=== PATIENT | female | born 1990 | race Hispanic/Latino ===

== ENCOUNTER 2017-02-26 17:05 | Outpatient (RCR) | payer MEDICAID, SELFPAY | END 2017-02-26 17:06 | LOC: NS 17:05 | PROVIDERS: Family Provider Family Medicine; PCP Family Medicine; Visit Provider Family Medicine | DX: E66.01 Morbid (severe) obesity due to excess calories (principal); Z68.41 Body mass index [BMI] 40.0-44.9, adult; Z71.3 Dietary counseling and surveillance | CPT/HCPCS: 97803 ==

== ENCOUNTER 2018-03-22 10:18 | Outpatient (RCR) | payer OTHER, SELFPAY ==
[2018-03-02 13:08] VITALS: BMI 40.9
== END 2018-04-04 23:59 ==
LOC: NS 10:18
PROVIDERS: Family Provider Family Medicine; PCP Internal Medicine; Visit Provider Internal Medicine
DX: E66.01 Morbid (severe) obesity due to excess calories (principal); Z68.41 Body mass index [BMI] 40.0-44.9, adult; Z71.3 Dietary counseling and surveillance
CPT/HCPCS: 97802

== ENCOUNTER 2018-04-26 21:29 | Emergency (ER) | payer OTHER, SELFPAY ==
[2018-03-02 13:08] VITALS: BMI 40.9
[2018-04-26 21:30] VITALS: BP 121/65; PULSE 76; RESP 18; TEMP 36.6; O2SAT 98; BMI 40.2
[2018-04-26 21:57] VITALS: O2SAT 99
[2018-04-26 22:38] VITALS: PULSE 85; RESP 18
[2018-04-26] MEDS: Ipratropium/Albuterol Sulfate 3 ML AMPUL.NEB INHALATION (22:38)
--- NOTE | 2018-04-26 22:52 | ED.VISSUMM ---
- ER Visit Summary Date of Service: 04/26/18 Chief Complaint: Asthma exacerbation History of Present Illness: The patient is a 27 F who presents with asthma exacerbation that began approximately 30 minutes prior to arrival. 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 Patient states she feels tight in her chest. Patient also states she has sharp pain in her chest. Patient admits to a cough but denies any sputum production. Patient denies any fevers or chills. Patient denies any rhinorrhea or sore throat. Physical Examination: Vital signs are stable. Patient is afebrile. Patient is in no acute distress. Oral mucosa is pink and moist. Neck is supple. Trachea is midline. There is no JVD noted. Heart was regular rate and rhythm. Lungs showed some diffuse expiratory wheezing. There is good respiratory effort noted. There are no retractions noted. Abdomen is soft nontender. Cranial nerves II through XII are intact. There are no focal motor or sensory deficits noted. The remaining physical exam is within normal limits. Emergency Department Course and Treatment: Patient was given a DuoNeb aerosol here. Patient's wheezing has resolved. Patient now states that she had pain in her right ear since she arrived here in the emergency department. The right external auditory canal is mildly edematous and erythematous. There is no drainage noted. Patient was given a prescription for Cortisporin otic suspension. Patient was also given an albuterol inhaler to take home with her. Patient was instructed to follow-up with her primary care physician in 5-7 days. Patient and her family understood and were agreeable with the plan. All questions were answered. Disposition: Discharge home Impression: 1. Asthma exacerbation 2. Right otitis externa This note was generated with [employer] dictation software. It may contain incorrect words, spelling, and punctuation that were not noted in review of the chart prior to signing ED Disposition - Plan for ED Patient: Disposition: Home or Assisted Living Diagnosis: Asthma, Right otitis externa Instructions: ED Reactive Airway Disease, ED Otitis Externa Prescriptions: Albuterol Inhaler [Ventolin Hfa] 2 puff INHALATION Q4H PRN PRN #1 inhaler PRN Reason: Wheezing Neomycin/Polymyxin B/Hydrocort [Wcxraijm-Zisuidcar-Xx Ear Susp] 4 drp OT 4X/DAY 7 Days #10 ml Referrals: Melonie Newman MD [Primary Care Provider] - 3-5 Days
--- NOTE | 2018-04-26 22:55 | ED.DCSUM_ITS ---
- ER Visit Summary Date of Service: 04/26/18 Chief Complaint: Asthma exacerbation History of Present Illness: The patient is a 27 F who presents with asthma exacerbation that began approximately 30 minutes prior to arrival. 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 Patient states she feels tight in her chest. Patient also states she has sharp pain in her chest. Patient admits to a cough but denies any sputum production. Patient denies any fevers or chills. Patient denies any rhinorrhea or sore throat. Physical Examination: Vital signs are stable. Patient is afebrile. Patient is in no acute distress. Oral mucosa is pink and moist. Neck is supple. Trachea is midline. There is no JVD noted. Heart was regular rate and rhythm. Lungs showed some diffuse expiratory wheezing. There is good respiratory effort noted. There are no retractions noted. Abdomen is soft nontender. Cranial nerves II through XII are intact. There are no focal motor or sensory deficits noted. The remaining physical exam is within normal limits. Emergency Department Course and Treatment: Patient was given a DuoNeb aerosol here. Patient's wheezing has resolved. Patient now states that she had pain in her right ear since she arrived here in the emergency department. The right external auditory canal is mildly edematous and erythematous. There is no drainage noted. Patient was given a prescription for Cortisporin otic suspensio n. Patient was also given an albuterol inhaler to take home with her. Patient was instructed to follow-up with her primary care physician in 5-7 days. Patient and her family understood and were agreeable with the plan. All questions were answered. Disposition: Discharge home Impression: 1. Asthma exacerbation 2. Right otitis externa This note was generated with [employer] dictation software. It may contain incorrect words, spelling, and punctuation that were not noted in review of the chart prior to signing ED Disposition - Plan for ED Patient: Disposition: Home or Assisted Living Diagnosis: Asthma, Right otitis externa Instructions: ED Reactive Airway Disease, ED Otitis Externa Prescriptions: Albuterol Inhaler [Ventolin Hfa] 2 puff INHALATION Q4H PRN PRN #1 inhaler PRN Reason: Wheezing Neomycin/Polymyxin B/Hydrocort [Vbmhtjwm-Ofrcsiruj-Ho Ear Susp] 4 drp OT 4X/DAY 7 Days #10 ml Referrals: Melonie Newman MD [Primary Care Provider] - 3-5 Days
[2018-04-26 23:30] VITALS: PULSE 91; RESP 15; O2SAT 96
== END 2018-04-26 23:31 | disposition home or self-care (01) ==
PROVIDERS: Emergency Provider Emergency Medicine; Family Provider Internal Medicine; PCP Internal Medicine
DX: J45.901 Unspecified asthma with (acute) exacerbation (principal); H60.91 Unspecified otitis externa, right ear
CPT/HCPCS: 94640; 99282

== ENCOUNTER 2018-05-03 10:30 | Outpatient (RCR) | payer OTHER, SELFPAY ==
[2018-03-02 13:08] VITALS: BMI 40.9
== END 2018-05-05 23:59 ==
LOC: NS 10:30
PROVIDERS: Family Provider Family Medicine; PCP Internal Medicine; Visit Provider Internal Medicine
DX: E66.01 Morbid (severe) obesity due to excess calories (principal); Z68.41 Body mass index [BMI] 40.0-44.9, adult; Z71.3 Dietary counseling and surveillance
CPT/HCPCS: 97803

== ENCOUNTER 2018-05-17 09:55 | Outpatient (RCR) | payer OTHER, SELFPAY ==
[2018-05-06 01:20] VITALS: BMI 40.9
== END 2018-06-04 23:59 ==
LOC: NS 09:55
PROVIDERS: Family Provider Family Medicine; PCP Internal Medicine; Visit Provider Internal Medicine
DX: E66.01 Morbid (severe) obesity due to excess calories (principal); Z68.41 Body mass index [BMI] 40.0-44.9, adult; Z71.3 Dietary counseling and surveillance
CPT/HCPCS: 97803

== ENCOUNTER 2018-05-23 23:43 | Emergency (ER) | payer OTHER, SELFPAY ==
[2018-05-21 14:43] VITALS: BMI 40.2
[2018-05-23 23:44] VITALS: BP 128/75; PULSE 77; RESP 18; TEMP 36.8; O2SAT 95; BMI 40.2
--- NOTE | 2018-05-24 00:11 | CT_ITS ---
STUDY: CT ABDOMEN AND PELVIS WITH CONTRAST REASON FOR EXAM: Female, 27 years old. Abdominal pain RADIATION DOSAGE (If Supplied By Facility): CTDIvol = ( 20.78 ) mGy, DLP = ( 1234.02 ) mGycm TECHNIQUE: Transaxial images were obtained from the dome of the diaphragm to the symphysis pubis with oral contrast. 100ML IV/Oral Isovue 300 was administered. Sagittal and coronal images were reconstructed. Individualized dose optimization techniques were used for this CT. COMPARISON: None. FINDINGS: Groundglass opacities within the lungs. The visualized portions of the heart are within normal limits. Normal liver. Normal gallbladder and extrahepatic biliary system. Normal spleen. Normal pancreas. Normal bilateral adrenal glands. Normal right kidney. Normal left kidney. Normal visualized stomach. Normal small intestine. Normal colon. There is non-visualization of the appendix. Normal abdominal aorta. Normal inferior vena cava. Normal retroperitoneum. Mild bladder wall thickening is present. Fluid within the endometrial canal. Right adnexal 1.9 cm low-attenuation structure likely ovarian. This could be further evaluated with pelvic ultrasound as clinically indicated. Lower vaginal canal 5 mm low-attenuation structure possibly representing a cyst. Normal abdominal wall. Normal osseous structures. CT/Abdomen/Pelvis WITH Contrast IMPRESSION: There is some mild groundglass opacities noted within the lung bases. Nonspecific. Could be related to motion, air trapping, infectious inflammatory process, edema versus other etiologies. The appendix was not visualized. There is no significant pericecal stranding identified. Bladder wall thickening. Recommend urinalysis to evaluate for infectious process. Right adnexal low-attenuation structure likely ovarian. Given patient's history of right-sided pain ultrasound may be performed to further evaluate. Also small amount of fluid within the endometrial canal. Other findings as discussed above. Electronically Signed: Aristeo Pennington, at 2:47 EDT Tel , Service support ,
--- NOTE | 2018-05-24 00:12 | ED.VISSUMM ---
- ER Visit Summary Date of Service: 05/24/18 Chief Complaint: Abdominal pain History of Present Illness: The patient is a 27 F who presents with abdominal pain. Is been present for about 3 days. It has been worsening. Currently she rates it as 8 out of 10. She describes it as cramping in nature. It is in the right lower abdomen. She reports nausea without vomiting. She had diarrhea with the initial illness which is since resolved. She denies dysuria frequency urgency. She was seen at an urgent care 3 days ago without definitive diagnosis and was told that if her symptoms worsen to go to the emergency department. Physical Examination: Afebrile vitals normal No distress Moist mucous membranes Heart regular rate and rhythm Lungs are clear Abdomen is soft she does have right lower quadrant tenderness without guarding without rebound Alert Test Results: CBC BMP urinalysis unremarkable and is negative. CT the abdomen and pelvis shows some mild groundglass opacity in the lung bases which is nonspecific. There is nonvisualization of the appendix but there is not any pericecal inflammatory changes. Bladder wall thickening is noted. There is a low-attenuation right adnexal structure. Emergency Department Course and Treatment: I initially ordered IV fluids morphine and Zofran. Patient did not want morphine and was just requesting ibuprofen so she was given IV Toradol. Workup as above. Right adnexal structure most likely an ovarian cyst. I advised the patient that she should have a follow-up pelvic ultrasound. Pelvic ultrasound is not available overnight and I do not think this needs to be done emergently. She was referred to gynecology. The mother sees Dr. Bell and would like the patient to follow-up with Dr. Bell. Patient does understand return for new or worsening symptoms and was discharged home. Treatment Plan: [] Disposition: Discharge Impression: Abdominal pain Right adnexal structure, probable ovarian cyst This note was generated with [employer] dictation software. It may contain incorrect words, spelling, and punctuation that were not noted in review of the chart prior to signing ED Disposition - Plan for ED Patient: Referrals: Melonie Newman MD [Primary Care Provider] -
[2018-05-24] MEDS: 0.9% Normal Saline 1,000 ML 1000 ML IV (00:26)
[2018-05-24 00:27] LABS: Mucous, Urine 0 SEEN /hpf (<or=2+); Red Blood Cells-Urine 0 SEEN /hpf (0-5)
[2018-05-24] MEDS: Ondansetron 4 MG/2 ML Vial IV (00:27)
[2018-05-24 00:29] LABS: Color, Urine Yellow (Yellow); Glucose, Dipstick Normal (Normal); Ketone-Dipstick Negative (Negative); Leukocyte Esterase-Dipstick Negative /ul (Negative); Nitrite-Dipstick Negative (Negative); Occult Blood-Urine Negative /ul (Negative); Protein-Dipstick Negative (Negative); Specific Gravity, Urine 1.015 (1.002-1.030); Urine Bilirubin Dipstick Negative (Negative); Urine Clarity Clear (Clear); Urine Urobilinogen Normal (Normal); Urine pH 6.5 (5.0 - 8.0)
[2018-05-24 00:32] LABS: Absolute Lymphocyte Count 3.07 X10^3/ul (0.83-4.51); Absolute Neutrophil Count 6.1 X10^3/uL (2.0-7.7); Basophil# 0.03 X10^3/uL; Basophil% 0.3 % (0-1); Eosinophil# 0.57 X10^3/uL; Eosinophils% 5.4 % (0-5); Hemoglobin 13.6 g/dl (12.0-15.0); Internal QC Validated? YES +Cl - CLEAR BKGD; Lymphocyte # 3.07 X10^3/ul (4.0); Lymphocyte % 29.1 % (19-41); Mean Corp Hgb Conc 33.2 g/gl (32-36); Mean Corpuscular Hgb 26.9 pg (27.0-32.0); Mean Corpuscular Volume 81.2 fL (81-99); Monocyte# 0.81 X10^3/uL; Monocyte% 7.7 % (0-10); Neutrophil # 6.06 X10^3/uL (2.7-7.7); Neutrophil % 57.3 % (47-70); Platelet Count 448 K/mm3 (150-450); Pregnancy, Urine Negative Negative; Red Blood Count 5.05 M/mm3 (4.2-5.4); White Blood Count 10.6 K/mm3 (4.4-11.0)
[2018-05-24] MEDS: Ketorolac 30 MG/ML Syringe IV (00:34)
[2018-05-24 00:37] LABS: POSITIVE COUNT NO; POSITIVE DIFFERENTIAL NO; POSITIVE MORPHOLOGY NO
[2018-05-24 00:46] LABS: Squamous Epithelial Cells - UA 5-10 SEEN /hpf (5-10)
[2018-05-24 00:47] LABS: Bacteria RARE /hpf (None Seen); White Blood Cells 0-5 SEEN /hpf (0-5)
[2018-05-24 00:49] LABS: Anion Gap 6 (5-15); BUN 13 mg/dL (7-18); BUN/Creat Ratio 18.2 RATIO (10-20); Calcium,Total 8.7 mg/dL (8.5-10.1); Chloride 106 mmol/L (98-107); Creatinine, Serum 0.71 mg/dL (0.55-1.02); EST Glomerular Filtration Rate 103 mL/min (>60); Est Glom Filt Rate - Afr Amer 125 mL/min (>60); Glucose 82 mg/dL (74-106); Potassium 3.7 mmol/L (3.5-5.1); Sodium Level 138 mmol/L (136-145)
[2018-05-24 02:13] VITALS: BP 122/72; PULSE 87; RESP 16; O2SAT 98
--- NOTE | 2018-05-24 03:00 | ED.DEP ---
ED Disposition - Plan for ED Patient: Instructions: ED Abdominal Pain Unkn Cause Referrals: Melonie Newman MD [Primary Care Provider] - Yoana Bell MD [STAFF PHYSICIAN] - Additional Instructions: Your CAT scan showed an abnormality near your right ovary. You should have a pelvic ultrasound to further evaluate this. Follow-up with gynecology. Return for any new or worsening symptoms.
[2018-05-24 03:09] VITALS: BP 118/72; PULSE 78; RESP 16; O2SAT 98
== END 2018-05-24 03:10 | disposition home or self-care (01) ==
PROVIDERS: Emergency Provider Emergency Medicine; Family Provider Internal Medicine; PCP Internal Medicine
DX: R10.9 Unspecified abdominal pain (principal); R11.0 Nausea; J45.909 Unspecified asthma, uncomplicated
CPT/HCPCS: 74177; 80048; 81001; 81025; 85025; 96361; 96374; 96375; 99283; Q9967; J2405

== ENCOUNTER → 2018-06-10 07:56 | Outpatient (CLI) | payer OTHER, SELFPAY ==
[2018-05-23 23:44] VITALS: BMI 40.2
[2018-06-05 01:21] VITALS: BMI 40.9
--- NOTE | 2018-06-10 07:58 | US_ITS ---
STUDY: ULTRASOUND OF THE FEMALE PELVIS - COMPLETE REASON FOR EXAM: Female, 27 years old. Pelvic right pain TECHNIQUE: Transabdominal and transvaginal (Transvaginal imaging, if present, was performed for enhanced visualization of uterus and endometrium, and posterior adnexal structures). COMPARISON: None. FINDINGS: Uterus anteverted, midline, 7.5 x 4.9 x 3.8 cm. Normal myometrial echotexture. Endometrium 6 mm, normal echotexture. Cervix normal. There is no cul-de-sac or adnexal free fluid. There is no adnexal mass or suspicious cyst. Right ovary 24 x 25 x 18 mm, left ovary 31 x 32 x 20 mm, each containing physiologic follicles, exhibiting appropriate echotexture and vascularity. US/Transvaginal Non- IMPRESSION: Normal female pelvis. Electronically Signed: Froylan Marte MD at 9:22 EDT Tel , Service support ,
--- NOTE | 2018-06-10 07:58 | US_ITS ---
STUDY: ULTRASOUND OF THE FEMALE PELVIS - COMPLETE REASON FOR EXAM: Female, 27 years old. Pelvic right pain TECHNIQUE: Transabdominal and transvaginal (Transvaginal imaging, if present, was performed for enhanced visualization of uterus and endometrium, and posterior adnexal structures). COMPARISON: None. FINDINGS: Uterus anteverted, midline, 7.5 x 4.9 x 3.8 cm. Normal myometrial echotexture. Endometrium 6 mm, normal echotexture. Cervix normal. There is no cul-de-sac or adnexal free fluid. There is no adnexal mass or suspicious cyst. Right ovary 24 x 25 x 18 mm, left ovary 31 x 32 x 20 mm, each containing physiologic follicles, exhibiting appropriate echotexture and vascularity. US/Pelvic (Non ) IMPRESSION: Normal female pelvis. Electronically Signed: Froylan Matre MD at 9:22 EDT Tel , Service support ,
== END ==
PROVIDERS: Family Provider Internal Medicine; PCP Internal Medicine; Referring Provider Obstetrics & Gynecology; Visit Provider Obstetrics & Gynecology
DX: R10.2 Pelvic and perineal pain (principal)
CPT/HCPCS: 76830; 76856; 93976

== ENCOUNTER 2018-06-14 09:38 | Outpatient (RCR) | payer OTHER, SELFPAY ==
[2018-06-05 01:21] VITALS: BMI 40.9
== END 2018-06-14 23:59 | disposition home or self-care (01) ==
LOC: NS 09:38
PROVIDERS: Family Provider Internal Medicine; PCP Internal Medicine; Visit Provider Internal Medicine
DX: E66.01 Morbid (severe) obesity due to excess calories (principal); Z68.41 Body mass index [BMI] 40.0-44.9, adult; Z71.3 Dietary counseling and surveillance
CPT/HCPCS: 97803

== ENCOUNTER 2018-07-17 11:44 | Emergency (ER) | payer OTHER, SELFPAY ==
[2018-07-17 11:44] VITALS: BMI 45.7
[2018-07-17 11:46] VITALS: BP 131/79; PULSE 86; RESP 16; TEMP 36.2; O2SAT 99; BMI 41.5
--- NOTE | 2018-07-17 12:01 | ED.VIS.GEN ---
History of Present Illness Chief Complaint: Upper Extremity Injury Detail of Chief Complaint: Patient denies injury Informant: Patient Onset: Weeks Context: Sudden Onset Timing: Continuous Quality: Pump volar ulnar side Location: left ring finger Current Severity: - - No pain Maximum Severity: - - not applicable Worsened by: Nothing Relieved by: Nothing Associated Symptoms: No associated symptoms Narrative: Patient is a 28-year-old who presents with 2 complaints one bump volar ulnar side left ring finger and intermittent right lower quadrant pain for the past week and last month prior to menses. She denies injury to the finger. She denies the finger getting stuck. She states she injured it a while back. She denies tenderness or pain with palpation or use of the finger. She denies paresthesia, anesthesia or motor weakness. Patient also reports right lower quadrant pain this been intermittent for the past week. She does report frequency and urgency the past several days. She denies history of diabetes. She denies dysuria or hematuria. She denies history of renal ureterolithiasis. She denies fever, chills or night sweats. She denies anorexia. She has history of ovarian cysts. She states she is not sexually active. She reports no symptoms of . Prior similar symptoms: Yes - Regarding right lower quadrant abdominal pain Recent Illness/Hospitalization: No - Past Medical History (1) Asthma Status: Chronic Past Medical History - Allergies and Home Meds Allergies/Adverse Reactions: Allergies cephalexin monohydrate [From Keflex] Allergy (Verified 07/17/18 11:46) Rash latex Allergy (Verified 07/17/18 11:46) Unknown SEAFOOD Allergy (Uncoded 07/17/18 11:46) Anaphylaxis Primary Care Physician: Melonie Newman MD [Primary Care Provider] - Prior records reviewed: Yes Surgical History: no surgical history Lives: Alone Smoking Status: Never smoker Alcohol: None Review of Systems General: Denies: Chills, Fever, Malaise, Sweats Cardiovascular: Denies: Chest pain, Palpitations Respiratory: Denies: Dyspnea, Cough, Dyspnea on exertion Gastrointestinal: Reports: Abdominal pain. Denies: Nausea, Vomiting, Diarrhea, Constipation, Melena, Hematochezia, -, - Genitourinary: Reports: Frequency. Denies: Dysuria, Hematuria Musculoskeletal: Denies: Myalgias, Arthralgias, Neck pain, Back pain, Swelling, Extremity Pain, -, - Neurological: Denies: Headache, Weakness, Numbness Hematologic: Denies: Easy bruising, Easy bleeding Allergy: Denies: Uticaria, Swelling of the mouth Physical Exam Vital Signs/Narrative: Vital Signs Temp Pulse Resp BP Pulse Ox 07/17/18 11:46 97.1 F L 86 16 131/79 H 99 Inital Vital Signs reviewed: Yes General: Well nourished, Well developed, No Acute Distress Head: Normocephalic, Atraumatic Eyes: Perrl, EOMI. Negative for: Pale conjunctiva, Scleral icterus ENT: Moist mucous membranes, No rhinorrhea Neck: Negative for: Supple, Nontender, No lymphadenopathy, No JVD, - Cardiovascular: Regular rate, Regular rhythm, No murmurs. Negative for: Normal S1, Normal S2 Respiratory: No distress, CTA bilaterally, Chest nontender Abdomen: Soft, Nondistended, Normal bowel sounds, No masses, Tender. Negative for: Nontender, Guarding, Rebound tenderness, Hyperactive bowel sounds, Hepatomegaly, Splenomegaly, Mass, Pulsatile mass Back: Nontender, Normal Inspection. Negative for: CVA tenderness Extremities: Nontender, No edema Skin: Normal color, No rash, No Trauma. Negative for: Cyanosis, Diaphoresis, Jaundice Neurological: Alert, Oriented x3, Cranial nerves II-XII grossly intact, Normal Strength, Normal Sensation Psychological: Normal affect, Normal Mood Diagnostic/Tx/Re-eval Laboratory Results 07/17/18 07/17/18 12:05 12:15 WBC 9.7 RBC 5.04 Hgb 14.0 Hct 42.1 MCV 83.5 MCH 27.8 MCHC 33.3 RDW 14.1 RDW Differential 43.2 Plt Count 449 MPV 9.6 Immature Gran % (Auto) 0.300 Neut % (Auto) 61.5 Lymph % (Auto) 22.6 [place] % (Auto) 7.8 Eos % (Auto) 7.5 H Baso % (Auto) 0.3 Absolute Neuts (auto) 6.0 Absolute Lymphs (auto) 2.19 Total Counted Not Reportable Urine Color Yellow Urine Clarity Sl. Cloudy Urine pH 7.0 Ur Specific [place] 1.010 Urine Protein Negative Urine Glucose (UA) Normal Urine Ketones Negative Urine Occult Blood Negative Urine Nitrite Negative Urine Bilirubin Negative Urine Urobilinogen Normal Ur Leukocyte Esterase Negative Urine RBC 0 SEEN Urine WBC 0 SEEN Ur Squamous Epith Cells 0-5 SEEN Urine Bacteria 0 SEEN Urine Mucus 0 SEEN - Medical Decision Making Termination of the digit reveals no evidence of trigger finger. This most likely represents granulomatous tissue. There is no evidence of infection. Since patient has discomfort in the right lower quadrant with urinary symptoms UA and CBC was obtained. Differential would include UTI, pyelonephritis, mesenteric adenitis, atypical presentation for inflammatory bowel disorder or appendicitis since pain is intermittent. With normal white count normal UA intermittent right lower quadrant pain doubt appendicitis. There is no evidence of cystitis. Patient was informed she has abdominal pain of unknown etiology. ED Disposition - Plan for ED Patient: Disposition: Home or Assisted Living Diagnosis: Acute abdominal pain in right lower quadrant Instructions: ED Abdominal Pain Unkn Cause Referrals: Melonie Newman MD [Primary Care Provider] - 1-2 Days if not improving
[2018-07-17 12:20] LABS: Bacteria 0 SEEN /hpf (None Seen); Mucous, Urine 0 SEEN /hpf (<or=2+); Red Blood Cells-Urine 0 SEEN /hpf (0-5); White Blood Cells 0 SEEN /hpf (0-5)
[2018-07-17 12:24] LABS: Absolute Lymphocyte Count 2.19 X10^3/ul (0.83-4.51); Basophil# 0.03 X10^3/uL; Basophil% 0.3 % (0-1); Eosinophil# 0.73 X10^3/uL; Eosinophils% 7.5 % (0-5); Hematocrit 42.1 % (37-47); Lymphocyte # 2.19 X10^3/ul (4.0); Lymphocyte % 22.6 % (19-41); Mean Corp Hgb Conc 33.3 g/gl (32-36); Mean Corpuscular Hgb 27.8 pg (27.0-32.0); Mean Corpuscular Volume 83.5 fL (81-99); Mean Platelet Vol. 9.6 fl (6.2-12.0); Monocyte# 0.76 X10^3/uL; Monocyte% 7.8 % (0-10); Neutrophil # 5.96 X10^3/uL (2.7-7.7); Neutrophil % 61.5 % (47-70); POSITIVE COUNT NO; POSITIVE DIFFERENTIAL NO; POSITIVE MORPHOLOGY NO; Platelet Count 449 K/mm3 (150-450); RBC Distribution Width CV 14.1 % (11.6-14.6); RBC Distribution Width SD 43.2 fl (35.1-43.9); Red Blood Count 5.04 M/mm3 (4.2-5.4); White Blood Count 9.7 K/mm3 (4.4-11.0)
[2018-07-17 12:25] LABS: Color, Urine Yellow (Yellow); Glucose, Dipstick Normal (Normal); Ketone-Dipstick Negative (Negative); Leukocyte Esterase-Dipstick Negative /ul (Negative); Nitrite-Dipstick Negative (Negative); Occult Blood-Urine Negative /ul (Negative); Protein-Dipstick Negative (Negative); Urine Bilirubin Dipstick Negative (Negative); Urine Clarity Sl. Cloudy (Clear); Urine Urobilinogen Normal (Normal)
[2018-07-17 12:30] LABS: Squamous Epithelial Cells - UA 0-5 SEEN /hpf (5-10)
== END 2018-07-17 13:46 | disposition home or self-care (01) ==
PROVIDERS: Emergency Provider Emergency Medicine; Family Provider Internal Medicine; PCP Internal Medicine
DX: R10.31 Right lower quadrant pain (principal); Z88.1 Allergy status to other antibiotic agents; J45.909 Unspecified asthma, uncomplicated
CPT/HCPCS: 36415; 81001; 85025; 99282

== ENCOUNTER → 2018-09-11 08:47 | Outpatient (CLI) | payer OTHER, SELFPAY ==
[2018-09-09 10:33] VITALS: BMI 41.5
--- NOTE | 2018-09-11 08:54 | US_ITS ---
STUDY: ULTRASOUND BREAST - RIGHT REASON FOR EXAM: Female, 28 years old. Palpable lump in the right breast. TECHNIQUE: Axial and longitudinal images of the RIGHT breast were performed with a high resolution ultrasound transducer. COMPARISON: Comparison is made with prior mammogram done earlier in the day. FINDINGS: RIGHT Breast: The central portion of the breast was examined by ultrasound. The patient was unable to pinpoint the exact location of the palpable abnormality. There is a homogeneous fibroglandular tissue. No sonographic abnormality is seen. US/Breast Limited Unilateral IMPRESSION: No sonographic abnormality is seen. ASSESSMENT CATEGORY: BIRADS Category 1: Negative. A letter regarding these results will be sent to the patient by the facility within 30 days. Electronically Signed: Alonzo Delaney, at 10:17 EDT , Service support ,
--- NOTE | 2018-09-11 08:54 | BI_ITS ---
MAMMOGRAPHY - BILATERAL DIAGNOSTIC REASON FOR EXAM: Female, 28 years old. One-week history of a right breast lump. PERTINENT HISTORY: Non-contributory. TECHNIQUE: Digital bilateral breast rosas (3D mammographic acquisition) in the CC and MLO projections. 2-D mediolateral oblique (MLO) and craniocaudad (CC) views of both breasts were obtained. CAD: Full Field Digital Mammography with Computer Added Detection was performed. COMPARISON: None. Baseline examination. FINDINGS: Breast Composition: There are scattered areas of fibroglandular density. There are no dominant masses or suspicious calcifications. No other significant abnormalities are identified. BI/SCREEN MAMM (CAD) W/ROSAS BILAT IMPRESSION: Negative diagnostic mammogram. With the patient's history of a palpable abnormality in the right breast, correlation with ultrasound is recommended. ASSESSMENT CATEGORY: BIRADS Category 0: Incomplete. Need additional imaging evaluation. A letter regarding these results will be sent to the patient by the facility within 30 days. Approximately 10% of breast cancers are not detected by mammography. A normal mammogram should not delay biopsy of a clinically suspicious abnormality. Electronically Signed: Alonzo Delaney, at 10:14 EDT , Service support ,
== END ==
PROVIDERS: Family Provider Internal Medicine; PCP Internal Medicine; Referring Provider Obstetrics & Gynecology; Visit Provider Obstetrics & Gynecology
DX: N63.10 Unspecified lump in the right breast, unspecified quadrant (principal)
CPT/HCPCS: 76642; 77063; 77067

== ENCOUNTER → 2018-09-17 09:41 | Outpatient (CLI) | payer OTHER, SELFPAY ==
[2018-09-17 09:16] VITALS: BMI 41.5
[2018-09-17 12:44] LABS: Vitamin D,25 Hydroxy 14.9 ng/mL (29.95-100.01)
[2018-09-18 16:07] LABS: ANTINUCLEAR ANTIBODIES DIRECT Positive (Negative); Anti-Centromere B Ab <0.2 AI (0.0-0.9); Anti-Chromatin 0.2 AI (0.0-0.9); Anti-Jo <0.2 AI (0.0-0.9); Anti-Scleroderma-70 AB <0.2 AI (0.0-0.9); RNP Ab 3.2 AI (0.0-0.9); SJOGREN'S Anti-SS-A test < 0.2 AI (0.0-0.9); SJOGREN'S Anti-SS-B test < 0.2 AI (0.0-0.9); Smith Ab <0.2 AI (0.0-0.9)
[2018-09-19 08:19] LABS: Anti-dsDNA Ab <1 IU/mL (0-9)
== END ==
PROVIDERS: Family Provider Internal Medicine; PCP Internal Medicine; Visit Provider Internal Medicine
DX: E55.9 Vitamin D deficiency, unspecified (principal); M32.9 Systemic lupus erythematosus, unspecified
CPT/HCPCS: 36415; 82306; 86038; 86225; 86235

== ENCOUNTER 2018-11-07 20:58 | Emergency (ER) | payer OTHER, SELFPAY ==
[2018-09-17 09:16] VITALS: BMI 41.5
[2018-11-07 21:00] VITALS: BP 117/79; PULSE 89; RESP 24; TEMP 35.9; O2SAT 95; BMI 43.0
[2018-11-07 21:09] VITALS: O2SAT 96
[2018-11-07] MEDS: Ipratropium/Albuterol Sulfate 3 ML AMPUL.NEB INHALATION (21:10)
[2018-11-07] MEDS: Albuterol 2.5 MG/3 ML VIAL.NEB. INHALATION ×2 (21:10)
[2018-11-07 21:11] VITALS: PULSE 105; RESP 20
--- NOTE | 2018-11-07 21:35 | ED.VIS.GEN ---
History of Present Illness Chief Complaint: Asthma Informant: Patient Onset: Today Context: Sudden Onset Timing: Continuous Current Severity: Severe Maximum Severity: Severe Narrative: The patient presents to the emergency department with an asthma exacerbation. Patient has a history of underlying asthma. She was at work. She thinks that she may been exposed to something. She began have tightness across her chest and wheezing. She tried her inhaler but thinks it was empty. She presented here for further evaluation. She has not not been intubated for her asthma. She denies any fevers or chills. She said no recent upper respiratory illness. Prior similar symptoms: Yes Recent Illness/Hospitalization: No Past Medical History - Allergies and Home Meds Allergies/Adverse Reactions: Allergies cephalexin monohydrate [From Keflex] Allergy (Verified 11/07/18 21:00) Rash latex Allergy (Verified 11/07/18 21:00) Unknown SEAFOOD Allergy (Uncoded 11/07/18 21:00) Anaphylaxis Primary Care Physician: Melonie Newman MD [Primary Care Provider] - Prior records reviewed: Yes Past Medical History: - - Asthma Surgical History: no surgical history Smoking Status: Never smoker Review of Systems General: Denies: Chills, Fever, Sweats Eyes: Denies: Visual changes - bilaterally, Diplopia ENT: Denies: Rhinorrhea, Sore throat Cardiovascular: Denies: Chest pain, Palpitations Respiratory: Reports: Dyspnea, Cough. Denies: Dyspnea on exertion Gastrointestinal: Denies: Abdominal pain, Nausea, Vomiting, Diarrhea, Melena, Hematochezia Genitourinary: Denies: Dysuria, Hematuria, Frequency Musculoskeletal: Denies: Back pain, Extremity Pain Skin: Denies: Rash, Wounds Neurological: Denies: Headache, Weakness, Numbness Physical Exam Vital Signs/Narrative: Vital Signs Temp Pulse Resp BP Pulse Ox 11/07/18 21:11 105 H 20 H 11/07/18 21:09 96 11/07/18 21:00 96.6 F L 89 24 H 117/79 95 Inital Vital Signs reviewed: Yes General: Well nourished, Well developed, No Acute Distress Head: Normocephalic, Atraumatic Eyes: Perrl, EOMI ENT: Moist mucous membranes, No rhinorrhea Neck: Supple, Nontender Cardiovascular: Regular rate, Regular rhythm, No murmurs Respiratory: No distress, Chest nontender, Wheezing, Decreased Air Movement Abdomen: Soft, Nontender, Nondistended, Normal bowel sounds Back: Nontender, Normal Inspection Extremities: Nontender, No edema Skin: Normal color, No rash Neurological: Alert, Oriented x3, Cranial nerves II-XII grossly intact, Normal Strength, Normal Sensation Psychological: Normal affect, Normal Mood Diagnostic/Tx/Re-eval - Medical Decision Making The patient presents to the emergency department with wheezing all lung akers. She was immediately given DuoNeb and albuterol treatment. Within minutes, she had marked improvement in aeration. She had resolution of her tachypnea. She was never hypoxic. The patient was given oral prednisone. She was observed. She is feeling markedly improved. She wants to do outpatient therapy and I feel this is reasonable. She is given a new inhaler. She will be kept on prednisone for the next 5 days. The patient will be discharged home. Impression 1. Acute asthma exacerbation ED Disposition - Plan for ED Patient: Instructions: ASTHMA, Acute (Adult) Prescriptions: Prednisone [Deltasone] 60 mg PO DAILY #15 tab Prescription Printed Referrals: Melonie Newman MD [Primary Care Provider] -
[2018-11-07 22:00] VITALS: BP 135/82; PULSE 95; RESP 17; O2SAT 95
[2018-11-07] MEDS: predniSONE 20 MG Tablet 60 MG PO (22:05)
== END 2018-11-07 22:09 | disposition home or self-care (01) ==
LOC: ED 21:39
PROVIDERS: Emergency Provider Emergency Medicine; Family Provider Internal Medicine; PCP Internal Medicine
DX: J45.901 Unspecified asthma with (acute) exacerbation (principal)
CPT/HCPCS: 94640; 99284

== ENCOUNTER 2021-08-23 17:49 | Emergency (ER) | payer BC, SELFPAY ==
[2021-08-23 17:50] VITALS: BP 126/93; PULSE 76; RESP 18; TEMP 36.3; BMI 44.9
[2021-08-23 17:54] VITALS: BP 126/93; PULSE 76; RESP 18; TEMP 36.3
--- NOTE | 2021-08-23 18:22 | CT_ITS ---
STUDY: CT ABDOMEN AND PELVIS WITH CONTRAST REASON FOR EXAM: Female, 31 years old. RLQ abdominal pain RADIATION DOSAGE (If Supplied By Facility): CTDIvol = ( 18.73 ) mGy, DLP = ( 1280.36 ) mGycm TECHNIQUE: Transaxial images were obtained from the dome of the diaphragm to the symphysis pubis without oral contrast. IV 100mL Isovue-300 was administered. Sagittal and coronal images were reconstructed. Individualized dose optimization techniques were used for this CT. COMPARISON: 05/24/2018 FINDINGS: The visualized lung bases are unremarkable. The visualized portions of the heart are within normal limits. Normal liver. Contracted thick-walled gallbladder without calcified stones likely physiologic. If concern for gallbladder disease ultrasound recommended. Normal spleen. Normal pancreas. Normal bilateral adrenal glands. Normal right kidney. Normal left kidney. Normal visualized stomach. Nonspecific ileus with diffuse fecal retention in the colon. Appendix is not clearly visualized. There are no secondary signs for acute sinus.. Normal abdominal aorta. Normal inferior vena cava. Normal retroperitoneum. Incompletely distended thick-walled bladder likely of no significance Uterus is deviated towards the left. There are bilateral ovarian cysts Normal abdominal wall. Normal osseous structures. CT/Abdomen/Pelvis W IV Cont ONLY IMPRESSION: Contracted thick-walled gallbladder without calcified stones likely physiologic. If concern for gallbladder disease ultrasound recommended Mild nonspecific ileus diffuse fecal retention in colon.. No evidence for small bowel obstruction or acute appendicitis. Bilateral ovarian cysts which may be further assessed with pelvic sonography if clinically Electronically Signed: Ladarius Garduno MD at 20:33 EDT ,
--- NOTE | 2021-08-23 18:22 | EDS_ITS ---
HPI HPI - GI History of Present Illness Chief Complaint: Abd Pain Narrative Narrative: 31-year-old female presenting with 4 days of right lower quadrant abdominal pain. She states is slow and gradual. Is now worse that she states is 7 of 10. She has nausea without vomiting. No fevers. She does admit to some diarrhea without black or bloody stools. Patient has no history of abdominal surgeries. She states her only medical problems is asthma. Patient has no sick contacts. No history of kidney stones. Patient reports she started her her menstrual period 4 days ago. PFSH [facility] Medical History Asthma Home Medications naproxen 500 mg tablet 500 mg PO BID-TID PRN pain #60 tabs 09/09/18 [Rx Last Taken Unknown] benzonatate 100 mg capsule (Lenore Maurer) 100 mg PO TID PRN cough #30 caps 04/22/19 [Rx Last Taken Unknown] codeine 10 mg-guaifenesin 100 mg/5 mL oral liquid 5 ml PO Q6H PRN cough #120 mL 04/22/19 [Rx Last Taken Unknown] prednisone 10 mg tablet See Rx Instructions PO QDAY #30 tabs 04/22/19 [Rx Last Taken Unknown] cholecalciferol (vitamin D3) 1,250 mcg (50,000 unit) capsule See Rx Instructions .Route .COMPLEX #12 caps 06/10/19 [Rx Last Taken Unknown] epinephrine 0.3 mg/0.3 mL injection, auto-injector 0.3 ml IM ONCE PRN anaphylaxis #1 ea 10/21/19 [Rx Last Taken Unknown] fluticasone furoate 200 mcg-vilanterol 25 mcg/dose inhalation powder (Breo Ellipta) 1 inh inhalation DAILY #90 ea 10/21/19 [Rx Last Taken Unknown] albuterol sulfate 0.63 mg/3 mL solution for nebulization 0.63 mg (3 mL) inhalation Q4H PRN shortness of breath or wheezing #90 mL 12/31/19 [Rx Last Taken Unknown] albuterol sulfate 90 mcg/actuation aerosol inhaler 2 puff inhalation Q6H PRN shortness of breath or wheezing #8.5 grams 07/14/20 [Rx Last Taken Unknown] Allergy/AdvReac Type Severity Reaction Status Date / Time azithromycin Allergy Mild Rash Verified 04/22/19 08:37 cephalexin monohydrate Allergy Rash Verified 04/22/19 08:37 [From Keflex] latex Allergy Unknown Verified 04/22/19 08:37 SEAFOOD Allergy Anaphylaxis Uncoded 04/22/19 08:37 Family History Other Arthritis Asthma Hyperlipemia Osteoporosis Thyroid disorder Surgical History History of tonsillectomy Social History Smoking Status: Never smoker alcohol intake: never substance use type: does not use caffeine: Yes what type of physical activity do you participate in: none and walking seatbelt use: always do you feel safe at home: Yes additional social history: Single-works at [employer] [facility] ED Constitutional Constitutional ED: Denies chills or fever(s) ENT ENT ED: Denies rhinorrhea or sore throat Cardiovascular Cardiovascular: Denies chest pain or palpitations Respiratory/Chest Respiratory/Chest: Denies cough or dyspnea Gastrointestinal Gastrointestinal: Reports abdominal pain, diarrhea and nausea Genitourinary Genitourinary ED: Denies dysuria Musculoskeletal Musculoskeletal: Denies arthralgias or back pain Integumentary Denies abscess or Abrasions Neurologic Neurologic: Denies headache(s) or paresthesias Psychiatric Psychiatric: Denies anxiety or depression EXAM Physical Exam Const Vital Signs: 08/23/21 17:50 08/23/21 17:54 08/23/21 19:49 Temperature 97.3 F L 97.3 F L Temperature Source Temporal Temporal Pulse Rate 76 76 Respiratory Rate 18 18 16 Blood Pressure 126/93 H 126/93 H Blood Pressure Mean 104 104 08/23/21 21:00 08/23/21 21:06 Temperature Temperature Source Pulse Rate Respiratory Rate 18 18 Blood Pressure Blood Pressure Mean Positive well nourished and obese General Appearance ED: NAD; Negative for pallor Nutritional Appearance: obese HEENT Reports moist mucous membranes normocephalic and atraumatic Eyes PERRL Resp normal respiratory effort and clear to auscultation bilaterally Auscultation: Negative for rales, rhonchi or wheezes Cardio regular rate and regular rhythm GI Palpation: tender RLQ; Negative for guarding or rigid Back/Spine no CVA tenderness Neuro CN's II-XII intact bilaterally, moves all extremities and no sensory deficits noted Sensorium / Orientation: alert Motor Exam: strength 5/5 throughout Psych mental status grossly normal Skin General Skin Exam: Negative for jaundice or pallor MDM MDM MDM Narrative Medical decision making narrative: Patient presenting with right lower quadrant pain. Is been present for 4 days. Patient medicated with morphine, Zofran. Blood work is obtained. CBC and CMP are within normal limits. Serum hCG is negative. Urinalysis negative for in fection. CT of the abdomen pelvis is performed does not show any appendicitis. It does show a high degree of diffuse fecal retention. It does show a contracted gallbladder with calcified stones however the patient has no right upper quadrant tenderness. LFTs are normal. Patient counseled on findings. She states she will take MiraLAX at home tonight. She requests a work note for tomorrow so that she can stay home and have a bowel movement although she still states that she works from home. This was provided. Patient discharged stable condition. Impression: 1 constipation 2. Abdominal pain Lab Data Labs: Laboratory Results - last 24 hr 08/23/21 08/23/21 08/23/21 18:09 18:09 18:09 WBC 9.6 RBC 4.82 Hgb 13.6 Hct 41.4 MCV 85.9 MCH 28.2 MCHC 32.9 RDW Std Deviation 39.6 RDW Coeff of Avinash 12.8 Plt Count 517 H MPV 9.7 Immature Gran % (Auto) 0.500 Neut % (Auto) 55.6 Lymph % (Auto) 29.2 [place] % (Auto) 7.6 Eos % (Auto) 6.6 H Baso % (Auto) 0.5 Absolute Neuts (auto) 5.3 Absolute Lymphs (auto) 2.80 Nucleated RBC % 0 Sodium 138 Potassium 4.0 Chloride 106 Carbon Dioxide 27.0 Anion Gap 5 BUN 13 Creatinine 0.69 Estim Creat Clear Calc 92.58 Est GFR (MDRD) Af Amer 127 Est GFR (MDRD) Non-Af 105 BUN/Creatinine Ratio 18.9 Glucose 99 Calcium 9.2 Total Bilirubin 0.20 AST 14 L ALT 15 Alkaline Phosphatase 66 Total Protein 7.4 Albumin 3.4 Globulin 4.0 Albumin/Globulin Ratio 0.8 L Serum , Qual NEGATIVE Urine Color Urine Clarity Urine pH Ur Specific [place] Urine Protein Urine Glucose (UA) Urine Ketones Urine Occult Blood Urine Nitrite Urine Bilirubin Urine Urobilinogen Ur Leukocyte Esterase Urine RBC Urine WBC Ur Squamous Epith Cells Urine Bacteria Urine Mucus 08/23/21 18:27 WBC RBC Hgb Hct MCV MCH MCHC RDW Std Deviation RDW Coeff of Avinash Plt Count MPV Immature Gran % (Auto) Neut % (Auto) Lymph % (Auto) [place] % (Auto) Eos % (Auto) Baso % (Auto) Absolute Neuts (auto) Absolute Lymphs (auto) Nucleated RBC % Sodium Potassium Chloride Carbon Dioxide Anion Gap BUN Creatinine Estim Creat Clear Calc Est GFR (MDRD) Af Amer Est GFR (MDRD) Non-Af BUN/Creatinine Ratio Glucose Calcium Total Bilirubin AST ALT Alkaline Phosphatase Total Protein Albumin Globulin Albumin/Globulin Ratio Serum , Qual Urine Color Straw Urine Clarity Clear Urine pH 7.0 Ur Specific [place] 1.005 Urine Protein Negative Urine Glucose (UA) Normal Urine Ketones Negative Urine Occult Blood Negative Urine Nitrite Negative Urine Bilirubin Negative Urine Urobilinogen Normal Ur Leukocyte Esterase 25 H Urine RBC 0 SEEN Urine WBC 0-5 SEEN Ur Squamous Epith Cells 5-10 SEEN Urine Bacteria 3+ Urine Mucus 0 SEEN Radiography Diagnostic Testing: Clinical Impression(s) from Imaging Studies Abdomen/Pelvis CT 08/23/21 18:22 IMPRESSION: Contracted thick-walled gallbladder without calcified stones likely physiologic. If concern for gallbladder disease ultrasound recommended Mild nonspecific ileus diffuse fecal retention in colon.. No evidence for small bowel obstruction or acute appendicitis. Bilateral ovarian cysts which may be further assessed with pelvic sonography if clinically Electronically Signed: Ladarius Garduno MD at 20:33 EDT Reading Location ID and State: [address] [place] [address] , Service support , Discharge Plan Triage Chief Complaint: Abd Pain ED Provider: Lewis Stewart Dx/Rx/DC Orders Instructions: ED Constipation (Adult) Prescriptions: No Action naproxen 500 mg tablet 500 mg PO BID-TID PRN (Reason: pain) Qty: 60 2RF Rx Instructions: administer with food or milk codeine-guaifenesin 10-100 mg/5 mL liquid 5 ml PO Q6H PRN (Reason: cough) Qty: 120 0RF prednisone 10 mg tablet See Rx Instructions PO QDAY Qty: 30 0RF Rx Instructions: 4 tabs for 3 days, then 3 tabs for 3 days, then 2 tabs for 3 days, then 1 tab for 3 days PO QDAY; administer with food or milk benzonatate [Tessalon Perles] 100 mg capsule 100 mg PO TID PRN (Reason: cough) Qty: 30 0RF cholecalciferol (vitamin D3) 1,250 mcg (50,000 unit) capsule See Rx Instructions .ROUTE .COMPLEX Qty: 12 1RF Dose Instruction: TAKE 1 CAPSULE BY MOUTH EVERY WEEK Rx Instructions: TAKE 1 CAPSULE BY MOUTH EVERY WEEK epinephrine 0.3 mg/0.3 mL auto-injector 0.3 ml IM ONCE PRN (Reason: anaphylaxis) Qty: 1 0RF Breo Ellipta 200-25 mcg/dose blister with device 1 inh INHALATION DAILY Qty: 90 3RF albuterol sulfate 0.63 mg/3 mL solution for nebulization 0.63 mg INHALATION Q4H PRN (Reason: shortness of breath or wheezing) Qty: 90 2RF albuterol sulfate 90 mcg/actuation HFA aerosol inhaler 2 puff inhalation Q6H PRN (Reason: shortness of breath or wheezing) Qty: 8.5 1RF Rx Instructions: INHALE 2 PUFFS EVERY 6 HOURS NEEDED FOR SHORTNESS OF BREATH OR WHEEZING Stand Alone Forms: ED Work / School Excuse Primary Care Provider: Kush Briones Referrals: Melonie Newman MD [STAFF PHYSICIAN] - Disposition Disposition: Home, Self Care Discharge Date/Time: 08/23/21 21:07
[2021-08-23] MEDS: 0.9% Normal Saline 1,000 ML 1000 ML IV (18:29)
[2021-08-23 18:32] LABS: Absolute Neutrophil Count 5.3 X10^3/uL (2.0-7.7); Basophil# 0.05 X10^3/uL; Basophil% 0.5 % (0-1); Eosinophil# 0.63 X10^3/uL; Eosinophils% 6.6 % (0-5); Hematocrit 41.4 % (37-47); Hemoglobin 13.6 g/dL (12.0-15.0); Lymphocyte % 29.2 % (19-41); Mean Corp Hgb Conc 32.9 g/dL (32-36); Mean Corpuscular Hgb 28.2 pg (27.0-32.0); Mean Corpuscular Volume 85.9 fL (81-99); Mean Platelet Vol. 9.7 fl (6.2-12.0); Monocyte# 0.73 X10^3/uL; Monocyte% 7.6 % (0-10); NRBC Flagged by Analyzer 0 % (0-5); Neutrophil # 5.33 X10^3/uL (2.7-7.7); Neutrophil % 55.6 % (47-70); Platelet Count 517 K/mm3 (150-450); RBC Distribution Width CV 12.8 % (11.6-14.6); RBC Distribution Width SD 39.6 fl (35.1-43.9); Red Blood Count 4.82 M/mm3 (4.2-5.4); White Blood Count 9.6 K/mm3 (4.4-11.0)
[2021-08-23 18:32] LABS: Mucous, Urine 0 SEEN /hpf (<or=2+); Red Blood Cells-Urine 0 SEEN /hpf (0-5)
[2021-08-23 18:53] LABS: ALB/GLOB Ratio 0.8 RATIO (0.9-2.4); AST(SGOT) 14 U/L (15-37); Alanine Aminotransfer ALT/SGPT 15 U/L (13-56); Albumin, Serum 3.4 g/dL (3.2-5.0); Alkaline Phosphatase 66 U/L (45-117); Anion Gap 5 (5-15); BUN 13 mg/dL (7-18); BUN/Creat Ratio 18.9 RATIO (10-20); Calcium,Total 9.2 mg/dL (8.5-10.1); Chloride 106 mmol/L (98-107); Creatinine, Serum 0.69 mg/dL (0.55-1.02); EST Glomerular Filtration Rate 105 mL/min (>60); Est Glom Filt Rate - Afr Amer 127 mL/min (>60); Estimated Creatinine Clearance 92.58 ml/min; Glucose 99 mg/dL (74-106); Protein, Total 7.4 g/dL (6.4-8.2); Sodium Level 138 mmol/L (136-145)
[2021-08-23 19:15] LABS: Color, Urine Straw (Yellow); Glucose, Dipstick Normal (Normal); Ketone-Dipstick Negative (Negative); Leukocyte Esterase-Dipstick 25 /ul (Negative); Nitrite-Dipstick Negative (Negative); Occult Blood-Urine Negative /ul (Negative); Protein-Dipstick Negative (Negative); Specific Gravity, Urine 1.005 (1.002-1.030); Urine Bilirubin Dipstick Negative (Negative); Urine Clarity Clear (Clear); Urine Urobilinogen Normal (Normal)
[2021-08-23 19:19] LABS: Internal QC Validated? YES +Cl - CLEAR BKGD; Pregnancy, Serum, hCG Quali. NEGATIVE Negative
[2021-08-23 19:34] LABS: Bacteria 3+ /hpf (None Seen); Squamous Epithelial Cells - UA 5-10 SEEN /hpf (5-10); White Blood Cells 0-5 SEEN /hpf (0-5)
[2021-08-23 19:49] VITALS: RESP 16
[2021-08-23 21:00] VITALS: RESP 18
[2021-08-23 21:06] VITALS: RESP 18
== END 2021-08-23 21:07 | disposition home or self-care (01) ==
PROVIDERS: Emergency Provider Student in an Organized Health Care Education/Training Program; PCP Family Medicine; Visit Provider Student in an Organized Health Care Education/Training Program
DX: K80.20 Calculus of gallbladder without cholecystitis without obstruction (principal); K59.00 Constipation, unspecified; R19.7 Diarrhea, unspecified; J45.909 Unspecified asthma, uncomplicated; E66.9 Obesity, unspecified; Z79.899 Other long term (current) drug therapy
CPT/HCPCS: 74177; 80053; 81001; 84703; 85025; 96360; 99283; J7030; Q9967; A4216

== ENCOUNTER 2022-02-03 17:51 | Emergency (ER) | payer BC, SELFPAY ==
[2022-02-03 17:52] VITALS: BP 138/78; PULSE 78; RESP 16; TEMP 36.6; O2SAT 99; BMI 46.7
[2022-02-03 18:27] LABS: Mucous, Urine 0 SEEN /hpf (<or=2+); Red Blood Cells-Urine 0 SEEN /hpf (0-5); White Blood Cells 0 SEEN /hpf (0-5)
[2022-02-03 18:28] LABS: Color, Urine Yellow (Yellow); Glucose, Dipstick Normal (Normal); Ketone-Dipstick Negative (Negative); Leukocyte Esterase-Dipstick 25 /ul (Negative); Nitrite-Dipstick Negative (Negative); Occult Blood-Urine 10 /ul (Negative); Protein-Dipstick Negative (Negative); Urine Bilirubin Dipstick Negative (Negative); Urine Clarity Clear (Clear); Urine Urobilinogen Normal (Normal); Urine pH 6.5 (5.0 - 8.0)
[2022-02-03 18:43] LABS: Bacteria 1+ /hpf (None Seen); Squamous Epithelial Cells - UA 0-5 SEEN /hpf (5-10)
[2022-02-03 20:45] LABS: Absolute Lymphocyte Count 2.52 X10^3/uL (0.83-4.51); Absolute Neutrophil Count 7.4 X10^3/uL (2.0-7.7); Basophil# 0.04 X10^3/uL; Basophil% 0.4 % (0-1); Eosinophil# 0.27 X10^3/uL; Eosinophils% 2.4 % (0-5); Hematocrit 39.6 % (37-47); Hemoglobin 12.8 g/dL (12.0-15.0); Lymphocyte # 2.52 X10^3/ul (0.83-4.51); Lymphocyte % 22.4 % (19-41); Mean Corp Hgb Conc 32.3 g/dL (32-36); Mean Corpuscular Hgb 27.9 pg (27.0-32.0); Mean Corpuscular Volume 86.5 fL (81-99); Mean Platelet Vol. 9.5 fl (6.2-12.0); Monocyte# 0.92 X10^3/uL; Monocyte% 8.2 % (0-10); NRBC Flagged by Analyzer 0 % (0-5); Neutrophil # 7.43 X10^3/uL (2.7-7.7); Neutrophil % 66.2 % (47-70); Platelet Count 459 K/mm3 (150-450); RBC Distribution Width CV 13.6 % (11.6-14.6); Red Blood Count 4.58 M/mm3 (4.2-5.4); White Blood Count 11.2 K/mm3 (4.4-11.0)
[2022-02-03 20:56] LABS: Internal QC Validated? YES +Cl - CLEAR BKGD; Pregnancy, Serum, hCG Quali. NEGATIVE Negative
[2022-02-03 21:00] LABS: Anion Gap 5 (5-15); BUN 15 mg/dL (7-18); BUN/Creat Ratio 24.6 RATIO (10-20); Calcium,Total 8.9 mg/dL (8.5-10.1); Chloride 107 mmol/L (98-107); Creatinine, Serum 0.61 mg/dL (0.55-1.02); EST Glomerular Filtration Rate 120 mL/min (>60); Est Glom Filt Rate - Afr Amer 146 mL/min (>60); Estimated Creatinine Clearance 104.72 ml/min; Glucose 90 mg/dL (74-106); Potassium 3.7 mmol/L (3.5-5.1); Sodium Level 138 mmol/L (136-145)
--- NOTE | 2022-02-03 22:04 | US_ITS ---
EXAM: US Abdomen RUQ (limited) HISTORY: Right upper quadrant pain TECHNIQUE: Right upper quadrant. COMPARISON: None. LIMITATIONS: None. FINDINGS: LIVER: Length of 17.3 cm. Mildly increased echogenicity. Main portal vein patent. GALLBLADDER Size: Distended. Stones: None. Wall thickness: Not thickened. 1 mm. Pericholecystic fluid: None. Sonographic Rojas sign: Negative. EXTRAHEPATIC BILE DUCTS: Common bile duct 4 mm not dilated. PANCREAS: Unremarkable. RIGHT KIDNEY: No hydronephrosis. ASCITES: None. US/Gallbladder IMPRESSION: Unremarkable study. Electronically Signed: Felicita Reyes MD at 23:19 EST ,
--- NOTE | 2022-02-03 22:16 | EX.ED.DYSGE1 ---
HPI History of Present Illness Chief Complaint: Abd Pain Informant: patient and parent Narrative Narrative: Patient presents with right upper quadrant pain that started after eating dumplings yesterday. She states it started slowly but then got more sharp and painful relatively quickly. It has never gone away but it does wax and wane to some degree. All the pain has been in the right upper quadrant continuously. It does not radiate anywhere else. She actually denies nausea or vomiting. She states that she has moved her bowels about 3 times but states they were normal. They were not watery or bloody. She has no prior abdominal surgery. No known history of gallbladder problems in her the family. No syncope or lightheadedness. No urinary symptoms. Past medical history includes asthma. Medications are inhalers as needed. 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 No prior surgeries No significant alcohol PFSH PFSH Allergy/AdvReac Type Severity Reaction Status Date / Time Fish Containing Products Allergy Anaphylaxis Verified 02/03/22 17:52 [seafood] iodine Allergy Anaphylaxis Verified 02/03/22 17:52 ROS ROS ED Constitutional Constitutional ED: Denies chills or fever(s) ENT ENT ED: Denies rhinorrhea or sore throat Cardiovascular Cardiovascular: Denies chest pain or palpitations Respiratory/Chest Respiratory/Chest: Denies cough or dyspnea Gastrointestinal Gastrointestinal: Reports abdominal pain; Denies constipation, diarrhea, melena, nausea or vomiting Genitourinary Genitourinary ED: Denies dysuria or hematuria Musculoskeletal Musculoskeletal: Denies back pain Integumentary Denies rash Neurologic Neurologic: Denies paresthesias or weakness Endocrine Endocrinology: Denies polydipsia or polyuria Hematologic/Lymphatic Hematologic/Lymphatic: Denies easy bleeding or easy bruising Allergic/Immunologic Allergic/Immunologic ED: Denies urticaria EXAM Physical Exam Const Vital Signs: 02/03/22 17:52 Temperature 97.8 F Temperature Source Temporal Pulse Rate 78 Respiratory Rate 16 Blood Pressure 138/78 H Blood Pressure Mean 98 Pulse Ox 99 Oxygen Delivery Method Room Air Positive well nourished and well developed General Appearance ED: well developed HEENT Reports moist mucous membranes Eyes PERRL General Eye ED: Negative for scleral icterus Neck supple Chest Wall inspection of chest normal Chest Narrative: No tender's on the chest wall or pain with a deep breath. Resp normal respiratory effort and clear to auscultation bilaterally Auscultation: Negative for rales, rhonchi or wheezes Cardio regular rate, regular rhythm and no murmurs GI normal to inspection, nondistended, normoactive bowel sounds GI Narrative: Patient is obese but abdomen does not look to be distended. Bowel sounds are normal. She has consistent right upper quadrant tenderness. No rebound or guarding. I feel no mass. No abdominal wall defect. Back/Spine no CVA tenderness Extremity General Extremety ED: Negative for tenderness Neuro Sensorium / Orientation: alert Psych mental status grossly normal Skin no rashes or lesions noted MDM MDM MDM Narrative Medical decision making narrative: Patient's white count is a very mild nonspecific elevation at 11.2. Platelets are minimally elevated. Hemoglobin is normal. Electrolytes are normal other than mild BUN to creatinine ratio. Urine showed no sign of infection. No blood liver function tests were normal. was negative. Patient was feeling a little bit better. She still has a little tenderness toward the right upper quadrant but no rebound or guarding. She is not having nausea and vomiting. She now states that when this first started she was doing cleaning where she was climbing up and down a stool and reaching over her head and she had some pain there. There is some motion component but not much. It is certainly possible that this is musculoskeletal. In either case I think she can go home. She will follow-up with her private physician. We discussed that she may need further work-up including HIDA scan or other studies. She is having no cough dyspnea shortness of breath that would require further imaging or evaluation. No back or flank pain. No urinary symptoms. Lab Data Attestation: I reviewed the patient's lab results. Labs: Laboratory Results - last 24 hr 02/03/22 02/03/22 02/03/22 18:00 20:30 20:30 WBC 11.2 H RBC 4.58 Hgb 12.8 Hct 39.6 MCV 86.5 MCH 27.9 MCHC 32.3 RDW Std Deviation 43.0 RDW Coeff of Avinash 13.6 Plt Count 459 H MPV 9.5 Immature Gran % (Auto) 0.400 Neut % (Auto) 66.2 Lymph % (Auto) 22.4 [place] % (Auto) 8.2 Eos % (Auto) 2.4 Baso % (Auto) 0.4 Absolute Neuts (auto) 7.4 Absolute Lymphs (auto) 2.52 Nucleated RBC % 0 Sodium 138 Potassium 3.7 Chloride 107 Carbon Dioxide 26.0 Anion Gap 5 BUN 15 Creatinine 0.61 Estim Creat Clear Calc 104.72 Est GFR (MDRD) Af Amer 146 Est GFR (MDRD) Non-Af 120 BUN/Creatinine Ratio 24.6 H Glucose 90 Calcium 8.9 Total Bilirubin Direct Bilirubin AST ALT Alkaline Phosphatase Total Protein Albumin Globulin Serum , Qual Urine Color Yellow Urine Clarity Clear Urine pH 6.5 Ur Specific [place] 1.010 Urine Protein Negative Urine Glucose (UA) Normal Urine Ketones Negative Urine Occult Blood 10 H Urine Nitrite Negative Urine Bilirubin Negative Urine Urobilinogen Normal Ur Leukocyte Esterase 25 H Urine RBC 0 SEEN Urine WBC 0 SEEN Ur Squamous Epith Cells 0-5 SEEN Urine Bacteria 1+ Urine Mucus 0 SEEN 02/03/22 02/03/22 20:30 20:30 WBC RBC Hgb Hct MCV MCH MCHC RDW Std Deviation RDW Coeff of Avinash Plt Count MPV Immature Gran % (Auto) Neut % (Auto) Lymph % (Auto) [place] % (Auto) Eos % (Auto) Baso % (Auto) Absolute Neuts (auto) Absolute Lymphs (auto) Nucleated RBC % Sodium Potassium Chloride Carbon Dioxide Anion Gap BUN Creatinine Estim Creat Clear Calc Est GFR (MDRD) Af Amer Est GFR (MDRD) Non-Af BUN/Creatinine Ratio Glucose Calcium Total Bilirubin 0.60 Direct Bilirubin 0.14 AST 13 L ALT 21 Alkaline Phosphatase 51 Total Protein 7.7 Albumin 3.6 Globulin 4.1 Serum , Qual NEGATIVE Urine Color Urine Clarity Urine pH Ur Specific [place] Urine Protein Urine Glucose (UA) Urine Ketones Urine Occult Blood Urine Nitrite Urine Bilirubin Urine Urobilinogen Ur Leukocyte Esterase Urine RBC Urine WBC Ur Squamous Epith Cells Urine Bacteria Urine Mucus Radiography Diagnostic Testing: Clinical Impression(s) from Imaging Studies Gallbladder Ultrasound 02/03/22 22:04 IMPRESSION: Unremarkable study. Electronically Signed: Felicita Reyes MD at 23:19 EST , Ultrasound read by radiology is unremarkable. Discharge Plan Triage Chief Complaint: Abd Pain ED Provider: Eben Potts Dx/Rx/DC Orders Clinical Impression: Right upper quadrant abdominal pain Instructions: ED Abdominal Pain Unkn Cause Fem Stand Alone Forms: ED Work / School Excuse Primary Care Provider: Care Physician,No Primary Referrals: Care Physician,No Primary [Primary Care Provider] - Activity Restrictions/Additional Instructions: Follow-up with your family physician later this week. Disposition Disposition: Home, Self Care
[2022-02-03] MEDS: Ondansetron 4 MG/2 ML Vial IV (22:27)
[2022-02-03] MEDS: Ketorolac 15 MG/ML Vial IV (22:27)
[2022-02-03 22:39] LABS: AST(SGOT) 13 U/L (15-37); Alanine Aminotransfer ALT/SGPT 21 U/L (13-56); Albumin, Serum 3.6 g/dL (3.2-5.0); Alkaline Phosphatase 51 U/L (45-117); Bilirubin, Direct 0.14 mg/dL (0.00-0.30); Globulin 4.1 g/dL (2.2-4.2); Protein, Total 7.7 g/dL (6.4-8.2)
[2022-02-03 23:00] VITALS: BP 146/75; PULSE 86; RESP 18; O2SAT 96
[2022-02-04 00:48] VITALS: RESP 18
== END 2022-02-04 00:53 | disposition home or self-care (01) ==
PROVIDERS: Emergency Provider Emergency Medicine; Visit Provider Emergency Medicine
DX: R10.11 Right upper quadrant pain (principal); J45.909 Unspecified asthma, uncomplicated
CPT/HCPCS: 76705; 80048; 80076; 81001; 84703; 85025; 99283; J2405

== ENCOUNTER 2022-07-23 18:20 | Emergency (ER) | payer BC, MEDICAID, SELFPAY ==
[2022-07-23 18:21] VITALS: BP 126/52; PULSE 82; RESP 16; TEMP 36.4; O2SAT 98; BMI 43.6
--- NOTE | 2022-07-23 19:08 | CT_ITS ---
STUDY: CT ABDOMEN AND PELVIS WITHOUT CONTRAST REASON FOR EXAM: Female, 32 years old. RLQ pain RADIATION DOSAGE (If Supplied By Facility): CTDIvol = ( 23.08 ) mGy, DLP = ( 1135.99 ) mGycm TECHNIQUE: Transaxial images were obtained from the dome of the diaphragm to the symphysis pubis without oral contrast, and without intravenous contrast. Sagittal and coronal images were reconstructed. Individualized dose optimization techniques were used for this CT. COMPARISON: 08/23/2021 FINDINGS: The visualized lung bases are unremarkable. The visualized portions of the heart are within normal limits. Normal liver. Normal gallbladder and extrahepatic biliary system. Normal spleen. Normal pancreas. Normal bilateral adrenal glands. Normal right kidney. Normal left kidney. Normal visualized stomach. Normal small intestine. Normal colon. The appendix is visualized and appears normal. Normal abdominal aorta. Normal inferior vena cava. Normal retroperitoneum. Normal urinary bladder. Normal abdominal wall. Normal osseous structures. CT/Abdomen/Pelvis without Cont IMPRESSION: Normal unenhanced CT of the abdomen and pelvis. Electronically Signed: Froylan Gruber MD at 21:18 EDT ,
--- NOTE | 2022-07-23 19:09 | EDS_ITS ---
HPI <CAMPBELL Moore - Last Filed: 07/23/22 21:15> History of Present Illness Chief Complaint: Abd Pain Narrative Narrative: Patient presenting today with sharp and constant right lower quadrant abdominal pain that she has had since last night. She reports that it is worsening. She is nauseous but has not had any vomiting. She denies any urinary symptoms, fever, chills, blood in the stool, diarrhea. She denies any prior abdominal surgery. PFSH <CAMPBELL Moore - Last Filed: 07/23/22 21:15> [facility] Medical History (Updated 07/23/22 @ 21:[address] Lucia Troncoso MD) Asthma Home Medications benzonatate 100 mg capsule (Tessalon Perlmark) 100 mg PO TID PRN cough #30 caps 04/22/19 [Rx Last Taken Unknown] cholecalciferol (vitamin D3) 1,250 mcg (50,000 unit) capsule See Rx Instructions .Route .COMPLEX #12 caps 06/10/19 [Rx Last Taken Unknown] epinephrine 0.3 mg/0.3 mL injection, auto-injector 0.3 ml IM ONCE PRN anaphylaxis #1 ea 10/21/19 [Rx Last Taken Unknown] fluticasone furoate 200 mcg-vilanterol 25 mcg/dose inhalation powder (Breo Ellipta) 1 inh inhalation DAILY #90 ea 10/21/19 [Rx Last Taken Unknown] albuterol sulfate 0.63 mg/3 mL solution for nebulization 0.63 mg (3 mL) inhalation Q4H PRN shortness of breath or wheezing #90 mL 12/31/19 [Rx Last Taken Unknown] albuterol sulfate 90 mcg/actuation aerosol inhaler 2 puff inhalation Q6H PRN shortness of breath or wheezing #8.5 grams 07/14/20 [Rx Last Taken Unknown] atorvastatin 20 mg tablet 20 mg PO DAILY 07/23/22 [History Last Taken Unknown] semaglutide 0.25 mg or 0.5 mg (2 mg/3 mL) subcutaneous pen injector (Ozempic) 0.25 mg subcut QWEEK 07/23/22 [History Last Taken Unknown] Allergy/AdvReac Type Severity Reaction Status Date / Time Fish Containing Products Allergy Severe Anaphylaxis Verified 07/23/22 18:21 shellfish derived Allergy Severe Anaphylaxis Verified 07/23/22 18:21 azithromycin Allergy Mild Rash Verified 07/23/22 18:21 cephalexin monohydrate Allergy Rash Verified 07/23/22 18:21 [From Keflex] iodine Allergy Anaphylaxis Verified 07/23/22 18:21 latex Allergy Unknown Verified 07/23/22 18:21 Family History Other Arthritis Asthma Hyperlipemia Osteoporosis Thyroid disorder Surgical History History of tonsillectomy Social History Smoking Status: Never smoker alcohol intake: never substance use type: does not use caffeine: Yes what type of physical activity do you participate in: none and walking seatbelt use: always do you feel safe at home: Yes additional social history: Single-works at [employer] <CAMPBELL Moore - Last Filed: 07/23/22 21:15> ROS ED Constitutional Constitutional ED: Denies chills or fever(s) Cardiovascular Cardiovascular: Denies chest pain Respiratory/Chest Respiratory/Chest: Denies cough or dyspnea Gastrointestinal Gastrointestinal: Reports abdominal pain and nausea; Denies constipation, diarrhea, melena or vomiting Genitourinary Genitourinary ED: Denies dysuria, hematuria or urinary urgency Musculoskeletal Musculoskeletal: Denies arthralgias or myalgias Integumentary Denies rash Neurologic Neurologic: Denies weakness EXAM <CAMPBELL Moore - Last Filed: 07/23/22 21:15> Physical Exam Const Vital Signs: 07/23/22 18:21 Temperature 97.6 F L Temperature Source Temporal Pulse Rate 82 Respiratory Rate 16 Blood Pressure 126/52 H Blood Pressure Mean 76 Pulse Ox 98 Oxygen Delivery Method Room Air Positive well nourished, well developed and no apparent distress General Appearance ED: well developed HEENT Reports normocephalic and head/scalp atraumatic Mouth ED: Yes moist mucous membranes normal Eyes PERRL and EOMs intact bilaterally Neck full ROM and supple Chest Wall inspection of chest normal Resp normal respiratory effort and clear to auscultation bilaterally Cardio regular rate and regular rhythm GI soft to palpation, non-distended and no masses GI Narrative: McBurney's point tenderness to palpation, no guarding or rigidity. Back/Spine normal ROM and normal to inspection Extremity normal to inspection and full ROM Neuro oriented x3, CN's II-XII intact bilaterally, moves all extremities, no focal motor deficits and no sensory deficits noted Sensorium / Orientation: awake and alert Psych mental status grossly normal and thought process normal Skin no rashes or lesions noted and no wounds <Dr. Lucia Troncoso MD - Last Filed: 07/23/22 21:49> Physical Exam Const Vital Signs: 07/23/22 18:21 Temperature 97.6 F L Temperature Source Temporal Pulse Rate 82 Respiratory Rate 16 Blood Pressure 126/52 H Blood Pressure Mean 76 Pulse Ox 98 Oxygen Delivery Method Room Air MDM <CAMPBELL Moore - Last Filed: 07/23/22 21:15> [facility] Narrative Medical decision making narrative: Patient presenting with right lower quadrant abdominal pain that started last night, it is constant and a sharp pressure. No prior abdominal surgery. Nausea without any vomiting. She does have tenderness palpation to McBurney's point. Differentials include appendicitis, ovarian cyst rupture/torsion, diverticulitis, kidney stone. Labs to be obtained rule out leukocytosis, anemia, troponin abnormality, hepatobiliary etiology. UA obtained to rule out UTI. CT of the abdomen/ pelvis obtained. She has been given IV Zofran and Toradol. UA does look contaminated. CT is pending. Lab Data Attestation: I reviewed the patient's lab results. Labs: Laboratory Results - last 24 hr 07/23/22 07/23/22 07/23/22 19:28 19:28 19:47 WBC 10.7 RBC 5.31 Hgb 15.1 H Hct 47.8 H MCV 90.0 MCH 28.4 MCHC 31.6 L RDW Std Deviation 44.4 H RDW Coeff of Avinash 13.5 Plt Count 380 MPV 10.4 Immature Gran % (Auto) 0.400 Neut % (Auto) 56.0 Lymph % (Auto) 26.5 [place] % (Auto) 8.0 Eos % (Auto) 8.3 H Baso % (Auto) 0.8 Absolute Neuts (auto) 6.0 Absolute Lymphs (auto) 2.83 Nucleated RBC % 0 Sodium 138 Potassium 4.0 Chloride 108 H Carbon Dioxide 21.0 Anion Gap 9 BUN 12 Creatinine 0.66 Estim Creat Clear Calc 95.89 Est GFR (MDRD) Af Amer 133 Est GFR (MDRD) Non-Af 110 BUN/Creatinine Ratio 18.2 Glucose 81 Calcium 9.4 Total Bilirubin 0.40 AST 19 ALT 15 Alkaline Phosphatase 56 Total Protein 7.7 Albumin 3.7 Globulin 4.0 Albumin/Globulin Ratio 0.9 Urine Color Yellow Urine Clarity Cloudy Urine pH 7.0 Ur Specific [place] 1.010 Urine Protein 15 H Urine Glucose (UA) Normal Urine Ketones 5 H Urine Occult Blood Negative Urine Nitrite Negative Urine Bilirubin Negative Urine Urobilinogen Normal Ur Leukocyte Esterase 100 H Urine RBC 0-5 SEEN Urine WBC 0-5 SEEN Ur Squamous Epith Cells 5-10 SEEN Urine Bacteria 2+ Urine Mucus 0 SEEN Urine Yeast 5-10 SEEN Urine Test Negative Radiography Diagnostic Testing: Clinical Impression(s) from Imaging Studies Abdomen/Pelvis CT 07/23/22 19:08 IMPRESSION: Normal unenhanced CT of the abdomen and pelvis. Electronically Signed: Froylan Gruber MD at 21:18 EDT , <Dr. Lucia Troncoso MD - Last Filed: 07/23/22 21:49> [facility] Lab Data Labs: Laboratory Results - last 24 hr 07/23/22 07/23/22 07/23/22 19:28 19:28 19:47 WBC 10.7 RBC 5.31 Hgb 15.1 H Hct 47.8 H MCV 90.0 MCH 28.4 MCHC 31.6 L RDW Std Deviation 44.4 H RDW Coeff of Avinash 13.5 Plt Count 380 MPV 10.4 Immature Gran % (Auto) 0.400 Neut % (Auto) 56.0 Lymph % (Auto) 26.5 [place] % (Auto) 8.0 Eos % (Auto) 8.3 H Baso % (Auto) 0.8 Absolute Neuts (auto) 6.0 Absolute Lymphs (auto) 2.83 Nucleated RBC % 0 Sodium 138 Potassium 4.0 Chloride 108 H Carbon Dioxide 21.0 Anion Gap 9 BUN 12 Creatinine 0.66 Estim Creat Clear Calc 95.89 Est GFR (MDRD) Af Amer 133 Est GFR (MDRD) Non-Af 110 BUN/Creatinine Ratio 18.2 Glucose 81 Calcium 9.4 Total Bilirubin 0.40 AST 19 ALT 15 Alkaline Phosphatase 56 Total Protein 7.7 Albumin 3.7 Globulin 4.0 Albumin/Globulin Ratio 0.9 Urine Color Yellow Urine Clarity Cloudy Urine pH 7.0 Ur Specific [place] 1.010 Urine Protein 15 H Urine Glucose (UA) Normal Urine Ketones 5 H Urine Occult Blood Negative Urine Nitrite Negative Urine Bilirubin Negative Urine Urobilinogen Normal Ur Leukocyte Esterase 100 H Urine RBC 0-5 SEEN Urine WBC 0-5 SEEN Ur Squamous Epith Cells 5-10 SEEN Urine Bacteria 2+ Urine Mucus 0 SEEN Urine Yeast 5-10 SEEN Urine Test Negative Radiography Diagnostic Testing: Clinical Impression(s) from Imaging Studies Abdomen/Pelvis CT 07/23/22 19:08 IMPRESSION: Normal unenhanced CT of the abdomen and pelvis. Electronically Signed: Froylan Gruber MD at 21:18 EDT , Treatment and Re-Evaluation :: Patient seen and evaluated with BRAD. I personally interviewed and examined the patient. I was involved in all aspects of patient's orders, interpretation of results, and treatment. Patient presents with right lower quadrant abdominal pain that started yesterday. No vomiting or diarrhea. She does report some chills. No history of ovarian cyst. No prior abdominal surgeries. Patient sitting upright in bed no acute distress. Nontoxic-appearing. Head and neck examination unremarkable. Heart is regular rate and rhythm. Lung sounds are clear. Abdomen is soft with tenderness in the right lower quadrant. No guarding or rebound. Lab work obtained and reveals normal white count and hemoglobin level. Chemistry studies reveal normal renal function. LFTs are unremarkable. Urine test is negative. Urinalysis does reveal 5-10 yeast. 2+ bacteria are noted, however patient has epithelial cells with 0-5 white cells and no nitrites. CT scan of the abdomen and pelvis is obtained to evaluate for appendicitis versus kidney stone versus ovarian cyst. CT scan is unremarkable with a normal visualized appendix. On review of imaging I did note increased stool in the right lower quadrant. Patient has MiraLAX at home and is instructed to take this at least once a day every day, and 2 or 3 times a day when she is feeling backed up. She is given a single dose of Diflucan here given her yeast findings in the urine. She is to follow with her primary care physician. Return instructions given. Discharge Plan Triage Chief Complaint: Abd Pain ED Midlevel Provider: Iris Fuentes ED Provider: Lucia Troncoso Dx/Rx/DC Orders Clinical Impression: Abdominal pain Instructions: ED Abdominal Pain Unkn Cause Fem Prescriptions: No Action benzonatate [Tessalon Perles] 100 mg capsule 100 mg PO TID PRN (Reason: cough) Qty: 30 0RF atorvastatin 20 mg tablet 20 mg PO DAILY Label Comments: TAKE 1 TABLET BY MOUTH DAILY AT BEDTIME. FOR CHOLESTEROL Ozempic 0.25 mg or 0.5 mg (2 mg/3 mL) pen injector 0.25 mg SUBCUT QWEEK Label Comments: inject 0.25 mg SUBCUTANEOUSLY one time per week cholecalciferol (vitamin D3) 1,250 mcg (50,000 unit) capsule See Rx Instructions .ROUTE .COMPLEX Qty: 12 1RF Dose Instruction: TAKE 1 CAPSULE BY MOUTH EVERY WEEK Rx Instructions: TAKE 1 CAPSULE BY MOUTH EVERY WEEK epinephrine 0.3 mg/0.3 mL auto-injector 0.3 ml IM ONCE PRN (Reason: anaphylaxis) Qty: 1 0RF Breo Ellipta 200-25 mcg/dose blister with device 1 inh INHALATION DAILY Qty: 90 3RF albuterol sulfate 0.63 mg/3 mL solution for nebulization 0.63 mg INHALATION Q4H PRN (Reason: shortness of breath or wheezing) Qty: 90 2RF albuterol sulfate 90 mcg/actuation HFA aerosol inhaler 2 puff inhalation Q6H PRN (Reason: shortness of breath or wheezing) Qty: 8.5 1RF Rx Instructions: INHALE 2 PUFFS EVERY 6 HOURS NEEDED FOR SHORTNESS OF BREATH OR WHEEZING Primary Care Provider: Kush Briones Referrals: Kush Briones MD [Primary Care Provider] - 1 Week if not improving Disposition Disposition: Home, Self Care
[2022-07-23] MEDS: Ondansetron 4 MG/2 ML Vial IV (19:26)
[2022-07-23] MEDS: Ketorolac 15 MG/ML Vial IV (19:26)
[2022-07-23 19:35] LABS: Absolute Lymphocyte Count 2.83 X10^3/uL (0.83-4.51); Basophil# 0.08 X10^3/uL; Basophil% 0.8 % (0-1); Eosinophil# 0.88 X10^3/uL; Eosinophils% 8.3 % (0-5); Hematocrit 47.8 % (37-47); Hemoglobin 15.1 g/dL (12.0-15.0); Lymphocyte # 2.83 X10^3/ul (0.83-4.51); Lymphocyte % 26.5 % (19-41); Mean Corp Hgb Conc 31.6 g/dL (32-36); Mean Corpuscular Hgb 28.4 pg (27.0-32.0); Mean Platelet Vol. 10.4 fl (6.2-12.0); Monocyte# 0.85 X10^3/uL; NRBC Flagged by Analyzer 0 % (0-5); Neutrophil # 5.98 X10^3/uL (2.7-7.7); Platelet Count 380 K/mm3 (150-450); RBC Distribution Width CV 13.5 % (11.6-14.6); RBC Distribution Width SD 44.4 fl (35.1-43.9); Red Blood Count 5.31 M/mm3 (4.2-5.4); White Blood Count 10.7 K/mm3 (4.4-11.0)
[2022-07-23 19:56] LABS: ALB/GLOB Ratio 0.9 RATIO (0.9-2.4); AST(SGOT) 19 U/L (15-37); Alanine Aminotransfer ALT/SGPT 15 U/L (13-56); Albumin, Serum 3.7 g/dL (3.2-5.0); Alkaline Phosphatase 56 U/L (45-117); Anion Gap 9 (5-15); BUN 12 mg/dL (7-18); BUN/Creat Ratio 18.2 RATIO (10-20); Calcium,Total 9.4 mg/dL (8.5-10.1); Chloride 108 mmol/L (98-107); Creatinine, Serum 0.66 mg/dL (0.55-1.02); EST Glomerular Filtration Rate 110 mL/min (>60); Est Glom Filt Rate - Afr Amer 133 mL/min (>60); Estimated Creatinine Clearance 95.89 ml/min; Glucose 81 mg/dL (74-106); Protein, Total 7.7 g/dL (6.4-8.2); Sodium Level 138 mmol/L (136-145)
[2022-07-23 19:57] LABS: Mucous, Urine 0 SEEN /hpf (<or=2+)
[2022-07-23 20:03] LABS: Color, Urine Yellow (Yellow); Glucose, Dipstick Normal (Normal); Ketone-Dipstick 5 mg/dl (Negative); Leukocyte Esterase-Dipstick 100 /ul (Negative); Nitrite-Dipstick Negative (Negative); Occult Blood-Urine Negative /ul (Negative); Protein-Dipstick 15 mg/dl (Negative); Urine Bilirubin Dipstick Negative (Negative); Urine Clarity Cloudy (Clear); Urine Urobilinogen Normal (Normal)
[2022-07-23 20:11] LABS: Internal QC Validated? YES +Cl - CLEAR BKGD; Pregnancy, Urine Negative Negative
[2022-07-23 20:48] LABS: Bacteria 2+ /hpf (None Seen); Red Blood Cells-Urine 0-5 SEEN /hpf (0-5); Squamous Epithelial Cells - UA 5-10 SEEN /hpf (5-10); White Blood Cells 0-5 SEEN /hpf (0-5); Yeast-Urine 5-10 SEEN /hpf (None Seen)
[2022-07-23] MEDS: Fluconazole 100 MG Tablet 200 MG PO (21:57)
[2022-07-23 21:58] VITALS: BP 128/75; PULSE 67; RESP 16; O2SAT 97
== END 2022-07-23 22:02 | disposition home or self-care (01) ==
PROVIDERS: Physician Assistant; Emergency Provider Emergency Medicine; PCP Family Medicine; Visit Provider Emergency Medicine
DX: R10.9 Unspecified abdominal pain (principal); R11.0 Nausea; J45.909 Unspecified asthma, uncomplicated; Z79.899 Other long term (current) drug therapy; Z79.51 Long term (current) use of inhaled steroids
CPT/HCPCS: 74176; 80053; 81001; 81025; 85025; 96374; 96375; 99283; A4216; J2405

== ENCOUNTER 2022-12-09 20:56 | Emergency (ER) | payer BC, SELFPAY ==
[2022-12-09 20:58] VITALS: BP 112/70; PULSE 78; RESP 16; TEMP 36.4; O2SAT 100; BMI 39.4
[2022-12-09 21:01] VITALS: BP 112/70; PULSE 78; RESP 16; TEMP 36.4; O2SAT 100
--- NOTE | 2022-12-09 21:14 | ED.VIS.DYS ---
HPI History of Present Illness Chief Complaint: Asthma Detail of Chief Complaint: Cough and mild shortness of breath Informant: patient Narrative Narrative: Patient presents with cough and some mild shortness of breath. She had a cough for 3 days. She denies fever. Cough nonproductive. Her mother works with children that have RSV. Patient denies chest pain. Patient has history of asthma and has been using her inhaler which does help somewhat. No recent travel or surgery. [facility] Medical History (Updated 12/09/22 @ 21:[address] Jorge Mehta, ) Asthma Home Medications cholecalciferol (vitamin D3) 1,250 mcg (50,000 unit) capsule See Rx Instructions .Route .COMPLEX #12 caps 06/10/19 [Rx Last Taken Unknown] epinephrine 0.3 mg/0.3 mL injection, auto-injector 0.3 ml IM ONCE PRN anaphylaxis #1 ea 10/21/19 [Rx Last Taken Unknown] fluticasone furoate 200 mcg-vilanterol 25 mcg/dose inhalation powder (Breo Ellipta) 1 inh inhalation DAILY #90 ea 10/21/19 [Rx Last Taken Unknown] albuterol sulfate 0.63 mg/3 mL solution for nebulization 0.63 mg (3 mL) inhalation Q4H PRN shortness of breath or wheezing #90 mL 12/31/19 [Rx Last Taken Unknown] albuterol sulfate 90 mcg/actuation aerosol inhaler 2 puff inhalation Q6H PRN shortness of breath or wheezing #8.5 grams 07/14/20 [Rx Last Taken Unknown] atorvastatin 20 mg tablet 20 mg PO DAILY 07/23/22 [History Last Taken Unknown] semaglutide 0.25 mg or 0.5 mg (2 mg/3 mL) subcutaneous pen injector (Ozempic) 0.25 mg subcut QWEEK 07/23/22 [History Last Taken Unknown] prednisone 20 mg tablet 20 mg PO BID #10 tabs 12/09/22 [Rx Last Taken Unknown] Allergy/AdvReac Type Severity Reaction Status Date / Time Fish Containing Products Allergy Severe Anaphylaxis Verified 08/21/22 06:49 shellfish derived Allergy Severe Anaphylaxis Verified 08/21/22 06:49 azithromycin Allergy Mild Rash Verified 08/21/22 06:49 cephalexin monohydrate Allergy Rash Verified 08/21/22 06:49 [From Keflex] iodine Allergy Anaphylaxis Verified 08/21/22 06:49 latex Allergy Unknown Verified 08/21/22 06:49 Family History Other Arthritis Asthma Hyperlipemia Osteoporosis Thyroid disorder Surgical History History of tonsillectomy Social History Smoking Status: Never smoker alcohol intake: never substance use type: does not use caffeine: Yes what type of physical activity do you participate in: none and walking seatbelt use: always do you feel safe at home: Yes additional social history: Single-works at [employer] ROS ROS ED Review of Systems ROS Unobtainable: other Constitutional Constitutional ED: Reports lethargy; Denies chills, fever(s), sweats or weight loss Eyes Eyes: Denies blurry vision, change in vision or diplopia ENT ENT ED: Denies rhinorrhea or sore throat Cardiovascular Cardiovascular: Denies chest pain, orthopnea or racing heartbeat Respiratory/Chest Respiratory/Chest: Reports cough and dyspnea; Denies dyspnea on exertion, orthopnea or sputum Gastrointestinal Gastrointestinal: Denies abdominal pain, diarrhea, nausea or vomiting Genitourinary Genitourinary ED: Denies dysuria, hematuria or urinary frequency Musculoskeletal Musculoskeletal: Denies arthralgias, back pain, myalgias or neck pain Integumentary Denies abscess, Abrasions or rash Neurologic Neurologic: Denies headache(s) or weakness Psychiatric Psychiatric: Denies anxiety, depression or suicidal thoughts Endocrine Endocrinology: Denies polydipsia, polyphagia or polyuria Hematologic/Lymphatic Hematologic/Lymphatic: Denies easy bleeding, easy bruising or lymphadenopathy Allergic/Immunologic Allergic/Immunologic ED: Denies mouth swelling, tongue swelling or urticaria EXAM Physical Exam Const Vital Signs: 12/09/22 20:58 12/09/22 21:01 12/09/22 21:08 Temperature 97.6 F L 97.6 F L Temperature Source Temporal Temporal Pulse Rate 78 78 Respiratory Rate 16 16 Respiratory Effort Short of Breath Labored Blood Pressure 112/70 112/70 Blood Pressure Mean 84 84 Pulse Ox 100 100 Positive well nourished and well developed General Appearance ED: well developed and NAD HEENT Reports TM's clear and moist mucous membranes normocephalic and atraumatic; Negative for trauma or tenderness Tympanic Membrane ED: Yes TM's clear Eyes PERRL and EOMs intact bilaterally General Eye ED: Negative for pale conjunctiva or scleral icterus Neck no lymphadenopathy, supple and no JVD General: Negative for tenderness Chest Wall inspection of chest normal and palpation of chest normal Chest: Negative for tenderness Resp normal respiratory effort Resp Narrative: Faint mild expiratory wheezes bilaterally. No tachypnea. No accessory muscle use or retractions. No conversational dyspnea. Effort and Inspection: Negative for respiratory distress or pain with movement Auscultation: wheezes; Negative for rhonchi or diminished lung sounds Cardio regular rate, regular rhythm, S1 normal heart sound, S2 normal heart sound and no murmurs Peripheral Pulses: pulses 2+ throughout GI normal to inspection, nondistended, normoactive bowel sounds, soft to palpation, non-tender, non-distended and no masses Back/Spine no CVA tenderness and no thoracic nor lumbar tenderness Extremity normal to inspection General Extremety ED: Negative for edema General Extremity: Negative for edema Neuro oriented x3, CN's II-XII intact bilaterally, no sensory deficits noted and gait normal Sensorium / Orientation: awake, alert, oriented to person, oriented to place and oriented to time Motor Exam: strength 5/5 throughout and strength abnormal Psych mental status grossly normal Skin no rashes or lesions noted and no wounds MDM MDM MDM Narrative Medical decision making narrative: Patient presents with 3-day history of cough and history of asthma. Clinically she looks well. I do not feel imaging is indicated. I did offer testing for COVID or influenza however she states that she has had both vaccines and does not want to have the testing. Clinically I do not feel this changes treatment. Suspect likely of viral asthmatic bronchitis. We will give a DuoNeb aerosol and will dispense an albuterol MDI for home. Will start on prednisone. Advised to follow-up with primary care physician within next 3 to 5 days. Advised to return if increasing shortness of breath or condition should worsen anyway. Discharge Plan Triage Chief Complaint: Asthma ED Provider: Jorge Mehta Dx/Rx/DC Orders Clinical Impression: Bronchitis, asthmatic Instructions: ED Bronchitis with Wheezing (Adult), ED Inhaler Use Prescriptions: New prednisone 20 mg tablet 20 mg PO BID Qty: 10 0RF No Action atorvastatin 20 mg tablet 20 mg PO DAILY Patient Comments: TAKE 1 TABLET BY MOUTH DAILY AT BEDTIME. FOR CHOLESTEROL Ozempic 0.25 mg or 0.5 mg (2 mg/3 mL) pen injector 0.25 mg SUBCUT QWEEK Patient Comments: inject 0.25 mg SUBCUTANEOUSLY one time per week cholecalciferol (vitamin D3) 1,250 mcg (50,000 unit) capsule See Rx Instructions .ROUTE .COMPLEX Qty: 12 1RF Dose Instruction: TAKE 1 CAPSULE BY MOUTH EVERY WEEK Rx Instructions: TAKE 1 CAPSULE BY MOUTH EVERY WEEK epinephrine 0.3 mg/0.3 mL auto-injector 0.3 ml IM ONCE PRN (Reason: anaphylaxis) Qty: 1 0RF Breo Ellipta 200-25 mcg/dose blister with device 1 inh INHALATION DAILY Qty: 90 3RF albuterol sulfate 0.63 mg/3 mL solution for nebulization 0.63 mg INHALATION Q4H PRN (Reason: shortness of breath or wheezing) Qty: 90 2RF albuterol sulfate 90 mcg/actuation HFA aerosol inhaler 2 puff inhalation Q6H PRN (Reason: shortness of breath or wheezing) Qty: 8.5 1RF Rx Instructions: INHALE 2 PUFFS EVERY 6 HOURS NEEDED FOR SHORTNESS OF BREATH OR WHEEZING Primary Care Provider: Kush Briones Referrals: Kush Briones MD [Primary Care Provider] - 3-5 Days
[2022-12-09] MEDS: Albuterol Sulfate 8 gm Inhaler (60 puffs) 2 PUFF INHALATION (21:20)
[2022-12-09] MEDS: Ipratropium/Albuterol Sulfate 3 ML AMPUL.NEB INHALATION (21:20)
[2022-12-09 21:23] VITALS: PULSE 80; RESP 18
[2022-12-09] MEDS: predniSONE 20 MG Tablet 40 MG PO (21:39)
== END 2022-12-09 21:44 | disposition home or self-care (01) ==
LOC: ED 21:16
PROVIDERS: Emergency Provider Emergency Medicine; PCP Family Medicine; Visit Provider Emergency Medicine
DX: J45.909 Unspecified asthma, uncomplicated (principal); Z79.51 Long term (current) use of inhaled steroids
CPT/HCPCS: 94640; 99282

== ENCOUNTER 2023-04-10 17:04 | Emergency (ER) | payer BC, SELFPAY ==
[2023-04-10 17:06] VITALS: BP 113/76; PULSE 75; RESP 18; TEMP 36.3; O2SAT 100; BMI 41.9
[2023-04-10 17:56] LABS: Absolute Lymphocyte Count 2.82 X10^3/uL (0.83-4.51); Absolute Neutrophil Count 6.5 X10^3/uL (2.0-7.7); Basophil# 0.06 X10^3/uL; Basophil% 0.5 % (0-1); Eosinophil# 0.84 X10^3/uL; Eosinophils% 7.6 % (0-5); Hematocrit 39.9 % (37-47); Hemoglobin 13.2 g/dL (12.0-15.0); Lymphocyte # 2.82 X10^3/ul (0.83-4.51); Lymphocyte % 25.4 % (19-41); Mean Corp Hgb Conc 33.1 g/dL (32-36); Mean Corpuscular Hgb 28.1 pg (27.0-32.0); Mean Corpuscular Volume 85.1 fL (81-99); Mean Platelet Vol. 9.7 fl (6.2-12.0); Monocyte# 0.87 X10^3/uL; Monocyte% 7.8 % (0-10); NRBC Flagged by Analyzer 0 % (0-5); Neutrophil # 6.45 X10^3/uL (2.7-7.7); Neutrophil % 58.2 % (47-70); Platelet Count 408 K/mm3 (150-450); RBC Distribution Width CV 13.3 % (11.6-14.6); RBC Distribution Width SD 41.5 fl (35.1-43.9); Red Blood Count 4.69 M/mm3 (4.2-5.4); White Blood Count 11.1 K/mm3 (4.4-11.0)
--- NOTE | 2023-04-10 18:01 | CT_ITS ---
STUDY: CT ABDOMEN AND PELVIS WITH CONTRAST REASON FOR EXAM: Female, 32 years old. RLQ abd pain RADIATION DOSAGE (If Supplied By Facility): CTDIvol = ( 16.91 ) mGy, DLP = ( 1181.05 ) mGycm TECHNIQUE: Transaxial images were obtained from the dome of the diaphragm to the symphysis pubis without oral contrast. IV 100mL Isovue-370 was administered. Sagittal and coronal images were reconstructed. Individualized dose optimization techniques were used for this CT. COMPARISON: None. FINDINGS: The visualized lung bases are unremarkable. The visualized portions of the heart are within normal limits. Normal liver. Normal gallbladder and extrahepatic biliary system. Normal spleen. Normal pancreas. Normal bilateral adrenal glands. Normal right kidney. Normal left kidney. Normal visualized stomach. Normal small intestine. Normal colon. The appendix is visualized and appears normal. Normal abdominal aorta. Normal inferior vena cava. Normal retroperitoneum. Normal urinary bladder. Normal visualized uterus. There are 3.4 and 2.2 cm right pelvic cysts. There is no free fluid in the abdomen or pelvis. Normal abdominal wall. Normal osseous structures. CT/Abdomen/Pelvis W IV Cont ONLY IMPRESSION: Pelvic cysts. Ultrasound correlation recommended. Normal appendix. No obstruction. No hydronephrosis. Electronically Signed: Marshall Dixon MD at 19:27 EST ,
--- NOTE | 2023-04-10 18:02 | ED.VIS.GI ---
HPI HPI - GI History of Present Illness Chief Complaint: Abd Pain Detail of Chief Complaint: Right lower quadrant abdominal pain. Informant: patient and family Abdominal Pain/Flank Pain Onset: Hours Context: Gradual Onset Timing: Continuous Location: RLQ Current Severity: Moderate Maximum Severity: Moderate Worsened by: Nothing Relieved by: Nothing Nausea/Vomiting/Emesis GI Symptom: Positive for Nausea; Negative for Vomiting Onset: Today Severity: Mild Diarrhea/Melena/Hematochezia GI Symptom: Negative for Diarrhea, Melena or Hematochezia Associated Symptoms Associated Symptoms: Negative for Dysuria, Frequency, Hematuria or Urgency Narrative Narrative: 32-year-old female history of asthma. No prior abdominal surgeries. Said around 9 AM this morning she started getting abdominal pain moved to the right lower quadrant initially was intermittent now is constant. She has had nausea no vomiting or diarrhea. No fever. No melena. No dysuria. No vaginal bleeding or discharge. States she cannot be . Denies any abdominal trauma. Has never had any abdominal surgeries. Prior similar symptoms: No Recent Illness/Hospitalization: No PFSH PFS Medical History (Updated 04/10/23 @ 21:[address] Gabe Sosa MD) Asthma Home Medications cholecalciferol (vitamin D3) 1,250 mcg (50,000 unit) capsule See Rx Instructions .Route .COMPLEX #12 caps 06/10/19 [Rx Last Taken Unknown] epinephrine 0.3 mg/0.3 mL injection, auto-injector 0.3 ml IM ONCE PRN anaphylaxis #1 ea 10/21/19 [Rx Last Taken Unknown] fluticasone furoate 200 mcg-vilanterol 25 mcg/dose inhalation powder (Breo Ellipta) 1 inh inhalation DAILY #90 ea 10/21/19 [Rx Last Taken Unknown] albuterol sulfate 0.63 mg/3 mL solution for nebulization 0.63 mg (3 mL) inhalation Q4H PRN shortness of breath or wheezing #90 mL 12/31/19 [Rx Last Taken Unknown] albuterol sulfate 90 mcg/actuation aerosol inhaler 2 puff inhalation Q6H PRN shortness of breath or wheezing #8.5 grams 07/14/20 [Rx Last Taken Unknown] atorvastatin 20 mg tablet 20 mg PO DAILY 07/23/22 [History Last Taken Unknown] semaglutide 0.25 mg or 0.5 mg (2 mg/3 mL) subcutaneous pen injector (Social IQ (Social Influence Quotient)) 0.25 mg subcut QWEEK 07/23/22 [History Last Taken Unknown] prednisone 20 mg tablet 20 mg PO BID #10 tabs 12/09/22 [Rx Last Taken Unknown] hydrocortisone 2.5 % topical cream with perineal applicator (Proctozone-HC) 1 applic [place] BID-QID PRN hemorrhoids #30 grams 02/01/23 [Rx Last Taken Unknown] Allergy/AdvReac Type Severity Reaction Status Date / Time Fish Containing Products Allergy Severe Anaphylaxis Verified 04/10/23 17:06 shellfish derived Allergy Severe Anaphylaxis Verified 04/10/23 17:06 azithromycin Allergy Mild Rash Verified 04/10/23 17:06 cephalexin monohydrate Allergy Rash Verified 04/10/23 17:06 [From Keflex] iodine Allergy Anaphylaxis Verified 04/10/23 17:06 latex Allergy Unknown Verified 04/10/23 17:06 pneumococcal vaccine Allergy Rash Verified 04/10/23 17:06 [From Prevnar 20 (PF)] Family History Mother Diverticulitis IBS (irritable bowel syndrome) Other Arthritis Asthma Hyperlipemia Osteoporosis Thyroid disorder Surgical History History of tonsillectomy Social History Smoking Status: Never smoker alcohol intake: never substance use type: does not use caffeine: Yes what type of physical activity do you participate in: none and walking seatbelt use: always do you feel safe at home: Yes additional social history: Single-works at [employer] ROS ROS ED ROS Narrative Right lower quadrant abdominal pain. Mild nausea. Review of Systems ROS Unobtainable: Denies due to encephalopathy Constitutional Constitutional ED: Denies chills or fever(s) ENT ENT ED: Denies ear pain Cardiovascular Cardiovascular: Denies chest pain Respiratory/Chest Respiratory/Chest: Denies cough or dyspnea Gastrointestinal Gastrointestinal: Reports abdominal pain and nausea; Denies constipation, diarrhea, melena or vomiting Genitourinary Genitourinary ED: Denies dysuria or hematuria Musculoskeletal Musculoskeletal: Denies arthralgias Integumentary Denies abscess Neurologic Neurologic: Denies headache(s) Psychiatric Psychiatric: Denies anxiety Endocrine Endocrinology: Denies polydipsia Hematologic/Lymphatic Hematologic/Lymphatic: Denies easy bleeding Allergic/Immunologic Allergic/Immunologic ED: Denies mouth swelling, tongue swelling or urticaria EXAM Physical Exam Narrative Exam Narrative: Well-appearing 32-year-old female. Vital signs stable afebrile. H EENT exam unremarkable. Neck nontender. Lungs clear to auscultation bilaterally. Heart regular rhythm rate about 75 no murmur. Abdomen soft nondistended normal bowel sounds no peritoneal signs. Tender only in the right lower quadrant. Over McBurney's point. No hernia or mass. No suprapubic or left lower quadrant pain. No signs of trauma. No signs of obstruction. Moving all 4 extremities. Nontender no edema. Back nontender. Neurologically patient is awake and alert with no focal motor deficits. Const Vital Signs: 04/10/23 17:06 04/10/23 20:00 Temperature 97.3 F L Temperature Source Temporal Pulse Rate 75 74 Respiratory Rate 18 18 Blood Pressure 113/76 116/77 Blood Pressure Mean 88 90 Pulse Ox 100 98 Oxygen Delivery Method Room Air Room Air Positive well nourished and well developed; Negative for cachectic, contractures or unkempt General Appearance ED: well developed and NAD; Negative for unkempt, cachectic, contractures or pallor Nutritional Appearance: Negative for cachectic HEENT Reports moist mucous membranes; Denies dry mucous membranes normocephalic and atraumatic; Negative for trauma or tenderness Mouth ED: No dry mucous membranes Mouth: No dry mucous membranes Eyes PERRL and EOMs intact bilaterally General Eye ED: Negative for pale conjunctiva or scleral icterus Neck no lymphadenopathy, supple and no JVD General: Negative for tenderness Carotids: Negative for other Lymph Lymphatic: Negative for other Resp normal respiratory effort and clear to auscultation bilaterally Effort and Inspection: Negative for respiratory distress Auscultation: Negative for rales, rhonchi or wheezes Cardio regular rate, regular rhythm, S1 normal heart sound, S2 normal heart sound and no murmurs Rate: Negative for bradycardia or tachycardic Rhythm: Negative for abnormal rhythm GI non-distended and no masses; Negative for non-tender Inspection: Negative for abdominal distention Auscultation: normoactive bowel sounds Palpation: soft and tender; Negative for guarding, hernia, mass, pulsatile mass or rebound tenderness present Back/Spine no CVA tenderness General Back: Negative for CVA tenderness Cervical Spine: Negative for cervical spine tenderness Thoracic Spine / Upper Back: Negative for thoracic spinal tenderness Lumbar Spine / Lower Back: Negative for lumbar spinal tenderness Coccyx: Negative for other Extremity full ROM General Extremety ED: Negative for edema, tenderness or other findings General Extremity: Negative for edema or other findings Neuro CN's II-XII intact bilaterally and moves all extremities Sensorium / Orientation: alert, oriented to person, oriented to place and oriented to time; Negative for orientation impaired, confused, lethargic or stuporous Motor Exam: strength 5/5 throughout Psych mental status grossly normal and thought process normal Appearance: Negative for unkempt Attitude: No agitated Mood & Affect: Negative for depressed, anxious or tearful Skin no wounds General Skin Exam: Negative for jaundice or pallor Lesions: no lesions Rashes: no rashes Trauma: Negative for abrasion Nails: Negative for discolored MDM MDM MDM Narrative Medical decision making narrative: 32-year-old female no prior abdominal surgery right lower quadrant abdominal pain today. No history of urinary symptoms or fever. Mild nausea. She was offered but did not want a thing for pain or nausea. Differential would include appendicitis versus mesenteric adenitis versus ovarian cyst versus other. CAT scan and labs are being obtained. Repeat exam patient doing well at 9:45 PM. Her labs were normal. UA negative. CAT scan showed 2 right ovarian cysts of 2.2 and 3.4 cm. Patient be discharged home. Motrin Tylenol for pain. Follow-up with her [facility]. Lab Data Attestation: I reviewed the patient's lab results. Lab results narrative: CBC shows white count 11.1. H&H 13 and 39. Platelets 408. Electrolytes show gap of 2. BUN and creatinine at 20 and 0.6. Glucose 88. Liver enzymes are normal. Serum test negative. UA negative. No infection. CAT scan shows pelvic cyst. Normal appendix. Labs: Laboratory Results - last 24 hr 04/10/23 04/10/23 17:50 18:09 WBC 11.1 H RBC 4.69 Hgb 13.2 Hct 39.9 MCV 85.1 MCH 28.1 MCHC 33.1 RDW Std Deviation 41.5 RDW Coeff of Avinash 13.3 Plt Count 408 MPV 9.7 Immature Gran % (Auto) 0.500 Neut % (Auto) 58.2 Lymph % (Auto) 25.4 Barbour % (Auto) 7.8 Eos % (Auto) 7.6 H Baso % (Auto) 0.5 Absolute Neuts (auto) 6.5 Absolute Lymphs (auto) 2.82 Nucleated RBC % 0 Sodium 138 Potassium 4.1 Chloride 110 H Carbon Dioxide 26.0 Anion Gap 2 L BUN 20 H Creatinine 0.64 Estim Creat Clear Calc 141.48 Est GFR (MDRD) Af Amer 136 Est GFR (MDRD) Non-Af 113 BUN/Creatinine Ratio 31.2 H Glucose 88 Calcium 8.8 Total Bilirubin 0.20 AST 14 L ALT 14 Alkaline Phosphatase 64 Total Protein 7.3 Albumin 3.5 Globulin 3.8 Albumin/Globulin Ratio 0.9 Serum , Qual NEGATIVE Urine Color Yellow Urine Clarity Clear Urine pH 7.0 Ur Specific [place] 1.010 Urine Protein Negative Urine Glucose (UA) Normal Urine Ketones Negative Urine Occult Blood Negative Urine Nitrite Negative Urine Bilirubin Negative Urine Urobilinogen Normal Ur Leukocyte Esterase Negative Urine RBC 0 SEEN Urine WBC 0 SEEN Ur Squamous Epith Cells 0-5 SEEN Urine Bacteria 0 SEEN Urine Mucus 0 SEEN Radiography Diagnostic Testing: Clinical Impression(s) from Imaging Studies Abdomen/Pelvis CT 04/10/23 18:01 IMPRESSION: Pelvic cysts. Ultrasound correlation recommended. Normal appendix. No obstruction. No hydronephrosis. Electronically Signed: Marshall Dixon MD at 19:27 EST , Discharge Plan Triage Chief Complaint: Abd Pain ED Provider: Gabe Sosa Dx/Rx/DC Orders Clinical Impression: Ovarian cyst, Pelvic pain, Abdominal pain Instructions: ED Ovarian Cyst Prescriptions: No Action hydrocortisone [Proctozone-HC] 2.5 % cream with perineal applicator 1 applic [place] BID-QID PRN (Reason: hemorrhoids) Qty: 30 1RF atorvastatin 20 mg tablet 20 mg PO DAILY Patient Comments: TAKE 1 TABLET BY MOUTH DAILY AT BEDTIME. FOR CHOLESTEROL Ozempic 0.25 mg or 0.5 mg (2 mg/3 mL) pen injector 0.25 mg SUBCUT QWEEK Patient Comments: inject 0.25 mg SUBCUTANEOUSLY one time per week prednisone 20 mg tablet 20 mg PO BID Qty: 10 0RF cholecalciferol (vitamin D3) 1,250 mcg (50,000 unit) capsule See Rx Instructions .ROUTE .COMPLEX Qty: 12 1RF Dose Instruction: TAKE 1 CAPSULE BY MOUTH EVERY WEEK Rx Instructions: TAKE 1 CAPSULE BY MOUTH EVERY WEEK epinephrine 0.3 mg/0.3 mL auto-injector 0.3 ml IM ONCE PRN (Reason: anaphylaxis) Qty: 1 0RF Breo Ellipta 200-25 mcg/dose blister with device 1 inh INHALATION DAILY Qty: 90 3RF albuterol sulfate 0.63 mg/3 mL solution for nebulization 0.63 mg INHALATION Q4H PRN (Reason: shortness of breath or wheezing) Qty: 90 2RF albuterol sulfate 90 mcg/actuation HFA aerosol inhaler 2 puff inhalation Q6H PRN (Reason: shortness of breath or wheezing) Qty: 8.5 1RF Rx Instructions: INHALE 2 PUFFS EVERY 6 HOURS NEEDED FOR SHORTNESS OF BREATH OR WHEEZING Primary Care Provider: Kush Briones Referrals: Kush Briones MD [Primary Care Provider] - Activity Restrictions/Additional Instructions: You have to cysts on the right. Motrin and Tylenol for pain. Follow-up with your [facility] Dr. Ghosh Your appendix was normal. Your lab work was normal. Disposition Disposition: Home, Self Care
[2023-04-10 18:07] LABS: Internal QC Validated? YES +Cl - CLEAR BKGD; Pregnancy, Serum, hCG Quali. NEGATIVE Negative
[2023-04-10 18:14] LABS: Bacteria 0 SEEN /hpf (None Seen); Mucous, Urine 0 SEEN /hpf (<or=2+); Red Blood Cells-Urine 0 SEEN /hpf (0-5); White Blood Cells 0 SEEN /hpf (0-5)
[2023-04-10 18:15] LABS: ALB/GLOB Ratio 0.9 RATIO (0.9-2.4); AST(SGOT) 14 U/L (15-37); Alanine Aminotransfer ALT/SGPT 14 U/L (13-56); Albumin, Serum 3.5 g/dL (3.2-5.0); Alkaline Phosphatase 64 U/L (45-117); Anion Gap 2 (5-15); BUN 20 mg/dL (7-18); BUN/Creat Ratio 31.2 RATIO (10-20); Calcium,Total 8.8 mg/dL (8.5-10.1); Chloride 110 mmol/L (98-107); Creatinine, Serum 0.64 mg/dL (0.55-1.02); EST Glomerular Filtration Rate 113 mL/min (>60); Est Glom Filt Rate - Afr Amer 136 mL/min (>60); Estimated Creatinine Clearance 141.48 ml/min; Globulin 3.8 g/dL (2.2-4.2); Glucose 88 mg/dL (74-106); Potassium 4.1 mmol/L (3.5-5.1); Protein, Total 7.3 g/dL (6.4-8.2); Sodium Level 138 mmol/L (136-145)
[2023-04-10 18:20] LABS: Color, Urine Yellow (Yellow); Glucose, Dipstick Normal (Normal); Ketone-Dipstick Negative (Negative); Leukocyte Esterase-Dipstick Negative /ul (Negative); Nitrite-Dipstick Negative (Negative); Occult Blood-Urine Negative /ul (Negative); Protein-Dipstick Negative (Negative); Urine Bilirubin Dipstick Negative (Negative); Urine Clarity Clear (Clear); Urine Urobilinogen Normal (Normal)
[2023-04-10 18:29] LABS: Squamous Epithelial Cells - UA 0-5 SEEN /hpf (5-10)
[2023-04-10 20:00] VITALS: BP 116/77; PULSE 74; RESP 18; O2SAT 98
--- NOTE | 2023-04-10 22:01 | ED.RN ---
Pt and mother upset and frustrated with wait for MD to come back to room with results and reevaluation. This RN apologized several times, had several conversations explaining department was extremely busy and MDs were with critical pt's. Pt's mother went to MDs office to find MD and ask for discharge.Pt adamantly refused discharge vital signs, states blood pressure cuff is too painful. Pt and mother further state they are upset an EMS student inserted the IV. 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 This RN explained the EMS students were required to spend a certain amount of hours in the ED and obtain a certain number of IV insertion under the guidance of ED staff. Pt states the IV hurt this time and it should never hurt . IV removed from pt, angiocath was intact, no signs of occlusion, infiltration or bruising noted at site.
== END 2023-04-10 22:11 | disposition home or self-care (01) ==
PROVIDERS: Emergency Provider Emergency Medicine; PCP Family Medicine; Visit Provider Emergency Medicine
DX: N83.201 Unspecified ovarian cyst, right side (principal); R10.2 Pelvic and perineal pain; R10.9 Unspecified abdominal pain
CPT/HCPCS: 74177; 80053; 81001; 84703; 85025; 99282; Q9967; A4216

== ENCOUNTER 2024-03-05 22:36 | Emergency (ER) | payer BC, SELFPAY ==
[2024-03-05 22:37] VITALS: BP 123/90; PULSE 70; RESP 18; TEMP 36.6; O2SAT 100; BMI 45.8
[2024-03-05 22:56] LABS: Absolute Lymphocyte Count 3.06 X10^3/uL (0.83-4.51); Absolute Neutrophil Count 5.9 X10^3/uL (2.0-7.7); Basophil# 0.07 X10^3/uL; Basophil% 0.7 % (0-1); Eosinophils% 4.7 % (0-5); Hematocrit 40.3 % (37-47); Hemoglobin 13.2 g/dL (12.0-15.0); Lymphocyte # 3.06 X10^3/ul (0.83-4.51); Lymphocyte % 28.9 % (19-41); Mean Corp Hgb Conc 32.8 g/dL (32-36); Mean Corpuscular Hgb 27.7 pg (27.0-32.0); Mean Corpuscular Volume 84.7 fL (81-99); Mean Platelet Vol. 9.3 fl (6.2-12.0); Monocyte# 0.98 X10^3/uL; Monocyte% 9.3 % (0-10); NRBC Flagged by Analyzer 0 % (0-5); Neutrophil # 5.92 X10^3/uL (2.7-7.7); Neutrophil % 55.9 % (47-70); Platelet Count 486 K/mm3 (150-450); RBC Distribution Width SD 43.5 fl (35.1-43.9); Red Blood Count 4.76 M/mm3 (4.2-5.4); White Blood Count 10.6 K/mm3 (4.4-11.0)
--- NOTE | 2024-03-05 23:07 | CT_ITS ---
PROCEDURE: ABDOMEN/PELVIS WITHOUT CONT REASON FOR EXAM: Left lower quadrant abdominal pain. TECHNIQUE: Abdomen and pelvis CT without intravenous contrast. COMPARISON: 04/10/2023 CT. FINDINGS: Lung bases: Clear Liver: Unremarkable. Gallbladder: Unremarkable. Spleen: Unremarkable. Pancreas: Unremarkable. Adrenals: Unremarkable. Kidneys: Unremarkable. Bladder: Concentric urinary bladder wall thickening. Reproductive Organs: Right adnexal unilocular cyst. Bowel: Unremarkable. Appendix: Normal. Lymph nodes: No suspicious lymph node enlargement. Vasculature: Major vascular structures are unremarkable. Peritoneum / Retroperitoneum: No ascites. No free air. Bones: Unremarkable. CT/Abdomen/Pelvis without Cont IMPRESSION: Concentric urinary bladder wall thickening. Correlate with urinalysis to exclu de cystitis. One or more dose reduction techniques were used (e.g., Automated exposure contr ol, adjustment of the mA and/or kV according to patient size, use of iterative reconstruction technique). Reading Location: [id number]
--- NOTE | 2024-03-05 23:08 | ED.VIS.GI ---
HPI HPI - GI History of Present Illness Chief Complaint: Abd Pain Informant: patient and parent Narrative Narrative: Patient presents with father for evaluation lower abdominal pain started 3 PM less than 8 hours ago. States started left side has migrated over the right lower quadrant since then. No fevers. Nausea without vomiting. No urinary symptoms. Finished her menstrual period 3 days ago. Denies any abdominal surgeries. However showed me MRI pelvis performed February 07 ordered by her PCP. She states this was ordered due to having mild discomfort pelvis after working out. She had an abnormal ultrasound MRI with endometriomas left ovary. Reports this pain is different. Patient took Tylenol few hours ago. Prior similar symptoms: No PFSH PFSH Medical History (Updated 03/06/24 @ 01:[address] Mejia Jones, DO) Asthma Home Medications ?Medication ?Instructions ?Recorded ?Last Taken ?Type cholecalciferol (vitamin D3) 1,250 See Rx Instructions .Route 06/10/19 Unknown Rx mcg (50,000 unit) capsule .COMPLEX #12 caps epinephrine 0.3 mg/0.3 mL 0.3 ml IM ONCE PRN anaphylaxis #1 10/21/19 Unknown Rx injection, auto-injector ea fluticasone furoate 200 1 inh inhalation DAILY #90 ea 10/21/19 Unknown Rx mcg-vilanterol 25 mcg/dose inhalation powder (Breo Ellipta) albuterol sulfate 0.63 mg/3 mL 0.63 mg (3 mL) inhalation Q4H PRN 12/31/19 Unknown Rx solution for nebulization shortness of breath or wheezing #90 mL albuterol sulfate 90 mcg/actuation 2 puff inhalation Q6H PRN 07/14/20 Unknown Rx aerosol inhaler shortness of breath or wheezing #8.5 grams atorvastatin 20 mg tablet 20 mg PO DAILY 07/23/22 Unknown History semaglutide 0.25 mg or 0.5 mg (2 0.25 mg subcut QWEEK 07/23/22 Unknown History mg/3 mL) subcutaneous pen injector (Ozempic) prednisone 20 mg tablet 20 mg PO BID #10 tabs 12/09/22 Unknown Rx hydrocortisone 2.5 % topical cream 1 applic [place] BID-QID PRN 02/01/23 Unknown Rx with perineal applicator hemorrhoids #30 grams (Proctozone-HC) ondansetron 4 mg disintegrating 4 mg PO Q8H PRN PRN Nausea #10 tabs 03/06/24 Unknown Rx tablet Allergy/AdvReac Type Severity Reaction Status Date / Time Fish Containing Products Allergy Severe Anaphylaxis Verified 03/05/24 22:36 shellfish derived Allergy Severe Anaphylaxis Verified 03/05/24 22:36 azithromycin Allergy Mild Rash Verified 03/05/24 22:36 cephalexin monohydrate (From Allergy Rash Verified 03/05/24 22:36 Keflex) iodine Allergy Anaphylaxis Verified 03/05/24 22:36 latex Allergy Unknown Verified 03/05/24 22:36 pneumococcal vaccine (From Allergy Rash Verified 03/05/24 22:36 Prevnar 20 (PF)) Family History Mother Diverticulitis IBS (irritable bowel syndrome) Other Arthritis Asthma Hyperlipemia Osteoporosis Thyroid disorder Surgical History History of tonsillectomy Social History Smoking Status: Never smoker alcohol intake: never substance use type: does not use caffeine: Yes what type of physical activity do you participate in: none and walking seatbelt use: always do you feel safe at home: Yes additional social history: Single-works at [employer] [facility] ED Constitutional Constitutional ED: Denies chills, fever(s) or sweats ENT ENT ED: Denies sore throat Cardiovascular Cardiovascular: Denies chest pain, leg edema, palpitations or racing heartbeat Respiratory/Chest Respiratory/Chest: Denies cough, dyspnea or dyspnea on exertion Gastrointestinal Gastrointestinal: Reports abdominal pain and nausea; Denies diarrhea or vomiting Genitourinary Genitourinary ED: Denies dysuria, hematuria or urinary frequency Musculoskeletal Musculoskeletal: Denies back pain, extremity pain or neck pain Integumentary Denies rash or wounds Neurologic Neurologic: Denies headache(s), paresthesias or weakness EXAM Physical Exam Const Vital Signs: 03/05/24 22:37 03/06/24 01:28 Temperature 97.8 F 98.2 F Temperature Source Temporal Pulse Rate 70 69 Respiratory Rate 18 17 Blood Pressure 123/90 H 129/78 H Blood Pressure Mean 101 95 Pulse Ox 100 97 Oxygen Delivery Method Room Air Positive well nourished and well developed General Appearance ED: well developed and NAD HEENT Reports moist mucous membranes normocephalic and atraumatic Eyes General Eye ED: Yes normal appearance of both eyes Neck full ROM Chest Wall Chest: Negative for tenderness Resp normal respiratory effort and normal air movement Effort and Inspection: symmetric chest movement; Negative for respiratory distress Cardio regular rate, regular rhythm and no murmurs Peripheral Pulses: pulses 2+ throughout GI normal to inspection, nondistended, normoactive bowel sounds GI Narrative: Negative Rojas's, right lower quadrant tenderness. Negative Rovsing's. Palpation: Negative for guarding or rebound tenderness present Extremity normal to inspection General Extremety ED: Negative for edema or tenderness General Extremity: Negative for edema Neuro oriented x3 and no sensory deficits noted Sensorium / Orientation: awake and alert Skin no rashes or lesions noted and no wounds MDM MDM MDM Narrative Medical decision making narrative: Interventions / MDM: Differential diagnosis: Abdominal pain, complex endometrioma Diagnosis considered but do not suspect: Appendicitis however CT normal. My EKG interpretation: N/A Imaging independently reviewed and interpreted by myself: CT abdomen pelvis: Normal appendix. Reported right adnexal cysts per radiology. External documents reviewed: N/A Test considered but not ordered:N/A ED course: Progressive pain left side over to the right lower quadrant. No abdominal surgery history. IV established for labs and urine. Patient anaphylaxis to iodine and IV dye. Will obtain noncontrast CT abdomen pelvis for evaluation for right lower quadrant pain. White fluids Zofran ordered. She declines any additional pain medicines at this time. Labs stable urine negative for infection. CT scan normal appendix, reported redness of cystic structure per radiology. However from patient's MRI report 27 days ago endometriomas left adnexa complex. Patient follows [facility] Dr. May, states due to complexity was referred to Dr. Farideh berrios at [facility] for evaluation of this. Meantime she will use Motrin. Prescription Zofran to her pharmacy use as needed. I discussed tricked return precautions with the patient. All questions were answered. Re-evaluation: stable Disposition discussed with patient/family/significant other: Patient and father Case discussed with consulting clinician: N/A This note was generated with [employer] dictation software. It may contain incorrect words, spelling, and punctuation that were not noted in checking the note before signing. Lab Data Attestation: I reviewed the patient's lab results. Labs: Laboratory Results - last 24 hr 03/05/24 03/06/24 22:45 00:15 WBC 10.6 RBC 4.76 Hgb 13.2 Hct 40.3 MCV 84.7 MCH 27.7 MCHC 32.8 RDW Std Deviation 43.5 RDW Coeff of Avinash 14.0 Plt Count 486 H MPV 9.3 Immature Gran % (Auto) 0.500 Neut % (Auto) 55.9 Lymph % (Auto) 28.9 [place] % (Auto) 9.3 Eos % (Auto) 4.7 Baso % (Auto) 0.7 Absolute Neuts (auto) 5.9 Absolute Lymphs (auto) 3.06 Nucleated RBC % 0 Sodium 140 Potassium 3.7 Chloride 107 Carbon Dioxide 27.0 Anion Gap 6 BUN 21 H Creatinine 0.62 Estim Creat Clear Calc 152.39 Est GFR (MDRD) Af Amer 141 Est GFR (MDRD) Non-Af 116 BUN/Creatinine Ratio 33.8 H Glucose 93 Calcium 9.2 Total Bilirubin 0.30 AST 41 H ALT 46 Alkaline Phosphatase 68 Total Protein 7.5 Albumin 3.5 Globulin 4.0 Albumin/Globulin Ratio 0.9 Serum , Qual NEGATIVE Urine Color Yellow Urine Clarity Clear Urine pH 5.0 Ur Specific [place] 1.025 Urine Protein Negative Urine Glucose (UA) Normal Urine Ketones Negative Urine Occult Blood 10 H Urine Nitrite Negative Urine Bilirubin Negative Urine Urobilinogen Normal Ur Leukocyte Esterase Negative Urine RBC 0-5 SEEN Urine WBC 0-5 SEEN Ur Squamous Epith Cells 25-50 SEEN Urine Bacteria 1+ Urine Mucus RARE Radiography Diagnostic Testing: Clinical Impression(s) from Imaging Studies Abdomen/Pelvis CT 03/05/24 23:07 IMPRESSION: Concentric urinary bladder wall thickening. Correlate with urinalysis to exclude cystitis. One or more dose reduction techniques were used (e.g., Automated exposure control, adjustment of the mA and/or kV according to patient size, use of iterative reconstruction technique). Reading Location: [facility] Discharge Plan Triage Chief Complaint: Abd Pain ED Provider: Mejia Jones Dx/Rx/DC Orders Clinical Impression: Abdominal pain, History of endometriosis Instructions: Abdominal Pain, ED Endometriosis Prescriptions: New ondansetron 4 mg tablet,disintegrating 4 mg PO Q8H PRN PRN (Reason: Nausea) Qty: 10 0RF No Action hydrocortisone [Proctozone-HC] 2.5 % cream with perineal applicator 1 applic WA BID-QID PRN (Reason: hemorrhoids) Qty: 30 1RF atorvastatin 20 mg tablet 20 mg PO DAILY Patient Comments: TAKE 1 TABLET BY MOUTH DAILY AT BEDTIME. FOR CHOLESTEROL Ozempic 0.25 mg or 0.5 mg (2 mg/3 mL) pen injector 0.25 mg SUBCUT QWEEK Patient Comments: inject 0.25 mg SUBCUTANEOUSLY one time per week prednisone 20 mg tablet 20 mg PO BID Qty: 10 0RF cholecalciferol (vitamin D3) 1,250 mcg (50,000 unit) capsule See Rx Instructions .ROUTE .COMPLEX Qty: 12 1RF Dose Instruction: TAKE 1 CAPSULE BY MOUTH EVERY WEEK Rx Instructions: TAKE 1 CAPSULE BY MOUTH EVERY WEEK epinephrine 0.3 mg/0.3 mL auto-injector 0.3 ml IM ONCE PRN (Reason: anaphylaxis) Qty: 1 0RF Breo Ellipta 200-25 mcg/dose blister with device 1 inh INHALATION DAILY Qty: 90 3RF albuterol sulfate 0.63 mg/3 mL solution for nebulization 0.63 mg INHALATION Q4H PRN (Reason: shortness of breath or wheezing) Qty: 90 2RF albuterol sulfate 90 mcg/actuation HFA aerosol inhaler 2 puff inhalation Q6H PRN (Reason: shortness of breath or wheezing) Qty: 8.5 1RF Rx Instructions: INHALE 2 PUFFS EVERY 6 HOURS NEEDED FOR SHORTNESS OF BREATH OR WHEEZING Stand Alone Forms: ED Work / School Excuse Primary Care Provider: Kush Briones Referrals: Kush Briones MD [Primary Care Provider] - 3-5 Days if not improving Activity Restrictions/Additional Instructions: CT scan normal appendix. Right adnexal cyst. You had recent MRI reviewed with you complex endometriosis. Continue Motrin every 6 hours. Zofran as needed. Keep your follow-up with your gynecology team. Develop worsening symptoms fevers vomiting diarrhea, return to ED for reevaluation. Print Language: Malay Disposition Disposition: Home, Self Care Discharge Date/Time: 03/06/24 01:31
[2024-03-05 23:20] LABS: ALB/GLOB Ratio 0.9 RATIO (0.9-2.4); AST(SGOT) 41 U/L (15-37); Alanine Aminotransfer ALT/SGPT 46 U/L (13-56); Albumin, Serum 3.5 g/dL (3.2-5.0); Alkaline Phosphatase 68 U/L (45-117); Anion Gap 6 (5-15); BUN 21 mg/dL (7-18); BUN/Creat Ratio 33.8 RATIO (10-20); Calcium,Total 9.2 mg/dL (8.5-10.1); Chloride 107 mmol/L (98-107); Creatinine, Serum 0.62 mg/dL (0.55-1.02); EST Glomerular Filtration Rate 116 mL/min (>60); Est Glom Filt Rate - Afr Amer 141 mL/min (>60); Estimated Creatinine Clearance 152.39 ml/min; Glucose 93 mg/dL (74-106); Potassium 3.7 mmol/L (3.5-5.1); Protein, Total 7.5 g/dL (6.4-8.2); Sodium Level 140 mmol/L (136-145)
[2024-03-05 23:23] LABS: Internal QC Validated? YES +Cl - CLEAR BKGD; Pregnancy, Serum, hCG Quali. NEGATIVE Negative
[2024-03-05] MEDS: Ondansetron 4 MG/2 ML Vial IV (23:27)
[2024-03-05] MEDS: 0.9% Normal Saline (1000mL) 1,000 ML 999 ML IV (23:27)
[2024-03-06 00:27] LABS: Color, Urine Yellow (Yellow); Glucose, Dipstick Normal (Normal); Ketone-Dipstick Negative (Negative); Leukocyte Esterase-Dipstick Negative /ul (Negative); Nitrite-Dipstick Negative (Negative); Occult Blood-Urine 10 /ul (Negative); Protein-Dipstick Negative (Negative); Specific Gravity, Urine 1.025 (1.002-1.030); Urine Bilirubin Dipstick Negative (Negative); Urine Clarity Clear (Clear); Urine Urobilinogen Normal (Normal)
[2024-03-06 01:01] LABS: Red Blood Cells-Urine 0-5 SEEN /hpf (0-5); White Blood Cells 0-5 SEEN /hpf (0-5)
[2024-03-06 01:02] LABS: Bacteria 1+ /hpf (None Seen); Mucous, Urine RARE /hpf (<or=2+); Squamous Epithelial Cells - UA 25-50 SEEN /hpf (5-10)
[2024-03-06 01:28] VITALS: BP 129/78; PULSE 69; RESP 17; TEMP 36.8; O2SAT 97
== END 2024-03-06 01:31 | disposition home or self-care (01) ==
PROVIDERS: Emergency Provider Emergency Medicine; PCP Family Medicine; Visit Provider Emergency Medicine
DX: R10.9 Unspecified abdominal pain (principal); R11.0 Nausea; Z87.42 Personal history of other diseases of the female genital tract; J45.909 Unspecified asthma, uncomplicated
CPT/HCPCS: 74176; 80053; 81001; 84703; 85025; 96361; 96374; 99283; A4216; J2405

== ENCOUNTER 2024-07-26 22:29 | Emergency (ER) | payer BC, SELFPAY ==
[2024-07-26 22:30] VITALS: BP 146/112; PULSE 70; RESP 18; TEMP 36.4; O2SAT 98; BMI 46.6
--- NOTE | 2024-07-26 23:16 | CT_ITS ---
PROCEDURE: ABDOMEN/PELVIS W IV CONT ONLY 07/26/2024 REASON FOR EXAM: RIGHT LOWER QUADRANT ABDOMINAL PAIN TECHNIQUE: ABDOMEN/PELVIS W IV CONT ONLY. Coronal and Sagittal reconstruction series were provided. CONTRAST: Isovue-300 50 VOLUME: 100 mL One or more dose reduction techniques were used (e.g., Automated exposure control, adjustment of the mA and/or kV according to patient size, use of iterative reconstruction technique. RADIATION DOSE SUMMARY: CTDlvol: 24.16 mGy DLP: 1246 mGycm COMPARISON: 03/05/2024. FINDINGS: Diffuse thickening of the bladder suggestive of cystitis. Moderate amount of fecal residue in the colon, more prominent in the cecum, probably constipation. The visualized lung bases are unremarkable. Normal liver. Normal gallbladder and extrahepatic biliary system. Normal spleen. Normal pancreas. Normal bilateral adrenal glands. Normal size of the right kidney. There is no right renal mass. There are no right renal calculi. There is no right hydronephrosis. Normal visualized right ureter. Normal size of the left kidney. There is no left renal mass. There are no left renal calculi. There is no left hydronephrosis. Normal visualized left ureter. Normal visualized stomach. Normal small intestine. Normal colon. The appendix is visualized and appears normal. There is no demonstrated peritoneal fluid. Normal abdominal aorta. Normal inferior vena cava. Normal retroperitoneum. There is no pelvic mass lesion or lymphadenopathy. There is no pelvic fluid. Normal abdominal wall. Mild diffuse spondylosis. CT/Abdomen/Pelvis W IV Cont ONLY IMPRESSION: Diffuse thickening of the bladder suggestive of cystitis. Moderate amount of fecal residue in the colon, more prominent in the cecum, pro bably constipation. Reading Location: [place] [id number]
--- NOTE | 2024-07-26 23:18 | EDS_ITS ---
HPI HPI - GI History of Present Illness Chief Complaint: Abd Pain Narrative Narrative: 34-year-old female past medical history of partial hysterectomy with right ovary remaining presents with right lower quadrant abdominal pain that began today, earlier in the morning. She relates history that she had a partial hysterectomy performed at [facility] at the end of June on the , approximately 4 weeks ago. She started developing pain in her right lower quadrant of her abdomen. She denies any fevers or chills, slight nausea but no vomiting. No dysuria or hematuria. No problems with bowel movements. No exacerbating or alleviating factors. She states that her pain is starting to intensify and got worse. [facility] Medical History Asthma exacerbation Asthma Home Medications ?Medication ?Instructions ?Recorded ?Last Taken ?Type cholecalciferol (vitamin D3) 1,250 See Rx Instructions .Route 06/10/19 Unknown Rx mcg (50,000 unit) capsule .COMPLEX #12 caps epinephrine 0.3 mg/0.3 mL 0.3 ml IM ONCE PRN anaphylax is #1 10/21/19 Unknown Rx injection, auto-injector ea fluticasone furoate 200 1 inh inhalation DAILY #90 e a 10/21/19 Unknown Rx mcg-vilanterol 25 mcg/dose inhalation powder (Breo Ellipta) albuterol sulfate 0.63 mg/3 mL 0.63 mg (3 mL) inhalati on Q4H PRN 12/31/19 Unknown Rx solution for nebulization shortness of breath or wheez ing #90 mL albuterol sulfate 90 mcg/actuation 2 puff inhalation Q 6H PRN 07/14/20 Unknown Rx aerosol inhaler shortness of breath or wheez ing #8.5 grams atorvastatin 20 mg tablet 20 mg PO DAILY 07/23/22 Unkn own History semaglutide 0.25 mg or 0.5 mg (2 0.25 mg subcut QWEEK 07/23/22 Unknown History mg/3 mL) subcutaneous pen injector (Ozempic) ipratropium 0.5 mg-albuterol 3 mg 3 ml continuous nebu lization ONCE 05/07/24 Unknown Clinic (2.5 mg base)/3 mL nebulization #1 mL soln Allergy/AdvReac Type Severity Reaction Status Date / Time Fish Containing Products Allergy Severe Anaphylaxis Verified 07/26/24 22:30 shellfish derived Allergy Severe Anaphylaxis Verified 07/26/24 22:30 azithromycin Allergy Mild Rash Verified 07/26/24 22:30 cephalexin monohydrate (From Allergy Rash Verified 07/26/24 22:30 Keflex) latex Allergy Unknown Verified 07/26/24 22:30 pneumococcal vaccine (From Allergy Rash Verified 07/26/24 22:30 Prevnar 20 (PF)) Family History Mother Diverticulitis IBS (irritable bowel syndrome) Other Arthritis Asthma Hyperlipemia Osteoporosis Thyroid disorder Surgical History History of tonsillectomy Social History Smoking Status: Never smoker alcohol intake: never substance use type: does not use caffeine: Yes what type of physical activity do you participate in: none and walking seatbelt use: always do you feel safe at home: Yes additional social history: Single-works at [employer] [facility] ED ROS Narrative Review of systems positive for slight nausea and positive right lower quadrant abdominal pain. No fevers or chills. No vomiting. No dysuria or hematuria. No problems with bowel movements. No exacerbating or alleviating factors. EXAM Physical Exam Narrative Exam Narrative: Afebrile. Vital signs noted. Nontoxic-appearing. Cardiovascular examination reveals a regular rate and rhythm. Lungs are clear to auscultation bilaterally. Abdomen is soft with mild tenderness to palpation of the right lower quadrant, no guarding or rebound, positive bowel sounds. Negative Rovsing sign. No peritoneal signs. Neurological examination nonfocal, nonlateralizing. Const Vital Signs: 07/26/24 22:30 07/27/24 00:30 Temperature 97.6 F L Temperature Source Oral Pulse Rate 70 69 Respiratory Rate 18 18 Blood Pressure 146/112 H 131/78 H Blood Pressure Mean 123 95 Pulse Ox 98 100 Oxygen Delivery Method Room Air Room Air MDM MDM MDM Narrative Medical decision making narrative: Differential diagnosis includes but not limited to ureterolithiasis versus appendicitis versus ovarian cyst with rupture as she still has a remaining right ovary. She was given morphine and ondansetron and CT imaging obtained as well as basic laboratory work and UA. As she does not have a uterus and has had hy sterectomy I do not feel that she needs a test. I reviewed her laboratory work and she has normal white count 9.4 with hemoglobin 13.3, hematocrit 40.9, platelet count slightly elevated at 484 which I think is nonspecific, CMP is remarkable for a BUN of 20 and creatinine low at 0.64. LFTs are normal. Urinalysis is negative for infection with negative nitrites negative leukocyte esterase and 0 WBCs. I do not feel antibiotics are indicated. I reviewed the radiology report of the CT of the abdomen and pelvis and the appendix is visualized and is not inflamed. There is a thickened bladder wall, but with a negative urinalysis, I do not feel antibiotics are indicated. At this point in time, I feel she can be discharged to follow-up. She can take [id number] medications as I do not feel narcotics are indicated. Return instructions to the emergency department were reviewed. Disposition is discharged home in stable condition. History & Record Review Discussion w/independent historian: Patient Lab Data Attestation: I reviewed the patient's lab results. Labs: Laboratory Results - last 24 hr 07/26/24 07/26/24 22:40 22:51 WBC 9.4 RBC 4.74 Hgb 13.3 Hct 40.9 MCV 86.3 MCH 28.1 MCHC 32.5 RDW Std Deviation 43.3 RDW Coeff of Avinash 13.7 Plt Count 484 H MPV 10.2 Immature Gran % (Auto) 0.500 Neut % (Auto) 53.4 Lymph % (Auto) 29.6 [place] % (Auto) 8.4 Eos % (Auto) 7.5 H Baso % (Auto) 0.6 Absolute Neuts (auto) 5.0 Absolute Lymphs (auto) 2.78 Nucleated RBC % 0 Sodium 137 Potassium 4.3 Chloride 103 Carbon Dioxide 23.0 Anion Gap 11 BUN 20 H Creatinine 0.64 L Estim Creat Clear Calc 147.80 Est GFR (MDRD) Non-Af 118 BUN/Creatinine Ratio 31.5 H Glucose 88 Calcium 9.2 Total Bilirubin 0.27 AST 17 ALT 7 Alkaline Phosphatase 75 Total Protein 7.5 Albumin 4.2 Globulin 3.4 Albumin/Globulin Ratio 1.2 Urine Color Yellow Urine Clarity Clear Urine pH 6.0 Ur Specific [place] 1.020 Urine Protein Negative Urine Glucose (UA) Normal Urine Ketones Negative Urine Occult Blood Negative Urine Nitrite Negative Urine Bilirubin Negative Urine Urobilinogen Normal Ur Leukocyte Esterase Negative Urine RBC 0 SEEN Urine WBC 0 SEEN Ur Squamous Epith Cells 5-10 SEEN Urine Bacteria 1+ Urine Mucus 0 SEEN Urine Yeast RARE Radiography Diagnostic Testing: Clinical Impression(s) from Imaging Studies Abdomen/Pelvis CT 07/26/24 23:16 IMPRESSION: Diffuse thickening of the bladder suggestive of cystitis. Moderate amount of fecal residue in the colon, more prominent in the cecum, probably constipation. [facility] Dis[facility] Triage Chief Complaint: Abd Pain ED Provider: Tre Mcfarland Dx/Rx/DC Orders Clinical Impression: Abdominal pain, right lower quadrant, Bladder wall thickening Instructions: ED Abdominal Pain Unkn Cause Fem Prescriptions: No Action ipratropium-albuterol 0.5 mg-3 mg(2.5 mg base)/3 mL solution for nebulization 3 ml continuous nebulization ONCE Qty: 1 0RF atorvastatin 20 mg tablet 20 mg PO DAILY Patient Comments: TAKE 1 TABLET BY MOUTH DAILY AT BEDTIME. FOR CHOLESTEROL Ozempic 0.25 mg or 0.5 mg (2 mg/3 mL) pen injector 0.25 mg SUBCUT QWEEK Patient Comments: inject 0.25 mg SUBCUTANEOUSLY one time per week cholecalciferol (vitamin D3) 1,250 mcg (50,000 unit) capsule See Rx Instructions .ROUTE .COMPLEX Qty: 12 1RF Dose Instruction: TAKE 1 CAPSULE BY MOUTH EVERY WEEK Rx Instructions: TAKE 1 CAPSULE BY MOUTH EVERY WEEK epinephrine 0.3 mg/0.3 mL auto-injector 0.3 ml IM ONCE PRN (Reason: anaphylaxis) Qty: 1 0RF Breo Ellipta 200-25 mcg/dose blister with device 1 inh INHALATION DAILY Qty: 90 3RF albuterol sulfate 0.63 mg/3 mL solution for nebulization 0.63 mg INHALATION Q4H PRN (Reason: shortness of breath or wheezing) Qty: 90 2RF albuterol sulfate 90 mcg/actuation HFA aerosol inhaler 2 puff inhalation Q6H PRN (Reason: shortness of breath or wheezing) Qty: 8.5 1RF Rx Instructions: INHALE 2 PUFFS EVERY 6 HOURS NEEDED FOR SHORTNESS OF BREATH OR WHEEZING Primary Care Provider: Kush Briones Referrals: Kush Briones MD [Primary Care Provider] - 3-5 Days if not improving Activity Restrictions/Additional Instructions: Return with fever, increased pain, new or worsening symptoms. Take [id number] medications like Tylenol or ibuprofen as needed for pain. Follow-up with your primary care provider. Print Language: Swedish Disposition Disposition: Home, Self Care
[2024-07-26] MEDS: Ondansetron 4 MG/2 ML Vial IV (23:24)
[2024-07-26 23:32] LABS: Mucous, Urine 0 SEEN /hpf (<or=2+); Red Blood Cells-Urine 0 SEEN /hpf (0-5); White Blood Cells 0 SEEN /hpf (0-5)
[2024-07-26 23:39] LABS: Absolute Lymphocyte Count 2.78 X10^3/uL (0.83-4.51); Basophil# 0.06 X10^3/uL; Basophil% 0.6 % (0-1); Eosinophils% 7.5 % (0-5); Hematocrit 40.9 % (37-47); Hemoglobin 13.3 g/dL (12.0-15.0); Lymphocyte # 2.78 X10^3/ul (0.83-4.51); Lymphocyte % 29.6 % (19-41); Mean Corp Hgb Conc 32.5 g/dL (32-36); Mean Corpuscular Hgb 28.1 pg (27.0-32.0); Mean Corpuscular Volume 86.3 fL (81-99); Mean Platelet Vol. 10.2 fl (6.2-12.0); Monocyte# 0.79 X10^3/uL; Monocyte% 8.4 % (0-10); NRBC Flagged by Analyzer 0 % (0-5); Neutrophil % 53.4 % (47-70); Platelet Count 484 K/mm3 (150-450); RBC Distribution Width CV 13.7 % (11.6-14.6); RBC Distribution Width SD 43.3 fl (35.1-43.9); Red Blood Count 4.74 M/mm3 (4.2-5.4); White Blood Count 9.4 K/mm3 (4.4-11.0)
--- OUTSIDE RECORDS SUMMARY | 2024-07-26 23:43 | XMS RPT_ITS | CCD ---
Author Organization [facility] CliniSyvt Care Team Providers Care Drum Operator Name Role Phone Ariana Bhagat MD Primary Care Provider Dr. Ariana Bhagat Primary Care Provider Dr. Ariana Bhagat Referring Provider CAMPBELL Carrington Attending Provider Ariana Bhagat MD Primary Care Provider Ariana Bhagat MD Primary Care Provider Haagen RESIDENTIAL PROGRAM COORDINATOR.Misty MARTIN Unavailable Suppan RESIDENTIAL PROGRAM COORDINATOR.PIPELINE INTEGRITY ENGINEER, Jerilyn A Unavailable Suppan RESIDENTIAL PROGRAM COORDINATOR.PIPELINE INTEGRITY ENGINEER, Jerilyn A Unavailable Suppan RESIDENTIAL PROGRAM COORDINATOR.MARIO, Jerilyn A Unavailable [phone] Evan Carrington Attending Unavailable Ariana Bhagat Referring Unavailable Ariana Bhagat Primary Care Unavailable Leola, Ariana Primary Care Unavailable Evan Carrington Attending Unavailable Ariana Bhagat Referring Unavailable Mejia Jones Attending Unavailable Ariana Bhagat Primary Care Unavailable [place], Ariana Primary Care Unavailable Elieser Valdivia Attending Unavailable Ariana Bhagat Referring Unavailable ARIANA BHAGAT Primary Care Unavailable ARIANA BHAGAT Primary Care Unavailable GEORGE CHILDS Attending Unavailable GEORGE CHILDS Admitting Unavailable LEOLA, ARIANA Amato Primary Care Unavailable BILLGEORGE BROWNING Referring Unavailable ARIANA BHAGAT Attending Unavailable LEOLA, ARIANA Amato Primary Care Unavailable LEOLA, ARIANA Amato Primary Care Unavailable LEOLA, ARIANA Amato Referring Unavailable GEORGIE HECK Attending Unavailab le ARIANA BHAGAT Primary Care Unavailable LEOLA, ARIANA Amato Primary Care Unavailable LEOLA, ARIANA Amato Referring Unavailable LEOLA, ARIANA Amato Primary Care Unavailable ARIANA BHAGAT Attending Unavailable ARIANA BHAGAT Primary Care Unavailable MISTY WILLAMS Referring Unavailable LEOLA, ARIANA Amato Primary Care Unavailable LENA LLANOS Attending Unavailabl e LEOLA, ARIANA Amato Primary Care Unavailable LENA LLANOS Attending Unavailabl e LEOLA, ARIANA Amato Attending Unavailable LEOLA, ARIANA Amato Primary Care Unavailable LEOLA, ARIANA Amato Primary Care Unavailable SARINA STEWART Attending Unavailable LEOLA, ARIANA Amato Referring Unavailable LEOLA, ARIANA Amato Primary Care Unavailable LEOLA, ARIANA mAato Primary Care Unavailable MISTY WILLAMS Attending Unavailable LEOLA, ARIANA Amato Referring Unavailable LEOLA, ARIANA Amato Primary Care Unavailable LEOLA, ARIANA Amato Primary Care Unavailable LEOLA, ARIANA Amato Referring Unavailable LEOLA, ARIANA Amato Primary Care Unavailable GEORGE CHILDS Attending Unavailable LEOLA, ARIANA Amato Primary Care Unavailable LEOLA, ARIANA Amato Primary Care Unavailable LEOLA, ARIANA Amato Referring Unavailable LEOLA, ARIANA Amato Primary Care Unavailable LEOLA, ARIANA Amato Primary Care Unavailable LADARIUS FLORES Referring Unavailable LEOLA, ARIANA Amato Attending Unavailable LEOLA, ARIANA Amato Primary Care Unavailable LEOLA, ARIANA Amato Referring Unavailable LEOLA, ARIANA Amato Primary Care Unavailable ARIANA BHAGAT Attending Unavailable LEOLA, ARIANA Amato Primary Care Unavailable LEOLA, ARIANA Amato Primary Care Unavailable GERRI MASTERSON Referring Unavailable Allergies Allergy Classification Reported Allergen(s) Allergy Type Date of Onset Reaction(s) Facility (20 sources) Cephalexin; Translations: [CEPHALEXIN] Drug Allergy 4 [facility] Work Phone: (20 sources) Latex; Translations: [LATEX] Drug Allergy 6 Rash [facility] (20 sources) Shellfish; Translations: [shellfish derived] Drug Allergy 3 Anaphylaxis [facility] (3 sources) Azithromycin Drug Allergy 0 [facility] (4 sources) Cephalexin; Translations: [cephalexin monohydrate] Drug Allergy 0 Rash [facility] (1 source) Seafood Allergy to substance 0 Anaphylaxis [facility] Work Phone: (2 sources) Iodine Drug Allergy 3 Anaphylaxis [facility] (2 sources) Fish Containing Products Allergy to substance 3 Anaphylaxis [facility] (20 sources) Pneumoc 20-Gunjan Conj-Dip Cr(Pf); Translations: [PNEUMOC 20-GUNJAN CONJ-DIP CR(PF)] Drug Intolerance 3 Other: See Comments [facility] Work Phone: (1 source) Azithromycin Drug Allergy 5 [facility] (1 source) Iodine Drug Allergy 5 [facility] (1 source) Latex Drug allergy (disorder) 5 [facility] (1 source) Pneumococcal vaccine Drug Allergy 5 [facility] (1 source) Fish Containing Products Drug allergy (disorder) 5 [facility] Medications Current Medications Medication Drug Class(es) Dates Sig (Normalized) Sig (Original) acetaminophen 500 mg oral tablet (19 sources) Start: 07-01-2024 End: 07-31-2024 take 2 tablets by mouth every six hours as needed acetaminophen (TYLENOL EXTRA STRENGTH) 500 mg tablet Take 2 tablets by mouth every 6 hours as needed for pain. 60 tablet 07/01/2024 10:56 AM EDT 07/01/2024 07/31/2024 Active [id number] 200 actuat albuterol 0.09 mg/actuat metered dose inhaler (20 sources) beta2-Adrenergic Agonist Start: 01-30-2023 End: 12-22-2023 take 2 puff(s) by inhalation every four hours as needed for wheezing albuterol HFA (PROVENTIL HFA, VENTOLIN HFA) 90 mcg/actuation inhaler Inhale 2 Puffs as instructed every 4 hours as needed for wheezing/shortness of breath. 1 Each 3 12/22/2023 Active Start: 06-20-2021 End: 09-07-2022 take 2 puff(s) by inhalation every four hours as needed for wheezing albuterol HFA (VENTOLIN HFA) 90 mcg/actuation inhaler Indications: Mild intermittent asthma without complication Inhale 2 Puffs as instructed every 4 hours as needed for wheezing/shortness of breath. 3 Each 3 09/07/2022 Active Start: 09-02-2020 End: 09-07-2022 take 2.5 mg by inhalation every six hours as needed albuterol (PROVENTIL) 2.5 mg /3 mL (0.083 %) nebulizer solution Use 3 mL via nebulizer every 6 hours as needed for wheezing/shortness of breath. Use over 5-15minutes. 20 mL 6 09/07/2022 Active Start: 12-24-2019 End: 07-14-2020 take 2 puff(s) by inhalation every six hours as needed for wheezing Albuterol Sulfate Discontinued 0 .ROUTE .COMPLEX 8.April 06, 2020 9:55am July 14, 2020 10:15am INHALE 2 PUFFS EVERY 6 HOURS NEEDED FOR SHORTNESS OF BREATH OR WHEEZING Start: 06-21-2019 End: 12-31-2019 take 0.63 mg by inhalation every four hours Albuterol Sulfate Active 0.63 MG INHALATION Q4H 90 December 31, 2019 1:10pm Start: 05-19-2019 End: 04-06-2020 take 1 puff(s) by inhalation every six hours Albuterol Sulfate (Ventolin Hfa) 90 mcg/actuation HFA aerosol inhaler Discontinued 2 PUFF INHALATION EVERY 6 HOURS 8.5 March 08, 2020 1:46pm April 06, 2020 9:55am Start: 05-14-2019 End: 05-19-2019 Albuterol Sulfate Discontinu ed 0 .ROUTE .COMPLEX 17 May 14, 2019 9:07am May 19, 2019 12:03pm INHALE 2 PUFFS INTO THE LUNGS EVERY 6 HORUS NEEDED FOR SHORTNESS OF BREATH Start: 09-17-2018 End: 05-14-2019 take 1 puff(s) by inhalation every six hours Albuterol Sulfate (Ventolin Hfa) 90 mcg/actuation HFA aerosol inhaler Discontinued 2 PUFF INHALATION EVERY 6 HOURS 8.5 April 23, 2019 1:47pm May 14, 2019 9:07am Start: 05-30-2018 End: 05-30-2018 Albuterol Sulfate Discontinu ed 2 PUFF INHALATION NEEDED 8.May 30, 2018 9:19am May 30, 2018 9:22am Start: 05-28-2018 End: 06-18-2021 take 2 puff(s) by inhalation every four hours as needed for wheezing albuterol HFA (VENTOLIN HFA) 90 mcg/actuation inhaler Inhale 2 Puffs as instructed every 4 hours as needed for Wheezing/Shortness of Breath. 3 Inhaler 3 05/28/2018 06/18/2021 Discontinued Start: 05-24-2018 End: 05-30-2018 Albuterol Sulfate Discontinu ed 2 PUFF INHALATION NEEDED May 24, 2018 12:00am May 30, 2018 9:21am Start: 04-26-2018 End: 05-21-2018 take 1 puff(s) by inhalation every four hours as needed Albuterol Sulfate Discontinued 2 PUFF INHALATION EVERY 4 HOURS NEEDED 1 April 26, 2018 12:00am May 21, 2018 2:42pm Start: 02-01-2018 End: 05-21-2018 take 1 puff(s) by inhalation every four hours as needed Albuterol Sulfate Discontinued 1 - 2 PUFF INHALATION EVERY 4 HOURS NEEDED 8.5 February 01, 2018 9:32am May 21, 2018 2:42pm Start: 02-01-2018 End: 05-21-2018 take 0.63 mg by inhalation every four hours Albuterol Sulfate Discontinued 0.63 MG INHALATION Q4H 90 February 01, 2018 9:32am May 21, 2018 2:42pm Start: 04-18-2013 End: 02-01-2018 take 1 puff(s) by inhalation every four hours as needed Albuterol Sulfate Discontinued 1 - 2 PUFF INHALATION EVERY 4 HOURS NEEDED April 18, 2013 12:00am February 01, 2018 9:33am Comment on above: Inhale 2 Puffs as in structed every 4 hours as needed for Wheezing/Shortness of Breath. Use 3 mL via nebuliz er every 6 hours as needed for wheezing/shortness of breath. Use over 5-15minutes. ascorbic acid 2000 mg oral tablet (20 sources) Vitamin C take 2000 mg by mouth once daily ascorbic acid (RANDA-C ORAL) Take 2,000 mg by mouth once daily. Active Comment on above: Take 2,000 mg by amada th. Take 2,000 mg by amada th once daily. atorvastatin 20 mg oral tablet (20 sources) HMG-CoA Reductase Inhibitor Start : 09-15 End: 12-21 take 1 tablet by mouth once daily at bedtime for hyperlipidemia atorvastatin (LIPITOR) 20 mg tablet Indications: Hyperlipidemia LDL goal Take 1 tablet by mouth daily at bedtime. For cholesterol. 90 tablet 3 12/22/2023 12/21/2024 Active Comment on above: Take 1 tablet by amada th daily at bedtime. For cholesterol. azithromycin 250 mg oral tablet (6 sources) Macrolide Antimicrobial Start : 05-11 End: 05-16 azithromycin (ZITHROMAX Z-CASSANDRA) 250 mg tablet Take 2 tablets day one, then, 1 tablet daily until gone. 6 tablet 0 05/11/2022 05/16/2022 Active Start: 12-11-2018 End: 01-20-2019 Azithromycin Discontinued 25 0 MG PO daily December 11, 2018 1:00am January 20, 2019 6:49pm 2 tablets today, then 1 tablet daily on days 2 through 5 Comment on above: Take 2 tablets day o ne, then, 1 tablet daily until gone. benzonatate 100 mg oral capsule (20 sources) Non-narcotic Antitussive Start: End: take 1 capsule by mouth three times daily as needed for cough benzonatate (TESSALON PERLES) 100 mg capsule Indications: Viral syndrome Take 1 capsule by mouth three times a day as needed for cough. 21 capsule 06/25/2023 02/05/2024 Discontinued (Course of therapy completed) Start: 04-22-2019 End: 12-09-2022 take 1 capsule by mouth three times daily Benzonatate (Tessalon Perles) 100 mg capsule Discontinued 100 MG PO THREE TIMES A DAY April 22, 2019 12:00am December 09, 2022 8:57pm betamethasone 0.5 mg/ml / clotrimazole 10 mg/ml topical cream (20 sources) Azole Antifungal, Corticosteroid Start: 01-19-2022 End: 06-19-2024 clotrimazole-betamethasone (LOTRISONE) cream APPLY TO AFFECTED AREA TWICE A DAY 08/23/2022 06/19/2024 Discontinued Comment on above: Apply 1 application to affected area twice daily. APPLY TO AFFECTED AR EA TWICE A DAY codeine phosphate 2 mg/ml / guaiFENesin 20 mg/ml oral solution (1 source) Opioid Agonist Start: 04-22-2019 take 1 mL by mouth every six hours Codeine-Guaifenesin Active 5 ML PO EVERY 6 HOURS April 22, 2019 12:00am cyclobenzaprine hydrochloride 10 mg oral tablet (20 sources) Muscle Relaxant Start: 05-10-2023 take 1 tablet by mouth every eight hours as needed cyclobenzaprine (FLEXERIL) 10 mg tablet Take 1 tablet by mouth three times a day as needed for muscle spasm. 21 tablet 05/10/2023 Active Comment on above: Take 1 tablet by amada th three times a day as needed for muscle spasm. docusate sodium 100 mg oral capsule (19 sources) Start: 07-01-2024 End: 07-31-2024 take 1 capsule by mouth twice daily docusate sodium (COLACE) 100 mg capsule Take 1 capsule by mouth two times a day. 60 capsule 07/01/2024 10:56 AM EDT 07/01/2024 07/31/2024 Active doxycycline hyclate 100 mg oral capsule (20 sources) Tetracycline-clas s Drug Start: 07-10-2024 End: 07-20-2024 take 1 capsule by mouth twice daily doxycycline hyclate (VIBRAMYCIN) 100 mg capsule Indications: Cellulitis of left leg Take 1 capsule by mouth two times a day for 10 days. 20 capsule 07/10/2024 07/20/2024 Active Start: 02-05-2024 End: 02-10-2024 take 1 tablet by mouth twice daily doxycycline (VIBRA-TABS) 100 mg tablet Take 1 tablet by mouth two times a day for 5 days. 10 tablet 02/05/2024 02/10/2024 Active Start: 08-07-2018 End: 08-21-2018 take 100 mg by mouth twice daily Doxycycline Monohydrate Discontinued 100 MG PO TWICE A DAY 14 August 07, 2018 12:00am August 07, 2018 9:52am enteric contrast (will be provided with radiology test) (1 source) Start: 12-06-2021 End: 12-07-2021 enteric contrast (will be provided with radiology test) Indications: Terminal ileitis with complication (HCC) For CT ENTEROGRAPHY W IVCON order Administer, As Directed One Time Only, via Oral, Rectal, both Oral and Rectal, Enteric Tube, Stoma or Indwelling Catheter, Enteric Contrast as designated per enteric contrast guidelines. 1 Each 0 12/06/2021 12/07/2021 Active Comment on above: For CT ENTEROGRAPHY W IVCON order Administer, As Directed One Time Only, via Oral, Rectal, both Oral and Rectal, Enteric Tube, Stoma or Indwelling Catheter, Enteric Contrast as designated per enteric contrast guidelines. [id number] 0.3 ml EPINEPHrine 1 mg/ml auto-injector (20 sources) alpha-Adrenergic Agonist, beta-Adrenergic Agonist, Catecholamine Start: 01-30-2023 EPINEPHrine (EPIP EN) 0.3 mg/0.3 mL auto-injector Indications: Shellfish allergy 0.3 ml subcutaneous as needed for severe allergic reaction/may substitute. 2 Each 3 01/30/2023 Active Start: 09-02-2020 End: 06-08-2022 EPINEPHrine (EPIPEN) 0.3 mg/ 0.3 mL auto-injector Indications: Shellfish allergy 0.3 ml subcutaneous as needed for severe allergic reaction/may substitute. 2 Each 3 06/08/2022 Active Start: 09-27-2018 End: 10-21-2019 inject 1 mL by intramuscular injection once Epinephrine Discontinued 0.3 ML IM ONCE 1 September 27, 2018 3:37pm October 21, 2019 1:17pm Start: 09-17-2018 End: 09-27-2018 inject 1 mL by intramuscular injection once Epinephrine Discontinued 0.1 ML IM ONCE 2 September 24, 2018 4:44pm September 27, 2018 3:28pm Comment on above: 0.3 ml subcutaneous as needed for severe allergic reaction 0.3 ml subcutaneous as needed for severe allergic reaction/may substitute. ergocalciferol 1.25 mg oral capsule (20 sources) Provitamin D2 Compound Start: 09-06-19 End: 08-25-19 23 take 1 capsule by mouth every week ergocalciferol 50,000 unit capsule (VITAMIN D2, DRISDOL) Indications: Vitamin D deficiency Take 1 capsule by mouth one time a week. 12 capsule 3 08/24/2022 Active Comment on above: [facility] 30 actuat fluticasone furoate 0.2 mg/actuat / vilanterol 0.025 mg/actuat dry powder inhaler (20 sources) Corticosteroid, beta2-Adrenergic Agonist Start: 06-21-19 End: 05-07-19 24 fluticasone-vilantero l (BREO ELLIPTA) 200-25 mcg/dose inhaler Indications: Mild intermittent asthma without complication (HCC) Inhale 1 Inhalation as instructed once daily. Inhale one puff once daily. DO NOT CLICK OPEN UNTIL READY FOR DOSE 60 Each 05/07/2023 Active Start: 03-19-2020 End: 06-18-2021 fluticasone-vilanterol (BREO ELLIPTA) 200-25 mcg/dose inhaler Indications: Mild intermittent asthma without complication Inhale 1 Inhalation as instructed once daily. Inhale one puff once daily. DO NOT CLICK OPEN UNTIL READY FOR DOSE 60 Each 03/19/2020 06/18/2021 Discontinued Start: 10-21-2019 Fluticasone Fu roate-Vilanterol (Breo Ellipta) 200-25 mcg/dose blister with device Active 1 INH INHALATION DAILY October 21, 2019 1:16pm Start: 09-17-2018 End: 10-21-2019 Fluticasone Furoate-Vilanter ol (Breo Ellipta) 200-25 mcg/dose blister with device Discontinued 1 INH INHALATION DAILY September 17, 2018 12:00am October 21, 2019 1:17pm Start: 05-24-2018 End: 08-21-2018 take 1 puff(s) by inhalation once daily Fluticasone Furoate-Vilanterol Discontinued 1 PUFF INHALATION DAILY May 24, 2018 12:00am August 21, 2018 3:50pm Comment on above: Inhale 1 Inhalation as instructed once daily. Inhale one puff once daily. DO NOT CLICK OPEN UNTIL READY FOR DOSE hydrocortisone 25 mg/ml topical cream (3 sources) Corticosteroid Start: 023 End: hydrocortisone (ANUSOL-HC) 2.5 % rectal cream Indications: Hemorrhoids, unspecified hemorrhoid type by RECTAL route two times a day. 28 g 1 01/08/2023 02/07/2023 Active Comment on above: by RECTAL route two times a day. ibuprofen 600 mg oral tablet (19 sources) Nonsteroidal Anti-inflammatory Drug Start: 025 End: 025 take 1 tablet by mouth every six hours as needed ibuprofen (MOTRIN) 600 mg tablet Take 1 tablet by mouth every 6 hours as needed for pain. Take with food. 60 tablet 07/01/2024 10:56 AM EDT 07/01/2024 07/31/2024 Active methocarbamol 750 mg oral tablet (19 sources) Muscle Relaxant Start: End: take 1 tablet by mouth every eight hours as needed methocarbamol (ROBAXIN) 750 mg tablet Take 1 tablet by mouth three times a day as needed (pain/muscle spasm). 90 tablet 07/01/2024 3:01 PM EDT 07/01/2024 07/31/2024 Active molnupiravir 200 mg capsule (2 sources) Start: 023 End: take 4 capsules by mouth twice daily molnupiravir 200 mg capsule Indications: COVID Take 4 capsules by mouth two times a day for 5 days. 40 capsule 0 12/27/2022 01/01/2023 Active Start: 12-27-2022 End: 12-27-2022 take 4 capsules by mouth twice daily molnupiravir 200 mg capsule Indications: COVID Take 4 capsules by mouth two times a day for 5 days. 40 capsule 0 12/27/2022 12/27/2022 Discontinued Comment on above: Take 4 capsules by out two times a day for 5 days. multivitamin tablet (20 sources) take 1 tablet by mouth once daily multivitamin tablet Take 1 tablet by mouth once daily. Active take 1 tablet by mouth once sheron y multivitamin tablet Take 1 tablet by mouth once daily. 0 Active Comment on above: Take 1 tablet by amada th once daily. mupirocin 0.02 mg/mg topical ointment (7 sources) RNA Synthetase Inhibitor Antibacterial Start: End: mupirocin (BACTROBAN) 2 % ointment Apply to affected area three times a day for 5 days. 30 g 02/05/2024 02/10/2024 Active naproxen 500 mg oral tablet (1 source) Nonsteroidal Anti-inflammatory Drug Start: take 500 mg by mouth at mealtime Naproxen Active 500 MG PO 2 to 3 times per day 60 September 09, 2018 12:00am administer with food or milk Nebulizer (20 sources) Start: 016 Nebulizer 1 Each once daily. NEBULIZER FOR HOME USE. DX: asthma J 45.909 1 Device 0 11/26/2015 Active Comment on above: 1 Each once daily. N EBULIZER FOR HOME USE. DX: asthma J 45.909 nystatin [id number] unt/ml topical cream (20 sources) Polyene Antifungal Start: nystatin (MYCOSTATIN) cream Indications: Dermatitis Apply 1 application to affected area two times a day. 45 g 09/14/2023 Active ondansetron 4 mg disintegrating oral tablet (14 sources) Serotonin-3 Receptor Antagonist Start: take 1 tablet by mouth every eight hours as needed for nausea and nausea ondansetron orally disintegrating (ZOFRAN ODT) 4 mg disintegrating tablet Indications: Nausea Take 1 tablet by mouth every 8 hours as needed for nausea/vomiting. 10 tablet 07/08/2024 Active oxyCODONE hydrochloride 5 mg oral tablet (6 sources) Opioid Agonist Start: End: take 1 tablet by mouth every eight hours as needed for pain oxyCODONE IR (ROXICODONE) 5 mg immediate release tablet Indications: Acute post-operative pain Take 1 tablet by mouth every 8 hours as needed for pain for up to 7 days. 10 tablet 07/01/2024 10:56 AM EDT 07/01/2024 07/08/2024 Active polyethylene glycol 3350 78289 mg powder for oral solution (20 sources) Osmotic Laxative Start: End: polyethylene glycol 3350 (MIRALAX) 17 gram/dose powder Indications: Acute constipation Take 17 g by mouth once daily. Dissolve dose in 4 - 8 ounces of liquid and take as directed. 510 g 11 08/07/2022 08/07/2023 Active Comment on above: Take 17 g by mouth o nce daily. Dissolve dose in 4 - 8 ounces of liquid and take as directed. predniSONE 10 mg oral tablet (20 sources) Start: End: take 4 tablets by mouth once daily predniSONE (DELTASONE) 10 mg tablet Take 4 tablets by mouth once daily for 5 days. 20 tablet 02/05/2024 02/10/2024 Active Start: 12-28-2023 End: 01-09-2024 predniSONE (DELTASONE) 10 mg tablet Indications: Flank pain , Right-sided low back pain with right-sided sciatica, unspecified chronicity Take 4 tabs daily x 3 days, then 3 tabs x 3 days, 2 tabs x 3 days, then 1 tab x3 days with food. 30 tablet 12/28/2023 01/09/2024 Active Start: 07-28-2023 End: 08-09-2023 predniSONE (DELTASONE) 10 mg tablet Take 4 tabs daily x 3 days, then 3 tabs x 3 days, 2 tabs x 3 days, then 1 tab x3 days with food. 30 tablet 0 07/28/2023 08/09/2023 Active Start: 07-08-2023 End: 07-13-2023 take 2 tablets by mouth once daily predniSONE (DELTASONE) 20 mg tablet Indications: Mild intermittent asthma with acute exacerbation Take 2 tablets by mouth once daily for 5 days. 10 tablet 0 07/08/2023 07/13/2023 Active Start: 05-09-2023 End: 05-14-2023 take 2 tablets by mouth once daily predniSONE (DELTASONE) 20 mg tablet Indications: URI, acute Take 2 tablets by mouth once daily for 5 days. 10 tablet 0 05/09/2023 05/14/2023 Active Start: 12-09-2022 take 20 mg by mouth twice sheron y Prednisone Active 20 MG PO TWICE A DAY December 09, 2022 12:00am Start: 08-21-2022 End: 07-28-2023 predniSONE (DELTASONE) 10 mg tablet Take 10 mg by mouth as needed. 0 08/21/2022 07/28/2023 Discontinued Start: 08-21-2022 End: 09-02-2022 Prednisone Discontinued 10 M G PO daily 03 02August 21, 2022 12:00am September 02, 2022 12:11am Take 4 tabs once daily days 1-3 3 tabs once daily days 4-6 2 tabs once daily days 7-9 and 1 tab once daily days 10-12. Start: 04-22-2019 Prednisone Act dinah 0 PO daily April 22, 2019 12:00am 4 tabs for 3 days, then 3 tabs for 3 days, then 2 tabs for 3 days, then 1 tab for 3 days PO QDAY; administer with food or milk Start: 03-18-2019 End: 03-21-2019 take 20 mg by mouth once daily Prednisone Discontinued 20 MG PO DAILY 6 3 March 18, 2019 1:00am March 21, 2019 1:09am Start: 12-11-2018 End: 01-20-2019 take 1 tablet by mouth once daily prednisone 50 mg tablet Discontinued 50 MG PO DAILY December 11, 2018 1:00am January 20, 2019 6:50pm Start: 11-07-2018 End: 12-11-2018 take 60 mg by mouth once daily at mealtime Prednisone Discontinued 60 MG PO DAILY November 07, 2018 12:00am December 11, 2018 6:38pm With food Start: 09-17-2018 End: 09-17-2018 take 1 tablet by mouth once prednisone 5 mg tablets in a dose pack Discontinued 5 MG PO per package directions September 17, 2018 12:00am September 17, 2018 9:33am Start: 06-20-2016 End: 05-21-2018 take 40 mg by mouth once daily at mealtime Prednisone Discontinued 40 MG PO daily April 05, 2018 5:08pm May 21, 2018 2:42pm administer with food or milk Comment on above: Take 10 mg by mouth as needed. Take 2 tablets by mo [facility] once daily for 5 days. Semaglutide (2 sources) Start: 07-23-2022 Semaglutide (Ozempic) 0.25 mg or 0.5 mg (2 mg/3 mL) pen injector Active 0.25 MG SC EVERY WEEK July 23, 2022 12:00am semaglutide, weight loss, (WEGOVY) 0.25 mg/0.5 mL pen injector (7 sources) Start: 07-18-2024 End: 08-15-2024 semaglutide, weight loss, (WEGOVY) 0.25 mg/0.5 mL pen injector Indications: Class 3 severe obesity with body mass index (BMI) of 45.0 to 49.9 in adult, unspecified obesity type, unspecified whether serious comorbidity present (HCC) Inject 0.25 mg subcutaneously one time a week for 28 days. 2 mL 07/18/2024 08/15/2024 Active Start: 09-05-2021 End: 09-16-2021 inject 0.5 mL by subcutaneous injection every week semaglutide, weight loss, (WEGOVY) 0.25 mg/0.5 mL pen injector Indications: Obesity, Class III, BMI 40-49.9 (morbid obesity) (HCC) Inject 0.5 mL subcutaneously one time a week. 4 Each 0 09/05/2021 09/16/2021 Discontinued Start: 09-05-2021 inject 0.5 mL by sub cutaneous injection every week semaglutide, weight loss, (WEGOVY) 0.25 mg/0.5 mL pen injector Indications: Obesity, Class III, BMI 40-49.9 (morbid obesity) (HCC) Inject 0.5 mL subcutaneously one time a week. 4 Each 0 09/05/2021 Active Comment on above: Inject 0.5 mL subcut aneously one time a week. sennosides, fdc 8.6 mg oral tablet (1 source) Start: End: take 1 tablet by mouth twice daily senna (SENNA LAX) 8.6 mg tab Take 1 tablet by mouth twice daily for 3 days. 6 tablet 0 06/27/2022 06/30/2022 Active Comment on above: Take 1 tablet by amada twice daily for 3 days. Surgical Lubricant Jelly gel (20 sources) Start: Surgical Lubricant Jelly gel Indications: Other intra-abdominal and pelvic swelling, mass and lump For MRI Female Pelvis, MRI department to provide. Administer intra-vaginal Surgilube immediately prior the MRI procedure (total amount to patient toleranace). 3 g 02/07/2024 Active tirzepatide, weight loss (ZEPBOUND) 2.5 mg/0.5 mL pen injector (16 sources) Start: 024 End: 024 inject 2.5 mg by subcutaneous injection every week tirzepatide, weight loss (ZEPBOUND) 2.5 mg/0.5 mL pen injector Inject 2.5 mg subcutaneously one time a week. 2 mL 5 07/16/2023 07/20/2023 Discontinued (Adjust Sig - Block E-Cancel) Start: 07-16-2023 End: 01-12-2024 inject 2.5 mg by subcutaneous injection every week tirzepatide, weight loss (ZEPBOUND) 2.5 mg/0.5 mL pen injector Inject 2.5 mg subcutaneously one time a week. 2 mL 5 07/16/2023 01/12/2024 Active Start: 07-16-2023 End: 07-16-2023 inject 2.5 mg by subcutaneous injection every week tirzepatide, weight loss (ZEPBOUND) 2.5 mg/0.5 mL pen injector Inject 2.5 mg subcutaneously one time a week. 6 mL 1 07/16/2023 07/16/2023 Discontinued Start: 07-11-2023 End: 07-16-2023 inject 2.5 mg by subcutaneous injection every week tirzepatide, weight loss (ZEPBOUND) 2.5 mg/0.5 mL pen injector Inject 2.5 mg subcutaneously one time a week. 6 mL 1 07/11/2023 07/16/2023 Discontinued Start: 04-24-2023 End: 10-21-2023 inject 2.5 mg by subcutaneous injection every week tirzepatide, weight loss (ZEPBOUND) 2.5 mg/0.5 mL pen injector Inject 2.5 mg subcutaneously one time a week. 2 mL 5 04/24/2023 10/21/2023 Active Comment on above: Inject 2.5 mg subcutaneously one time a week. tirzepatide, weight loss (ZEPBOUND) 7.5 mg/0.5 mL pen injector (20 sources) Start: End: inject 7.5 mg by subcutaneous injection every week tirzepatide, weight loss (ZEPBOUND) 7.5 mg/0.5 mL pen injector Inject 7.5 mg subcutaneously one time a week. 2 mL 5 11/23/2023 06/19/2024 Discontinued Start: 11-23-2023 End: 05-21-2024 inject 7.5 mg by subcutaneous injection every week tirzepatide, weight loss (ZEPBOUND) 7.5 mg/0.5 mL pen injector Inject 7.5 mg subcutaneously one time a week. 2 mL 5 11/23/2023 05/21/2024 Active triamcinolone acetonide 1 mg/ml topical cream (4 sources) Corticosteroid Start: 08-20-2022 End: 09-03-2022 triamcinolone acetonide (KENALOG) 0.1 % cream Indications: Local reaction to pneumococcal vaccine, initial encounter Apply 1 application to affected area twice daily for 14 days. 45 g 0 08/20/2022 09/03/2022 Active Comment on above: Apply 1 application to affected area twice daily for 14 days. Completed/Discontinued Medications Medication Drug Class(es) Dates Sig (Normalized) Sig (Original) albuterol 0.833 mg/ml / ipratropium bromide 0.167 mg/ml inhalation solution (2 sources) Anticholinergic, beta2-Adrenergic Agonist Start: 02-05-2024 End: 02-05-2024 ipratropium-albute rol 3 mL nebulizer solution (DUONEB) Start: 02-05-2024 End: 02-05-2024 take 1 dose by inhalation once 3 mL, INHALATION, ONCE, 1 dose, On Sun02/05/24 at 0930, PROTECT FROM LIGHT. The unit-dose vial should remain stored in the protective foil pouch until time of use. amoxicillin 500 mg oral capsule (3 sources) Penicillin-class Antibacterial Start: 03-18-2019 End: 03-28-2019 take 500 mg by mouth twice daily Amoxicillin Discontinued 500 MG PO TWICE A DAY 24 11March 18, 2019 1:00am March 28, 2019 1:09am cholecalciferol 0.05 mg oral tablet (20 sources) Vitamin D Start: 09-02-2020 End: 09-05-2021 take 1 tablet by mouth once daily cholecalciferol (VITAMIN D-3) 50 mcg (2,000 unit) tablet Take 1 tablet by mouth once daily. 30 tablet 11 09/02/2020 09/05/2021 Discontinued (Other) Start: 09-17-2018 End: 06-10-2019 take 1 capsule by mouth every week Cholecalciferol (Vitamin D3) Discontinued 0 .ROUTE .COMPLEX March 04, 2019 12:28pm June 10, 2019 8:47am TAKE ONE CAPSULE BY MOUTH EVERY WEEK Start: 02-01-2018 End: 05-21-2018 take 1 capsule by mouth once daily cholecalciferol (vitamin D3) 1,000 unit capsule Discontinued 1000 UNIT PO DAILY February 01, 2018 9:32am May 21, 2018 2:42pm Comment on above: Take 1 tablet by amada once daily. crisaborole 0.02 mg/mg topical ointment (3 sources) Start: 018 End: 019 Crisaborole (Eucrisa) 2 % ointment Discontinued 1 APPLIC TOPICAL TWICE A DAY 60 February 01, 2018 1:00am May 21, 2018 2:42pm apply thin layer to the affected area 0.5 ml dulaglutide 1.5 mg/ml auto-injector (19 sources) GLP-1 Receptor Agonist Start: 022 End: 023 inject 0.75 mg by subcutaneous injection every week dulaglutide (TRULICITY) 0.75 mg/0.5 mL pen injector Indications: Obesity, Class III, BMI 40-49.9 (morbid obesity) (HCC) Inject 0.75 mg subcutaneously one time a week. Inject dose once per week. Discard Pen After 4 Each 3 01/05/2022 03/20/2022 Discontinued (Other) Comment on above: Inject 0.75 mg subcu taneously one time a week. Inject dose once per week. Discard Pen After Fluticasone Propion-Salmeterol (6 sources) Corticosteroid, beta2-Adrenergic Agonist Start: 018 End: 019 Fluticasone Propion-Salmeterol Discontinued 1 INH INHALATION TWICE A DAY 60 February 01, 2018 9:31am May 21, 2018 2:42pm Start: 04-18-2013 End: 02-01-2018 take 1 puff(s) by inhalation twice daily Fluticasone Propion-Salmeterol Discontinued 1 PUFF INHALATION TWICE A DAY April 18, 2013 12:00am February 01, 2018 9:33am hydrocortisone 10 mg/ml / neomycin 3.5 mg/ml / polymyxin b 27966 unt/ml otic suspension (3 sources) Aminoglycoside Antibacterial, Polymyxin-class Antibacterial, Corticosteroid Start: 04-26-2018 End: 05-03-2018 Popraerp-Ldmvuyoer-Yc Discontinued 4 DRP OT 4 TIMES DAILY 10 7 April 26, 2018 12:00am May 03, 2018 12:08am iv contrast (will be provided with radiology test) (6 sources) Start: 02-07-2024 End: 02-08-2024 iv contrast (will be provided with radiology test) Indications: Other intra-abdominal and pelvic swelling, mass and lump MRI Female Pelvis Inject, intravenously, once for 1 dose. No IV access, insert saline lock prior to the beginning of sedation, infusion, injection of imaging exam. Discontinue saline lock post exam. If Pt has a central line or IVAD, may access for administration according to line specific nursing protocol. Once exam is complete flush line and de-access according to line specific nursing protocol in the MR contrast administration guidelines link. 1 Each 02/07/2024 02/08/2024 Start: 02-07-2024 End: 02-08-2024 iv contrast (will be provide d with radiology test) Indications: Other intra-abdominal and pelvic swelling, mass and lump MRI Female Pelvis Inject, intravenously, once for 1 dose. No IV access, insert saline lock prior to the beginning of sedation, infusion, injection of imaging exam. Discontinue saline lock post exam. If Pt has a central line or IVAD, may access for administration according to line specific nursing protocol. Once exam is complete flush line and de-access according to line specific nursing protocol in the MR contrast administration guidelines link. 1 Each 02/07/2024 02/08/2024 Active Start: 12-24-2023 End: 12-25-2023 iv contrast (will be provide d with radiology test) CT Urogram WO/W Inject, intravenously, once for 1 dose.No IV access, insert saline lock prior to the beginning of sedation, infusion, injection of imaging exam. Discontinue saline lock post exam. If Pt. has a central line or IVAD, may access for administration according to line specific nursing protocol. Once exam is complete flush line and de-access according to line specific nursing protocol in the CT contrast administration guidelines link. 1 Each 12/24/2023 12/25/2023 Start: 12-06-2021 End: 12-07-2021 iv contrast (will be provide d with radiology test) Indications: Terminal ileitis with complication (HCC) CT Enterography W Inject, intravenously, once for 1 dose.No IV access, insert saline lock prior to the beginning of sedation, infusion, injection of imaging exam. Discontinue saline lock post exam. If Pt. has a central line or IVAD, may access for administration according to line specific nursing protocol. Once exam is complete flush line and de-access according to line specific nursing protocol in the CT contrast administration guidelines link. 1 Each 0 12/06/2021 12/07/2021 Active Comment on above: CT Enterography W In ject, intravenously, once for 1 dose.No IV access, insert saline lock prior to the beginning of sedation, infusion, injection of imaging exam. Discontinue saline lock post exam. If Pt. has a central line or IVAD, may access for administration according to line specific nursing protocol. Once exam is complete flush line and de-access according to line specific nursing protocol in the CT contrast administration guidelines link. loratadine 10 mg oral tablet (6 sources) Start: 02-02-20 18 End: 05-22-19 19 take 1 tablet by mouth once daily Loratadine (Claritin) 10 mg tablet Discontinued 10 MG PO DAILY 90 February 01, 2018 9:31am May 21, 2018 2:42pm omeprazole 20 mg delayed release oral capsule (11 sources) Proton Pump Inhibitor Start: 10-15-19 End: 12-21-19 take 1 capsule by mouth once daily omeprazole (PRILOSEC) 20 mg capsule Take 1 capsule by mouth once daily. 30 capsule 1 10/14/2021 12/20/2021 Discontinued Comment on above: Take 1 capsule by mo [facility] once daily. orlistat 120 mg oral capsule (3 sources) Intestinal Lipase Inhibitor Start: 04-27-19 23 End: 05-10-19 23 take 1 capsule by mouth three times daily at mealtime orlistat (XENICAL) 120 mg capsule Take 1 capsule by mouth three times daily with meals. 90 capsule 1 04/26/2022 05/09/2022 Discontinued Comment on above: Take 1 capsule by mo [facility] three times daily with meals. pedi multivit no.205/fluoride (CPEXR-FHI-RCKA ORAL) (20 sources) End: 09-08-19 pedi multivit no.205/fluoride (AURPK-JJO-OOVW ORAL) Take by mouth. 0 09/07/2022 Discontinued (Other) pedi multivit no .205/fluoride (AKJXO-XQN-MMAK ORAL) Take by mouth. 0 Active Comment on above: Take by mouth. phenazopyridine hydrochloride 200 mg oral tablet (4 sources) Start: 023 End: take 1 tablet by mouth every eight hours as needed phenazopyridine (PYRIDIUM) 200 mg tablet Take 1 tablet by mouth three times a day as needed. 6 tablet 0 12/15/2022 12/27/2022 Discontinued Comment on above: Take 1 tablet by amada th three times a day as needed. polyethylene glycol 3350 098037 mg / potassium chloride 2970 mg / sodium bicarbonate 6740 mg / sodium chloride 5860 mg / sodium sulfate 09471 mg powder for oral solution (1 source) Osmotic Laxative Start: End: peg 3350-Electrolytes (GOLYTELY) 236-22.74-6.74 -5.86 gram suspension Indications: Thrombocytosis Take 4,000 mL by mouth one time only for 1 dose. Refer to printed prep instructions from your provider. 4000 mL 0 10/14/2021 10/14/2021 Discontinued (Course of therapy completed) Comment on above: Take 4,000 mL by amada th one time only for 1 dose. Refer to printed prep instructions from your provider. 0.25 mg, 0.5 mg dose 1.5 ml semaglutide 1.34 mg/ml pen injector (20 sources) Start: End: semaglutide (OZEMPIC) 0.25 mg or 0.5 mg(2 mg/1.5 mL) pen Indications: Obesity, Class III, BMI 40-49.9 (morbid obesity) (HCC) Inject 0.25 mg subcutaneously one time a week. 1 mL 3 11/13/2022 04/24/2023 Discontinued Start: 05-09-2022 End: 10-25-2022 semaglutide (OZEMPIC) 0.25 m g or 0.5 mg(2 mg/1.5 mL) pen Indications: Obesity, Class III, BMI 40-49.9 (morbid obesity) (HCC) Inject 0.25 mg subcutaneously one time a week. 1 mL 0 09/07/2022 10/07/2022 Active Comment on above: Inject 0.25 mg subcu taneously one time a week. semaglutide (OZEMPIC) 0.25 mg or 0.5 mg (2 mg/3 mL) pen (12 sources) Start: 07-15-2024 End: 07-18-2024 semaglutide (OZEMPIC) 0.25 mg or 0.5 mg (2 mg/3 mL) pen Indications: Class 3 severe obesity with body mass index (BMI) of 45.0 to 49.9 in adult, unspecified obesity type, unspecified whether serious comorbidity present (HCC) Inject 0.5 mg subcutaneously one time a week for 28 days. After starting 0.25 for one week. 3 mL 07/15/2024 07/18/2024 Discontinued Start: 07-15-2024 End: 07-18-2024 inject 0.5 mg by subcutaneous injection every week semaglutide (OZEMPIC) 0.25 mg or 0.5 mg (2 mg/3 mL) pen Indications: Class 3 severe obesity with body mass index (BMI) of 45.0 to 49.9 in adult, unspecified obesity type, unspecified whether serious comorbidity present (HCC) Inject 0.5 mg subcutaneously one time a week. 3 mL 2 07/15/2024 07/18/2024 Discontinued Start: 07-15-2024 End: 08-12-2024 semaglutide (OZEMPIC) 0.25 m g or 0.5 mg (2 mg/3 mL) pen Indications: Class 3 severe obesity with body mass index (BMI) of 45.0 to 49.9 in adult, unspecified obesity type, unspecified whether serious comorbidity present (HCC) Inject 0.5 mg subcutaneously one time a week for 28 days. After starting 0.25 for one week. 3 mL 07/15/2024 08/12/2024 Active Start: 07-15-2024 End: 10-13-2024 inject 0.5 mg by subcutaneous injection every week semaglutide (OZEMPIC) 0.25 mg or 0.5 mg (2 mg/3 mL) pen Indications: Class 3 severe obesity with body mass index (BMI) of 45.0 to 49.9 in adult, unspecified obesity type, unspecified whether serious comorbidity present (HCC) Inject 0.5 mg subcutaneously one time a week. 3 mL 2 07/15/2024 10/13/2024 Active 1000 ml sodium chloride 9 mg/ml injection (1 source) Start: 12-24-2023 End: 12-24-2023 0.9 % sodium chloride (NACL 0.9%) infusion Administer at rate defined per CT contrast administration specifications. To be provided with radiology test. 150 mL 12/24/2023 12/24/2023 sulfamethoxazole 800 mg / trimethoprim 160 mg oral tablet (4 sources) Dihydrofolate Reductase Inhibitor Antibacterial, Sulfonamide Antimicrobial Start: 07-07-2024 End: 07-10-2024 take 1 tablet by mouth twice daily sulfamethoxazole-t rimethoprim (BACTRIM DS) 800-160 mg per tablet Take 1 tablet by mouth two times a day for 3 days. 6 tablet 07/07/2024 07/10/2024 Discontinued tirzepatide (MOUNJARO) 2.5 mg/0.5 mL pen injector (7 sources) Start: 03-20-2022 End: 04-18-2022 inject 2.5 mg by subcutaneous injection every week tirzepatide (MOUNJARO) 2.5 mg/0.5 mL pen injector Indications: Obesity, Class III, BMI 40-49.9 (morbid obesity) (HCC) Inject 2.5 mg subcutaneously one time a week. 4 Each 1 03/20/2022 04/18/2022 Discontinued Start: 03-20-2022 inject 2.5 mg by sub cutaneous injection every week tirzepatide (MOUNJARO) 2.5 mg/0.5 mL pen injector Indications: Obesity, Class III, BMI 40-49.9 (morbid obesity) (HCC) Inject 2.5 mg subcutaneously one time a week. 4 Each 1 03/20/2022 Active Comment on above: Inject 2.5 mg subcutaneously one time a week. tirzepatide, weight loss (ZEPBOUND) 5 mg/0.5 mL pen injector (20 sources) Start: End: inject 5 mg by subcutaneous injection every week tirzepatide, weight loss (ZEPBOUND) 5 mg/0.5 mL pen injector Indications: Obesity, Class III, BMI 40-49.9 (morbid obesity) (HCC) Inject 5 mg subcutaneously one time a week. 2 mL 5 09/10/2023 11/23/2023 Discontinued Start: 09-10-2023 End: 03-08-2024 inject 5 mg by subcutaneous injection every week tirzepatide, weight loss (ZEPBOUND) 5 mg/0.5 mL pen injector Indications: Obesity, Class III, BMI 40-49.9 (morbid obesity) (HCC) Inject 5 mg subcutaneously one time a week. 2 mL 5 09/10/2023 03/08/2024 Active Start: 07-23-2023 End: 09-10-2023 inject 5 mg by subcutaneous injection every week tirzepatide, weight loss (ZEPBOUND) 5 mg/0.5 mL pen injector Inject 5 mg subcutaneously one time a week. 2 mL 5 07/23/2023 09/10/2023 Discontinued Start: 07-23-2023 End: 01-19-2024 inject 5 mg by subcutaneous injection every week tirzepatide, weight loss (ZEPBOUND) 5 mg/0.5 mL pen injector Inject 5 mg subcutaneously one time a week. 2 mL 5 07/23/2023 01/19/2024 Active Start: 07-21-2023 End: 11-23-2023 inject 5 mg by subcutaneous injection every week tirzepatide, weight loss (ZEPBOUND) 5 mg/0.5 mL pen injector Inject 5 mg subcutaneously one time a week. 2 mL 5 07/21/2023 11/23/2023 Discontinued Start: 07-21-2023 End: 01-17-2024 inject 5 mg by subcutaneous injection every week tirzepatide, weight loss (ZEPBOUND) 5 mg/0.5 mL pen injector Inject 5 mg subcutaneously one time a week. 2 mL 5 07/21/2023 01/17/2024 Active Start: 07-20-2023 End: 07-20-2023 inject 5 mg by subcutaneous injection every week tirzepatide, weight loss (ZEPBOUND) 5 mg/0.5 mL pen injector Inject 5 mg subcutaneously one time a week. 2 mL 5 07/20/2023 07/20/2023 Discontinued Start: 07-20-2023 End: 01-16-2024 inject 5 mg by subcutaneous injection every week tirzepatide, weight loss (ZEPBOUND) 5 mg/0.5 mL pen injector Inject 5 mg subcutaneously one time a week. 2 mL 5 07/20/2023 01/16/2024 Active Problems Active Problems Problem Classification Problem Date Documented Da te Episodic/Chronic Administrative/social admission (1 source) Problems related to education and literacy, unspecified; Translations: [Educational circumstances] Onset: 06-25-2024 Episodic Asthma (20 sources) Asthma; Translations: [Unspecified asthma, uncomplicated] Onset: 09-27-2012 09-27-2012 Chronic Blindness and vision defects (1 source) Eye / vision finding; Translations: [Unspecified visual disturbance] Episodic Deficiency and other anemia (3 sources) Iron deficiency anemia; Translations: [Iron deficiency anemia, unspecified] Episodic Diseases of mouth; excluding dental (1 source) Oral lesion; Translations: [Other lesions of oral mucosa] 04-09-2023 Episodic Disorders of lipid metabolism (20 sources) Hyperlipidemia; Translations: [Hyperlipidemia, unspecified] Onset: 07-31-2014 07-31-2014 Chronic E Codes: Adverse effects of medical drugs (3 sources) Adverse reaction to drug; Translations: [Adverse effect of unspecified drugs, medicaments and biological substances, subsequent encounter] 08-24-2022 Episodic Endometriosis (3 sources) Endometriosis of ovary; Translations: [Endometriosis of ovary] Onset: 07-01-2024 05-09-2024 Chronic Hemorrhoids (1 source) Hemorrhoids; Translations: [Unspecified hemorrhoids] 01-08-2023 Episodic Immunizations and screening for infectious disease (9 sources) Patient encounter status; Translations: [Encounter for screening for human papillomavirus (HPV)] Episodic Malaise and fatigue (1 source) Fatigue; Translations: [Other fatigue] Episodic Menstrual disorders (1 source) Disorder of menstruation; Translations: [Irregular menstruation, unspecified] Chronic Nausea and vomiting (1 source) Nausea; Translations: [Nausea] 07-08-2024 Episodic Neoplasms of unspecified nature or uncertain behavior (1 source) Thrombocytosis; Translations: [Thrombocytosis] Onset: 09-14-2023 Chronic Nonmalignant breast conditions (20 sources) Fibrocystic disease of breast; Translations: [Diffuse cystic mastopathy of unspecified breast] Onset: 09-11-2013 09-11-2013 Chronic Nonmalignant breast conditions (6 sources) Pain of breast; Translations: [Mastodynia] Onset: 07-15-2024 12-12-2022 Episodic Nutritional deficiencies (20 sources) Vitamin D deficiency; Translations: [Vitamin D deficiency, unspecified] Onset: 08-04-2014 08-04-2014 Chronic Nutritional deficiencies (2 sources) Iron deficiency; Translations: [Iron deficiency] Episodic Other ear and sense organ disorders (20 sources) Otitis externa; Translations: [Unspecified otitis externa, right ear] Onset: 09-07-2022 04-27-2018 Chronic Other ear and sense organ disorders (1 source) Otalgia, right ear; Translations: [Otalgia, unspecified] Episodic Other female genital disorders (3 sources) Cyst of uterine adnexa; Translations: [Unspecified condition associated with female genital organs and menstrual cycle] 01-19-2024 Episodic Other gastrointestinal disorders (2 sources) Acute constipation; Translations: [Constipation, unspecified] Episodic Other gastrointestinal disorders (2 sources) Swelling; Translations: [Other intra-abdominal and pelvic swelling, mass and lump] 02-07-2024 Episodic Other gastrointestinal disorders (1 source) Pelvic mass; Translations: [Intra-abdominal and pelvic swelling, mass and lump, unspecified site] 02-07-2024 Episodic Other inflammatory condition of skin (20 sources) Rosacea; Translations: [Rosacea, unspecified] Onset: 09-27-2012 09-27-2012 Chronic Other lower respiratory disease (1 source) Respiratory tract congestion; Translations: [Other specified respiratory disorders] 09-07-2022 Episodic Other lower respiratory disease (2 sources) Cough; Translations: [Acute cough] 12-11-2022 Episodic Other lower respiratory disease (2 sources) Cough; Translations: [Acute cough] 02-05-2024 Episodic Other nervous system disorders (1 source) Other acute postprocedural pain; Translations: [Acute post-operative pain] Onset: 07-01-2024 Episodic Other nutritional; endocrine; and metabolic disorders (20 sources) Body mass index 40+ - severely obese; Translations: [Morbid (severe) obesity due to excess calories] Onset: 11-19-2012 05-07-2017 Chronic Other nutritional; endocrine; and metabolic disorders (6 sources) Severe obesity; Translations: [Morbid (severe) obesity due to excess calories] Chronic Other nutritional; endocrine; and metabolic disorders (1 source) Obesity; Translations: [Obesity, unspecified] 04-24-2023 Chronic Other nutritional; endocrine; and metabolic disorders (1 source) Body mass index (BMI) 45.0-49.9, adult; Translations: [Class 3 severe obesity with body mass index (BMI) of 45.0 to 49.9 in adult, unspecified obesity type, unspecified whether serious comorbidity present (HCC)] Onset: 07-15-2024 Chronic Other nutritional; endocrine; and metabolic disorders (1 source) Morbid (severe) obesity due to excess calories; Translations: [Obesity, Class III, BMI 40-49.9 (morbid obesity) (HCC)] Onset: 05-07-2017 Chronic Other nutritional; endocrine; and metabolic disorders (1 source) Unintentional weight gain; Translations: [Abnormal weight gain] Episodic Other screening for suspected conditions (not mental disorders or infectious disease) (1 source) Cancer cervix screening status; Translations: [Encounter for screening for malignant neoplasm of cervix] Episodic Other skin disorders (1 source) Folliculitis; Translations: [Follicular disorder, unspecified] 02-05-2024 Episodic Otitis media and related conditions (3 sources) Otitis media; Translations: [Otitis media, unspecified, right ear] 12-11-2018 Episodic Regional enteritis and ulcerative colitis (1 source) Terminal ileitis; Translations: [Crohn's disease of small intestine with unspecified complications] Chronic Residual codes; unclassified (20 sources) Daytime somnolence; Translations: [Other hypersomnia] Onset: 08-16-2016 08-16-2016 Chronic Residual codes; unclassified (1 source) Other hypersomnia; Translations: [Excessive daytime sleepiness] Onset: 08-16-2016 Chronic Residual codes; unclassified (3 sources) Treatment not available; Translations: [Procedure and treatment not carried out for other reasons] Episodic Residual codes; unclassified (1 source) Edema; Translations: [Edema, unspecified] Episodic Residual codes; unclassified (20 sources) Postoperative state; Translations: [Other specified postprocedural states] Onset: 07-01-2024 07-01-2024 Episodic Residual codes; unclassified (7 sources) History of left oophorectomy; Translations: [Acquired absence of ovaries, unilateral] Onset: 07-16-2024 07-16-2024 Episodic Residual codes; unclassified (1 source) Acquired absence of both cervix and uterus; Translations: [Status post hysterectomy] Onset: 07-14-2024 Episodic Skin and subcutaneous tissue infections (3 sources) Cellulitis of left lower limb; Translations: [Cellulitis of left lower limb] Onset: 07-10-2024 07-10-2024 Episodic Unclassified (1 source) OPENED IN ERROR 09-08-2022 Unclassified (1 source) Class 3 severe obesity with body mass index (BMI) of 45.0 to 49.9 in adult, unspecified obesity type, unspecified whether serious comorbidity present (HCC); Translations: [Class 3 severe obesity with body mass index (BMI) of 45.0 to 49.9 in adult, unspecified obesity type, unspecified whether serious comorbidity present (HCC)] Onset: 07-15-2024 Unclassified (1 source) Obesity, Class III, BMI 40-49.9 (morbid obesity); Translations: [Obesity, Class III, BMI 40-49.9 (morbid obesity)] Onset: 05-07-2017 Unclassified (1 source) Acute cough; Translations: [Acute cough] Onset: 02-05-2024 Viral infection (3 sources) Viral disease; Translations: [Viral infection, unspecified] 12-24-2022 Episodic Past or Other Problems Problem Classification Problem Date Documented Da te Episodic/Chronic Abdominal pain (20 sources) Right lower quadrant pain; Translations: [Right lower quadrant pain] Onset: 02-13-2022 Episodic Allergic reactions (20 sources) Allergic condition;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 George Childs DO 07/01/2024 8:48 AM B : left uterosacral ligament Tissue Peritoneum, Biopsy SURGICAL PATHOLOGY George Childs DO 07/01/2024 9:07 AM C : Tissue Fallopian Tube, Right, Resection SURGICAL PATHOLOGY Jerrod George, 07/01/2024 9:10 AM D : Tissue Fallopian Tube And Ovary Left SURGICAL PATHOLOGY George Childs, 07/01/2024 9:27 AM E : Tissue Uterus and Cervix SURGICAL PATHOLOGY Jerrod George, 07/01/2024 9:27 AM COMPLICATIONS: None CLOSURE TECHNIQUE: Primary PRE-OP/PRE-PROCEDURE DIAGNOSIS: Pelvic Pain, Endometriosis POST-OP/POST-PROCEDURE DIAGNOSIS: Same as Preop Patient was accompanied to the next level of care by a licensed practitioner from the surgical team pending completion of this brief op note (or operative note) SIGNATURE: Becyk Collado MD PATIENT NAME: Don Rodas DATE: July 01, 2024 TIME: 11:01 AM Normal [facility] CONFIRM BLOOD TYPEon 025 ABO B Normal [facility] Comment on above: Order Comment: Speci men Type: BLOOD SPECIMENOrdering Facility: [facility] Address: [address] [place] [address] Performed By: #### C ONABO ####[facility] MAIN BLOOD BANKCLIA [id number] [place] [address] [place] Rh Nom (Bld) Negative Normal [facility] Comment on above: Order Comment: Speci men Type: BLOOD SPECIMENOrdering Facility: [facility] Address: [address] [place] [address] Performed By: #### C ONABO ####CC MAIN BLOOD BANKCLIA [id number] [place] [address] [place] OPERATIVE NOon 07-01-2024 OPERATIVE NO HNO ID: [id number] Author: GEORGE CHILDS DO Service: Gynecology Author Type: Physician Type: Operative Report Filed: 07/02/2024 08:56 Note Text: SEM MANAGER OPERATIVE/PROCEDURE REPORT LOG ID: [id number] SURGERY/PROCEDURE DATE: 07/01/2024 INCISION/PROCEDURE START TIME: 8:03 AM INCISION CLOSE/PROCEDURE END TIME: 10:09 AM SURGEON(S)/PROCEDURALIST(S ) AND SALVAGE GRINDER(S): Surgeons and Role: * George Childs DO - Primary * Anca Tran MD - Resident - Assisting * Becky Collado MD - Fellow No Additional Staff SURGERY/PROCEDURE(S): Total Laparoscopic Hysterectomy, Bilateral Salpingectomy Left Oophorectomy Lysis of Adhesions Excision of Endometriosis - deep peritoneal and cul-de-sac including retrocervical peritoneum and left uterosacral ligament nodule Cystoscopy ANESTHESIA: General FINDINGS 1) Exam under anesthesia: Normal external female genitalia, normal appearing vaginal tissue without lesions or discharge, normal appearing cervix. 8 week size anteverted mobile uterus without palpable adnexal masses. 2) Laparoscopy: Anterior cul-de-sac- normal appearing Posterior cul-de-sac- partially obliterated due to sigmoid adhesions to left pelvic sidewall and tethering of rectum to posterior cervix Left ovarian fossa- obliterated due densely adherent left adnexa and sigmoid colon Right ovarian fossa- normal-appearing Uterosacral ligaments- normal-appearing right USL, left USL involved in left adnexal adhesions and with significant thickening and 2cm endometriotic nodule, dense adhesions between sigmoid colon and left uterosacral ligament Uterus- normal-appearing, posterior cervix with plaque like endometriosis, and left adnexa adherent to posterior uterus Ovaries and fallopian tubes- left ovary containing 4cm endometrioma, denseley adherent to ovarian fossa, posterior uterus and with sigmoid adhesions. Left fallopian tube adherent to ovary Normal appearing right ovary and fallopian tube Bowel and appendix- normal-appearing Diaphragmatic peritoneum- normal-appearing 3) Cystoscopy: bilateral ureters patent as indicated by strong jets of urine from bilateral ureteral ostia and intact bladder urothelium, normal urinary trigone ENZIAN CLASSIFICATION P (Peritoneum) 2 Sum of all diameters P1: <3cm P2: 3-7cm P3: >7cm O (Ovary) 2 (left)/0 (right) Sum of all diameters O1: <3cm O2: 3-7cm O3: >7cm m: ovary is missing x: unknown/ not visible T (Tube) 3 (left)/0 (right) Adhesions/ Motility T1: Pelvic sidewall T2: Pelvic sidewall, uterus T3: Pelvic sidewall, uterus, bowel, USL m: tube is missing x: unknown/ not visible +/-: Patency test DEEP ENDOMETRIOSIS Largest Diameter 1: <1cm 2: 1-3cm 3: >3cm x: unknown/ not visible or accessible A (Rectovaginal space, Vagina, Retrocervical area) 2 B (Sacrouterine ligament, Cardinal ligaments, Pelvic sidewall) 1 (left)/0 (right) C (Rectum) 0 F 0 A: adenomyosis B: bladder I: intestine U: ureter Other: diaphragm, lung, nerve SPECIMENS: ID Type Source Tests Collected by Time Destination A : posterior cervix Tissue Cervix, Biopsy SURGICAL PATHOLOGY George Childs, DO 07/01/2024 8:48 AM B : left uterosacral ligament Tissue Peritoneum, Biopsy SURGICAL PATHOLOGY George Childs, DO 07/01/2024 9:07 AM C : Tissue Fallopian Tube, Right, Resection SURGICAL PATHOLOGY Scottie Childsn, DO 07/01/2024 9:10 AM D : Tissue Fallopian Tube And Ovary Left SURGICAL PATHOLOGY George Childs, DO 07/01/2024 9:27 AM E : Tissue Uterus and Cervix SURGICAL PATHOLOGY Scottie Childsn, DO 07/01/2024 9:27 AM COMPLICATIONS: None PRE-OP/PRE-PROCEDURE DIAGNOSIS: Endometriosis POST-OP/POST-PROCEDURE DIAGNOSIS: Same as preop IV Fluids: 1500mL Urine Output: 850mL Estimated Blood Loss: 50mL Implantable Devices: None Drains: Damon catheter Identification: Don Rodas is a 33 year old female with endometriosis, pelvic pain and worsening symptoms, desiring surgical management. Pelvic MRI revealed: 1. Multiple left ovarian endometriomas. No suspicious ovarian lesions. 2. Deep pelvic endometriosis tethering the left ovary and invading the torus uterinus. It also tethers the rectosigmoid without definite muscular invasion. She was counseled about all the risks, benefits, alternatives, complications, indications, and personnel of the procedures performed which she accepted. An informed consent was signed. PROCEDURE: Patient was taken to the operating room where the sign-in and time out were completed. General anesthesia was induced and found to be adequate. She was placed in a dorsal lithotomy position. Exam under anesthesia was performed. The abdomen, perineum and vagina were prepped and draped in the usual sterile fashion. SCDs were placed and turned on for DVT prophylaxis. A Damon catheter was placed in the urinary bladder under sterile conditions An open-sided speculum was placed in the patient's (more content not included)... Normal [facility] Pathology biopsy report Shaq (Tiss)on 07-01-2024 AP DISCLAIMER Normal [facility] Comment on above: Order Comment: Speci men Type: TISSUE SPECIMENOrdering Facility: [facility] Address: [address] [place] [address] Result Comment: Abimael lock Developed Test (LDT) Disclaimer: Performance characteristics of immunohistochemical, immunofluorescent, and chromogenic in-situ hybridization tests have been determined by the performing laboratory within [facility]'s [facility] Pathology and Laboratory Medicine Department ([facility], [facility], [facility], [facility], [facility], [facility], or [facility]) in a manner consistent with CLIA requirements. One or more of these tests may not have been cleared or approved by the FDA. [facility] is regulated under CLIA as qualified to perform high-complexity testing. These tests are used for clinical purposes. These should not be regarded as investigational or for research. Positive and negative controls stain appropriately. Performed By: #### 6 6121-5 ####[facility] LABCLIA [id number] [place] [address] [place] CASE REPORT Normal [facility] Comment on above: Order Comment: Speci men Type: TISSUE SPECIMENOrdering Facility: [facility] Address: [address] [place] [address] Result Comment: Surg ica Pathology Report Case: [id number] Authorizing Provider: George Childs DO Collected: 07/01/2024 08:48 AM Ordering Location: Admitting Received: 07/01/2024 10:12 AM Pathologist: Cortes Sheppard MD Specimens: A) - Cervix, Biopsy, posterior cervix B) - Peritoneum, Biopsy, left uterosacral ligament C) - Fallopian Tube, Right, Resection D) - Fallopian Tube And Ovary Left E) - Uterus and Cervix Performed By: #### 6 6121-5 ####[facility] LABCLIA [id number] [place] [id number] [place] CLINICAL HISTORY Normal [facility] Comment on above: Order Comment: Speci men Type: TISSUE SPECIMENOrdering Facility: [facility] Address: [address] [place] [address] Result Comment: Pre- op diagnosis: Endometriosis of ovary [N80.109] Performed By: #### 6 6121-5 ####[facility] LABCLIA [id number] [address] [place] FINAL DIAGNOSIS Normal [facility] Comment on above: Order Comment: Speci men Type: TISSUE SPECIMENOrdering Facility: [facility] Address: [address] [place] [address] Result Comment: A. C ervix, posterior, biopsy - Endometriosis B. Peritoneum, left uterosacral ligament, biopsy - Endometriosis C. Fallopian tube, right, salpingectomy - Histologically unremarkable fallopian tube D. Fallopian tube and ovary, left, salpingo-oophorectomy - Ovarian mucinous cystadenoma - Benign fallopian tube - Endometriosis and tubo-ovarian adhesions E. Uterus and cervix, hysterectomy - Histologically unremarkable cervix - Benign endometrial polyp - Proliferative endometrium at 1223 EDT Performed By: #### 6 6121-5 ####[facility] LABCLIA [id number] [address] [place] FINAL PERFORMING LAB Normal [facility] Comment on above: Order Comment: Speci men Type: TISSUE SPECIMENOrdering Facility: [facility] Address: [address] [place] [address] Result Comment: Diag nostic interpretation performed at: [facility], [address] [place] [address] CLIA# [id number] Non Destructive Testing Scientist: Lexa Banda MD Performed By: #### 6 6121-5 ####[facility] LABCLIA [id number] [place] [id number] [place] GROSS DESCRIPTION Normal [facility] Comment on above: Order Comment: Speci men Type: TISSUE SPECIMENOrdering Facility: [facility] Address: [address], [place] [id number] Result Comment: A. C ervix, Biopsy Received in formalin labeled posterior cervix are two barbosa-pink, irregularly-shaped and cauterized segments of soft tissue aggregating to 1.8 x 0.8 x 0.4 cm. A discrete mass or lesion is not identified. Entirely submitted in cassette A1. B. Peritoneum, Biopsy Received in formalin labeled left uterosacral ligament are multiple barbosa-pink, irregularly-shaped fragments of soft tissue with cautery, aggregating to 2.7 x 2.1 x 0.7 cm. A discrete mass or lesion is not identified grossly. The specimen is entirely submitted in cassettes B1-B2. C. Fallopian Tube, Right, Resection Received in formalin labeled fallopian tube, right, resection is a fimbriated fallopian tube measuring 8.0 cm in length by 0.5 cm in diameter. A 0.8 cm in diameter unilocular simple cyst is present at the distal end containing clear serous fluid. The serosa is pink-barbosa, smooth and glistening. Sectioning reveals an unremarkable lumen. Rn Infusion sections are submitted in cassette C1. D. Fallopian Tube And Ovary Left Received in formalin labeled fallopian tube and ovary, left is a fimbriated fallopian tube that is moderately edematous, measuring 7.3 cm in length by 0.7 cm in diameter. The serosa is smooth and glistening and the lumen is sectioned to reveal congested cut surfaces. The adherent ovary is cystic, measuring 7.0 x 5.7 x 3.4 cm and weighing 68.8 g. The external surface is purple-barbosa and smooth without papillations. Sectioning reveals a multilocular cystic cavity containing dark red-brown, thick blood like material. The cyst wall averages 0.1 cm thick. The uninvolved ovarian stroma is mildly hemorrhagic with minute cystic cavities containing clear serous fluid. No additional lesions identified. Rn Infusion sections are submitted as follows: D1: Fallopian tube D2-D6: Cystic ovary E. Uterus and Cervix Received in formalin labeled uterus and cervix is a uterus with attached cervix, measuring 9.5 x 3.8 x 3.7 cm and weighing 99.4 g. The serosa is barbosa-pink, smooth and glistening. The ectocervical mucosa is woodward-pink and unremarkable. The external cervical os is round, measuring 0.5 cm in diameter. The specimen is bisected, revealing an unremarkable endocervical canal, measuring 4.0 cm in length. The triangular uterine cavity measures 4.5 x 3.2 cm and is lined by red-barbosa, glistening endometrium, averaging 0.1 cm in thickness. The myometrium is pink-barbosa and trabeculated, measuring 1.9 cm in greatest thickness. No discrete mass or lesion is identified. Rn Infusion sections are submitted as follows: E1: Anterior cervix at 12:00 E2: Posterior cervix at 3:00 E3: Anterior uterine wall E4: Posterior uterine wall HMZ 07/01/24 3:38 PM Gross examination performed at [facility], [address] [place] [address] Performed By: #### 6 6121-5 ####[facility] LABCLIA [id number] [address] [place] CBC panel Auto (Bld)on 06-19 Erythrocyte distribution width (RBC) [Ratio] 13.8 % Normal 11.5-15.0 [facility] Comment on above: Order Comment: Speci men Type: BLOOD SPECIMENOrdering Facility: [facility] Address: [address] [place] [address] Performed By: #### 5 8410-2 ####[facility] [id number] [place] [address] [place] Hematocrit (Bld) [Volume fraction] 40.3 % Normal 36.0-46.0 [facility] Comment on above: Order Comment: Speci men Type: BLOOD SPECIMENOrdering Facility: [facility] Address: [address] [place] [address] Performed By: #### 5 8410-2 ####[facility] [id number] [place] [address] [place] Hemoglobin (Bld) [Mass/Vol] 13.2 g/dL Normal 11.5-15.5 [facility] Comment on above: Order Comment: Speci men Type: BLOOD SPECIMENOrdering Facility: [facility] Address: [address] [place] [address] Performed By: #### 5 8410-2 ####[facility] [place] [id number] [place] [address] [place] MCH (RBC) [Entitic mass] 27.9 pg Normal 26.0-34.0 [facility] Comment on above: Order Comment: Speci men Type: BLOOD SPECIMENOrdering Facility: [facility] Address: [address] [place] [address] Performed By: #### 5 8410-2 ####[facility]ITALNCJonathan [id number] [place] [address] [place] MCHC (RBC) [Mass/Vol] 32.8 g/dL Normal 30.5-36.0 [facility] Comment on above: Order Comment: Speci men Type: BLOOD SPECIMENOrdering Facility: [facility] Address: [address] [place] [address] Performed By: #### 5 8410-2 ####[facility] HOSPITALGOPALJonathan [id number] [place] [address] [place] MCV (RBC) [Entitic vol] 85.2 fL Normal 80.0-100.0 [facility] Comment on above: Order Comment: Speci men Type: BLOOD SPECIMENOrdering Facility: [facility] Address: [address] [place] [address] Performed By: #### 5 8410-2 ####[facility]ITALNCLIA [id number] [place] [address] [place] Nucleated RBC (Bld) [#/Vol] 10*3/uL Normal <0.01 [facility] Comment on above: Order Comment: Speci men Type: BLOOD SPECIMENOrdering Facility: [facility] Address: [address] [place] [address] Performed By: #### 5 8410-2 ####[facility] MILLTOWNCLIA [id number] [place] [address] [place] Platelet mean volume (Bld) [Entitic vol] 9.5 fL Normal 9.0-12.7 [facility] Comment on above: Order Comment: Speci men Type: BLOOD SPECIMENOrdering Facility: [facility] Address: [address] [place] [address] Performed By: #### 5 8410-2 ####[facility]ITALNCLIA [id number] [place] [address] [place] Platelets (Bld) [#/Vol] 409 10*3/uL High 150-400 [facility] Comment on above: Order Comment: Speci men Type: BLOOD SPECIMENOrdering Facility: [facility] Address: [address] [place], [place] [address] Performed By: #### 5 8410-2 ####[facility]ITALNCLIA [id number] [place] [address] [place] RBC (Bld) [#/Vol] 4.73 10*6/uL Normal 3.90-5.20 [facility] Comment on above: Order Comment: Speci men Type: BLOOD SPECIMENOrdering Facility: [facility] Address: [address] [place], [place] [address] Performed By: #### 5 8410-2 ####[facility]ITALWNCLIA [id number] [place] [address] [place] WBC (Bld) [#/Vol] 9.08 10*3/uL Normal 3.70-11.00 [facility] Comment on above: Order Comment: Speci men Type: BLOOD SPECIMENOrdering Facility: [facility] Address: [address] [place] [address] Performed By: #### 5 8410-2 ####[facility]ITALNCLIA [id number] [place] [address] [place] HISTORY PHYSICALon HISTORY PHYSICAL HNO ID: [id number] Author: BRITTANY RAMIREZ APRN.MARIO Service: ? Author Type: Nurse Practitioner Type: H&P Filed: 06/19/2024 08:50 Note Text: [facility] HISTORY AND PHYSICAL EXAMINATION SERVICE DATE: 06/19/2024 SERVICE TIME: 8:50 AM PRIMARY CARE PHYSICIAN: Ariana Bhagat MD Assessment Patient has the following medical conditions which may affect lamont-operative course: Excessive daytime sleepiness Assessment: +snoring, obesity, denies LILLIANA but suspected Hyperlipidemia LDL goal <130 Assessment: c/w statin Mild intermittent asthma, uncomplicated Assessment: controlled on rx and as needed Acute upper respiratory infection Assessment: recent URI 2-3 days, nasal congestion/drainage, ear fullness, reviewed supportive care, and to notify surgeon's office if no improvement and follow up with PCP's office Thrombocytosis Assessment: hx, seen hematology in the past, dates back at least 10 years Platelet Count Date Value Ref Range Status 12/22/2023 495 (H) 150 - 400 k/uL Final Obesity, Class III, BMI 40-49.9 (morbid obesity) (HCC) Assessment: Body mass index is 44.96 kg/m?. ANESTHESIA FINDINGS: Intubation History: No history of difficult intubation Significant Anesthesia Considerations: none Airway History: No history of difficult airway Aguilar Activity Status Index: METS: Climb a flight of stairs or walk up a hill (5.50 METs) DASI Score: 5.5 Patient denies any chest pain or undue shortness of breath with the above physical activity. Clinical Frailty Scale: 3. Well, with treated comorbid disease STOP-Bang Score: Snores loudly Often feels tired, fatigued, or sleepy during the daytime BMI greater than 35 kg/m2 Has a large neck Has not been observed to stop breathing or choking/gasping during sleep Denies having high blood pressure Patient 50 years old or younger Non-male patient STOP-Bang Score: 4 [id number] Score: Age: <65 Sex: female CHF history: No Hypertension history: No Stroke/TIA/thromboembolism history: No Vascular disease history: No Diabetes history: No [id number] Score: 1 ARISCAT Score: Age: <=50 Preoperative SpO2: >=96% Respiratory infection in the last month: No Preoperative anemia: No Surgical incision: peripheral Duration of surgery: >3 hrs Emergency procedure: No ARISCAT Score: 23 I - PHYSICAL EVALUATION AIRWAY Patient intubated: No. Tracheostomy tube not present Mallampati: III. TM distance: >3 FB. Neck ROM: full ROM without neurological symptoms. Mouth opening: adequate. Short neck: no. Thick neck: yes Preciado present: no Lip Bite Test: I Microretrognathia/Micronag thia/Recessed Chin: No DENTAL Dental findings: teeth intact. II - ANESTHESIA PLAN Anesthetic Plan: other Beta Maxwell Monitoring Plan Post Procedure Analgesic Plan Prepared for Surgery: optimally prepared for surgery, pending [see comment]. labs CONSULTS: Patient does not require consults for optimization at this time Planned Anesthetic: other anesthesia choice The Following Tests/Procedures Have Been Initiated: No orders of the defined types were placed in this encounter. REASON FOR VISIT: Don Rodas is a 33 year old female who is scheduled for Procedure(s): LAPAROSCOPIC HYSTERECTOMY TOTAL FOR UTERUS 250 G OR LESS W/REMOVAL TUBE(S) AND/OR OVARY(S) (N/A) CYSTOSCOPY (N/A) at the request of Dr. George Childs for consultation. My final recommendation will be communicated back to the requesting physician by way of shared medical record or letter. Subjective The patient has the following: COVID-19 Immunization Status Completed or No Longer Recommended Covid-19 Vaccine (Series Information) Completed 10/21/2023 Imm Admin: COVID-19 vaccine, age 12+ yr (PFIZER-BIONTECH COMIRNATY) 11/28/2022 Imm Admin: COVID-19 vaccine, age 12+ yr, 2022- season (PFIZER-BIONTECH) 10/09/2021 Imm Admin: COVID-19 vaccine, age 12+ yr, bivalent (MODERNA) Only the first 3 history entries have been loaded, but more history exists. CHIEF COMPLAINT: Pre-op exam HPI: Don Rodas is a 33 year old seen for PAC due to scheduled above surgery because of endometriosis. 05/09/2024, Dr. George Childs CHIEF COMPLAINT: Don Rodas is a 33 year old female who presents with a history of ENDOMETRIOSIS. The patient reports experiencing daily pelvic pain for several years, which has gradually worsened over time. The pain is primarily located on the left side but has also been severe on the right side, prompting two emergency room visits. During these episodes, she describes intense pressure causing her to walk bent over. The pain is constant, worsening during the day and slightly improving at night, allowing her to sleep. The pain intensifies during menstruation and is exacerbated by prolonged sitting at work, necessitating frequent standing to alleviate pel (more content not included)... Normal [facility] TYPE AND SCREEN,30 DAYon ABO B Normal [facility] Comment on above: Order Comment: Speci men Type: BLOOD SPECIMEN Ordering Facility: [facility] Address: [address] [place] [address] Performed By: #### 2 039-6, 23704-2 #### [facility] CLIA [id number] [address] [place] [address] [place] Rh Nom (Bld) Negative Normal [facility] Comment on above: Order Comment: Speci men Type: BLOOD SPECIMEN Ordering Facility: [facility] Address: [address] [place] [address] Performed By: #### 2 039-6, 89086-6 #### 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 Date Reviewed: 05/09/2024 Reviewed by: Meredith Robertson RN - Fully Assessed Reason for Visit: Schedule Surgery [1330] RESCHEDULE SURGERY [Other] Prescriptions as of 05/15/2024 - Surgical Lubricant Jelly gel For MRI Female Pelvis, MRI department to provide. Administer intra-vaginal Surgilube immediately prior the MRI procedure (total amount to patient toleranace). - albuterol HFA (PROVENTIL HFA, VENTOLIN HFA) 90 mcg/actuation inhaler Inhale 2 Puffs as instructed every 4 hours as needed for wheezing/shortness of breath. - atorvastatin (LIPITOR) 20 mg tablet Take 1 tablet by mouth daily at bedtime. For cholesterol. - tirzepatide, weight loss (ZEPBOUND) 7.5 mg/0.5 mL pen injector Inject 7.5 mg subcutaneously one time a week. - nystatin (MYCOSTATIN) cream Apply 1 application to affected area two times a day. - cyclobenzaprine (FLEXERIL) 10 mg tablet Take 1 tablet by mouth three times a day as needed for muscle spasm. - fluticasone-vilanterol (BREO ELLIPTA) 200-25 mcg/dose inhaler Inhale 1 Inhalation as instructed once daily. Inhale one puff once daily. DO NOT CLICK OPEN UNTIL READY FOR DOSE - EPINEPHrine (EPIPEN) 0.3 mg/0.3 mL auto-injector 0.3 ml subcutaneous as needed for severe allergic reaction/may substitute. - albuterol (PROVENTIL) 2.5 mg /3 mL (0.083 %) nebulizer solution Use 3 mL via nebulizer every 6 hours as needed for wheezing/shortness of breath. Use over 5-15minutes. - ergocalciferol 50,000 unit capsule (VITAMIN D2, DRISDOL) Take 1 capsule by mouth one time a week. - clotrimazole-betamethasone (LOTRISONE) cream APPLY TO AFFECTED AREA TWICE A DAY - multivitamin tablet Take 1 tablet by mouth once daily. - ascorbic acid (RANDA-C ORAL) Take 2,000 mg by mouth once daily. - Nebulizer 1 Each once daily. NEBULIZER FOR HOME USE. DX: asthma J 45.909 Problem List As Of Date 05/12/2024 Noted Resolved Asthma [J45.909] 09/27/2012 Rosacea [L71.9] 09/27/2012 Obesity, Class III, BMI 40-49.9 (morbid obesity*11/19/2012 Low back pain [M54.50] 11/19/2012 08/16/2016 Seborrheic dermatitis of scalp [L21.9] 11/19/2012 Allergy [T78.40XA] 09/11/2013 Fibrocystic breast disease in female [N60.19] 09/11/2013 Sprain of neck [S13.9XXA] 03/03/2014 07/31/2014 Sprain of thoracic region [S23.9XXA] 03/03/2014 07/31/2014 Hyperlipidemia LDL goal <130 [E78.5] 07/31/2014 Vitamin D deficiency [E55.9] 08/04/2014 History of BCG vaccination [Z92.29] 09/06/2015 Excessive daytime sleepiness [G47.19] 08/16/2016 Mild intermittent asthma, uncomplicated [J45.20]08/19/2020 Acute upper respiratory infection [J06.9] 09/07/2022 Diagnosed: 09/07/2022 Inflammation of stomach and intestine [K52.9] 09/07/2022 Diagnosed: 09/07/2022 Otitis externa [H60.90] 09/07/2022 Diagnosed: 09/07/2022 Partial thickness burn of elbow [T22.229A] 09/07/2022 Diagnosed: 09/07/2022 Right lower quadrant abdominal pain [R10.31] 02/13/2022 Diagnosed: 09/07/2022 Urinary tract infection [N39.0] 09/07/2022 Diagnosed: 09/07/2022 Ovarian cyst, right [N83.201] 05/01/2023 Thrombocytosis [D75.839] 09/14/2023 Encounter Status:Closed by LARRY HOLLOWAY on 05/15/24 Normal [facility] CNOVon 05-09-2024 CNOV Office Visit ([facility] ) -- DON RODAS ([id number]) 1990 F Date Time Provider Department 05/09/24 11:00 AM GEORGE CHILDS [facility] During your visit today, we recorded the following information about you: Pulse Blood pressure Weight Height 61/minute 105/71 109.3 kg 1.575 m Last Period 05/09/24 George Childs DO 05/09/2024 2:26 PM Signed [facility] SECTION FOR MINIMALLY INVASIVE GYNECOLOGIC SURGERY OUTPATIENT VISIT DATE OUTPATIENT VISIT TYPE NEW Consultation requested by Claudia Langston MD for an opinion regarding Don Rodas, and my final recommendations will be communicated back to the requesting physician by way of shared medical record or letter via US mail. DATE OF SERVICE: 05/09/2024 The patient is a 33-year-old female presenting with chronic pelvic pain. CHIEF COMPLAINT: Don Rodas is a 33 year old female who presents with a history of ENDOMETRIOSIS. The patient reports experiencing daily pelvic pain for several years, which has gradually worsened over time. The pain is primarily located on the left side but has also been severe on the right side, prompting two emergency room visits. During these episodes, she describes intense pressure causing her to walk bent over. The pain is constant, worsening during the day and slightly improving at night, allowing her to sleep. The pain intensifies during menstruation and is exacerbated by prolonged sitting at work, necessitating frequent standing to alleviate pelvic pressure. She denies worsening pain with eating, exercise, urination, bowel movements, or intercourse. Mild relief is noted with exercise and ibuprofen use. She has not tried hormonal treatments such as control pills, shots, or IUDs. Recent imaging revealed a 7 cm left ovarian cyst concerning for endometriosis, with the right ovary appearing normal. She expresses a desire for treatment to alleviate pain, including medication or surgical options. She describes her symptoms as constant sharp pain mainly LLQ Symptoms have been present for about 3 years ago Her pain is felt at these locations: lower abdomen Left > Right Pain radiates to lower back, upper left leg Her pain is worse during her menses. She describes her menses as very heavy with clots She is taking or tried the following for menses suppression: Nothing She reports the following bowel complaints: No . She reports the following bladder complaints: No. She has not missed work/school due to pain. She has visited the Emergency Room for the pain. She is unsure about future child bearing. She has not been a victim of emotional, physical, or sexual abuse. Aggravating factors: None. Alleviating factors: water aerobics. Nonsurgical attempts to ameliorate her pain have included: Attempted surgical treatment has been as follows: IMAGING: MRI 02/08/2024 IMPRESSION: 1. Multiple left ovarian endometriomas. No suspicious ovarian lesions. 2. Deep pelvic endometriosis tethering the left ovary and invading the torus uterinus. It also tethers the rectosigmoid without definite muscular invasion. Past Gynecologic History: Menarche: LMP: Last pap cytology: 01/18/2022 WNL History of abnormal history No History of STI: No History of PID: No Past Obstetrical History: Vaginal delivery: Section: Ectopic: Miscarriage: Past Medical History: PAST MEDICAL HISTORY Diagnosis Date Allergy 09/11/2013 Asthma 09/27/2012 Excessive daytime sleepiness 08/16/2016 Fibrocystic breast disease in female 09/11/2013 Hyperlipidemia LDL goal <130 07/31/2014 Morbid obesity (HCC) Rosacea 09/27/2012 Vitamin D deficiency 08/04/2014 Past Surgical History: PAST SURGICAL HISTORY Procedure Laterality Date COLONOSCOPY SCREENING 11/28/2021 focal 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 EGD W/O BRSH SPEC VARICIES INJ 11/28/2021 Normal REMOVE TONSILS/ADENOIDS,12+ Y/O TONSILLECTOMY HX Family History: FAMILY HISTORY Problem Relation Age of Onset Asthma Mother Hyperlipidemia Mother Osteoporosis Mother Diabetes Father Psoriasis Father Arthritis Father Diabetes Maternal Grandmother Heart Maternal Grandmother tachycardia Hypertension Maternal Grandmother None Maternal Grandfather Asthma Paternal Grandmother Stroke Paternal Grandmother Colon Cancer Maternal Uncle Social History: Social History Tobacco Use Smoking status: Never Smokeless tobacco: Never Vaping Use Vaping status: Never Used Substance Use Topics Alcohol use: No Drug use: No Current Outpatient Medications Medication Sig albuterol HFA (PROVENTIL HFA, VENTOLIN HFA) 90 mcg/actuation inhaler Inhale 2 Puffs as instructed every 4 hours as needed for wheezing/shortness of breath. atorvastatin (LIPITOR) 20 mg tablet Take 1 tablet by mouth daily at bedtime. For cho (more content not included)... Normal [facility] Urgent Care Visit Reporton 0 05-07-2024 Urgent Care Visit Report [facility] [address] , [address] [place] [address] OFFICE VISIT Date of Service: 05/07/24 MR#: [id number] Acct: [id number] Name: DON RODAS Rep #: [id number] : 1990 Provider: CAMPBELL Guzman Age/Sex: 33/F Location: [facility] [place] Status: Signed Intake Vital Signs 05/02/24 07:25 05/07/24 11:08 05/07/24 11:29 Height 5 ft 2 in BP 108/64 110/60 Blood Pressure Location Rt brachial Position Sitting Sitting Respiration 18 Pulse 80 81 Pulse Source Monitor Temp 98.0 F Temp Source Oral Pulse Oximetry (%) 99 96 98 Oxygen Delivery Method room air room air room air Comment After DuoNeb x 1 Intake Visit Reasons: ASTHMA FLARE UP Accompanied by: Self Allergies Fish Containing Products Allergy (Severe, Verified 05/07/24 11:03) Anaphylaxis shellfish derived Allergy (Severe, Verified 05/07/24 11:03) Anaphylaxis azithromycin Allergy (Mild, Verified 05/07/24 11:03) Rash cephalexin monohydrate (From Keflex) Allergy (Verified 05/07/24 11:03) Rash iodine Allergy (Verified 05/07/24 11:03) Anaphylaxis latex Allergy (Verified 05/07/24 11:03) Unknown pneumococcal vaccine (From Prevnar 20 (PF)) Allergy (Verified 05/07/24 11:03) Rash Medications ???Medication ???Instructions ???Recorded ???Confirmed ???Type cholecalciferol (vitamin D3) 1,250 See Rx Instructions .Route 06/0905/07/24 Rx mcg (50,000 unit) capsule .COMPLEX #12 caps epinephrine 0.3 mg/0.3 mL 0.3 ml IM ONCE PRN anaphylaxis #1 10/21/19 05/07/24 Rx injection, auto-injector ea fluticasone furoate 200 1 inh inhalation DAILY #90 ea 10/0605/07/24 Rx mcg-vilanterol 25 mcg/dose inhalation powder (Breo Ellipta) albuterol sulfate 0.63 mg/3 mL 0.63 mg (3 mL) inhalation Q4H PRN 12/31/19 05/07/24 Rx solution for nebulization shortness of breath or wheezing #90 mL albuterol sulfate 90 mcg/actuation 2 puff inhalation Q6H PRN 05/07/24 Rx aerosol inhaler shortness of breath or wheezing #8.5 grams atorvastatin 20 mg tablet 20 mg PO DAILY 07/23/22 05/07/24 H istory semaglutide 0.25 mg or 0.5 mg (2 0.25 mg subcut QWEEK 07/23/22/25 History mg/3 mL) subcutaneous pen injector (Ozempic) amoxicillin 875 mg-potassium 1 tab PO Q12H 10 days #20 tabs 05/07/24 Rx clavulanate 125 mg tablet methylprednisolone 4 mg tablets in 4 mg PO PER PKG DIR 6 days #21 t abs 05/02/24 05/07/24 Rx a dose pack (Medrol (Cassandra)) Nurse's Note: Patient was at the gym and started not feeling well and she forgot her inhaler. [facility] Medical History (Updated 05/07/24 @ 11:29 by Elieser HIGHTOWER, PA) Asthma exacerbation Asthma Surgical History History of tonsillectomy Family History Mother Diverticulitis IBS (irritable bowel syndrome) Other Arthritis Asthma Hyperlipemia Osteoporosis Thyroid disorder Social History Smoking Status: Never smoker alcohol intake: never substance use type: does not use caffeine: Yes what type of physical activity do you participate in: none and walking seatbelt use: always do you feel safe at home: Yes additional social history: Single-works at [employer] HPI Details: DON RODAS, is a 33 F who presents to the office today for initial evaluation at the [facility] for acute exacerbation of asthma with wheezing after exercising at local gym immediately prior to arrival here today. Patient notes having been evaluated here approximately 5 days ago for asthmatic bronchitis for which she was treated with a corticosteroid and antibiotic which she admits being compliant with has been feeling remarkably better until exercising in the gym as previously stated. She notes no complaints of chest pressure or shortness of breath, though wheezing as previously described. No complaints of fever, chills, sweats. No ipjg-[id number] products taken to assist, stating she left her albuterol metered-dose inhaler at home and therefore is here hoping to receive an albuterol nebulizer. No other complaints at this time. ROS Const Constitutional: No other (As above) Exam Const General: cooperative, healthy appearing and no acute distress Orientation: alert and awake HENMT Head: normal to inspection Ears: hearing grossly normal bilaterally and external ears normal Nose: external nose normal Neck Neck: normal visual inspection, no meningeal signs and supple Lymphatic: no lymphadenopathy noted Chest Chest palpation inspection: normal inspection of the chest Resp Effort Inspection: normal respiratory effort and able to speak in complete sentences Auscultation: Bilateral: (more content not included)... Normal [facility] Visit Reporton 0 05-02-2024 Urgent Care Visit Report [facility] [address], [address] [place] [address] OFFICE VISIT Date of Service: 05/02/24 MR#: [id number] Acct: [id number] Name: DON RODAS Rep #: [id number] : 1990 Provider: CAMPBELL Gonsalez Age/Sex: 33/F Location: [facility] [place] Status: Signed Intake Vital Signs 03/05/24 22:37 05/02/24 07:25 Height 5 ft 2 in 5 ft 2 in BP 108/64 Blood Pressure Location Rt brachial Position Sitting Respiration 18 Pulse 80 Pulse Source Monitor Temp 98.0 F Temp Source Oral Pulse Oximetry (%) 99 Oxygen Delivery Method room air Intake Visit Reasons: cough, sore throat, ear pain Chief Complaint: cough, sore throat, right ear pain Stringer 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: No Accompanied by: Father Is patient in pain?: Yes Pain scale (1-10): 7 Allergies Fish Containing Products Allergy (Severe, Verified 05/02/24 07:24) Anaphylaxis shellfish derived Allergy (Severe, Verified 05/02/24 07:24) Anaphylaxis azithromycin Allergy (Mild, Verified 05/02/24 07:24) Rash cephalexin monohydrate (From Keflex) Allergy (Verified 05/02/24 07:24) Rash iodine Allergy (Verified 05/02/24 07:24) Anaphylaxis latex Allergy (Verified 05/02/24 07:24) Unknown pneumococcal vaccine (From Prevnar 20 (PF)) Allergy (Verified 05/02/24 07:24) Rash Medications ???Medication ???Instructions ???Recorded ???Confirmed ???Type cholecalciferol (vitamin D3) 1,250 See Rx Instructions .Route 06/0905/02/24 Rx mcg (50,000 unit) capsule .COMPLEX #12 caps epinephrine 0.3 mg/0.3 mL 0.3 ml IM ONCE PRN anaphylaxis #1 10/21/19 05/02/24 Rx injection, auto-injector ea fluticasone furoate 200 1 inh inhalation DAILY #90 ea 10/0605/02/24 Rx mcg-vilanterol 25 mcg/dose inhalation powder (Breo Ellipta) albuterol sulfate 0.63 mg/3 mL 0.63 mg (3 mL) inhalation Q4H PRN 12/31/19 05/02/24 Rx solution for nebulization shortness of breath or wheezing #90 mL albuterol sulfate 90 mcg/actuation 2 puff inhalation Q6H PRN 05/02/24 Rx aerosol inhaler shortness of breath or wheezing #8.5 grams atorvastatin 20 mg tablet 20 mg PO DAILY 07/23/22 05/02/24 H istory semaglutide 0.25 mg or 0.5 mg (2 0.25 mg subcut QWEEK 07/23/2204/06 History mg/3 mL) subcutaneous pen injector (Ozempic) amoxicillin 875 mg-potassium 1 tab PO Q12H 10 days #20 tabs 05/02/24 Rx clavulanate 125 mg tablet methylprednisolone 4 mg tablets in 4 mg PO PER PKG DIR 6 days #21 t abs 05/02/24 05/02/24 Rx a dose pack (Medrol (Cassandra)) [facility] Medical History Asthma Surgical History History of tonsillectomy Family History Mother Diverticulitis IBS (irritable bowel syndrome) Other Arthritis Asthma Hyperlipemia Osteoporosis Thyroid disorder Social History Smoking Status: Never smoker alcohol intake: never substance use type: does not use caffeine: Yes what type of physical activity do you participate in: none and walking seatbelt use: always do you feel safe at home: Yes additional social history: Single-works at [employer] HPI Chief Complaint: cough, sore throat, right ear pain Details: DON RODAS, is a 33 F who presents to the office today for complaint of cough, right ear pain and sore throat. Patient denies fever, chills, sweats. No nausea, vomiting or diarrhea. No hemoptysis, shortness of breath or difficulty breathing. No loss of taste or smell. No other associated symptoms or alleviating/aggravating factors. ROS Const Constitutional: No other (6 system ROS completed with pertinent findings in the HPI otherwise normal.) Exam Const General: cooperative and well developed HENCA Head: normal to inspection and atraumatic Ears: hearing grossly normal bilaterally and TM abnormal bulging and erythematous on the right Nose: nasal discharge clear Face and sinus: normal facial exam Mouth: oral mucosae normal Throat: abnormal tonsil bilaterally hypertrophy 1+ Resp Effort Inspection: normal respiratory effort and no audible wheezes Auscultation: Bilateral: Clear to Auscultation Cardio Rate: regular rate Rhythm: regular rhythm Neuro General: patient alert Psych Appearance: grossly normal Mental Status: mental status grossly normal Results POC Alicja Rapid Strep POC Alicja Rapid Strep Negative Last Edit by Carolee Martin on 05/02/24 07:58 Coding Level of Care Code Off vis,est,level 3 Diagnoses Otitis media, right H66.91 Mild intermittent asthmatic bronchitis with acute exacerbation J45.21 Asthma severity: mild Asthma persistence: interm (more content not included)... Normal [facility] Urinalysis, Completeon 03-06 BACTERIA 1+ /hpf Normal None Seen [facility] Comment on above: Order Comment: CLEAN CATCH Performed By: #### L 400.0001 #### [facility] [address] [place], [address] EPI,SQUAMOUS 25-50 SEEN Normal 5-10 [facility] Comment on above: Order Comment: CLEAN CATCH Performed By: #### L 400.0001 #### [facility] [address] [place], [address] Mucus Ql (Urine sed) RARE Normal [facility] Comment on above: Order Comment: CLEAN CATCH Performed By: #### L 400.0001 #### [facility] [address] [place], [address] RBC 0-5 SEEN Normal 0-5 [facility] Comment on above: Order Comment: CLEAN CATCH Performed By: #### L 400.0001 #### [facility] [address] [place], [address] WBC 0-5 SEEN Normal 0-5 [facility] Comment on above: Order Comment: CLEAN CATCH Performed By: #### L 400.0001 #### [facility] [address] [place], [address] BILIRUBIN URINE Negative Normal Negative [facility] Comment on above: Order Comment: CLEAN CATCH Performed By: #### L 400.0001 #### [facility] [address] [place], [address] Clarity (U) Clear Normal Clear [facility] Comment on above: Order Comment: CLEAN CATCH Performed By: #### L 400.0001 #### [facility] [address] [place], [address] Color (U) Yellow Normal Yellow [facility] Comment on above: Order Comment: CLEAN CATCH Performed By: #### L 400.0001 #### [facility] [address] [place], [address] GLUCOSE, UR Normal Normal Normal [facility] Comment on above: Order Comment: CLEAN CATCH Performed By: #### L 400.0001 #### [facility] [address] [place], [address] KETONE UR Negative Normal Negative [facility] Comment on above: Order Comment: CLEAN CATCH Performed By: #### L 400.0001 #### [facility] [address] [place], [address] LEUK ESTERASE Negative Normal Negative [facility] Comment on above: Order Comment: CLEAN CATCH Performed By: #### L 400.0001 #### [facility] [address] [place], [address] Nitrite Ql (U) Negative Normal Negative [facility] Comment on above: Order Comment: CLEAN CATCH Performed By: #### L 400.0001 #### [facility] [address] [place], [address] OCCULT BLOOD-UR 10 /ul Abnormal Negative [facility] Comment on above: Order Comment: CLEAN CATCH Performed By: #### L 400.0001 #### [facility] [address] [place], [address] pH UR 5.0 Normal 5.0 - 8.0 [facility] Comment on above: Order Comment: CLEAN CATCH Performed By: #### L 400.0001 #### [facility] [address] [place], [address] PROT DIPSTX Negative Normal Negative [facility] Comment on above: Order Comment: CLEAN CATCH Performed By: #### L 400.0001 #### [facility] [address] [place], [address] SP.GR. DIPSTX 1.025 Normal 1.002-1.030 [facility] Comment on above: Order Comment: CLEAN CATCH Performed By: #### L 400.0001 #### [facility] [address] [place], [address] UROBILI Normal Normal Normal [facility] Comment on above: Order Comment: CLEAN CATCH Performed By: #### L 400.0001 #### [facility] [address] [place], [address] Abdomen/Pelvis without Conto n 03-05-2024 Abdomen/Pelvis without Cont [facility] [address] [place] [address] Abdomen/Pelvis without Cont MR#: [id number] Acct: [id number] Name: DON RODAS Rep #: [id number] : 1990 F 33 From: Lennox Marquez MD PCP: Dr. Ariana Bhagat MD Status: PRE ER Study: Abdomen/Pelvis without Cont Date of Exam: 02/06 10/30 Exam# [id number] Ordering Dr: Mejia Jones DO PROCEDURE: ABDOMEN/PELVIS WITHOUT CONT REASON FOR EXAM: Left lower quadrant abdominal pain. TECHNIQUE: Abdomen and pelvis CT without intravenous contrast. COMPARISON: 04/10/2023 CT. FINDINGS: Lung bases: Clear Liver: Unremarkable. Gallbladder: Unremarkable. Spleen: Unremarkable. Pancreas: Unremarkable. Adrenals: Unremarkable. Kidneys: Unremarkable. Bladder: Concentric urinary bladder wall thickening. Reproductive Organs: Right adnexal unilocular cyst. Bowel: Unremarkable. Appendix: Normal. Lymph nodes: No suspicious lymph node enlargement. Vasculature: Major vascular structures are unremarkable. Peritoneum / Retroperitoneum: No ascites. No free air. Bones: Unremarkable. CT/Abdomen/Pelvis without Cont IMPRESSION: Concentric urinary bladder wall thickening. Correlate with urinalysis to exclude cystitis. One or more dose reduction techniques were used (e.g., Automated exposure control, adjustment of the mA and/or kV according to patient size, use of iterative reconstruction technique). Reading Location: [facility] CC: Dr. Mejia Jones DO; Dr. Ariana Bhagat MD Cobol Engineer: Signed Normal [facility] CBC W/Diff, Automatedon 02-06 Absolute Lymph 3.06 X10 3/uL Normal 0.83-4.51 [facility] Comment on above: Performed By: #### L 700.6800, L100.0100, L500.4050 #### [facility] [address] [place], [address] Absolute Neut 5.9 X10 3/uL Normal 2.0-7.7 [facility] Comment on above: Performed By: #### L 700.6800, L100.0100, L500.4050 #### [facility] [address] [place], [address] Basophils/100 WBC (Bld) 0.7 % Normal 0-1 [facility] Comment on above: Performed By: #### L 700.6800, L100.0100, L500.4050 #### [facility] [address] [place], [address] Eosinophils/100 WBC (Bld) 4.7 % Normal 0-5 [facility] Comment on above: Performed By: #### L 700.6800, L100.0100, L500.4050 #### [facility] [address] [place], [address] Erythrocyte distribution width (RBC) [Ratio] 14.0 % Normal 11.6-14.6 [facility] Comment on above: Performed By: #### L 700.6800, L100.0100, L500.4050 #### [facility] [address], [address] Hematocrit (Bld) [Volume fraction] 40.3 % Normal 37-47 [facility] Comment on above: Performed By: #### L 700.6800, L100.0100, L500.4050 #### [facility] [address] [place], [address] Hemoglobin (Bld) [Mass/Vol] 13.2 g/dL Normal 12.0-15.0 [facility] Comment on above: Performed By: #### L 700.6800, L100.0100, L500.4050 #### [facility] [address] [place], [address] IG% 0.500 Normal 0.0-0.9 [facility] Comment on above: Result Comment: IG% - Immature Granulocytes (promyelocytes, myelocytes and metamyelocytes) > 1% indicates that a LEFT SHIFT is Present. Performed By: #### L 700.6800, L100.0100, L500.4050 #### [facility] [address] [place], [address] Lymphocytes/100 WBC (Bld) 28.9 % Normal 19-41 [facility] Comment on above: Performed By: #### L 700.6800, L100.0100, L500.4050 #### [facility] [address] [place], [address] MCH (RBC) [Entitic mass] 27.7 pg Normal 27.0-32.0 [facility] Comment on above: Performed By: #### L 700.6800, L100.0100, L500.4050 #### [facility] [address] [place], [address] MCHC (RBC) [Mass/Vol] 32.8 g/dL Normal 32-36 [facility] Comment on above: Performed By: #### L 700.6800, L100.0100, L500.4050 #### [facility] [address] [place], [address] MCV (RBC) [Entitic vol] 84.7 fL Normal 81-99 [facility] Comment on above: Performed By: #### L 700.6800, L100.0100, L500.4050 #### [facility] [address] [place], [address] Monocytes/100 WBC (Bld) 9.3 % Normal 0-10 [facility] Comment on above: Performed By: #### L 700.6800, L100.0100, L500.4050 #### [facility] [address] [place], [address] Neutrophils/100 WBC (Bld) 55.9 % Normal 47-70 [facility] Comment on above: Performed By: #### L 700.6800, L100.0100, L500.4050 #### [facility] [address] [place], [address] Nucleated RBC (Bld) [#/Vol] 0 10*3/uL Normal 0-5 [facility] Comment on above: Performed By: #### L 700.6800, L100.0100, L500.4050 #### [facility] [address] [place], [address] Platelet mean volume (Bld) [Entitic vol] 9.3 fL Normal 6.2-12.0 [facility] Comment on above: Performed By: #### L 700.6800, L100.0100, L500.4050 #### [facility] [address] [place], [address] Platelets (Bld) [#/Vol] 486 10*3/uL High 150-450 [facility] Comment on above: Performed By: #### L 700.6800, L100.0100, L500.4050 #### [facility] [address] [place], [address] RBC (Bld) [#/Vol] 4.76 10*6/uL Normal 4.2-5.4 [facility] Comment on above: Performed By: #### L 700.6800, L100.0100, L500.4050 #### [facility] [address] [place], [address] RDW SD 43.5 fl Normal 35.1-43.9 [facility] Comment on above: Performed By: #### L 700.6800, L100.0100, L500.4050 #### [facility] [address] [place], [address] WBC (Bld) [#/Vol] 10.6 10*3/uL Normal 4.4-11.0 [facility] Comment on above: Performed By: #### L 700.6800, L100.0100, L500.4050 #### [facility] [address] [place], [address] Comprehensive Metabolic Prof ilon 03-05-2024 Albumin [Mass/Vol] 3.5 g/dL Normal 3.2-5.0 [facility] Comment on above: Performed By: #### L 700.6800, L100.0100, L500.4050 #### [facility] [address] [place], [address] Albumin/Globulin [Mass ratio] 0.9 {ratio} Normal 0.9-2.4 [facility] Comment on above: Performed By: #### L 700.6800, L100.0100, L500.4050 #### [facility] [address] [place], [address] ALK P 68 U/L Normal 45-117 [facility] Comment on above: Performed By: #### L 700.6800, L100.0100, L500.4050 #### [facility] [address] [place], [address] ALT [Catalytic activity/Vol] 46 U/L Normal 13-56 [facility] Comment on above: Performed By: #### L 700.6800, L100.0100, L500.4050 #### [facility] [address] [place], [address] AST [Catalytic activity/Vol] 41 U/L High 15-37 [facility] Comment on above: Performed By: #### L 700.6800, L100.0100, L500.4050 #### [facility] [address] [place], [address] Bilirubin [Mass/Vol] 0.30 mg/dL Normal 0.20-1.00 [facility] Comment on above: Result Comment: For patients on eltrombopag therapy, use of Dimension [place] TBIL is not recommended. Performed By: #### L 700.6800, L100.0100, L500.4050 #### [facility] [address] [place], [address] BUN/CRE 33.8 RATIO High 10-20 [facility] Comment on above: Performed By: #### L 700.6800, L100.0100, L500.4050 #### [facility] [address] [place], [address] CA,Total 9.2 mg/dL Normal 8.5-10.1 [facility] Comment on above: Performed By: #### L 700.6800, L100.0100, L500.4050 #### [facility] [address] [place], [address] Chloride [Moles/Vol] 107 mmol/L Normal 98-107 [facility] Comment on above: Performed By: #### L 700.6800, L100.0100, L500.4050 #### [facility] [address] [place], [address] CO2 [Moles/Vol] 27.0 mmol/L Normal 21.0-32.0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 Immunoassay by [employer]. Results obtained with different methods or kits cannot be used interchangeably. The reference interval is based on the 95th percentile of 240 apparently healthy premenopausal and postmenopausal women. At a cutoff value of 65 U/mL, the test sensitivity to distinguish ovarian carcinoma (FIGO stage I to IV) versus benign gynecological disease is 79%, with a specificity of 82%. Reference: Cancer Antigen 125 (CA 125 II) [package insert V 1.0 Welsh]. [facility], [place], [place] (November 2014) Performed By: #### 2 039-6, 18603-4 #### [facility] CLIA [id number] [address] [place] [address] OF ANI Cancer Ag19-9 SerPl-aCncon 0 02-08-2024 Cancer Ag 19-9 Qn 5.0 [arb'U]/mL Normal <36.0 [facility] Comment on above: Order Comment: Speci men Type: BLOOD SPECIMEN Ordering Facility: [facility] Address: [address] [place] [address] Result Comment: [facility] er antigen 19-9 test is used as an aid in monitoring response to treatment or recurrence in patients with established pancreatic, hepatobiliary, or gastrointestinal malignancies. Clinical correlation is required. The CA 19-9 Antigen test was performed using the [employer] DXI paramagnetic particle chemiluminescent immunoassay method. Results obtained with different assay methods or kits cannot be used interchangeably. Performed By: #### 2 039-6, 96999-8 #### [facility] CLIA [id number] [address] [place], [place] [address] [address] [place] MRI FEMALE PELVIS WO/W IVCON on 02-08-2024 MRI FEMALE PELVIS WO/W IVCON * * *Final Report* * * DATE OF EXAM: Feb 08 2024 3:43PM [facility] 0713 - MRI FEMALE PELVIS WO/W IVCON / PROCEDURE REASON: Other intra-abdominal and pelvic swelling, mass and lump * * * * Physician Interpretation * * * * MRI OF THE FEMALE PELVIS WITHOUT AND WITH CONTRAST CLINICAL HISTORY: Left adnexal lesion TECHNIQUE: Magnet: 1.5T scanner. Coil: Torso phased array Sequences / planes: Multisequence, multiplanar MR imaging of the pelvis was performed with and without intravenous contrast. Contrast: IV administration of 10 ml of Elucirem administration of ml of COMPARISON: US 02/01/2024 RESULT: Uterus: Size: 8.7 cm in sagittal dimension Orientation: Anteverted Configuration: conventional Endometrium: Maximum width measures 8 mm. No endometrial lesion. Junctional zone: Maximum thickness: 6 mm. Homogeneous T2 hypointense signal. Cervix: Normal Leiomyomas: None Adenomyomas: None Ovaries: - Right ovary: Measures 2.9 x 2.9 cm and is grossly unremarkable. - Left ovary: Measures 6.9 x 3.1 cm (4:24). It contains multiple T1 hyperintense nonenhancing cystic lesions, the largest measuring 3.5 cm, compatible with endometriomas. It is also tethered medially. Endometriosis: There is a spiculated T2 dark soft tissue in the left pelvis measuring approximately 2.6 x 2.2 cm (4:27), compatible with deep pelvic endometriosis. The endometriotic plaque tethers the left ovary and invades the torus uterinus. It also tethers the rectosigmoid without definite muscular invasion. Bladder: Normal. Peritoneum: None Lymph nodes: No lymph nodes enlarged by size criteria Gastrointestinal: Normal. Vessels: Normal. Bones: No suspicious lesions. IMPRESSION: 1. Multiple left ovarian endometriomas. No suspicious ovarian lesions. 2. Deep pelvic endometriosis tethering the left ovary and invading the torus uterinus. It also tethers the rectosigmoid without definite muscular invasion. Cobol Engineer: PSCB Transcribe Date/Time: Feb 14 2024 8:47A Dictated by : BRUNO VALVERDE MD This examination was interpreted and the report reviewed and electronically signed by: BRUNO VALVERDE MD on Feb 14 2024 9:07AM EST [id number] [facility] Telephone ([facility]) -- DON RODAS ([id number]) 1990 F Date Time Provider Department 02/07/24 ARIANA BHAGAT [facility] During your visit today, we recorded the following information about you: Ariana Bhagat MD 02/07/2024 3:22 PM Addendum Let her know I spoke with Dr Solis.( I attempted to call her multiple times but she hung up on me multiple times and hung up when I told her it was me and was important.) Dr Solis recommended ordering labs. Can get the MRI but also recommended having her see a hand endband cutter specialist in ovarian nodules. Order placed. Raven Luevano LPN 02/07/2024 3:30 PM Signed I sent this to the patient in a [employer] message. Deena Mclaughlin RN 02/07/2024 3:41 PM Signed Patient notified of results and provider's instructions. Patient verbalizes understanding. Deena Mclaughlin RN Allergies As of Date: 02/07/2024 Noted Allergy Reaction SHELLFISH DERIVED 09/27/2012 10 - Anaphylaxis KEFLEX (CEPHALEXIN) 11/22/2013 2 - Rash LATEX 01/21/2016 2 - Rash PREVNAR 20 (PF) (PNEUMOC 20-GUNJAN C*08/24/2022 14 - Other: See Comments Comments: Allergies. Date Reviewed: 02/05/2024 Reviewed by: Ladarius Flores APRN.PIPELINE INTEGRITY ENGINEER - Fully Assessed Reason for Visit: Results [95] Primary Visit Diagnosis:Pelvic mass [R19.00] Order(s):CA 125 [ENBE560] Order #: [id number] FUTURE CA 19-9 [OJPI580] Order #: [id number] FUTURE CARCINOEMBRYONIC ANTIGEN [SQCEA] Order #: [id number] FUTURE CONSULT TO GYNECOLOGIC/ONCOLOGY [7469217] Order #: [id number]: 1 FUTURE Prescriptions as of 02/07/2024 - iv contrast (will be provided with radiology test) MRI Female Pelvis Inject, intravenously, once for 1 dose. No IV access, insert saline lock prior to the beginning of sedation, infusion, injection of imaging exam. Discontinue saline lock post exam. If Pt has a central line or IVAD, may access for administration according to line specific nursing protocol. Once exam is complete flush line and de-access according to line specific nursing protocol in the MR contrast administration guidelines link. - Surgical Lubricant Jelly gel For MRI Female Pelvis, MRI department to provide. Administer intra-vaginal Surgilube immediately prior the MRI procedure (total amount to patient toleranace). - doxycycline (VIBRA-TABS) 100 mg tablet Take 1 tablet by mouth two times a day for 5 days. - mupirocin (BACTROBAN) 2 % ointment Apply to affected area three times a day for 5 days. - predniSONE (DELTASONE) 10 mg tablet Take 4 tablets by mouth once daily for 5 days. - albuterol HFA (PROVENTIL HFA, VENTOLIN HFA) 90 mcg/actuation inhaler Inhale 2 Puffs as instructed every 4 hours as needed for wheezing/shortness of breath. - atorvastatin (LIPITOR) 20 mg tablet Take 1 tablet by mouth daily at bedtime. For cholesterol. - tirzepatide, weight loss (ZEPBOUND) 7.5 mg/0.5 mL pen injector Inject 7.5 mg subcutaneously one time a week. - nystatin (MYCOSTATIN) cream Apply 1 application to affected area two times a day. - cyclobenzaprine (FLEXERIL) 10 mg tablet Take 1 tablet by mouth three times a day as needed for muscle spasm. - fluticasone-vilanterol (BREO ELLIPTA) 200-25 mcg/dose inhaler Inhale 1 Inhalation as instructed once daily. Inhale one puff once daily. DO NOT CLICK OPEN UNTIL READY FOR DOSE - EPINEPHrine (EPIPEN) 0.3 mg/0.3 mL auto-injector 0.3 ml subcutaneous as needed for severe allergic reaction/may substitute. - albuterol (PROVENTIL) 2.5 mg /3 mL (0.083 %) nebulizer solution Use 3 mL via nebulizer every 6 hours as needed for wheezing/shortness of breath. Use over 5-15minutes. - ergocalciferol 50,000 unit capsule (VITAMIN D2, DRISDOL) Take 1 capsule by mouth one time a week. - clotrimazole-betamethasone (LOTRISONE) cream APPLY TO AFFECTED AREA TWICE A DAY - multivitamin tablet Take 1 tablet by mouth once daily. - ascorbic acid (RANDA-C ORAL) Take 2,000 mg by mouth once daily. - Nebulizer 1 Each once daily. NEBULIZER FOR HOME USE. DX: asthma J 45.909 Problem List As Of Date 02/07/2024 Noted Resolved Asthma [J45.909] 09/27/2012 Rosacea [L71.9] 09/27/2012 Obesity, Class III, BMI 40-49.9 (morbid obesity*11/19/2012 Low back pain [M54.50] 11/19/2012 08/16/2016 Seborrheic dermatitis of scalp [L21.9] 11/19/2012 Allergy [T78.40XA] 09/11/2013 Fibrocystic breast disease in female [N60.19] 09/11/2013 Sprain of neck [S13.9XXA] 03/03/2014 07/31/2014 Sprain of thoracic region [S23.9XXA] 03/03/2014 07/31/2014 Hyperlipidemia LDL goal <130 [E78.5] 07/31/2014 Vitamin D deficiency [E55.9] 08/04/2014 History of BCG vaccination [Z92.29] 09/06/2015 Excessive daytime sleepiness [G47.19] 08/16/2016 Mild intermittent asthma, uncomplicated [J45.20]08/19/2020 Acute upper respiratory infection [J06.9] 09/07/2022 Diagnosed: 09/07/2022 Inflammation of stomach and intestine [K52.9] 09/07/2022 Diagnosed: 09/07/2022 Otitis e (more content not included)... Normal [facility] CNOVon 02-05-2024 CNOV Office Visit ([facility] ) -- DON RODAS ([id number]) 1990 F Date Time Provider Department 02/05/24 8:30 AM [facility]AR[facility] FLORES [facility] During your visit today, we recorded the following information about you: Temperature Pulse Respiration Blood pressure 98 degrees 80/minute 24/minute 91/66 Weight Last Period 107 kg 02/05/24 Ladarius Flores APRN.PIPELINE INTEGRITY ENGINEER 02/05/2024 9:16 AM Signed Subjective HPI Nontoxic-appearing female presents urgent care accompanied by mother. Complaint cough headaches wheezing chest congestion. Duration of symptoms 4 days. Associated symptoms listed above. Mother sick previous similar signs and symptoms. OTC medications none. Has been using rescue inhaler more frequently. Increase nocturnal cough. Additionally has noticed a boil in her inner left thigh. This is painful. Denies OTC medications for this. Denies any fevers vomiting abdominal pain. No chest pain or hemoptysis. Denies chance . Is not breast-feeding. Past medical history prescription medications allergies reviewed. .Patient presents with: Chest Congestion: SOB, Wheeze, headache, cough, chest pressure x 4 days Derm Problem: Inner left thigh, boil in skin, painful PAST MEDICAL HISTORY Diagnosis Date Allergy 09/11/2013 Asthma 09/27/2012 Excessive daytime sleepiness 08/16/2016 Fibrocystic breast disease in female 09/11/2013 Hyperlipidemia LDL goal <130 07/31/2014 Morbid obesity (HCC) Rosacea 09/27/2012 Vitamin D deficiency 08/04/2014 PAST SURGICAL HISTORY Procedure Laterality Date COLONOSCOPY SCREENING 11/28/2021 focal 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 EGD W/O BRSH SPEC VARICIES INJ 11/28/2021 Normal REMOVE TONSILS/ADENOIDS,12+ Y/O TONSILLECTOMY HX ALLERGIES Shellfish Derived, Keflex [Cephalexin], Latex, and Prevnar 20 (Pf) [Pneumoc 20-Gunjan Conj-Dip Cr(Pf)] MEDICATIONS albuterol HFA (PROVENTIL HFA, VENTOLIN HFA) 90 mcg/actuation inhaler Inhale 2 Puffs as instructed every 4 hours as needed for wheezing/shortness of breath. atorvastatin (LIPITOR) 20 mg tablet Take 1 tablet by mouth daily at bedtime. For cholesterol. tirzepatide, weight loss (ZEPBOUND) 7.5 mg/0.5 mL pen injector Inject 7.5 mg subcutaneously one time a week. nystatin (MYCOSTATIN) cream Apply 1 application to affected area two times a day. cyclobenzaprine (FLEXERIL) 10 mg tablet Take 1 tablet by mouth three times a day as needed for muscle spasm. fluticasone-vilanterol (BREO ELLIPTA) 200-25 mcg/dose inhaler Inhale 1 Inhalation as instructed once daily. Inhale one puff once daily. DO NOT CLICK OPEN UNTIL READY FOR DOSE EPINEPHrine (EPIPEN) 0.3 mg/0.3 mL auto-injector 0.3 ml subcutaneous as needed for severe allergic reaction/may substitute. albuterol (PROVENTIL) 2.5 mg /3 mL (0.083 %) nebulizer solution Use 3 mL via nebulizer every 6 hours as needed for wheezing/shortness of breath. Use over 5-15minutes. ergocalciferol 50,000 unit capsule (VITAMIN D2, DRISDOL) Take 1 capsule by mouth one time a week. clotrimazole-betamethasone (LOTRISONE) cream APPLY TO AFFECTED AREA TWICE A DAY multivitamin tablet Take 1 tablet by mouth once daily. ascorbic acid (RANDA-C ORAL) Take 2,000 mg by mouth once daily. Nebulizer 1 Each once daily. NEBULIZER FOR HOME USE. DX: asthma J 45.909 FAMILY HISTORY Problem Relation Age of Onset Asthma Mother Hyperlipidemia Mother Osteoporosis Mother Diabetes Father Psoriasis Father Arthritis Father Diabetes Maternal Grandmother Heart Maternal Grandmother tachycardia Hypertension Maternal Grandmother None Maternal Grandfather Asthma Paternal Grandmother Stroke Paternal Grandmother Colon Cancer Maternal Uncle Social History Tobacco Use Smoking status: Never Smokeless tobacco: Never Vaping Use Vaping status: Never Used Substance Use Topics Alcohol use: No Drug use: No BP 91/66 Pulse 80 Temp 36.7 ?C (98 ?F) Resp 24 Wt 107 kg (235 lb 14.3 oz) LMP 02/05/2024 (Exact Date) SpO2 96% BMI 43.15 kg/m? Review of Systems Constitutional: Negative for chills, fever and malaise/fatigue. HENT: Positive for congestion, sinus pain and sore throat. Negative for ear discharge and ear pain. Eyes: Negative for blurred vision, pain, discharge and redness. Respiratory: Positive for cough, shortness of breath and wheezing. Negative for hemoptysis, sputum production and stridor. Cardiovascular: Negative for chest pain. Gastrointestinal: Negative for abdominal pain, diarrhea, nausea and vomiting. Musculoskeletal: Negative for myalgias. Skin: Negative for itching and rash. Neurological: Positive for headaches. Negative for dizziness. Objective Physical Exam Constitutional: General: She is not in acute distress. Appearance: She is not diaphoretic. HENT: Head: Normocephalic. Jaw: No trismus, tenderness, swelling or pain on movement. Nose: Conge (more content not included)... Normal [facility] XR CHEST 2V FRONTAL/LATon XR CHEST 2V FRONTAL/LAT * * *Final Report* * * DATE OF EXAM: Feb 05 2024 8:53AM WOX [id number] - XR CHEST 2V FRONTAL/LAT / PROCEDURE REASON: Acute cough * * * * Physician Interpretation * * * * EXAMINATION: CHEST RADIOGRAPH (2 VIEW FRONTAL and LATERAL) CLINICAL HISTORY: Acute cough MQ: XC2_6 EXAM DATE/TIME: 02/05/2024 8:53 AM COMPARISON: Chest x-ray on 12/11/2022 RESULT: Lines, tubes, and devices: None. Lungs and pleura: Small lung volume. No consolidation. No lung mass. No pleural effusion. No pneumothorax. Cardiomediastinal silhouette: Stable cardiomediastinal silhouette. Bones and soft tissues: Unremarkable. IMPRESSION: No acute radiographic abnormality. Cobol Engineer: [facility] Transcribe Date/Time: Feb 05 2024 9:00A Dictated by : JOSÉ MIGUEL PARIKH MD This examination was interpreted and the report reviewed and electronically signed by: JOSÉ MIGUEL PARIKH MD on Feb 05 2024 9:00AM EST [id number] Normal [facility] XR Chest PA and Lateralon IMPRESSION: No acute radiographic abnormality. Cobol Engineer: JONO Transcribe Date/Time: Feb 05 2024 9:00A Dictated by : JOSÉ MIGUEL PARIKH MD This examination was interpreted and the report reviewed and electronically signed by: JOSÉ MIGUEL PARIKH MD on Feb 05 2024 9:00AM EST DIVISION OF RADIOLOGY * * *Final Report* * * DATE OF EXAM: Feb 05 2024 8:53AM WOX 5291 - XR CHEST 2V FRONTAL/LAT / PROCEDURE REASON: Acute cough * * * * Physician Interpretation * * * * EXAMINATION: CHEST RADIOGRAPH (2 VIEW FRONTAL & LATERAL) CLINICAL HISTORY: Acute cough MQ: XC2_6 EXAM DATE/TIME: 02/05/2024 8:53 AM COMPARISON: Chest x-ray on 12/11/2022 RESULT: Lines, tubes, and devices: None. Lungs and pleura: Small lung volume. No consolidation. No lung mass. No pleural effusion. No pneumothorax. Cardiomediastinal silhouette: Stable cardiomediastinal silhouette. Bones and soft tissues: Unremarkable. DIVISION OF RADIOLOGY Provider, [facility] - 02/05/2024 * * *Final Report* * * DATE OF EXAM: Feb 05 2024 8:53AM WOX 5291 - XR CHEST 2V FRONTAL/LAT / PROCEDURE REASON: Acute cough * * * * Physician Interpretation * * * * EXAMINATION: CHEST RADIOGRAPH (2 VIEW FRONTAL & LATERAL) CLINICAL HISTORY: Acute cough MQ: XC2_6 EXAM DATE/TIME: 02/05/2024 8:53 AM COMPARISON: Chest x-ray on 12/11/2022 RESULT: Lines, tubes, and devices: None. Lungs and pleura: Small lung volume. No consolidation. No lung mass. No pleural effusion. No pneumothorax. Cardiomediastinal silhouette: Stable cardiomediastinal silhouette. Bones and soft tissues: Unremarkable. IMPRESSION IMPRESSION: No acute radiographic abnormality. Cobol Engineer: PSCB Transcribe Date/Time: Feb 05 2024 9:00A Dictated by : JOSÉ MIGUEL PARIKH MD This examination was interpreted and the report reviewed and electronically signed by: JOSÉ MIGUEL PARIKH MD on Feb 05 2024 9:00AM EST [facility] Radiology Study observation (narrative) [facility] XR Chest PA and LateralOrder ed By: [facility] Provider on 02-05-2024 [facility] US FEMALE PELVIS TRANSVAGon 02-01-2024 US FEMALE PELVIS TRANSVAG * * *Final Report* * * DATE OF EXAM: Feb 01 2024 9:49AM WRU [id number] - US FEMALE PELVIS TRANSVAG / PROCEDURE REASON: Adnexal cyst * * * * Physician Interpretation * * * * EXAMINATION: TRANSVAGINAL AND LIMITED TRANSABDOMINAL FEMALE PELVIC ULTRASOUND CLINICAL HISTORY: Adnexal cyst; RLQ pain x2 months; LMP is reported as 01/30/2024 TECHNIQUE: Sonography of the pelvis was performed by transvaginal and transabdominal (limited) techniques. Images were obtained and stored in a permanent archive. MQ: [id number] COMPARISON: 01/17/2024 CT urogram, 09/09/2021 pelvic US RESULT: Uterus: -Size: 9 x 4.2 x 5.6 cm -Orientation: Anteverted -Endometrial echo complex: Evaluation of the endometrium was adequate. No endometrial abnormality. The endometrial echo complex measured 1 cm. -Cervix: Unremarkable. -Adenomyosis assessment: There are no sonographic findings of adenomyosis. -Fibroids: There are no fibroids. Right Ovary: 3.4 x 2.2 x 2.1 cm - Normal sonographic appearance with physiologic follicles. Doppler imaging showed normal arterial and venous flow throughout the ovary. Left Ovary: 2.3 x 2.3 x 2.4 cm - Lesion(s) present, as detailed below. Doppler imaging showed normal arterial and venous flow throughout the ovary. - US O-RADS Descriptor: Multilocular Cystic Lesion with a Solid Component - Dimensions: 5.1 x 2.6 x 4.8 cm. - Solid Component: Present - Color Score: Minimal vascular flow within solid component on color Doppler (color score = 2) - Other: Appears to arise exophytically from the left ovary - Ultrasound O-RADS Score: 4 (intermediate risk) - Ultrasound O-RADS Management: See impression Free Fluid: No abnormal free fluid is present. IMPRESSION: O-RADS 4 left adnexal lesion. Ultrasound O-RADS Follow-Up Recommendations: - Imaging: Female pelvic MRI without and with contrast is advised for further characterization. - Clinical: Advise Community Engagement Specialist-Oncologist follow-up, if not already performed. Cobol Engineer: RORY Transcribe Date/Time: Feb 06 2024 10:47A Dictated by : SURAJ HURD MD This examination was interpreted and the report reviewed and electronically signed by: SURAJ HURD MD on Feb 06 2024 10:53AM EST [id number] Normal [facility] CNOVon 01-19-2024 CNOV Office Visit (FAMPWS ) -- DON RODAS ([id number]) 1990 F Date Time Provider Department 01/19/24 11:00 AM ARIANA BHAGAT FAMPWS During your visit today, we recorded the following information about you: Temperature Pulse Blood pressure Weight 98.4 degrees 69/minute 92/58 106.4 kg Ariana Bhagat MD 01/19/2024 11:38 AM Signed Patient presents with: Follow Up HPI: Patient presents today for office visit for follow up. Sore throat and headache for 3 days. Has sore throat and right ear pain. Some congestion. No cough. No fever. No nausea or vomiting. Some loose stools. No shortness of breath. Still drinking well. MEDICATIONS: Current Outpatient Medications Medication Sig albuterol HFA (PROVENTIL HFA, VENTOLIN HFA) 90 mcg/actuation inhaler Inhale 2 Puffs as instructed every 4 hours as needed for wheezing/shortness of breath. atorvastatin (LIPITOR) 20 mg tablet Take 1 tablet by mouth daily at bedtime. For cholesterol. tirzepatide, weight loss (ZEPBOUND) 7.5 mg/0.5 mL pen injector Inject 7.5 mg subcutaneously one time a week. nystatin (MYCOSTATIN) cream Apply 1 application to affected area two times a day. benzonatate (TESSALON PERLES) 100 mg capsule Take 1 capsule by mouth three times a day as needed for cough. cyclobenzaprine (FLEXERIL) 10 mg tablet Take 1 tablet by mouth three times a day as needed for muscle spasm. fluticasone-vilanterol (BREO ELLIPTA) 200-25 mcg/dose inhaler Inhale 1 Inhalation as instructed once daily. Inhale one puff once daily. DO NOT CLICK OPEN UNTIL READY FOR DOSE EPINEPHrine (EPIPEN) 0.3 mg/0.3 mL auto-injector 0.3 ml subcutaneous as needed for severe allergic reaction/may substitute. albuterol (PROVENTIL) 2.5 mg /3 mL (0.083 %) nebulizer solution Use 3 mL via nebulizer every 6 hours as needed for wheezing/shortness of breath. Use over 5-15minutes. ergocalciferol 50,000 unit capsule (VITAMIN D2, DRISDOL) Take 1 capsule by mouth one time a week. clotrimazole-betamethasone (LOTRISONE) cream APPLY TO AFFECTED AREA TWICE A DAY multivitamin tablet Take 1 tablet by mouth once daily. ascorbic acid (RANDA-C ORAL) Take 2,000 mg by mouth once daily. Nebulizer 1 Each once daily. NEBULIZER FOR HOME USE. DX: asthma J 45.909 No current facility-administered medications for this visit. ALLERGIES: ALLERGIES Allergen Reactions Shellfish Derived Anaphylaxis Keflex [Cephalexin] Rash Latex Rash Prevnar 20 (Pf) [Pn* Other: See Comments Allergies. PAST MEDICAL HISTORY Diagnosis Date Allergy 09/11/2013 Asthma 09/27/2012 Excessive daytime sleepiness 08/16/2016 Fibrocystic breast disease in female 09/11/2013 Hyperlipidemia LDL goal <130 07/31/2014 Morbid obesity (HCC) Rosacea 09/27/2012 Vitamin D deficiency 08/04/2014 PAST SURGICAL HISTORY Procedure Laterality Date COLONOSCOPY SCREENING 11/28/2021 focal 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 EGD W/O BRSH SPEC VARICIES INJ 11/28/2021 Normal REMOVE TONSILS/ADENOIDS,12+ Y/O TONSILLECTOMY HX FAMILY HISTORY Problem Relation Age of Onset Asthma Mother Hyperlipidemia Mother Osteoporosis Mother Diabetes Father Psoriasis Father Arthritis Father Diabetes Maternal Grandmother Heart Maternal Grandmother tachycardia Hypertension Maternal Grandmother None Maternal Grandfather Asthma Paternal Grandmother Stroke Paternal Grandmother Colon Cancer Maternal Uncle Social History Tobacco Use Smoking status: Never Smokeless tobacco: Never Vaping Use Vaping status: Never Used Substance Use Topics Alcohol use: No Drug use: No Reviewed current medications, allergies, past medical history, surgical history, family history and social history today. REVIEW OF SYSTEMS Explained need for pelvic us Wants to hold on urology referral. Will double check urine for blood. No menses for over a week. All other reviewed and negative other than HPI. HEALTH MAINTENANCE: Reviewed health maintenance issues today and recommended the following in detail. There are no preventive care reminders to display for this patient. VITALS: BP 92/58 Pulse 69 Temp 36.9 ?C (98.4 ?F) (Tympanic) Wt 106.4 kg (234 lb 9.1 oz) LMP 04/14/2023 (Exact Date) SpO2 97% BMI 42.90 kg/m? Last 4 Encounter Wt Readings: Date: Wt: 01/19/2024 106.4 kg (234 lb 9.1 oz) 12/22/2023 105.2 kg (232 lb) 09/14/2023 102.5 kg (225 lb 15.5 oz) 07/28/2023 104.3 kg (230 lb) PHYSICAL EXAMINATION: General appearance: Well appearing, alert, in no acute distress, well-hydrated, well nourished. Skin: Skin color, texture, turgor normal, no suspicious rashes or lesions Head: Normocephalic, no masses, lesions, tenderness or abnormalities Eyes: Anicteric sclera. Pupils are equally round and reactive to light. Extraocular movements are intact. Ears: External ears normal, canals clear Nose/Sinuses: Nares nor (more content not included)... Normal [facility] COVID AND INFLUENZA A/B AND RSV PCR, ROUTINEon 01-19-2024 SARS-CoV-2 (COVID-19) RNA NU+probe Ql (Unsp spec) SARS-COV-2 (AGENT OF COVID-19) RNA: Not detected INFLUENZA A RNA: Not detected INFLUENZA B RNA: Not detected RESPIRATORY SYNCYTIAL VIRUS (RSV) RNA: Not detected Normal [facility] Comment on above: Performed By: #### 2 039-6, 08692-4 #### [facility] CLIA [id number] [address] [place] [address] [place] STREP A MOLECULAR (POC)on Procedural Control Valid [facility] Strep A (POCT) Negative Negative [facility] Urinalysis complete panel (U )on 01-19-2024 Bacteria LM.HPF (Urine sed) [#/Area] Negative Normal Negative [facility] Comment on above: Order Comment: Speci men Type: BLOOD SPECIMEN Ordering Facility: [facility] Address: [address] [place] [address] Performed By: #### 2 039-6, 66744-5 #### [facility] CLIA [id number] [address] [place] [address] [place] Bilirubin Ql (U) Negative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 RESULT: Pancreas: Normal sonographic appearance. Portions obscured: tail Liver: Echotexture: Normal, homogeneous. Echogenicity: Increased Surface contour: Smooth Lesions: None. Biliary: No intrahepatic biliary duct dilation. CBD: 0.6 cm at the hilum. Gallbladder: Normal caliber -Contents: No cholelithiasis -Wall: Normal -Other: No pericholecystic fluid. Right Kidney: No hydronephrosis. Spleen: The spleen is of normal echogenicity without focal lesion, and of normal size measuring 10.5 cm in length. Ascites: None. IMPRESSION IMPRESSION: Normal sonographic appearance of the right upper quadrant. The spleen is normal in appearance. Cobol Engineer: RORY Transcribe Date/Time: Dec 31 2023 2:02P Dictated by : CHANDRA VIVAS MD This examination was interpreted and the report reviewed and electronically signed by: CHANDRA VIVAS MD on Dec 31 2023 2:05PM EST [facility] XR LUMBAR 3V AP/LAT/L5-S1on 12-31-2023 XR LUMBAR 3V AP/LAT/L5-S1 * * *Final Report* * * DATE OF EXAM: Dec 31 2023 7:50AM WRX 5228 - XR LUMBAR 3V AP/LAT/L5-S1 / PROCEDURE REASON: multiple diagnoses * * * * Physician Interpretation * * * * EXAM TITLE: XR LUMBAR 3V AP/LAT/L5-S1 EXAM DATE/TIME: 12/31/2023 7:50 AM COMPARISON: None. CLINICAL INDICATION/HISTORY: Low back pain TECHNIQUE: AP, lateral and cone down lateral views of the lumbar spine are presented. FINDINGS: There are five txz-cwq-tkzmdic lumbar vertebrae. No fracture or subluxations are noted. There appears be L5-S1 disc space narrowing, with endplate sclerosis. Kissing spine seen on lateral view. There is no significant osteophyte formation. IMPRESSION: Lumbar spine mild degenerative changes. Cobol Engineer: RORY Transcribe Date/Time: Jan 01 2024 2:16P Dictated by : JOSÉ MIGUEL PARIKH MD This examination was interpreted and the report reviewed and electronically signed by: JOSÉ MIGUEL PARIKH MD on Jan 01 2024 2:18PM EST [id number] Normal [facility] XR THORACIC 3V AP/LAT/SWIMME RSon 12-31-2023 XR THORACIC 3V AP/LAT/SWIMMERS * * *Final Report* * * DATE OF EXAM: Dec 31 2023 7:49AM WRX 5261 - XR THORACIC 3V AP/LAT/SWIMMERS / PROCEDURE REASON: Flank pain * * * * Physician Interpretation * * * * EXAM TITLE: XR THORACIC 3V AP/LAT/SWIMMERS EXAM DATE/TIME: 12/31/2023 7:49 AM COMPARISON: None. CLINICAL INDICATION/HISTORY: Flank pain TECHNIQUE: AP, swimmer's and lateral views of the thoracic spine are presented FINDINGS: No fractures or subluxations are noted. The disc spaces are well preserved. Mild osteophyte formation is present. There is no paraspinal mass or bony destructive process. IMPRESSION: Mild degenerative changes in the thoracic spine. Cobol Engineer: RORY Transcribe Date/Time: Jan 01 2024 1:36P Dictated by : JOSÉ MIGUEL PARIKH MD This examination was interpreted and the report reviewed and electronically signed by: JOSÉ MIGUEL PARIKH MD on Jan 01 2024 1:38PM EST [id number] Normal [facility] CNOVon 12-28-2023 CNOV Office Visit (LAWS ) -- DON RODAS ([id number]) 1990 F Date Time Provider Department 12/28/23 1:40 PM MISTY WILLAMS During your visit today, we recorded the following information about you: Pulse Respiration Blood pressure 75/minute 16/minute 98/70 Misty Willams APRN.CNP 12/28/2023 5:43 PM Signed This is a 33 year old female who presents today with: Patient presents with: Recheck: 1 week follow up HISTORY OF PRESENT ILLNESS: Don Mehta Clark is a 33 year old female. Patient presents with: Recheck: 1 week follow up Pt presents today for follow-up. She was in to see Dr. Bhagat last week with some stomach/flank pain. She has a RUQ ultrasound ordered/scheduled. Her urine showed some microscopic blood and calcium oxalate crystals. She does have a CT urogram ordered and scheduled to rule out kidney stones. She reports there has been no change in the discomfort. She is just noticing some numbness in the right thigh area and down the leg. Does get some lower back pain. Urinating and moving bowels okay. No loss of control. No saddle anesthesia. Gets some nausea with the zepbound. No vomiting. PAST MEDICAL HISTORY: PAST MEDICAL HISTORY Diagnosis Date Allergy 09/11/2013 Asthma 09/27/2012 Excessive daytime sleepiness 08/16/2016 Fibrocystic breast disease in female 09/11/2013 Hyperlipidemia LDL goal <130 07/31/2014 Morbid obesity (HCC) Rosacea 09/27/2012 Vitamin D deficiency 08/04/2014 PAST SURGICAL HISTORY Procedure Laterality Date COLONOSCOPY SCREENING 11/28/2021 focal 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 EGD W/O [facility] SPEC VARICIES INJ 11/28/2021 Normal REMOVE TONSILS/ADENOIDS,12+ Y/O TONSILLECTOMY HX ALLERGIES Shellfish Derived, Keflex [Cephalexin], Latex, and Prevnar 20 (Pf) [Pneumoc 20-Gunjan Conj-Dip Cr(Pf)] MEDICATIONS Current Outpatient Medications Medication Sig albuterol HFA (PROVENTIL HFA, VENTOLIN HFA) 90 mcg/actuation inhaler Inhale 2 Puffs as instructed every 4 hours as needed for wheezing/shortness of breath. atorvastatin (LIPITOR) 20 mg tablet Take 1 tablet by mouth daily at bedtime. For cholesterol. tirzepatide, weight loss (ZEPBOUND) 7.5 mg/0.5 mL pen injector Inject 7.5 mg subcutaneously one time a week. nystatin (MYCOSTATIN) cream Apply 1 application to affected area two times a day. benzonatate (TESSALON PERLES) 100 mg capsule Take 1 capsule by mouth three times a day as needed for cough. cyclobenzaprine (FLEXERIL) 10 mg tablet Take 1 tablet by mouth three times a day as needed for muscle spasm. fluticasone-vilanterol (BREO ELLIPTA) 200-25 mcg/dose inhaler Inhale 1 Inhalation as instructed once daily. Inhale one puff once daily. DO NOT CLICK OPEN UNTIL READY FOR DOSE EPINEPHrine (EPIPEN) 0.3 mg/0.3 mL auto-injector 0.3 ml subcutaneous as needed for severe allergic reaction/may substitute. albuterol (PROVENTIL) 2.5 mg /3 mL (0.083 %) nebulizer solution Use 3 mL via nebulizer every 6 hours as needed for wheezing/shortness of breath. Use over 5-15minutes. ergocalciferol 50,000 unit capsule (VITAMIN D2, DRISDOL) Take 1 capsule by mouth one time a week. clotrimazole-betamethasone (LOTRISONE) cream APPLY TO AFFECTED AREA TWICE A DAY multivitamin tablet Take 1 tablet by mouth once daily. ascorbic acid (RANDA-C ORAL) Take 2,000 mg by mouth once daily. Nebulizer 1 Each once daily. NEBULIZER FOR HOME USE. DX: asthma J 45.909 No current facility-administered medications for this visit. FAMILY HISTORY Problem Relation Age of Onset Asthma Mother Hyperlipidemia Mother Osteoporosis Mother Diabetes Father Psoriasis Father Arthritis Father Diabetes Maternal Grandmother Heart Maternal Grandmother tachycardia Hypertension Maternal Grandmother None Maternal Grandfather Asthma Paternal Grandmother Stroke Paternal Grandmother Colon Cancer Maternal Uncle Social History Tobacco Use Smoking status: Never Smokeless tobacco: Never Vaping Use Vaping status: Never Used Substance Use Topics Alcohol use: No Drug use: No EXAM: BP 98/70 Pulse 75 Resp 16 LMP 04/14/2023 (Exact Date) SpO2 97% PHYSICAL EXAM: General Appearance: Well appearing, alert, in no acute distress, well-hydrated, well nourished.. Skin: Skin color, texture, turgor normal, no suspicious rashes or lesions. Head: Normocephalic, Extraocular movements are intact. . Back: mild pain to the upper lumbar spine. good flexion and extension, good range of motion, no muscle tenderness, reflexes are 2+ and symmetric, motor and sensory appear to be normal, negative SLR test, no evidence of scoliosis Lungs: Lungs clear to auscultation. No wheezing, rhonchi, rales.. Heart: RRR without murmur, gallop, or rubs. No ectopy. Abdomen: Normal abdominal exam, Abdomen soft, non-tender. Bowel sounds normal. No masses, organomegaly. Extremities: No def (more content not included)... Normal [facility] RODASDON BOLAÑOS ([id number]) 1990 F Date Time Provider Department 12/24/23 ARIANA BHAGAT [facility] During your visit today, we recorded the following information about you: Ariana Bhagat MD 12/24/2023 9:43 AM Signed Cholesterol is mildly up. Watch cholesterol in the diet. Her platelets are up still up. Had seen Dr Lopez in the past for the same. Has been there for at least 10 years. Can consider going back to hematology at some point. Interested in doing so now or want to follow? Her urine shows no infection. Has trace of blood. Is she anywhere near her time of month. If not and still with back pain, can consider a ct urogram to look for kidney stones. Raven Luevano LPN 12/24/2023 11:00 AM Signed Attempted to call x 2 patient picks up and then phone hangs up. Will need to call again later. Deena Mclaughlin RN 12/24/2023 11:09 AM Signed Patient notified of results and provider's instructions. Patient verbalizes understanding. Patient will think about going to hematology. Patient asking if she should be concerned that Abs Eosin is elevated. Patient asking if she can continue to take Zepbound? Patient agreeable to CT urogram. Patient denies being anywhere near her time of month. Patient states that she continues with back pain. MICHAEL Trinidad William J, MD 12/24/2023 12:54 PM Signed No. Would not worry about the eos. That is usually just mild allergies. I would continue the zepbound. Ct urogram ordered Edyta Covarrubias LPN 12/24/2023 2:34 PM Signed Pt notified with information listed below but keep getting cut off when I ask if she would like to be transferred to care team coordinator scheduler to test schedule. Wait for pt to call back. ROBERTO Lopez Rilee, MA 12/25/2023 10:18 AM Signed Can we please contact pt and help her setup CT Urogram as ordered by Provider. Chetna Arreaga MA Allergies As of Date: 12/24/2023 Noted Allergy Reaction SHELLFISH DERIVED 09/27/2012 10 - Anaphylaxis KEFLEX (CEPHALEXIN) 11/22/2013 2 - Rash LATEX 01/21/2016 2 - Rash PREVNAR 20 (PF) (PNEUMOC 20-GUNJAN C*08/24/2022 14 - Other: See Comments Comments: Allergies. Date Reviewed: 12/22/2023 Reviewed by: Kim Russell MA - Fully Assessed Reason for Visit: Results [95] Primary Visit Diagnosis:Flank pain [R10.9] Other Visit Diagnosis:Microscopic hematuria [R31.29] Order(s):CT UROGRAM WO/W IVCON [[id number]] Order #: [id number] FUTURE [] iv contrast (will be provided with radiology test)CT Urogram WO/W Inject, intravenously, once for 1 dose.No IV access, insert saline lock prior to the beginning of sedation, infusion, injection of imaging exam. Discontinue saline lock post exam. If Pt. has a central line or IVAD, may access for administration according to line specific nursing protocol. Once exam is complete flush line and de-access according to line specific nursing protocol in the CT contrast administration guidelines link.Disp: 1 EachRfl: 0 [] 0.9 % sodium chloride (NACL 0.9%) infusionAdminister at rate defined per CT contrast administration specifications. To be provided with radiology test.Disp: 150 mLRfl: 0 Prescriptions as of 12/28/2023 - predniSONE (DELTASONE) 10 mg tablet Take 4 tabs daily x 3 days, then 3 tabs x 3 days, 2 tabs x 3 days, then 1 tab x3 days with food. - albuterol HFA (PROVENTIL HFA, VENTOLIN HFA) 90 mcg/actuation inhaler Inhale 2 Puffs as instructed every 4 hours as needed for wheezing/shortness of breath. - atorvastatin (LIPITOR) 20 mg tablet Take 1 tablet by mouth daily at bedtime. For cholesterol. - tirzepatide, weight loss (ZEPBOUND) 7.5 mg/0.5 mL pen injector Inject 7.5 mg subcutaneously one time a week. - nystatin (MYCOSTATIN) cream Apply 1 application to affected area two times a day. - benzonatate (TESSALON PERLES) 100 mg capsule Take 1 capsule by mouth three times a day as needed for cough. - cyclobenzaprine (FLEXERIL) 10 mg tablet Take 1 tablet by mouth three times a day as needed for muscle spasm. - fluticasone-vilanterol (BREO ELLIPTA) 200-25 mcg/dose inhaler Inhale 1 Inhalation as instructed once daily. Inhale one puff once daily. DO NOT CLICK OPEN UNTIL READY FOR DOSE - EPINEPHrine (EPIPEN) 0.3 mg/0.3 mL auto-injector 0.3 ml subcutaneous as needed for severe allergic reaction/may substitute. - albuterol (PROVENTIL) 2.5 mg /3 mL (0.083 %) nebulizer solution Use 3 mL via nebulizer every 6 hours as needed for wheezing/shortness of breath. Use over 5-15minutes. - ergocalciferol 50,000 unit capsule (VITAMIN D2, DRISDOL) Take 1 capsule by mouth one time a week. - clotrimazole-betamethasone (LOTRISONE) cream APPLY TO AFFECTED AREA TWICE A DAY - multivitamin tablet Take 1 tablet by mouth once daily. - ascorbic acid (RANDA-C ORAL) Take 2,000 mg by mouth once daily. - Nebulizer 1 Each once daily. NEBUL (more content not included)... Normal [facility] Bacteria Ur Culton Bacteria identified Cx Nom (U) ORGANISM ID: 1 10,000 -<50,000 CFU/ml Normal urogenital brice Normal [facility] Comment on above: Performed By: #### 6 30-4 ####[facility] [id number] [place] [address] [place] CBC W Auto Differential pane l (Bld)on 12-22-2023 Basophils (Bld) [#/Vol] 0.07 10*3/uL Normal <0.11 [facility] Comment on above: Order Comment: Speci men Type: BLOOD SPECIMEN Ordering Facility: [facility] Address: [address] [place] [address] Performed By: #### 5 7021-8 #### [facility] CLIA [id number] [address] [place] [address] [place] Basophils/100 WBC (Bld) 0.8 % Normal [facility] Comment on above: Order Comment: Speci men Type: BLOOD SPECIMEN Ordering Facility: [facility] Address: [address] [place] [address] Performed By: #### 5 7021-8 #### [facility] CLIA [id number] [address] [place] [address] [place] Differential cell count method Nom (Bld) Auto Normal [facility] Comment on above: Order Comment: Speci men Type: BLOOD SPECIMEN Ordering Facility: [facility] Address: [address] [place] [address] Performed By: #### 5 7021-8 #### [facility] CLIA [id number] [address] [place] [address] [place] Eosinophils (Bld) [#/Vol] 0.72 10*3/uL High <0.46 [facility] Comment on above: Order Comment: Speci men Type: BLOOD SPECIMEN Ordering Facility: [facility] Address: [address] [place] [address] Performed By: #### 5 7021-8 #### [facility] CLIA [id number] [address] [place] [address] [place] Eosinophils/100 WBC (Bld) 8.5 % Normal [facility] Comment on above: Order Comment: Speci men Type: BLOOD SPECIMEN Ordering Facility: [facility] Address: [address] [place] [address] Performed By: #### 5 7021-8 #### [facility] CLIA [id number] [address] [place] [address] [place] Erythrocyte distribution width (RBC) [Ratio] 13.1 % Normal 11.5-15.0 [facility] Comment on above: Order Comment: Speci men Type: BLOOD SPECIMEN Ordering Facility: [facility] Address: [address] [place] [address] Performed By: #### 5 7021-8 #### [facility] CLIA [id number] [address] [place] [address] [place] Hematocrit (Bld) [Volume fraction] 43.8 % Normal 36.0-46.0 [facility] Comment on above: Order Comment: Speci men Type: BLOOD SPECIMEN Ordering Facility: [facility] Address: [address] [place] [address] Performed By: #### 5 7021-8 #### [facility] CLIA [id number] [address] [place] [address] [place] Hemoglobin (Bld) [Mass/Vol] 14.3 g/dL Normal 11.5-15.5 [facility] Comment on above: Order Comment: Speci men Type: BLOOD SPECIMEN Ordering Facility: [facility] Address: [address] [place] [address] Performed By: #### 5 7021-8 #### [facility] CLIA [id number] [address] [place] [address] [place] Immature granulocytes (Bld) [#/Vol] 0.04 10*3/uL Normal <0.10 [facility] Comment on above: Order Comment: Speci men Type: BLOOD SPECIMEN Ordering Facility: [facility] Address: [address] [place] [address] Performed By: #### 5 7021-8 #### [facility] CLIA [id number] [address] [place] [address] [place] Immature granulocytes/100 WBC (Bld) 0.5 % Normal [facility] Comment on above: Order Comment: Speci men Type: BLOOD SPECIMEN Ordering Facility: [facility] Address: [address] [place] [address] Performed By: #### 5 7021-8 #### [facility] CLIA [id number] [address] [place] [address] [place] Lymphocytes (Bld) [#/Vol] 2.02 10*3/uL Normal 1.00-4.00 [facility] Comment on above: Order Comment: Speci men Type: BLOOD SPECIMEN Ordering Facility: [facility] Address: [address] [place] [address] Performed By: #### 5 7021-8 #### [facility] CLIA [id number] [address] [place] [address] [place] Lymphocytes/100 WBC (Bld) 23.8 % Normal [facility] Comment on above: Order Comment: Speci men Type: BLOOD SPECIMEN Ordering Facility: [facility] Address: [address] [place] [address] Performed By: #### 5 7021-8 #### [facility] CLIA [id number] [address] [place] [address] [place] MCH (RBC) [Entitic mass] 28.3 pg Normal 26.0-34.0 [facility] Comment on above: Order Comment: Speci men Type: BLOOD SPECIMEN Ordering Facility: [facility] Address: [address] [place] [address] Performed By: #### 5 7021-8 #### [facility] CLIA [id number] [address] [place] [address] [place] MCHC (RBC) [Mass/Vol] 32.6 g/dL Normal 30.5-36.0 [facility] Comment on above: Order Comment: Speci men Type: BLOOD SPECIMEN Ordering Facility: [facility] Address: [address] [place] [address] Performed By: #### 5 7021-8 #### [facility] CLIA [id number] [address] [place] [address] [place] MCV (RBC) [Entitic vol] 86.6 fL Normal 80.0-100.0 [facility] Comment on above: Order Comment: Speci men Type: BLOOD SPECIMEN Ordering Facility: [facility] Address: [address] [place] [address] Performed By: #### 5 7021-8 #### [facility] CLIA [id number] [address] [place] [address] [place] Monocytes (Bld) [#/Vol] 0.63 10*3/uL Normal <0.87 [facility] Comment on above: Order Comment: Speci men Type: BLOOD SPECIMEN Ordering Facility: [facility] Address: [address] [place] [address] Performed By: #### 5 7021-8 #### [facility] CLIA [id number] [address] [place] [address] [place] Monocytes/100 WBC (Bld) 7.4 % Normal [facility] Comment on above: Order Comment: Speci men Type: BLOOD SPECIMEN Ordering Facility: [facility] Address: [address] [place] [address] Performed By: #### 5 7021-8 #### [facility] CLIA [id number] [address] [place] [address] [place] Neutrophils (Bld) [#/Vol] 5.01 10*3/uL Normal 1.45-7.50 [facility] Comment on above: Order Comment: Speci men Type: BLOOD SPECIMEN Ordering Facility: [facility] Address: [address] [place] [address] Performed By: #### 5 7021-8 #### [facility] CLIA [id number] [address] [place] [address] [place] Neutrophils/100 WBC (Bld) 59.0 % Normal [facility] Comment on above: Order Comment: Speci men Type: BLOOD SPECIMEN Ordering Facility: [facility] Address: [address] [place] [address] Performed By: #### 5 7021-8 #### [facility] CLIA [id number] [address] [place] [address] [place] Nucleated RBC (Bld) [#/Vol] 10*3/uL Normal <0.01 [facility] Comment on above: Order Comment: Speci men Type: BLOOD SPECIMEN Ordering Facility: [facility] Address: [address] [place] [address] Performed By: #### 5 7021-8 #### [facility] CLIA [id number] [address] [place] [address] [place] Nucleated RBC/100 WBC (Bld) [Ratio] 0.0 /100 WBC Normal [facility] Comment on above: Order Comment: Speci men Type: BLOOD SPECIMEN Ordering Facility: [facility] Address: [address] [place] [address] Performed By: #### 5 7021-8 #### [facility] CLIA [id number] [address] [place] [address] [place] Platelet mean volume (Bld) [Entitic vol] 10.3 fL Normal 9.0-12.7 [facility] Comment on above: Order Comment: Speci men Type: BLOOD SPECIMEN Ordering Facility: [facility] Address: [address] [place] [address] Performed By: #### 5 7021-8 #### [facility] CLIA [id number] [address] [place] [address] [place] Platelets (Bld) [#/Vol] 495 10*3/uL High 150-400 [facility] Comment on above: Order Comment: Speci men Type: BLOOD SPECIMEN Ordering Facility: [facility] Address: [address] [place] [address] Performed By: #### 5 7021-8 #### [facility] CLIA [id number] [address] [place] [address] [place] RBC (Bld) [#/Vol] 5.06 10*6/uL Normal 3.90-5.20 [facility] Comment on above: Order Comment: Speci men Type: BLOOD SPECIMEN Ordering Facility: [facility] Address: [address] [place] [address] Performed By: #### 5 7021-8 #### [facility] CLIA [id number] [address] [place] [address] [place] WBC (Bld) [#/Vol] 8.49 10*3/uL Normal 3.70-11.00 [facility] Comment on above: Order Comment: Speci men Type: BLOOD SPECIMEN Ordering Facility: [facility] Address: [address] [place] [address] Performed By: #### 5 7021-8 #### [facility] CLIA [id number] [address] [place] [address] OF [place] Juan 12-22-2023 CNOV Office Visit (FAMPWS ) -- DON RODAS ([id number]) 1990 F Date Time Provider Department 12/22/23 8:00 AM ARIANA BHAGATWS During your visit today, we recorded the following information about you: Pulse Respiration Blood pressure Weight 84/minute 18/minute 116/62 105.2 kg Ariana Bhagat MD 12/22/2023 8:24 AM Signed Patient presents with: Follow Up HPI: Patient presents today for office visit for routine 3 month exam. Patient reports when she increased the dosage of Zepbound to 7.5 mg she has been experiencing right sided flank pain. Happens rarely. Comes and goes. Happens daily. Worse with eating. Some nausea which is normal with that med. No vomiting or diarrhea. She feels it is helping with her weight. No fever or chills. No urinary issues. Pain lasts for a few hours. Her next dose is due Sunday. No urinary symptoms. Mild heartburn. Occurs with spicy foods. Breathing is good. Still taking lipitor and vit d MEDICATIONS: Current Outpatient Medications Medication Sig albuterol HFA (PROVENTIL HFA, VENTOLIN HFA) 90 mcg/actuation inhaler Inhale 2 Puffs as instructed every 4 hours as needed for wheezing/shortness of breath. nystatin (MYCOSTATIN) cream Apply 1 application to affected area two times a day. fluticasone-vilanterol (BREO ELLIPTA) 200-25 mcg/dose inhaler Inhale 1 Inhalation as instructed once daily. Inhale one puff once daily. DO NOT CLICK OPEN UNTIL READY FOR DOSE EPINEPHrine (EPIPEN) 0.3 mg/0.3 mL auto-injector 0.3 ml subcutaneous as needed for severe allergic reaction/may substitute. albuterol (PROVENTIL) 2.5 mg /3 mL (0.083 %) nebulizer solution Use 3 mL via nebulizer every 6 hours as needed for wheezing/shortness of breath. Use over 5-15minutes. ergocalciferol 50,000 unit capsule (VITAMIN D2, DRISDOL) Take 1 capsule by mouth one time a week. clotrimazole-betamethasone (LOTRISONE) cream APPLY TO AFFECTED AREA TWICE A DAY multivitamin tablet Take 1 tablet by mouth once daily. ascorbic acid (RANDA-C ORAL) Take 2,000 mg by mouth once daily. tirzepatide, weight loss (ZEPBOUND) 7.5 mg/0.5 mL pen injector Inject 7.5 mg subcutaneously one time a week. benzonatate (TESSALON PERLES) 100 mg capsule Take 1 capsule by mouth three times a day as needed for cough. cyclobenzaprine (FLEXERIL) 10 mg tablet Take 1 tablet by mouth three times a day as needed for muscle spasm. atorvastatin (LIPITOR) 20 mg tablet Take 1 tablet by mouth daily at bedtime. For cholesterol. Nebulizer 1 Each once daily. NEBULIZER FOR HOME USE. DX: asthma J 45.075 No current facility-administered medications for this visit. ALLERGIES: ALLERGIES Allergen Reactions Shellfish Derived Anaphylaxis Keflex [Cephalexin] Rash Latex Rash Prevnar 20 (Pf) [Pn* Other: See Comments Allergies. PAST MEDICAL HISTORY Diagnosis Date Allergy 09/11/2013 Asthma 09/27/2012 Excessive daytime sleepiness 08/16/2016 Fibrocystic breast disease in female 09/11/2013 Hyperlipidemia LDL goal <130 07/31/2014 Morbid obesity (HCC) Rosacea 09/27/2012 Vitamin D deficiency 08/04/2014 PAST SURGICAL HISTORY Procedure Laterality Date COLONOSCOPY SCREENING 11/28/2021 focal 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 EGD W/O BRSH SPEC VARICIES INJ 11/28/2021 Normal REMOVE TONSILS/ADENOIDS,12+ Y/O TONSILLECTOMY HX FAMILY HISTORY Problem Relation Age of Onset Asthma Mother Hyperlipidemia Mother Osteoporosis Mother Diabetes Father Psoriasis Father Arthritis Father Diabetes Maternal Grandmother Heart Maternal Grandmother tachycardia Hypertension Maternal Grandmother None Maternal Grandfather Asthma Paternal Grandmother Stroke Paternal Grandmother Colon Cancer Maternal Uncle Social History Tobacco Use Smoking status: Never Smokeless tobacco: Never Vaping Use Vaping status: Never Used Substance Use Topics Alcohol use: No Drug use: No Reviewed current medications, allergies, past medical history, surgical history, family history and social history today. REVIEW OF SYSTEMS All other reviewed and negative other than HPI. HEALTH MAINTENANCE: Reviewed health maintenance issues today and recommended the following in detail. Depression Screening Never done VITALS: BP 116/62 Pulse 84 Resp 18 Wt 105.2 kg (232 lb) LMP 04/14/2023 (Exact Date) SpO2 93% BMI 42.43 kg/m? Last 4 Encounter Wt Readings: Date: Wt: 12/22/2023 105.2 kg (232 lb) 09/14/2023 102.5 kg (225 lb 15.5 oz) 07/28/2023 104.3 kg (230 lb) 07/20/2023 106.3 kg (234 lb 6.4 oz) PHYSICAL EXAMINATION: General appearance: Well appearing, alert, in no acute distress, well-hydrated, well nourished. Skin: Skin color, texture, turgor normal, no suspicious rashes or lesions Head: Normocephalic, no masses, lesions, tenderness or abnormalities Back: no cva tenderness. Mild muscular tenderness on ri (more content not included)... Normal [facility] Comprehensive metabolic 2000 panelon 12-22-2023 Albumin [Mass/Vol] 4.1 g/dL Normal 3.9-4.9 [facility] Comment on above: Order Comment: Speci men Type: BLOOD SPECIMEN Ordering Facility: [facility] Address: [address] [place] [address] Performed By: #### 3 040-3, 24670-7, LIPNF #### [facility] CLIA [id number] [address] [place] [address] [place] ALP [Catalytic activity/Vol] 73 U/L Normal 34-123 [facility] Comment on above: Order Comment: Speci men Type: BLOOD SPECIMEN Ordering Facility: [facility] Address: [address] [place] [address] Performed By: #### 3 040-3, 69875-7, LIPNF #### [facility] CLIA [id number] [address] [place] [address] [place] ALT [Catalytic activity/Vol] 7 U/L Normal 7-38 [facility] Comment on above: Order Comment: Speci men Type: BLOOD SPECIMEN Ordering Facility: [facility] Address: [address] [place] [address] Performed By: #### 3 040-3, 57029-2, LIPNF #### [facility] CLIA [id number] [address] [place] [address] [place] Anion gap [Moles/Vol] 11 mmol/L Normal 8-15 [facility] Comment on above: Order Comment: Speci men Type: BLOOD SPECIMEN Ordering Facility: [facility] Address: [address] [place] [address] Performed By: #### 3 040-3, 52437-5, LIPNF #### [facility] CLIA [id number] [address] [place] [address] [place] AST [Catalytic activity/Vol] 14 U/L Normal 13-35 [facility] Comment on above: Order Comment: Speci men Type: BLOOD SPECIMEN Ordering Facility: [facility] Address: [address] [place] [address] Performed By: #### 3 040-3, 94608-5, LIPNF #### [facility] CLIA [id number] [address] [place] [address] [place] Bilirubin [Mass/Vol] 0.2 mg/dL Normal 0.2-1.3 [facility] Comment on above: Order Comment: Speci men Type: BLOOD SPECIMEN Ordering Facility: [facility] Address: [address] [place] [address] Performed By: #### 3 040-3, 24911-6, LIPNF #### [facility] CLIA [id number] [address] [place] [address] [place] Calcium [Mass/Vol] 9.3 mg/dL Normal 8.5-10.2 [facility] Comment on above: Order Comment: Speci men Type: BLOOD SPECIMEN Ordering Facility: [facility] Address: [address] [place] [address] Performed By: #### 3 040-3, 49862-9, LIPNF #### [facility] CLIA [id number] [address] [place] [address] [place] Chloride [Moles/Vol] 105 mmol/L Normal 98-107 [facility] Comment on above: Order Comment: Speci men Type: BLOOD SPECIMEN Ordering Facility: [facility] Address: [address] [place] [address] Performed By: #### 3 040-3, 56721-5, LIPNF #### [facility] CLIA [id number] [address] [place] [address] [place] CO2 [Moles/Vol] 23 mmol/L Normal 22-30 [facility] Comment on above: Order Comment: Speci men Type: BLOOD SPECIMEN Ordering Facility: [facility] Address: [address] [place] [address] Performed By: #### 3 040-3, 35931-9, LIPNF #### [facility] CLIA [id number] [address] [place] [address] [place] Creatinine [Mass/Vol] 0.72 mg/dL Normal 0.58-0.96 [facility] Comment on above: Order Comment: Speci men Type: BLOOD SPECIMEN Ordering Facility: [facility] Address: [address] [place] [address] Performed By: #### 3 040-3, 67466-9, LIPNF #### [facility] CLIA [id number] [address] [place] [address] [place] Creatinine and Glomerular filtration rate.predicted panel (S/P/Bld) 113 mL/min/1.73m??? Normal >=60 [facility] Comment on above: Order Comment: Speci men Type: BLOOD SPECIMEN Ordering Facility: [facility] Address: [address] [place] [address] Result Comment: Camila mated Glomerular Filtration Rate (eGFR) is calculated using the 2020 CKD-EPI creatinine equation. This equation utilizes serum creatinine, sex, and age as parameters. The creatinine assay has traceable calibration to isotope dilution-mass spectrometry. Refer to KDIGO guidelines for clinical interpretation. In patients with unstable renal function, e.g. those with acute kidney injury, the eGFR may not accurately reflect actual GFR. Performed By: #### 3 040-3, 17383-0, LIPNF #### [facility] CLIA [id number] [address] [place] [address] [place] Glucose [Mass/Vol] 86 mg/dL Normal 74-99 [facility] Comment on above: Order Comment: Speci men Type: BLOOD SPECIMEN Ordering Facility: [facility] Address: [address] [place] [address] Result Comment: The [place] [employer] (ADA) provides guidance for cutoff values for fasting glucose and random glucose. The ADA defines fasting as no caloric intake for at least 8 hours. Fasting plasma glucose results between 100 to 125 mg/dL indicate increased risk for diabetes (prediabetes). Fasting plasma glucose results greater than or equal to 126 mg/dL meet the criteria for diagnosis of diabetes. In the absence of unequivocal hyperglycemia, results should be confirmed by repeat testing. In a patient with classic symptoms of hyperglycemia or hyperglycemic crisis, random plasma glucose results greater than or equal to 200 mg/dL meet the criteria for diagnosis of diabetes. Reference: Standards of Medical Care in Diabetes 2016, [place] [employer]. Diabetes Care. 2016.39(Suppl 1). Performed By: #### 3 040-3, 40320-1, LIPNF #### [facility] CLIA [id number] [address] [place] [address] [place] Potassium [Moles/Vol] 4.1 mmol/L Normal 3.7-5.1 [facility] Comment on above: Order Comment: Speci men Type: BLOOD SPECIMEN Ordering Facility: [facility] Address: [address] [place] [address] Performed By: #### 3 040-3, 96215-9, LIPNF #### [facility] CLIA [id number] [address] [place] [address] [place] Protein [Mass/Vol] 7.1 g/dL Normal 6.3-8.0 [facility] Comment on above: Order Comment: Speci men Type: BLOOD SPECIMEN Ordering Facility: [facility] Address: [address] [place] [address] Performed By: #### 3 040-3, 70520-8, LIPNF #### [facility] CLIA [id number] [address] [place] [address] [place] Sodium [Moles/Vol] 139 mmol/L Normal 136-144 [facility] Comment on above: Order Comment: Speci men Type: BLOOD SPECIMEN Ordering Facility: [facility] Address: [address] [place] [address] Performed By: #### 3 040-3, 83079-1, LIPNF #### [facility] CLIA [id number] [address] [place] [address] [place] Urea nitrogen [Mass/Vol] 14 mg/dL Normal 7-21 [facility] Comment on above: Order Comment: Speci men Type: BLOOD SPECIMEN Ordering Facility: [facility] Address: [address] [place] [address] Performed By: #### 3 040-3, 03170-1, LIPNF #### [facility] CLIA [id number] [address] [place] [address] [place] LIPID PANEL, NONFASTINGon Cholesterol [Mass/Vol] 212 mg/dL High <200 [facility] Comment on above: Order Comment: Speci men Type: BLOOD SPECIMEN Ordering Facility: [facility] Address: [address] [place] [address] Result Comment: <200 mg/dL, Desirable 200-239 mg/dL, Borderline high >239 mg/dL, High Performed By: #### 3 040-3, 03105-8, LIPNF #### [facility] CLIA [id number] [address] [place] [address] [place] HDL CHOLESTEROL, NF 52 mg/dL Normal >39 [facility] Comment on above: Order Comment: Speci men Type: BLOOD SPECIMEN Ordering Facility: [facility] Address: [address] [place] [address] Result Comment: 40-5 9 mg/dL, Acceptable >59 mg/dL, High: Negative risk factor for coronary heart disease <40 mg/dL, Low: Positive risk factor for coronary heart disease Performed By: #### 3 040-3, 35869-8, LIPNF #### [facility] CLIA [id number] [address] [place] [address] [place] LDL CHOLESTEROL, NF 137 mg/dL High <100 [facility] Comment on above: Order Comment: Speci men Type: BLOOD SPECIMEN Ordering Facility: [facility] Address: [address] [place] [address] Result Comment: <100 mg/dL, Optimal 100-129 mg/dL, Near optimal/above optimal 130-159 mg/dL, Borderline high 160-189 mg/dL, High >189 mg/dL, Very high Secondary prevention optimal LDL Cholesterol levels are recommended to be < 70 mg/dL Performed By: #### 3 040-3, 62910-3, LIPNF #### [facility] CLIA [id number] [address] [place], [place] [address] [place] LDL/HDL RATIO, NF 2.63 mg/dL High <2.54 [facility] Comment on above: Order Comment: David scout Type: BLOOD SPECIMEN Ordering Facility: [facility] Address: [address] [place] [address] Result Comment: Refe rence: 1. National Cholesterol Education Program ATP III Guideline At-A-Glance Quick Desk Reference: National Heart, Lung, and Blood [place]. National Institutes of Health. 2001: NIH Publication No. 01-3305. 2. An International Atherosclerosis Society position paper: global recommendations for the management of dyslipidemia: executive summary, Atherosclerosis. 2014: 232(2):410-413. Performed By: #### 3 040-3, 50357-6, LIPNF #### [facility] CLIA [id number] [address] [place] [address] [place] NON HDL CHOL, NF 160 mg/dL High <130 [facility] Comment on above: Order Comment: Nickiclint [place] Type: BLOOD SPECIMEN Ordering Facility: [facility] Address: [address] [place] [address] Result Comment: <130 mg/dL, Optimal 130-159 mg/dL, Near optimal/above optimal 160-189 mg/dL, Borderline high 190-219 mg/dL, High >219 mg/dL, Very high Secondary prevention optimal non HDL Cholesterol levels are recommended to be <100 mg/dL Performed By: #### 3 040-3, 74211-6, LIPNF #### [facility] CLIA [id number] [address] [place] [address] [place] T CHOL/HDL RATIO NF 4.08 mg/dL Normal <5.10 [facility] Comment on above: Order Comment: Speci men Type: BLOOD SPECIMEN Ordering Facility: [facility] Address: [address] [place] [address] Performed By: #### 3 040-3, 06061-8, LIPNF #### [facility] CLIA [id number] [address] [place] [address] [place] TRIGLYCERIDES, NF 116 mg/dL Normal <150 [facility] Comment on above: Order Comment: Speci men Type: BLOOD SPECIMEN Ordering Facility: [facility] Address: [address] [place] [address] Result Comment: <150 mg/dL, Normal 150-199 mg/dL, Borderline high 200-499 mg/dL, High >499 mg/dL, Very high Performed By: #### 3 040-3, 05473-4, LIPNF #### [facility] CLIA [id number] [address] [place] [address] [place] VLDL CHOLESTEROL, NF 23 mg/dL Normal <30 [facility] Comment on above: Order Comment: Speci men Type: BLOOD SPECIMEN Ordering Facility: [facility] Address: [address] [place] [address] Performed By: #### 3 040-3, 47277-8, LIPNF #### [facility] CLIA [id number] [address] [place] [address] [place] Lipase SerPl-cCncon --20 24 Lipase [Catalytic activity/Vol] 23 U/L Normal 16-61 [facility] Comment on above: Order Comment: Speci men Type: BLOOD SPECIMEN Ordering Facility: [facility] Address: [address] [place] [address] Performed By: #### 3 040-3, 91610-1, LIPNF #### [facility] CLIA [id number] [address] [place] [address] [place] Urinalysis complete panel (U )on 12-22-2023 Bacteria LM.HPF (Urine sed) [#/Area] Negative Normal Negative [facility] Comment on above: Order Comment: Speci men Type: URINE SPECIMEN Ordering Facility: [facility] Address: [address] [place] [address] Performed By: #### 2 4356-8 #### [facility] CLIA [id number] [address] [place] [address] [place] Bilirubin Ql (U) Negative Normal Negative [facility] Comment on above: Order Comment: Speci men Type: URINE SPECIMEN Ordering Facility: [facility] Address: [address] [place] [address] Performed By: #### 2 4356-8 #### [facility] CLIA [id number] [address] [place] [address] [place] CALCIUM OXALATE CRYSTALS (UA) Moderate Abnormal None Seen [facility] Comment on above: Order Comment: Speci men Type: URINE SPECIMEN Ordering Facility: [facility] Address: [address] [place] [address] Performed By: #### 2 4356-8 #### [facility] CLIA [id number] [address] [place] [address] [place] Clarity (Unsp spec) Clear Normal Clear [facility] Comment on above: Order Comment: Speci men Type: URINE SPECIMEN Ordering Facility: [facility] Address: [address] [place] [address] Performed By: #### 2 4356-8 #### [facility] CLIA [id number] [address] [place] [address] [place] Color (U) Yellow Normal Yellow [facility] Comment on above: Order Comment: Speci men Type: URINE SPECIMEN Ordering Facility: [facility] Address: [address] [place] [address] Performed By: #### 2 4356-8 #### [facility] CLIA [id number] [address] [place] [address] [place] Epithelial cells LM.HPF (Urine sed) [#/Area] Moderate Normal [facility] Comment on above: Order Comment: Speci men Type: URINE SPECIMEN Ordering Facility: [facility] Address: [address] [place] [address] Performed By: #### 2 4356-8 #### [facility] CLIA [id number] [address] [place] [address] [place] Glucose Test strip (U) [Mass/Vol] Negative Normal Negative [facility] Comment on above: Order Comment: Speci men Type: URINE SPECIMEN Ordering Facility: [facility] Address: [address] [place] [address] Performed By: #### 2 4356-8 #### [facility] CLIA [id number] [address] [place] [address] [place] Hemoglobin Ql (U) Negative Normal Negative [facility] Comment on above: Order Comment: Speci men Type: URINE SPECIMEN Ordering Facility: [facility] Address: [address] [place] [address] Performed By: #### 2 4356-8 #### [facility] CLIA [id number] [address] [place] [address] [place] Hyaline casts (Urine sed) [#/Area] 0 /[LPF] Normal 0 /LPF [facility] Comment on above: Order Comment: Speci men Type: URINE SPECIMEN Ordering Facility: [facility] Address: [address] [place] [address] Performed By: #### 2 4356-8 #### [facility] CLIA [id number] [address] [place] [address] [place] Ketones Ql (U) Negative Normal Negative [facility] Comment on above: Order Comment: Speci men Type: URINE SPECIMEN Ordering Facility: [facility] Address: [address] [place] [address] Performed By: #### 2 4356-8 #### [facility] CLIA [id number] [address] [place] [address] [place] Leukocyte esterase Test strip Ql (U) Negative Normal Negative [facility] Comment on above: Order Comment: Speci men Type: URINE SPECIMEN Ordering Facility: [facility] Address: [address] [place] [address] Performed By: #### 2 4356-8 #### [facility] CLIA [id number] [address] [place] [address] [place] Nitrite Ql (U) Negative Normal Negative [facility] Comment on above: Order Comment: Speci men Type: URINE SPECIMEN Ordering Facility: [facility] Address: [address] [place] [address] Performed By: #### 2 4356-8 #### [facility] CLIA [id number] [address] [place] [address] [place] pH (U) 5.5 [pH] Normal <8.5 [facility] Comment on above: Order Comment: Speci men Type: URINE SPECIMEN Ordering Facility: [facility] Address: [address] [place] [address] Performed By: #### 2 4356-8 #### [facility] CLIA [id number] [address] [place] [address] [place] Protein (U) [Mass/Vol] Negative Normal Negative [facility] Comment on above: Order Comment: Speci men Type: URINE SPECIMEN Ordering Facility: [facility] Address: [address] [place] [address] Performed By: #### 2 4356-8 #### [facility] CLIA [id number] [address] [place] [address] [place] RBC LM.HPF (Urine sed) [#/Area] 3-5 /HPF Abnormal 0-2 /HPF [facility] Comment on above: Order Comment: Speci men Type: URINE SPECIMEN Ordering Facility: [facility] Address: [address] [place] [address] Performed By: #### 2 4356-8 #### [facility] CLIA [id number] [address] [place] [address] [place] Specific gravity (U) [Rel density] 1.032 High 1.005-1.030 [facility] Comment on above: Order Comment: Speci men Type: URINE SPECIMEN Ordering Facility: [facility] Address: [address] [place] [address] Performed By: #### 2 4356-8 #### [facility] CLIA [id number] [address] [place] [address] [place] Urobilinogen Ql (U) 0.2 EU/dL Normal 0.2-1.0 EU/dL [facility] Comment on above: Order Comment: Speci men Type: URINE SPECIMEN Ordering Facility: [facility] Address: [address] [place] [address] Performed By: #### 2 4356-8 #### [facility] CLIA [id number] [address] [place] [address] [place] WBC LM.HPF (Urine sed) [#/Area] 0-5 /HPF Normal 0-5 /HPF [facility] Comment on above: Order Comment: Speci men Type: URINE SPECIMEN Ordering Facility: [facility] Address: [address] [place] [address] Performed By: #### 2 4356-8 #### [facility] CLIA [id number] [address] [place] [address] [place] Urgent Care Visit Reporton 0 10-04-2023 Urgent Care Visit Report [facility] [address], [address] [place] [address] OFFICE VISIT Date of Service: 10/04/23 MR#: [id number] Acct: [id number] Name: DON RODAS Rep #: [id number] : 1990 Provider: CAMPBELL Gonsalez Age/Sex: 33/F Location: [facility] [place] Status: Signed Intake Vital Signs 04/10/23 17:06 10/04/23 17:29 Height 5 ft 2 in BP 124/70 H Blood Pressure Location Lt brachial Position Sitting Respiration 16 Pulse 67 Pulse Source NIBP Temp 98.0 F Temp Source Temporal Pulse Oximetry (%) 98 Oxygen Delivery Method room air Intake Visit Reasons: SORE THROAT Chief Complaint: fever, congestion, ST Stringer 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: No Is patient in pain?: No Allergies Fish Containing Products Allergy (Severe, Verified 10/04/23 17:30) Anaphylaxis shellfish derived Allergy (Severe, Verified 10/04/23 17:30) Anaphylaxis azithromycin Allergy (Mild, Verified 10/04/23 17:30) Rash cephalexin monohydrate (From Keflex) Allergy (Verified 10/04/23 17:30) Rash iodine Allergy (Verified 10/04/23 17:30) Anaphylaxis latex Allergy (Verified 10/04/23 17:30) Unknown pneumococcal vaccine (From Prevnar 20 (PF)) Allergy (Verified 10/04/23 17:30) Rash Is last menstrual period known: No Post menopausal: No Patient : No Have you fallen in the past year?: No Nurse's Note: fever, congestion, ST x 2 days. denies cough. concern for strep PFSH Medical History (Updated 10/04/23 @ 17:58 by CAMPBELL Plummer) Asthma Surgical History History of tonsillectomy Family History Mother Diverticulitis IBS (irritable bowel syndrome) Other Arthritis Asthma Hyperlipemia Osteoporosis Thyroid disorder Social History Smoking Status: Never smoker alcohol intake: never substance use type: does not use caffeine: Yes what type of physical activity do you participate in: none and walking seatbelt use: always do you feel safe at home: Yes additional social history: Single-works at [employer] HPI HPI Chief Complaint: fever, congestion, ST Details: DON RODAS, is a 33 F who presents to the office today for complaint of fever, congestion and sore throat for the past 2 days. Patient does state having history of strep however does also have a history of asthma. Patient denies hemoptysis, shortness of breath or difficulty breathing. She has been using her inhaler which keeps her from having the shortness of breath. No loss of taste or smell. No nausea, vomiting or diarrhea. No other associated symptoms or alleviating/aggravating factors. ROS Const Constitutional: No other (6 system ROS completed with pertinent findings in the HPI otherwise normal.) Exam Const General: cooperative and well developed HENMT Head: normal to inspection and atraumatic Ears: hearing grossly normal bilaterally Nose: nasal discharge clear Face and sinus: normal facial exam Mouth: oral mucosae normal Throat: abnormal tonsil bilaterally hypertrophy 1+ Resp Effort Inspection: normal respiratory effort and no audible wheezes Auscultation: Bilateral: Clear to Auscultation Cardio Palpation: normal PMI Rate: regular rate Rhythm: regular rhythm Neuro General: patient alert and CN's II-XI intact bilaterally Psych Appearance: grossly normal Mental Status: mental status grossly normal Results POC Alicja Rapid Strep POC Alicja Rapid Strep Negative Last Edit by Tala Singh on 10/04/23 17:45 POC ALICJA Covid FluAB PCR POC Alicja Covid PCR Not Detected Last Edit by Tala Singh on 10/04/23 17:52 POC ALICJA FLU NOT DETECTED FLU A B Last Edit by Tala Singh on 10/04/23 17:52 Coding Level of Care Code Off vis,est,level 3 Diagnoses Mild intermittent asthmatic bronchitis with acute exacerbation J45.21 Asthma severity: mild Asthma persistence: intermittent Contact with or suspected exposure to other viral communicable disease Z20.828 Assessment and Plan Assessment and Plan (1) Asthmatic bronchitis with exacerbation: Status: Acute Qualifiers: Asthma severity: mild Asthma persistence: intermittent Qualified Code(s): J45.21 - Mild intermittent asthma with (acute) exacerbation Plan: Patient tested negative for strep and COVID in the office today. Prednisone as prescribed today. Encouraged to get plenty of rest, drink lots of clear liquids, and use Tylenol or Ibuprofen (unless contraindicated) for fever and comfort. Patient also educated on other symptomatic management techniques. To be seen in 7-10 days if no improvement; sooner if worsening of symptoms. Patient advised of potential red flags and when appropriate to report to the ED. Ela (more content not included)... Normal [facility] XR Knee - left 4 Viewson IMPRESSION: 1. Stable bone lesion distal left femur most suggestive of mineralized fibrous lesion by appearance and stability Cobol Engineer: PSCB Transcribe Date/Time: Sep 18 2023 8:09P Dictated by : RHINA MEEK MD This examination was interpreted and the report reviewed and electronically signed by: RHINA MEEK MD on Sep 18 2023 8:11PM [facility] DIVISION OF RADIOLOGY * * *Final Report* * * DATE OF EXAM: Sep 14 2023 12:10PM WOX 5202 - XR KNEE 4V AP/PA BOTH+LAT/ODALIS LT / PROCEDURE REASON: Bone lesion * * * * Physician Interpretation * * * * KNEE RADIOGRAPHS - LEFT HISTORY: Bone lesion TECHNOLOGIST PROVIDED HISTORY (if applicable): Bone lesion of left knee TECHNIQUE: XR KNEE 4V AP/PA BOTH+LAT/ODALIS LT COMPARISON: Previous serial radiographs dating back to 10/22/2018 RESULT: Left knee: Similar/stable slightly expansile bone lesion distal medial femoral metaphysis with intrinsic sclerosis that appears less prominent than on previous studies. No aggressive features. Otherwise normal joint spaces and no joint effusion. DIVISION OF RADIOLOGY [facility]18/[facility] * * *Final Report* * * DATE OF EXAM: Sep 14 2023 12:10PM WOX 5202 - XR KNEE 4V AP/PA BOTH+LAT/ODALIS LT / PROCEDURE REASON: Bone lesion * * * * Physician Interpretation * * * * KNEE RADIOGRAPHS - LEFT HISTORY: Bone lesion TECHNOLOGIST PROVIDED HISTORY (if applicable): Bone lesion of left knee TECHNIQUE: XR KNEE 4V AP/PA BOTH+LAT/ODALIS LT COMPARISON: Previous serial radiographs dating back to 10/22/2018 RESULT: Left knee: Similar/stable slightly expansile bone lesion distal medial femoral metaphysis with intrinsic sclerosis that appears less prominent than on previous studies. No aggressive features. Otherwise normal joint spaces and no joint effusion. IMPRESSION IMPRESSION: 1. Stable bone lesion distal left femur most suggestive of mineralized fibrous lesion by appearance and stability Cobol Engineer: RORY Transcribe Date/Time: Sep 18 2023 8:09P Dictated by : RHINA MEEK MD This examination was interpreted and the report reviewed and electronically signed by: RHINA MEEK MD on Sep 18 2023 8:11PM EST [facility] XR Knee - left 4 ViewsOrdere d By: [facility] Provider on 09-18-2023 [facility] CNOVon 09-14-2023 CNOV Office Visit (FAMPWS ) -- DON RODAS ([id number]) 1990 F Date Time Provider Department 09/14/23 11:20 AM [facility] During your visit today, we recorded the following information about you: Pulse Blood pressure Weight Height 70/minute 98/60 102.5 kg 1.575 m Ariana Bhagat MD 09/14/2023 12:52 PM Signed Patient presents with: Follow Up HPI: Patient presents today for office visit for follow up. Continues on Zepbound 5mg weekly. Day after injection complains of belching with odor like rotten eggs. Other than that tolerating med well. Has lost approx 9lbs since last visit. Denies chest pain and shortness of breath. Denies any swelling. Watching her diet. Discussed her platelets. Saw hematology remotely. Has not changed in over 10 years. Is due for repeat sleep study in lab and declined. Was diagnosed in [place] with lupus. Work up here was negative. Saw rheum. Latest Ref Rng 07/21/2023 WBC 3.70 - 11.00 k/uL 9.23 RBC 3.90 - 5.20 m/uL 5.09 Hemoglobin 11.5 - 15.5 g/dL 14.4 Hematocrit 36.0 - 46.0 % 44.0 MCV 80.0 - 100.0 fL 86.4 MCH 26.0 - 34.0 pg 28.3 MCHC 30.5 - 36.0 g/dL 32.7 RDW-CV 11.5 - 15.0 % 13.0 Platelet Count 150 - 400 k/uL 438 (H) MPV 9.0 - 12.7 fL 10.5 Neut% % 64.2 Abs Neut (ANC) 1.45 - 7.50 k/uL 5.92 Lymph% % 20.0 Abs Lymph 1.00 - 4.00 k/uL 1.85 Wood% % 7.6 Abs Wood <0.87 k/uL 0.70 Eosin% % 7.5 Abs Eosin <0.46 k/uL 0.69 (H) Baso% % 0.4 Abs Baso <0.11 k/uL 0.04 Immature Gran %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 34.0 pg [facility] MCHC (RBC) [Mass/Vol] 32.0 g/dL 30.5 - 36.0 g/dL [facility] MCV (RBC) [Entitic vol] 87.0 fL 80.0 - 100.0 fL [facility] Monocytes (Bld) [#/Vol] 0.49 10*3/uL <0.87 k/uL [facility] Monocytes/100 WBC (Bld) 5.6 % [facility] Neutrophils (Bld) [#/Vol] 5.84 10*3/uL 1.45 - 7.50 k/uL [facility] Neutrophils/100 WBC (Bld) 67.2 % [facility] Nucleated RBC (Bld) [#/Vol] <0.01 k/uL [facility] Nucleated RBC/100 WBC (Bld) [Ratio] 0.0 /100 WBC [facility] Platelet mean volume (Bld) [Entitic vol] 10.7 fL 9.0 - 12.7 fL [facility] Platelets (Bld) [#/Vol] 432 10*3/uL High 150 - 400 k/uL [facility] RBC (Bld) [#/Vol] 5.24 10*6/uL High 3.90 - 5.2 0 m/uL [facility] WBC (Bld) [#/Vol] 8.71 10*3/uL 3.70 - 11.00 k/uL [facility] Absolute lymphocyte countOrd ered By: Iris Fuentes on 07-23-2022 Lymphocytes Auto (Unsp spec) [#/Vol] 2.83 10*3/uL 0.83-4.51 [facility] Basophil percentageOrdered B y: Iris Fuentes on 07-23-2022 Basophil percentage 0-5 SEEN /hpf 0-5 [facility] Basophils/100 WBC (Bld) 0.8 % 0-1 [facility] Bilirubin [Mass/Vol] 0.40 mg/dL 0.20-1.00 [facility] Comment on above: For patients on eltr ombopag therapy, use of Dimension [place] TBIL is not recommended. Chloride [Moles/Vol] 108 mmol/L 98-107 [facility] Eosinophils/100 WBC (Bld) 8.3 % 0-5 [facility] Glucose [Mass/Vol] 81 mg/dL 74-106 [facility] Neutrophils (Bld) [#/Vol] 6.0 10*3/uL 2.0-7.7 [facility] Neutrophils/100 WBC (Bld) 56.0 % 47-70 [facility] Potassium [Moles/Vol] 4.0 mmol/L 3.5-5.1 [facility] Protein [Mass/Vol] 7.7 g/dL 6.4-8.2 [facility] Sodium [Moles/Vol] 138 mmol/L 136-145 [facility] WBC (Bld) [#/Vol] 10.7 10*3/uL 4.4-11.0 [facility] Bilirubin Test strip Ql (U)O rdered By: Iris Fuentes on 07-23-2022 Bilirubin Ql (U) Negative Negative [facility] Blood erythrocytes count (nu mber/volume)Ordered By: Iris Fuentes on 07-23-2022 RBC (Bld) [#/Vol] 5.31 10*6/uL 4.2-5.4 [facility] Blood hemoglobin measurement (mass/volume)Ordered By: Iris Fuentes on 07-23-2022 Hemoglobin (Bld) [Mass/Vol] 15.1 g/dL 12.0-15.0 [facility] Blood lymphocytes/100 leukoc ytesOrdered By: Iris Fuentes on 07-23-2022 Lymphocytes/100 WBC (Bld) 26.5 % 19-41 [facility] Blood monocytes/100 leukocyt esOrdered By: Iris Fuentes on 07-23-2022 Monocytes/100 WBC (Bld) 8.0 % 0-10 [facility] Blood platelet mean volumeOr dered By: Iris Fuentes on 07-23-2022 Platelet mean volume (Bld) [Entitic vol] 10.4 fL 6.2-12.0 [facility] Determination of erythrocyte mean corpuscular volume (MCV)Ordered By: Iris Fuentes on 07-23-2022 MCV (RBC) [Entitic vol] 90.0 fL 81-99 [facility] Hematocrit Auto (Bld) [Volum e fraction]Ordered By: Iris Fuentes on 07-23-2022 Hematocrit (Bld) [Volume fraction] 47.8 % 37-47 [facility] Ketones Test strip Ql (U)Ord ered By: Iris Fuentes on 07-23-2022 Ketones Ql (U) 5 mg/dl Negative [facility] Laboratory - Chemistry and C hemistry - challengeOrdered By: Iris Fuentes on 07-23-2022 HCG ( test) Ql (U) Negative [facility] Comment on above: Very dilute urine sp ecimens, as indicated by a low specificgravity, may not contain agency service representative levels of hCG. If is still suspected, a first morning urinespecimen should be collected 48 hours later and tested. ALP [Catalytic activity/Vol] 56 U/L 45-117 [facility] ALT [Catalytic activity/Vol] 15 U/L 13-56 [facility] CO2 [Moles/Vol] 21.0 mmol/L 21.0-32.0 [facility] Globulin (S) [Mass/Vol] 4.0 g/dL 2.2-4.2 [facility] Urea nitrogen/Creatinine [Mass ratio] 18.2 mg/mg 10-20 [facility] - Hematology and Cell countsOrdered By: Iris Fuentes on 07-23-2022 Erythrocyte distribution width (RBC) [Entitic vol] 44.4 fL 35.1-43.9 [facility] Erythrocyte distribution width (RBC) [Ratio] 13.5 % 11.6-14.6 [facility] Immature granulocytes/100 WBC (Bld) 0.400 % 0.0-0.9 [facility] Comment on above: IG% - Immature Granu locytes (promyelocytes, myelocytes and metamyelocytes) > 1% indicates that a LEFT SHIFT is Present. MCH (RBC) [Entitic mass] 28.4 pg 27.0-32.0 [facility] Nucleated RBC/100 WBC (Bld) [Ratio] 0 % 0-5 [facility] MCHC Auto (RBC) [Mass/Vol]Or dered By: Iris Fuentes on 07-23-2022 MCHC (RBC) [Mass/Vol] 31.6 g/dL 32-36 [facility] Mucus LM Ql (Urine sed)Order ed By: Iris Fuentes on 07-23-2022 Mucus Ql (Urine sed) 0 SEEN /hpf [facility] Nitrite Test strip Ql (U)Ord ered By: Iris Fuentes on 07-23-2022 Nitrite Ql (U) Negative Negative [facility] No Panel InformationOrdered By: Iris Fuentes on 07-23-2022 Estimated Creatinine Clearance Calc 95.89 ml/min [facility] Estimated GFR (MDRD) Amer 133 mL/min >60 [facility] Comment on above: GFR Calc Estimated GFR (MDRD) Non-Af Amer 110 mL/min >60 [facility] Comment on above: Non- GFR Calc Platelets bldOrdered By: Esau Fuentes on 07-23-2022 Platelets (Bld) [#/Vol] 380 10*3/uL 150-450 [facility] Protein Test strip Ql (U)Ord ered By: Iris Fuentes on 07-23-2022 Protein Ql (U) 15 mg/dl Negative [facility] Serum or plasma albumin mendez urement (mass/volume)Ordered By: Iris Fuentes on 07-23-2022 Albumin [Mass/Vol] 3.7 g/dL 3.2-5.0 [facility] Serum or plasma albumin/glob ulin mass ratioOrdered By: Iris Fuentes on 07-23-2022 Albumin/Globulin [Mass ratio] 0.9 {ratio} 0.9-2.4 [facility] Serum or plasma calcium mendez urement (mass/volume)Ordered By: Iris Fuentes on 07-23-2022 Calcium [Mass/Vol] 9.4 mg/dL 8.5-10.1 [facility] Serum or plasma creatinine m easurement (mass/volume)Ordered By: Iris Fuentes on 07-23-2022 Creatinine [Mass/Vol] 0.66 mg/dL 0.55-1.02 [facility] Comment on above: The validity of the calculated GFR & GFRAA in patients over 70 years has not been determined. Clinical correlation is essential. Serum or plasma urea nitroge n measurement (mass/volume)Ordered By: Iris Fuentes on 07-23-2022 Urea nitrogen [Mass/Vol] 12 mg/dL 7-18 [facility] Squamous epithelial cells de tection in urine sediment by light microscopyOrdered By: Iris Fuentes on 07-23-2022 Epithelial cells.squamous LM Ql (Urine sed) 5-10 SEEN /hpf 5-10 [facility] Thin prep Papanicolaou smear with manual screeningOrdered By: Iris Fuentes on 07-23-2022 Thin prep Papanicolaou smear with manual screening 19 U/L 15-37 [facility] Thin prep Papanicolaou smear with manual screening 9 5-15 [facility] Urine blood detectionOrdered By: Iris Fuentes on 07-23-2022 RBC Ql (U) Negative Negative [facility] RBC Ql (U) 0-5 SEEN /hpf 0-5 [facility] Urine clarityOrdered By: Esau Fuentes on 07-23-2022 Clarity (U) Cloudy Clear [facility] Urine color determinationOrd ered By: Iris Fuentes on 07-23-2022 Color (U) Yellow Yellow [facility] Urine glucose detectionOrder ed By: Iris Fuentes on 07-23-2022 Glucose Ql (U) Normal mg/dl Normal [facility] Urine leukocyte esterase det ection by dipstickOrdered By: Iris Fuentes on 07-23-2022 Leukocyte esterase Test strip Ql (U) 100 /ul Negative [facility] Urine pHOrdered By: Tami Fuentes on 07-23-2022 pH (U) 7.0 [pH] 5.0 - 8.0 [facility] Urine sediment bacteria coun t by microscopy (number/high power field)Ordered By: Iris Fuentes on 07-23-2022 Bacteria LM.HPF (Urine sed) [#/Area] 2 /[HPF] None Seen [facility] Urine sediment yeast count b y microscopy (number/high powered field)Ordered By: Iris Fuentes on 07-23-2022 Yeast LM.HPF (Urine sed) [#/Area] 5 /[HPF] None Seen [facility] Urine specific gravity measu rementOrdered By: Iris Fuentes on 07-23-2022 Specific gravity (U) [Rel density] 1.010 1.002-1.030 [facility] Urobilinogen Auto test strip Ql (U)Ordered By: Iris Fuentes on 07-23-2022 Urobilinogen Ql (U) Normal mg/dl Normal [facility] CBC W Auto Differential pane l (Bld)on 05-09-2022 Basophils (Bld) [#/Vol] 0.05 10*3/uL <0.11 k/uL [facility] Basophils/100 WBC (Bld) 0.5 % [facility] Differential cell count method Nom (Bld) Auto [facility] Eosinophils (Bld) [#/Vol] 0.26 10*3/uL <0.46 k/uL [facility] Eosinophils/100 WBC (Bld) 2.6 % [facility] Erythrocyte distribution width (RBC) [Ratio] 13.3 % 11.5 - 15.0 % [facility] Hematocrit (Bld) [Volume fraction] 40.6 % 36.0 - 46.0 % [facility] Hemoglobin (Bld) [Mass/Vol] 13.3 g/dL 11.5 - 15.5 g/dL [facility] Immature granulocytes (Bld) [#/Vol] 0.07 10*3/uL <0.10 k/uL [facility] Immature granulocytes/100 WBC (Bld) 0.7 % [facility] Lymphocytes (Bld) [#/Vol] 2.48 10*3/uL 1.00 - 4.00 k/uL [facility] Lymphocytes/100 WBC (Bld) 24.5 % [facility] MCH (RBC) [Entitic mass] 28.0 pg 26.0 - 34.0 pg [facility] MCHC (RBC) [Mass/Vol] 32.8 g/dL 30.5 - 36.0 g/dL [facility] MCV (RBC) [Entitic vol] 85.5 fL 80.0 - 100.0 fL [facility] Monocytes (Bld) [#/Vol] 0.72 10*3/uL <0.87 k/uL [facility] Monocytes/100 WBC (Bld) 7.1 % [facility] Neutrophils (Bld) [#/Vol] 6.53 10*3/uL 1.45 - 7.50 k/uL [facility] Neutrophils/100 WBC (Bld) 64.6 % [facility] Nucleated RBC (Bld) [#/Vol] <0.01 k/uL [facility] Nucleated RBC/100 WBC (Bld) [Ratio] 0.0 /100 WBC [facility] Platelet mean volume (Bld) [Entitic vol] 10.2 fL 9.0 - 12.7 fL [facility] Platelets (Bld) [#/Vol] 455 10*3/uL High 150 - 400 k/uL [facility] RBC (Bld) [#/Vol] 4.75 10*6/uL 3.90 - 5.2 0 m/uL [facility] WBC (Bld) [#/Vol] 10.11 10*3/uL 3.70 - 11.00 k/uL [facility] US LEG VEIN DVT NILA VAS LABo n 05-09-2022 [facility] HbA1c (Bld)on 04-17-2022 Average glucose Estimated from glycated hemoglobin (Bld) [Mass/Vol] 103 mg/dL [facility] HbA1c (Bld) [Mass fraction] 5.2 % 4.3 - 5.6 % [facility] SURGICAL PATHOLOGYon 022 Addendum H. pylori immunostai n performed on the stomach biopsy (part B) to evaluate the chronic gastritis is negative for organisms. Laboratory Developed Test (LDT) Disclaimer: Performance characteristics of immunohistochemical, immunofluorescent and chromogenic in-situ hybridization tests have been determined by the performing laboratory within [facility] s [facility] Pathology and Laboratory Medicine [place] ([facility], [facility], [facility] or [facility]) in a manner consistent with CLIA requirements. One or more of these tests have not been cleared or approved by the FDA. [facility] is regulated under CLIA as qualified to perform high-complexity testing. These tests are used for clinical purposes. They should not be regarded as investigational or for research. Positive and negative controls stain appropriately. [facility] Case Report Surgical Pathology R eport Case: [id number] Authorizing Provider: John Maharaj MD Collected: 11/28/2021 08:18 AM Ordering Location: Ambulatory Surgery Received: 11/28/2021 04:12 PM Pathologist: Justus Lyn MD Specimens: A) - DUODENUM BIOPSY B) - ANTRUM (STOMACH) BIOPSY, bx for H/H C) - TERMINAL ILEUM BIOPSY [facility] Diagnosis Comment H. pylori immunostai n is pending. [facility] FINAL DIAGNOSIS A. Duodenum, biopsy: - Small bowel mucosa with no diagnostic alteration. - No evidence of celiac sprue. B. Stomach, biopsy: - Antral and fundic mucosa with mild chronic inactive gastritis. - See comment. C. Terminal ileum, biopsy: - Focal active ileitis. - Negative for dysplasia or granulomas. [facility] Gross Description A. DUODENUM BIOPSY Received in formalin is one piece of barbosa, soft tissue measuring 0.9 x 0.3 x 0.2 cm. Totally submitted in one cassette. B. ANTRUM (STOMACH) BIOPSY Received in formalin is one piece of barbosa, soft tissue measuring 0.8 x 0.3 x 0.2 cm. Totally submitted in one cassette. C. TERMINAL ILEUM BIOPSY Received in formalin is one piece of barbosa, soft tissue measuring 0.4 x 0.3 x 0.2 cm. Totally submitted in one cassette. Gross examination performed at [facility], [address] [place] [address] JT 11/29/2021 1:35 AM [facility] Performing Lab Diagnostic interpret ation performed at [facility], [address], [place] [address] CLIA# [id number] Non Destructive Testing Scientist: Estrella Lindsay M.D. [facility] COLONOSCOPY DIAGNOSTICon [facility] EGD DIAGNOSTICon 11-28-2021 [facility] No Panel Informationon 09-09 [facility] Absolute lymphocyte counton 08-23-2021 Lymphocytes Auto (Unsp spec) [#/Vol] 2.80 10*3/uL 0.83-4.51 [facility] Work Phone: Basophil percentageon 2021 Basophil percentage 0-5 SEEN /hpf 0-5 [facility] Work Phone: Basophils/100 WBC (Bld) 0.5 % 0-1 [facility] Work Phone: Bilirubin [Mass/Vol] 0.20 mg/dL 0.20-1.00 [facility] Work Phone: Comment on above: For patients on eltr ombopag therapy, use of Dimension [place] TBIL is not recommended. Chloride [Moles/Vol] 106 mmol/L 98-107 [facility] Work Phone: Eosinophils/100 WBC (Bld) 6.6 % 0-5 [facility] Work Phone: Glucose [Mass/Vol] 99 mg/dL 74-106 [facility] Work Phone: Neutrophils (Bld) [#/Vol] 5.3 10*3/uL 2.0-7.7 [facility] Work Phone: Neutrophils/100 WBC (Bld) 55.6 % 47-70 [facility] Work Phone: Potassium [Moles/Vol] 4.0 mmol/L 3.5-5.1 [facility] Work Phone: Protein [Mass/Vol] 7.4 g/dL 6.4-8.2 [facility] Work Phone: Sodium [Moles/Vol] 138 mmol/L 136-145 [facility] Work Phone: WBC (Bld) [#/Vol] 9.6 10*3/uL 4.4-11.0 [facility] Work Phone: Beta hCG serum qualon 2021 Beta HCG ( test) Ql Negative [facility] Work Phone: Bilirubin Test strip Ql (U)o n 08-23-2021 Bilirubin Ql (U) Negative Negative [facility] Work Phone: [phone] Blood erythrocytes count (nu mber/volume)on 08-23-2021 RBC (Bld) [#/Vol] 4.82 10*6/uL 4.2-5.4 [facility] Work Phone: Blood hemoglobin measurement (mass/volume)on 08-23-2021 Hemoglobin (Bld) [Mass/Vol] 13.6 g/dL 12.0-15.0 [facility] Work Phone: Blood lymphocytes/100 leukoc yteson 08-23-2021 Lymphocytes/100 WBC (Bld) 29.2 % 19-41 [facility] Work Phone: Blood monocytes/100 leukocyt eson 08-23-2021 Monocytes/100 WBC (Bld) 7.6 % 0-10 [facility] Work Phone: Blood platelet mean volumeon 08-23-2021 Platelet mean volume (Bld) [Entitic vol] 9.7 fL 6.2-12.0 [facility] Work Phone: Determination of erythrocyte mean corpuscular volume (MCV)on 08-23-2021 MCV (RBC) [Entitic vol] 85.9 fL 81-99 [facility] Work Phone: Hematocrit Auto (Bld) [Volum e fraction]on 08-23-2021 Hematocrit (Bld) [Volume fraction] 41.4 % 37-47 [facility] Work Phone: Ketones Test strip Ql (U)on 08-23-2021 Ketones Ql (U) Negative Negative [facility] Work Phone: Laboratory - Chemistry and C hemistry - challengeon 08-23-2021 ALP [Catalytic activity/Vol] 66 U/L 45-117 [facility] Work Phone: [phone] ALT [Catalytic activity/Vol] 15 U/L 13-56 [facility] Work Phone: CO2 [Moles/Vol] 27.0 mmol/L 21.0-32.0 [facility] Work Phone: Globulin (S) [Mass/Vol] 4.0 g/dL 2.2-4.2 [facility] Work Phone: Urea nitrogen/Creatinine [Mass ratio] 18.9 mg/mg 10-20 [facility] Work Phone: Laboratory - Hematology and Cell countson 08-23-2021 Erythrocyte distribution width (RBC) [Entitic vol] 39.6 fL 35.1-43.9 [facility] Work Phone: Erythrocyte distribution width (RBC) [Ratio] 12.8 % 11.6-14.6 [facility] Work Phone: Immature granulocytes/100 WBC (Bld) 0.500 % 0.0-0.9 [facility] Work Phone: Comment on above: IG% - Immature Granu locytes (promyelocytes, myelocytes and metamyelocytes) > 1% indicates that a LEFT SHIFT is Present. MCH (RBC) [Entitic mass] 28.2 pg 27.0-32.0 [facility] Work Phone: Nucleated RBC/100 WBC (Bld) [Ratio] 0 % 0-5 [facility] Work Phone: MCHC Auto (RBC) [Mass/Vol]on 08-23-2021 MCHC (RBC) [Mass/Vol] 32.9 g/dL 32-36 [facility] Work Phone: Mucus LM Ql (Urine sed)on Mucus Ql (Urine sed) 0 SEEN /hpf [facility] Work Phone: Nitrite Test strip Ql (U)on 08-23-2021 Nitrite Ql (U) Negative Negative [facility] Work Phone: No Panel Informationon 08-23 Estimated Creatinine Clearance Calc 92.58 ml/min [facility] Work Phone: Estimated GFR (MDRD) Amer 127 mL/min >60 [facility] Work Phone: Comment on above: GFR Calc Estimated GFR (MDRD) Non-Af Amer 105 mL/min >60 [facility] Work Phone: Comment on above: Non- GFR Calc Platelets bldon 08-23-2021 Platelets (Bld) [#/Vol] 517 10*3/uL 150-450 [facility] Work Phone: Protein Test strip Ql (U)on 08-23-2021 Protein Ql (U) Negative Negative [facility] Work Phone: Serum or plasma albumin mendez urement (mass/volume)on 08-23-2021 Albumin [Mass/Vol] 3.4 g/dL 3.2-5.0 [facility] Work Phone: Serum or plasma albumin/glob ulin mass ratioon 08-23-2021 Albumin/Globulin [Mass ratio] 0.8 {ratio} 0.9-2.4 [facility] Work Phone: Serum or plasma calcium mendez urement (mass/volume)on 08-23-2021 Calcium [Mass/Vol] 9.2 mg/dL 8.5-10.1 [facility] Work Phone: Serum or plasma creatinine m easurement (mass/volume)on 08-23-2021 Creatinine [Mass/Vol] 0.69 mg/dL 0.55-1.02 [facility] Work Phone: Comment on above: The validity of the calculated GFR & GFRAA in patients over 70 years has not been determined. Clinical correlation is essential. Serum or plasma urea nitroge n measurement (mass/volume)on 08-23-2021 Urea nitrogen [Mass/Vol] 13 mg/dL 7-18 [facility] Work Phone: Squamous epithelial cells de tection in urine sediment by light microscopyon 08-23-2021 Epithelial cells.squamous LM Ql (Urine sed) 5-10 SEEN /hpf 5-10 [facility] Work Phone: Thin prep Papanicolaou smear with manual screeningon 08-23-2021 Thin prep Papanicolaou smear with manual screening 14 U/L 15-37 [facility] Work Phone: Thin prep Papanicolaou smear with manual screening 5 5-15 [facility] Work Phone: Urine blood detectionon 08-05 RBC Ql (U) Negative Negative [facility] Work Phone: RBC Ql (U) 0 SEEN /hpf 0-5 [facility] Work Phone: Urine clarityon 08-23-2021 Clarity (U) Clear Clear [facility] Work Phone: Urine color determinationon 08-23-2021 Color (U) Straw Yellow [facility] Work Phone: Urine glucose detectionon Glucose Ql (U) Normal mg/dl Normal [facility] Work Phone: Urine leukocyte esterase det ection by dipstickon 08-23-2021 Leukocyte esterase Test strip Ql (U) 25 /ul Negative [facility] Work Phone: Urine pHon 08-23-2021 pH (U) 7.0 [pH] 5.0 - 8.0 [facility] Work Phone: Urine sediment bacteria coun t by microscopy (number/high power field)on 08-23-2021 Bacteria LM.HPF (Urine sed) [#/Area] 3 /[HPF] None Seen [facility] Work Phone: Urine specific gravity measu rementon 08-23-2021 Specific gravity (U) [Rel density] 1.005 1.002-1.030 [facility] Work Phone: Urobilinogen Auto test strip Ql (U)on 08-23-2021 Urobilinogen Ql (U) Normal mg/dl Normal [facility] Work Phone: XR KNEE 4V AP/PA BOTH+LAT/ME R LTon 10-30-2018 XR KNEE 4V AP/PA BOTH+LAT/ODALIS LT * * *Final Report* * * DATE OF EXAM: Oct 30 2018 6:01PM [id number] - XR KNEE 4V AP/PA BOTH+LAT/ODALIS LT / PROCEDURE REASON: multiple diagnoses * * * * Physician Interpretation * * * * BILATERAL KNEES AP WEIGHTBEARING AND PA WEIGHTBEARING, AND LEFT KNEE LATERAL AND MERCHANT: CLINICAL INDICATION: Left medial femoral condyle lesion. History of bilateral knee pain. COMPARISON: Bilateral knee radiograph 10/22/2018. On the left, there is redemonstration of an approximately of 40 mm osseous lesion posterior medial femoral condyle. The lesion demonstrates trabeculated cystic appearance with sclerotic margin and sharp zone of transition. There is no associated periosteal thickening, bone destruction or pathologic fracture. The joint spaces are preserved. The articular surfaces are smooth. There are no marginal erosions. There is no joint effusion. On the right, the femorotibial joint spaces are preserved. IMPRESSION: 40 mm osseous lesion left medial femoral condyle. Although nonaggressive in appearance, further characterization with MR imaging is recommended. Cobol Engineer: RORY Transcribe Date/Time: Oct 31 2018 8:43A Dictated by : LADARIUS BERMUDEZ MD This examination was interpreted and the report reviewed and electronically signed by: LADARIUS BERMUDEZ MD on Oct 31 2018 8:50AM EST [facility] XR HAND 3V PA/LAT/OBL LTon 0 10-22-2018 XR HAND 3V PA/LAT/OBL LT * * *Final Report* * * DATE OF EXAM: Oct 22 2018 3:56PM [id number] - XR HAND 3V PA/LAT/OBL LT / PROCEDURE REASON: multiple diagnoses * * * * Physician Interpretation * * * * EXAMINATION: XR HAND 3V PA/LAT/OBL LT, XR HAND 3V PA/LAT/OBL RT HISTORY: Bilateral hand pain, joint pain of 1st MCP joint. No injury. no surgery. Pain in both hands Pain in both hands . TECHNIQUE: XR HAND 3V PA/LAT/OBL LT, XR HAND 3V PA/LAT/OBL RT Laterality: LEFT (accession [id number]), RIGHT (accession [id number]) Number of different views (projections): 3 M: XB_1 COMPARISON: None RESULT: Joint spaces are grossly preserved, bilaterally. There is no acute fracture or dislocation. Joint spaces are grossly preserved. There are no bony erosions. IMPRESSION: No acute fracture or dislocation is identified. Joint spaces are grossly preserved. There are no bony erosions. Cobol Engineer: [facility] Transcribe Date/Time: Oct 22 2018 4:12P Dictated by : FLYNN LUJAN MD This examination was interpreted and the report reviewed and electronically signed by: FLYNN LUJAN MD on Oct 22 2018 4:14PM EST [facility] XR HAND 3V PA/LAT/OBL RTon 0 10-22-2018 XR HAND 3V PA/LAT/OBL RT * * *Final Report* * * DATE OF EXAM: Oct 22 2018 3:56PM [id number] - XR HAND 3V PA/LAT/OBL RT / PROCEDURE REASON: multiple diagnoses * * * * Physician Interpretation * * * * EXAMINATION: XR HAND 3V PA/LAT/OBL LT, XR HAND 3V PA/LAT/OBL RT HISTORY: Bilateral hand pain, joint pain of 1st MCP joint. No injury. no surgery. Pain in both hands Pain in both hands . TECHNIQUE: XR HAND 3V PA/LAT/OBL LT, XR HAND 3V PA/LAT/OBL RT Laterality: LEFT (accession [id number]), RIGHT (accession [id number]) Number of different views (projections): 3 M: XB_1 COMPARISON: None RESULT: Joint spaces are grossly preserved, bilaterally. There is no acute fracture or dislocation. Joint spaces are grossly preserved. There are no bony erosions. IMPRESSION: No acute fracture or dislocation is identified. Joint spaces are grossly preserved. There are no bony erosions. Cobol Engineer: [facility] Transcribe Date/Time: Oct 22 2018 4:12P Dictated by : FLYNN LUJAN MD This examination was interpreted and the report reviewed and electronically signed by: FLYNN LUJAN MD on Oct 22 2018 4:14PM EST [facility] XR KNEE SURVEY 1V AP BILon 0 10-22-2018 XR KNEE SURVEY 1V AP NILA * * *Final Report* * * DATE OF EXAM: Oct 22 2018 3:56PM [id number] - XR KNEE SURVEY 1V AP NILA / PROCEDURE REASON: Pain in joint, multiple sites * * * * Physician Interpretation * * * * EXAM TITLE: XR KNEE SURVEY 1V AP NILA DATE: 10/22/2018 COMPARISON: None. CLINICAL INDICATION/HISTORY: Bilateral knee pain TECHNIQUE: AP weightbearing view of both knees FINDINGS: There is a 38 mm osseous lesion projecting along the proximal portion of the left medial femoral condyle. This demonstrates a lobulated lucent appearance with a sclerotic margin. There is a sharp zone of transition. No associated periostitis or bone destruction. No other osseous lesion is present. No fracture or dislocation. No bone destruction. Normal bilateral alignment. Soft tissues are grossly normal. IMPRESSION: 1. No acute bony abnormality. 2. Normal bilateral alignment. 3. 38 mm osseous lesion involving the left medial femoral condyle with nonaggressive features. However, dedicated left knee series recommended for further evaluation. Cobol Engineer: [facility] Transcribe Date/Time: Oct 23 2018 9:06A Dictated by : OLGA ALVAREZ MD This examination was interpreted and the report reviewed and electronically signed by: OLGA ALVAREZ MD on Oct 23 2018 9:08AM EST [facility] Vital Signs Date Time Vital Sign Value Performing Clinician Jody gardiner 07-15-2024 16:21-0400 Body mass index (BMI) [Ratio] 46.27 kg/m2 Ariana Bhagat MD Work Phone: [facility] 07-15-2024 16:21-0400 Body weight 114.76 kg Ariana Bhagat MD Work Phone: [facility] 07-15-2024 16:21-0400 Diastolic blood pressure 64 mm[Hg] Ariana Bhagat MD Work Phone: [facility] 07-15-2024 16:21-0400 Heart rate 70 /min Ariana Bhagat MD Work Phone: [facility] 07-15-2024 16:21-0400 SaO2% (BldA) [Mass fraction] 100 % Ariana Bhagat MD Work Phone: [facility] 07-15-2024 16:21-0400 Systolic blood pressure 110 mm[Hg] Ariana Bhagat MD Work Phone: [facility] 07-14-2024 09:03-0400 Body mass index (BMI) [Ratio] 46.64 kg/m2 Lena Llanos APRN.PIPELINE INTEGRITY ENGINEER Work Phone: [facility] 07-14-2024 09:03-0400 Body weight 115.67 kg Lena Llanos APRN.PIPELINE INTEGRITY ENGINEER Work Phone: [facility] 07-14-2024 09:03-0400 Diastolic blood pressure 72 mm[Hg] Lena Llanos RESIDENTIAL PROGRAM COORDINATOR.PIPELINE INTEGRITY ENGINEER Work Phone: [facility] 07-14-2024 09:03-0400 Heart rate 78 /min Lena Llanos RESIDENTIAL PROGRAM COORDINATOR.PIPELINE INTEGRITY ENGINEER Work Phone: [facility] 07-14-2024 09:03-0400 Respiratory rate 16 /min Lena Llanos RESIDENTIAL PROGRAM COORDINATOR.PIPELINE INTEGRITY ENGINEER Work Phone: [facility] 07-14-2024 09:03-0400 SaO2% (BldA) [Mass fraction] 98 % Lena Llanos RESIDENTIAL PROGRAM COORDINATOR.PIPELINE INTEGRITY ENGINEER Work Phone: [facility] 07-14-2024 09:03-0400 Systolic blood pressure 108 mm[Hg] Lena Llanos RESIDENTIAL PROGRAM COORDINATOR.[facility] Work Phone: [facility] 07-10-2024 14:05-0400 Body mass index (BMI) [Ratio] 46.46 kg/m2 Lena Llanos RESIDENTIAL PROGRAM COORDINATOR.PIPELINE INTEGRITY ENGINEER Work Phone: [facility] 07-10-2024 14:05-0400 Body temperature 98.1 [degF] Lena Llanos RESIDENTIAL PROGRAM COORDINATOR.PIPELINE INTEGRITY ENGINEER Work Phone: [facility] 07-10-2024 14:05-0400 Body weight 115.21 kg Lena Llanos RESIDENTIAL PROGRAM COORDINATOR.PIPELINE INTEGRITY ENGINEER Work Phone: [facility] 07-10-2024 14:05-0400 Diastolic blood pressure 69 mm[Hg] Lena Llanos RESIDENTIAL PROGRAM COORDINATOR.PIPELINE INTEGRITY ENGINEER Work Phone: [facility] 07-10-2024 14:05-0400 Heart rate 73 /min Lena Llanos RESIDENTIAL PROGRAM COORDINATOR.PIPELINE INTEGRITY ENGINEER Work Phone: [facility] 07-10-2024 14:05-0400 SaO2% (BldA) [Mass fraction] 97 % Elna Llanos RESIDENTIAL PROGRAM COORDINATOR.PIPELINE INTEGRITY ENGINEER Work Phone: [facility] 07-10-2024 14:05-0400 Systolic blood pressure 102 mm[Hg] Lena Llanos RESIDENTIAL PROGRAM COORDINATOR.PIPELINE INTEGRITY ENGINEER Work Phone: [facility] 06-19-2024 08:04-0400 Body height 157.5 cm Pacc 1 Work Phone: [facility] 06-19-2024 08:04-0400 Body mass index (BMI) [Ratio] 44.96 kg/m2 Pacc 1 Work Phone: [facility] 06-19-2024 08:04-0400 Body temperature 98.2 [degF] Pacc 1 Work Phone: [facility] 06-19-2024 08:04-0400 Body weight 111.49 kg Pacc 1 Work Phone: [facility] 06-19-2024 08:04-0400 Diastolic blood pressure 70 mm[Hg] Pacc 1 Work Phone: [facility] 06-19-2024 08:04-0400 Heart rate 77 /min Pacc 1 Work Phone: [facility] 06-19-2024 08:04-0400 Respiratory rate 16 /min Pacc 1 Work Phone: [facility] 06-19-2024 08:04-0400 SaO2% (BldA) [Mass fraction] 98 % Pacc 1 Work Phone: [facility] 06-19-2024 08:04-0400 Systolic blood pressure 118 mm[Hg] Pacc 1 Work Phone: [facility] 05-09-2024 11:18-0400 Body height 157.5 cm George Billow DO Work Phone: [facility] 05-09-2024 11:18-0400 Body mass index (BMI) [Ratio] 44.08 kg/m2 George Billow DO Work Phone: [facility] 05-09-2024 11:18-0400 Body weight 109.32 kg George Billow DO Work Phone: [facility] 05-09-2024 11:18-0400 Diastolic blood pressure 71 mm[Hg] George Childs DO Work Phone: [facility] 05-09-2024 11:18-0400 Heart rate 61 /min George Billow DO Work Phone: [facility] 05-09-2024 11:18-0400 Systolic blood pressure 105 mm[Hg] George Perezow DO Work Phone: [facility] 02-05-2024 08:22-0500 Body mass index (BMI) [Ratio] 43.15 kg/m2 Ladarius Flores RESIDENTIAL PROGRAM COORDINATOR.PIPELINE INTEGRITY ENGINEER Work Phone: [facility] 02-05-2024 08:22-0500 Body temperature 98.01 [degF] Ladarius Flores RESIDENTIAL PROGRAM COORDINATOR.PIPELINE INTEGRITY ENGINEER Work Phone: [facility] 02-05-2024 08:22-0500 Body weight 107 kg Ladarius Flores RESIDENTIAL PROGRAM COORDINATOR.PIPELINE INTEGRITY ENGINEER Work Phone: [facility] 02-05-2024 08:22-0500 Diastolic blood pressure 66 mm[Hg] aLdarius Flores RESIDENTIAL PROGRAM COORDINATOR.PIPELINE INTEGRITY ENGINEER Work Phone: [facility] 02-05-2024 08:22-0500 Heart rate 80 /min Ladarius Flores RESIDENTIAL PROGRAM COORDINATOR.PIPELINE INTEGRITY ENGINEER Work Phone: [facility] 02-05-2024 08:22-0500 Respiratory rate 24 /min Ladarius Flores RESIDENTIAL PROGRAM COORDINATOR.PIPELINE INTEGRITY ENGINEER Work Phone: [facility] 02-05-2024 08:22-0500 SaO2% (BldA) [Mass fraction] 96 % Ladarius Flores RESIDENTIAL PROGRAM COORDINATOR.PIPELINE INTEGRITY ENGINEER Work Phone: [facility] 02-05-2024 08:22-0500 Systolic blood pressure 91 mm[Hg] Ladarius Flores RESIDENTIAL PROGRAM COORDINATOR.PIPELINE INTEGRITY ENGINEER Work Phone: [facility] 01-19-2024 10:57-0500 Body mass index (BMI) [Ratio] 42.9 kg/m2 Ariana Bhagat MD Work Phone: [facility] 01-19-2024 10:57-0500 Body temperature 98.4 [degF] Ariana Bhagat MD Work Phone: [facility] 01-19-2024 10:57-0500 Body weight 106.4 kg Ariana Bhagat MD Work Phone: [facility] 01-19-2024 10:57-0500 Diastolic blood pressure 58 mm[Hg] Ariana Bhagat MD Work Phone: [facility] 01-19-2024 10:57-0500 Heart rate 69 /min Ariana Bhagat MD Work Phone: [facility] 01-19-2024 10:57-0500 SaO2% (BldA) [Mass fraction] 97 % Ariana Bhagat MD Work Phone: [facility] 01-19-2024 10:57-0500 Systolic blood pressure 92 mm[Hg] Ariana Bhagat MD Work Phone: [facility] 12-28-2023 13:30-0500 Diastolic blood pressure 70 mm[Hg] Misty Haagen RESIDENTIAL PROGRAM COORDINATOR.PIPELINE INTEGRITY ENGINEER Work Phone: [facility] 12-28-2023 13:30-0500 Heart rate 75 /min Misty Haagen RESIDENTIAL PROGRAM COORDINATOR.PIPELINE INTEGRITY ENGINEER Work Phone: [facility] 12-28-2023 13:30-0500 Respiratory rate 16 /min Misty Haagen RESIDENTIAL PROGRAM COORDINATOR.PIPELINE INTEGRITY ENGINEER Work Phone: [facility] 12-28-2023 13:30-0500 SaO2% (BldA) [Mass fraction] 97 % Misty Haagen RESIDENTIAL PROGRAM COORDINATOR.PIPELINE INTEGRITY ENGINEER Work Phone: [facility] 12-28-2023 13:30-0500 Systolic blood pressure 98 mm[Hg] Misty Haagen RESIDENTIAL PROGRAM COORDINATOR.PIPELINE INTEGRITY ENGINEER Work Phone: [facility] 12-22-2023 08:02-0500 Body mass index (BMI) [Ratio] 42.43 kg/m2 Ariana Bhagat MD Work Phone: [facility] 12-22-2023 08:02-0500 Body weight 105.23 kg Ariana Bhagat MD Work Phone: [facility] 12-22-2023 08:02-0500 Diastolic blood pressure 62 mm[Hg] Ariana Bhagat MD Work Phone: [facility] 12-22-2023 08:02-0500 Heart rate 84 /min Ariana Bhagat MD Work Phone: [facility] 12-22-2023 08:02-0500 Respiratory rate 18 /min Ariana Bhagat MD Work Phone: [facility] 12-22-2023 08:02-0500 SaO2% (BldA) [Mass fraction] 93 % Ariana Bhagat MD Work Phone: [facility] 12-22-2023 08:02-0500 Systolic blood pressure 116 mm[Hg] Ariana Bhagat MD Work Phone: [facility] 09-14-2023 11:47-0400 Diastolic blood pressure 60 mm[Hg] Ariana Bhagat MD Work Phone: [facility] 09-14-2023 11:47-0400 Systolic blood pressure 98 mm[Hg] Ariana Bhagat MD Work Phone: [facility] 09-14-2023 11:11-0400 Body height 157.5 cm Ariana Bhagat MD Work Phone: [facility] 09-14-2023 11:11-0400 Body mass index (BMI) [Ratio] 41.33 kg/m2 Ariana Bhagat MD Work Phone: [facility] 09-14-2023 11:11-0400 Body weight 102.5 kg Ariana Bhagat MD Work Phone: [facility] 09-14-2023 11:11-0400 Heart rate 70 /min Ariana Bhagat MD Work Phone: [facility] 09-14-2023 11:11-0400 SaO2% (BldA) [Mass fraction] 99 % Ariana Bhagat MD Work Phone: [facility] 07-28-2023 09:30-0400 Body mass index (BMI) [Ratio] 42.07 kg/m2 Georgie Heck MD Work Phone: [facility] 07-28-2023 09:30-0400 Body temperature 98.6 [degF] Georgie Heck MD Work Phone: [facility] 07-28-2023 09:30-0400 Body weight 104.33 kg Georgie Heck MD Work Phone: [facility] 07-28-2023 09:30-0400 Diastolic blood pressure 66 mm[Hg] Georgie Heck MD Work Phone: [facility] 07-28-2023 09:30-0400 Heart rate 85 /min Georgie Heck MD Work Phone: [facility] 07-28-2023 09:30-0400 Respiratory rate 20 /min Georgie Heck MD Work Phone: [facility] 07-28-2023 09:30-0400 SaO2% (BldA) [Mass fraction] 96 % Georgie Heck MD Work Phone: [facility] 07-28-2023 09:30-0400 Systolic blood pressure 124 mm[Hg] Georgie Heck MD Work Phone: [facility] 07-20-2023 08:21-0400 Body height 157.5 cm Ariana Bhagat MD Work Phone: [facility] 07-20-2023 08:21-0400 Body mass index (BMI) [Ratio] 42.87 kg/m2 Ariana Bhagat MD Work Phone: [facility] 07-20-2023 08:21-0400 Body weight 106.32 kg Ariana Bhagat MD Work Phone: [facility] 07-20-2023 08:21-0400 Diastolic blood pressure 64 mm[Hg] Ariana Bhagat MD Work Phone: [facility] 07-20-2023 08:21-0400 Heart rate 78 /min Ariana Bhagat MD Work Phone: [facility] 07-20-2023 08:21-0400 SaO2% (BldA) [Mass fraction] 97 % Ariana Bhagat MD Work Phone: [facility] 07-20-2023 08:21-0400 Systolic blood pressure 90 mm[Hg] Ariana Bhagat MD Work Phone: [facility] 07-09-2023 12:39-0400 Body mass index (BMI) [Ratio] 42.78 kg/m2 Erica Praisler-Wood RESIDENTIAL PROGRAM COORDINATOR.PIPELINE INTEGRITY ENGINEER Work Phone: [facility] 07-09-2023 12:39-0400 Body temperature 98.8 [degF] Erica Praisler-Wood RESIDENTIAL PROGRAM COORDINATOR.PIPELINE INTEGRITY ENGINEER Work Phone: [facility] 07-09-2023 12:39-0400 Body weight 106.8 kg Erica Praisler-Wood RESIDENTIAL PROGRAM COORDINATOR.PIPELINE INTEGRITY ENGINEER Work Phone: [facility] 07-09-2023 12:39-0400 Diastolic blood pressure 64 mm[Hg] Erica Praisler-Wood RESIDENTIAL PROGRAM COORDINATOR.PIPELINE INTEGRITY ENGINEER Work Phone: [facility] 07-09-2023 12:39-0400 Heart rate 79 /min Erica Praisler-Wood RESIDENTIAL PROGRAM COORDINATOR.PIPELINE INTEGRITY ENGINEER Work Phone: [facility] 07-09-2023 12:39-0400 Respiratory rate 18 /min Erica Praisler-Wood RESIDENTIAL PROGRAM COORDINATOR.PIPELINE INTEGRITY ENGINEER Work Phone: [facility] 07-09-2023 12:39-0400 SaO2% (BldA) [Mass fraction] 98 % Erica Praisler-Wood RESIDENTIAL PROGRAM COORDINATOR.PIPELINE INTEGRITY ENGINEER Work Phone: [facility] 07-09-2023 12:39-0400 Systolic blood pressure 112 mm[Hg] Erica Praisler-Wood RESIDENTIAL PROGRAM COORDINATOR.PIPELINE INTEGRITY ENGINEER Work Phone: [facility] 05-10-2023 15:22-0400 Body temperature 97.81 [degF] Carolee Hernandez RESIDENTIAL PROGRAM COORDINATOR.PIPELINE INTEGRITY ENGINEER Work Phone: [facility] 05-10-2023 15:22-0400 Body weight 103 kg Carolee Hernandez RESIDENTIAL PROGRAM COORDINATOR.PIPELINE INTEGRITY ENGINEER Work Phone: [facility] 05-10-2023 15:22-0400 Diastolic blood pressure 62 mm[Hg] Carolee Hernandez RESIDENTIAL PROGRAM COORDINATOR.PIPELINE INTEGRITY ENGINEER Work Phone: [facility] 05-10-2023 15:22-0400 Heart rate 73 /min Carolee Hernandez RESIDENTIAL PROGRAM COORDINATOR.PIPELINE INTEGRITY ENGINEER Work Phone: [facility] 05-10-2023 15:22-0400 Respiratory rate 21 /min Carolee Hernandez RESIDENTIAL PROGRAM COORDINATOR.PIPELINE INTEGRITY ENGINEER Work Phone: [facility] 05-10-2023 15:22-0400 SaO2% (BldA) [Mass fraction] 99 % Carolee Hernandez RESIDENTIAL PROGRAM COORDINATOR.PIPELINE INTEGRITY ENGINEER Work Phone: [facility] 05-10-2023 15:22-0400 Systolic blood pressure 100 mm[Hg] Carolee Hernandez RESIDENTIAL PROGRAM COORDINATOR.PIPELINE INTEGRITY ENGINEER Work Phone: [facility] 05-09-2023 07:19-0400 Body temperature 97.7 [degF] Sanket Ramesh RESIDENTIAL PROGRAM COORDINATOR.PIPELINE INTEGRITY ENGINEER Work Phone: [facility] 05-09-2023 07:19-0400 Body weight 102.1 kg Sanket Ramesh RESIDENTIAL PROGRAM COORDINATOR.PIPELINE INTEGRITY ENGINEER Work Phone: [facility] 05-09-2023 07:19-0400 Diastolic blood pressure 78 mm[Hg] Sanket Ramesh RESIDENTIAL PROGRAM COORDINATOR.PIPELINE INTEGRITY ENGINEER Work Phone: [facility] 05-09-2023 07:19-0400 Heart rate 77 /min Sanket Ramesh RESIDENTIAL PROGRAM COORDINATOR.PIPELINE INTEGRITY ENGINEER Work Phone: [facility] 05-09-2023 07:19-0400 Respiratory rate 18 /min Sanket Ramesh RESIDENTIAL PROGRAM COORDINATOR.PIPELINE INTEGRITY ENGINEER Work Phone: [facility] 05-09-2023 07:19-0400 SaO2% (BldA) [Mass fraction] 99 % Sanket Ramesh RESIDENTIAL PROGRAM COORDINATOR.PIPELINE INTEGRITY ENGINEER Work Phone: [facility] 05-09-2023 07:19-0400 Systolic blood pressure 110 mm[Hg] Sanket Chandler APRN.PIPELINE INTEGRITY ENGINEER Work Phone: [facility] 05-01-2023 08:47-0400 Body weight 102.06 kg Claudia Solis MD Work Phone: [facility] 05-01-2023 08:47-0400 Diastolic blood pressure 64 mm[Hg] Claudia Solis MD Work Phone: [facility] 05-01-2023 08:47-0400 Systolic blood pressure 110 mm[Hg] Claudia Solis MD Work Phone: [facility] 01-08-2023 16:58-0500 Body temperature 98.4 [degF] Precious Singh APRN.PIPELINE INTEGRITY ENGINEER Work Phone: [facility] 01-08-2023 16:58-0500 Body weight 98.7 kg Precious Singh APRN.PIPELINE INTEGRITY ENGINEER Work Phone: [facility] 01-08-2023 16:58-0500 Diastolic blood pressure 68 mm[Hg] Precious Singh APRN.PIPELINE INTEGRITY ENGINEER Work Phone: [facility] 01-08-2023 16:58-0500 Heart rate 85 /min Precious Singh APRN.PIPELINE INTEGRITY ENGINEER Work Phone: [facility] 01-08-2023 16:58-0500 Respiratory rate 16 /min Precious Singh APRN.PIPELINE INTEGRITY ENGINEER Work Phone: [facility] 01-08-2023 16:58-0500 SaO2% (BldA) [Mass fraction] 96 % Precious Singh APRN.PIPELINE INTEGRITY ENGINEER Work Phone: [facility] 01-08-2023 16:58-0500 Systolic blood pressure 104 mm[Hg] Precious Singh APRN.PIPELINE INTEGRITY ENGINEER Work Phone: [facility] 12-27-2022 18:00-0500 Body height 157.5 cm Amita Borrego APRN.PIPELINE INTEGRITY ENGINEER Work Phone: [facility] 12-27-2022 18:00-0500 Body weight 97.52 kg Amita Ga Elmo RESIDENTIAL PROGRAM COORDINATOR.PIPELINE INTEGRITY ENGINEER Work Phone: [facility] 12-24-2022 15:15-0500 Body temperature 98.49 [degF] Ladarius Flores RESIDENTIAL PROGRAM COORDINATOR.PIPELINE INTEGRITY ENGINEER Work Phone: [facility] 12-24-2022 15:15-0500 Body weight 97.07 kg Ladarius Jadielhowardvon RESIDENTIAL PROGRAM COORDINATOR.PIPELINE INTEGRITY ENGINEER Work Phone: [facility] 12-24-2022 15:15-0500 Diastolic blood pressure 78 mm[Hg] Ladarius Menezesvon RESIDENTIAL PROGRAM COORDINATOR.PIPELINE INTEGRITY ENGINEER Work Phone: [facility] 12-24-2022 15:15-0500 Heart rate 67 /min Ladarius Jadielhowardvon RESIDENTIAL PROGRAM COORDINATOR.PIPELINE INTEGRITY ENGINEER Work Phone: [facility] 12-24-2022 15:15-0500 Respiratory rate 16 /min Ladarius Jadielhowardvon RESIDENTIAL PROGRAM COORDINATOR.PIPELINE INTEGRITY ENGINEER Work Phone: [facility] 12-24-2022 15:15-0500 SaO2% (BldA) [Mass fraction] 98 % Ladarius Menezesvon RESIDENTIAL PROGRAM COORDINATOR.PIPELINE INTEGRITY ENGINEER Work Phone: [facility] 12-24-2022 15:15-0500 Systolic blood pressure 100 mm[Hg] Ladarius Menezesvon RESIDENTIAL PROGRAM COORDINATOR.PIPELINE INTEGRITY ENGINEER Work Phone: [facility] 12-12-2022 13:45-0500 Body weight 97.52 kg Carolee Daley RESIDENTIAL PROGRAM COORDINATOR.CNM Work Phone: [facility] 12-12-2022 13:45-0500 Diastolic blood pressure 64 mm[Hg] Carolee Daley RESIDENTIAL PROGRAM COORDINATOR.CNM Work Phone: [facility] 12-12-2022 13:45-0500 Systolic blood pressure 100 mm[Hg] Carolee Daley RESIDENTIAL PROGRAM COORDINATOR.CNM Work Phone: [facility] 12-11-2022 12:48-0500 Body temperature 97.59 [degF] Katy Craig PA-C Work Phone: [facility] 12-11-2022 12:48-0500 Body weight 97.89 kg Katy Bogner PA-C Work Phone: [facility] 12-11-2022 12:48-0500 Diastolic blood pressure 62 mm[Hg] Katy Bogner PA-C Work Phone: [facility] 12-11-2022 12:48-0500 Heart rate 75 /min Katy Bogner PA-C Work Phone: [facility] 12-11-2022 12:48-0500 Respiratory rate 21 /min Katy Bogner PA-C Work Phone: [facility] 12-11-2022 12:48-0500 SaO2% (BldA) [Mass fraction] 100 % Katy Bogner PA-C Work Phone: [facility] 12-11-2022 12:48-0500 Systolic blood pressure 96 mm[Hg] Katy Bogner PA-C Work Phone: [facility] 12-09-2022 21:23-0400 Heart rate 80 /min Dr. Ariana Bhagat Work Phone: [facility] 12-09-2022 21:23-0400 Respiratory rate 18 /min Dr. Ariana Bhagat Work Phone: [facility] 12-09-2022 21:01-0400 Body temperature 97.6 [degF] Dr. Ariana Bhagat Work Phone: [facility] 12-09-2022 21:01-0400 Diastolic blood pressure 70 mm[Hg] Dr. Ariana Bhagat Work Phone: [facility] 12-09-2022 21:01-0400 SaO2% (BldA) [Mass fraction] 100 % Dr. Ariana Bhagat Work Phone: [facility] 12-09-2022 21:01-0400 Systolic blood pressure 112 mm[Hg] Dr. Ariana Bhagat Work Phone: [facility] 12-09-2022 20:58-0400 Body height 157.[address] Ariana Bhagat Work Phone: [facility] 12-09-2022 20:58-0400 Body mass index (BMI) [Ratio] 39.4 kg/m2 Dr. Ariana Bhagat Work Phone: [facility] 12-09-2022 20:58-0400 Body weight 97.[address] Ariana Bhagat Work Phone: [facility] 09-07-2022 08:34-0400 Body height 157.5 cm Ariana Bhagat MD Work Phone: [facility] 09-07-2022 08:34-0400 Body weight 101.79 kg Ariana Bhagat MD Work Phone: [facility] 09-07-2022 08:34-0400 Diastolic blood pressure 58 mm[Hg] Ariana Bhagat MD Work Phone: [facility] 09-07-2022 08:34-0400 Heart rate 60 /min Ariana Bhagat MD Work Phone: [facility] 09-07-2022 08:34-0400 SaO2% (BldA) [Mass fraction] 96 % Ariana Bhagat MD Work Phone: [facility] 09-07-2022 08:34-0400 Systolic blood pressure 88 mm[Hg] Ariana Bhagat MD Work Phone: [facility] 08-21-2022 06:50-0400 Body mass index (BMI) [Ratio] 41.5 kg/m2 Dr. Ariana Bhagat Work Phone: [facility] 08-21-2022 06:50-0400 Body temperature 98.7 [degF] Dr. Ariana Bhagat Work Phone: [facility] 08-21-2022 06:50-0400 Body weight 102.[address] Ariana Bhagat Work Phone: [facility] 08-21-2022 06:50-0400 Diastolic blood pressure 82 mm[Hg] Dr. Ariana Bhagat Work Phone: [facility] 08-21-2022 06:50-0400 Heart rate 72 /min Dr. Ariana Bhagat Work Phone: [facility] 08-21-2022 06:50-0400 Respiratory rate 16 /min Dr. Ariana Bhagat Work Phone: [facility] 08-21-2022 06:50-0400 SaO2% (BldA) [Mass fraction] 96 % Dr. Ariana Bhagat Work Phone: [facility] 08-21-2022 06:50-0400 Systolic blood pressure 122 mm[Hg] Dr. Ariana Bhagat Work Phone: [facility] 07-23-2022 21:58-0400 Diastolic blood pressure 75 mm[Hg] [facility] 07-23-2022 21:58-0400 Heart rate 67 /min [facility] 07-23-2022 21:58-0400 Respiratory rate 16 /min [facility] 07-23-2022 21:58-0400 SaO2% (BldA) [Mass fraction] 97 % [facility] 07-23-2022 21:58-0400 Systolic blood pressure 128 mm[Hg] [facility] 07-23-2022 18:21-0400 Body height 157.48 cm [facility] 07-23-2022 18:21-0400 Body mass index (BMI) [Ratio] 43.6 kg/m2 [facility] 07-23-2022 18:21-0400 Body temperature 97.6 [degF] [facility] 07-23-2022 18:21-0400 Body weight 108.18 kg [facility] 06-08-2022 08:05-0400 Body weight 113.85 kg Ariana Bhagat MD Work Phone: [facility] 06-08-2022 08:05-0400 Diastolic blood pressure 64 mm[Hg] Ariana Bhagat MD Work Phone: [facility] 06-08-2022 08:05-0400 Heart rate 80 /min Ariana Bhagat MD Work Phone: [facility] 06-08-2022 08:05-0400 SaO2% (BldA) [Mass fraction] 98 % Ariana Bhagat MD Work Phone: [facility] 06-08-2022 08:05-0400 Systolic blood pressure 102 mm[Hg] Ariana Bhagat MD Work Phone: [facility] 05-09-2022 13:12-0400 Body height 157.5 cm Ariana Bhagat MD Work Phone: [facility] 05-09-2022 13:12-0400 Body weight 122.02 kg Ariana Bhagat MD Work Phone: [facility] 05-09-2022 13:12-0400 Diastolic blood pressure 72 mm[Hg] Ariana Bhagat MD Work Phone: [facility] 05-09-2022 13:12-0400 Heart rate 94 /min Ariana Bhagat MD Work Phone: [facility] 05-09-2022 13:12-0400 SaO2% (BldA) [Mass fraction] 98 % Ariana Bhagat MD Work Phone: [facility] 05-09-2022 13:12-0400 Systolic blood pressure 102 mm[Hg] Ariana Bhagat MD Work Phone: [facility] 01-19-2022 09:02-0500 Body height 157.5 cm Claudia Solis MD Work Phone: [facility] 01-19-2022 09:02-0500 Body weight 114.76 kg Claudia Solis MD Work Phone: [facility] 01-19-2022 09:02-0500 Diastolic blood pressure 64 mm[Hg] Claudia Solis MD Work Phone: [facility] 01-19-2022 09:02-0500 Systolic blood pressure 122 mm[Hg] Claudia Solis MD Work Phone: [facility] 11-28-2021 09:01-0400 Diastolic blood pressure 65 mm[Hg] John Maharaj MD Work Phone: [facility] 11-28-2021 09:01-0400 Heart rate 61 /min John Maharaj MD Work Phone: [facility] 11-28-2021 09:01-0400 Respiratory rate 16 /min John Maharaj MD Work Phone: [facility] 11-28-2021 09:01-0400 SaO2% (BldA) [Mass fraction] 97 % John Maharaj MD Work Phone: [facility] 11-28-2021 09:01-0400 Systolic blood pressure 128 mm[Hg] John Maharaj MD Work Phone: [facility] 11-28-2021 07:41-0400 Body temperature 97.81 [degF] John Maharaj MD Work Phone: [facility] 09-05-2021 07:52-0400 Body weight 112.04 kg Misty Haagen RESIDENTIAL PROGRAM COORDINATOR.PIPELINE INTEGRITY ENGINEER Work Phone: [facility] 09-05-2021 07:52-0400 Diastolic blood pressure 72 mm[Hg] Misty Haagen RESIDENTIAL PROGRAM COORDINATOR.PIPELINE INTEGRITY ENGINEER Work Phone: [facility] 09-05-2021 07:52-0400 Heart rate 74 /min Misty Haagen RESIDENTIAL PROGRAM COORDINATOR.PIPELINE INTEGRITY ENGINEER Work Phone: [facility] 09-05-2021 07:52-0400 Respiratory rate 20 /min Misty Haagen RESIDENTIAL PROGRAM COORDINATOR.PIPELINE INTEGRITY ENGINEER Work Phone: [facility] 09-05-2021 07:52-0400 SaO2% (BldA) [Mass fraction] 97 % Misty Haagen RESIDENTIAL PROGRAM COORDINATOR.PIPELINE INTEGRITY ENGINEER Work Phone: [facility] 09-05-2021 07:52-0400 Systolic blood pressure 106 mm[Hg] Misty Haagen RESIDENTIAL PROGRAM COORDINATOR.PIPELINE INTEGRITY ENGINEER Work Phone: [facility] 08-23-2021 21:06-0400 Respiratory rate 18 /min [facility] Work Phone: 08-23-2021 17:54-0400 Body temperature 97.3 [degF] [facility] Work Phone: 08-23-2021 17:54-0400 Diastolic blood pressure 93 mm[Hg] [facility] Work Phone: 08-23-2021 17:54-0400 Heart rate 76 /min [facility] Work Phone: 08-23-2021 17:54-0400 Systolic blood pressure 126 mm[Hg] [facility] Work Phone: 08-23-2021 17:50-0400 Body height 157.48 cm [facility] Work Phone: 08-23-2021 17:50-0400 Body mass index (BMI) [Ratio] 44.9 kg/m2 [facility] Work Phone: 08-23-2021 17:50-0400 Body weight 111.4 kg [facility] Work Phone: Encounters Encounter Date Encounter Type Care Provider Facility Start: 07-21-2024 End: 07-21-2024 Telephone encounter Ariana Bhagat MD Work Phone: [facility] Comment on above: Insurance Authorizat ion Start: 07-18-2024 End: 07-18-2024 Telephone encounter Ariana Bhagat MD Work Phone: [facility] [place] Comment on above: Medication Request Start: 07-16-2024 End: 07-18-2024 Telephone encounter Ariana Bhagat MD Work Phone: [facility] Comment on above: Insurance Authorizat ion Start: 07-16-2024 End: 07-16-2024 Telemedicine consultation with patient Sarina Stewart APRN.CNP Work Phone: Gynecology Start: 07-16-2024 End: 07-16-2024 ambulatory Sarina Stewart APRN.CNP Work Phone: Gynecology Comment on above: Postoperative state (Primary Dx); S/P SHANDA (total abdominal hysterectomy) 06/2024 (age 34) for endometriosis with Dr. George Childs ([facility]); S/P left oophorectomy 06/2024 (age 34) for endometriosis with Dr. George Childs ([facility]) Ozempic Start: 07-15-2024 End: 07-15-2024 Patient encounter procedure Ariana Bhagat MD Work Phone: [facility] [place] Comment on above: Class 3 severe obesi ty with body mass index (BMI) of 45.0 to 49.9 in adult, unspecified obesity type, unspecified whether serious comorbidity present (HCC) (Primary Dx); Breast pain; Endometriosis Start: 07-15-2024 End: 07-16-2024 ambulatory George Childs DO Work Phone: Obstetrics/Gynecology Comment on above: Hello Start: 07-15-2024 End: 07-15-2024 Telephone encounter Gerri Masterson APRN.PIPELINE INTEGRITY ENGINEER Work Phone: Gynecology Comment on above: Appointment (Video a ppointment ) Patient Question Start: 07-14-2024 End: 07-14-2024 Follow-up encounter George Childs DO Work Phone: Gynecology Start: 07-14-2024 End: 07-14-2024 Office outpatient visit 15 minutes Lena Llanos APRN.PIPELINE INTEGRITY ENGINEER Work Phone: [facility] Comment on above: Cellulitis of left l eg (Primary Dx); Status post hysterectomy Start: 07-14-2024 End: 07-14-2024 ambulatory ARIANA BHAGAT Facility:[facility] Start: 07-10-2024 End: 07-10-2024 Office outpatient visit 15 minutes Lena Llanos APRN.PIPELINE INTEGRITY ENGINEER Work Phone: [facility] Comment on above: Cellulitis of left l eg (Primary Dx) Start: 07-10-2024 End: 07-10-2024 Telephone encounter George Childs DO Work Phone: [facility] Comment on above: Patient Question; Campbell hernández Update Start: 07-10-2024 End: 07-10-2024 ambulatory [facility] Facility:[facility] Start: 07-08-2024 End: 07-08-2024 Telephone encounter George Childs Work Phone: [facility] Comment on above: Patient Update; Ela ent Question Start: 07-07-2024 End: 07-07-2024 ambulatory Silvina Shelby RN NURSE TOUR NARRATOR Comment on above: Patient Update Start: 07-07-2024 End: 07-07-2024 Telephone encounter Anitha Aguilera MD Work Phone: Gynecology Start: 07-03-2024 End: 07-03-2024 Telephone encounter Delaney Ariza MD Work Phone: Gynecology Comment on above: Surgery Problems Start: 07-02-2024 End: 07-02-2024 ambulatory Luna Alejandro RN NURSE TOUR NARRATOR Comment on above: Patient Update Start: 07-01-2024 End: 07-01-2024 ambulatory [facility] Facility:[facility] Start: 06-25-2024 End: 06-25-2024 [facility] Facility:[facility] Start: 06-19-2024 End: 06-19-2024 [facility] Facility:[facility] Start: 06-19-2024 Encounter for other preprocedural examination [facility] Start: 06-19-2024 End: 06-19-2024 Admission to establishment [facility] [place] [facility] Work Phone: Pre Anesthesia Start: 06-19-2024 End: 06-19-2024 Anesthesia consultation [facility] [place] [facility] Work Phone: Pre Anesthesia Comment on above: Pre-operative examin ation (Primary Dx); Excessive daytime sleepiness; Hyperlipidemia LDL goal <130; Mild intermittent asthma, uncomplicated (HCC); Acute upper respiratory infection; Thrombocytosis; Obesity, Class III, BMI 40-49.9 (morbid obesity) Start: 06-19-2024 End: 06-19-2024 Preprocedural examination done [facility] Work Phone: [facility] Work Phone: Start: 06-19-2024 End: 06-19-2024 ambulatory ARIANA Amato LEOLA Facility:[facility] Start: 06-19-2024 Encounter for other preprocedural examination ARIANA BHAGAT [facility] Start: 06-04-2024 End: 06-05-2024 ambulatory George Billow DO Work Phone: Obstetrics/Gynecology Comment on above: Hello Start: 06-02-2024 End: 06-02-2024 ambulatory ARIANA Amato LEOLA Facility:[facility] Start: 05-16-2024 End: 05-16-2024 Orders Only Gerri Masterson APRN.PIPELINE INTEGRITY ENGINEER Work Phone: Gynecology Comment on above: Preoperative examina tion (Primary Dx) Start: 05-16-2024 End: 05-16-2024 Preprocedural examination done Gerri Masterson APRN.PIPELINE INTEGRITY ENGINEER Work Phone: [facility] Work Phone: Start: 05-14-2024 End: 05-14-2024 Admission to same day surgery center George Billow DO Work Phone: Obstetrics/Gynecology Comment on above: Surgery Start: 05-14-2024 End: 05-14-2024 ambulatory George Billow DO Work Phone: Obstetrics/Gynecology Start: 05-12-2024 End: 05-15-2024 Telephone encounter George Billow DO Work Phone: [facility] Comment on above: Schedule Surgery; RE SCHEDULE SURGERY Start: 05-09-2024 End: 05-12-2024 ambulatory George Billow DO Work Phone: Obstetrics/Gynecology Comment on above: Hello Start: 05-09-2024 End: 05-09-2024 Patient encounter procedure George Billow DO Work Phone: Obstetrics/Gynecology Comment on above: Endometriosis of ova ry (Primary Dx); Pelvic pain; Preop examination Start: 05-09-2024 End: 05-09-2024 Preprocedural examination done George Billow DO Work Phone: [facility] Start: 05-07-2024 End: 05-07-2024 ambulatory Ariana Bhagat Facility:[facility] Start: 05-02-2024 End: 05-02-2024 ambulatory Ariana Bhagat Facility:[facility] Start: 03-13-2024 End: 03-14-2024 ambulatory Ariana Bhagat MD Work Phone: [facility] Comment on above: Hello Start: 03-05-2024 End: 03-06-2024 Emergency department patient visit Mejia Jones Facility:[facility] Start: 02-28-2024 End: 02-28-2024 Telephone encounter Kim Rubi MD Work Phone: [facility] Gynecology Oncology Comment on above: Appointment Cancelle d Start: 02-14-2024 End: 02-14-2024 Telephone encounter Ariana Bhagat MD Work Phone: [facility] Comment on above: Results Start: 02-13-2024 End: 02-13-2024 Telephone encounter Kim Rubi MD Work Phone: [facility] Gynecology Oncology Start: 02-08-2024 End: 02-08-2024 Subsequent hospital visit by physician M[facility] (I-Stat/1.5t) Work Phone: Radiology Comment on above: Other intra-abdomina l and pelvic swelling, mass and lump [R19.09] Start: 02-08-2024 End: 02-08-2024 ambulatory ARIANA BHAGAT Facility:[facility] Start: 02-07-2024 End: 02-07-2024 Telephone encounter Ariana Bhagat MD Work Phone: [facility] Comment on above: Results Start: 02-07-2024 End: 02-08-2024 ambulatory Ariana Bhagat MD Work Phone: [facility] Comment on above: Phone call Start: 02-07-2024 End: 02-07-2024 Manual pelvic examination Ariana Bhagat MD Work Phone: [facility] Comment on above: Other intra-abdomina l and pelvic swelling, mass and lump (Primary Dx) Start: 02-07-2024 End: 02-07-2024 Telemedicine consultation with patient Ariana Bhagat MD Work Phone: [facility] Start: 02-06-2024 End: 02-07-2024 ambulatory Ariana Bhagat MD Work Phone: [facility] Comment on above: Hello Ultrasound results Start: 02-05-2024 End: 02-05-2024 Subsequent hospital visit by physician [facility] Work Phone: Radiology Comment on above: Acute cough [R05.1] Start: 02-05-2024 End: 02-05-2024 ambulatory ARIANA BHAGAT Facility:[facility] Start: 02-05-2024 End: 02-05-2024 Office outpatient visit 25 minutes Ladarius Flores APRN.CNP Work Phone: [facility] Comment on above: Acute cough (Primary Dx); Mild intermittent asthma with acute exacerbation; Folliculitis Start: 02-01-2024 End: 02-01-2024 [facility] Start: 02-01-2024 End: 02-01-2024 Subsequent hospital visit by physician [facility] Work Phone: Radiology Comment on above: Adnexal cyst [N94.9] Start: 01-19-2024 End: 01-19-2024 Patient encounter procedure Ariana Bhagat MD Work Phone: [facility] Comment on above: Pharyngitis, unspeci fied etiology (Primary Dx); URI, acute; Microscopic hematuria; Adnexal cyst Start: 01-19-2024 End: 01-19-2024 ambulatory ARIANA BHAGAT Facility:[facility] Start: 01-18-2024 End: 01-25-2024 Telephone encounter Ariana Bhagat MD Work Phone: [facility] Comment on above: Results Start: 01-17-2024 End: 01-17-2024 ambulatory [facility]ANA [facility] Facility:[facility] Start: 01-17-2024 End: 01-17-2024 Subsequent hospital visit by physician Lisa [facility] (I-Stat) Work Phone: Cat Scan Comment on above: Flank pain [R10.9] Start: 12-31-2023 End: 12-31-2023 ambulatory [facility] Facility:[facility] Start: 12-31-2023 End: 12-31-2023 Subsequent hospital visit by physician Brian [facility] [place] Work Phone: Radiology Comment on above: Flank pain [R10.9] RUQ pain [R10.11] Start: 12-28-2023 End: 12-28-2023 Office outpatient visit 25 minutes Misty Willams APRN.CNP Work Phone: [facility] Comment on above: Right-sided low back pain with right-sided sciatica, unspecified chronicity (Primary Dx); Flank pain Start: 12-28-2023 End: 12-28-2023 ambulatory [facility] Facility:[facility] Start: 12-24-2023 End: 12-28-2023 Telephone encounter Ariana Bhagat MD Work Phone: [facility] Comment on above: Results Start: 12-23-2023 End: 12-24-2023 ambulatory Misty Willams APRN.PIPELINE INTEGRITY ENGINEER Work Phone: [facility] Comment on above: Test results Start: 12-22-2023 End: 12-22-2023 Patient encounter procedure Ariana Bhagat MD Work Phone: [facility] [place] Comment on above: RUQ pain (Primary Dx ); Hyperlipidemia LDL goal <130; Screening for depression; Mild intermittent asthma without complication; Obesity, Class III, BMI 40-49.9 (morbid obesity) (HCC); Flank pain Start: 12-22-2023 End: 12-22-2023 ambulatory [facility] Facility:[facility] Start: 11-23-2023 End: 11-23-2023 ambulatory Ariana Bhagat MD Work Phone: [facility] Comment on above: [employer]ep[employer] Start: 11-21-2023 End: 11-22-2023 Refill Misty Willams APRN.PIPELINE INTEGRITY ENGINEER Work Phone: Family [facility] Comment on above: Refill Request Start: 10-04-2023 End: 10-04-2023 ambulatory Evan HIGHTOWER Facility:[facility] Start: 10-01-2023 End: 10-01-2023 ambulatory Ariana Bhagat MD Work Phone: [facility] Comment on above: carnivor diet Start: 10-01-2023 End: 10-01-2023 E-mail encounter from caregiver Ariana Bhagat MD Work Phone: [facility] [place] Start: 09-28-2023 End: 10-01-2023 ambulatory Ariana Bhagat MD Work Phone: [facility] [place] Comment on above: Hello Start: 09-19-2023 ambulatory Ariana Bhagat MD Work Phone: [facility] Comment on above: [place] con respect o a XR KNEE GENERAL 4V AP BOTH/PA BOTH/LAT/MERC LT Start: 09-14-2023 End: 09-14-2023 Subsequent hospital visit by physician Brian [facility] Work Phone: Radiology Comment on above: Bone lesion [M89.9] Start: 09-14-2023 End: 09-14-2023 Patient encounter procedure Ariana Bhagat MD Work Phone: [facility] Comment on above: Bone lesion (Primary Dx); Dermatitis; Hyperlipidemia LDL goal <130; Obesity, Class III, BMI 40-49.9 (morbid obesity) ([facility]); Vitamin D deficiency; Mild intermittent asthma without complication; Thrombocytosis Start: 09-14-2023 End: 09-14-2023 ambulatory ARIANA BHAGAT Facility:[facility] Start: 09-10-2023 Telephone encounter Ariana Bhagat MD Work Phone: [facility] [place] Comment on above: Insurance Authorizat ion ([employer]ep[employer]) Start: 09-09-2023 Nurse Triage Supriya Sosa RN NURSE TOUR NARRATOR Comment on above: Refill Request [employer] Start: 09-04-2023 Telephone encounter [facility]at MD [facility] Comment on above: [employer] PA Start: 07-28-2023 End: 07-28-2023 ambulatory Lucia Guerra RN NURSE TOUR NARRATOR Comment on above: Medication Question Start: 07-28-2023 End: 07-28-2023 Patient encounter procedure Georgie Heck MD Work Phone[facility] Comment on above: Moderate persistent asthma with (acute) exacerbation (Primary Dx) Start: 07-20-2023 ambulatory Josy ramos RN NURSE TOUR NARRATOR Comment on above: Medication Problem Refill Request [employer] Start: 07-20-2023 End: 07-20-2023 Patient encounter procedure Ariana Bhagat MD [facility] Phone[facility] Comment on above: Hyperlipidemia LDL g oal <130 (Primary Dx); Obesity, Class III, BMI 40-49.9 (morbid obesity) (HCC); Vitamin D deficiency; Mild intermittent asthma without complication Start: 07-16-2023 Refill Ariana Bhagat MD Work Phone: [facility] Comment on above: Refill Request Insurance Authorizat ion Start: 07-09-2023 End: 07-09-2023 Patient encounter procedure Erica Leonard APRN.CNP Work Phone: [facility] Comment on above: Mild intermittent as thma with acute exacerbation (Primary Dx) Start: 07-08-2023 End: 07-08-2023 Telemedicine consultation with patient Jenny Malik APRN.PIPELINE INTEGRITY ENGINEER Work Phone: Telemedicine Comment on above: Mild intermittent as thma with acute exacerbation (Primary Dx); Viral URI Start: 07-05-2023 ambulatory Ariana Bhagat MD Work Phone: [facility] Comment on above: [employer]ep[employer] Start: 07-05-2023 Telephone encounter Ariana Bhagat MD Work Phone: [facility] Comment on above: prior authorization Start: 06-25-2023 End: 06-25-2023 Telemedicine consultation with patient Aniya No APRN.PIPELINE INTEGRITY ENGINEER Work Phone: Telemedicine Comment on above: Viral syndrome (Prim abiodun Dx) Start: 05-10-2023 End: 05-10-2023 Subsequent hospital visit by physician Brian [facility] Work Phone: Radiology Comment on above: Acute strain of neck muscle, initial encounter [S16.1XXA] Start: 05-10-2023 End: 05-10-2023 Patient encounter procedure Carolee Hernandez RESIDENTIAL PROGRAM COORDINATOR.PIPELINE INTEGRITY ENGINEER Work Phone: [facility] [facility] Comment on above: Neck pain (Primary D x) Start: 05-09-2023 End: 05-09-2023 Patient encounter procedure Sanket Chandler RESIDENTIAL PROGRAM COORDINATOR.PIPELINE INTEGRITY ENGINEER Work Phone: [facility] Comment on above: URI, acute (Primary Dx) Start: 05-07-2023 Refill Ariana Bhagat MD Work Phone: [facility] Comment on above: Refill Request Start: 05-01-2023 End: 05-01-2023 Patient encounter procedure Claudia Solis MD Work Phone: OB/Gynecology Comment on above: Ovarian cyst, right (Primary Dx); Right lower quadrant abdominal pain; Infertility counseling; Encounter for preconception consultation Start: 04-24-2023 ambulatory Ariana Bhagat MD Work Phone: [facility] Comment on above: Ozempic Start: 04-24-2023 Telephone encounter Ariana Bhagat MD Work Phone: Internal Medicine [facility] Comment on above: Insurance Authorizat ion Start: 04-09-2023 End: 04-09-2023 ambulatory Valentina Bagleynargis LOPEZ.PIPELINE INTEGRITY ENGINEER Work Phone: Telemedicine Comment on above: Burn (Primary Dx); Mouth sore Start: 04-09-2023 End: 04-09-2023 Telemedicine consultation with patient Valentina Bagleynargis LOPEZ.PIPELINE INTEGRITY ENGINEER Work Phone: [facility] Start: 01-10-2023 Telephone encounter Ariana Bhagat MD Work Phone: [facility] Comment on above: Orders Start: 01-08-2023 End: 01-08-2023 Patient encounter procedure Precious Singh APRN.PIPELINE INTEGRITY ENGINEER Work Phone: [facility] Comment on above: Hemorrhoids, unspeci fied hemorrhoid type (Primary Dx) Start: 01-08-2023 End: 01-08-2023 ambulatory Erna Amado RESIDENTIAL PROGRAM COORDINATOR.PIPELINE INTEGRITY ENGINEER Work Phone: Telemedicine Comment on above: Treatment not availa ble (Primary Dx) Start: 12-27-2022 End: 12-27-2022 ambulatory Amita Ga Elmo RESIDENTIAL PROGRAM COORDINATOR.PIPELINE INTEGRITY ENGINEER Work Phone: Telemedicine Comment on above: COVID (Primary Dx) Start: 12-27-2022 End: 12-27-2022 Telemedicine consultation with patient Amita Ga Elmo RESIDENTIAL PROGRAM COORDINATOR.PIPELINE INTEGRITY ENGINEER Work Phone: [facility] Start: 12-24-2022 End: 12-24-2022 Office outpatient visit 15 minutes Ladarius Flores RESIDENTIAL PROGRAM COORDINATOR.PIPELINE INTEGRITY ENGINEER Work Phone: [place] [facility] Comment on above: Sore throat (Primary Dx); Viral illness Start: 12-24-2022 End: 12-24-2022 ambulatory Otis Bray RESIDENTIAL PROGRAM COORDINATOR.PIPELINE INTEGRITY ENGINEER Work Phone: Telemedicine Comment on above: Treatment not availa ble (Primary Dx) Start: 12-24-2022 End: 12-24-2022 Telemedicine consultation with patient Otis Garciarosario LOPEZ.PIPELINE INTEGRITY ENGINEER Work Phone: [facility] Start: 12-17-2022 Telephone encounter Precious Singh APRN.PIPELINE INTEGRITY ENGINEER Work Phone: [facility] Comment on above: Results Start: 12-12-2022 End: 12-12-2022 Patient encounter procedure Carolee Daley APRN.CN Work Phone: OB/Gynecology Comment on above: Breast pain (Primary Dx) Start: 12-11-2022 End: 12-11-2022 Office outpatient visit 15 minutes Katy Craig PA-C Work Phone: [facility] Comment on above: Acute cough (Primary Dx); Hyperlipidemia LDL goal <130 Start: 12-11-2022 End: 12-11-2022 Subsequent hospital visit by physician X[facility] Work Phone: Radiology Comment on above: Acute cough [R05.1] Start: 12-09-2022 End: 12-09-2022 Emergency department patient visit Dr. Ariana Bhagat Work Phone: [facility] Work Phone: Start: 11-10-2022 ambulatory Ariana Bhagat MD Work Phone: Family [facility] [place] Comment on above: Ozempic Start: 09-08-2022 Telephone encounter Ariana Bhagat MD Work Phone: [facility] Comment on above: Results Start: 09-08-2022 End: 09-08-2022 ambulatory Georgie Heck MD Work Phone: [facility] [place] Comment on above: OPENED IN ERROR (Apple supriya Dx) Start: 09-08-2022 End: 09-08-2022 Telemedicine consultation with patient Georgie Heck MD Work Phone: [facility] Start: 09-07-2022 ambulatory Ariana Bhagat MD Work Phone: Family [facility] Comment on above: Covid test Start: 09-07-2022 [facility] (Vis it Summary) [facility] Provider External-[facility] Comment on above: COVID-19 Start: 09-07-2022 External Contact [facility] Provider EXTERNAL-NON [facility] Start: 09-07-2022 End: 09-07-2022 Patient encounter procedure Ariana Bhagat MD Work Phone: [facility] [place] Comment on above: Vitamin D deficiency (Primary Dx); Obesity, Class III, BMI 40-49.9 (morbid obesity) (HCC); Hyperlipidemia LDL goal <130; Mild intermittent asthma without complication; Congestion of upper airway; Need for hepatitis C screening test; Screening for HIV (human immunodeficiency virus) Start: 09-03-2022 Refill Claudia Solis MD Work Phone: OB/Gynecology Comment on above: Refill Request Start: 08-24-2022 End: 08-24-2022 Refill Misty Willams RESIDENTIAL PROGRAM COORDINATOR.PIPELINE INTEGRITY ENGINEER Work Phone: [facility] Comment on above: Refill Request Adverse effect of dr palafox, subsequent encounter (Primary Dx) Start: 08-23-2022 Refill Claudia Solis MD Work Phone: OB/Gynecology Comment on above: Refill Request Start: 08-21-2022 End: 08-21-[address] Ariana Bhagat Work Phone: [facility] Work Phone: Start: 08-20-2022 ambulatory Erna MarreroPIPELINE INTEGRITY ENGINEER Work Phone: Telemedicine Comment on above: Vaccine Reaction Start: 08-20-2022 E-mail encounter fro m caregiver Erna Amado APRN.PIPELINE INTEGRITY ENGINEER Work Phone: [facility] Start: 08-07-2022 End: 08-07-2022 ambulatory Ariana Bhagat MD Work Phone: [facility] Comment on above: Acute constipation ( Primary Dx); Obesity, Class III, BMI 40-49.9 (morbid obesity) ([facility]) Start: 08-07-2022 End: 08-07-2022 Telemedicine consultation with patient Ariana Bhagat MD Work Phone: [facility] Start: 08-03-2022 Refill Claudia Solis MD Work Phone: OB/Gynecology Comment on above: Refill Request Start: 07-26-2022 Refill Ariana Bhagat MD Work Phone: [facility] Comment on above: Refill Request Start: 07-23-2022 End: 07-23-2022 [facility] Start: 06-27-2022 End: 06-27-2022 ambulatory Iftikhar Lindsay APRN.PIPELINE INTEGRITY ENGINEER Work Phone: Telemedicine Comment on above: Acute constipation ( Primary Dx) Start: 06-27-2022 End: 06-27-2022 Telemedicine consultation with patient Iftikhar Lindsay RESIDENTIAL PROGRAM COORDINATOR.PIPELINE INTEGRITY ENGINEER Work Phone: [facility] Start: 06-08-2022 End: 06-08-2022 Patient encounter procedure Ariana Bhagat MD Work Phone: [facility] [place] Comment on above: Shellfish allergy (P rimary Dx); Class 3 severe obesity with body mass index (BMI) of 45.0 to 49.9 in adult, unspecified obesity type, unspecified whether serious comorbidity present ([facility]); Mild intermittent asthma without complication Start: 05-18-2022 Telephone encounter Ariana Bhagat MD Work Phone: [facility] [place] Comment on above: Results Start: 05-13-2022 Telephone encounter Ariana Bhagat MD Work Phone: [facility] [place] Comment on above: FYI-No Action Needed Start: 05-11-2022 Telephone encounter Ariana Bhagat MD Work Phone: [facility] [place] Comment on above: Patient Update Refill Request Start: 05-09-2022 Telephone encounter Ariana Bhagat MD Work Phone: [facility] Comment on above: Results Refill Request Start: 05-09-2022 End: 05-09-2022 Patient encounter procedure Ariana Bhagat MD Work Phone: [facility] Comment on above: Right ear pain (Prim abiodun Dx); Obesity, Class III, BMI 40-49.9 (morbid obesity) ([facility]); Edema, unspecified type Start: 05-08-2022 End: 05-08-2022 ambulatory Jenny King RESIDENTIAL PROGRAM COORDINATOR.PIPELINE INTEGRITY ENGINEER Work Phone: Telemedicine Comment on above: Treatment not availa ble (Primary Dx) Start: 05-08-2022 End: 05-08-2022 Telemedicine consultation with patient Jenny King RESIDENTIAL PROGRAM COORDINATOR.PIPELINE INTEGRITY ENGINEER Work Phone: [facility] Start: 04-26-2022 ambulatory Misty Willams RESIDENTIAL PROGRAM COORDINATOR.PIPELINE INTEGRITY ENGINEER Work Phone: [facility] [place] Comment on above: Hi Start: 04-19-2022 Chart abstracting [facility] Work Phone: Neurology Comment on above: HSAT Check In (Adult ) Start: 04-18-2022 Telephone encounter Misty walter APRN.PIPELINE INTEGRITY ENGINEER Work Phone: [facility] Comment on above: Appointment Start: 04-18-2022 End: 04-18-2022 ambulatory Misty Willams APRN.PIPELINE INTEGRITY ENGINEER Work Phone: [facility] [place] Comment on above: Fatigue, unspecified type (Primary Dx); Obesity, Class III, BMI 40-49.9 (morbid obesity) (HCC); Thrombocytosis Start: 04-18-2022 End: 04-18-2022 Telemedicine consultation with patient Misty Willams APRN.PIPELINE INTEGRITY ENGINEER Work Phone: [facility] Start: 04-17-2022 Telephone encounter Misty walter APRN.PIPELINE INTEGRITY ENGINEER Work Phone: [facility] [place] Comment on above: Appointment Results Start: 04-12-2022 ambulatory Misty Willams APRN.PIPELINE INTEGRITY ENGINEER Work Phone: [facility] [place] Comment on above: Hi Start: 03-23-2022 Orders Only Misty Willams APRN.PIPELINE INTEGRITY ENGINEER Work Phone: [facility] [place] Start: 03-23-2022 Telephone encounter Ariana Bhagat MD Work Phone: [facility] [place] Comment on above: Insurance Authorizat ion ([employer] ) Start: 03-20-2022 Refill Misty Willams APRN.PIPELINE INTEGRITY ENGINEER Work Phone: [facility] [place] Comment on above: Med Change Request Start: 03-20-2022 End: 03-20-2022 ambulatory Misty Willams APRN.PIPELINE INTEGRITY ENGINEER Work Phone: [facility] [place] Comment on above: Obesity, Class III, BMI 40-49.9 (morbid obesity) (HCC) (Primary Dx) Start: 03-20-2022 End: 03-20-2022 Telemedicine consultation with patient Misty Willams APRN.PIPELINE INTEGRITY ENGINEER Work Phone: [facility] Start: 01-25-2022 Refill Claudia Solis MD Work Phone: OB/Gynecology Comment on above: Refill Request Start: 01-19-2022 End: 01-19-2022 Patient encounter procedure Claudia Solis MD Work Phone: OB/Gynecology Comment on above: Encounter for gyneco logical examination (general) (routine) without abnormal findings (Primary Dx); Screening for cervical cancer; Encounter for screening for human papillomavirus (HPV); Screening for thyroid disorder; Unintended weight gain Start: 01-19-2022 End: 01-19-2022 Patient encounter status Claudia Solis MD Work Phone: OB/Gynecology Start: 12-22-2021 Telephone encounter Lucila Grier JESSICA.[facility] Work Phone: [facility] Comment on above: Patient Question Start: 12-21-2021 Refill Ariana Bhagat MD Work Phone: [facility] Comment on above: Refill Request Start: 12-20-2021 End: 12-20-2021 ambulatory Misty Willams RESIDENTIAL PROGRAM COORDINATOR.[facility] Work Phone: [facility] Comment on above: Obesity, Class III, BMI 40-49.9 (morbid obesity) (HCC) (Primary Dx) Start: 12-20-2021 End: 12-20-2021 Telemedicine consultation with patient Misty Willams RESIDENTIAL PROGRAM COORDINATOR.PIPELINE INTEGRITY ENGINEER Work Phone: [facility] Start: 12-06-2021 End: 12-06-2021 ambulatory Lucila Grier RESIDENTIAL PROGRAM COORDINATOR.[facility] Comment on above: Terminal ileitis wit h complication (HCC) (Primary Dx) Start: 12-06-2021 End: 12-06-2021 Telemedicine consultation with patient Lucila Grier RESIDENTIAL PROGRAM COORDINATOR.PIPELINE INTEGRITY ENGINEER Work Phone: [facility] Start: 11-28-2021 End: 11-28-2021 Subsequent hospital visit by physician John Maharaj MD Work Phone: Ambulatory Surgery Comment on above: Thrombocytosis [D75. 839] Start: 11-22-2021 Refill Misty Haagen RESIDENTIAL PROGRAM COORDINATOR.PIPELINE INTEGRITY ENGINEER Work Phone: Family [facility] [place] Comment on above: Med Change Request Start: 11-16-2021 Refill Lucila Grier APR N.PIPELINE INTEGRITY ENGINEER Work Phone: [facility] Comment on above: Refill Request Start: 11-03-2021 Telephone encounter Ariana Bhagat MD Work Phone: Family [facility] [place] Comment on above: Medication Problem Start: 10-20-2021 Chart abstracting Ariana Kohler MD Work Phone: [facility] Start: 10-19-2021 Refill Misty Haagen RESIDENTIAL PROGRAM COORDINATOR.PIPELINE INTEGRITY ENGINEER Work Phone: [facility] Comment on above: Med Change Request Start: 10-18-2021 Refill Misty Haagen RESIDENTIAL PROGRAM COORDINATOR.PIPELINE INTEGRITY ENGINEER Work Phone: [facility] Comment on above: Med Change Request Start: 10-16-2021 Refill Misty Haagen RESIDENTIAL PROGRAM COORDINATOR.PIPELINE INTEGRITY ENGINEER Work Phone: [facility] Comment on above: Med Change Request Start: 10-14-2021 End: 10-14-2021 ambulatory Lucila Grier RESIDENTIAL PROGRAM COORDINATOR.PIPELINE INTEGRITY ENGINEER Work Phone: [facility] Comment on above: Thrombocytosis (Prim abiodun Dx); Iron deficiency; Iron deficiency anemia, unspecified iron deficiency anemia type Start: 10-14-2021 End: 10-14-2021 Telemedicine consultation with patient Lucila Grier RESIDENTIAL PROGRAM COORDINATOR.PIPELINE INTEGRITY ENGINEER Work Phone: [facility] Start: 09-26-2021 ambulatory Cesar Matias Work Phone: Hematology/Oncology Comment on above: Hello Start: 09-21-2021 Telephone encounter Ariana Bhagat MD Work Phone: [facility] Comment on above: Orders; Results Start: 09-16-2021 Refill Misty Haagen RESIDENTIAL PROGRAM COORDINATOR.PIPELINE INTEGRITY ENGINEER Work Phone: Family Medicine [facility] Comment on above: Med Change Request Start: 09-09-2021 End: 09-09-2021 Subsequent hospital visit by physician [facility] [place] [facility] Work Phone: Radiology Comment on above: Generalized abdomina l pain [R10.84] Ovarian cyst, bilate ral [N83.201, N83.202] Start: 09-05-2021 Telephone encounter Ariana Bhaagt MD Work Phone: Family Medicine [facility] Comment on above: Results Start: 09-05-2021 End: 09-05-2021 Office outpatient visit 25 minutes Misty Hajose angel JACKPIPELINE INTEGRITY ENGINEER Work Phone: Family Medicine [facility] Comment on above: Hyperlipidemia LDL g oal <130 (Primary Dx); Vitamin D deficiency; Ovarian cyst, bilateral; Generalized abdominal pain; Mild intermittent asthma without complication; Obesity, Class III, BMI 40-49.9 (morbid obesity) ([facility]) Start: 08-23-2021 End: 08-23-2021 Emergency department patient visit [facility] Start: 08-20-2021 Telephone encounter Ariana Bhagat MD Work Phone: Family [facility] Comment on above: Results Start: 08-19-2021 ambulatory Ariana Bhagat MD Work Phone: Family [facility] Comment on above: [place] con respect o a CBC + DIFF Start: 07-27-2021 Telephone encounter Ariana Bhagat MD Work Phone: Family [facility] Comment on above: Insurance Authorizat ion; Medication Problem Start: 07-07-2021 Refill Ariana Bhagat MD Work Phone: Family [facility] Comment on above: Refill Request Start: 06-18-2021 Refill [facility] Provider [facility] Nathan Carvajal Comment on above: Refill Request Start: 05-30-2021 Telephone encounter Ariana Bhagat MD Work Phone: Family [facility] Comment on above: Lab Orders Start: 05-10-2021 Telephone encounter Ariana Bhagat MD Work Phone: Family [facility] Comment on above: Letter Start: 05-03-2021 Telephone encounter Ariana Bhagat MD Work Phone: Family Medicine [facility] Comment on above: RADIOLOGY DISC Start: 08-20-2020 Telephone encounter Ariana Bhagat MD Work Phone: Family Medicine [facility] Comment on above: Insurance Authorizat ion (Epi pen) Procedures Date Procedure Procedure Detail Performing Clinician Start: 07-16-2024 History of total hysterectomy S/P SHANDA (total abdominal hysterectomy) 06/2024 (age 33) for endometriosis with Dr. George Childs ([facility]) Sarina Stewart RESIDENTIAL PROGRAM COORDINATOR.PIPELINE INTEGRITY ENGINEER Work Phone: Start: 06-19-2024 Antibody screen ARIANA BHAGAT Comment on above: Order Comment: Specimen Type: BLOOD SPEC IMEN Ordering Facility: [facility] Address: [address] [place] [address] Performed By: #### 2 [id number], [id number] #### [facility] CLIA [id number] [address] [place] [address] STATES OF ANI Start: 02-05-2024 Radiologic exam chest 2 views Ladarius Flores RESIDENTIAL PROGRAM COORDINATOR.PIPELINE INTEGRITY ENGINEER Work Phone: Start: 01-19-2024 STREP A MOLECULAR (POC) Ariana Elder Work Phone: Start: 01-17-2024 Ct abdomen & pelvis w/o contrst 1/> body re Ariana Bhagat MD Work Phone: Start: 12-31-2023 Us abdominal real time w/image limited Ariana Bhagat MD Work Phone: Start: 12-22-2023 Adult depression screening assessment Ariana Bhagat MD Work Phone: Start: 09-14-2023 Radiologic exam knee complete 4/more views Ariana Bhagat MD Work Phone: Start: 05-10-2023 Radex spine cervical 4 or 5 views Adeline Hernandez RESIDENTIAL PROGRAM COORDINATOR.PIPELINE INTEGRITY ENGINEER Work Phone: Start: 05-09-2023 INFLUENZA A&B MOLECULAR (POC) Sanket ha APRN.PIPELINE INTEGRITY ENGINEER Work Phone: Start: 12-24-2022 STREP A MOLECULAR (POC) Precious Singh RESIDENTIAL PROGRAM COORDINATOR.PIPELINE INTEGRITY ENGINEER Work Phone: Start: 12-11-2022 COVID & INFLUENZA A/B & RSV NAAT, ROUTINE Katy Craig PA-C Work Phone: Start: 12-11-2022 Iadna respiratry probe & rev trnscr 3-5 targets Katykrystal HIGHTOWER-C Work Phone: Start: 12-11-2022 Sars-cov-2 detection by dna/rna Izaiah Lockwood-C Work Phone: Start: 12-11-2022 Radiologic exam chest 2 views Katy HIGHTOWER-C Work Phone: Start: 07-23-2022 CT of abdomen and pelvis without contrast Start: 11-28-2021 Level iv surg pathology gross&microscopic exam John Maharaj MD Work Phone: Start: 11-28-2021 Esophagogastroduodenoscopy transoral diagnostic Lucila Grier RESIDENTIAL PROGRAM COORDINATOR.PIPELINE INTEGRITY ENGINEER Work Phone: Start: 11-28-2021 Colonoscopy flx dx w/collj spec when pfrmd Lucila Grier APRN.PIPELINE INTEGRITY ENGINEER Work Phone: Start: 09-09-2021 Us pelvic nonobstetric image dcmtn limited/f/u Misty Willams APRN.PIPELINE INTEGRITY ENGINEER Work Phone: Start: 09-09-2021 Us abdominal real time w/image limited Misty Willams APRN.PIPELINE INTEGRITY ENGINEER Work Phone: Start: 09-04-2021 Adult depression screening assessment Misty Willams APRN.PIPELINE INTEGRITY ENGINEER Work Phone: Start: 08-23-2021 Computed tomography of abdomen and pelvis with intravenous contrast Start: 01-13-2020 Adult depression screening assessment Ariana Bhagat MD Work Phone: H/O: hysterectomy Status post hysterectomy Lena Llanos RESIDENTIAL PROGRAM COORDINATOR.PIPELINE INTEGRITY ENGINEER Work Phone: Plan of Treatment Date Care Activity Detail Author Start: 08-07-2028 Urine microalbumin profile [facility] Start: 01-19-2027 HPV TESTING HPV TESTING [facility] Start: 01-19-2027 PAP TESTING PAP TESTING [facility] Start: 01-19-2027 Screening for malignant neoplasm of cervix [facility] Start: 07-15-2025 Annual PCP Team Chronic Disease Visit Annual PCP Team Chronic Disease Visit [facility] Start: 07-14-2025 Annual PCP Team Chronic Disease Visit Annual PCP Team Chronic Disease Visit [facility] Start: 07-10-2025 Annual PCP Team Chronic Disease Visit Annual PCP Team Chronic Disease Visit [facility] Start: 02-06-2025 Annual PCP Team Chronic Disease Visit Annual PCP Team Chronic Disease Visit [facility] Start: 01-18-2025 Annual PCP Team Chronic Disease Visit Annual PCP Team Chronic Disease Visit [facility] Start: 12-27-2024 Annual PCP Team Chronic Disease Visit Annual PCP Team Chronic Disease Visit [facility] Start: 12-21-2024 Annual PCP Team Chronic Disease Visit Annual PCP Team Chronic Disease Visit [facility] Start: 12-21-2024 Anxiety Screening Anxiety Screening [facility] Start: 12-21-2024 Depression Screening Depression Screening [facility] Start: 09-13-2024 Annual PCP Team Chronic Disease Visit Annual PCP Team Chronic Disease Visit [facility] Start: 09-13-2024 Anxiety Screening Anxiety Screening [facility] Comment on above: Postponed from 07/07/2007 (Declined at t his time) Start: 09-13-2024 Spirometry Spirometry [facility] Comment on above: Postponed from 07/07/2007 (Declined at t his time) Start: 08-22-2024 End: 08-22-2024 Patient encounter procedure 08/22/2024 11:30 AM EDT Office Visit Obstetrics/Gynecology [address] [place] [address] George Childs DO [address] [place] [address] POST OP 6 WEEKS Obstetrics/Gynecol ogy Comment on above: POST OP 6 WEEKS Start: 08-19-2024 End: 08-19-2024 Patient encounter procedure Mammogram Comment on above: Breast pain [N64.4] Start: 08-14-2024 End: 08-14-2024 Patient encounter procedure 08/14/2024 11:30 AM EDT Office Visit Obstetrics/Gynecology [address] [place] [address] George Childs DO [address] [place] [address] POST OP 6 WEEKS Obstetrics/Gynecol ogy Comment on above: POST OP 6 WEEKS Start: 08-13-2024 End: 08-13-2024 Patient encounter procedure 08/13/2024 9:20 AM EDT Office Visit Family [facility] [address] [place] [address] Misty Willams, RESIDENTIAL PROGRAM COORDINATOR.PIPELINE INTEGRITY ENGINEER [address] [place] [address] 4 wk follow up ozempic [facility] Comment on above: 4 wk follow up [facility] Start: 07-27-2024 Annual PCP Team Chronic Disease Visit Annual PCP Team Chronic Disease Visit [facility] Start: 07-19-2024 Annual PCP Team Chronic Disease Visit Annual PCP Team Chronic Disease Visit [facility] Start: 07-16-2024 End: 07-16-2024 ambulatory 07/16/2024 10:00 AM EDT [facility] Gynecology [address] [place] [address] Sarina Stewart, RESIDENTIAL PROGRAM COORDINATOR.PIPELINE INTEGRITY ENGINEER [address] [place] [address] POST OP 2 WEEKS Gynecology Comment on above: POST OP 2 WEEKS Start: 07-16-2024 End: 07-16-2024 Patient encounter procedure 07/16/2024 9:50 AM EDT Office Visit OB/Gynecology [address] [place] [address] Claudia Langston MD [address] [place] [address] No OB/Gynecology Comment on above: No Start: 07-15-2024 End: 07-15-2024 ambulatory 07/15/2024 9:30 AM EDT [facility] Gynecology [address] [place] [address] Gerri Masterson, RESIDENTIAL PROGRAM COORDINATOR.PIPELINE INTEGRITY ENGINEER [address] [place] [address] POST OP 2 WEEKS Gynecology Comment on above: POST OP 2 WEEKS Start: 07-14-2024 End: 07-14-2024 Patient encounter procedure 07/14/2024 9:00 AM EDT Office Visit [facility] [place] [address] [place] [address] Lena Llanos, JESSICA.PIPELINE INTEGRITY ENGINEER [address] [place] [address] cellulitis [facility] [place] Comment on above: cellulitis Start: 07-01-2024 End: 07-01-2024 Admission to same day surgery center 07/01/2024 7:30 AM EDT - 07/01/2024 11:15 AM EDT Surgery Admitting [address] [place] [address] George Childs DO [address] [facility] [address] [place] [address] LAPAROSCOPIC HYSTERECTOMY TOTAL FOR UTERUS 250 G OR LESS W/REMOVAL TUBE(S) AND/OR OVARY(S) Admitting Comment on above: LAPAROSCOPIC HYSTERECTOMY TOTAL FOR UTER US 250 G OR LESS W/REMOVAL TUBE(S) AND/OR OVARY(S) Start: 07-01-2024 End: 07-01-2024 Cystourethroscopy CYSTOSCOPY Endometriosis of ovary 07/01/2024 7:30 AM EDT [facility] Start: 07-01-2024 End: 07-01-2024 Laps total hysterect 250 gm/< w/rmvl tube/ovary LAPAROSCOPIC HYSTERECTOMY TOTAL FOR UTERUS 250 G OR LESS W/REMOVAL TUBE(S) AND/OR OVARY(S) Endometriosis of ovary 07/01/2024 7:30 AM EDT [facility] Start: 07-01-2024 Subsequent hospital visit by physician 07/01/2024 7:30 AM EDT Hospital Encounter Admitting [address] [place] [address] George Childs DO [address] [place] [address] Endometriosis of ovary [N80.109] Admitting Comment on above: Endometriosis of ovary [N80.109] Start: 06-25-2024 End: 06-25-2024 ambulatory 06/25/2024 1:00 PM EDT [facility] Gynecology [address] [address] Community Engagement Specialist, Nurse [address] [place] [address] PRE OP TEACHING TELEVISIT Gynecology Comment on above: PRE OP TEACHING TELEVISIT Start: 06-19-2024 End: 06-19-2024 Anesthesia consultation 06/19/2024 8:00 AM EDT PAT Pre Anesthesia [address] [place] [address] 1, Pacc [facility] [address] [place] [address] PRE OP Pre Anesthesia Comment on above: PRE OP Start: 06-02-2024 End: 06-02-2024 Patient encounter procedure 06/02/2024 12:00 PM EDT Office Visit Financial Clearance Phone Screening [facility]95 SURGERY Financial Clearance Phone Screening Comment on above: SURGERY Start: 06-01-2024 End: 08-31-2024 CBC panel - Blood by Automated count COMPLETE BLOOD COUNT Lab Routine Preoperative examination Expected: 06/01/2024 (Approximate), Expires: 08/31/2024 [facility] Comment on above: Expected: 06/01/2024 (Approximate), Expi res: 08/31/2024 Start: 06-01-2024 End: 08-31-2024 TYPE AND SCREEN,30 DAY TYPE AND SCREEN,30 DAY Blood Bank Routine Preoperative examination Expected: 06/01/2024 (Approximate), Expires: 08/31/2024 [facility] Work Phone: Comment on above: Expected: 06/01/2024 (Approximate), Expi res: 08/31/2024 Start: 05-30-2024 End: 08-29-2024 CONFIRM BLOOD TYPE CONFIRM BLOOD TYPE Blood Bank Routine Preoperative examination Expected: 05/30/2024 (Approximate), Expires: 08/29/2024 [facility] Comment on above: Expected: 05/30/2024 (Approximate), Expi res: 08/29/2024 Start: 05-28-2024 End: 05-28-2024 Admission to same day surgery center 05/28/2024 10:50 AM EDT - 05/28/2024 3:00 PM EDT Surgery [facility] Operating Room [id number] [place] [address] George Childs, [address] [place] [address] LAPAROSCOPIC HYSTERECTOMY TOTAL FOR UTERUS 250 G OR LESS W/REMOVAL TUBE(S) AND/OR OVARY(S) [facility] Comment on above: LAPAROSCOPIC HYSTERECTOMY TOTAL FOR UTER US 250 G OR LESS W/REMOVAL TUBE(S) AND/OR OVARY(S) Start: 05-28-2024 End: 05-28-2024 Cystourethroscopy CYSTOSCOPY Endometriosis of ovary 05/28/2024 10:50 AM EDT [facility] Start: 05-28-2024 End: 05-28-2024 Laps total hysterect 250 gm/< w/rmvl tube/ovary LAPAROSCOPIC HYSTERECTOMY TOTAL FOR UTERUS 250 G OR LESS W/REMOVAL TUBE(S) AND/OR OVARY(S) Endometriosis of ovary 05/28/2024 10:50 AM EDT [facility] Start: 05-28-2024 Subsequent hospital visit by physician 05/28/2024 10:50 AM EDT Hospital Encounter [facility] Operating Room [id number] [place] [address] George Childs, DO [address] [place] [address] Endometriosis of ovary [N80.109] [facility] Comment on above: Endometriosis of ovary [N80.109] Start: 05-09-2024 End: 05-09-2024 Patient encounter procedure 05/09/2024 11:00 AM EDT Office Visit Obstetrics/Gynecology [address] [place] [address] Jerrod DO George [address] [place] [address] MIGS Obstetrics/Gynecol ogy Comment on above: MIGS Start: 02-29-2024 End: 02-29-2024 Manual pelvic examination [facility] Oncology Comment on above: Pelvic mass [R19.00] Start: 02-26-2024 End: 02-26-2024 Patient encounter procedure 02/26/2024 3:00 PM EST Office Visit OB/Gynecology [address] [place] [address] Claudia Langston MD [address] [place] [address] Normal visit OB/Gynecology Comment on above: Normal visit Start: 02-22-2024 End: 02-22-2024 Patient encounter procedure 02/22/2024 9:30 AM EST Office Visit OB/Gynecology [address] [place] [address] Carolee Daley APRN.CN [address] [place] [address] Lower left pain OB/Gynecology Comment on above: Lower left pain Start: 02-07-2024 End: 05-08-2024 Cancer Ag 125 [Units/volume] in Serum or Plasma CA 125 Lab Routine Pelvic mass Expected: 02/07/2024, Expires: 05/08/2024 [facility] Work Phone: Comment on above: Expected: 02/07/2024, Expires: Start: 02-07-2024 End: 05-08-2024 Cancer Ag 19-9 [Units/volume] in Serum or Plasma CA 19-9 Lab Routine Pelvic mass Expected: 02/07/2024, Expires: 05/08/2024 [facility] Comment on above: Expected: 02/07/2024, Expires: Start: 02-07-2024 End: 05-08-2024 Carcinoembryonic Ag [Mass/volume] in Serum or Plasma CARCINOEMBRYONIC ANTIGEN Lab Routine Pelvic mass Expected: 02/07/2024, Expires: 05/08/2024 [facility] Comment on above: Expected: 02/07/2024, Expires: Start: 02-01-2024 End: 02-01-2024 Patient encounter procedure 02/01/2024 9:15 AM EST Appointment Radiology [address] [place] [address] Adnexal cyst [N94.9] Radiology Comment on above: Adnexal cyst [N94.9] Start: 01-31-2024 Annual PCP Team Chronic Disease Visit Annual PCP Team Chronic Disease Visit [facility] Start: 01-21-2024 End: 01-21-2024 Follow-up encounter 01/21/2024 1:30 PM EST Visit (SP) Office Hematology/Oncology [address] [place] [address] Cesar Lopez DO [address] [place] [address] OV/Follow-up thrombocytosis ref.back by * Hematology/Oncolog y Comment on above: OV/Follow-up thrombocytosis ref.back by * Start: 01-17-2024 End: 01-17-2024 Patient encounter procedure 01/17/2024 9:00 AM EST Appointment Cat Scan [address] [place] [address] Flank pain [R10.9] Cat Scan Comment on above: Flank pain [R10.9] Start: 12-31-2023 End: 12-31-2023 Patient encounter procedure 12/31/2023 7:00 AM EST Appointment Radiology [address] [place] [address] RUQ pain [R10.11]; Flank pain [R10.9] Radiology Comment on above: RUQ pain [R10.11]; Flank pain [R10.9] Start: 12-28-2023 End: 12-28-2023 Patient encounter procedure 12/28/2023 1:40 PM EST Office Visit Family [facility] [address] [facility] [place] [address] Misty Willams APRN.PIPELINE INTEGRITY ENGINEER [address] [place] [address] 1 week f/u [facility] Comment on above: 1 week f/u Start: 12-22-2023 End: 03-22-2024 Bacteria identified in Urine by Culture [facility] Comment on above: Expected: 12/22/2023, Expires: Start: 12-22-2023 End: 03-22-2024 CBC W Auto Differential panel - Blood [facility] Work Phone: Comment on above: Expected: 12/22/2023, Expires: Start: 12-22-2023 End: 03-22-2024 Comprehensive metabolic 2000 panel - Serum or Plasma [facility] Comment on above: Expected: 12/22/2023, Expires: Start: 12-22-2023 End: 03-22-2024 Lipase [Enzymatic activity/volume] in Serum or Plasma [facility] Comment on above: Expected: 12/22/2023, Expires: Start: 12-22-2023 End: 03-22-2024 LIPID PANEL, NONFASTING [facility] Comment on above: Expected: 12/22/2023, Expires: Start: 12-22-2023 End: 03-22-2024 Urinalysis complete panel - Urine [facility] Comment on above: Expected: 12/22/2023, Expires: Start: 12-22-2023 End: 12-22-2023 Patient encounter procedure 12/22/2023 8:00 AM EST Office Visit [facility] [address] [facility] [place] [address] Ariana Bhagat MD [address] [place] [address] 3 month follow up Family [facility] [place] Comment on above: 3 month follow up Start: 11-03-2023 Annual PCP Team Chronic Disease Visit Annual PCP Team Chronic Disease Visit [facility] Start: 10-07-2023 Influenza vaccination [facility] Start: 09-14-2023 Depression Screening Depression Screening [facility] Comment on above: Postponed from 07/07/2007 (Declined at t his time) Start: 09-14-2023 End: 09-14-2023 Patient encounter procedure 09/14/2023 11:20 AM EDT Office Visit Family [facility] [place] [address] [place] [address] Ariana Bhagat MD [address] [place] [address] 2 month follow up Family [facility] [place] Comment on above: 2 month follow up Start: 09-09-2023 ANNUAL PCP TEAM CHRONIC DISEASE VISIT ANNUAL PCP TEAM CHRONIC DISEASE VISIT [facility] Start: 09-08-2023 ANNUAL PCP TEAM CHRONIC DISEASE VISIT ANNUAL PCP TEAM CHRONIC DISEASE VISIT [facility] Start: 09-08-2023 SPIROMETRY SPIROMETRY [facility] Comment on above: Postponed from 07/07/2007 (Postponed - N ot Clinically Indicated) Start: 08-25-2023 ANNUAL PCP TEAM CHRONIC DISEASE VISIT ANNUAL PCP TEAM CHRONIC DISEASE VISIT [facility] Start: 08-08-2023 ANNUAL PCP TEAM CHRONIC DISEASE VISIT ANNUAL PCP TEAM CHRONIC DISEASE VISIT [facility] Start: 08-05-2023 Influenza vaccination Influenza Vaccine (#1) [facility] Comment on above: Postponed from 10/06/2022 (Declined at t his time) Start: 07-20-2023 End: 10-19-2023 25-hydroxyvitamin D3 [Mass/volume] in Serum or Plasma VITAMIN D 25 HYDROXY Lab Routine Vitamin D deficiency Expected: 07/20/2023, Expires: 10/19/2023 [facility] Comment on above: Expected: 07/20/2023, Expires: Start: 07-20-2023 End: 10-19-2023 CBC W Auto Differential panel - Blood COMPLETE BLOOD COUNT AND DIFFERENTIAL Lab Routine Hyperlipidemia LDL goal <130 Expected: 07/20/2023, Expires: 10/19/2023 [facility] Work Phone: Comment on above: Expected: 07/20/2023, Expires: Start: 07-20-2023 End: 10-19-2023 Comprehensive metabolic 2000 panel - Serum or Plasma COMPREHENSIVE METABOLIC PANEL Lab Routine Hyperlipidemia LDL goal <130 Expected: 07/20/2023, Expires: 10/19/2023 [facility] Comment on above: Expected: 07/20/2023, Expires: Start: 07-20-2023 End: 10-19-2023 Lipid 1996 panel - Serum or Plasma LIPID PANEL BASIC Lab Routine Hyperlipidemia LDL goal <130 Expected: 07/20/2023, Expires: 10/19/2023 [facility] Comment on above: Expected: 07/20/2023, Expires: Start: 07-20-2023 End: 07-20-2023 Patient encounter procedure 07/20/2023 8:40 AM EDT Office Visit Family [facility] [place] [address] [place] [address] Ariana Bhagat MD [address] [place] [address] follow up Family Medicine [facility] Comment on above: follow up Start: 06-09-2023 ANNUAL PCP TEAM CHRONIC DISEASE VISIT ANNUAL PCP TEAM CHRONIC DISEASE VISIT [facility] Start: 05-10-2023 ANNUAL PCP TEAM CHRONIC DISEASE VISIT ANNUAL PCP TEAM CHRONIC DISEASE VISIT [facility] Start: 05-01-2023 End: 04-30-2024 US Pelvis PELVIC US [facility] Imaging Routine Ovarian cyst, right Right lower quadrant abdominal pain Expected: 05/01/2023, Expires: 04/30/2024 [facility] Work Phone: Comment on above: Expected: 05/01/2023, Expires: Start: 04-19-2023 ANNUAL PCP TEAM CHRONIC DISEASE VISIT ANNUAL PCP TEAM CHRONIC DISEASE VISIT [facility] Start: 03-20-2023 ANNUAL PCP TEAM CHRONIC DISEASE VISIT ANNUAL PCP TEAM CHRONIC DISEASE VISIT [facility] Start: 03-10-2023 End: 05-10-2023 Lipid 1996 panel - Serum or Plasma LIPID PANEL BASIC Lab Routine Hyperlipidemia LDL goal <130 Expected: 03/10/2023, Expires: 05/10/2023 [facility] Work Phone: Comment on above: Expected: 03/10/2023, Expires: Start: 02-05-2023 Behavioral Health Screening Behavioral Health Screening [facility] Start: 02-05-2023 Depression Assessment Depression Assessment [facility] Start: 12-20-2022 ANNUAL PCP TEAM CHRONIC DISEASE VISIT ANNUAL PCP TEAM CHRONIC DISEASE VISIT [facility] Start: 10-13-2022 End: 12-13-2022 Hemoglobin A1c in Blood HGB A1C Lab Routine Polyuria Vision changes Expected: 10/13/2022, Expires: 12/13/2022 [facility] Work Phone: Comment on above: Expected: 10/13/2022, Expires: 3 Start: 10-06-2022 Covid-19 Vaccine ( season) Covid-19 Vaccine () [facility] Start: 10-06-2022 Influenza vaccination INFLUENZA (#1) [facility] Start: 09-07-2022 End: 11-07-2022 25-hydroxyvitamin D3 [Mass/volume] in Serum or Plasma [facility] Work Phone: Comment on above: Expected: 09/07/2022, Expires: 3 Start: 09-07-2022 End: 11-07-2022 Comprehensive metabolic 2000 panel - Serum or Plasma [facility] Work Phone: Comment on above: Expected: 09/07/2022, Expires: 3 Start: 09-07-2022 End: 11-07-2022 Hepatitis C virus Ab [Presence] in Serum [facility] Work Phone: Comment on above: Expected: 09/07/2022, Expires: 3 Start: 09-07-2022 End: 11-07-2022 HIV 1+2 Ab [Presence] in Serum or Plasma by Immunoassay [facility] Work Phone: Comment on above: Expected: 09/07/2022, Expires: 3 Start: 09-05-2022 ANNUAL PCP TEAM CHRONIC DISEASE VISIT ANNUAL PCP TEAM CHRONIC DISEASE VISIT [facility] Start: 09-04-2022 Adult depression screening assessment DEPRESSION SCREENING [facility] Start: 05-09-2022 End: 07-09-2022 Comprehensive metabolic 2000 panel - Serum or Plasma [facility] Work Phone: Comment on above: Expected: 05/09/2022, Expires: 3 Start: 04-12-2022 End: 06-12-2022 Bacteria identified in Urine by Culture URINE CULTURE Microbiology Routine Polyuria Vision changes Expected: 04/12/2022, Expires: 06/12/2022 [facility] Work Phone: Comment on above: Expected: 04/12/2022, Expires: 3 Start: 04-12-2022 End: 06-12-2022 CBC W Auto Differential panel - Blood CBC + DIFF Lab Routine Polyuria Vision changes Expected: 04/12/2022, Expires: 06/12/2022 [facility] Work Phone: Comment on above: Expected: 04/12/2022, Expires: 3 Start: 04-12-2022 End: 06-12-2022 Comprehensive metabolic 2000 panel - Serum or Plasma COMP METABOLIC PANEL Lab Routine Polyuria Vision changes Expected: 04/12/2022, Expires: 06/12/2022 [facility] Work Phone: Comment on above: Expected: 04/12/2022, Expires: 3 Start: 04-12-2022 End: 06-12-2022 Urinalysis complete panel - Urine URINALYSIS, WITH MICROSCOPIC Lab Routine Polyuria Vision changes Expected: 04/12/2022, Expires: 06/12/2022 [facility] Work Phone: Comment on above: Expected: 04/12/2022, Expires: 3 Start: 02-05-2022 DEPRESSION ASSESSMENT DEPRESSION ASSESSMENT [facility] Start: 01-19-2022 End: 03-21-2022 T4/FTI/T4U T4/FTI/T4U Lab Routine Screening for thyroid disorder Unintended weight gain Expected: 01/19/2022, Expires: 03/21/2022 [facility] Work Phone: Comment on above: Expected: 01/19/2022, Expires: 3 Start: 01-19-2022 End: 03-21-2022 Thyrotropin [Units/volume] in Serum or Plasma TSH BLD Lab Routine Screening for thyroid disorder Unintended weight gain Expected: 01/19/2022, Expires: 03/21/2022 [facility] Work Phone: Comment on above: Expected: 01/19/2022, Expires: 3 Start: 01-19-2022 End: 03-21-2022 Triiodothyronine (T3) [Mass/volume] in Serum or Plasma T3 BLD Lab Routine Screening for thyroid disorder Unintended weight gain Expected: 01/19/2022, Expires: 03/21/2022 [facility] Work Phone: Comment on above: Expected: 01/19/2022, Expires: 3 Start: 10-17-2021 End: 12-17-2021 CBC W Auto Differential panel - Blood CBC + DIFF Lab Routine Thrombocytosis Expected: 10/17/2021, Expires: 12/17/2021 [facility] Work Phone: Comment on above: Expected: 10/17/2021, Expires: 2 Start: 10-14-2021 End: 12-14-2021 CELIAC SCREEN WITH REFLEX CELIAC SCREEN WITH REFLEX Lab Routine Thrombocytosis Iron deficiency Iron deficiency anemia, unspecified iron deficiency anemia type Expected: 10/14/2021, Expires: 12/14/2021 [facility] Work Phone: Comment on above: Expected: 10/14/2021, Expires: 2 Start: 10-14-2021 End: 12-14-2021 Helicobacter pylori IgG Ab [Presence] in Serum or Plasma by Immunoassay H PYLORI IGG AB Lab Routine Thrombocytosis Iron deficiency Iron deficiency anemia, unspecified iron deficiency anemia type Expected: 10/14/2021, Expires: 12/14/2021 [facility] Work Phone: Comment on above: Expected: 10/14/2021, Expires: 2 Start: 10-06-2021 Influenza vaccination [facility] Start: 08-20-2021 End: 10-20-2021 Platelets [#/volume] in Blood PLTCT (PLATELET COUNT) Lab Routine Thrombocytosis Expected: 08/20/2021, Expires: 10/20/2021 [facility] Work Phone: Comment on above: Expected: 08/20/2021, Expires: 2 Start: 08-19-2021 ANNUAL PCP TEAM CHRONIC DISEASE VISIT ANNUAL PCP TEAM CHRONIC DISEASE VISIT [facility] Start: 08-02-2021 End: 10-02-2021 25-hydroxyvitamin D3 [Mass/volume] in Serum or Plasma VITAMIN D 25 HYDROXY Lab Routine Vitamin D deficiency Expected: 08/02/2021, Expires: 10/02/2021 [facility] Work Phone: Comment on above: Expected: 08/02/2021, Expires: 2 Start: 08-02-2021 End: 08-02-2022 CBC W Auto Differential panel - Blood CBC + DIFF Lab Routine Shellfish allergy Expected: 08/02/2021, Expires: 08/02/2022 [facility] Work Phone: Comment on above: Expected: 08/02/2021, Expires: 3 Start: 08-02-2021 End: 08-02-2022 Comprehensive metabolic 2000 panel - Serum or Plasma COMP METABOLIC PANEL Lab Routine Hyperlipidemia LDL goal <130 Expected: 08/02/2021, Expires: 08/02/2022 [facility] Work Phone: Comment on above: Expected: 08/02/2021, Expires: 3 Start: 08-02-2021 End: 08-02-2022 Lipid 1996 panel - Serum or Plasma LIPID PANEL BASIC Lab Routine Hyperlipidemia LDL goal <130 Expected: 08/02/2021, Expires: 08/02/2022 [facility] Work Phone: Comment on above: Expected: 08/02/2021, Expires: 3 Start: 05-30-2021 End: 07-30-2021 HEPATIC FUNCTION PNL HEPATIC FUNCTION PNL Lab Routine Hyperlipidemia LDL goal <130 Expected: 05/30/2021, Expires: 07/30/2021 [facility] Work Phone: Comment on above: Expected: 05/30/2021, Expires: 2 Start: 05-30-2021 End: 07-30-2021 LIPID PANEL BASIC LIPID PANEL BASIC Lab Routine Hyperlipidemia LDL goal <130 Expected: 05/30/2021, Expires: 07/30/2021 [facility] Work Phone: Comment on above: Expected: 05/30/2021, Expires: 2 Start: 02-05-2021 DEPRESSION ASSESSMENT DEPRESSION ASSESSMENT [facility] Start: 01-20-2021 PAP TESTING PAP TESTING [facility] Start: 01-12-2021 Adult depression screening assessment DEPRESSION SCREENING [facility] Start: 09-23-2020 COVID-19 VACCINE (3 - Booster for Pfizer series) COVID-19 VACCINE (3 - Booster for Pfizer series) [facility] Start: 07-07-2019 HPV TESTING HPV TESTING [facility] Start: 11-25-2016 PNEUMOCOCCAL (2 - PCV) PNEUMOCOCCAL (2 - PCV) [facility] Start: 07-07-2007 Anxiety Screening Anxiety Screening [facility] Start: 07-07-2007 Depression Screening Depression Screening [facility] Start: 07-07-2007 HEPATITIS C SCREENING HEPATITIS C SCREENING [facility] Start: 07-07-2007 HIV SCREENING HIV SCREENING [facility] Start: 07-07-2007 SPIROMETRY SPIROMETRY [facility] Start: 1989 HEPATITIS B (1 of 3 - 3-dose series) HEPATITIS B (1 of 3 - 3-dose series) [facility] Calprotectin [Mass/m ass] in Stool CALPROTECTIN,FECAL Lab Routine Terminal ileitis with complication (HCC) Ordered: 12/06/2021 [facility] Work Phone: Comment on above: Ordered: 12/06/2021 End: 10-14-2022 COLONOSCOPY DIAGNOSTIC COLONOSCOPY DIAGNOSTIC Endoscopy Routine Thrombocytosis Iron deficiency Iron deficiency anemia, unspecified iron deficiency anemia type 1 Occurrences starting 10/14/2021 until 10/14/2022 [facility] Work Phone: Comment on above: 1 Occurrences starting 10/14/2021 until 10/14/2022 COVID & INFLUENZA A/ B & RSV PCR, ROUTINE COVID & INFLUENZA A/B & RSV PCR, ROUTINE Microbiology Routine Pharyngitis, unspecified etiology URI, acute Ordered: 01/19/2024 [facility] Work Phone: Comment on above: Ordered: 01/19/2024 End: 01-05-2023 Ct abdomen & pelvis w/contrast material CT ENTEROGRAPHY W IVCON Radiology Routine Terminal ileitis with complication (HCC) 1 Occurrences starting 12/06/2021 until 01/05/2023 [facility] Work Phone: Comment on above: 1 Occurrences starting 12/06/2021 until 01/05/2023 End: 01-22-2025 CT Kidney WO and W contrast IV CT UROGRAM WO/W IVCON Radiology Routine Flank pain Microscopic hematuria 1 Occurrences starting 12/24/2023 until 01/22/2025 [facility] Work Phone: Comment on above: 1 Occurrences starting 12/24/2023 until 01/22/2025 Cystourethroscopy CYSTOSCOPY End ometriosis of ovary [facility] End: 08-14-2025 DBT Breast - bilateral diagnostic for implant CATHY DIAG W ROSAS BILATERAL Radiology Routine Breast pain 1 Occurrences starting 07/15/2024 until 08/14/2025 [facility] Work Phone: Comment on above: 1 Occurrences starting 07/15/2024 until 08/14/2025 End: 10-14-2022 EGD DIAGNOSTIC EGD DIAGNOSTIC Endoscopy Routine Thrombocytosis Iron deficiency Iron deficiency anemia, unspecified iron deficiency anemia type 1 Occurrences starting 10/14/2021 until 10/14/2022 [facility] Work Phone: Comment on above: 1 Occurrences starting 10/14/2021 until 10/14/2022 H&P for surgery H&P FOR SURGERY Procedures Routine Endometriosis of ovary Ordered: 05/09/2024 [facility] Comment on above: Ordered: 05/09/2024 Hemoglobin.gastroint estina l.lower [Presence] in Stool by Immunoassay FECAL OCCULT BLOOD TEST Lab Routine Obesity, Class III, BMI 40-49.9 (morbid obesity) (HCC) Ordered: 08/07/2022 [facility] Work Phone: Comment on above: Ordered: 08/07/2022 End: 04-18-2023 HOME SLEEP APNEA TEST (HSAT) HOME SLEEP APNEA TEST (HSAT) Procedures Routine Obesity, Class III, BMI 40-49.9 (morbid obesity) ([facility]) Fatigue, unspecified type 1 Occurrences starting 04/18/2022 until 04/18/2023 [facility] Work Phone: Comment on above: 1 Occurrences starting 04/18/2022 until 04/18/2023 Influenza virus A an d B RNA and SARS-CoV-2 (COVID-19) N gene panel - Respiratory specimen by NU with probe detection COVID WITH FLUA+B, ROUTINE Microbiology Routine Congestion of upper airway 09/07/2022 9:08 AM EDT [facility] Work Phone: Laps total hysterect 250 gm/< w/rmvl tube/ovary LAPAROSCOPIC HYSTERECTOMY TOTAL FOR UTERUS 250 G OR LESS W/REMOVAL TUBE(S) AND/OR OVARY(S) Endometriosis of ovary [facility] Lipid 1996 panel - S kike or Plasma LIPID PANEL BASIC Lab Routine Hyperlipidemia LDL goal <130 09/07/2022 9:18 AM EDT [facility] Work Phone: End: 01-11-2024 CATHY DIAGNOSTIC BILATERAL CATHY DIAGNOSTIC BILATERAL Radiology Routine Breast pain 1 Occurrences starting 12/12/2022 until 01/11/2024 [facility] Work Phone: Comment on above: 1 Occurrences starting 12/12/2022 until 01/11/2024 End: 03-08-2025 MR Pelvis WO and W contrast IV MRI FEMALE PELVIS WO/W IVCON Radiology Routine Other intra-abdominal and pelvic swelling, mass and lump 1 Occurrences starting 02/07/2024 until 03/08/2025 [facility] Work Phone: Comment on above: 1 Occurrences starting 02/07/2024 until 03/08/2025 MR Pelvis WO and W contrast IV MRI FEMALE PELVIS WO/W IVCON Radiology Routine Other intra-abdominal and pelvic swelling, mass and lump 02/08/2024 3:43 PM [facility] Work Phone: PAP FLUID CERVICAL SCREENING PAP FLUID CERVICAL SCREENING Lab Routine Screening for cervical cancer Encounter for screening for human papillomavirus (HPV) 01/19/2022 10:14 AM [facility] Work Phone: Patient Education [facility] Work Phone: Patient referral [facility] Work Phone: REFER FOR ADMIT INTERVIEW REFER FOR ADMIT INTERVIEW Procedures Routine Endometriosis of ovary Ordered: 05/09/2024 [facility] Work Phone: Comment on above: Ordered: 05/09/2024 SARS-CoV-2 (COVID-19 ) RNA [Presence] in Respiratory specimen by NU with probe detection COVID NAAT, UPPER RESPIRATORY, ROUTINE Microbiology Routine URI, acute Ordered: 05/09/2023 [facility] Work Phone: Comment on above: Ordered: 05/09/2023 Urinalysis complete panel - Urine URINALYSIS, WITH MICROSCOPIC Lab Routine Microscopic hematuria 01/19/2024 11:56 AM [facility] End: 01-20-2025 US Abdomen RUQ US ABD RIGHT UPPER QUADRANT Radiology Routine RUQ pain Flank pain 1 Occurrences starting 12/22/2023 until 01/20/2025 [facility] Comment on above: 1 Occurrences starting 12/22/2023 until 01/20/2025 End: 10-05-2022 Us abdominal real time w/image limited US ABD RT UPPER QUADRANT Radiology Routine Generalized abdominal pain 1 Occurrences starting 09/05/2021 until 10/05/2022 [facility] Work Phone: Comment on above: 1 Occurrences starting 09/05/2021 until 10/05/2022 End: 08-14-2025 US Breast - left limited US BREAST LTD LEFT Radiology Routine Breast pain 1 Occurrences starting 07/15/2024 until 08/14/2025 [facility] Comment on above: 1 Occurrences starting 07/15/2024 until 08/14/2025 End: 08-14-2025 US Breast - right limited US BREAST LTD RIGHT Radiology Routine Breast pain 1 Occurrences starting 07/15/2024 until 08/14/2025 [facility] Comment on above: 1 Occurrences starting 07/15/2024 until 08/14/2025 End: 01-11-2024 US BREAST LTD LEFT US BREAST LTD LEFT Radiology Routine Breast pain 1 Occurrences starting 12/12/2022 until 01/11/2024 [facility] Work Phone: Comment on above: 1 Occurrences starting 12/12/2022 until 01/11/2024 End: 01-12-2024 US BREAST LTD RIGHT US BREAST LTD RIGHT Radiology Routine Breast pain 1 Occurrences starting 12/12/2022 until 01/12/2024 [facility] Work Phone: Comment on above: 1 Occurrences starting 12/12/2022 until 01/12/2024 End: 10-05-2022 Us pelvic nonobstetric image dcmtn limited/f/u US FEMALE PELVIS TRANSABD LTD Radiology Routine Ovarian cyst, bilateral 1 Occurrences starting 09/05/2021 until 10/05/2022 [facility] Work Phone: Comment on above: 1 Occurrences starting 09/05/2021 until 10/05/2022 End: 05-30-2024 US Pelvis transvaginal US FEMALE PELVIS TRANSVAG Radiology Routine Ovarian cyst, right Right lower quadrant abdominal pain 1 Occurrences starting 05/01/2023 until 05/30/2024 [facility] Work Phone: Comment on above: 1 Occurrences starting 05/01/2023 until 05/30/2024 End: 02-16-2025 US Pelvis transvaginal US FEMALE PELVIS TRANSVAG Radiology Routine Adnexal cyst 1 Occurrences starting 01/18/2024 until 02/16/2025 [facility] Work Phone: Comment on above: 1 Occurrences starting 01/18/2024 until 02/16/2025 US Pelvis transvaginal US FEMALE PELVIS TRANSVAG Radiology Routine Adnexal cyst 02/01/2024 9:50 AM EST [facility] Work Phone: End: 10-13-2024 XR Knee - left 4 Views XR KNEE GENERAL 4V AP BOTH/PA BOTH/LAT/MERC LEFT Radiology Routine Bone lesion 1 Occurrences starting 09/14/2023 until 10/13/2024 [facility] Work Phone: Comment on above: 1 Occurrences starting 09/14/2023 until 10/13/2024 XR Knee - left 4 Views XR KNEE G ENERAL 4V AP BOTH/PA BOTH/LAT/MERC LEFT Radiology Routine Bone lesion 09/14/2023 12:10 PM EDT [facility] End: 01-26-2025 XR Lumbar spine 3 Views XR LUMBAR GENERAL 3V AP/LAT/L5-S1 Radiology Routine Flank pain Right-sided low back pain with right-sided sciatica, unspecified chronicity 1 Occurrences starting 12/28/2023 until 01/26/2025 [facility] Comment on above: 1 Occurrences starting 12/28/2023 until 01/26/2025 XR Lumbar spine 3 Views XR LUMBA R GENERAL 3V AP/LAT/L5-S1 Radiology Routine Flank pain Right-sided low back pain with right-sided sciatica, unspecified chronicity 12/31/2023 7:50 AM EST [facility] End: 01-26-2025 XR Thoracic spine AP and Lateral and Swimmers XR THORACIC GENERAL 3V AP/LAT/SWIMMERS Radiology Routine Flank pain 1 Occurrences starting 12/28/2023 until 01/26/2025 [facility] Work Phone: Comment on above: 1 Occurrences starting 12/28/2023 until 01/26/2025 XR Thoracic spine AP and Lateral and Swimmers XR THORACIC GENERAL 3V AP/LAT/SWIMMERS Radiology Routine Flank pain 12/31/2023 7:49 AM EST [facility] Work Phone: [facility]izations Immun[facility] Date Immunization Notes Care Provider Kourtney valear 10-21-2023 COVID-19 vaccine, ag e 12+ yr (PFIZER-BIONTECH COMIRNATY) Misty Willams RESIDENTIAL PROGRAM COORDINATOR.PIPELINE INTEGRITY ENGINEER Work Phone: [facility] 10-21-2023 Seasonal trivalent influenza vaccine, adjuvanted, preservative free Misty Willams RESIDENTIAL PROGRAM COORDINATOR.PIPELINE INTEGRITY ENGINEER Work Phone: [facility] 11-28-2022 COVID-19 vaccine, ag e 12+ yr, season (PFIZER-BIONTECH) Katy Craig PA-C Work Phone: [facility] 08-16-2022 pneumococcal (PCV20) vaccine, 20 valent (PREVNAR 20) Erna Amado RESIDENTIAL PROGRAM COORDINATOR.PIPELINE INTEGRITY ENGINEER Work Phone: [facility] 12-11-2021 influenza, injectabl e, quadrivalent, preservative free Erna Amado RESIDENTIAL PROGRAM COORDINATOR.PIPELINE INTEGRITY ENGINEER Work Phone: [facility] 12-11-2021 influenza, seasonal, injectable Misty Willams RESIDENTIAL PROGRAM COORDINATOR.PIPELINE INTEGRITY ENGINEER Work Phone: [facility] 12-11-2021 influenza virus vacc ine, unspecified formulation Ariana Bhagat MD Work Phone: [facility] 10-09-2021 COVID-19 vaccine, ag e 18+ yr, bivalent booster (MODERNA) Ariana Bhagat MD Work Phone: [facility] 11-14-2020 COVID-19 original vaccine, age 12+ yr, monovalent (PFIZER-BIONTECH - PURPLE TOP) Erna Amado RESIDENTIAL PROGRAM COORDINATOR.PIPELINE INTEGRITY ENGINEER Work Phone: [facility] 04-23-2020 COVID-19 vaccine, ag e 12+ yr (PFIZER-BIONTECH - PURPLE TOP) Ariana Bhagat MD Work Phone: [facility] Work Phone: 04-02-2020 COVID-19 vaccine, ag e 12+ yr (PFIZER-BIONTECH - PURPLE TOP) Ariana Bhagat MD Work Phone: [facility] Work Phone: 11-25-2018 influenza virus vacc ine, unspecified formulation Ariana Bhagat MD Work Phone: [facility] Work Phone: 08-07-2018 diphtheria, tetanus toxoids and acellular pertussis vaccine, unspecified formulation Ariana Bhagat MD Work Phone: [facility] Work Phone: 10-30-2017 influenza, injectabl e, quadrivalent, contains preservative Ariana Bhagat MD Work Phone: [facility] 11-26-2015 pneumococcal polysaccharide vaccine, 23 valent Ariana Bhagat MD Work Phone: [facility] 11-26-2015 tetanus toxoid, redu diamond diphtheria toxoid, and acellular pertussis vaccine, adsorbed Ariana Bhagat MD Work Phone: [facility] Payers Date Payer Category Payer Self-pay [id number] 2023 [facility] [id number] 2023 Unknown [id number] 2020 Unknown ANNE [employer] PPO [id number] 2020-Present [phone] [address] [place] [address] PPO [id number] 2020 Unknown [id number] 2020 Unknown [id number] 2019 Medicaid [facility] [employer]ICA[employer] [id number] 2019-Present [phone] [address] [place] [address] Medicaid [id number] 2019 Medicaid [facility] [employer] MEDICA[employer] [id number] 2019-Present [phone] [address] [place] [address] Medicaid [id number] Unknown [id number] Unknown [employer] 0 [id number] Unknown [id number] Unknown [id number] Unknown [id number] Unknown [id number] Social History Date Type Detail Facility Start: 11-19-2012 Tobacco smoking stat us NHIS Never smoked tobacco [facility] Start: 11-19-2012 Tobacco use and exposure Smokeless tobacco non-user [facility] Start: 01-13-2020 End: 06-25-2024 Alcohol intake Current non-drinker of alcohol (finding) [facility] Start: 01-14-2020 End: 09-05-2021 History SDOH Alcohol Frequency 1 [facility] Start: 01-14-2020 End: 09-05-2021 History SDOH Alcohol Std Drinks 98 [facility] Start: 01-14-2020 End: 09-05-2021 History SDOH Social Connections Phone 5 [facility] Start: 01-14-2020 End: 03-18-2022 History SDOH Social Connections [employer] 3 [facility] Start: 01-14-2020 End: 09-05-2021 History SDOH Social Connections Living 7 [facility] Start: 01-14-2020 End: 03-18-2022 History SDOH Physical Activity DPW 0 [facility] Start: 01-14-2020 End: 03-18-2022 History SDOH Transport Med 2 [facility] Start: 01-13-2020 Education 14 [facility] Start: 1990 Sex Assigned At Female C [facility] Start: 08-23-2021 End: 12-09-2022 Tobacco smoking status NHIS Unknown if ever smoked [facility] Start: 07-17-2018 None [facility] Start: 07-17-2018 Alone [facility] Start: 08-26-2021 End: 11-28-2021 Exposure to SARS-CoV-2 (event) Not sure [facility] Start: 03-18-2022 End: 08-07-2022 History of Social function [facility] Start: 03-18-2022 End: 08-07-2022 Social connection and isolation panel [facility] In a typical week, h ow many times do you talk on the telephone with family, friends, or neighbors? Patient refused [facility] Are you now , , , , never or living with a partner? Refused [facility] How often to you hav e a drink containing alcohol? Never [facility] (I/We) worried wheth er (my/our) food would run out before (I/we) got money to buy more. DK or Refused [facility] In the past 12 month s, was there a time when you were not able to pay the mortgage or rent on time? No [facility] Are you now , , , , never or living with a partner? Never [facility] Do you feel stress - tense, restless, nervous, or anxious, or unable to sleep at night because your mind is troubled all the time - these days [OSQ] Not at all [facility] (I/We) worried wheth er (my/our) food would run out before (I/we) got money to buy more. Never true [facility] Start: 1990 Sex assigned at Not on file [facility] NEGATED: Highlighted row [facility] Functional Status Date Assessment Result Facility 07-15-2024 Total score [AUDIT-C] 0 07/16/19 25 4:04 PM EDT User, Eyad [facility] 07-15-2024 How often to you hav e a drink containing alcohol? Never 07/15/2024 4:04 PM EDT User, Mychart Never [facility] 07-15-2024 Functional status Patient does n ot drink 07/15/2024 4:04 PM EDT User, Eyad Patient does not drink [facility] 07-15-2024 How often do you hav e 6 or more drinks on 1 occasion? Never 07/15/2024 4:04 PM EDT User, Mychart Never [facility] 07-01-2024 Are you deaf, or do you have serious difficulty hearing No 07/01/2024 8:21 PM EDT Enid Betts, MICHAEL No [facility] 07-01-2024 Are you blind, or do you have serious difficulty seeing, even when wearing glasses No 07/01/2024 8:21 PM EDT Enid Betts RN No [facility] 07-01-2024 Do you have serious difficulty walking or climbing stairs No 07/01/2024 8:21 PM Enid Hardy, MICHAEL No [facility] 07-01-2024 Do you have difficul ty dressing or bathing No 07/01/2024 8:21 PM Enid Hardy, RN No [facility] 07-01-2024 Because of a physica l, mental, or emotional condition, do you have difficulty doing errands alone such as visiting a physician's office or shopping No 07/01/2024 8:21 PM Enid Hardy, MICHAEL No [facility] 03-12-2017 Are you deaf, or do you have serious difficulty hearing No 03/12/2017 9:33 AM Juan M Raman III, MD No [facility] 03-12-2017 Are you blind, or do you have serious difficulty seeing, even when wearing glasses No 03/12/2017 9:33 AM JuanM Raman III, MD No [facility] 03-12-2017 Do you have serious difficulty walking or climbing stairs No 03/12/2017 9:33 AM Juan M Raman III, MD No [facility] 03-12-2017 Do you have difficul ty dressing or bathing No 03/12/2017 9:33 AM Juan M Raman III, MD [facility] 03-12-2017 Because of a physica l, mental, or emotional condition, do you have difficulty doing errands alone such as visiting a physician's office or shopping No 03/12/2017 9:33 AM Juan M Raman III, MD No [facility] Mental Status Date Assessment Result Facility 07-01-2024 Because of a physica l, mental, or emotional condition, do you have serious difficulty concentrating, remembering, or making decisions No 07/01/2024 8:21 PM Enid Hardy, MICHAEL No [facility] 03-12-2017 Because of a physica l, mental, or emotional condition, do you have serious difficulty concentrating, remembering, or making decisions No 03/12/2017 9:33 AM Juan M Raman III, MD No [facility] Clinical Notes 03-03-2014 to 07-21-2024 Telephone Encounter - Rosey Mandel LPN - 07/21/2024 8:24 AM EDTTelephone Encounter - Rosey Mandel LPN - 07/21/2024 8:24 AM EDTTelephone Encounter - Rosey Mandel LPN - 07/21/2024 8:16 AM EDT Note Date & Type Note Facility 07-21-2024 Telephone encounter Note Images from the original note were not included. Prior authorization approved Payer: JOSE Obrien [phone] Note from payer: Your PA request has been approved. Additional information will be provided in the approval communication. (Message 1143) Approval Details Authorized from July 21, 2024 to February 16, 2025 Electronic appeal: Not supported View History Notes Time User Attachment Attachment received from pay. 07/21/2024 8:18 AM [facility], Rx Priorauth In Document Medication Being Authorized semaglutide, weight loss, (WEGOVY) 0.25 mg/0.5 mL pen injector Inject 0.25 mg subcutaneously one time a week for 28 days. Dispense: 2 mL Refills: 0 Start: 07/18/2024 End: 08/15/2024 Class: Normal Diagnoses: Class 3 severe obesity with body mass index (BMI) of 45.0 to 49.9 in adult, unspecified obesity type, unspecified whether serious comorbidity present (HCC) This order has been released to its destination. To be filled at: [facility]/pharmacy #[id number] [place] [address] [address] [facility]. - [phone] [facility] [address] [phone] Pt notified via my chart. [facility] 07-21-2024 Miscellaneous Notes Images from the original note were not included. Prior authorization approved Payer: JOSE Obrien [phone] Note from payer: Your PA request has been approved. Additional information will be provided in the approval communication. (Message 1140) Approval Details Authorized from July 21, 2024 to February 16, 2025 Electronic appeal: Not supported View History Notes Time User Attachment Attachment received from payer. 07/21/2024 8:18 AM [facility], Rx Priorauth In Document Medication Being Authorized semaglutide, weight loss, (WEGOVY) 0.25 mg/0.5 mL pen injector Inject 0.25 mg subcutaneously one time a week for 28 days. Dispense: 2 mL Refills: 0 Start: 07/18/2024 End: 08/15/2024 Class: Normal Diagnoses: Class 3 severe obesity with body mass index (BMI) of 45.0 to 49.9 in adult, unspecified obesity type, unspecified whether serious comorbidity present (HCC) This order has been released to its destination. To be filled at: [email or web address]/pharmacy #[id number] [place] [address] [address] [facility]. - [phone] [address] [facility] [id number] Pt notified via my chart. Electronic PA rec'd and completed for wegovy documented in this encounter [facility] 07-21-2024 Telephone encounter Note Electronic PA rec'd and completed for wegovy [facility] 07-18-2024 Telephone encounter Note Rx sent [facility] 07-18-2024 Miscellaneous Notes Rx sent Patient calling said she just spoke to her insurance and was told to have Wygovy rx sent to [facility] pharmacy. Explained to patient that medication would have to have PA done on it also. Please advise documented in this encounter [facility] 07-18-2024 Telephone encounter Note Patient calling said she just spoke to her insurance and was told to have Wygovy rx sent to [facility] pharmacy. Explained to patient that medication would have to have PA done on it also. Please advise [facility] 07-18-2024 Telephone encounter Note Patient returned call and given provider's message below and patient verbalized understanding. Angelo Anderson RN [facility] 07-18-2024 Miscellaneous Notes Patient returned call and given provider's message below and patient verbalized understanding. Angelo Anderson RN Left message for patient. Patient can check for copay cards. They all cost about the same. Patient updated that she would have to pay out of pocket for Ozempic, as her insurance does not cover it and only covers this drug when it is used for certain health conditions. Covered use is for type [address] Patient asking [address] Bhagat if a lower cost alternative could be ordered for her? Bel Anderson RN Left vm for patient to return call to nurse for provider's message. Let her know she would have to pay out of pocket. Why your request was denied: Your plan only covers this drug when it is used for certain health conditions. Covered use is for type 2 diabetes mellitus. Your plan does not cover the drug for your health condition that your doctor told us you have. We reviewed the information we had. Your request has been denied. Images from the original note were not included. Note from payer: Your PA request has been denied. Additional information will be provided in the denial communication. (Message 1140) Payer: [facility] [phone] Electronic appeal: Not supported Appeal instructions: Your PA request has been denied. Additional information will be provided in the denial communication. (Message 1140) View History Notes Time User Attachment Attachment received from payer. 07/16/2024 10:38 AM [facility], Rx Priorauth In Document Medication Being Authorized semaglutide (OZEMPIC) 0.25 mg or 0.5 mg (2 mg/3 mL) pen Inject 0.5 mg subcutaneously one time a week for 28 days. After starting 0.25 for one week. Dispense: 3 mL Refills: 0 Start: 07/15/2024 End: 08/12/2024 Class: Normal Diagnoses: Class 3 severe obesity with body mass index (BMI) of 45.0 to 49.9 in adult, unspecified obesity type, unspecified whether serious comorbidity present (HCC) This order has been released to its destination. To be filled at: [id number] [place] [address] - [address] [facility] [phone] [id number] Electronic PA rec'd and completed for ozempic. documented in this encounter [facility] 07-18-2024 Telephone encounter Note Left message for patient. Patient can check for copay cards. [facility] 07-18-2024 Telephone encounter Note They all cost about the same. [facility] 07-18-2024 Telephone encounter Note Patient updated that she would have to pay out of pocket for Ozempic, as her insurance does not cover it and only covers this drug when it is used for certain health conditions. Covered use is for type [address] Patient asking Dr[address] Bhagat if a lower cost alternative could be ordered for her? Bel Anderson RN [facility] 07-18-2024 Telephone encounter Note Left vm for patient to return call to nurse for provider's message. [facility] 07-18-2024 Telephone encounter Note Let her know she would have to pay out of pocket. [facility] 07-16-2024 Telephone encounter Note Why your request was denied: Your plan only covers this drug when it is used for certain health conditions. Covered use is for type 2 diabetes mellitus. Your plan does not cover the drug for your health condition that your doctor told us you have. We reviewed the information we had. Your request has been denied. [facility] 07-16-2024 Telephone encounter Note Images from the original note were not included. Note from payer: Your PA request has been denied. Additional information will be provided in the denial communication. (Message 1140) Payer: JOSE Obiren [phone] Electronic appeal: Not supported Appeal instructions: Your PA request has been denied. Additional information will be provided in the denial communication. (Message 1140) View History Notes Time User Attachment Attachment received from payer. 07/16/2024 10:38 AM [facility], Rx Priorauth In Document Medication Being Authorized semaglutide (OZEMPIC) 0.25 mg or 0.5 mg (2 mg/3 mL) pen Inject 0.5 mg subcutaneously one time a week for 28 days. After starting 0.25 for one week. Dispense: 3 mL Refills: 0 Start: 07/15/2024 End: 08/12/2024 Class: Normal Diagnoses: Class 3 severe obesity with body mass index (BMI) of 45.0 to 49.9 in adult, unspecified obesity type, unspecified whether serious comorbidity present (HCC) This order has been released to its destination. To be filled at: [id number] - [place] [address] - [address] [facility] [phone] [id number] [facility] 07-16-2024 History of Present illness Narrative Images from the original note were not included. [facility]necologic [facility] PATIENT NAME: Don Rodas DATE: 07/16/2024 Patient Name and verified: Yes Patient Location: [place] This Virtual Visit was completed using My Chart Zoom platform. I have communicated my name and active licensure. The patient's identity and physical location were verified at the time of this visit. Either the patient or their legal agency service representative has been informed of the risks and benefits of -- and alternatives to -- treatment through a remote evaluation and consents to proceed with the evaluation remotely. Chief Complaint CC/REASON FOR VISIT: Post Op History of Present Illness: Don is a 34 year old who presents for a post op Distance Health visit. SURGERY & DATE: 07/01/2024 Total Laparoscopic Hysterectomy, Bilateral Salpingectomy, Left Oophorectomy, Lysis of Adhesions, Excision of Endometriosis - deep peritoneal and cul-de-sac including retrocervical peritoneum and left uterosacral ligament nodule, Cystoscopy with Dr. Childs FINDINGS 1) Exam under anesthesia: Normal external female genitalia, normal appearing vaginal tissue without lesions or discharge, normal appearing cervix. 8 week size anteverted mobile uterus without palpable adnexal masses. 2) Laparoscopy: Anterior cul-de-sac- normal appearing Posterior cul-de-sac- partially obliterated due to sigmoid adhesions to left pelvic sidewall and tethering of rectum to posterior cervix Left ovarian fossa- obliterated due densely adherent left adnexa and sigmoid colon Right ovarian fossa- normal-appearing Uterosacral ligaments- normal-appearing right USL, left USL involved in left adnexal adhesions and with significant thickening and 2cm endometriotic nodule, dense adhesions between sigmoid colon and left uterosacral ligament Uterus- normal-appearing, posterior cervix with plaque like endometriosis, and left adnexa adherent to posterior uterus Ovaries and fallopian tubes- left ovary containing 4cm endometrioma, denseley adherent to ovarian fossa, posterior uterus and with sigmoid adhesions. Left fallopian tube adherent to ovary Normal appearing right ovary and fallopian tube Bowel and appendix- normal-appearing Diaphragmatic peritoneum- normal-appearing 3) Cystoscopy: bilateral ureters patent as indicated by strong jets of urine from bilateral ureteral ostia and intact bladder urothelium, normal urinary trigone COMPLICATIONS: None PRE-OP/PRE-PROCEDURE DIAGNOSIS: Endometriosis POST-OP/POST-PROCEDURE DIAGNOSIS: Same as preop PATHOLOGY: FINAL DIAGNOSIS A. Cervix, posterior, biopsy - Endometriosis B. Peritoneum, left uterosacral ligament, biopsy - Endometriosis C. Fallopian tube, right, salpingectomy - Histologically unremarkable fallopian tube D. Fallopian tube and ovary, left, salpingo-oophorectomy - Ovarian mucinous cystadenoma - Benign fallopian tube - Endometriosis and tubo-ovarian adhesions E. Uterus and cervix, hysterectomy - Histologically unremarkable cervix - Benign endometrial polyp - Proliferative endometrium SUBJECTIVE/INTERVAL HISTORY: Don Rodas reports that she feels well. No fever or chills. No shortness of breath, cough, or chest pain. No incisional redness, swelling, or drainage. Patient reports that her appetite is good. No abdominal pain, nausea, vomiting, diarrhea, or constipation. No dysuria, gross hematuria, urinary frequency, urinary urgency, or incontinence. She had a UTI - but completely resolved now Umbilical pain - manageable Reports she has cellulitis in left leg - is on medication Reports already resolved Started 07/09/2024 Rates post op pain as 3/10 on average the past few days. She is NOT taking OTC pain medications still. Does not take any ibuprofen or tylenol - stopped 1 week Last day taking narcotic pain medication? Never took it Vaginal bleeding? Did closer to [place] - none now, maybe occasional spotting here or there She is up and moving every 2 hours during the day Had questions: - Wants to know when she can restart ozempic - Wants to know what to do if she has vaginal bleeding after 6 weeks post op - Wants to know activity restrictions - Wants to know if she can do her [employer] class at gym - Needs letter to send to [employer] to go back to work today - she works from home, sits for work Past Medical History: PAST MEDICAL HISTORY Diagnosis Date Allergy 09/11/2013 Asthma (HCC) 09/27/2012 Excessive daytime sleepiness 08/16/2016 Fibrocystic breast disease in female 09/11/2013 Hyperlipidemia LDL goal <130 07/31/2014 Morbid obesity (HCC) Rosacea 09/27/2012 Vitamin D deficiency 08/04/2014 Family History: Family History Problem Relation Age of Onset Asthma Mother Hyperlipidemia Mother Osteoporosis Mother Diabetes Father Psoriasis Father Arthritis Father Diabetes Maternal Grandmother Heart Maternal Grandmother tachycardia Hypertension Maternal Grandmother None Maternal Grandfather Asthma Paternal Grandmother Stroke Paternal Grandmother Colon Cancer Maternal Uncle Past Surgical History: PAST SURGICAL HISTORY Procedure Laterality Date COLONOSCOPY SCREENING 11/28/2021 focal 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 EGD W/O BRSH SPEC VARICIES INJ 11/28/2021 Normal REMOVE TONSILS/ADENOIDS,12+ Y/O TONSILLECTOMY HX Social History: Social History Tobacco Use Smoking status: Never Smokeless tobacco: Never Vaping Use Vaping status: Never Used Substance Use Topics Alcohol use: No Drug use: No Allergies: ALLERGIES Allergen Reactions Shellfish Derived Anaphylaxis Keflex [Cephalexin] Rash Latex Rash Prevnar 20 (Pf) [Pn* Other: See Comments Allergies. Allergies updated: Yes Medications: Current Outpatient Medications Medication Sig semaglutide (OZEMPIC) 0.25 mg or 0.5 mg (2 mg/3 mL) pen Inject 0.5 mg subcutaneously one time a week for 28 days. After starting 0.25 for one week. semaglutide (OZEMPIC) 0.25 mg or 0.5 mg (2 mg/3 mL) pen Inject 0.5 mg subcutaneously one time a week. doxycycline hyclate (VIBRAMYCIN) 100 mg capsule Take 1 capsule by mouth two times a day for 10 days. ondansetron orally disintegrating (ZOFRAN ODT) 4 mg disintegrating tablet Take 1 tablet by mouth every 8 hours as needed for nausea/vomiting. ibuprofen (MOTRIN) 600 mg tablet Take 1 tablet by mouth every 6 hours as needed for pain. Take with food. docusate sodium (COLACE) 100 mg capsule Take 1 capsule by mouth two times a day. acetaminophen (TYLENOL EXTRA STRENGTH) 500 mg tablet Take 2 tablets by mouth every 6 hours as needed for pain. methocarbamol (ROBAXIN) 750 mg tablet Take 1 tablet by mouth three times a day as needed (pain/muscle spasm). Surgical Lubricant Jelly gel For MRI Female Pelvis, MRI department to provide. Administer intra-vaginal Surgilube immediately prior the MRI procedure (total amount to patient toleranace). albuterol HFA (PROVENTIL HFA, VENTOLIN HFA) 90 mcg/actuation inhaler Inhale 2 Puffs as instructed every 4 hours as needed for wheezing/shortness of breath. atorvastatin (LIPITOR) 20 mg tablet Take 1 tablet by mouth daily at bedtime. For cholesterol. nystatin (MYCOSTATIN) cream Apply 1 application to affected area two times a day. cyclobenzaprine (FLEXERIL) 10 mg tablet Take 1 tablet by mouth three times a day as needed for muscle spasm. fluticasone-vilanterol (BREO ELLIPTA) 200-25 mcg/dose inhaler Inhale 1 Inhalation as instructed once daily. Inhale one puff once daily. DO NOT CLICK OPEN UNTIL READY FOR DOSE EPINEPHrine (EPIPEN) 0.3 mg/0.3 mL auto-injector 0.3 ml subcutaneous as needed for severe allergic reaction/may substitute. albuterol (PROVENTIL) 2.5 mg /3 mL (0.083 %) nebulizer solution Use 3 mL via nebulizer every 6 hours as needed for wheezing/shortness of breath. Use over 5-15minutes. ergocalciferol 50,000 unit capsule (VITAMIN D2, DRISDOL) Take 1 capsule by mouth one time a week. multivitamin tablet Take 1 tablet by mouth once daily. ascorbic acid (RANDA-C ORAL) Take 2,000 mg by mouth once daily. Nebulizer 1 Each once daily. NEBULIZER FOR HOME USE. DX: asthma J 45.909 No current facility-administered medications for this visit. Medications reviewed in detail and updated PRN. Yes Physical Exam: LMP 06/01/2024 (Exact Date) GENERAL: pleasant, euthymic sounding female in no apparent distress Physical exam otherwise deferred Recent labs/Diagnostic studies: I have thoroughly reviewed this patients previous notes, encounters, labs, and results prior to this visit. Assessment and Plan Assessment & Plan Postoperative state S/P SHANDA (total abdominal hysterectomy) 06/2024 (age 34) for endometriosis with Dr. George Childs ([facility]) S/P left oophorectomy 06/2024 (age 34) for endometriosis with Dr. George Childs ([facility]) 1) Discussed results of pathology and implications with patient. 2) Postop restrictions and wound care reviewed. 3) All questions answered to patient satisfaction 4) Wants letter to go back to work today - supposed to start working at 2pm. 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 Messaged [employer] 5) Requests post op instructions sent to her via message - she misplaced these. message sent. 6) Keep follow up with Dr. Childs on 08/14/2024. Appointments for Next 60 Days Date Time Provider Location Dept Phone 07/16/2024 10:00 AM SARINA STEWART [phone] 08/13/2024 9:20 AM MISTY WILLAMS [facility] [phone] 08[facility]14[facility]2024 11[facility] [phone] 08/19/2024 8:00 AM DIAGNOSTIC MAMMO [facility] [place] [phone] 08/19/2024 8:30 AM US [facility] M[facility] [address] [place] [phone] SIGNATURE: Sarina Stewart APRN.MARIO documented in this encounter [facility] 07-16-2024 Note HNO ID: [id number] Author: SARINA STEWART APRN.MARIO Service: ? Author Type: Nurse Practitioner Type: Progress Notes Filed: 07/16/2024 10:11 Note Text: [facility] In[facility] Gynecologic [facility] PATIENT NAME: Don Rodas DATE: 07/16/2024 Patient Name and verified: Yes Patient Location: [place] This Virtual Visit was completed using My Chart Zoom platform. I have communicated my name and active licensure. The patient's identity and physical location were verified at the time of this visit. Either the patient or their legal agency service representative has been informed of the risks and benefits of -- and alternatives to -- treatment through a remote evaluation and consents to proceed with the evaluation remotely. Chief Complaint CC/REASON FOR VISIT: Post Op History of Present Illness: Don is a 34 year old who presents for a post op Distance Health visit. SURGERY AND DATE: 07/01/2024 Total Laparoscopic Hysterectomy, Bilateral Salpingectomy, Left Oophorectomy, Lysis of Adhesions, Excision of Endometriosis - deep peritoneal and cul-de-sac including retrocervical peritoneum and left uterosacral ligament nodule, Cystoscopy with Dr. Childs FINDINGS 1) Exam under anesthesia: Normal external female genitalia, normal appearing vaginal tissue without lesions or discharge, normal appearing cervix. 8 week size anteverted mobile uterus without palpable adnexal masses. 2) Laparoscopy: Anterior cul-de-sac- normal appearing Posterior cul-de-sac- partially obliterated due to sigmoid adhesions to left pelvic sidewall and tethering of rectum to posterior cervix Left ovarian fossa- obliterated due densely adherent left adnexa and sigmoid colon Right ovarian fossa- normal-appearing Uterosacral ligaments- normal-appearing right USL, left USL involved in left adnexal adhesions and with significant thickening and 2cm endometriotic nodule, dense adhesions between sigmoid colon and left uterosacral ligament Uterus- normal-appearing, posterior cervix with plaque like endometriosis, and left adnexa adherent to posterior uterus Ovaries and fallopian tubes- left ovary containing 4cm endometrioma, denseley adherent to ovarian fossa, posterior uterus and with sigmoid adhesions. Left fallopian tube adherent to ovary Normal appearing right ovary and fallopian tube Bowel and appendix- normal-appearing Diaphragmatic peritoneum- normal-appearing 3) Cystoscopy: bilateral ureters patent as indicated by strong jets of urine from bilateral ureteral ostia and intact bladder urothelium, normal urinary trigone COMPLICATIONS: None PRE-OP/PRE-PROCEDURE DIAGNOSIS: Endometriosis POST-OP/POST-PROCEDURE DIAGNOSIS: Same as preop PATHOLOGY: FINAL DIAGNOSIS A. Cervix, posterior, biopsy - Endometriosis B. Peritoneum, left uterosacral ligament, biopsy - Endometriosis C. Fallopian tube, right, salpingectomy - Histologically unremarkable fallopian tube D. Fallopian tube and ovary, left, salpingo-oophorectomy - Ovarian mucinous cystadenoma - Benign fallopian tube - Endometriosis and tubo-ovarian adhesions E. Uterus and cervix, hysterectomy - Histologically unremarkable cervix - Benign endometrial polyp - Proliferative endometrium SUBJECTIVE/INTERVAL HISTORY: Don Rodas reports that she feels well. No fever or chills. No shortness of breath, cough, or chest pain. No incisional redness, swelling, or drainage. Patient reports that her appetite is good. No abdominal pain, nausea, vomiting, diarrhea, or constipation. No dysuria, gross hematuria, urinary frequency, urinary urgency, or incontinence. She had a UTI - but completely resolved now Umbilical pain - manageable Reports she has cellulitis in left leg - is on medication Reports already resolved Started 07/09/2024 Rates post op pain as 3/10 on average the past few days. She is NOT taking OTC pain medications still. Does not take any ibuprofen or tylenol - stopped 1 week Last day taking narcotic pain medication? Never took it Vaginal bleeding? [place] closer to [place] - none now, maybe occasional spotting here or there She is up and moving every 2 hours during the day Had questions: - Wants to know when she can restart ozempic - Wants to know what to do if she has vaginal bleeding after 6 weeks post op - Wants to know activity restrictions - Wants to know if she can do her [employer] class at gym - Needs letter to send to [employer] to go back to work today - she works from home, sits for work Past Medical History: PAST MEDICAL HISTORY Diagnosis Date Allergy 09/11/2013 Asthma (HCC) 09/27/2012 Excessive daytime sleepiness 08/16/2016 Fibrocystic breast disease in female 09/11/2013 Hyperlipidemia LDL goal <130 07/31/2014 Morbid obesity (HCC) Rosacea 09/27/2012 Vitamin D deficiency 08/04/2014 Family History: Family History Problem Relation Ag (more content not included)... [facility] 07-16-2024 Telephone encounter Note Electronic PA rec'd and completed for ozempic. [facility] 07-15-2024 Note HNO ID: [id number] Author: ARIANA BHAGAT MD Service: ? Author Type: Physician Type: Progress Notes Filed: 07/15/2024 17:40 Note Text: Don Rodas is a 34-year-old female with a history of obesity, presenting for weight management HPI Obesity: - Recent weight gain following laparoscopic hysterectomy on 07/01/2024. - Diagnosed with endometriosis and ovarian mucinous cystadenoma during surgery. - Previously on Ozempic, switched to Zepbound with less effective results. - Off weight management medications for approximately one month. - Current weight: 253 lbs; pre-surgery weight: 245 lbs; lowest weight achieved: 225 lbs. - No side effects from previous medications. - Denies chest pain or dyspnea. - One ovary (right) was left intact during surgery. Bilateral Breast Pain: - Pateint requests mammogram. Discussed that it is not normal to do annual mammograms at this age and discussed radation risks etc. - Don reports bilateral breast discomfort after discussion. - History of fibrocystic breast disease. - Last mammogram in February 2023. - Denies excessive caffeine intake. MEDICATIONS: Current Outpatient Medications Medication Sig semaglutide (OZEMPIC) 0.25 mg or 0.5 mg (2 mg/3 mL) pen Inject 0.5 mg subcutaneously one time a week for 28 days. After starting 0.25 for one week. semaglutide (OZEMPIC) 0.25 mg or 0.5 mg (2 mg/3 mL) pen Inject 0.5 mg subcutaneously one time a week. doxycycline hyclate (VIBRAMYCIN) 100 mg capsule Take 1 capsule by mouth two times a day for 10 days. ondansetron orally disintegrating (ZOFRAN ODT) 4 mg disintegrating tablet Take 1 tablet by mouth every 8 hours as needed for nausea/vomiting. ibuprofen (MOTRIN) 600 mg tablet Take 1 tablet by mouth every 6 hours as needed for pain. Take with food. docusate sodium (COLACE) 100 mg capsule Take 1 capsule by mouth two times a day. acetaminophen (TYLENOL EXTRA STRENGTH) 500 mg tablet Take 2 tablets by mouth every 6 hours as needed for pain. methocarbamol (ROBAXIN) 750 mg tablet Take 1 tablet by mouth three times a day as needed (pain/muscle spasm). Surgical Lubricant Jelly gel For MRI Female Pelvis, MRI department to provide. Administer intra-vaginal Surgilube immediately prior the MRI procedure (total amount to patient toleranace). albuterol HFA (PROVENTIL HFA, VENTOLIN HFA) 90 mcg/actuation inhaler Inhale 2 Puffs as instructed every 4 hours as needed for wheezing/shortness of breath. atorvastatin (LIPITOR) 20 mg tablet Take 1 tablet by mouth daily at bedtime. For cholesterol. nystatin (MYCOSTATIN) cream Apply 1 application to affected area two times a day. cyclobenzaprine (FLEXERIL) 10 mg tablet Take 1 tablet by mouth three times a day as needed for muscle spasm. fluticasone-vilanterol (BREO ELLIPTA) 200-25 mcg/dose inhaler Inhale 1 Inhalation as instructed once daily. Inhale one puff once daily. DO NOT CLICK OPEN UNTIL READY FOR DOSE EPINEPHrine (EPIPEN) 0.3 mg/0.3 mL auto-injector 0.3 ml subcutaneous as needed for severe allergic reaction/may substitute. albuterol (PROVENTIL) 2.5 mg /3 mL (0.083 %) nebulizer solution Use 3 mL via nebulizer every 6 hours as needed for wheezing/shortness of breath. Use over 5-15minutes. ergocalciferol 50,000 unit capsule (VITAMIN D2, DRISDOL) Take 1 capsule by mouth one time a week. multivitamin tablet Take 1 tablet by mouth once daily. ascorbic acid (RANDA-C ORAL) Take 2,000 mg by mouth once daily. Nebulizer 1 Each once daily. NEBULIZER FOR HOME USE. DX: asthma J 45.798 No current facility-administered medications for this visit. ALLERGIES: ALLERGIES Allergen Reactions Shellfish Derived Anaphylaxis Keflex [Cephalexin] Rash Latex Rash Prevnar 20 (Pf) [Pn* Other: See Comments Allergies. PAST MEDICAL HISTORY Diagnosis Date Allergy 09/11/2013 Asthma (HCC) 09/27/2012 Excessive daytime sleepiness 08/16/2016 Fibrocystic breast disease in female 09/11/2013 Hyperlipidemia LDL goal <130 07/31/2014 Morbid obesity (HCC) Rosacea 09/27/2012 Vitamin D deficiency 08/04/2014 PAST SURGICAL HISTORY Procedure Laterality Date COLONOSCOPY SCREENING 11/28/2021 focal 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 EGD W/O BRSH SPEC VARICIES INJ 11/28/2021 Normal REMOVE TONSILS/ADENOIDS,12+ Y/O TONSILLECTOMY HX FAMILY HISTORY Problem Relation Age of Onset Asthma Mother Hyperlipidemia Mother Osteoporosis Mother Diabetes Father Psoriasis Father Arthritis Father Diabetes Maternal Grandmother Heart Maternal Grandmother tachycardia Hypertension Maternal Grandmother None Maternal Grandfather Asthma Paternal Grandmother Stroke Paternal Grandmother Colon Cancer Maternal Uncle Social History Tobacco Use Smoking status: Never Smokeless tobacco: Never Vaping Use Vaping status: Never Used Substance Use Topics Alcohol use: No Drug use: No Reviewed current medications, allergies, past medical history, surgical hi (more content not included)... [facility] 07-15-2024 History of Present illness Narrative Don Rodas is a 34-year-old female with a history of obesity, presenting for weight management HPI Obesity: - Recent weight gain following laparoscopic hysterectomy on 07/01/2024. - Diagnosed with endometriosis and ovarian mucinous cystadenoma during surgery. - Previously on Ozempic, switched to Zepbound with less effective results. - Off weight management medications for approximately one month. - Current weight: 253 lbs; pre-surgery weight: 245 lbs; lowest weight achieved: 225 lbs. - No side effects from previous medications. - Denies chest pain or dyspnea. - One ovary (right) was left intact during surgery. Bilateral Breast Pain: - Pateint requests mammogram. Discussed that it is not normal to do annual mammograms at this age and discussed radation risks etc. - Don reports bilateral breast discomfort after discussion. - History of fibrocystic breast disease. - Last mammogram in February 2023. - Denies excessive caffeine intake. MEDICATIONS: Current Outpatient Medications Medication Sig semaglutide (OZEMPIC) 0.25 mg or 0.5 mg (2 mg/3 mL) pen Inject 0.5 mg subcutaneously one time a week for 28 days. After starting 0.25 for one week. semaglutide (OZEMPIC) 0.25 mg or 0.5 mg (2 mg/3 mL) pen Inject 0.5 mg subcutaneously one time a week. doxycycline hyclate (VIBRAMYCIN) 100 mg capsule Take 1 capsule by mouth two times a day for 10 days. ondansetron orally disintegrating (ZOFRAN ODT) 4 mg disintegrating tablet Take 1 tablet by mouth every 8 hours as needed for nausea/vomiting. ibuprofen (MOTRIN) 600 mg tablet Take 1 tablet by mouth every 6 hours as needed for pain. Take with food. docusate sodium (COLACE) 100 mg capsule Take 1 capsule by mouth two times a day. acetaminophen (TYLENOL EXTRA STRENGTH) 500 mg tablet Take 2 tablets by mouth every 6 hours as needed for pain. methocarbamol (ROBAXIN) 750 mg tablet Take 1 tablet by mouth three times a day as needed (pain/muscle spasm). Surgical Lubricant Jelly gel For MRI Female Pelvis, MRI department to provide. Administer intra-vaginal Surgilube immediately prior the MRI procedure (total amount to patient toleranace). albuterol HFA (PROVENTIL HFA, VENTOLIN HFA) 90 mcg/actuation inhaler Inhale 2 Puffs as instructed every 4 hours as needed for wheezing/shortness of breath. atorvastatin (LIPITOR) 20 mg tablet Take 1 tablet by mouth daily at bedtime. For cholesterol. nystatin (MYCOSTATIN) cream Apply 1 application to affected area two times a day. cyclobenzaprine (FLEXERIL) 10 mg tablet Take 1 tablet by mouth three times a day as needed for muscle spasm. fluticasone-vilanterol (BREO ELLIPTA) 200-25 mcg/dose inhaler Inhale 1 Inhalation as instructed once daily. Inhale one puff once daily. DO NOT CLICK OPEN UNTIL READY FOR DOSE EPINEPHrine (EPIPEN) 0.3 mg/0.3 mL auto-injector 0.3 ml subcutaneous as needed for severe allergic reaction/may substitute. albuterol (PROVENTIL) 2.5 mg /3 mL (0.083 %) nebulizer solution Use 3 mL via nebulizer every 6 hours as needed for wheezing/shortness of breath. Use over 5-15minutes. ergocalciferol 50,000 unit capsule (VITAMIN D2, DRISDOL) Take 1 capsule by mouth one time a week. multivitamin tablet Take 1 tablet by mouth once daily. ascorbic acid (RANDA-C ORAL) Take 2,000 mg by mouth once daily. Nebulizer 1 Each once daily. NEBULIZER FOR HOME USE. DX: asthma J 45.140 No current facility-administered medications for this visit. ALLERGIES: ALLERGIES Allergen Reactions Shellfish Derived Anaphylaxis Keflex [Cephalexin] Rash Latex Rash Prevnar 20 (Pf) [Pn* Other: See Comments Allergies. PAST MEDICAL HISTORY Diagnosis Date Allergy 09/11/2013 Asthma (HCC) 09/27/2012 Excessive daytime sleepiness 08/16/2016 Fibrocystic breast disease in female 09/11/2013 Hyperlipidemia LDL goal <130 07/31/2014 Morbid obesity (HCC) Rosacea 09/27/2012 Vitamin D deficiency 08/04/2014 PAST SURGICAL HISTORY Procedure Laterality Date COLONOSCOPY SCREENING 11/28/2021 focal 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 EGD W/O BRSH SPEC VARICIES INJ 11/28/2021 Normal REMOVE TONSILS/ADENOIDS,12+ Y/O TONSILLECTOMY HX FAMILY HISTORY Problem Relation Age of Onset Asthma Mother Hyperlipidemia Mother Osteoporosis Mother Diabetes Father Psoriasis Father Arthritis Father Diabetes Maternal Grandmother Heart Maternal Grandmother tachycardia Hypertension Maternal Grandmother None Maternal Grandfather Asthma Paternal Grandmother Stroke Paternal Grandmother Colon Cancer Maternal Uncle Social History Tobacco Use Smoking status: Never Smokeless tobacco: Never Vaping Use Vaping status: Never Used Substance Use Topics Alcohol use: No Drug use: No Reviewed current medications, allergies, past medical history, surgical history, family history and social history today. REVIEW OF SYSTEMS Constitutional: (+) weight gain, (-) fever, (-) chills Breast: (+) bilateral breast pain Cardiovascular: (-) chest pain Respiratory: (-) shortness of breath Gastrointestinal: (+) nausea, (-) vomiting HEALTH MAINTENANCE: Reviewed health maintenance issues today and recommended the following in detail. There are no preventive care reminders to display for this patient. LAB REVIEWED: Labs: Imaging: (02/2023) Mammogram: No results mentioned in transcript Tests: (07/01) Surgical Pathology: - Endometriosis - Ovarian mucinous cyst adenoma (benign) VITALS: BP 110/64 Pulse 70 Wt 114.8 kg (253 lb) LMP 06/01/2024 (Exact Date) SpO2 100% BMI 46.27 kg/m Last 4 Encounter Wt Readings: Date: Wt: 07/15/2024 114.8 kg (253 lb) 07/14/2024 115.7 kg (255 lb) 07/10/2024 115.2 kg (254 lb) 06/19/2024 111.5 kg (245 lb 12.8 oz) PHYSICAL EXAMINATION: GENERAL: NAD, alert and oriented. SKIN: Unremarkable, no rash or skin lesions. LUNGS: Clear to auscultation bilaterally, no wheezes/rhonchi/rales. HEART: Regular rate and rhythm, no murmurs. No ectopy. BREASTS: Bilateral breast discomfort reported. ABDOMEN: Soft, non-tender. Bowel sounds present. Incisions healing well. EXTREMITIES: Normal, no deformities, no skin discoloration, no edema. NEURO: Awake, alert and oriented x3, cranial nerves II-XII grossly intact, normal gait, no involuntary motions. ASSESSMENT AND PLAN 1. Class 3 severe obesity with body mass index (BMI) of 45.0 to 49.9 in adult, unspecified obesity type, unspecified whether serious comorbidity present ([facility]) (E66.813) - Weight increased from 245 lbs pre-surgery to 253 lbs post-surgery; lowest recorded weight was 225 lbs while on medication. - Previously managed with Ozempic, discontinued for approximately one month. - No adverse effects reported from prior Ozempic use. - Initiated Ozempic at 0.25 mg for one week, followed by an increase to 0.5 mg. - Discussed importance of dietary management to enhance medication efficacy. - Follow-up in one month to assess weight management progress. 2. Breast pain (N64.4) - Bilateral breast discomfort noted; history of fibrocystic breast changes. - Last mammogram performed in February 2023. - Ordered mammogram to evaluate current breast pain. - Advised on potential impact of caffeine on fibrocystic breast disease. 3. Endometriosis (N80.9) - Diagnosed during laparoscopic hysterectomy on 07/01. - Educated on endometriosis as ectopic endometrial tissue implantation. - Incisions healing well; abdomen soft, non-tender, with positive bowel sounds. - No current symptoms of nausea, vomiting, fever, or chills. - Monitor for any recurrent symptoms or complications. (See patient after visit summary for additional instructions to patient) Ariana Bhagat MD Recording using Pipewise software for draft documentation of the visit was discussed with the patient/authorized agency service representative; all questions welcomed and answered. Patient/authorized agency service representative agreed to proceed documented in this encounter [facility] 07-15-2024 Telephone encounter Note Called Patient. Verified name and . Patient now has appointment tomorrow with Sarina. Patient advised to ask all questions at this appointment Leona Keen RN [facility] 07-15-2024 Miscellaneous Notes Called Patient. Verified name and . Patient now has appointment tomorrow with Sarina. Patient advised to ask all questions at this appointment Leona Keen RN She did not sign into her 2 week post op visit with me today. She needs to be seen and all these questions can be answered. It looks like the first available opening is Next Friday 07/21 at 1500 with Celsa James. Gerri Masterson APRN.MARIO Called Patient. Verified name and . Patient 2 weeks Post Op Patient would like to know if she can go back to work because she works from home, Patient would also like to know if she can resume her Ozempic Patient wants to know If she could go back to gym This nurse reviewed some of the Pre-Op education that patient was given and advised patient to discuss returning to the gym at her Post-Op appointment Nurse advises patient to review Pre-Op education Patient needs a return to work letter if patient can return to work FYI: patient missed Post Op VV today and rescheduled for 07/23 /Leona Keen RN Surgery with Dr. Childs on 07/01 Total Laparoscopic Hysterectomy, Bilateral Salpingectomy Left Oophorectomy Lysis of Adhesions Excision of Endometriosis - deep peritoneal and cul-de-sac including retrocervical peritoneum and left uterosacral ligament nodule Cystoscopy Patient called and I rescheduled patient for 07/23/24 at 8:30 am Video . Patient has many question and would like someone to call her Please and Thank you documented in this encounter [facility] 07-15-2024 Telephone encounter Note She did not sign into her 2 week post op visit with me today. She needs to be seen and all these questions can be answered. It looks like the first available opening is Next Friday 07/21 at 1500 with Celsa James. Gerri Masterson APRN.CNP [facility] Work Phone: 07-15-2024 Telephone encounter Note Called Patient. Verified name and . Patient 2 weeks Post Op Patient would like to know if she can go back to work because she works from home, Patient would also like to know if she can resume her Ozempic Patient wants to know If she could go back to gym This nurse reviewed some of the Pre-Op education that patient was given and advised patient to discuss returning to the gym at her Post-Op appointment Nurse advises patient to review Pre-Op education Patient needs a return to work letter if patient can return to work FYI: patient missed Post Op VV today and rescheduled for 07/23 /Leona Keen RN Surgery with Dr. Childs on 07/01 Total Laparoscopic Hysterectomy, Bilateral Salpingectomy Left Oophorectomy Lysis of Adhesions Excision of Endometriosis - deep peritoneal and cul-de-sac including retrocervical peritoneum and left uterosacral ligament nodule Cystoscopy [facility] 07-15-2024 Telephone encounter Note Patient called and I rescheduled patient for 07/23/24 at 8:30 am Video . Patient has many question and would like someone to call her Please and Thank you [facility] 07-15-2024 Telephone encounter Note Called Patient. Verified name and . Patient states that she never had got a call for her visit today. This nurse informed patient that she was supposed to log in via VIOlife because it was a video visit. Patient verbalized understanding. Patient transferred to appointment line to reschedule visit Leona Keen RN [facility] 07-15-2024 Miscellaneous Notes Called Patient. Verified name and . Patient states that she never had got a call for her visit today. This nurse informed patient that she was supposed to log in via Flock[employer] because it was a video visit. Patient verbalized understanding. Patient transferred to appointment line to reschedule visit Leona Keen RN Patient called and ask why no one called for her video 2 weeks post op. Patient would like someone to call her. Yelitza has been waiting all day for this video chat, it was to be a 9:30 am. documented in this encounter [facility] 07-15-2024 Telephone encounter Note Patient called and ask why no one called for her video 2 weeks post op. Patient would like someone to call her. Yelitza has been waiting all day for this video chat, it was to be a 9:30 am. [facility] 07-14-2024 Note HNO ID: [id number] Author: LENA LLANOS APRN.[employer]INE[employer] Service: ? Author Type: Nurse Practitioner Type: Progress Notes Filed: 07/14/2024 09:20 Note Text: Chief Complaint Patient presents with: Recheck: Cellulitis follow up HPI Don Rodas is a 34 year old female who presents here today for Above Complaints. Concerns today... I saw patient on 07/10 and dx with cellulitis of L inner thigh. Gave doxycycline BID x 10 days. Following up today to reassess.... Pt reports: Swelling, redness, and warmth completely gone. Still taking antibiotic as prescribed. Asking me to look at incision sites of recent laparoscopic hysterectomy. Pt reports sites are itchy and feel like they are pulling sometimes when I stand up. Past medical history, appointments, medications, allergies reviewed. 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 EGD W/O BRSH SPEC VARICIES INJ 11/28/2021 Normal REMOVE TONSILS/ADENOIDS,12+ Y/O TONSILLECTOMY HX Family History FAMILY HISTORY Problem Relation Age of Onset Asthma Mother Hyperlipidemia Mother Osteoporosis Mother Diabetes Father Psoriasis Father Arthritis Father Diabetes Maternal Grandmother Heart Maternal Grandmother tachycardia Hypertension Maternal Grandmother None Maternal Grandfather Asthma Paternal Grandmother Stroke Paternal Grandmother Colon Cancer Maternal Uncle Patient Allergies ALLERGIES Allergen Reactions Shellfish Derived Anaphylaxis Keflex [Cephalexin] Rash Latex Rash Prevnar 20 (Pf) [Pn* Other: See Comments Allergies. Current Medications Current Outpatient Medications on File Prior to Visit Medication Sig doxycycline hyclate (VIBRAMYCIN) 100 mg capsule Take 1 capsule by mouth two times a day for 10 days. ondansetron orally disintegrating (ZOFRAN ODT) 4 mg disintegrating tablet Take 1 tablet by mouth every 8 hours as needed for nausea/vomiting. ibuprofen (MOTRIN) 600 mg tablet Take 1 tablet by mouth every 6 hours as needed for pain. Take with food. docusate sodium (COLACE) 100 mg capsule Take 1 capsule by mouth two times a day. acetaminophen (TYLENOL EXTRA STRENGTH) 500 mg tablet Take 2 tablets by mouth every 6 hours as needed for pain. methocarbamol (ROBAXIN) 750 mg tablet Take 1 tablet by mouth three times a day as needed (pain/muscle spasm). Surgical Lubricant Jelly gel For MRI Female Pelvis, MRI department to provide. Administer intra-vaginal Surgilube immediately prior the MRI procedure (total amount to patient toleranace). albuterol HFA (PROVENTIL HFA, VENTOLIN HFA) 90 mcg/actuation inhaler Inhale 2 Puffs as instructed every 4 hours as needed for wheezing/shortness of breath. atorvastatin (LIPITOR) 20 mg tablet Take 1 tablet by mouth daily at bedtime. For cholesterol. nystatin (MYCOSTATIN) cream Apply 1 application to affected area two times a day. cyclobenzaprine (FLEXERIL) 10 mg tablet Take 1 tablet by mouth three times a day as needed for muscle spasm. fluticasone-vilanterol (BREO ELLIPTA) 200-25 mcg/dose inhaler Inhale 1 Inhalation as instructed once daily. Inhale one puff once daily. DO NOT CLICK OPEN UNTIL READY FOR DOSE EPINEPHrine (EPIPEN) 0.3 mg/0.3 mL auto-injector 0.3 ml subcutaneous as needed for severe allergic reaction/may substitute. albuterol (PROVENTIL) 2.5 mg /3 mL (0.083 %) nebulizer solution Use 3 mL via nebulizer every 6 hours as needed for wheezing/shortness of breath. Use over 5-15minutes. ergocalciferol 50,000 unit capsule (VITAMIN D2, DRISDOL) Take 1 capsule by mouth one time a week. multivitamin tablet Take 1 tablet by mouth once daily. ascorbic acid (RANDA-C ORAL) Take 2,000 mg by mouth once daily. Nebulizer 1 Each once daily. NEBULIZER FOR HOME USE. DX: asthma J 45.909 No current facility-administered medications on file prior to visit. Social History Social History Tobacco Use Smoking status: Never Smokeless tobacco: Never Vaping Use Vaping status: Never Used Substance Use Topics Alcohol use: No Drug use: No REVIEW OF SYSTEMS: as above Reviewed relevant PMHx, PSHx, Social Hx, current medications and allergies. Review of Symptoms REVIEW OF SYSTEMS See HPI. EXAM: BP 108/72 Pulse 78 Resp 16 Wt 115.7 kg (255 lb) LMP 06/01/2024 (Exact Date) SpO2 98% BMI 46.64 kg/m? General Appearance: Well appearing, alert, in no acute distress, well-hydrated, well nourished.. Skin: Skin color, texture, turgor normal, no suspicious rashes or lesions. Cellulitis symptoms completely resolved to L t (more content not included)... [facility] 07-14-2024 History of Present illness Narrative Chief Complaint Patient presents with: Recheck: Cellulitis follow up HPI Don Rodas is a 34 year old female who presents here today for Above Complaints. Concerns today... I saw patient on 07/10 and dx with cellulitis of L inner thigh. Gave doxycycline BID x 10 days. Following up today to reassess.... Pt reports: Swelling, redness, and warmth completely gone. Still taking antibiotic as prescribed. Asking me to look at incision sites of recent laparoscopic hysterectomy. Pt reports sites are itchy and feel like they are pulling sometimes when I stand up. Past medical history, appointments, medications, allergies reviewed. 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 EGD W/O BRSH SPEC VARICIES INJ 11/28/2021 Normal REMOVE TONSILS/ADENOIDS,12+ Y/O TONSILLECTOMY HX Family History FAMILY HISTORY Problem Relation Age of Onset Asthma Mother Hyperlipidemia Mother Osteoporosis Mother Diabetes Father Psoriasis Father Arthritis Father Diabetes Maternal Grandmother Heart Maternal Grandmother tachycardia Hypertension Maternal Grandmother None Maternal Grandfather Asthma Paternal Grandmother Stroke Paternal Grandmother Colon Cancer Maternal Uncle Patient Allergies ALLERGIES Allergen Reactions Shellfish Derived Anaphylaxis Keflex [Cephalexin] Rash Latex Rash Prevnar 20 (Pf) [Pn* Other: See Comments Allergies. Current Medications Current Outpatient Medications on File Prior to Visit Medication Sig doxycycline hyclate (VIBRAMYCIN) 100 mg capsule Take 1 capsule by mouth two times a day for 10 days. ondansetron orally disintegrating (ZOFRAN ODT) 4 mg disintegrating tablet Take 1 tablet by mouth every 8 hours as needed for nausea/vomiting. ibuprofen (MOTRIN) 600 mg tablet Take 1 tablet by mouth every 6 hours as needed for pain. Take with food. docusate sodium (COLACE) 100 mg capsule Take 1 capsule by mouth two times a day. acetaminophen (TYLENOL EXTRA STRENGTH) 500 mg tablet Take 2 tablets by mouth every 6 hours as needed for pain. methocarbamol (ROBAXIN) 750 mg tablet Take 1 tablet by mouth three times a day as needed (pain/muscle spasm). Surgical Lubricant Jelly gel For MRI Female Pelvis, MRI department to provide. Administer intra-vaginal Surgilube immediately prior the MRI procedure (total amount to patient toleranace). albuterol HFA (PROVENTIL HFA, VENTOLIN HFA) 90 mcg/actuation inhaler Inhale 2 Puffs as instructed every 4 hours as needed for wheezing/shortness of breath. atorvastatin (LIPITOR) 20 mg tablet Take 1 tablet by mouth daily at bedtime. For cholesterol. nystatin (MYCOSTATIN) cream Apply 1 application to affected area two times a day. cyclobenzaprine (FLEXERIL) 10 mg tablet Take 1 tablet by mouth three times a day as needed for muscle spasm. fluticasone-vilanterol (BREO ELLIPTA) 200-25 mcg/dose inhaler Inhale 1 Inhalation as instructed once daily. Inhale one puff once daily. DO NOT CLICK OPEN UNTIL READY FOR DOSE EPINEPHrine (EPIPEN) 0.3 mg/0.3 mL auto-injector 0.3 ml subcutaneous as needed for severe allergic reaction/may substitute. albuterol (PROVENTIL) 2.5 mg /3 mL (0.083 %) nebulizer solution Use 3 mL via nebulizer every 6 hours as needed for wheezing/shortness of breath. Use over 5-15minutes. ergocalciferol 50,000 unit capsule (VITAMIN D2, DRISDOL) Take 1 capsule by mouth one time a week. multivitamin tablet Take 1 tablet by mouth once daily. ascorbic acid (RANDA-C ORAL) Take 2,000 mg by mouth once daily. Nebulizer 1 Each once daily. NEBULIZER FOR HOME USE. DX: asthma J 45.909 No current facility-administered medications on file prior to visit. Social History Social History Tobacco Use Smoking status: Never Smokeless tobacco: Never Vaping Use Vaping status: Never Used Substance Use Topics Alcohol use: No Drug use: No REVIEW OF SYSTEMS: as above Reviewed relevant PMHx, PSHx, Social Hx, current medications and allergies. Review of Symptoms REVIEW OF SYSTEMS See HPI. EXAM: BP 108/72 Pulse 78 Resp 16 Wt 115.7 kg (255 lb) LMP 06/01/2024 (Exact Date) SpO2 98% BMI 46.64 kg/m General Appearance: Well appearing, alert, in no acute distress, well-hydrated, well nourished.. Skin: Skin color, texture, turgor normal, no suspicious rashes or lesions. Cellulitis symptoms completely resolved to L thigh. Laparoscopic incision sites healing appropriately with no dehiscence. Sites are scabbed over. Head: Normocephalic, no masses, lesions, tenderness or abnormalities. Lungs: Lungs clear to auscultation. No wheezing, rhonchi, rales.. Heart: RRR without murmur, gallop, or rubs. No ectopy. Abdomen: Normal abdominal exam, Abdomen soft, non-tender. Bowel sounds normal. No masses, organomegaly. Health Maintenance List Depression Screening due on 12/21/2024 Anxiety Screening due on 12/21/2024 Annual PCP Team Chronic Disease Visit due on 07/10/2025 Cervical Cancer Screening due on 01/19/2027 DTaP,Tdap,Td Vaccine(3 - Td or Tdap) due on 08/07/2028 Influenza Vaccine Completed Hepatitis C Screening Completed HIV Screening Completed Covid-19 Vaccine Completed Hepatitis B Vaccine Discontinued ASSESSMENT/PLAN: 1. Cellulitis of left leg - ICD9: 682.6, ICD10: L03.116 (primary diagnosis) Improved/resolved. Complete entire antibiotic as prescribed. 2. Status post hysterectomy - ICD9: V88.01, ICD10: Z90.710 Incision sites are healing appropriately with no concerns for infection or dehiscence. Prescription instructions reviewed with patient as applicable. Potential red flag symptoms discussed with the patient. Reviewed appropriate action plan to take if red flag symptoms occur. Patient agreeable to treatment plan. Lena Llanos APRN.CNP [address] [place] [address] documented in this encounter [facility] 07-10-2024 Note HNO ID: [id number] Author: LENA LLANOS APRN.MARIO Service: ? Author Type: Nurse Practitioner Type: Progress Notes Filed: 07/10/2024 14:30 Note Text: 07/10/2024 Recording using Pipewise software for draft documentation of the visit was discussed with the patient/authorized agency service representative; all questions welcomed and answered. Patient/authorized agency service representative agreed to proceed HPI: Don is a 34-year-old female presenting with acute onset of erythema and warmth on the leg LLE Erythema and Warmth: - Noticed erythema and warmth on the L thigh this morning. - Outlined the affected area one hour ago; reports swelling and redness. - Denies known trauma or injury to the area. - Denies fever - Recent partial hysterectomy on the , healing well. - Completed a 3-day course of Bactrim for a UTI, with the last dose taken at 1300 today. - Allergic to Keflex. No other concerns or complaints today. 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 EGD W/O BRSH SPEC VARICIES INJ 11/28/2021 Normal REMOVE TONSILS/ADENOIDS,12+ Y/O TONSILLECTOMY HX Family History FAMILY HISTORY Problem Relation Age of Onset Asthma Mother Hyperlipidemia Mother Osteoporosis Mother Diabetes Father Psoriasis Father Arthritis Father Diabetes Maternal Grandmother Heart Maternal Grandmother tachycardia Hypertension Maternal Grandmother None Maternal Grandfather Asthma Paternal Grandmother Stroke Paternal Grandmother Colon Cancer Maternal Uncle Patient Allergies ALLERGIES Allergen Reactions Shellfish Derived Anaphylaxis Keflex [Cephalexin] Rash Latex Rash Prevnar 20 (Pf) [Pn* Other: See Comments Allergies. Current Medications Current Outpatient Medications on File Prior to Visit Medication Sig ondansetron orally disintegrating (ZOFRAN ODT) 4 mg disintegrating tablet Take 1 tablet by mouth every 8 hours as needed for nausea/vomiting. ibuprofen (MOTRIN) 600 mg tablet Take 1 tablet by mouth every 6 hours as needed for pain. Take with food. docusate sodium (COLACE) 100 mg capsule Take 1 capsule by mouth two times a day. acetaminophen (TYLENOL EXTRA STRENGTH) 500 mg tablet Take 2 tablets by mouth every 6 hours as needed for pain. methocarbamol (ROBAXIN) 750 mg tablet Take 1 tablet by mouth three times a day as needed (pain/muscle spasm). Surgical Lubricant Jelly gel For MRI Female Pelvis, MRI department to provide. Administer intra-vaginal Surgilube immediately prior the MRI procedure (total amount to patient toleranace). albuterol HFA (PROVENTIL HFA, VENTOLIN HFA) 90 mcg/actuation inhaler Inhale 2 Puffs as instructed every 4 hours as needed for wheezing/shortness of breath. atorvastatin (LIPITOR) 20 mg tablet Take 1 tablet by mouth daily at bedtime. For cholesterol. nystatin (MYCOSTATIN) cream Apply 1 application to affected area two times a day. cyclobenzaprine (FLEXERIL) 10 mg tablet Take 1 tablet by mouth three times a day as needed for muscle spasm. fluticasone-vilanterol (BREO ELLIPTA) 200-25 mcg/dose inhaler Inhale 1 Inhalation as instructed once daily. Inhale one puff once daily. DO NOT CLICK OPEN UNTIL READY FOR DOSE EPINEPHrine (EPIPEN) 0.3 mg/0.3 mL auto-injector 0.3 ml subcutaneous as needed for severe allergic reaction/may substitute. albuterol (PROVENTIL) 2.5 mg /3 mL (0.083 %) nebulizer solution Use 3 mL via nebulizer every 6 hours as needed for wheezing/shortness of breath. Use over 5-15minutes. ergocalciferol 50,000 unit capsule (VITAMIN D2, DRISDOL) Take 1 capsule by mouth one time a week. multivitamin tablet Take 1 tablet by mouth once daily. ascorbic acid (RANDA-C ORAL) Take 2,000 mg by mouth once daily. Nebulizer 1 Each once daily. NEBULIZER FOR HOME USE. DX: asthma J 45.909 No current facility-administered medications on file prior to visit. Social History Social History Tobacco Use Smoking status: Never Smokeless tobacco: Never Vaping Use Vaping status: Never Used Substance Use Topics Alcohol use: No Drug use: No Review of Systems: Skin: (+) localized swelling, (+) localized warmth Physical Exam: BP 102/69 (BP Site: Left Arm, BP Position: Sitting, BP Cuff Size: Large Adult) Pulse 73 Temp 36.7 ?C (98.1 ?F) Wt 115.2 kg (254 lb) LMP 06/01/2024 (Exact Date) SpO2 97% BMI 46.46 kg/m? GENERAL: NAD, alert and oriented. SKIN: Erythema and warmth noted in outlined area on L inner thigh, swelling present. No rash or other skin lesions. Assessment/Plan: 1. Cellulitis of left leg ( (more content not included)... [facility] 07-10-2024 History of Present illness Narrative 07/10/2024 Recording using Pipewise software for draft documentation of the visit was discussed with the patient/authorized agency service representative; all questions welcomed and answered. Patient/authorized agency service representative agreed to proceed HPI: Don is a 34-year-old female presenting with acute onset of erythema and warmth on the leg LLE Erythema and Warmth: - Noticed erythema and warmth on the L thigh this morning. - Outlined the affected area one hour ago; reports swelling and redness. - Denies known trauma or injury to the area. - Denies fever - Recent partial hysterectomy on the , healing well. - Completed a 3-day course of Bactrim for a UTI, with the last dose taken at 1300 today. - Allergic to Keflex. No other concerns or complaints today. 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 EGD W/O BRSH SPEC VARICIES INJ 11/28/2021 Normal REMOVE TONSILS/ADENOIDS,12+ Y/O TONSILLECTOMY HX Family History FAMILY HISTORY Problem Relation Age of Onset Asthma Mother Hyperlipidemia Mother Osteoporosis Mother Diabetes Father Psoriasis Father Arthritis Father Diabetes Maternal Grandmother Heart Maternal Grandmother tachycardia Hypertension Maternal Grandmother None Maternal Grandfather Asthma Paternal Grandmother Stroke Paternal Grandmother Colon Cancer Maternal Uncle Patient Allergies ALLERGIES Allergen Reactions Shellfish Derived Anaphylaxis Keflex [Cephalexin] Rash Latex Rash Prevnar 20 (Pf) [Pn* Other: See Comments Allergies. Current Medications Current Outpatient Medications on File Prior to Visit Medication Sig ondansetron orally disintegrating (ZOFRAN ODT) 4 mg disintegrating tablet Take 1 tablet by mouth every 8 hours as needed for nausea/vomiting. ibuprofen (MOTRIN) 600 mg tablet Take 1 tablet by mouth every 6 hours as needed for pain. Take with food. docusate sodium (COLACE) 100 mg capsule Take 1 capsule by mouth two times a day. acetaminophen (TYLENOL EXTRA STRENGTH) 500 mg tablet Take 2 tablets by mouth every 6 hours as needed for pain. methocarbamol (ROBAXIN) 750 mg tablet Take 1 tablet by mouth three times a day as needed (pain/muscle spasm). Surgical Lubricant Jelly gel For MRI Female Pelvis, MRI department to provide. Administer intra-vaginal Surgilube immediately prior the MRI procedure (total amount to patient toleranace). albuterol HFA (PROVENTIL HFA, VENTOLIN HFA) 90 mcg/actuation inhaler Inhale 2 Puffs as instructed every 4 hours as needed for wheezing/shortness of breath. atorvastatin (LIPITOR) 20 mg tablet Take 1 tablet by mouth daily at bedtime. For cholesterol. nystatin (MYCOSTATIN) cream Apply 1 application to affected area two times a day. cyclobenzaprine (FLEXERIL) 10 mg tablet Take 1 tablet by mouth three times a day as needed for muscle spasm. fluticasone-vilanterol (BREO ELLIPTA) 200-25 mcg/dose inhaler Inhale 1 Inhalation as instructed once daily. Inhale one puff once daily. DO NOT CLICK OPEN UNTIL READY FOR DOSE EPINEPHrine (EPIPEN) 0.3 mg/0.3 mL auto-injector 0.3 ml subcutaneous as needed for severe allergic reaction/may substitute. albuterol (PROVENTIL) 2.5 mg /3 mL (0.083 %) nebulizer solution Use 3 mL via nebulizer every 6 hours as needed for wheezing/shortness of breath. Use over 5-15minutes. ergocalciferol 50,000 unit capsule (VITAMIN D2, DRISDOL) Take 1 capsule by mouth one time a week. multivitamin tablet Take 1 tablet by mouth once daily. ascorbic acid (RANDA-C ORAL) Take 2,000 mg by mouth once daily. Nebulizer 1 Each once daily. NEBULIZER FOR HOME USE. DX: asthma J 45.909 No current facility-administered medications on file prior to visit. Social History Social History Tobacco Use Smoking status: Never Smokeless tobacco: Never Vaping Use Vaping status: Never Used Substance Use Topics Alcohol use: No Drug use: No Review of Systems: Skin: (+) localized swelling, (+) localized warmth Physical Exam: BP 102/69 (BP Site: Left Arm, BP Position: Sitting, BP Cuff Size: Large Adult) Pulse 73 Temp 36.7 C (98.1 F) Wt 115.2 kg (254 lb) LMP 06/01/2024 (Exact Date) SpO2 97% BMI 46.46 kg/m GENERAL: NAD, alert and oriented. SKIN: Erythema and warmth noted in outlined area on L inner thigh, swelling present. No rash or other skin lesions. Assessment/Plan: 1. Cellulitis of left leg (L03.116) - Erythematous, warm, and swollen area on the left leg noted on examination; no known injury or trauma to the area. - Recent partial hysterectomy on the ; no current antibiotic therapy. - Completed a 3-day course of Bactrim for a UTI, which may have provided partial coverage. - Initiated doxycycline BID for 10 days; first dose to be taken tonight. - Advised to monitor the outlined area for any extension of erythema; instructed to report any increase in redness. - Scheduled follow-up appointment on at 0900 to assess response to treatment. - Prescription sent to [facility] Follow-up on Sunday , sooner if needed. Prescription instructions reviewed with patient as applicable. Potential red flag symptoms discussed with the patient. Reviewed appropriate action plan to take if red flag symptoms occur. Patient agreeable to treatment plan. Orders placed in this encounter: Office Visit on 07/10/24 doxycycline hyclate (VIBRAMYCIN) 100 mg capsule Lena Llanos APRN.CNP documented in this encounter [facility] 07-10-2024 Telephone encounter Note Called Patient. Verified name and . Relayed Gerri's message to patient. Patient stated that she is going to see her PCP about it Leona Keen RN [facility] 07-10-2024 Miscellaneous Notes Called Patient. Verified name and . Relayed Gerri's message to patient. Patient stated that she is going to see her PCP about it Leona Keen RN Patient calling, no one has called her back Janice Chung Agree this is not from surgery. She can use hydrocortisone cream. Gerri Masterson APRN.CNP Images from the original note were not included. Called Patient. Verified name and . Spot on leg that appeared today It is itchy and warm to touch, not painful Denies, fever, chill, vomiting Does report nausea and is taking Zofran, it's helpful Patient reports that she started taking bactrim on 07/07 for a UTI Denies lower extremity tingling and numbness Denies chest pain. Nurse informed patient that the spot on her leg is most likely not from surgery Patient is worried Patient states that her mother has drawn a [place] around it to see if it grows bigger Patient posted pictures on today Attachments [id number] [id number] Leona Keen RN Surgery with Dr. Childs on 07/01 Total Laparoscopic Hysterectomy, Bilateral Salpingectomy Left Oophorectomy Lysis of Adhesions Excision of Endometriosis - deep peritoneal and cul-de-sac including retrocervical peritoneum and left uterosacral ligament nodule Cystoscopy Reason for call: other - Patient question Provider name: Jerrod Additional comments: Patient called and stated a spot appeared on her leg and she would like to speak with nursing/doctor . See my chart message/image Recommendation: routed to nurse triage pool Last visit in this department: Visit date not found Last distance health visit in this department: Visit date not found Next visit in this department: Visit date not found 07/15/2024 in [facility] with GERRI MSATERSON - POST OP 2 WEEKS 07/16/2024 in [facility] with CLAUDIA LANGSTON - [place] 08/14/2024 in [facility] with GEORGE CHILDS - POST OP 6 WEEKS Latrice Mcgarry documented in this encounter [facility] 07-10-2024 Telephone encounter Note Patient calling, no one has called her back Janice Chung [facility] Work Phone: 07-10-2024 Telephone encounter Note Agree this is not from surgery. She can use hydrocortisone cream. Gerri Masterson APRN.CNP [facility] Work Phone: 07-10-2024 Telephone encounter Note Images from the original note were not included. Called Patient. Verified name and . Spot on leg that appeared today It is itchy and warm to touch, not painful Denies, fever, chill, vomiting Does report nausea and is taking Zofran, it's helpful Patient reports that she started taking bactrim on 07/07 for a UTI Denies lower extremity tingling and numbness Denies chest pain. Nurse informed patient that the spot on her leg is most likely not from surgery Patient is worried Patient states that her mother has drawn a [place] river around it to see if it grows bigger Patient posted pictures on today Attachments [id number] [id number] Leona Keen RN Surgery with Dr. Childs on 07/01 Total Laparoscopic Hysterectomy, Bilateral Salpingectomy Left Oophorectomy Lysis of Adhesions Excision of Endometriosis - deep peritoneal and cul-de-sac including retrocervical peritoneum and left uterosacral ligament nodule Cystoscopy [facility] 07-10-2024 Telephone encounter Note Reason for call: other - Patient question Provider name: Jerrod Additional comments: Patient called and stated a spot appeared on her leg and she would like to speak with nursing/doctor . See my chart message/image Recommendation: routed to nurse triage pool Last visit in this department: Visit date not found Last distance health visit in this department: Visit date not found Next visit in this department: Visit date not found 07/15/2024 in [facility] with GERRI MASTERSON - POST OP 2 WEEKS 07/16/2024 in [facility] with CLAUDIA LANGSTON - No 08/14/2024 in [facility] with GEORGE CHILDS - POST OP 6 WEEKS Latrice Mcgarry [facility] 07-08-2024 Telephone encounter Note Attempted to call patient with no answer. MC message sent to notify patient Rx was sent. Closing encounter as there is no further action indicated at this time. Aniya Raines RN [facility] 07-08-2024 Miscellaneous Notes Attempted to call patient with no answer. MC message sent to notify patient Rx was sent. Closing encounter as there is no further action indicated at this time. Aniya Raines RN Addended by: CELSA JAMES on: 07/08/2024 12:39 PM Modules accepted: Orders Agree- looks normal Glue intact The following approved medication requests have been transmitted electronically. Requested Prescriptions Signed Prescriptions Disp Refills ondansetron orally disintegrating (ZOFRAN ODT) 4 mg disintegrating tablet 10 tablet 0 Sig: Take 1 tablet by mouth every 8 hours as needed for nausea/vomiting. Authorizing Provider: GEORGE CHILDS Ordering User: CELSA JAMES APRN.PIPELINE INTEGRITY ENGINEER July 08, 2024 12:39 PM Surgery: Total Laparoscopic Hysterectomy, Bilateral Salpingectomy, Left Oophorectomy, Lysis of Adhesions, Excision of Endometriosis - deep peritoneal and cul-de-sac including retrocervical peritoneum and left uterosacral ligament nodule, Cystoscopyon 07/01/[address] Childs Called Patient. Verified name and . The pt reports that she noticed that her LLQ incision seemed to look open, yellow crusting on umbilical incision ,that her abdominal incisions felt itchy. Pt sent photos via , photo uploaded to [employer]. Nursing viewed the imaging and informed the pt that her incision appeared to be closed and intact with the skin glue and that her umbilicus looked normal and to continue with her daily showers and pat dry her incisions. Clear/pink tinged drainage is normal for several weeks post operative. Regarding the incisional itching, pt was informed that itching could be related to normal healing, which can cause itching. Pt verbalized understanding. The pt denies having redness, warmth, pus, blood, or rash of the incisions and denies fever and chills. Nursing informed the pt to contact our office for bleeding, pus, fever, chills, increased pain, fever, chills and opening of her incisions. Pt verbalized understanding. Also, pt reports having intermittent nausea since surgery. Are we able to order the pt an antiemetic? [id number] [place] [address] - [address] [facility] [phone] [id number] Please advise. Le Man RN July 08, 2024 11:41 AM Reason for call: postop concern/postop fever/problems with incision (if within 6 weeks of surgery, route to nurse pool as high priority) Opened incision Provider name: Jerrod Additional comments: Patient called and stated that her left lower incision has opened and she is seeking guidance . Recommendation: routed to nurse triage pool Last visit in this department: Visit date not found Last distance health visit in this department: Visit date not found Next visit in this department: Visit date not found 07/15/2024 in [facility] with GERRI MASTERSON - POST OP 2 WEEKS 07/16/2024 in [facility] with CLAUDIA LANGSOTN - No 08/14/2024 in [facility] with GEORGE CHILDS - POST OP 6 WEEKS Latrice Mcgarry documented in this encounter [facility] 07-08-2024 Note Addended by: CELSA JAMES on: 07/08/2024 12:39 PM Modules accepted: Orders [facility] 07-08-2024 Telephone encounter Note Agree- looks normal Glue intact The following approved medication requests have been transmitted electronically. Requested Prescriptions Signed Prescriptions Disp Refills ondansetron orally disintegrating (ZOFRAN ODT) 4 mg disintegrating tablet 10 tablet 0 Sig: Take 1 tablet by mouth every 8 hours as needed for nausea/vomiting. Authorizing Provider: GEORGE CHILDS Ordering User: CELSA JAMES APRN.CNP July 08, 2024 12:39 PM [facility] 07-08-2024 Telephone encounter Note Surgery: Total Laparoscopic Hysterectomy, Bilateral Salpingectomy, Left Oophorectomy, Lysis of Adhesions, Excision of Endometriosis - deep peritoneal and cul-de-sac including retrocervical peritoneum and left uterosacral ligament nodule, Cystoscopyon 07/01/[address] Childs Called Patient. Verified name and . The pt reports that she noticed that her LLQ incision seemed to look open, yellow crusting on umbilical incision ,that her abdominal incisions felt itchy. Pt sent photos via , photo uploaded to [employer]. Nursing viewed the imaging and informed the pt that her incision appeared to be closed and intact with the skin glue and that her umbilicus looked normal and to continue with her daily showers and pat dry her incisions. Clear/pink tinged drainage is normal for several weeks post operative. Regarding the incisional itching, pt was informed that itching could be related to normal healing, which can cause itching. Pt verbalized understanding. The pt denies having redness, warmth, pus, blood, or rash of the incisions and denies fever and chills. Nursing informed the pt to contact our office for bleeding, pus, fever, chills, increased pain, fever, chills and opening of her incisions. Pt verbalized understanding. Also, pt reports having intermittent nausea since surgery. Are we able to order the pt an antiemetic? [facility]: [id number] [place] [address] - [address] [facility] [phone] [id number] Please advise. Le Man RN July 08, 2024 11:41 AM [facility] 07-08-2024 Telephone encounter Note Reason for call: postop concern/postop fever/problems with incision (if within 6 weeks of surgery, route to nurse pool as high priority) Opened incision Provider name: Jerrod Additional comments: Patient called and stated that her left lower incision has opened and she is seeking guidance . Recommendation: routed to nurse triage pool Last visit in this department: Visit date not found Last distance health visit in this department: Visit date not found Next visit in this department: Visit date not found 07/15/2024 in [facility] with GERRI MASTERSON - POST OP 2 WEEKS 07/16/2024 in [facility] with CLAUDIA LANGSTON - No 08/14/2024 in [facility] with GEORGE CHILDS - POST OP 6 WEEKS Latrice Mcgarry [facility] 07-07-2024 Telephone encounter Note Telephone Encounter Don Mehta Clark [id number] Provider: Dr. Childs Surgery: ABIODUN TAYLOR, RONALD MCKEON EOE 07/02/2024 Patient identity verified by name and . Called patient today regarding suprapubic pain and frequency which she has been experiencing since yesterday. She reports she is experiencing mild dysuria as well. Denies fever, chills, nausea, vomiting, hematuria, flank pain. She has been adequately hydrating. She has had a UTI before and reports that these symptoms feel similar to what she experienced when she last had a UTI. Discussed that this is likely a UTI. Patient's preferred pharmacy reviewed and confirmed. Prescription for bactrim DS BID for 3 days sent to her pharmacy. Counseled construction management assistant-back precautions including persistent or worsening of symptoms. Patient expressed understanding of and agreement with plan of care. All questions and concerns answered adequately. Counseled patient that phone conversation is not equivalent to a formal in-person clinical assessment, i.e. clinical problems cannot always be identified over phone. Welcomed patient to call back any time and, if concerned, patients have the autonomy/liberty to decide to go the ED. Phone encounter forwarded to on-call MIGS fellow. Anitha Aguilera MD 07/07/24 7:23 AM [facility] 07-07-2024 Miscellaneous Notes Telephone Encounter Don Rodas [id number] Provider: Dr. Childs Surgery: ABIODUN TAYLOR, RONALD MCKEON, KYLE 07/02/2024 Patient identity verified by name and . Called patient today regarding suprapubic pain and frequency which she has been experiencing since yesterday. She reports she is experiencing mild dysuria as well. Denies fever, chills, nausea, vomiting, hematuria, flank pain. She has been adequately hydrating. She has had a UTI before and reports that these symptoms feel similar to what she experienced when she last had a UTI. Discussed that this is likely a UTI. Patient's preferred pharmacy reviewed and confirmed. Prescription for bactrim DS BID for 3 days sent to her pharmacy. Counseled construction management assistant-back precautions including persistent or worsening of symptoms. Patient expressed understanding of and agreement with plan of care. All questions and concerns answered adequately. Counseled patient that phone conversation is not equivalent to a formal in-person clinical assessment, i.e. clinical problems cannot always be identified over phone. Welcomed patient to call back any time and, if concerned, patients have the autonomy/liberty to decide to go the ED. Phone encounter forwarded to on-call MIGS fellow. Anitha Aguilera MD 07/07/24 7:23 AM documented in this encounter [facility] 07-07-2024 Telephone encounter Note Patient calling regarding Hysterectomy, pain. Conferenced to [facility] rig operator, Roberta, to speak with provider construction management assistant for Dr. George Childs. [facility] 07-07-2024 Miscellaneous Notes Patient calling regarding Hysterectomy, pain. Conferenced to [facility] rig operator, Roberta, to speak with provider construction management assistant for Dr. George Childs. documented in this encounter [facility] 07-03-2024 Telephone encounter Note Called Patient. Verified name and . Informed pt of below msg from Angelo Masterson CNP: Please reassure her that the dilation is from the patch. She can go to urgent care if she is very worried or it doesn't resolve by tomorrow. Advised pt to wash with soap and water where the scopolamine patch was removed from to ensure that no residue of medication remains. Pt verbalized understanding. Pt will continue to monitor symptoms. If symptoms do not resolve by tomorrow, pt will then go to urgent care. Estela Deleon RN July 03, 2024 1:11 PM [facility] 07-03-2024 Miscellaneous Notes Called Patient. Verified name and . Informed pt of below msg from Angelo Masterson CNP: Please reassure her that the dilation is from the patch. She can go to urgent care if she is very worried or it doesn't resolve by tomorrow. Advised pt to wash with soap and water where the scopolamine patch was removed from to ensure that no residue of medication remains. Pt verbalized understanding. Pt will continue to monitor symptoms. If symptoms do not resolve by tomorrow, pt will then go to urgent care. Estela Deleon RN July 03, 2024 1:11 PM Please reassure her that the dilation is from the patch. She can go to urgent care if she is very worried or it doesn't resolve by tomorrow. Gerri Masterson APRN.MARIO Reason for call: postop concern/postop fever/problems with incision (if within 6 weeks of surgery, route to nurse pool as high priority) Provider name: Dr Childs Additional comments: one of her eyes is dilated, concerns about bandage. Patient phone [phone] Recommendation: routed to nurse triage pool Last visit in this department: Visit date not found Last distance health visit in this department: Visit date not found Next visit in this department: Visit date not found Appointments for Next 60 Days Date Time Provider Location Dept Phone 07/15/2024 9:30 AM GERRI MASTERSON [phone] 07/16/2024 9:50 AM CLAUDIA LANGSTON [phone] 08/14/2024 11:30 AM GEORGE CHILDS [place] [phone] Electronically signed by Jose ArmandoSheldon [facility] 07/03/2024 11:55 AM EDT Called pt. Verified name/ POD #2 S/p 07/01/24 Total Laparoscopic Hysterectomy, Bilateral Salpingectomy Left Oophorectomy Lysis of Adhesions Excision of Endometriosis - deep peritoneal and cul-de-sac including retrocervical peritoneum and left uterosacral ligament nodule Cystoscopy Pt c/o dilated left pupil, headache and slightly dizzy. Vision not blurry. Removed scopolamine patch on 07/02 @ 1800. Advised will forward to Care Team for recommendations. Advised to rest and when up walking have her mother assist as needed. Advised to OK to remove dressing. Routing to [facility] [place] and ORIGINATION SPECIALIST Pool. 07/03/24 TE Telephone Encounter Don Rodas [id number] Provider: Dr. Childs Surgery: TLH, BS, left Oophorectomy, RONALD, EoE, cystoscopy Patient identity verified by name and . Returned patient call today regarding dilated pupil. She states that her left pupil is more dilated than her right one, and her vision is slightly blurry on the left. She denies pain in her eyes, headache, other changes in vision. Endorses good postoperative recovery, denies pain or other concerns. Discussed with patient that her symptoms are likely related to transferrence of scopolamine from her patch to the area around her eye. Patient states that she removed the patch earlier today, expresses understanding that the symptoms will likely resolve within the next day. Counseled construction management assistant-back precautions including persistent or worsening of symptoms. Patient expressed understanding of and agreement with plan of care. All questions and concerns answered adequately. Patient discussed with Dr. Jiménez, chief resident. Delaney Ariza MD 07/03/24 12:06 AM Meredith Robertson RN July 03, 2024 12:03 PM Patient called is having problem after her surgery from Dr. Childs on 07/01/24 and would like to talk to someone today. Please and Thank you. documented in this encounter [facility] 07-03-2024 Telephone encounter Note Please reassure her that the dilation is from the patch. She can go to urgent care if she is very worried or it doesn't resolve by tomorrow. Gerri Masterson APRN.PIPELINE INTEGRITY ENGINEER [facility] Work Phone: 07-03-2024 Telephone encounter Note Reason for call: postop concern/postop fever/problems with incision (if within 6 weeks of surgery, route to nurse pool as high priority) Provider name: Dr Childs Additional comments: one of her eyes is dilated, concerns about bandage. Patient phone [phone] Recommendation: routed to nurse triage pool Last visit in this department: Visit date not found Last distance health visit in this department: Visit date not found Next visit in this department: Visit date not found Appointments for Next 60 Days Date Time Provider Location Dept Phone 07/15/2024 9:30 AM GERRI MASTERSON [facility] [phone] 07/16/2024 9:50 AM CLAUDIA LANGSTON [facility] [phone] 08/14/2024 11:30 AM GEORGE CHILDS [place] [phone] [facility] Work Phone: 07-03-2024 Telephone encounter Note Called pt. Verified name/ POD #2 S/p 07/01/24 Total Laparoscopic Hysterectomy, Bilateral Salpingectomy Left Oophorectomy Lysis of Adhesions Excision of Endometriosis - deep peritoneal and cul-de-sac including retrocervical peritoneum and left uterosacral ligament nodule Cystoscopy Pt c/o dilated left pupil, headache and slightly dizzy. Vision not blurry. Removed scopolamine patch on 07/02 @ 1800. Advised will forward to Care Team for recommendations. Advised to rest and when up walking have her mother assist as needed. Advised to OK to remove dressing. Routing to [facility] [place] and ORIGINATION SPECIALIST Pool. 07/03/24 TE Telephone Encounter Don Tyson Clark [id number] Provider: Dr. Childs Surgery: BRANDON, BS, left Oophorectomy, RONALD, EoE, cystoscopy Patient identity verified by name and . Returned patient call today regarding dilated pupil. She states that her left pupil is more dilated than her right one, and her vision is slightly blurry on the left. She denies pain in her eyes, headache, other changes in vision. Endorses good postoperative recovery, denies pain or other concerns. Discussed with patient that her symptoms are likely related to transferrence of scopolamine from her patch to the area around her eye. Patient states that she removed the patch earlier today, expresses understanding that the symptoms will likely resolve within the next day. Counseled construction management assistant-back precautions including persistent or worsening of symptoms. Patient expressed understanding of and agreement with plan of care. All questions and concerns answered adequately. Patient discussed with Dr. Jiménez, chief resident. Delaney Ariza MD 07/03/24 12:06 AM Meredith Robertson RN July 03, 2024 12:03 PM [facility] 07-03-2024 Telephone encounter Note Patient called is having problem after her surgery from Dr. Cihlds on 07/01/24 and would like to talk to someone today. Please and Thank you. T [facility] 07-03-2024 Telephone encounter Note Telephone Encounter Don Rodas [id number] Provider: Dr. Childs Surgery: BRANDON, BS, left Oophorectomy, RONALD, EoE, cystoscopy Patient identity verified by name and . Returned patient call today regarding dilated pupil. She states that her left pupil is more dilated than her right one, and her vision is slightly blurry on the left. She denies pain in her eyes, headache, other changes in vision. Endorses good postoperative recovery, denies pain or other concerns. Discussed with patient that her symptoms are likely related to transferrence of scopolamine from her patch to the area around her eye. Patient states that she removed the patch earlier today, expresses understanding that the symptoms will likely resolve within the next day. Counseled construction management assistant-back precautions including persistent or worsening of symptoms. Patient expressed understanding of and agreement with plan of care. All questions and concerns answered adequately. Patient discussed with Dr. Jiménez, chief resident. Delaney Ariza MD 07/03/24 12:06 AM [facility] Work Phone: 07-03-2024 Miscellaneous Notes Telephone Encounter Don Rodas [id number] Provider: Dr. Childs Surgery: TLH, BS, left Oophorectomy, RONALD, EoE, cystoscopy Patient identity verified by name and . Returned patient call today regarding dilated pupil. She states that her left pupil is more dilated than her right one, and her vision is slightly blurry on the left. She denies pain in her eyes, headache, other changes in vision. Endorses good postoperative recovery, denies pain or other concerns. Discussed with patient that her symptoms are likely related to transferrence of scopolamine from her patch to the area around her eye. Patient states that she removed the patch earlier today, expresses understanding that the symptoms will likely resolve within the next day. Counseled construction management assistant-back precautions including persistent or worsening of symptoms. Patient expressed understanding of and agreement with plan of care. All questions and concerns answered adequately. Patient discussed with Dr. Jiménez, chief resident. Delaney Ariza MD 07/03/24 12:06 AM documented in this encounter [facility] 07-02-2024 Telephone encounter Note Patient calling regarding she had a hysterectomy yesterday and she noticed today that one of her eye pupils is dilated. Patient asking if it could be related to her surgery. Conferenced to [facility] rig operator to speak with provider construction management assistant for Dr. George Cihlds. [facility] 07-02-2024 Miscellaneous Notes Patient calling regarding she had a hysterectomy yesterday and she noticed today that one of her eye pupils is dilated. Patient asking if it could be related to her surgery. Conferenced to [facility] rig operator to speak with provider construction management assistant for Dr. George Childs. documented in this encounter [facility] 07-01-2024 Note HNO ID: [id number] Author: ANCA TRAN MD Service: Gynecology Author Type: Resident Type: Progress Notes Filed: 07/01/2024 14:14 Note Text: GYNECOLOGY POST-OP PROGRESS NOTE SERVICE DATE: 07/01/2024 SERVICE TIME: 2:10 PM POST OP DAY: # 0 Subjective Patient reports diffuse, cramping abdominal pain. Had some nausea with the last oral medication she was given- did not have emesis. Has not yet ambulated. Wants to attempt to void on a bedpan. Objective PHYSICAL EXAM: Patient Vitals for the past 8 hrs: BP Temp Temp src Pulse Resp SpO2 07/01/24 1400 144/90 36 ?C (96.8 ?F) Temporal 70 15 99 % 07/01/24 1330 123/63 -- -- 74 16 95 % 07/01/24 1315 125/67 -- -- 81 16 95 % 07/01/24 1300 121/62 -- -- 72 16 95 % 07/01/24 1245 127/73 -- -- 69 16 95 % 07/01/24 1230 115/62 -- -- 73 16 95 % 07/01/24 1215 115/67 -- -- 73 16 95 % 07/01/24 1200 129/68 -- -- 75 16 93 % 07/01/24 1145 130/67 -- -- 75 18 95 % 07/01/24 1130 131/67 36.9 ?C (98.4 ?F) Temporal Art 69 18 95 % 07/01/24 1115 133/68 -- -- 69 18 98 % 07/01/24 1100 133/73 -- -- 67 17 99 % 07/01/24 1045 114/56 -- -- 66 20 97 % 07/01/24 1030 109/53 -- -- 66 20 97 % 07/01/24 1029 113/55 36 ?C (96.8 ?F) -- 77 18 98 % 07/01/24 0644 115/57 36.6 ?C (97.9 ?F) Temporal Art 66 16 98 % Intake/Output Summary (Last 24 hours) at 07/01/2024 1410 Last data filed at 07/01/2024 1029 Gross per 24 hour Intake 1600 ml Output 900 ml Net 700 ml General: In no apparent distress. Comfortable. Cardiovascular: Regular rate and rhythm. Pulmonary: Lungs clear to all akers. Abdomen: Soft, appropriately tender, non-distended, port incisions closed with suture and skin glue LABS: Diagnostic tests reviewed for today's visit: No new labs Current Facility-Administered Medications Medication Dose Route Frequency lactated ringers iv infusion 5-30 mL/hr INTRAVENOUS CONTINUOUS fentaNYL 50 mcg/mL 25-50 mcg injection (SUBLIMAZE) 25-50 mcg INTRAVENOUS q 10 MIN PRN oxyCODONE IR 5 mg tab(s) (ROXICODONE) 5 mg ORAL q 4 H PRN diphenhydrAMINE 25 mg injection (BENADRYL) 25 mg INTRAVENOUS q 6 H PRN fosaprepitant 150 mg in NaCl 0.9% 250 mL (EMEND) 150 mg INTRAVENOUS PRN HYDROmorphone 0.5 mg injection (DILAUDID) 0.5 mg INTRAVENOUS ONCE keTORolac 30 mg injection (Toradol) 30 mg INTRAVENOUS ONCE methocarbamol 1 g injection (ROBAXIN) 1 g INTRAVENOUS ONCE Assessment AND Plan Post-operative state 33 yo s/p TLH-BS, left oophorectomy, excision of endometriosis, cysto 07/01. - HDS, abdominal exam benign - Pain inadequately controlled in PACU, will supplement regimen with IV robaxin - S/p passive void trial in PACU - Encouraged ambulation - Anticipate discharge home Morbid Obesity Class 3 Medication and Non-Pharmacologic VTE Prophylaxis/Anticoagulants Plan of care discussed with: Provider, RN, Patient. SIGNATURE: Anca Tran MD PATIENT NAME: Don Rodas DATE: July 01, 2024 TIME: 2:10 PM ETX#[id number] [facility] 07-01-2024 Note HNO ID: [id number] Author: JEANNE SARABIA APRN.MANAGER ACTIVITIES Service: ? Author Type: Nurse Environmental Science Professor Type: Anesthesia Procedure Notes Filed: 07/01/2024 08:07 Note Text: ANESTHESIOLOGY PROCEDURE NOTE PIV General Information Procedure Start Time/Medication Administration: 07/01/2024 8:06 AM Procedure End Time: 07/01/2024 8:06 AM Patient Location: OR Staffing Anesthesiologist: Andrés Friedman MD Performed by: anesthesiologist Preparation Sterility Preparation: hand hygiene performed prior to procedure Sterility Technique Not Completely Performed Due to Extreme Emergency: No Site Prep: alcohol Procedure Details Indication: need for IV access Needle Size/Type: 18 gauge angiocath Orientation: Left Location: Hand Imaging Guidance Used: No SIGNATURE: Jeanne Sarabia APRN.MANAGER ACTIVITIES PATIENT NAME: Don Rodas DATE: July 01, 2024 TIME: 8:06 AM CSN: [id number] [facility] 07-01-2024 Note HNO ID: [id number] Author: JEANNE SARABIA APRN.MANAGER ACTIVITIES Service: ? Author Type: Nurse Environmental Science Professor Type: Anesthesia Procedure Notes Filed: 07/01/2024 08:06 Note Text: ANESTHESIOLOGY PROCEDURE NOTE Airway General Information Procedure Start Time/Medication Administration: 07/01/2024 7:41 AM Procedure End Time: 07/01/2024 7:41 AM Patient location during procedure: OR Timeout Performed Pre-procedure: timeout performed Consent Obtained: Yes Patient identity confirmed: arm band, care care team coordinator scheduler and patient Staffing MANAGER ACTIVITIES: Jeanne Sarabia APRN.MANAGER ACTIVITIES Performed by: CHARLIE Indications and Patient Condition Indications for airway management: anesthesia Preoxygenated: yes anesthesia circuit Patient position: sniffing Method: asleep Cricoid Pressure: No Manual In-Line Stabilization: No Difficult Mask: No Final Airway Details Final airway type: endotracheal airway Final Endotracheal Airway: ETT Cuffed: yes Successful intubation technique: video laryngoscopy Devices used: Mis Descuentos Endotracheal tube insertion site: oral Blade: Chris Blade size: #4 ETT size (mm): 7.0 Measured from: teeth Measurement (cm): 22 Placement verified by: capnometry Cormack-Lehane Classification: grade I - full view of glottis Number of attempts at approach: 1 Failed airway: no Unrecognized esophageal intubation: no Airway not difficult SIGNATURE: Jeanne Sarabia APRN.CRNA PATIENT NAME: Don Rodas DATE: July 01, 2024 TIME: 8:04 AM CSN: [id number] [facility] 06-20-2024 Note HNO ID: [id number] Author: DEYANIRA BENSON LPN Service: ? Author Type: LICENSED NURSE Type: Progress Notes Filed: 06/25/2024 13:22 Note Text: DATE OF SERVICE: 06/25/2024 PROBLEM: Don Rodas presents for pre-op teaching. PRE-OP DIAGNOSIS: Endometriosis, Pelvic pain SCHEDULED SURGERY AND DATE: 07/01/2024 @ main Procedure: LAPAROSCOPIC HYSTERECTOMY TOTAL FOR UTERUS 250 G OR LESS W/REMOVAL TUBE(S) AND/OR OVARY(S) Laterality Anesthesia Op Region N/A General Procedure: CYSTOSCOPY Laterality Anesthesia Op Region N/A General PRIMARY SURGEON: George Childs DO NURSING PREOP ASSESSMENT: Fevers, chills, cough, or nasal congestion: No Vaginal itching, burning, discharge, or odor: No Pain with urination, frequency, urgency, cloudy or foul smelling urine: No If yes to any of the above then MD notified: Not Applicable ADVANCED CARE PLANNING: Does the patient have an advanced directive: No Does [facility] have a copy of the patient's advanced directive: No Was advanced directive given to the patient: No PATIENT LEARNING ASSESSMENT: Individual patient/family learning needs evaluated and addressed: Yes Cognitive ability: Alert and oriented Motivation to learn: Interested Factors affecting learning: None Physical limitations affecting learning: None Patient learns best by: Written Instruction - Hand-outs Verbal Instruction Method of instruction: Written instruction/Handouts Verbal instruction Instructions provided to: Patient via telephone. Written material provided prior to education appointment. Family support: High - Very involved in pt care PRE- AND POST-OPERATIVE TEACHING Pre-operative teaching and supplemental material provided and reviewed with patient: Your Surgical Guide Book Map Written pre-op and post-op instructions Antibacterial soap:will use own Pre-operative instructions provided and reviewed with patient/family: No eating, drinking, or smoking after midnight prior to surgery unless otherwise directed No alcohol the day before surgery Medications as prescribed by anesthesia, internal medicine, surgeon, or ORIGINATION SPECIALIST Stop NSAIDs, Aspirin (ASA), vitamins, herbal supplements, herbal teas, and diet pills 7-10 days prior to surgery OK to take tylenol prn pain unless otherwise directed by physician Call surgery coordinators if any other questions about surgery date or pre-op appointments Bowel prep instructions: NPO after midnight Day of surgery instructions provided and reviewed with patient/family: Arrival time (call surgical coordinators on the office day prior to surgery for verification) No jewelry, body piercing, makeup, contacts, lotions, nail palauan on fingers, or anything in hair on arrival to surgery Wear low healed shoes and loose fitting clothing Leave all valuables at home or with a family member Directions to [facility] and [facility] Parking/parking validation on the day prior to surgery Admission/check in (Report to DESK J1-9 for surgery) Holding area Placement of IV Surgical positioning Family waiting area Surgical recovery room Post-operative instructions provided and reviewed with patient/family: SEE PATIENT INSTRUCTION SECTION FOR DETAILS. SYMPTOMS TO NOTIFY MD - Fever, chills, nausea, vomiting, increased or severe pain, heavy vaginal bleeding, foul smelling vaginal drainage, pain or swelling in extremities. URGENT SYMPTOMS - Call 911 or go to ER if any shortness of breath, difficulty breathing, or chest pain. HOW TO CONTACT PHYSICIAN - Physician's office phone number given to patient, if after hours patient instructed to call rig operator and ask for construction management assistant hand endband cutter onc resident. NITHYA program offered to patient: Yes Additional teaching as indicated by patient/family learning needs. PATIENT LEARNING EVALUATION AND FOLLOW UP PLAN: Patient and/or family express understanding of upcoming surgery, pre-operative preparation, the operative process, and post-operative instructions. Follow up plan: Patient instructed to call with any further issues Patient has a post-op appointment scheduled: Yes 08/14/2024 Referral (recommentation): None Educator: Deyanira Benson LPN [facility] 06-19-2024 History and physical note Images from the original note were not included. [facility] HISTORY AND PHYSICAL EXAMINATION SERVICE DATE: 06/19/2024 SERVICE TIME: 8:50 AM PRIMARY CARE PHYSICIAN: Ariana Bhagat MD Assessment Patient has the following medical conditions which may affect lamont-operative course: Excessive daytime sleepiness Assessment: +snoring, obesity, denies LILLIANA but suspected Hyperlipidemia LDL goal <130 Assessment: c/w statin Mild intermittent asthma, uncomplicated Assessment: controlled on rx and as needed Acute upper respiratory infection Assessment: recent URI 2-3 days, nasal congestion/drainage, ear fullness, reviewed supportive care, and to notify surgeon's office if no improvement and follow up with PCP's office Thrombocytosis Assessment: hx, seen hematology in the past, dates back at least 10 years Platelet Count Date Value Ref Range Status 12/22/2023 495 (H) 150 - 400 k/uL Final Obesity, Class III, BMI 40-49.9 (morbid obesity) ([facility]) Assessment: Body mass index is 44.96 kg/m . ANESTHESIA FINDINGS: Intubation History: No history of difficult intubation Significant Anesthesia Considerations: none Airway History: No history of difficult airway Aguilar Activity Status Index: METS: Climb a flight of stairs or walk up a hill (5.50 METs) DASI Score: 5.5 Patient denies any chest pain or undue shortness of breath with the above physical activity. Clinical Frailty Scale: 3. Well, with treated comorbid disease STOP-Bang Score: Snores loudly Often feels tired, fatigued, or sleepy during the daytime BMI greater than 35 kg/m^2 Has a large neck Has not been observed to stop breathing or choking/gasping during sleep Denies having high blood pressure Patient 50 years old or younger Non-male patient STOP-Bang Score: 4 [id number] Score: Age: <65 Sex: female CHF history: No Hypertension history: No Stroke/TIA/thromboembolism history: No Vascular disease history: No Diabetes history: No [id number] Score: 1 ARISCAT Score: Age: <=50 Preoperative SpO2: >=96% Respiratory infection in the last month: No Preoperative anemia: No Surgical incision: peripheral Duration of surgery: >3 hrs Emergency procedure: No ARISCAT Score: 23 I - PHYSICAL EVALUATION AIRWAY Patient intubated: No. Tracheostomy tube not present Mallampati: III. TM distance: >3 FB. Neck ROM: full ROM without neurological symptoms. Mouth opening: adequate. Short neck: no. Thick neck: yes Preciado present: no Lip Bite Test: I Microretrognathia/Micronagthia/Re cessed Chin: No DENTAL Dental findings: teeth intact. II - ANESTHESIA PLAN Anesthetic Plan: other Beta Maxwell Monitoring Plan Post Procedure Analgesic Plan Prepared for Surgery: optimally prepared for surgery, pending [see comment]. labs CONSULTS: Patient does not require consults for optimization at this time Planned Anesthetic: other anesthesia choice The Following Tests/Procedures Have Been Initiated: No orders of the defined types were placed in this encounter. REASON FOR VISIT: Don Rodas is a 33 year old female who is scheduled for Procedure(s): LAPAROSCOPIC HYSTERECTOMY TOTAL FOR UTERUS 250 G OR LESS W/REMOVAL TUBE(S) AND/OR OVARY(S) (N/A) CYSTOSCOPY (N/A) at the request of Dr. George Childs for consultation. My final recommendation will be communicated back to the requesting physician by way of shared medical record or letter. Subjective The patient has the following: COVID-19 Immunization Status Completed or No Longer Recommended Covid-19 Vaccine (Series Information) Completed 10/21/2023 Imm Admin: COVID-19 vaccine, age 12+ yr (PFIZER-BIONTECH COMIRNATY) 11/28/2022 Imm Admin: COVID-19 vaccine, age 12+ yr, 2022- season (PFIZER-BIONTECH) 10/09/2021 Imm Admin: COVID-19 vaccine, age 12+ yr, bivalent (MODERNA) Only the first 3 history entries have been loaded, but more history exists. CHIEF COMPLAINT: Pre-op exam HPI: Don Rodas is a 33 year old seen for PAC due to scheduled above surgery because of endometriosis. 05/09/2024, Dr. George Childs CHIEF COMPLAINT: Don Rodas is a 33 year old female who presents with a history of ENDOMETRIOSIS. The patient reports experiencing daily pelvic pain for several years, which has gradually worsened over time. The pain is primarily located on the left side but has also been severe on the right side, prompting two emergency room visits. During these episodes, she describes intense pressure causing her to walk bent over. The pain is constant, worsening during the day and slightly improving at night, allowing her to sleep. The pain intensifies during menstruation and is exacerbated by prolonged sitting at work, necessitating frequent standing to alleviate pelvic pressure. She denies worsening pain with eating, exercise, urination, bowel movements, or intercourse. Mild relief is noted with exercise and ibuprofen use. She has not tried hormonal treatments such as control pills, shots, or IUDs. Recent imaging revealed a 7 cm left ovarian cyst concerning for endometriosis, with the right ovary appearing normal. She expresses a desire for treatment to alleviate pain, including medication or surgical options. She describes her symptoms as constant sharp pain mainly LLQ Symptoms have been present for about 3 years ago Her pain is felt at these locations: lower abdomen Left > Right Pain radiates to lower back, upper left leg Her pain is worse during her menses. She describes her menses as very heavy with clots She is taking or tried the following for menses suppression: Nothing She reports the following bowel complaints: No . She reports the following bladder complaints: No. She has not missed work/school due to pain. She has visited the Emergency Room for the pain. She is unsure about future child bearing. She has not been a victim of emotional, physical, or sexual abuse. Aggravating factors: None. Alleviating factors: water aerobics. Nonsurgical attempts to ameliorate her pain have included: Attempted surgical treatment has been as follows: IMAGING: MRI 02/08/2024 IMPRESSION: 1. Multiple left ovarian endometriomas. No suspicious ovarian lesions. 2. Deep pelvic endometriosis tethering the left ovary and invading the torus uterinus. It also tethers the rectosigmoid without definite muscular invasion. Past Gynecologic History: Menarche: LMP: Last pap cytology: 01/18/2022 WNL History of abnormal history No History of STI: No History of PID: No Past Obstetrical History: Vaginal delivery: Section: Ectopic: Miscarriage: REVIEW OF SYSTEMS: General: No weight loss, malaise or fevers. Neurological: No history of TIA's, stroke, SLUICE TENDER tumor, impaired sensorium, hemiplegia, paraplegia or quadraplegia. No neurological symptoms or problems. Respiratory: Positive for: asthma (on rx, and as needed). Negative for: COPD, current cough, dyspnea, pneumonia within 6 weeks, tobacco use, URI < 2 weeks and obstructive sleep apnea. Cardiovascular: Positive for: hyperlipidemia (on rx) Negative for: abdominal aortic aneurysm, AICD/PPM, angina, anticoagulation therapy, arrhythmia, atrial fibrillation, CAD, chest pain, CHF, congenital heart defect, DVT/PE, hypertension, recent NV, murmur/valvular heart disease, PTCA, PVD, open heart surgery and valve surgery. GI: No history of GI symptoms or problems. No history of esophageal varices, recent ascites, or ETOH greater than 2 drinks per day. : No history of dysuria, frequency or incontinence, stones or chronic kidney disease. No difficulty urinating, nocturia > 1 time per night or hematuria. SEM MANAGER: See HPI. Negative for: vaginal bleeding and vaginal discharge. Endocrine: No history of diabetes. Has not taken steroids within the past 30 days. No history of endocrinological symptoms or problems. Hematology: No history of bleeding or clotting disorder. Patient is not taking anti-coagulation or platelet medications. No history of hematological symptoms or problems. Oncology: No history of CA metastasis, chemo within 30 days, or radiotherapy within 90 days. No history of oncological symptoms or problems. Psych: No history of psychiatric symptoms or problems. Musculoskeletal: Positive for: back pain (LBP). Skin: Negative for lesions, rash and itching. Implanted Devices: No implanted devices. PAST MEDICAL HISTORY Diagnosis Date Allergy 09/11/2013 Asthma (HCC) 09/27/2012 Excessive daytime sleepiness 08/16/2016 Fibrocystic breast disease in female 09/11/2013 Hyperlipidemia LDL goal <130 07/31/2014 Morbid obesity (HCC) Rosacea 09/27/2012 Vitamin D deficiency 08/04/2014 PAST SURGICAL HISTORY Procedure Laterality Date COLONOSCOPY SCREENING 11/28/2021 focal 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 EGD W/O BRSH SPEC VARICIES INJ 11/28/2021 Normal REMOVE TONSILS/ADENOIDS,12+ Y/O TONSILLECTOMY HX FAMILY HISTORY Problem Relation Age of Onset Asthma Mother Hyperlipidemia Mother Osteoporosis Mother Diabetes Father Psoriasis Father Arthritis Father Diabetes Maternal Grandmother Heart Maternal Grandmother tachycardia Hypertension Maternal Grandmother None Maternal Grandfather Asthma Paternal Grandmother Stroke Paternal Grandmother Colon Cancer Maternal Uncle Social History Tobacco Use Smoking status: Never Smokeless tobacco: Never Vaping Use Vaping status: Never Used Substance Use Topics Alcohol use: No Drug use: No Prior to Admission medications as of 06/19/24 0822 Medication Sig Last Dose Taking Surgical Lubricant Jelly gel For MRI Female Pelvis, MRI department to provide. Administer intra-vaginal Surgilube immediately prior the MRI procedure (total amount to patient toleranace). Yes albuterol HFA (PROVENTIL HFA, VENTOLIN HFA) 90 mcg/actuation inhaler Inhale 2 Puffs as instructed every 4 hours as needed for wheezing/shortness of breath. Yes atorvastatin (LIPITOR) 20 mg tablet Take 1 tablet by mouth daily at bedtime. For cholesterol. Yes nystatin (MYCOSTATIN) cream Apply 1 application to affected area two times a day. Yes cyclobenzaprine (FLEXERIL) 10 mg tablet Take 1 tablet by mouth three times a day as needed for muscle spasm. Yes fluticasone-vilanterol (BREO ELLIPTA) 200-25 mcg/dose inhaler Inhale 1 Inhalation as instructed once daily. Inhale one puff once daily. DO NOT CLICK OPEN UNTIL READY FOR DOSE Yes EPINEPHrine (EPIPEN) 0.3 mg/0.3 mL auto-injector 0.3 ml subcutaneous as needed for severe allergic reaction/may substitute. Yes albuterol (PROVENTIL) 2.5 mg /3 mL (0.083 %) nebulizer solution Use 3 mL via nebulizer every 6 hours as needed for wheezing/shortness of breath. Use over 5-15minutes. Yes ergocalciferol 50,000 unit capsule (VITAMIN D2, DRISDOL) Take 1 capsule by mouth one time a week. Yes multivitamin tablet Take 1 tablet by mouth once daily. Yes ascorbic acid (RANDA-C ORAL) Take 2,000 mg by mouth once daily. Yes Nebulizer 1 Each once daily. NEBULIZER FOR HOME USE. DX: asthma J 45.909 Yes No medication comments found. ALLERGIES Allergen Reactions Shellfish Derived Anaphylaxis Keflex [Cephalexin] Rash Latex Rash Prevnar 20 (Pf) [Pn* Other: See Comments Allergies. Objective PHYSICAL EXAM: General: alert and oriented (x3), healthy appearance and morbidly obese. Pertinent negatives noted - not distressed. Skin: normal color, no rash or lesions. HEENT: EOM intact and pupils equal round. Pertinent negatives noted - no carotid bruit. Cardiovascular: regular rate and rhythm, normal S1 and S2, no rub, murmurs, or gallop. Respiratory: normal breath sounds, no wheezes or crackles. No chest wall deformity or tenderness. Abdomen: soft. Pertinent negatives noted - not tender. Extremities: no deformity, no edema or tenderness, no joint swelling or clubbing. Neurological: normal cognition and motor skills. Gait normal. No weakness or sensory deficit. PAIN ASSESSMENT: VITALS: BP 118/70 Pulse 77 Temp (Src) 98.2 (Temporal) Resp 16 Ht 5' 2 (1.58m) Wt 245 lb 12.8 oz (111.5kg) SpO2 98% LMP 05/09/2024 BMI 44.95 kg/(m^2). Diagnostic tests reviewed for today's visit: Lab Value Units Date High Low HB 14.3 g/dL 12/22/2023 15.5 11.5 HCT 43.8 % 12/22/2023 46.0 36.0 WBC 8.49 k/uL 12/22/2023 11.00 3.70 PLT 495 k/uL 12/22/2023 400 150 NA 139 mmol/L 12/22/2023 144 136 K 4.1 mmol/L 12/22/2023 5.1 3.7 GLUC 86 mg/dL 12/22/2023 99 74 BUN 14 mg/dL 12/22/2023 21 7 CREAT 0.72 mg/dL 12/22/2023 0.96 0.58 PTSEC No results within date range. INR No results within date range. APTT No results within date range. ALT 7 U/L 12/22/2023 38 7 AST 14 U/L 12/22/2023 35 13 TBILI 0.2 mg/dL 12/22/2023 1.3 0.2 TSH No results within date range. Lab Value Units Date High Low HCGQT No results within date range. UHCG No results within date range. HCG, BODY* No results within date range. Lab Value Units Date High Low ABORHD No results within date range. ABSCREEN No results within date range. Hemoglobin A1C (%) Date Value 04/15/2022 5.2 02/12/2014 5.5 No results found for this or any previous visit (from the past 8760 hours). No results found for this or any previous visit (from the past 69274 hours). Instructions Given to Patient: Instructions located in the after visit summary. Patient given verbal and written preop instructions and voices comprehension and compliance. SIGNATURE: Brittany Ramirez APRN.PIPELINE INTEGRITY ENGINEER PATIENT NAME: Don Rodas DATE: June 19, 2024 TIME: 8:26 AM PAGER/CONTACT #: [facility] 06-19-2024 History and physical note Images from the original note were not included. [facility] HISTORY AND PHYSICAL EXAMINATION SERVICE DATE: 06/19/2024 SERVICE TIME: 8:50 AM PRIMARY CARE PHYSICIAN: Ariana Bhagat MD Assessment Patient has the following medical conditions which may affect lamont-operative course: Excessive daytime sleepiness Assessment: +snoring, obesity, denies LILLIANA but suspected Hyperlipidemia LDL goal <130 Assessment: c/w statin Mild intermittent asthma, uncomplicated Assessment: controlled on rx and as needed Acute upper respiratory infection Assessment: recent URI 2-3 days, nasal congestion/drainage, ear fullness, reviewed supportive care, and to notify surgeon's office if no improvement and follow up with PCP's office Thrombocytosis Assessment: hx, seen hematology in the past, dates back at least 10 years Platelet Count Date Value Ref Range Status 12/22/2023 495 (H) 150 - 400 k/uL Final Obesity, Class III, BMI 40-49.9 (morbid obesity) (HCC) Assessment: Body mass index is 44.96 kg/m . ANESTHESIA FINDINGS: Intubation History: No history of difficult intubation Significant Anesthesia Considerations: none Airway History: No history of difficult airway Aguilar Activity Status Index: METS: Climb a flight of stairs or walk up a hill (5.50 METs) DASI Score: 5.5 Patient denies any chest pain or undue shortness of breath with the above physical activity. Clinical Frailty Scale: 3. Well, with treated comorbid disease STOP-Bang Score: Snores loudly Often feels tired, fatigued, or sleepy during the daytime BMI greater than 35 kg/m^2 Has a large neck Has not been observed to stop breathing or choking/gasping during sleep Denies having high blood pressure Patient 50 years old or younger Non-male patient STOP-Bang Score: 4 [id number] Score: Age: <65 Sex: female CHF history: No Hypertension history: No Stroke/TIA/thromboembolism history: No Vascular disease history: No Diabetes history: No [id number] Score: 1 ARISCAT Score: Age: <=50 Preoperative SpO2: >=96% Respiratory infection in the last month: No Preoperative anemia: No Surgical incision: peripheral Duration of surgery: >3 hrs Emergency procedure: No ARISCAT Score: 23 I - PHYSICAL EVALUATION AIRWAY Patient intubated: No. Tracheostomy tube not present Mallampati: III. TM distance: >3 FB. Neck ROM: full ROM without neurological symptoms. Mouth opening: adequate. Short neck: no. Thick neck: yes Preciado present: no Lip Bite Test: I Microretrognathia/Micronagthia/Re cessed Chin: No DENTAL Dental findings: teeth intact. II - ANESTHESIA PLAN Anesthetic Plan: other Beta Maxwell Monitoring Plan Post Procedure Analgesic Plan Prepared for Surgery: optimally prepared for surgery, pending [see comment]. labs CONSULTS: Patient does not require consults for optimization at this time Planned Anesthetic: other anesthesia choice The Following Tests/Procedures Have Been Initiated: No orders of the defined types were placed in this encounter. REASON FOR VISIT: Don Rodas is a 33 year old female who is scheduled for Procedure(s): LAPAROSCOPIC HYSTERECTOMY TOTAL FOR UTERUS 250 G OR LESS W/REMOVAL TUBE(S) AND/OR OVARY(S) (N/A) CYSTOSCOPY (N/A) at the request of Dr. George Childs for consultation. My final recommendation will be communicated back to the requesting physician by way of shared medical record or letter. Subjective The patient has the following: COVID-19 Immunization Status Completed or No Longer Recommended Covid-19 Vaccine (Series Information) Completed 10/21/2023 Imm Admin: COVID-19 vaccine, age 12+ yr (PFIZER-BIONTECH COMIRNATY) 11/28/2022 Imm Admin: COVID-19 vaccine, age 12+ yr, 2022- season (PFIZER-BIONTECH) 10/09/2021 Imm Admin: COVID-19 vaccine, age 12+ yr, bivalent (MODERNA) Only the first 3 history entries have been loaded, but more history exists. CHIEF COMPLAINT: Pre-op exam HPI: Don Rodas is a 33 year old seen for PAC due to scheduled above surgery because of endometriosis. 05/09/2024, Dr. George Billow CHIEF COMPLAINT: Don Rodas is a 33 year old female who presents with a history of ENDOMETRIOSIS. The patient reports experiencing daily pelvic pain for several years, which has gradually worsened over time. The pain is primarily located on the left side but has also been severe on the right side, prompting two emergency room visits. During these episodes, she describes intense pressure causing her to walk bent over. The pain is constant, worsening during the day and slightly improving at night, allowing her to sleep. The pain intensifies during menstruation and is exacerbated by prolonged sitting at work, necessitating frequent standing to alleviate pelvic pressure. She denies worsening pain with eating, exercise, urination, bowel movements, or intercourse. Mild relief is noted with exercise and ibuprofen use. She has not tried hormonal treatments such as control pills, shots, or IUDs. Recent imaging revealed a 7 cm left ovarian cyst concerning for endometriosis, with the right ovary appearing normal. She expresses a desire for treatment to alleviate pain, including medication or surgical options. She describes her symptoms as constant sharp pain mainly LLQ Symptoms have been present for about 3 years ago Her pain is felt at these locations: lower abdomen Left > Right Pain radiates to lower back, upper left leg Her pain is worse during her menses. She describes her menses as very heavy with clots She is taking or tried the following for menses suppression: Nothing She reports the following bowel complaints: No . She reports the following bladder complaints: No. She has not missed work/school due to pain. She has visited the Emergency Room for the pain. She is unsure about future child bearing. She has not been a victim of emotional, physical, or sexual abuse. Aggravating factors: None. Alleviating factors: water aerobics. Nonsurgical attempts to ameliorate her pain have included: Attempted surgical treatment has been as follows: IMAGING: MRI 02/08/2024 IMPRESSION: 1. Multiple left ovarian endometriomas. No suspicious ovarian lesions. 2. Deep pelvic endometriosis tethering the left ovary and invading the torus uterinus. It also tethers the rectosigmoid without definite muscular invasion. Past Gynecologic History: Menarche: LMP: Last pap cytology: 01/18/2022 WNL History of abnormal history No History of STI: No History of PID: No Past Obstetrical History: Vaginal delivery: Section: Ectopic: Miscarriage: REVIEW OF SYSTEMS: General: No weight loss, malaise or fevers. Neurological: No history of TIA's, stroke, SLUICE TENDER tumor, impaired sensorium, hemiplegia, paraplegia or quadraplegia. No neurological symptoms or problems. Respiratory: Positive for: asthma (on rx, and as needed). Negative for: COPD, current cough, dyspnea, pneumonia within 6 weeks, tobacco use, URI < 2 weeks and obstructive sleep apnea. Cardiovascular: Positive for: hyperlipidemia (on rx) Negative for: abdominal aortic aneurysm, AICD/PPM, angina, anticoagulation therapy, arrhythmia, atrial fibrillation, CAD, chest pain, CHF, congenital heart defect, DVT/PE, hypertension, recent NV, murmur/valvular heart disease, PTCA, PVD, open heart surgery and valve surgery. GI: No history of GI symptoms or problems. No history of esophageal varices, recent ascites, or ETOH greater than 2 drinks per day. : No history of dysuria, frequency or incontinence, stones or chronic kidney disease. No difficulty urinating, nocturia > 1 time per night or hematuria. SEM MANAGER: See HPI. Negative for: vaginal bleeding and vaginal discharge. Endocrine: No history of diabetes. Has not taken steroids within the past 30 days. No history of endocrinological symptoms or problems. Hematology: No history of bleeding or clotting disorder. Patient is not taking anti-coagulation or platelet medications. No history of hematological symptoms or problems. Oncology: No history of CA metastasis, chemo within 30 days, or radiotherapy within 90 days. No history of oncological symptoms or problems. Psych: No history of psychiatric symptoms or problems. Musculoskeletal: Positive for: back pain (LBP). Skin: Negative for lesions, rash and itching. Implanted Devices: No implanted devices. PAST MEDICAL HISTORY Diagnosis Date Allergy 09/11/2013 Asthma (HCC) 09/27/2012 Excessive daytime sleepiness 08/16/2016 Fibrocystic breast disease in female 09/11/2013 Hyperlipidemia LDL goal <130 07/31/2014 Morbid obesity (HCC) Rosacea 09/27/2012 Vitamin D deficiency 08/04/2014 PAST SURGICAL HISTORY Procedure Laterality Date COLONOSCOPY SCREENING 11/28/2021 focal 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 EGD W/O BRSH SPEC VARICIES INJ 11/28/2021 Normal REMOVE TONSILS/ADENOIDS,12+ Y/O TONSILLECTOMY HX FAMILY HISTORY Problem Relation Age of Onset Asthma Mother Hyperlipidemia Mother Osteoporosis Mother Diabetes Father Psoriasis Father Arthritis Father Diabetes Maternal Grandmother Heart Maternal Grandmother tachycardia Hypertension Maternal Grandmother None Maternal Grandfather Asthma Paternal Grandmother Stroke Paternal Grandmother Colon Cancer Maternal Uncle Social History Tobacco Use Smoking status: Never Smokeless tobacco: Never Vaping Use Vaping status: Never Used Substance Use Topics Alcohol use: No Drug use: No Prior to Admission medications as of 06/19/24 0822 Medication Sig Last Dose Taking Surgical Lubricant Jelly gel For MRI Female Pelvis, MRI department to provide. Administer intra-vaginal Surgilube immediately prior the MRI procedure (total amount to patient toleranace). Yes albuterol HFA (PROVENTIL HFA, VENTOLIN HFA) 90 mcg/actuation inhaler Inhale 2 Puffs as instructed every 4 hours as needed for wheezing/shortness of breath. Yes atorvastatin (LIPITOR) 20 mg tablet Take 1 tablet by mouth daily at bedtime. For cholesterol. Yes nystatin (MYCOSTATIN) cream Apply 1 application to affected area two times a day. Yes cyclobenzaprine (FLEXERIL) 10 mg tablet Take 1 tablet by mouth three times a day as needed for muscle spasm. Yes fluticasone-vilanterol (BREO ELLIPTA) 200-25 mcg/dose inhaler Inhale 1 Inhalation as instructed once daily. Inhale one puff once daily. DO NOT CLICK OPEN UNTIL READY FOR DOSE Yes EPINEPHrine (EPIPEN) 0.3 mg/0.3 mL auto-injector 0.3 ml subcutaneous as needed for severe allergic reaction/may substitute. Yes albuterol (PROVENTIL) 2.5 mg /3 mL (0.083 %) nebulizer solution Use 3 mL via nebulizer every 6 hours as needed for wheezing/shortness of breath. Use over 5-15minutes. Yes ergocalciferol 50,000 unit capsule (VITAMIN D2, DRISDOL) Take 1 capsule by mouth one time a week. Yes multivitamin tablet Take 1 tablet by mouth once daily. Yes ascorbic acid (RANDA-C ORAL) Take 2,000 mg by mouth once daily. Yes Nebulizer 1 Each once daily. NEBULIZER FOR HOME USE. DX: asthma J 45.509 Yes No medication comments found. ALLERGIES Allergen Reactions Shellfish Derived Anaphylaxis Keflex [Cephalexin] Rash Latex Rash Prevnar 20 (Pf) [Pn* Other: See Comments Allergies. Objective PHYSICAL EXAM: General: alert and oriented (x3), healthy appearance and morbidly obese. Pertinent negatives noted - not distressed. Skin: normal color, no rash or lesions. HEENT: EOM intact and pupils equal round. Pertinent negatives noted - no carotid bruit. Cardiovascular: regular rate and rhythm, normal S1 and S2, no rub, murmurs, or gallop. Respiratory: normal breath sounds, no wheezes or crackles. No chest wall deformity or tenderness. Abdomen: soft. Pertinent negatives noted - not tender. Extremities: no deformity, no edema or tenderness, no joint swelling or clubbing. Neurological: normal cognition and motor skills. Gait normal. No weakness or sensory deficit. PAIN ASSESSMENT: VITALS: BP 118/70 Pulse 77 Temp (Src) 98.2 (Temporal) Resp 16 Ht 5' 2 (1.58m) Wt 245 lb 12.8 oz (111.5kg) SpO2 98% LMP 05/09/2024 BMI 44.95 kg/(m^2). Diagnostic tests reviewed for today's visit: Lab Value Units Date High Low HB 14.3 g/dL 12/22/2023 15.5 11.5 HCT 43.8 % 12/22/2023 46.0 36.0 WBC 8.49 k/uL 12/22/2023 11.00 3.70 PLT 495 k/uL 12/22/2023 400 150 NA 139 mmol/L 12/22/2023 144 136 K 4.1 mmol/L 12/22/2023 5.1 3.7 GLUC 86 mg/dL 12/22/2023 99 74 BUN 14 mg/dL 12/22/2023 21 7 CREAT 0.72 mg/dL 12/22/2023 0.96 0.58 PTSEC No results within date range. INR No results within date range. APTT No results within date range. ALT 7 U/L 12/22/2023 38 7 AST 14 U/L 12/22/2023 35 13 TBILI 0.2 mg/dL 12/22/2023 1.3 0.2 TSH No results within date range. Lab Value Units Date High Low HCGQT No results within date range. UHCG No results within date range. HCG, BODY* No results within date range. Lab Value Units Date High Low ABORHD No results within date range. ABSCREEN No results within date range. Hemoglobin A1C (%) Date Value 04/15/2022 5.2 02/12/2014 5.5 No results found for this or any previous visit (from the past 8760 hours). No results found for this or any previous visit (from the past 92530 hours). Instructions Given to Patient: Instructions located in the after visit summary. Patient given verbal and written preop instructions and voices comprehension and compliance. SIGNATURE: Brittany Ramirez APRN.CNP PATIENT NAME: Don Rodas DATE: June 19, 2024 TIME: 8:26 AM PAGER/CONTACT #: documented in this encounter [facility] 06-19-2024 Instructions Brittany Ramirez APRN.CNP - 06/19/2024 8:22 AM EDT Images from the original note were not included. [facility] PATIENT PREOPERATIVE INSTRUCTIONS George Childs DO has scheduled you for your procedure at this surgery center: [facility] [place] Scheduling Office: [phone] --[address] [place] [address]. Please read below carefully for your personalized instructions. Dietary Restrictions: - No solid food after midnight. - You may have 12 ounces of clear liquids (water, clear juices such as apple juice or gatorade, carbonated beverages, clear tea, black coffee, jello) until 2 hours before scheduled arrival at facility. No red/purple coloring and no creamer/sugar Medications: Unless instructed differently below, stay on all of your medications until your surgery. If you start any new medications after today's visit, please contact your surgeon. Pre-Surgery Med Instructions Medication Instructions Surgical Lubricant Jelly gel albuterol HFA (PROVENTIL HFA, VENTOLIN HFA) 90 mcg/actuation inhaler Continue as needed atorvastatin (LIPITOR) 20 mg tablet If you normally take this medication in the morning, take the morning of surgery. nystatin (MYCOSTATIN) cream Do not take the day of surgery cyclobenzaprine (FLEXERIL) 10 mg tablet Continue as needed fluticasone-vilanterol (BREO ELLIPTA) 200-25 mcg/dose inhaler If you normally take this medication in the morning, take the morning of surgery. EPINEPHrine (EPIPEN) 0.3 mg/0.3 mL auto-injector Continue as needed albuterol (PROVENTIL) 2.5 mg /3 mL (0.083 %) nebulizer solution Continue as needed ergocalciferol 50,000 unit capsule (VITAMIN D2, DRISDOL) Hold 7 days before surgery. Last dose 06/24/2024. multivitamin tablet Hold 7 days before surgery. Last dose 06/24/2024. ascorbic acid (RANDA-C ORAL) Hold 7 days before surgery. Last dose 06/24/2024. Nebulizer If you start any new medications after today's visit, please contact the surgeon's office. If you are currently using a [id number] injectable or oral medication for diabetes or weight loss such as Dulaglutide (Trulicity), Exenatide (Byetta, Bydureon), Liraglutide (Victoza, Saxenda), Semaglutide (Ozempic, Wegovy, Rybelsus), or Tirzepatide (Mounjaro), the medicine should be stopped at least 7 days before surgery. These medicines can cause food to remain in your stomach for a very long time and increase the risks from surgery and anesthesia. Not stopping the medication for a long enough time may result in your surgery being rescheduled. Blood Thinning Medications: - Stop NSAIDS (Ibuprofen, Advil, Aleve, Motrin, Celebrex, Mobic, etc.) 7 days before surgery, as directed by your surgeon. - Stop Aspirin 7 days before surgery, as directed by your surgeon. - Stop ALL herbal and dietary supplements 7 days before surgery. - You may take Tylenol (Acetaminophen) or any of your pain medications that do not contain aspirin or NSAIDS as needed. Important Reminders: - Candy, mints, and tobacco products are NOT permitted the morning of surgery. - Hearing aids, dentures and glasses may be worn the morning of surgery. - NO jewelry, body piercings, makeup, hairpins or contacts are to be worn the day of surgery. If you develop symptoms such as a fever, cold, or flu, or have other changes to your health within TWO DAYS of scheduled surgery or the morning of surgery, please contact the surgery center above. Personal Belongings: -Please have photo ID and insurance cards. -If you do not have a copy of advance directives on file with us, please bring a copy with you on the day of surgery. - Leave ALL valuables and money at home or with family members. - Please bring high-quality footwear, such as sneakers, to the hospital for ambulating post-surgery. For Outpatient Procedures: - YOU MUST HAVE A RESPONSIBLE WILDLIFE AND GAME PROTECTOR TAKE YOU HOME. A EXPLOSIVE OPERATOR SUPERVISOR OR CAD DESIGNER CANNOT BE MADE A RESPONSIBLE WILDLIFE AND GAME PROTECTOR. - We recommend that a responsible person stays with you overnight to take care of you. - You cannot stay in a hotel alone after outpatient surgery. You will not be permitted to have your surgery, if you do not have someone to take care of you. Arrival Time for Surgery: - To obtain your arrival time for surgery, call your physician's office the day before your surgery. - If you have received different instructions about finding out your arrival time from your surgeon, please follow those instructions. - If your surgery is scheduled for Sunday, call the Sunday before. Your surgeon s care team coordinator scheduler will tell you what time to call the office. - If you have not reached the departmental care team coordinator scheduler by 5 P.M., call [phone] after 5 P.M. the day before your surgery. Please be aware that emergency situations arise, which may delay or change your surgical time. If this happens, we will notify you as soon as possible and regret any inconvenience. If you already have an Advance Directive, please fax a copy to [phone] or email to for it to be added to your chart. If you do not have an Advance Directive, you can find the appropriate form and more information at [email or web address]. We recommend that you complete the Advance Directive form found on the website and bring it with you the day of your surgery. It can be witnessed and scanned into your chart that day. Brittany Ramirez APRN.MARIO documented in this encounter [facility] 05-16-2024 Note HNO ID: [id number] Author: GERRI MASTERSON APRN.CNP Service: ? Author Type: Nurse Practitioner Type: Progress Notes Filed: 05/16/2024 12:10 Note Text: Assessment AND Plan Preoperative examination Orders: TYPE AND SCREEN,30 DAY; Future COMPLETE BLOOD COUNT; Future CONFIRM BLOOD TYPE; Future Gerri Masterson APRN.CNP May 16, 2024 12:10 PM [facility] 05-16-2024 History of Present illness Narrative Assessment & Plan Preoperative examination Orders: TYPE AND SCREEN,30 DAY; Future COMPLETE BLOOD COUNT; Future CONFIRM BLOOD TYPE; Future Gerri Masterson APRN.CNP May 16, 2024 12:10 PM documented in this encounter [facility] 05-15-2024 Telephone encounter Note Pt called to reschedule surgery, pt asked for end of June, pt accepted 07/01/24 surgery date at , scheduled pre/post op appts and informed pt teaching appt does not appear on MyChart [facility] 05-15-2024 Miscellaneous Notes Pt called to reschedule surgery, pt asked for end of June, pt accepted 07/01/24 surgery date at , scheduled pre/post op appts and informed pt teaching appt does not appear on MyChart Called patient and lvm to call back to schedule surgery documented in this encounter [facility] 05-12-2024 Telephone encounter Note Called patient and lvm to call back to schedule surgery [facility] 05-09-2024 Instructions George Childs, - 05/09/2024 2:25 PM EDT Images from the original note were not included. We discussed your diagnosis of endometriosis: - Your MRI shows a 7 cm endometriosis cyst on your left ovary. The right ovary appears normal. The cyst is causing adhesions (sticking) between the uterus and the colon, but there is no evidence of invasion into the colon. No other significant areas of endometriosis were identified on the MRI, though it is possible there are additional areas not visible on imaging. - Endometriosis can cause pain with periods, urination, bowel movements, and intercourse. It can also lead to challenges with fertility by affecting the ovaries or blocking the fallopian tubes. We discussed treatment options for your endometriosis: - Medications can help reduce inflammation and may slightly shrink the cyst, but they will not eliminate the cyst or adhesions. - Surgery is recommended to address the cyst and adhesions. We discussed the following surgical options: - Option 1: Removal of the cyst and any visible endometriosis. This may provide symptom relief but carries a higher risk of recurrence because the endometriosis behind the uterus cannot be fully removed. - Option 2: Removal of the left ovary and fallopian tube, along with any visible endometriosis. This reduces the risk of recurrence while preserving your right ovary, uterus, and fertility. - Option 3: Partial hysterectomy (removal of the uterus, cervix, and fallopian tubes) while preserving one ovary. This offers the best chance of long-term symptom relief and prevention of recurrence but would eliminate the possibility of carrying a . - You have decided to proceed with surgery to remove the uterus, cervix, and fallopian tubes while preserving one ovary (partial hysterectomy). This will prevent menopause and provide the best chance of symptom relief and long-term management of your condition. We discussed the surgical process and recovery: - The surgery will be performed laparoscopically (minimally invasive) under general anesthesia. Small incisions will be made in your abdomen. - You will go home the same day as the surgery. - Recovery instructions: - No heavy lifting (over 10 pounds) for 4 weeks. - No vaginal activity (e.g., intercourse, tampons) for 8 weeks to prevent infection. - You may return to light activities, such as walking, as tolerated. Avoid swimming or pool use for 4 weeks. - You may return to work after 2-4 weeks, depending on how you feel. 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 - You can gradually return to gym activities after 4 weeks. - Use a stool softener after surgery to prevent constipation, especially if taking pain medications. Next steps: - You will be contacted by the spares scheduler early next week to finalize the date and location of your surgery. It will likely be performed at [facility] or [place]. - Stop any medications as directed by the pre-anesthesia team before surgery. They will provide specific instructions once the surgery is scheduled. - Continue maintaining a healthy lifestyle, including regular exercise and a balanced diet, as this will support your recovery. If you have additional questions or concerns before surgery, please write them down so we can address them during your next visit or pre-surgical consultation. Please visit the following website for the [facility] surgery guide. [email or web address] MINIMALLY INVASIVE GYNECOLOGIC SURGERY (MIGS)/BENIGN GYNECOLOGY CONTACTS: Surgeons: Dr. George Childs Dr. Felipa Olivares Dr. Jessica Mcdowell Dr. Kelley Chandler Dr. Renetta Wesley [place]: Dr. Roxann Denson Dr. Becky Collado Dr. Lena William Nurse Practitioners: Gerri Masterson, RESIDENTIAL PROGRAM COORDINATOR.PIPELINE INTEGRITY ENGINEER Celsa James, RESIDENTIAL PROGRAM COORDINATOR.PIPELINE INTEGRITY ENGINEER Sarina Stewart RESIDENTIAL PROGRAM COORDINATOR.PIPELINE INTEGRITY ENGINEER Madonna Pratt, RESIDENTIAL PROGRAM COORDINATOR.PIPELINE INTEGRITY ENGINEER Laura Schulte, RESIDENTIAL PROGRAM COORDINATOR.PIPELINE INTEGRITY ENGINEER Surgery Scheduling Office: Call the day before surgery after 2pm for your surgery arrival time After hours phone number: or toll free Ask the rig operator to page the hand endband cutter construction management assistant.' Business hours are Sunday - Bill from 8:00am - 4:30pm. We are closed on weekends and major holidays. Surgery Locations: [facility] [address] [place], [place] [address] [facility] [address] [place], [place] [address] [facility] [address] [place], [place] [address] [facility] [address] [place], [place] [address] PATIENT SURGICAL CHECKLIST - NEXT STEPS You and your provider have determined that you are a surgical candidate. Here are the next steps in the process to you being scheduled for your surgery: Your provider will submit the case to the schedulers. You should receive a call within 5 business days from our scheduling team. (If you do not receive a call within 5 days - then please call [phone]) Once contacted by the scheduling team, you will work with the care team coordinator scheduler to select a surgical OR date that works for both you and the provider The care team coordinator scheduler will set up all of your Pre-Op appointments, which may include all or some of the following: - Covid Testing - Pre-Op consent appointment w/ your provider - Pre-Op teaching appointment - *can be done virtually - Labs - Admit Interview - OnePACC (Anesthesia Clearance) - And any other testing that the provider orders for prior to surgery You will receive a call from the spares scheduler the day prior to your surgery as to when and where to arrive on the day of your scheduled surgery QUESTIONS: If you have any clinical questions - Please contact your provider s office directly. If you have any scheduling questions - Please contact the surgery scheduling office at [phone] THANK YOU for choosing the [facility] [place] We wish you a speedy recovery and continued good health! MINIMALLY INVASIVE HYSTERECTOMY POSTOPERATIVE INSTRUCTIONS ACTIVITY * No heavy lifting/pushing/pulling for 4-6 weeks. Do not lift anything more than 10 lbs (such as laundry, groceries, children, pets), vacuum, push heavy doors or grocery carts, etc, for 4-6 weeks. * You may climb stairs as tolerated. * Do not put anything in the vagina for at least 8 weeks after surgery unless otherwise instructed by your doctor (including tampons, douching, sexual intercourse, etc). * No driving for 1 week after surgery and not while taking narcotic pain medication. Drive defensively when you are ready. * Avoid sitting or lying in bed for more than 2 hours at a time while you are awake to reduce your risk of blood clots. * You may return to work when you are ready as long as you do not lift more than 20 pounds for 4-6 weeks. 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 You may return to work in 2-4 weeks if your job requires a lot of movement. Please contact your doctor if you need any return to work letters or medical leave paperwork to be completed. *You may resume exercise/running around 4-6 weeks postop WOUND CARE * If you had a laparoscopic or robotic hysterectomy, you will have small incisions on your abdomen. There will be dissolvable stitches under your skin that do not need to be removed. If you have a piece of gauze with a clear bandage over your belly button, please remove that the day after surgery when you shower. If you have steri-strips (paper tape) on the incisions, these may be removed in about 1-2 weeks. It is OK to remove them if they are falling off. If skin glue is present, leave in place for at least 2 weeks. * Shower daily after surgery. Clean your incision with mild antibacterial soap and water. Pat your incision dry with a clean towel. No tub baths or swimming pools for 6 weeks or until wound is completely healed. * No ointments or antibacterial creams are required for incisions. Do NOT use cleansing agents like alcohol or hydrogen peroxide. * Wash your hands frequently, especially before touching your incision or changing any dressings. PAIN MANAGEMENT * Take your oral pain medication as needed. * Alternate Tylenol and ibuprofen/Motrin (if you are eligible). Each of these medications can be taken every six hours. Try to stagger them so that you are taking something for pain every three hours (ex. Take Motrin at 12:00, Tylenol at 3:00, Motrin at 6:00, etc.) to maximize pain relief. You should be taking 600mg of ibuprofen every 6 hours. You should be taking 650mg of tylenol every 6 hours. You should take every 6 hours with staggering and alternating. For example. 9am - ibuprofen 12pm - tylenol 3pm - ibuprofen 6pm - tylenol 9pm - ibuprofen 12am - tylenol 3am - ibuprofen 6am - tylenol Studies show this is as effective as narcotics for pain control without the side effects. Dosages * The maximum dose of Tylenol is 3000 mg in 24 hours, the maximum dose of Motrin/ibuprofen is 2400mg in 24 hours * Some pain medications can cause constipation. We recommend a stool softener (i.e. Senna) while you take these medications. * You may also take milk of magnesia or Miralax for constipation as directed on the bottle. * There is a risk for addiction with narcotic pain medication, so take with caution and do not take more than the recommended amount. * Please be sure to dispose of leftover pain medication after you have recovered. You may dispose of unused narcotic medications in the trash with an unpleasant substance such as coffee grounds or cat litter or you can turn them in to a designated law enforcement/pharmacy narcotic box. You can also check FDA.gov to assess which medications can be safely flushed down the toilet. * There are locations to dispose of unused medications at three [facility] locations: [facility] pharmacy, [facility] pharmacy, and the [facility] (inside the parking garage on the first floor). WHAT TO EXPECT AT HOME * Recovery from surgery is generally 2-4 weeks, but sometimes longer for more strenuous activity. It is normal to be very tired during this time. * It is normal to have some drainage or a small amount of vaginal bleeding after surgery that would require the use of a light pantiliner. This discharge may last up to 6 weeks. The bleeding and discharge should be light and should have no odor. * You may experience gas pain, abdominal swelling, or shoulder pain for 24-72 hours after surgery. This is from the carbon dioxide gas put into your abdomen to better visualize your organs. A warm shower, heating pad, and/or walking may help. WHEN TO CALL YOUR DOCTOR: * Fever (>100.4 F or 38.0 C) or chills. * Incision problems such as redness, warmth, swelling, or foul smelling drainage. * Severe nausea or persistent vomiting. * Bright red vaginal bleeding (soaking >1 pad/hour) or foul smelling vaginal drainage. * IT IS NORMAL TO HAVE A MINIMAL AMOUNT OF VAGINAL SPOTTING OR VAGINAL DISCHARGE FOR SEVERAL WEEKS * Severe pain not relieved with pain medication. * Pain and swelling in your legs, especially if it is only on one side. * Pain with urination, cloudy urine, or foul smelling urine. * Severe redness/irritation at sites where adhesive bandages were applied. * Or if you have any other problems or questions. FREQUENTLY ASKED QUESTIONS/CONCERNS: Constipation Constipation is common and it is normal to not have a bowel movement for up to one week after surgery. You should still be passing gas despite constipation and should be able to tolerate both liquid and solid food without nausea or vomiting. Concerning symptoms would be constipation without gas, with fever, or nausea/vomiting and inability to eat. Call your doctor if these symptoms occur. Over the counter stool softeners including Senna twice daily and Miralax up to twice daily can help with constipation. 1. Senna (1 capsule) two times a day 2. Miralax (polyethylene glycol) 17 g (1 measured capful or 1 packet) once a day. If you have not had a bowel movement 3 days after surgery, you may take the Miralax two times a day. If you have any discomfort because of the need to have a bowel movement, you may add milk of magnesia or magnesium citrate (available at your local pharmacy without a prescription) at any time. Do not take milk of magnesia or magnesium citrate if you have kidney failure. If you have loose or watery stools, stop taking the medications. Call your doctor s office if you have questions. Drainage from incisions Clear/pink drainage or a minimal amount of bleeding from incisions can be normal after laparoscopic surgery. Concerning drainage that is persistent, thick/cloudy, or foul smelling can be an indication of infection and should prompt you to call your doctor. Post-operative pain Pain after surgery is a challenging part of the healing process. Pain may be present for weeks but should gradually get better. Increasing pain or pain that is unbearable warrants evaluation by your doctor or in the emergency department. By state law we cannot immediately provide narcotic pain medication over the phone. Stitches If 2 weeks have passed and you have a visible stitch at a laparoscopic incision site it is OK for you to cut it to remove it. CALL 911 OR GO TO THE EMERGENCY ROOM IF YOU HAVE: Any shortness of breath, difficulty breathing, or chest pain. IF YOU FEEL YOU NEED TO GO TO THE EMERGENCY DEPARTMENT POST OPERATIVELY, WE RECOMMEND THE MAIN [facility]AMPUS EMERGENCY DEPARTMENT FOR CONTINUITY OF CARE AND THE BEST ACCESS TO ONE OF THE SURGEONS ON OUR TEAM. Address: [facility] [address] [place] [id number] documented in this encounter [facility] 05-09-2024 History of Present illness Narrative Images from the original note were not included. [facility] [place] SECTION FOR MINIMALLY INVASIVE GYNECOLOGIC SURGERY OUTPATIENT VISIT DATE OUTPATIENT VISIT TYPE NEW Consultation requested by Claudia Langston MD for an opinion regarding Don Rodas, and my final recommendations will be communicated back to the requesting physician by way of shared medical record or letter via US mail. DATE OF SERVICE: 05/09/2024 The patient is a 33-year-old female presenting with chronic pelvic pain. CHIEF COMPLAINT: Don Rodas is a 33 year old female who presents with a history of ENDOMETRIOSIS. The patient reports experiencing daily pelvic pain for several years, which has gradually worsened over time. The pain is primarily located on the left side but has also been severe on the right side, prompting two emergency room visits. During these episodes, she describes intense pressure causing her to walk bent over. The pain is constant, worsening during the day and slightly improving at night, allowing her to sleep. The pain intensifies during menstruation and is exacerbated by prolonged sitting at work, necessitating frequent standing to alleviate pelvic pressure. She denies worsening pain with eating, exercise, urination, bowel movements, or intercourse. Mild relief is noted with exercise and ibuprofen use. She has not tried hormonal treatments such as control pills, shots, or IUDs. Recent imaging revealed a 7 cm left ovarian cyst concerning for endometriosis, with the right ovary appearing normal. She expresses a desire for treatment to alleviate pain, including medication or surgical options. She describes her symptoms as constant sharp pain mainly LLQ Symptoms have been present for about 3 years ago Her pain is felt at these locations: lower abdomen Left > Right Pain radiates to lower back, upper left leg Her pain is worse during her menses. She describes her menses as very heavy with clots She is taking or tried the following for menses suppression: Nothing She reports the following bowel complaints: No . She reports the following bladder complaints: No. She has not missed work/school due to pain. She has visited the Emergency Room for the pain. She is unsure about future child bearing. She has not been a victim of emotional, physical, or sexual abuse. Aggravating factors: None. Alleviating factors: water aerobics. Nonsurgical attempts to ameliorate her pain have included: Attempted surgical treatment has been as follows: IMAGING: MRI 02/08/2024 IMPRESSION: 1. Multiple left ovarian endometriomas. No suspicious ovarian lesions. 2. Deep pelvic endometriosis tethering the left ovary and invading the torus uterinus. It also tethers the rectosigmoid without definite muscular invasion. Past Gynecologic History: Menarche: LMP: Last pap cytology: 01/18/2022 WNL History of abnormal history No History of STI: No History of PID: No Past Obstetrical History: Vaginal delivery: Section: Ectopic: Miscarriage: Past Medical History: PAST MEDICAL HISTORY Diagnosis Date Allergy 09/11/2013 Asthma 09/27/2012 Excessive daytime sleepiness 08/16/2016 Fibrocystic breast disease in female 09/11/2013 Hyperlipidemia LDL goal <130 07/31/2014 Morbid obesity (HCC) Rosacea 09/27/2012 Vitamin D deficiency 08/04/2014 Past Surgical History: PAST SURGICAL HISTORY Procedure Laterality Date COLONOSCOPY SCREENING 11/28/2021 focal 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 EGD W/O BRSH SPEC VARICIES INJ 11/28/2021 Normal REMOVE TONSILS/ADENOIDS,12+ Y/O TONSILLECTOMY HX Family History: FAMILY HISTORY Problem Relation Age of Onset Asthma Mother Hyperlipidemia Mother Osteoporosis Mother Diabetes Father Psoriasis Father Arthritis Father Diabetes Maternal Grandmother Heart Maternal Grandmother tachycardia Hypertension Maternal Grandmother None Maternal Grandfather Asthma Paternal Grandmother Stroke Paternal Grandmother Colon Cancer Maternal Uncle Social History: Social History Tobacco Use Smoking status: Never Smokeless tobacco: Never Vaping Use Vaping status: Never Used Substance Use Topics Alcohol use: No Drug use: No Current Outpatient Medications Medication Sig albuterol HFA (PROVENTIL HFA, VENTOLIN HFA) 90 mcg/actuation inhaler Inhale 2 Puffs as instructed every 4 hours as needed for wheezing/shortness of breath. atorvastatin (LIPITOR) 20 mg tablet Take 1 tablet by mouth daily at bedtime. For cholesterol. tirzepatide, weight loss (ZEPBOUND) 7.5 mg/0.5 mL pen injector Inject 7.5 mg subcutaneously one time a week. nystatin (MYCOSTATIN) cream Apply 1 application to affected area two times a day. cyclobenzaprine (FLEXERIL) 10 mg tablet Take 1 tablet by mouth three times a day as needed for muscle spasm. fluticasone-vilanterol (BREO ELLIPTA) 200-25 mcg/dose inhaler Inhale 1 Inhalation as instructed once daily. Inhale one puff once daily. DO NOT CLICK OPEN UNTIL READY FOR DOSE albuterol (PROVENTIL) 2.5 mg /3 mL (0.083 %) nebulizer solution Use 3 mL via nebulizer every 6 hours as needed for wheezing/shortness of breath. Use over 5-15minutes. ergocalciferol 50,000 unit capsule (VITAMIN D2, DRISDOL) Take 1 capsule by mouth one time a week. multivitamin tablet Take 1 tablet by mouth once daily. ascorbic acid (RANDA-C ORAL) Take 2,000 mg by mouth once daily. Nebulizer 1 Each once daily. NEBULIZER FOR HOME USE. DX: asthma J 45.909 Surgical Lubricant Jelly gel For MRI Female Pelvis, MRI department to provide. Administer intra-vaginal Surgilube immediately prior the MRI procedure (total amount to patient toleranace). EPINEPHrine (EPIPEN) 0.3 mg/0.3 mL auto-injector 0.3 ml subcutaneous as needed for severe allergic reaction/may substitute. clotrimazole-betamethasone (LOTRISONE) cream APPLY TO AFFECTED AREA TWICE A DAY (Patient not taking: Reported on 05/09/2024) No current facility-administered medications for this visit. Allergies As of Date: 05/09/2024 Allergen Noted Reaction SHELLFISH DERIVED 09/27/2012 Anaphylaxis KEFLEX [CEPHALEXIN] 11/22/2013 Rash LATEX 01/21/2016 Rash PREVNAR 20 (PF) [PNEUMOC 20-GUNJAN C*08/24/2022 Other: See Comments Fully Assessed 05/09/2024 Meredith Robertson RN May 09, 2024 11:25 AM REVIEW OF SYSTEMS: Gastrointestinal: (+) pain with bowel movements Genitourinary: (+) daily left-sided pelvic pain, (+) pelvic pressure, (+) pain with urination, (+) pain with intercourse, (+) pain worsens with periods PHYSICAL EXAMINATION: Vital Signs: 05/09/24 1118 BP: 105/71 Pulse: 61 Weight: 109.3 kg (241 lb) Height: 157.5 cm (5' 2) Body mass index is 44.08 kg/m . General Appearance: WDWN, NAD Psychiatric: Normal orientation, mood and affect Neck: Thyroid normal, no masses Breasts: Deferred Skin:No rashes, lesions, or ulcers Lymph: Normal groin C/V: Normal heart sounds, no murmurs or external edema Lungs: Respiratory effort normal. Lungs clear bilaterally. Abdomen: Benign, soft, non-tender, no hernia, masses, or lymphadenpathy ASSESSMENT & PLAN: 1. Endometriosis of ovary (N80.109) Pelvic pain (R10.2) Chronic pelvic pain with daily discomfort, exacerbated by menstruation, prolonged sitting, and bowel movements. MRI reveals a 7 cm endometriotic cyst on the left ovary and adhesions behind the uterus involving the colon.Patient experiences daily pain, worse during the day and slightly relieved at night. Pain is primarily left-sided but has also been right-sided. No significant impact on quality of life reported, but symptoms have worsened over time. No prior use of hormonal treatments such as control pills, shots, or IUDs. Patient is not currently planning to have children but is not ready to completely give up the option. - Discussed the nature of endometriosis, including its potential to cause pain and infertility. - Reviewed MRI findings showing a 7 cm endometriotic cyst on the left ovary and adhesions behind the uterus involving the colon. - Discussed treatment options, including hormonal therapy and surgical intervention. - Recommended laparoscopic surgery to remove the cyst and any visible endometriosis. We discussed proceeding with a total laparoscopic hysterectomy, bilateral salpingectomy, left oophorectomy, excision of endometriosis and cystoscopy. We discussed the risks of the procedure including risks of bleeding, infection and injury to surrounding organ structures such as bowel, bladder and major vessels. - Explained the risks and benefits of surgery, including the potential for symptom relief and reduced risk of recurrence. - Discussed recovery expectations: outpatient procedure with small incisions, 4-week recovery period with restrictions on heavy lifting and vaginal activity. - care team coordinator scheduler will contact the patient early next week to arrange a date. - Encouraged maintaining a healthy lifestyle, including exercise and a balanced diet, to aid recovery. George Childs DO Section of Minimally Invasive Gynecologic Surgery May 08, 2024 2:15 PM documented in this encounter [facility] 05-09-2024 Note HNO ID: [id number] Author: GEORGE CHILDS DO Service: ? Author Type: Physician Type: Progress Notes Filed: 05/09/2024 14:26 Note Text: [facility] [place] SECTION FOR MINIMALLY INVASIVE GYNECOLOGIC SURGERY OUTPATIENT VISIT DATE OUTPATIENT VISIT TYPE NEW Consultation requested by Claudia Langston MD for an opinion regarding Don Rodas, and my final recommendations will be communicated back to the requesting physician by way of shared medical record or letter via US mail. DATE OF SERVICE: 05/09/2024 The patient is a 33-year-old female presenting with chronic pelvic pain. CHIEF COMPLAINT: Don Rodas is a 33 year old female who presents with a history of ENDOMETRIOSIS. The patient reports experiencing daily pelvic pain for several years, which has gradually worsened over time. The pain is primarily located on the left side but has also been severe on the right side, prompting two emergency room visits. During these episodes, she describes intense pressure causing her to walk bent over. The pain is constant, worsening during the day and slightly improving at night, allowing her to sleep. The pain intensifies during menstruation and is exacerbated by prolonged sitting at work, necessitating frequent standing to alleviate pelvic pressure. She denies worsening pain with eating, exercise, urination, bowel movements, or intercourse. Mild relief is noted with exercise and ibuprofen use. She has not tried hormonal treatments such as control pills, shots, or IUDs. Recent imaging revealed a 7 cm left ovarian cyst concerning for endometriosis, with the right ovary appearing normal. She expresses a desire for treatment to alleviate pain, including medication or surgical options. She describes her symptoms as constant sharp pain mainly LLQ Symptoms have been present for about 3 years ago Her pain is felt at these locations: lower abdomen Left > Right Pain radiates to lower back, upper left leg Her pain is worse during her menses. She describes her menses as very heavy with clots She is taking or tried the following for menses suppression: Nothing She reports the following bowel complaints: No . She reports the following bladder complaints: No. She has not missed work/school due to pain. She has visited the Emergency Room for the pain. She is unsure about future child bearing. She has not been a victim of emotional, physical, or sexual abuse. Aggravating factors: None. Alleviating factors: water aerobics. Nonsurgical attempts to ameliorate her pain have included: Attempted surgical treatment has been as follows: IMAGING: MRI 02/08/2024 IMPRESSION: 1. Multiple left ovarian endometriomas. No suspicious ovarian lesions. 2. Deep pelvic endometriosis tethering the left ovary and invading the torus uterinus. It also tethers the rectosigmoid without definite muscular invasion. Past Gynecologic History: Menarche: LMP: Last pap cytology: 01/18/2022 WNL History of abnormal history No History of STI: No History of PID: No Past Obstetrical History: Vaginal delivery: Section: Ectopic: Miscarriage: Past Medical History: PAST MEDICAL HISTORY Diagnosis Date Allergy 09/11/2013 Asthma 09/27/2012 Excessive daytime sleepiness 08/16/2016 Fibrocystic breast disease in female 09/11/2013 Hyperlipidemia LDL goal <130 07/31/2014 Morbid obesity (HCC) Rosacea 09/27/2012 Vitamin D deficiency 08/04/2014 Past Surgical History: PAST SURGICAL HISTORY Procedure Laterality Date COLONOSCOPY SCREENING 11/28/2021 focal 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 EGD W/O BRSH SPEC VARICIES INJ 11/28/2021 Normal REMOVE TONSILS/ADENOIDS,12+ Y/O TONSILLECTOMY HX Family History: FAMILY HISTORY Problem Relation Age of Onset Asthma Mother Hyperlipidemia Mother Osteoporosis Mother Diabetes Father Psoriasis Father Arthritis Father Diabetes Maternal Grandmother Heart Maternal Grandmother tachycardia Hypertension Maternal Grandmother None Maternal Grandfather Asthma Paternal Grandmother Stroke Paternal Grandmother Colon Cancer Maternal Uncle Social History: Social History Tobacco Use Smoking status: Never Smokeless tobacco: Never Vaping Use Vaping status: Never Used Substance Use Topics Alcohol use: No Drug use: No Current Outpatient Medications Medication Sig albuterol HFA (PROVENTIL HFA, VENTOLIN HFA) 90 mcg/actuation inhaler Inhale 2 Puffs as instructed every 4 hours as needed for wheezing/shortness of breath. atorvastatin (LIPITOR) 20 mg tablet Take 1 tablet by mouth daily at bedtime. For cholesterol. tirzepatide, weight loss (ZEPBOUND) 7.5 mg/0.5 mL pen injector Inject 7.5 mg subcutaneously one time a week. nystatin (MYCOSTATIN) cream Apply 1 application to affected area two times a day. cyclobenzaprine (FLEXERIL) 10 mg tablet Take 1 tablet by mouth three times a day (more content not included)... [facility] 02-28-2024 Telephone encounter Note Spoke to the patient and let her know that her chart has been review by our provider and she needs to keep her appt with [facility] because she doesn't need to come to [facility]/Onc. Patient was upset but gave verbal understanding. Selena Siegel 02/28/24 [facility] 02-28-2024 Miscellaneous Notes Spoke to the patient and let her know that her chart has been review by our provider and she needs to keep her appt with [facility] because she doesn't need to come to [facility]/Onc. Patient was upset but gave verbal understanding. Selena Siegel 02/28/24 documented in this encounter [facility] 02-14-2024 Telephone encounter Note Notified patient. [facility] 02-14-2024 Miscellaneous Notes Notified patient. Let her know it looks more like endometriosis. I am going forward it to her hand endband cutter to review Pt calling for MRI results. Please advise pt. Edyta Covarrubias LPN documented in this encounter [facility] 02-14-2024 Telephone encounter Note Let her know it looks more like endometriosis. I am going forward it to her hand endband cutter to review [facility] 02-14-2024 Telephone encounter Note Pt calling for MRI results. Please advise pt. Edyta Covarrubias LPN [facility] 02-13-2024 Telephone encounter Note Appointment changed to 02/29/24 at 2pm due to provider being in a meeting. Patient doesn't know if she'll make it because her aunt drives her. I told her to call as back to let us know. Patient repeatedly asked why her appointment was changed and I stated due to provider being in a meeting. Patient hung up on me. Amrit Gomes MA [facility] 02-13-2024 Miscellaneous Notes Appointment changed to 02/29/24 at 2pm due to provider being in a meeting. Patient doesn't know if she'll make it because her aunt drives her. I told her to call as back to let us know. Patient repeatedly asked why her appointment was changed and I stated due to provider being in a meeting. Patient hung up on me. Amrit Gomes MA documented in this encounter [facility] 02-08-2024 History of Present illness Narrative Radiology Service Progress Note DATE OF SERVICE: February 08, 2024 TIME: 3:08 PM PATIENT IDENTITY VERIFICATION COMPLETED USING TWO (2) STANDARD IDENTIFIERS: Name and Date of confirmed by patient verbally. FALL SCREENING: Has the patient had 2 falls in the last year or 1 fall with injury or currently using an Ambulatory Assistive Device (Walker, Cane, Wheelchair, Crutches, etc.)? No PATIENT GENDER DATA: Female. status: : No status: NO. PATIENT RELEVANT IMPLANT DATA REVIEWED: Yes PATIENT PRESENTS WITH AN IMPLANTABLE OR ATTACHED TIE TAMPER: No ALLERGIES: Reviewed and unchanged CONTRAST ALLERGY: NO. EXAM: MRI - CONTRAST TYPE: GROUP II PERIPHERAL IV DATA: Ambulatory: A peripheral IV was started in the Right upper extremity with a Angio cath: 22 gauge. RADIOLOGY DEPARTMENT: MR; Exam(s) Completed: Body: Female Pelvis SIGNATURE: RT Petra(Bharti) PATIENT NAME: Don Rodas DATE: February 08, 2024 TIME: 3:08 PM documented in this encounter [facility] 02-08-2024 Note HNO ID: [id number] Author: KIM BYRNES RT (R) Service: ? Author Type: Technologist Type: Progress Notes Filed: 02/08/2024 15:09 Note Text: Radiology Service Progress Note DATE OF SERVICE: February 08, 2024 TIME: 3:08 PM PATIENT IDENTITY VERIFICATION COMPLETED USING TWO (2) STANDARD IDENTIFIERS: Name and Date of confirmed by patient verbally. FALL SCREENING: Has the patient had 2 falls in the last year or 1 fall with injury or currently using an Ambulatory Assistive Device (Walker, Cane, Wheelchair, Crutches, etc.)? No PATIENT GENDER DATA: Female. status: : No status: NO. PATIENT RELEVANT IMPLANT DATA REVIEWED: Yes PATIENT PRESENTS WITH AN IMPLANTABLE OR ATTACHED TIE TAMPER: No ALLERGIES: Reviewed and unchanged CONTRAST ALLERGY: NO. EXAM: MRI - CONTRAST TYPE: GROUP II PERIPHERAL IV DATA: Ambulatory: A peripheral IV was started in the Right upper extremity with a Angio cath: 22 gauge. RADIOLOGY DEPARTMENT: MR; Exam(s) Completed: Body: Female Pelvis SIGNATURE: RT Petra(R) PATIENT NAME: Don Rodas DATE: February 08, 2024 TIME: 3:08 PM [facility] 02-08-2024 Telephone encounter Note Discussed with patient. Questions answered [facility] 02-08-2024 Miscellaneous Notes Discussed with patient. Questions answered She was notified via [employer] and also called in triage nurse gave her the message. documented in this encounter [facility] 02-08-2024 Telephone encounter Note She was notified via [employer] and also called in triage nurse gave her the message. [facility] 02-07-2024 Telephone encounter Note Patient notified of results and provider's instructions. Patient verbalizes understanding. Deena Mclaughlin RN [facility] 02-07-2024 Miscellaneous Notes Patient notified of results and provider's instructions. Patient verbalizes understanding. Deena Mclaughlin RN I sent this to the patient in a [employer] message. Let her know I spoke with Dr Solis.( I attempted to call her multiple times but she hung up on me multiple times and hung up when I told her it was me and was important.) Dr Solis recommended ordering labs. Can get the MRI but also recommended having her see a hand endband cutter specialist in ovarian nodules. Order placed. documented in this encounter [facility] 02-07-2024 Telephone encounter Note I sent this to the patient in a [employer] message. [facility] 02-07-2024 Telephone encounter Note Let her know I spoke with Dr Solis.( I attempted to call her multiple times but she hung up on me multiple times and hung up when I told her it was me and was important.) Dr Solis recommended ordering labs. Can get the MRI but also recommended having her see a hand endband cutter specialist in ovarian nodules. Order placed. [facility] 02-07-2024 Telephone encounter Note She should have Ca125, cea and Ca19-9 and referral to SEM MANAGER onc. I will send a message to the provider who ordered the ultrasound. She can also get the MRI done which I would recommend. [facility] 02-07-2024 Miscellaneous Notes She should have Ca125, cea and Ca19-9 and referral to SEM MANAGER onc. I will send a message to the provider who ordered the ultrasound. She can also get the MRI done which I would recommend. Patient met with Dr. Bhagat for VV to discuss. Lucia Ayala RN documented in this encounter [facility] 02-07-2024 Telephone encounter Note Patient met with Dr. Bhagat for VV to discuss. Lucia Ayala RN [facility] 02-07-2024 Telephone encounter Note Seeing in ov [facility] 02-07-2024 Miscellaneous Notes Seeing in ov documented in this encounter [facility] 02-07-2024 Note HNO ID: [id number] Author: ARIANA BHAGAT MD Service: ? Author Type: Physician Type: Progress Notes Filed: 02/07/2024 08:53 Note Text: Patient presents with: Recheck: Discuss us results. HPI:This visit is a virtual encounter. It required patient-provider interaction for the medical decision making as documented below. Patient has elected to have a visit through distance medicine I have communicated my name and active licensure. The patient's identity and physical location were verified at the time of this visit. Either the patient or their legal agency service representative has been informed of the risks and benefits of -- and alternatives to -- treatment through a remote evaluation and consents to proceed with the evaluation remotely. LMP was 12/24. Was normal. Had a work up for hematuria that included a ct urogram that showed a right adnexal cyst. Just had discomfort in left for just 24 hours. Sees hand endband cutter regularly. Has a hx of recurrent cyst. No vaginal bleeding. No gi or gu issues. No current abd pain. No current blood or urinary complaints. Getting another ua in the middle of the month. Still on zepbound. Feeling well. Did fair over the holiday. Previous ct urogram: Pelvis: No mass, ascites or fluid collection. 4.5 cm right adnexal cyst. US of pelvis: O-RADS 4 left adnexal lesion. Ultrasound O-RADS Follow-Up Recommendations: - Imaging: Female pelvic MRI without and with contrast is advised for further characterization. - Clinical: Advise Community Engagement Specialist-Oncologist follow-up, if not already performed. Cobol Engineer: RORY Transcribe Date/Time: Feb 06 2024 10:47A Dictated by : SURAJ HURD MD This examination was interpreted and the report reviewed and electronically signed by: SURAJ HURD MD on Feb 06 2024 10:53AM EST Results-Findings * * *Final Report* * * DATE OF EXAM: Feb 01 2024 9:49AM [facility] [id number] - US FEMALE PELVIS TRANSVAG / PROCEDURE REASON: Adnexal cyst * * * * Physician Interpretation * * * * EXAMINATION: TRANSVAGINAL AND LIMITED TRANSABDOMINAL FEMALE PELVIC ULTRASOUND CLINICAL HISTORY: Adnexal cyst; RLQ pain x2 months; LMP is reported as 01/30/2024 TECHNIQUE: Sonography of the pelvis was performed by transvaginal and transabdominal (limited) techniques. Images were obtained and stored in a permanent archive. MQ: [email or web address] COMPARISON: 01/17/2024 CT urogram, 09/09/2021 pelvic US RESULT: Uterus: -Size: 9 x 4.2 x 5.6 cm -Orientation: Anteverted -Endometrial echo complex: Evaluation of the endometrium was adequate. No endometrial abnormality. The endometrial echo complex measured 1 cm. -Cervix: Unremarkable. -Adenomyosis assessment: There are no sonographic findings of adenomyosis. -Fibroids: There are no fibroids. Right Ovary: 3.4 x 2.2 x 2.1 cm - Normal sonographic appearance with physiologic follicles. Doppler imaging showed normal arterial and venous flow throughout the ovary. Left Ovary: 2.3 x 2.3 x 2.4 cm - Lesion(s) present, as detailed below. Doppler imaging showed normal arterial and venous flow throughout the ovary. - US O-RADS Descriptor: Multilocular Cystic Lesion with a Solid Component - Dimensions: 5.1 x 2.6 x 4.8 cm. - Solid Component: Present - Color Score: Minimal vascular flow within solid component on color Doppler (color score = 2) - Other: Appears to arise exophytically from the left ovary - Ultrasound O-RADS Score: 4 (intermediate risk) - Ultrasound O-RADS Management: See impression Free Fluid: No abnormal free fluid is present. MEDICATIONS: Current Outpatient Medications Medication Sig doxycycline (VIBRA-TABS) 100 mg tablet Take 1 tablet by mouth two times a day for 5 days. mupirocin (BACTROBAN) 2 % ointment Apply to affected area three times a day for 5 days. predniSONE (DELTASONE) 10 mg tablet Take 4 tablets by mouth once daily for 5 days. albuterol HFA (PROVENTIL HFA, VENTOLIN HFA) 90 mcg/actuation inhaler Inhale 2 Puffs as instructed every 4 hours as needed for wheezing/shortness of breath. atorvastatin (LIPITOR) 20 mg tablet Take 1 tablet by mouth daily at bedtime. For cholesterol. tirzepatide, weight loss (ZEPBOUND) 7.5 mg/0.5 mL pen injector Inject 7.5 mg subcutaneously one time a week. nystatin (MYCOSTATIN) cream Apply 1 application to affected area two times a day. cyclobenzaprine (FLEXERIL) 10 mg tablet Take 1 tablet by mouth three times a day as needed for muscle spasm. fluticasone-vilanterol (BREO ELLIPTA) 200-25 mcg/dose inhaler Inhale 1 Inhalation as instructed once daily. Inhale one puff once daily. DO NOT CLICK OPEN UNTIL READY FOR DOSE EPINEPHrine (EPIPEN) 0.3 mg/0.3 mL auto-injector 0.3 ml subcutaneous as needed for severe allergic reaction/may substitute. albuterol (PROVENTIL) 2.5 mg /3 mL (0.083 %) nebulizer solution Use 3 mL via nebulizer every 6 hours as needed for wheezing/shortness of breath. Use over 5-15minutes. ergocalciferol 50,000 unit (more content not included)... [facility] 02-07-2024 History of Present illness Narrative Patient presents with: Recheck: Discuss us results. HPI:This visit is a virtual encounter. It required patient-provider interaction for the medical decision making as documented below. Patient has elected to have a visit through distance medicine I have communicated my name and active licensure. The patient's identity and physical location were verified at the time of this visit. Either the patient or their legal agency service representative has been informed of the risks and benefits of -- and alternatives to -- treatment through a remote evaluation and consents to proceed with the evaluation remotely. LMP was 01/28. Was normal. Had a work up for hematuria that included a ct urogram that showed a right adnexal cyst. Just had discomfort in left for just 24 hours. Sees hand endband cutter regularly. Has a hx of recurrent cyst. No vaginal bleeding. No gi or gu issues. No current abd pain. No current blood or urinary complaints. Getting another ua in the middle of the month. Still on zepbound. Feeling well. Did fair over the holiday. Previous ct urogram: Pelvis: No mass, ascites or fluid collection. 4.5 cm right adnexal cyst. US of pelvis: O-RADS 4 left adnexal lesion. Ultrasound O-RADS Follow-Up Recommendations: - Imaging: Female pelvic MRI without and with contrast is advised for further characterization. - Clinical: Advise Community Engagement Specialist-Oncologist follow-up, if not already performed. Cobol Engineer: RORY Transcribe Date/Time: Feb 06 2024 10:47A Dictated by : SURAJ HURD MD This examination was interpreted and the report reviewed and electronically signed by: SURAJ HURD MD on Feb 06 2024 10:53AM EST Results-Findings * * *Final Report* * * DATE OF EXAM: Feb 01 2024 9:49AM [id number] - US FEMALE PELVIS TRANSVAG / PROCEDURE REASON: Adnexal cyst * * * * Physician Interpretation * * * * EXAMINATION: TRANSVAGINAL AND LIMITED TRANSABDOMINAL FEMALE PELVIC ULTRASOUND CLINICAL HISTORY: Adnexal cyst; RLQ pain x2 months; LMP is reported as 01/30/2024 TECHNIQUE: Sonography of the pelvis was performed by transvaginal and transabdominal (limited) techniques. Images were obtained and stored in a permanent archive. MQ: [id number] COMPARISON: 01/17/2024 CT urogram, 09/09/2021 pelvic US RESULT: Uterus: -Size: 9 x 4.2 x 5.6 cm -Orientation: Anteverted -Endometrial echo complex: Evaluation of the endometrium was adequate. No endometrial abnormality. The endometrial echo complex measured 1 cm. -Cervix: Unremarkable. -Adenomyosis assessment: There are no sonographic findings of adenomyosis. -Fibroids: There are no fibroids. Right Ovary: 3.4 x 2.2 x 2.1 cm - Normal sonographic appearance with physiologic follicles. Doppler imaging showed normal arterial and venous flow throughout the ovary. Left Ovary: 2.3 x 2.3 x 2.4 cm - Lesion(s) present, as detailed below. Doppler imaging showed normal arterial and venous flow throughout the ovary. - US O-RADS Descriptor: Multilocular Cystic Lesion with a Solid Component - Dimensions: 5.1 x 2.6 x 4.8 cm. - Solid Component: Present - Color Score: Minimal vascular flow within solid component on color Doppler (color score = 2) - Other: Appears to arise exophytically from the left ovary - Ultrasound O-RADS Score: 4 (intermediate risk) - Ultrasound O-RADS Management: See impression Free Fluid: No abnormal free fluid is present. MEDICATIONS: Current Outpatient Medications Medication Sig doxycycline (VIBRA-TABS) 100 mg tablet Take 1 tablet by mouth two times a day for 5 days. mupirocin (BACTROBAN) 2 % ointment Apply to affected area three times a day for 5 days. predniSONE (DELTASONE) 10 mg tablet Take 4 tablets by mouth once daily for 5 days. albuterol HFA (PROVENTIL HFA, VENTOLIN HFA) 90 mcg/actuation inhaler Inhale 2 Puffs as instructed every 4 hours as needed for wheezing/shortness of breath. atorvastatin (LIPITOR) 20 mg tablet Take 1 tablet by mouth daily at bedtime. For cholesterol. tirzepatide, weight loss (ZEPBOUND) 7.5 mg/0.5 mL pen injector Inject 7.5 mg subcutaneously one time a week. nystatin (MYCOSTATIN) cream Apply 1 application to affected area two times a day. cyclobenzaprine (FLEXERIL) 10 mg tablet Take 1 tablet by mouth three times a day as needed for muscle spasm. fluticasone-vilanterol (BREO ELLIPTA) 200-25 mcg/dose inhaler Inhale 1 Inhalation as instructed once daily. Inhale one puff once daily. DO NOT CLICK OPEN UNTIL READY FOR DOSE EPINEPHrine (EPIPEN) 0.3 mg/0.3 mL auto-injector 0.3 ml subcutaneous as needed for severe allergic reaction/may substitute. albuterol (PROVENTIL) 2.5 mg /3 mL (0.083 %) nebulizer solution Use 3 mL via nebulizer every 6 hours as needed for wheezing/shortness of breath. Use over 5-15minutes. ergocalciferol 50,000 unit capsule (VITAMIN D2, DRISDOL) Take 1 capsule by mouth one time a week. clotrimazole-betamethasone (LOTRISONE) cream APPLY TO AFFECTED AREA TWICE A DAY multivitamin tablet Take 1 tablet by mouth once daily. ascorbic acid (RANDA-C ORAL) Take 2,000 mg by mouth once daily. Nebulizer 1 Each once daily. NEBULIZER FOR HOME USE. DX: asthma J 45.909 No current facility-administered medications for this visit. ALLERGIES: ALLERGIES Allergen Reactions Shellfish Derived Anaphylaxis Keflex [Cephalexin] Rash Latex Rash Prevnar 20 (Pf) [Pn* Other: See Comments Allergies. PAST MEDICAL HISTORY Diagnosis Date Allergy 09/11/2013 Asthma 09/27/2012 Excessive daytime sleepiness 08/16/2016 Fibrocystic breast disease in female 09/11/2013 Hyperlipidemia LDL goal <130 07/31/2014 Morbid obesity (HCC) Rosacea 09/27/2012 Vitamin D deficiency 08/04/2014 PAST SURGICAL HISTORY Procedure Laterality Date COLONOSCOPY SCREENING 11/28/2021 focal 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 EGD W/O BRSH SPEC VARICIES INJ 11/28/2021 Normal REMOVE TONSILS/ADENOIDS,12+ Y/O TONSILLECTOMY HX FAMILY HISTORY Problem Relation Age of Onset Asthma Mother Hyperlipidemia Mother Osteoporosis Mother Diabetes Father Psoriasis Father Arthritis Father Diabetes Maternal Grandmother Heart Maternal Grandmother tachycardia Hypertension Maternal Grandmother None Maternal Grandfather Asthma Paternal Grandmother Stroke Paternal Grandmother Colon Cancer Maternal Uncle Social History Tobacco Use Smoking status: Never Smokeless tobacco: Never Vaping Use Vaping status: Never Used Substance Use Topics Alcohol use: No Drug use: No Reviewed current medications, allergies, past medical history, surgical history, family history and social history today. REVIEW OF SYSTEMS All other reviewed and negative other than HPI. HEALTH MAINTENANCE: Reviewed health maintenance issues today and recommended the following in detail. There are no preventive care reminders to display for this patient. VITALS: Could not assess Last 4 Encounter Wt Readings: Date: Wt: 02/05/2024 107 kg (235 lb 14.3 oz) 01/19/2024 106.4 kg (234 lb 9.1 oz) 12/22/2023 105.2 kg (232 lb) 09/14/2023 102.5 kg (225 lb 15.5 oz) PHYSICAL EXAMINATION: Patient is alert and oriented during visit. Answers appropriately. Breathing comfortably.. chest rise normal. No audible wheeze. No pallor. ASSESSMENT/PLAN: 1. Other intra-abdominal and pelvic swelling, mass and lump - ICD9: 789.39, ICD10: R19.09 - has a hx of benign ovarian cysts. The right that was seen previously is now gone. Will order MRI since was recommended by radiology but will forward to her hand endband cutter to make them aware. She will be following up with them as well. Red flags for re-assessment reviewed with patient in detail. - MRI FEMALE PELVIS WO/W IVCON - IV CONTRAST (RADIOLOGY PROCEDURE) - NOT ON MAR - SURGICAL LUBRICANT JELLY TOPICAL Ariana Bhagat MD I spent 30 minutes in the visit, with more than 50% of the total [id number] time of the visit in counseling / coordination of care. documented in this encounter [facility] 02-05-2024 Note HNO ID: [id number] Author: REYNALDO ADAMES LPN Service: ? Author Type: LICENSED NURSE Type: Progress Notes Filed: 02/05/2024 15:13 Note Text: 2.5 solution aerosol treatment given per provider's orders. Prior to treatment O2 sat is 94. Treatment completed. O2 sat is 96%. Tolerated well. [facility] 02-05-2024 Note HNO ID: [id number] Author: LADARIUS FLORES APRN.PIPELINE INTEGRITY ENGINEER Service: ? Author Type: Nurse Practitioner Type: Progress Notes Filed: 02/05/2024 09:16 Note Text: Subjective HPI Nontoxic-appearing female presents urgent care accompanied by mother. Complaint cough headaches wheezing chest congestion. Duration of symptoms 4 days. Associated symptoms listed above. Mother sick previous similar signs and symptoms. OTC medications none. Has been using rescue inhaler more frequently. Increase nocturnal cough. Additionally has noticed a boil in her inner left thigh. This is painful. Denies OTC medications for this. Denies any fevers vomiting abdominal pain. No chest pain or hemoptysis. Denies chance . Is not breast-feeding. Past medical history prescription medications allergies reviewed. .Patient presents with: Chest Congestion: SOB, Wheeze, headache, cough, chest pressure x 4 days Derm Problem: Inner left thigh, boil in skin, painful PAST MEDICAL HISTORY Diagnosis Date Allergy 09/11/2013 Asthma 09/27/2012 Excessive daytime sleepiness 08/16/2016 Fibrocystic breast disease in female 09/11/2013 Hyperlipidemia LDL goal <130 07/31/2014 Morbid obesity (HCC) Rosacea 09/27/2012 Vitamin D deficiency 08/04/2014 PAST SURGICAL HISTORY Procedure Laterality Date COLONOSCOPY SCREENING 11/28/2021 focal 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 EGD W/O BRSH SPEC VARICIES INJ 11/28/2021 Normal REMOVE TONSILS/ADENOIDS,12+ Y/O TONSILLECTOMY HX ALLERGIES Shellfish Derived, Keflex [Cephalexin], Latex, and Prevnar 20 (Pf) [Pneumoc 20-Gunjan Conj-Dip Cr(Pf)] MEDICATIONS albuterol HFA (PROVENTIL HFA, VENTOLIN HFA) 90 mcg/actuation inhaler Inhale 2 Puffs as instructed every 4 hours as needed for wheezing/shortness of breath. atorvastatin (LIPITOR) 20 mg tablet Take 1 tablet by mouth daily at bedtime. For cholesterol. tirzepatide, weight loss (ZEPBOUND) 7.5 mg/0.5 mL pen injector Inject 7.5 mg subcutaneously one time a week. nystatin (MYCOSTATIN) cream Apply 1 application to affected area two times a day. cyclobenzaprine (FLEXERIL) 10 mg tablet Take 1 tablet by mouth three times a day as needed for muscle spasm. fluticasone-vilanterol (BREO ELLIPTA) 200-25 mcg/dose inhaler Inhale 1 Inhalation as instructed once daily. Inhale one puff once daily. DO NOT CLICK OPEN UNTIL READY FOR DOSE EPINEPHrine (EPIPEN) 0.3 mg/0.3 mL auto-injector 0.3 ml subcutaneous as needed for severe allergic reaction/may substitute. albuterol (PROVENTIL) 2.5 mg /3 mL (0.083 %) nebulizer solution Use 3 mL via nebulizer every 6 hours as needed for wheezing/shortness of breath. Use over 5-15minutes. ergocalciferol 50,000 unit capsule (VITAMIN D2, DRISDOL) Take 1 capsule by mouth one time a week. clotrimazole-betamethasone (LOTRISONE) cream APPLY TO AFFECTED AREA TWICE A DAY multivitamin tablet Take 1 tablet by mouth once daily. ascorbic acid (RANDA-C ORAL) Take 2,000 mg by mouth once daily. Nebulizer 1 Each once daily. NEBULIZER FOR HOME USE. DX: asthma J 45.909 FAMILY HISTORY Problem Relation Age of Onset Asthma Mother Hyperlipidemia Mother Osteoporosis Mother Diabetes Father Psoriasis Father Arthritis Father Diabetes Maternal Grandmother Heart Maternal Grandmother tachycardia Hypertension Maternal Grandmother None Maternal Grandfather Asthma Paternal Grandmother Stroke Paternal Grandmother Colon Cancer Maternal Uncle Social History Tobacco Use Smoking status: Never Smokeless tobacco: Never Vaping Use Vaping status: Never Used Substance Use Topics Alcohol use: No Drug use: No BP 91/66 Pulse 80 Temp 36.7 ?C (98 ?F) Resp 24 Wt 107 kg (235 lb 14.3 oz) LMP 02/05/2024 (Exact Date) SpO2 96% BMI 43.15 kg/m? Review of Systems Constitutional: Negative for chills, fever and malaise/fatigue. HENT: Positive for congestion, sinus pain and sore throat. Negative for ear discharge and ear pain. Eyes: Negative for blurred vision, pain, discharge and redness. Respiratory: Positive for cough, shortness of breath and wheezing. Negative for hemoptysis, sputum production and stridor. Cardiovascular: Negative for chest pain. Gastrointestinal: Negative for abdominal pain, diarrhea, nausea and vomiting. Musculoskeletal: Negative for myalgias. Skin: Negative for itching and rash. Neurological: Positive for headaches. Negative for dizziness. Objective Physical Exam Constitutional: General: She is not in acute distress. Appearance: She is not diaphoretic. HENT: Head: Normocephalic. Jaw: No trismus, tenderness, swelling or pain on movement. Nose: Congestion present. Mouth/Throat: Mouth: Mucous membranes are moist. Pharynx: Oropharynx is clear. Uvula midline. No pharyngeal swelling, oropharyngeal exudate, posterior oropharyngeal erythema or uvula swelling. Eyes: Conjunctiva/sclera: Conjunctivae normal. Pupils: Pupils are equal, round, and reactive to li (more content not included)... [facility] 02-05-2024 History of Present illness Narrative Subjective HPI Nontoxic-appearing female presents urgent care accompanied by mother. Complaint cough headaches wheezing chest congestion. Duration of symptoms 4 days. Associated symptoms listed above. Mother sick previous similar signs and symptoms. OTC medications none. Has been using rescue inhaler more frequently. Increase nocturnal cough. Additionally has noticed a boil in her inner left thigh. This is painful. Denies OTC medications for this. Denies any fevers vomiting abdominal pain. No chest pain or hemoptysis. Denies chance . Is not breast-feeding. Past medical history prescription medications allergies reviewed. .Patient presents with: Chest Congestion: SOB, Wheeze, headache, cough, chest pressure x 4 days Derm Problem: Inner left thigh, boil in skin, painful PAST MEDICAL HISTORY Diagnosis Date Allergy 09/11/2013 Asthma 09/27/2012 Excessive daytime sleepiness 08/16/2016 Fibrocystic breast disease in female 09/11/2013 Hyperlipidemia LDL goal <130 07/31/2014 Morbid obesity (HCC) Rosacea 09/27/2012 Vitamin D deficiency 08/04/2014 PAST SURGICAL HISTORY Procedure Laterality Date COLONOSCOPY SCREENING 11/28/2021 focal 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 EGD W/O BRSH SPEC VARICIES INJ 11/28/2021 Normal REMOVE TONSILS/ADENOIDS,12+ Y/O TONSILLECTOMY HX ALLERGIES Shellfish Derived, Keflex [Cephalexin], Latex, and Prevnar 20 (Pf) [Pneumoc 20-Gunjan Conj-Dip Cr(Pf)] MEDICATIONS albuterol HFA (PROVENTIL HFA, VENTOLIN HFA) 90 mcg/actuation inhaler Inhale 2 Puffs as instructed every 4 hours as needed for wheezing/shortness of breath. atorvastatin (LIPITOR) 20 mg tablet Take 1 tablet by mouth daily at bedtime. For cholesterol. tirzepatide, weight loss (ZEPBOUND) 7.5 mg/0.5 mL pen injector Inject 7.5 mg subcutaneously one time a week. nystatin (MYCOSTATIN) cream Apply 1 application to affected area two times a day. cyclobenzaprine (FLEXERIL) 10 mg tablet Take 1 tablet by mouth three times a day as needed for muscle spasm. fluticasone-vilanterol (BREO ELLIPTA) 200-25 mcg/dose inhaler Inhale 1 Inhalation as instructed once daily. Inhale one puff once daily. DO NOT CLICK OPEN UNTIL READY FOR DOSE EPINEPHrine (EPIPEN) 0.3 mg/0.3 mL auto-injector 0.3 ml subcutaneous as needed for severe allergic reaction/may substitute. albuterol (PROVENTIL) 2.5 mg /3 mL (0.083 %) nebulizer solution Use 3 mL via nebulizer every 6 hours as needed for wheezing/shortness of breath. Use over 5-15minutes. ergocalciferol 50,000 unit capsule (VITAMIN D2, DRISDOL) Take 1 capsule by mouth one time a week. clotrimazole-betamethasone (LOTRISONE) cream APPLY TO AFFECTED AREA TWICE A DAY multivitamin tablet Take 1 tablet by mouth once daily. ascorbic acid (RANDA-C ORAL) Take 2,000 mg by mouth once daily. Nebulizer 1 Each once daily. NEBULIZER FOR HOME USE. DX: asthma J 45.909 FAMILY HISTORY Problem Relation Age of Onset Asthma Mother Hyperlipidemia Mother Osteoporosis Mother Diabetes Father Psoriasis Father Arthritis Father Diabetes Maternal Grandmother Heart Maternal Grandmother tachycardia Hypertension Maternal Grandmother None Maternal Grandfather Asthma Paternal Grandmother Stroke Paternal Grandmother Colon Cancer Maternal Uncle Social History Tobacco Use Smoking status: Never Smokeless tobacco: Never Vaping Use Vaping status: Never Used Substance Use Topics Alcohol use: No Drug use: No BP 91/66 Pulse 80 Temp 36.7 C (98 F) Resp 24 Wt 107 kg (235 lb 14.3 oz) LMP 02/05/2024 (Exact Date) SpO2 96% BMI 43.15 kg/m Review of Systems Constitutional: Negative for chills, fever and malaise/fatigue. HENT: Positive for congestion, sinus pain and sore throat. Negative for ear discharge and ear pain. Eyes: Negative for blurred vision, pain, discharge and redness. Respiratory: Positive for cough, shortness of breath and wheezing. Negative for hemoptysis, sputum production and stridor. Cardiovascular: Negative for chest pain. Gastrointestinal: Negative for abdominal pain, diarrhea, nausea and vomiting. Musculoskeletal: Negative for myalgias. Skin: Negative for itching and rash. Neurological: Positive for headaches. Negative for dizziness. Objective Physical Exam Constitutional: General: She is not in acute distress. Appearance: She is not diaphoretic. HENT: Head: Normocephalic. Jaw: No trismus, tenderness, swelling or pain on movement. Nose: Congestion present. Mouth/Throat: Mouth: Mucous membranes are moist. Pharynx: Oropharynx is clear. Uvula midline. No pharyngeal swelling, oropharyngeal exudate, posterior oropharyngeal erythema or uvula swelling. Eyes: Conjunctiva/sclera: Conjunctivae normal. Pupils: Pupils are equal, round, and reactive to light. Cardiovascular: Rate and Rhythm: Normal rate and regular rhythm. Heart sounds: Normal heart sounds. Pulmonary: Effort: Pulmonary effort is normal. No tachypnea, accessory muscle usage or respiratory distress. Breath sounds: No stridor. Wheezing present. No rhonchi or rales. Abdominal: General: There is no distension. Palpations: Abdomen is soft. Tenderness: There is no abdominal tenderness. There is no guarding or rebound. Musculoskeletal: Cervical back: Normal range of motion and neck supple. No edema, erythema, rigidity or tenderness. No pain with movement. Normal range of motion. Lymphadenopathy: Cervical: No cervical adenopathy. Skin: General: Skin is warm and dry. Comments: 1 cm x 1 cm area of erythema induration noted. No adenopathy. No remote redness. Neurological: Mental Status: She is alert and oriented to person, place, and time. ASSESSMENT/PLAN: 1. Acute cough - ICD9: 786.2, ICD10: R05.1 (primary diagnosis) - XR CHEST 2V FRONTAL/LAT - IPRATROPIUM 0.5 MG-ALBUTEROL 3 MG (2.5 MG BASE)/3 ML NEBULIZATION SOLN Lungs clear to auscultation pulse ox 98% post administration of DuoNeb. 2. Mild intermittent asthma with acute exacerbation - ICD9: 493.92, ICD10: J45.21 3. Folliculitis - ICD9: 704.8, ICD10: L73.9 IMPRESSION: No acute radiographic abnormality. No acute findings noted on x-ray. Treat as asthma exacerbation and folliculitis. Placed on prednisone mupirocin and doxycycline. Patient was educated on supportive therapies. Patient will follow up with primary care provider as needed. Patient was instructed to immediately proceed to emergency room for any new, worsening, or symptoms lasting longer than anticipated. The patient's clinical presentation is otherwise unremarkable at this time. Based on exam and clinical finding, the patient is stable for discharge. Plan of care was discussed with patient. Patient verbalizes understanding and agrees to plan of care. This note was generated using [employer] software. It may contain errors in wording, punctuation, or spelling. Ladarius Flores APRN.MARIO documented in this encounter [facility] 02-05-2024 History of Present illness Narrative Radiology Service Progress Note PATIENT NAME: Don Rodas DATE OF SERVICE: February 05, 2024 TIME: 8:40 AM PATIENT IDENTITY VERIFICATION COMPLETED USING TWO (2) IDENTIFIERS: Name and Date of confirmed by patient verbally. FALL SCREENING: Has the patient had 2 falls in the last year or 1 fall with injury or currently using an Ambulatory Assistive Device (Walker, Cane, Wheelchair, Crutches, etc.)? No PATIENT GENDER DATA: Female. status: : No status: NO. PATIENT RELEVANT IMPLANT DATA REVIEWED: Not Applicable PATIENT PRESENTS WITH AN IMPLANTABLE OR ATTACHED TIE TAMPER: No RADIOLOGY DEPARTMENT: General X-ray: Exam(s) Completed: Chest X-Ray PERIPHERAL IV DATA: Not applicable SIGNED BY: RT Mildred(Bharti) February 05, 2024 8:40 AM documented in this encounter [facility] 02-05-2024 Note HNO ID: [id number] Author: PARISA FIGUEROA RT (R) Service: Radiology Author Type: Technologist Type: Progress Notes Filed: 02/05/2024 08:54 Note Text: Radiology Service Progress Note PATIENT NAME: Don Rodas DATE OF SERVICE: February 05, 2024 TIME: 8:40 AM PATIENT IDENTITY VERIFICATION COMPLETED USING TWO (2) IDENTIFIERS: Name and Date of confirmed by patient verbally. FALL SCREENING: Has the patient had 2 falls in the last year or 1 fall with injury or currently using an Ambulatory Assistive Device (Walker, Cane, Wheelchair, Crutches, etc.)? No PATIENT GENDER DATA: Female. status: : No status: NO. PATIENT RELEVANT IMPLANT DATA REVIEWED: Not Applicable PATIENT PRESENTS WITH AN IMPLANTABLE OR ATTACHED TIE TAMPER: No RADIOLOGY DEPARTMENT: General X-ray: Exam(s) Completed: Chest X-Ray PERIPHERAL IV DATA: Not applicable SIGNED BY: RT Mildred(R) February 05, 2024 8:40 AM [facility] 02-01-2024 History of Present illness Narrative Radiology Service Progress Note PATIENT NAME: Don Rodas DATE OF SERVICE: February 01, 2024 TIME: 1:16 PM PATIENT IDENTITY VERIFICATION COMPLETED USING TWO (2) IDENTIFIERS: Name and Date of confirmed by patient verbally. FALL SCREENING: Has the patient had 2 falls in the last year or 1 fall with injury or currently using an Ambulatory Assistive Device (Walker, Cane, Wheelchair, Crutches, etc.)? No PATIENT GENDER DATA: Female. status: : No status: NO. PATIENT RELEVANT IMPLANT DATA REVIEWED: Not Applicable PATIENT PRESENTS WITH AN IMPLANTABLE OR ATTACHED TIE TAMPER: No RADIOLOGY DEPARTMENT: Ultrasound PERIPHERAL IV DATA: Not applicable SIGNED BY: Carolee Nova RDMS Francis February 01, 2024 1:16 PM documented in this encounter [facility] 02-01-2024 Note HNO ID: [id number] Author: CAROLEE NOVA RDMS Service: ? Author Type: Adobe Block Maker Type: Progress Notes Filed: 02/01/2024 13:16 Note Text: Radiology Service Progress Note PATIENT NAME: Don Rodas DATE OF SERVICE: February 01, 2024 TIME: 1:16 PM PATIENT IDENTITY VERIFICATION COMPLETED USING TWO (2) IDENTIFIERS: Name and Date of confirmed by patient verbally. FALL SCREENING: Has the patient had 2 falls in the last year or 1 fall with injury or currently using an Ambulatory Assistive Device (Walker, Cane, Wheelchair, Crutches, etc.)? No PATIENT GENDER DATA: Female. status: : No status: NO. PATIENT RELEVANT IMPLANT DATA REVIEWED: Not Applicable PATIENT PRESENTS WITH AN IMPLANTABLE OR ATTACHED TIE TAMPER: No RADIOLOGY DEPARTMENT: Ultrasound PERIPHERAL IV DATA: Not applicable SIGNED BY: Carolee Nova RDMS Francis February 01, 2024 1:16 PM [facility] 01-19-2024 Note HNO ID: [id number] Author: ARIANA BHAGAT MD Service: ? Author Type: Physician Type: Progress Notes Filed: 01/19/2024 11:38 Note Text: Patient presents with: Follow Up HPI: Patient presents today for office visit for follow up. Sore throat and headache for 3 days. Has sore throat and right ear pain. Some congestion. No cough. No fever. No nausea or vomiting. Some loose stools. No shortness of breath. Still drinking well. MEDICATIONS: Current Outpatient Medications Medication Sig albuterol HFA (PROVENTIL HFA, VENTOLIN HFA) 90 mcg/actuation inhaler Inhale 2 Puffs as instructed every 4 hours as needed for wheezing/shortness of breath. atorvastatin (LIPITOR) 20 mg tablet Take 1 tablet by mouth daily at bedtime. For cholesterol. tirzepatide, weight loss (ZEPBOUND) 7.5 mg/0.5 mL pen injector Inject 7.5 mg subcutaneously one time a week. nystatin (MYCOSTATIN) cream Apply 1 application to affected area two times a day. benzonatate (TESSALON PERLES) 100 mg capsule Take 1 capsule by mouth three times a day as needed for cough. cyclobenzaprine (FLEXERIL) 10 mg tablet Take 1 tablet by mouth three times a day as needed for muscle spasm. fluticasone-vilanterol (BREO ELLIPTA) 200-25 mcg/dose inhaler Inhale 1 Inhalation as instructed once daily. Inhale one puff once daily. DO NOT CLICK OPEN UNTIL READY FOR DOSE EPINEPHrine (EPIPEN) 0.3 mg/0.3 mL auto-injector 0.3 ml subcutaneous as needed for severe allergic reaction/may substitute. albuterol (PROVENTIL) 2.5 mg /3 mL (0.083 %) nebulizer solution Use 3 mL via nebulizer every 6 hours as needed for wheezing/shortness of breath. Use over 5-15minutes. ergocalciferol 50,000 unit capsule (VITAMIN D2, DRISDOL) Take 1 capsule by mouth one time a week. clotrimazole-betamethasone (LOTRISONE) cream APPLY TO AFFECTED AREA TWICE A DAY multivitamin tablet Take 1 tablet by mouth once daily. ascorbic acid (RANDA-C ORAL) Take 2,000 mg by mouth once daily. Nebulizer 1 Each once daily. NEBULIZER FOR HOME USE. DX: asthma J 45.909 No current facility-administered medications for this visit. ALLERGIES: ALLERGIES Allergen Reactions Shellfish Derived Anaphylaxis Keflex [Cephalexin] Rash Latex Rash Prevnar 20 (Pf) [Pn* Other: See Comments Allergies. PAST MEDICAL HISTORY Diagnosis Date Allergy 09/11/2013 Asthma 09/27/2012 Excessive daytime sleepiness 08/16/2016 Fibrocystic breast disease in female 09/11/2013 Hyperlipidemia LDL goal <130 07/31/2014 Morbid obesity (HCC) Rosacea 09/27/2012 Vitamin D deficiency 08/04/2014 PAST SURGICAL HISTORY Procedure Laterality Date COLONOSCOPY SCREENING 11/28/2021 focal 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 EGD W/O BRSH SPEC VARICIES INJ 11/28/2021 Normal REMOVE TONSILS/ADENOIDS,12+ Y/O TONSILLECTOMY HX FAMILY HISTORY Problem Relation Age of Onset Asthma Mother Hyperlipidemia Mother Osteoporosis Mother Diabetes Father Psoriasis Father Arthritis Father Diabetes Maternal Grandmother Heart Maternal Grandmother tachycardia Hypertension Maternal Grandmother None Maternal Grandfather Asthma Paternal Grandmother Stroke Paternal Grandmother Colon Cancer Maternal Uncle Social History Tobacco Use Smoking status: Never Smokeless tobacco: Never Vaping Use Vaping status: Never Used Substance Use Topics Alcohol use: No Drug use: No Reviewed current medications, allergies, past medical history, surgical history, family history and social history today. REVIEW OF SYSTEMS Explained need for pelvic us Wants to hold on urology referral. Will double check urine for blood. No menses for over a week. All other reviewed and negative other than HPI. HEALTH MAINTENANCE: Reviewed health maintenance issues today and recommended the following in detail. There are no preventive care reminders to display for this patient. VITALS: BP 92/58 Pulse 69 Temp 36.9 ?C (98.4 ?F) (Tympanic) Wt 106.4 kg (234 lb 9.1 oz) LMP 04/14/2023 (Exact Date) SpO2 97% BMI 42.90 kg/m? Last 4 Encounter Wt Readings: Date: Wt: 01/19/2024 106.4 kg (234 lb 9.1 oz) 12/22/2023 105.2 kg (232 lb) 09/14/2023 102.5 kg (225 lb 15.5 oz) 07/28/2023 104.3 kg (230 lb) PHYSICAL EXAMINATION: General appearance: Well appearing, alert, in no acute distress, well-hydrated, well nourished. Skin: Skin color, texture, turgor normal, no suspicious rashes or lesions Head: Normocephalic, no masses, lesions, tenderness or abnormalities Eyes: Anicteric sclera. Pupils are equally round and reactive to light. Extraocular movements are intact. Ears: External ears normal, canals clear Nose/Sinuses: Nares normal, septum midline, mucosa normal, no drainage or sinus tenderness Oropharynx: Lips, mucosa, and tongue normal, teeth and gums normal, oropharynx normal Neck: Supple, no adenopath Lungs: Lungs clear to auscultation. No wheezing, rhonchi, rales Heart: RRR without murmur, ga (more content not included)... [facility] 01-19-2024 History of Present illness Narrative Patient presents with: Follow Up HPI: Patient presents today for office visit for follow up. Sore throat and headache for 3 days. Has sore throat and right ear pain. Some congestion. No cough. No fever. No nausea or vomiting. Some loose stools. No shortness of breath. Still drinking well. MEDICATIONS: Current Outpatient Medications Medication Sig albuterol HFA (PROVENTIL HFA, VENTOLIN HFA) 90 mcg/actuation inhaler Inhale 2 Puffs as instructed every 4 hours as needed for wheezing/shortness of breath. atorvastatin (LIPITOR) 20 mg tablet Take 1 tablet by mouth daily at bedtime. For cholesterol. tirzepatide, weight loss (ZEPBOUND) 7.5 mg/0.5 mL pen injector Inject 7.5 mg subcutaneously one time a week. nystatin (MYCOSTATIN) cream Apply 1 application to affected area two times a day. benzonatate (TESSALON PERLES) 100 mg capsule Take 1 capsule by mouth three times a day as needed for cough. cyclobenzaprine (FLEXERIL) 10 mg tablet Take 1 tablet by mouth three times a day as needed for muscle spasm. fluticasone-vilanterol (BREO ELLIPTA) 200-25 mcg/dose inhaler Inhale 1 Inhalation as instructed once daily. Inhale one puff once daily. DO NOT CLICK OPEN UNTIL READY FOR DOSE EPINEPHrine (EPIPEN) 0.3 mg/0.3 mL auto-injector 0.3 ml subcutaneous as needed for severe allergic reaction/may substitute. albuterol (PROVENTIL) 2.5 mg /3 mL (0.083 %) nebulizer solution Use 3 mL via nebulizer every 6 hours as needed for wheezing/shortness of breath. Use over 5-15minutes. ergocalciferol 50,000 unit capsule (VITAMIN D2, DRISDOL) Take 1 capsule by mouth one time a week. clotrimazole-betamethasone (LOTRISONE) cream APPLY TO AFFECTED AREA TWICE A DAY multivitamin tablet Take 1 tablet by mouth once daily. ascorbic acid (RANDA-C ORAL) Take 2,000 mg by mouth once daily. Nebulizer 1 Each once daily. NEBULIZER FOR HOME USE. DX: asthma J 45.112 No current facility-administered medications for this visit. ALLERGIES: ALLERGIES Allergen Reactions Shellfish Derived Anaphylaxis Keflex [Cephalexin] Rash Latex Rash Prevnar 20 (Pf) [Pn* Other: See Comments Allergies. PAST MEDICAL HISTORY Diagnosis Date Allergy 09/11/2013 Asthma 09/27/2012 Excessive daytime sleepiness 08/16/2016 Fibrocystic breast disease in female 09/11/2013 Hyperlipidemia LDL goal <130 07/31/2014 Morbid obesity (HCC) Rosacea 09/27/2012 Vitamin D deficiency 08/04/2014 PAST SURGICAL HISTORY Procedure Laterality Date COLONOSCOPY SCREENING 11/28/2021 focal 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 EGD W/O BRSH SPEC VARICIES INJ 11/28/2021 Normal REMOVE TONSILS/ADENOIDS,12+ Y/O TONSILLECTOMY HX FAMILY HISTORY Problem Relation Age of Onset Asthma Mother Hyperlipidemia Mother Osteoporosis Mother Diabetes Father Psoriasis Father Arthritis Father Diabetes Maternal Grandmother Heart Maternal Grandmother tachycardia Hypertension Maternal Grandmother None Maternal Grandfather Asthma Paternal Grandmother Stroke Paternal Grandmother Colon Cancer Maternal Uncle Social History Tobacco Use Smoking status: Never Smokeless tobacco: Never Vaping Use Vaping status: Never Used Substance Use Topics Alcohol use: No Drug use: No Reviewed current medications, allergies, past medical history, surgical history, family history and social history today. REVIEW OF SYSTEMS Explained need for pelvic us Wants to hold on urology referral. Will double check urine for blood. No menses for over a week. All other reviewed and negative other than HPI. HEALTH MAINTENANCE: Reviewed health maintenance issues today and recommended the following in detail. There are no preventive care reminders to display for this patient. VITALS: BP 92/58 Pulse 69 Temp 36.9 C (98.4 F) (Tympanic) Wt 106.4 kg (234 lb 9.1 oz) LMP 04/14/2023 (Exact Date) SpO2 97% BMI 42.90 kg/m Last 4 Encounter Wt Readings: Date: Wt: 01/19/2024 106.4 kg (234 lb 9.1 oz) 12/22/2023 105.2 kg (232 lb) 09/14/2023 102.5 kg (225 lb 15.5 oz) 07/28/2023 104.3 kg (230 lb) PHYSICAL EXAMINATION: General appearance: Well appearing, alert, in no acute distress, well-hydrated, well nourished. Skin: Skin color, texture, turgor normal, no suspicious rashes or lesions Head: Normocephalic, no masses, lesions, tenderness or abnormalities Eyes: Anicteric sclera. Pupils are equally round and reactive to light. Extraocular movements are intact. Ears: External ears normal, canals clear Nose/Sinuses: Nares normal, septum midline, mucosa normal, no drainage or sinus tenderness Oropharynx: Lips, mucosa, and tongue normal, teeth and gums normal, oropharynx normal Neck: Supple, no adenopath Lungs: Lungs clear to auscultation. No wheezing, rhonchi, rales Heart: RRR without murmur, gallop, or rubs. No ectopy Abdomen: Normal abdominal exam, Abdomen soft, non-tender. Bowel sounds normal. No masses, organomegaly ASSESSMENT/PLAN: 1. Pharyngitis, unspecified etiology - ICD9: 462, ICD10: J02.9 (primary diagnosis) - suspect is viral. Red flags for re-assessment reviewed with patient in detail. Call if symptoms worsen at all or if not better in one to two weeks - COVID & INFLUENZA A/B & RSV PCR, ROUTINE - STREP A MOLECULAR (POC) 2. URI, acute - ICD9: 465.9, ICD10: J06.9 - Discussed viral etiology and rationale for treatment. - Symptomatic treatment with prn analgesia - Supportive care with fluids and rest - COVID & INFLUENZA A/B & RSV PCR, ROUTINE - STREP A MOLECULAR (POC) 3. Microscopic hematuria - ICD9: 599.72, ICD10: R31.29 - URINALYSIS, WITH MICROSCOPIC 4. Adnexal cyst - ICD9: 625.8, ICD10: N94.9 - set up for adnexal cyst. Ariana Bhagat MD documented in this encounter [facility] 01-18-2024 Telephone encounter Note Called pt, notified of results. She hung up before I could get her transferred to [facility] to set up appts. Please call pt to schedule US and Urology appt. Aracelis Villanueva MA [facility] 01-18-2024 Miscellaneous Notes Called pt, notified of results. She hung up before I could get her transferred to [facility] to set up appts. Please call pt to schedule US and Urology appt. Aracelis Villanueva MA Ct did not show a stone etc. To account for blood in urine. Refer to urology. Shows a right cyst that is likely ovary. Those are often a normal finding. To be on safe side schedule a pelvic us. documented in this encounter [facility] 01-18-[address] did not show a stone etc. To account for blood in urine. Refer to urology. Shows a right cyst that is likely ovary. Those are often a normal finding. To be on safe side schedule a pelvic us. [facility] 01-17-2024 History of Present illness Narrative Radiology Service Progress Note DATE OF SERVICE: January 17, 2024 TIME: 9:36 AM PATIENT IDENTITY VERIFICATION COMPLETED USING TWO (2) STANDARD IDENTIFIERS: Name and Date of confirmed by patient verbally. FALL SCREENING: Has the patient had 2 falls in the last year or 1 fall with injury or currently using an Ambulatory Assistive Device (Walker, Cane, Wheelchair, Crutches, etc.)? No PATIENT GENDER DATA: Female. status: : No status: NO. PATIENT RELEVANT IMPLANT DATA REVIEWED: Not Applicable PATIENT PRESENTS WITH AN IMPLANTABLE OR ATTACHED TIE TAMPER: No ALLERGIES: Reviewed and unchanged CONTRAST ALLERGY: NO. EXAM: CT -CONTRAST INDUCED NEPHROPATHY RISK FACTORS: Not applicable CREATININE: Creatinine Date Value Ref Range Status 12/22/2023 0.72 0.58 - 0.96 mg/dL Final 07/21/2023 0.67 0.58 - 0.96 mg/dL Final 09/07/2022 0.63 0.58 - 0.96 mg/dL Final Estimated Glomerular Filtration Rate Date Value Ref Range Status 12/22/2023 113 >=60 mL/min/1.73m Final Comment: Estimated Glomerular Filtration Rate (eGFR) is calculated using the 2020 CKD-EPI creatinine equation. This equation utilizes serum creatinine, sex, and age as parameters. The creatinine assay has traceable calibration to isotope dilution-mass spectrometry. Refer to KDIGO guidelines for clinical interpretation. In patients with unstable renal function, e.g. those with acute kidney injury, the eGFR may not accurately reflect actual GFR. eGFR- Date Value Ref Range Status 08/25/2020 >60 Final P.O.C.T. RESULTS: POC done: Yes, See Lab Tab January 17, 2024 TREATMENT: N/A PERIPHERAL IV DATA: Ambulatory: A peripheral IV was started in the Left antecubital site with a Angio cath: 22 gauge. RADIOLOGY DEPARTMENT: CT; Exam(s) Completed: Urogram SIGNATURE: LISA Mckenzie PATIENT NAME: Don Rodas DATE: January 17, 2024 TIME: 9:36 AM documented in this encounter [facility] 01-17-2024 Note HNO ID: [id number] Author: SOPHIA DYE CT Service: Radiology Author Type: Brewery Pumper Type: Progress Notes Filed: 01/17/2024 09:37 Note Text: Radiology Service Progress Note DATE OF SERVICE: January 17, 2024 TIME: 9:36 AM PATIENT IDENTITY VERIFICATION COMPLETED USING TWO (2) STANDARD IDENTIFIERS: Name and Date of confirmed by patient verbally. FALL SCREENING: Has the patient had 2 falls in the last year or 1 fall with injury or currently using an Ambulatory Assistive Device (Walker, Cane, Wheelchair, Crutches, etc.)? No PATIENT GENDER DATA: Female. status: : No status: NO. PATIENT RELEVANT IMPLANT DATA REVIEWED: Not Applicable PATIENT PRESENTS WITH AN IMPLANTABLE OR ATTACHED TIE TAMPER: No ALLERGIES: Reviewed and unchanged CONTRAST ALLERGY: NO. EXAM: CT -CONTRAST INDUCED NEPHROPATHY RISK FACTORS: Not applicable CREATININE: Creatinine Date Value Ref Range Status 12/22/2023 0.72 0.58 - 0.96 mg/dL Final 07/21/2023 0.67 0.58 - 0.96 mg/dL Final 09/07/2022 0.63 0.58 - 0.96 mg/dL Final Estimated Glomerular Filtration Rate Date Value Ref Range Status 12/22/2023 113 >=60 mL/min/1.73m? Final Comment: Estimated Glomerular Filtration Rate (eGFR) is calculated using the 2020 CKD-EPI creatinine equation. This equation utilizes serum creatinine, sex, and age as parameters. The creatinine assay has traceable calibration to isotope dilution-mass spectrometry. Refer to KDIGO guidelines for clinical interpretation. In patients with unstable renal function, e.g. those with acute kidney injury, the eGFR may not accurately reflect actual GFR. eGFR- Date Value Ref Range Status 08/25/2020 >60 Final P.O.C.T. RESULTS: POC done: Yes, See Lab Tab January 17, 2024 TREATMENT: N/A PERIPHERAL IV DATA: Ambulatory: A peripheral IV was started in the Left antecubital site with a Angio cath: 22 gauge. RADIOLOGY DEPARTMENT: CT; Exam(s) Completed: Urogram SIGNATURE: LISA Mckenzie PATIENT NAME: Don Rodas DATE: January 17, 2024 TIME: 9:36 AM [facility] 12-31-2023 History of Present illness Narrative Radiology Service Progress Note PATIENT NAME: Don Rodas DATE OF SERVICE: December 31, 2023 TIME: 11:55 AM PATIENT IDENTITY VERIFICATION COMPLETED USING TWO (2) IDENTIFIERS: Name and Date of confirmed by patient verbally. FALL SCREENING: Has the patient had 2 falls in the last year or 1 fall with injury or currently using an Ambulatory Assistive Device (Walker, Cane, Wheelchair, Crutches, etc.)? No PATIENT GENDER DATA: Female. status: : No status: NO. PATIENT RELEVANT IMPLANT DATA REVIEWED: Not Applicable PATIENT PRESENTS WITH AN IMPLANTABLE OR ATTACHED TIE TAMPER: No RADIOLOGY DEPARTMENT: General X-ray: Exam(s) Completed: Spine X-Ray(s): Thoracic and Lumbar AP / LAT / L5-S1 PERIPHERAL IV DATA: Not applicable SIGNED BY: RT Ileana(Bharti) December 31, 2023 11:55 AM documented in this encounter [facility] 12-31-2023 Note HNO ID: [id number] Author: MARGE AYALA RT(Bharti) Service: ? Author Type: Technologist Type: Progress Notes Filed: 12/31/2023 11:55 Note Text: Radiology Service Progress Note PATIENT NAME: Don Rodas DATE OF SERVICE: December 31, 2023 TIME: 11:55 AM PATIENT IDENTITY VERIFICATION COMPLETED USING TWO (2) IDENTIFIERS: Name and Date of confirmed by patient verbally. FALL SCREENING: Has the patient had 2 falls in the last year or 1 fall with injury or currently using an Ambulatory Assistive Device (Walker, Cane, Wheelchair, Crutches, etc.)? No PATIENT GENDER DATA: Female. status: : No status: NO. PATIENT RELEVANT IMPLANT DATA REVIEWED: Not Applicable PATIENT PRESENTS WITH AN IMPLANTABLE OR ATTACHED TIE TAMPER: No RADIOLOGY DEPARTMENT: General X-ray: Exam(s) Completed: Spine X-Ray(s): Thoracic and Lumbar AP / LAT / L5-S1 PERIPHERAL IV DATA: Not applicable SIGNED BY: RT Ileana(Bharti) December 31, 2023 11:55 AM [facility] 12-31-2023 History of Present illness Narrative Radiology Service Progress Note PATIENT NAME: Don Rodas DATE OF SERVICE: December 31, 2023 TIME: 11:36 AM PATIENT IDENTITY VERIFICATION COMPLETED USING TWO (2) IDENTIFIERS: Name and Date of confirmed by patient verbally. FALL SCREENING: Has the patient had 2 falls in the last year or 1 fall with injury or currently using an Ambulatory Assistive Device (Walker, Cane, Wheelchair, Crutches, etc.)? No PATIENT GENDER DATA: Female. status: : No status: NO. PATIENT RELEVANT IMPLANT DATA REVIEWED: Not Applicable PATIENT PRESENTS WITH AN IMPLANTABLE OR ATTACHED TIE TAMPER: No RADIOLOGY DEPARTMENT: Ultrasound PERIPHERAL IV DATA: Not applicable SIGNED BY: Carolee Nova RDMS RVFrancis December 31, 2023 11:36 AM documented in this encounter [facility] 12-31-2023 Note HNO ID: [id number] Author: CAROLEE NOVA RDMS Service: ? Author Type: Adobe Block Maker Type: Progress Notes Filed: 12/31/2023 11:36 Note Text: Radiology Service Progress Note PATIENT NAME: Don Rodas DATE OF SERVICE: December 31, 2023 TIME: 11:36 AM PATIENT IDENTITY VERIFICATION COMPLETED USING TWO (2) IDENTIFIERS: Name and Date of confirmed by patient verbally. FALL SCREENING: Has the patient had 2 falls in the last year or 1 fall with injury or currently using an Ambulatory Assistive Device (Walker, Cane, Wheelchair, Crutches, etc.)? No PATIENT GENDER DATA: Female. status: : No status: NO. PATIENT RELEVANT IMPLANT DATA REVIEWED: Not Applicable PATIENT PRESENTS WITH AN IMPLANTABLE OR ATTACHED TIE TAMPER: No RADIOLOGY DEPARTMENT: Ultrasound PERIPHERAL IV DATA: Not applicable SIGNED BY: Carolee Nova RDMS RVFrancis December 31, 2023 11:36 AM [facility] 12-28-2023 Instructions Misty Willams APRN.MARIO - 12/28/2023 2:07 PM EST Get the back xrays. Start the prednisone taper. Get the ultrasound and CT urogram, as scheduled. Let us know if no better/worsening. documented in this encounter [facility] 12-28-2023 Note HNO ID: [id number] Author: MISTY WILLAMS APRN.MARIO Service: ? Author Type: Nurse Practitioner Type: Progress Notes Filed: 12/28/2023 17:43 Note Text: This is a 33 year old female who presents today with: Patient presents with: Recheck: 1 week follow up HISTORY OF PRESENT ILLNESS: Don Rodas is a 33 year old female. Patient presents with: Recheck: 1 week follow up Pt presents today for follow-up. She was in to see Dr. Bhagat last week with some stomach/flank pain. She has a RUQ ultrasound ordered/scheduled. Her urine showed some microscopic blood and calcium oxalate crystals. She does have a CT urogram ordered and scheduled to rule out kidney stones. She reports there has been no change in the discomfort. She is just noticing some numbness in the right thigh area and down the leg. Does get some lower back pain. Urinating and moving bowels okay. No loss of control. No saddle anesthesia. Gets some nausea with the zepbound. No vomiting. PAST MEDICAL HISTORY: PAST MEDICAL HISTORY Diagnosis Date Allergy 09/11/2013 Asthma 09/27/2012 Excessive daytime sleepiness 08/16/2016 Fibrocystic breast disease in female 09/11/2013 Hyperlipidemia LDL goal <130 07/31/2014 Morbid obesity (HCC) Rosacea 09/27/2012 Vitamin D deficiency 08/04/2014 PAST SURGICAL HISTORY Procedure Laterality Date COLONOSCOPY SCREENING 11/28/2021 focal 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 EGD W/O BRSH SPEC VARICIES INJ 11/28/2021 Normal REMOVE TONSILS/ADENOIDS,12+ Y/O TONSILLECTOMY HX ALLERGIES Shellfish Derived, Keflex [Cephalexin], Latex, and Prevnar 20 (Pf) [Pneumoc 20-Gunjan Conj-Dip Cr(Pf)] MEDICATIONS Current Outpatient Medications Medication Sig albuterol HFA (PROVENTIL HFA, VENTOLIN HFA) 90 mcg/actuation inhaler Inhale 2 Puffs as instructed every 4 hours as needed for wheezing/shortness of breath. atorvastatin (LIPITOR) 20 mg tablet Take 1 tablet by mouth daily at bedtime. For cholesterol. tirzepatide, weight loss (ZEPBOUND) 7.5 mg/0.5 mL pen injector Inject 7.5 mg subcutaneously one time a week. nystatin (MYCOSTATIN) cream Apply 1 application to affected area two times a day. benzonatate (TESSALON PERLES) 100 mg capsule Take 1 capsule by mouth three times a day as needed for cough. cyclobenzaprine (FLEXERIL) 10 mg tablet Take 1 tablet by mouth three times a day as needed for muscle spasm. fluticasone-vilanterol (BREO ELLIPTA) 200-25 mcg/dose inhaler Inhale 1 Inhalation as instructed once daily. Inhale one puff once daily. DO NOT CLICK OPEN UNTIL READY FOR DOSE EPINEPHrine (EPIPEN) 0.3 mg/0.3 mL auto-injector 0.3 ml subcutaneous as needed for severe allergic reaction/may substitute. albuterol (PROVENTIL) 2.5 mg /3 mL (0.083 %) nebulizer solution Use 3 mL via nebulizer every 6 hours as needed for wheezing/shortness of breath. Use over 5-15minutes. ergocalciferol 50,000 unit capsule (VITAMIN D2, DRISDOL) Take 1 capsule by mouth one time a week. clotrimazole-betamethasone (LOTRISONE) cream APPLY TO AFFECTED AREA TWICE A DAY multivitamin tablet Take 1 tablet by mouth once daily. ascorbic acid (RANDA-C ORAL) Take 2,000 mg by mouth once daily. Nebulizer 1 Each once daily. NEBULIZER FOR HOME USE. DX: asthma J 45.909 No current facility-administered medications for this visit. FAMILY HISTORY Problem Relation Age of Onset Asthma Mother Hyperlipidemia Mother Osteoporosis Mother Diabetes Father Psoriasis Father Arthritis Father Diabetes Maternal Grandmother Heart Maternal Grandmother tachycardia Hypertension Maternal Grandmother None Maternal Grandfather Asthma Paternal Grandmother Stroke Paternal Grandmother Colon Cancer Maternal Uncle Social History Tobacco Use Smoking status: Never Smokeless tobacco: Never Vaping Use Vaping status: Never Used Substance Use Topics Alcohol use: No Drug use: No EXAM: BP 98/70 Pulse 75 Resp 16 LMP 04/14/2023 (Exact Date) SpO2 97% PHYSICAL EXAM: General Appearance: Well appearing, alert, in no acute distress, well-hydrated, well nourished.. Skin: Skin color, texture, turgor normal, no suspicious rashes or lesions. Head: Normocephalic, Extraocular movements are intact. . Back: mild pain to the upper lumbar spine. good flexion and extension, good range of motion, no muscle tenderness, reflexes are 2+ and symmetric, motor and sensory appear to be normal, negative SLR test, no evidence of scoliosis Lungs: Lungs clear to auscultation. No wheezing, rhonchi, rales.. Heart: RRR without murmur, gallop, or rubs. No ectopy. Abdomen: Normal abdominal exam, Abdomen soft, non-tender. Bowel sounds normal. No masses, organomegaly. Extremities: No deformities, edema, skin discoloration, clubbing or cyanosis. Good capillary refill. . Neurologic: Gait normal. ASSESSMENT/PLAN: 1. Right-sided low back pain with right-sided sciatica, unspecified chronicity - ICD9: 724.3, ICD10: M54.41 (primary d (more content not included)... [facility] 12-28-2023 History of Present illness Narrative This is a 33 year old female who presents today with: Patient presents with: Recheck: 1 week follow up HISTORY OF PRESENT ILLNESS: Don Rodas is a 33 year old female. Patient presents with: Recheck: 1 week follow up Pt presents today for follow-up. She was in to see Dr. Bhagat last week with some stomach/flank pain. She has a RUQ ultrasound ordered/scheduled. Her urine showed some microscopic blood and calcium oxalate crystals. She does have a CT urogram ordered and scheduled to rule out kidney stones. She reports there has been no change in the discomfort. She is just noticing some numbness in the right thigh area and down the leg. Does get some lower back pain. Urinating and moving bowels okay. No loss of control. No saddle anesthesia. Gets some nausea with the zepbound. No vomiting. PAST MEDICAL HISTORY: PAST MEDICAL HISTORY Diagnosis Date Allergy 09/11/2013 Asthma 09/27/2012 Excessive daytime sleepiness 08/16/2016 Fibrocystic breast disease in female 09/11/2013 Hyperlipidemia LDL goal <130 07/31/2014 Morbid obesity (HCC) Rosacea 09/27/2012 Vitamin D deficiency 08/04/2014 PAST SURGICAL HISTORY Procedure Laterality Date COLONOSCOPY SCREENING 11/28/2021 focal 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 EGD W/O BRSH SPEC VARICIES INJ 11/28/2021 Normal REMOVE TONSILS/ADENOIDS,12+ Y/O TONSILLECTOMY HX ALLERGIES Shellfish Derived, Keflex [Cephalexin], Latex, and Prevnar 20 (Pf) [Pneumoc 20-Gunjan Conj-Dip Cr(Pf)] MEDICATIONS Current Outpatient Medications Medication Sig albuterol HFA (PROVENTIL HFA, VENTOLIN HFA) 90 mcg/actuation inhaler Inhale 2 Puffs as instructed every 4 hours as needed for wheezing/shortness of breath. atorvastatin (LIPITOR) 20 mg tablet Take 1 tablet by mouth daily at bedtime. For cholesterol. tirzepatide, weight loss (ZEPBOUND) 7.5 mg/0.5 mL pen injector Inject 7.5 mg subcutaneously one time a week. nystatin (MYCOSTATIN) cream Apply 1 application to affected area two times a day. benzonatate (TESSALON PERLES) 100 mg capsule Take 1 capsule by mouth three times a day as needed for cough. cyclobenzaprine (FLEXERIL) 10 mg tablet Take 1 tablet by mouth three times a day as needed for muscle spasm. fluticasone-vilanterol (BREO ELLIPTA) 200-25 mcg/dose inhaler Inhale 1 Inhalation as instructed once daily. Inhale one puff once daily. DO NOT CLICK OPEN UNTIL READY FOR DOSE EPINEPHrine (EPIPEN) 0.3 mg/0.3 mL auto-injector 0.3 ml subcutaneous as needed for severe allergic reaction/may substitute. albuterol (PROVENTIL) 2.5 mg /3 mL (0.083 %) nebulizer solution Use 3 mL via nebulizer every 6 hours as needed for wheezing/shortness of breath. Use over 5-15minutes. ergocalciferol 50,000 unit capsule (VITAMIN D2, DRISDOL) Take 1 capsule by mouth one time a week. clotrimazole-betamethasone (LOTRISONE) cream APPLY TO AFFECTED AREA TWICE A DAY multivitamin tablet Take 1 tablet by mouth once daily. ascorbic acid (RANDA-C ORAL) Take 2,000 mg by mouth once daily. Nebulizer 1 Each once daily. NEBULIZER FOR HOME USE. DX: asthma J 45.909 No current facility-administered medications for this visit. FAMILY HISTORY Problem Relation Age of Onset Asthma Mother Hyperlipidemia Mother Osteoporosis Mother Diabetes Father Psoriasis Father Arthritis Father Diabetes Maternal Grandmother Heart Maternal Grandmother tachycardia Hypertension Maternal Grandmother None Maternal Grandfather Asthma Paternal Grandmother Stroke Paternal Grandmother Colon Cancer Maternal Uncle Social History Tobacco Use Smoking status: Never Smokeless tobacco: Never Vaping Use Vaping status: Never Used Substance Use Topics Alcohol use: No Drug use: No EXAM: BP 98/70 Pulse 75 Resp 16 LMP 04/14/2023 (Exact Date) SpO2 97% PHYSICAL EXAM: General Appearance: Well appearing, alert, in no acute distress, well-hydrated, well nourished.. Skin: Skin color, texture, turgor normal, no suspicious rashes or lesions. Head: Normocephalic, Extraocular movements are intact. . Back: mild pain to the upper lumbar spine. good flexion and extension, good range of motion, no muscle tenderness, reflexes are 2+ and symmetric, motor and sensory appear to be normal, negative SLR test, no evidence of scoliosis Lungs: Lungs clear to auscultation. No wheezing, rhonchi, rales.. Heart: RRR without murmur, gallop, or rubs. No ectopy. Abdomen: Normal abdominal exam, Abdomen soft, non-tender. Bowel sounds normal. No masses, organomegaly. Extremities: No deformities, edema, skin discoloration, clubbing or cyanosis. Good capillary refill. . Neurologic: Gait normal. ASSESSMENT/PLAN: 1. Right-sided low back pain with right-sided sciatica, unspecified chronicity - ICD9: 724.3, ICD10: M54.41 (primary diagnosis) Sciatica - Prednisone taper. Gentle stretching. Notify provider if no improvement/worsening. - Xrays- see orders - XR LUMBAR GENERAL 3V AP/LAT/L5-S1 - PREDNISONE 10 MG TABLET 2. Flank pain - ICD9: 789.09, ICD10: R10.9 Get the ultrasound and the CT urogram as scheduled. - XR THORACIC GENERAL 3V AP/LAT/SWIMMERS - XR LUMBAR GENERAL 3V AP/LAT/L5-S1 - PREDNISONE 10 MG TABLET Discussed treatment plan and patient voices understanding. Patient's questions answered appropriately. Medications and potential side effects were discussed and patient voices understanding. Return to the office as scheduled or as needed for worsening/no improvement. Misty Willams APRN.PIPELINE INTEGRITY ENGINEER documented in this encounter [facility] 12-25-2023 Telephone encounter Note Can we please contact pt and help her setup CT Urogram as ordered by Provider. Chetna Arreaga MA [facility] 12-25-2023 Miscellaneous Notes Can we please contact pt and help her setup CT Urogram as ordered by Provider. Chetna Arreaga MA Pt notified with information listed below but keep getting cut off when I ask if she would like to be transferred to care team coordinator scheduler to test schedule. Wait for pt to call back. Edyta Covarrubias LPN No. Would not worry about the eos. That is usually just mild allergies. I would continue the zepbound. Ct urogram ordered Patient notified of results and provider's instructions. Patient verbalizes understanding. Patient will think about going to hematology. Patient asking if she should be concerned that Abs Eosin is elevated. Patient asking if she can continue to take Zepbound? Patient agreeable to CT urogram. Patient denies being anywhere near her time of month. Patient states that she continues with back pain. Deena Mclaughlin RN Attempted to call x 2 patient picks up and then phone hangs up. Will need to call again later. Cholesterol is mildly up. Watch cholesterol in the diet. Her platelets are up still up. Had seen Dr Lopez in the past for the same. Has been there for at least 10 years. Can consider going back to hematology at some point. Interested in doing so now or want to follow? Her urine shows no infection. Has trace of blood. Is she anywhere near her time of month. If not and still with back pain, can consider a ct urogram to look for kidney stones. documented in this encounter [facility] 12-24-2023 Telephone encounter Note Pt notified with information listed below but keep getting cut off when I ask if she would like to be transferred to care team coordinator scheduler to test schedule. Wait for pt to call back. Edyta Covarrubias LPN [facility] 12-24-2023 Telephone encounter Note No. Would not worry about the eos. That is usually just mild allergies. I would continue the zepbound. Ct urogram ordered [facility] 12-24-2023 Telephone encounter Note Patient notified of results and provider's instructions. Patient verbalizes understanding. Patient will think about going to hematology. Patient asking if she should be concerned that Abs Eosin is elevated. Patient asking if she can continue to take Zepbound? Patient agreeable to CT urogram. Patient denies being anywhere near her time of month. Patient states that she continues with back pain. Deena Mclaughlin RN [facility] 12-24-2023 Telephone encounter Note Attempted to call x 2 patient picks up and then phone hangs up. Will need to call again later. [facility] 12-24-2023 Telephone encounter Note See te [facility] 12-24-2023 Miscellaneous Notes See te documented in this encounter [facility] 12-24-2023 Telephone encounter Note Cholesterol is mildly up. Watch cholesterol in the diet. Her platelets are up still up. Had seen Dr Lopez in the past for the same. Has been there for at least 10 years. Can consider going back to hematology at some point. Interested in doing so now or want to follow? Her urine shows no infection. Has trace of blood. Is she anywhere near her time of month. If not and still with back pain, can consider a ct urogram to look for kidney stones. [facility] 12-22-2023 Note HNO ID: [id number] Author: ARIANA BHAGAT MD Service: ? Author Type: Physician Type: Progress Notes Filed: 12/22/2023 08:24 Note Text: Patient presents with: Follow Up HPI: Patient presents today for office visit for routine 3 month exam. Patient reports when she increased the dosage of Zepbound to 7.5 mg she has been experiencing right sided flank pain. Happens rarely. Comes and goes. Happens daily. Worse with eating. Some nausea which is normal with that med. No vomiting or diarrhea. She feels it is helping with her weight. No fever or chills. No urinary issues. Pain lasts for a few hours. Her next dose is due Sunday. No urinary symptoms. Mild heartburn. Occurs with spicy foods. Breathing is good. Still taking lipitor and vit d MEDICATIONS: Current Outpatient Medications Medication Sig albuterol HFA (PROVENTIL HFA, VENTOLIN HFA) 90 mcg/actuation inhaler Inhale 2 Puffs as instructed every 4 hours as needed for wheezing/shortness of breath. nystatin (MYCOSTATIN) cream Apply 1 application to affected area two times a day. fluticasone-vilanterol (BREO ELLIPTA) 200-25 mcg/dose inhaler Inhale 1 Inhalation as instructed once daily. Inhale one puff once daily. DO NOT CLICK OPEN UNTIL READY FOR DOSE EPINEPHrine (EPIPEN) 0.3 mg/0.3 mL auto-injector 0.3 ml subcutaneous as needed for severe allergic reaction/may substitute. albuterol (PROVENTIL) 2.5 mg /3 mL (0.083 %) nebulizer solution Use 3 mL via nebulizer every 6 hours as needed for wheezing/shortness of breath. Use over 5-15minutes. ergocalciferol 50,000 unit capsule (VITAMIN D2, DRISDOL) Take 1 capsule by mouth one time a week. clotrimazole-betamethasone (LOTRISONE) cream APPLY TO AFFECTED AREA TWICE A DAY multivitamin tablet Take 1 tablet by mouth once daily. ascorbic acid (RANDA-C ORAL) Take 2,000 mg by mouth once daily. tirzepatide, weight loss (ZEPBOUND) 7.5 mg/0.5 mL pen injector Inject 7.5 mg subcutaneously one time a week. benzonatate (TESSALON PERLES) 100 mg capsule Take 1 capsule by mouth three times a day as needed for cough. cyclobenzaprine (FLEXERIL) 10 mg tablet Take 1 tablet by mouth three times a day as needed for muscle spasm. atorvastatin (LIPITOR) 20 mg tablet Take 1 tablet by mouth daily at bedtime. For cholesterol. Nebulizer 1 Each once daily. NEBULIZER FOR HOME USE. DX: asthma J 45.310 No current facility-administered medications for this visit. ALLERGIES: ALLERGIES Allergen Reactions Shellfish Derived Anaphylaxis Keflex [Cephalexin] Rash Latex Rash Prevnar 20 (Pf) [Pn* Other: See Comments Allergies. PAST MEDICAL HISTORY Diagnosis Date Allergy 09/11/2013 Asthma 09/27/2012 Excessive daytime sleepiness 08/16/2016 Fibrocystic breast disease in female 09/11/2013 Hyperlipidemia LDL goal <130 07/31/2014 Morbid obesity (HCC) Rosacea 09/27/2012 Vitamin D deficiency 08/04/2014 PAST SURGICAL HISTORY Procedure Laterality Date COLONOSCOPY SCREENING 11/28/2021 focal 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 EGD W/O BRSH SPEC VARICIES INJ 11/28/2021 Normal REMOVE TONSILS/ADENOIDS,12+ Y/O TONSILLECTOMY HX FAMILY HISTORY Problem Relation Age of Onset Asthma Mother Hyperlipidemia Mother Osteoporosis Mother Diabetes Father Psoriasis Father Arthritis Father Diabetes Maternal Grandmother Heart Maternal Grandmother tachycardia Hypertension Maternal Grandmother None Maternal Grandfather Asthma Paternal Grandmother Stroke Paternal Grandmother Colon Cancer Maternal Uncle Social History Tobacco Use Smoking status: Never Smokeless tobacco: Never Vaping Use Vaping status: Never Used Substance Use Topics Alcohol use: No Drug use: No Reviewed current medications, allergies, past medical history, surgical history, family history and social history today. REVIEW OF SYSTEMS All other reviewed and negative other than HPI. HEALTH MAINTENANCE: Reviewed health maintenance issues today and recommended the following in detail. Depression Screening Never done VITALS: BP 116/62 Pulse 84 Resp 18 Wt 105.2 kg (232 lb) LMP 04/14/2023 (Exact Date) SpO2 93% BMI 42.43 kg/m? Last 4 Encounter Wt Readings: Date: Wt: 12/22/2023 105.2 kg (232 lb) 09/14/2023 102.5 kg (225 lb 15.5 oz) 07/28/2023 104.3 kg (230 lb) 07/20/2023 106.3 kg (234 lb 6.4 oz) PHYSICAL EXAMINATION: General appearance: Well appearing, alert, in no acute distress, well-hydrated, well nourished. Skin: Skin color, texture, turgor normal, no suspicious rashes or lesions Head: Normocephalic, no masses, lesions, tenderness or abnormalities Back: no cva tenderness. Mild muscular tenderness on right lower back. Lungs: Lungs clear to auscultation. No wheezing, rhonchi, rales Heart: RRR without murmur, gallop, or rubs. No ectopy Abdomen: Normal bowel sounds. Mild ruq tenderness. No rebound or guarding. Neg schofield's Extremities: No deformities, edema, skin discolora (more content not included)... [facility] 12-22-2023 History of Present illness Narrative Patient presents with: Follow Up HPI: Patient presents today for office visit for routine 3 month exam. Patient reports when she increased the dosage of Zepbound to 7.5 mg she has been experiencing right sided flank pain. Happens rarely. Comes and goes. Happens daily. Worse with eating. Some nausea which is normal with that med. No vomiting or diarrhea. She feels it is helping with her weight. No fever or chills. No urinary issues. Pain lasts for a few hours. Her next dose is due Sunday. No urinary symptoms. Mild heartburn. Occurs with spicy foods. Breathing is good. Still taking lipitor and vit d MEDICATIONS: Current Outpatient Medications Medication Sig albuterol HFA (PROVENTIL HFA, VENTOLIN HFA) 90 mcg/actuation inhaler Inhale 2 Puffs as instructed every 4 hours as needed for wheezing/shortness of breath. nystatin (MYCOSTATIN) cream Apply 1 application to affected area two times a day. fluticasone-vilanterol (BREO ELLIPTA) 200-25 mcg/dose inhaler Inhale 1 Inhalation as instructed once daily. Inhale one puff once daily. DO NOT CLICK OPEN UNTIL READY FOR DOSE EPINEPHrine (EPIPEN) 0.3 mg/0.3 mL auto-injector 0.3 ml subcutaneous as needed for severe allergic reaction/may substitute. albuterol (PROVENTIL) 2.5 mg /3 mL (0.083 %) nebulizer solution Use 3 mL via nebulizer every 6 hours as needed for wheezing/shortness of breath. Use over 5-15minutes. ergocalciferol 50,000 unit capsule (VITAMIN D2, DRISDOL) Take 1 capsule by mouth one time a week. clotrimazole-betamethasone (LOTRISONE) cream APPLY TO AFFECTED AREA TWICE A DAY multivitamin tablet Take 1 tablet by mouth once daily. ascorbic acid (RANDA-C ORAL) Take 2,000 mg by mouth once daily. tirzepatide, weight loss (ZEPBOUND) 7.5 mg/0.5 mL pen injector Inject 7.5 mg subcutaneously one time a week. benzonatate (TESSALON PERLES) 100 mg capsule Take 1 capsule by mouth three times a day as needed for cough. cyclobenzaprine (FLEXERIL) 10 mg tablet Take 1 tablet by mouth three times a day as needed for muscle spasm. atorvastatin (LIPITOR) 20 mg tablet Take 1 tablet by mouth daily at bedtime. For cholesterol. Nebulizer 1 Each once daily. NEBULIZER FOR HOME USE. DX: asthma J 45.909 No current facility-administered medications for this visit. ALLERGIES: ALLERGIES Allergen Reactions Shellfish Derived Anaphylaxis Keflex [Cephalexin] Rash Latex Rash Prevnar 20 (Pf) [Pn* Other: See Comments Allergies. PAST MEDICAL HISTORY Diagnosis Date Allergy 09/11/2013 Asthma 09/27/2012 Excessive daytime sleepiness 08/16/2016 Fibrocystic breast disease in female 09/11/2013 Hyperlipidemia LDL goal <130 07/31/2014 Morbid obesity (HCC) Rosacea 09/27/2012 Vitamin D deficiency 08/04/2014 PAST SURGICAL HISTORY Procedure Laterality Date COLONOSCOPY SCREENING 11/28/2021 focal 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 EGD W/O BRSH SPEC VARICIES INJ 11/28/2021 Normal REMOVE TONSILS/ADENOIDS,12+ Y/O TONSILLECTOMY HX FAMILY HISTORY Problem Relation Age of Onset Asthma Mother Hyperlipidemia Mother Osteoporosis Mother Diabetes Father Psoriasis Father Arthritis Father Diabetes Maternal Grandmother Heart Maternal Grandmother tachycardia Hypertension Maternal Grandmother None Maternal Grandfather Asthma Paternal Grandmother Stroke Paternal Grandmother Colon Cancer Maternal Uncle Social History Tobacco Use Smoking status: Never Smokeless tobacco: Never Vaping Use Vaping status: Never Used Substance Use Topics Alcohol use: No Drug use: No Reviewed current medications, allergies, past medical history, surgical history, family history and social history today. REVIEW OF SYSTEMS All other reviewed and negative other than HPI. HEALTH MAINTENANCE: Reviewed health maintenance issues today and recommended the following in detail. Depression Screening Never done VITALS: BP 116/62 Pulse 84 Resp 18 Wt 105.2 kg (232 lb) LMP 04/14/2023 (Exact Date) SpO2 93% BMI 42.43 kg/m Last 4 Encounter Wt Readings: Date: Wt: 12/22/2023 105.2 kg (232 lb) 09/14/2023 102.5 kg (225 lb 15.5 oz) 07/28/2023 104.3 kg (230 lb) 07/20/2023 106.3 kg (234 lb 6.4 oz) PHYSICAL EXAMINATION: General appearance: Well appearing, alert, in no acute distress, well-hydrated, well nourished. Skin: Skin color, texture, turgor normal, no suspicious rashes or lesions Head: Normocephalic, no masses, lesions, tenderness or abnormalities Back: no cva tenderness. Mild muscular tenderness on right lower back. Lungs: Lungs clear to auscultation. No wheezing, rhonchi, rales Heart: RRR without murmur, gallop, or rubs. No ectopy Abdomen: Normal bowel sounds. Mild ruq tenderness. No rebound or guarding. Neg schofield's Extremities: No deformities, edema, skin discoloration, clubbing or cyanosis. Good capillary refill. Musculoskeletal: No joint swelling, deformity, or tenderness. Bruise on on left calf. No redness or warmth. Red flags for re-assessment reviewed with patient in detail. ASSESSMENT/PLAN: 1. RUQ pain - ICD9: 789.01, ICD10: R10.11 (primary diagnosis) - Red flags for re-assessment reviewed with patient in detail. - hold on zepbound. Tylenol prn. Get labs and us. Close follow up. - COMPLETE BLOOD COUNT AND DIFFERENTIAL - COMPREHENSIVE METABOLIC PANEL - LIPASE - LIPID PANEL, NONFASTING - URINALYSIS, WITH MICROSCOPIC - URINE CULTURE - US ABD RIGHT UPPER QUADRANT 2. Hyperlipidemia LDL goal <130 - ICD9: 272.4, ICD10: E78.5 - ATORVASTATIN 20 MG TABLET 3. Screening for depression - ICD9: V79.0, ICD10: Z13.3 - DEPRESSION SCREENING 4. Mild intermittent asthma without complication - ICD9: 493.90, ICD10: J45.20 - stable 5. Obesity, Class III, BMI 40-49.9 (morbid obesity) (HCC) - ICD9: 278.01, ICD10: E66.01 - working on diet. 6. Flank pain - ICD9: 789.09, ICD10: R10.9 - COMPLETE BLOOD COUNT AND DIFFERENTIAL - COMPREHENSIVE METABOLIC PANEL - LIPASE - LIPID PANEL, NONFASTING - URINALYSIS, WITH MICROSCOPIC - URINE CULTURE - US ABD RIGHT UPPER QUADRANT Ariana Bhagat RTO in 7-10 days and prn. documented in this encounter [facility] 11-22-2023 Telephone encounter Note Prescription Refill Information The patient has been identified by name and date of : Yes Caregiver verified no other encounters exist for this prescription request: Yes Caregiver confirmed with patient/requestor that no other refills are due, in the near future, with this provider at this time: Yes The last office visit in the department: 09/14/2023 Does the patient have a future office visit with this provider/department: Yes, 12/22/2023 Requested Prescriptions Pending Prescriptions Disp Refills albuterol HFA (PROVENTIL HFA, VENTOLIN HFA) 90 mcg/actuation inhaler 1 Each 3 Sig: Inhale 2 Puffs as instructed every 4 hours as needed for wheezing/shortness of breath. REDDY Isabel November 22, 2023 10:41 AM [facility] 11-22-2023 Miscellaneous Notes Prescription Refill Information The patient has been identified by name and date of : Yes Caregiver verified no other encounters exist for this prescription request: Yes Caregiver confirmed with patient/requestor that no other refills are due, in the near future, with this provider at this time: Yes The last office visit in the department: 09/14/2023 Does the patient have a future office visit with this provider/department: Yes, 12/22/2023 Requested Prescriptions Pending Prescriptions Disp Refills albuterol HFA (PROVENTIL HFA, VENTOLIN HFA) 90 mcg/actuation inhaler 1 Each 3 Sig: Inhale 2 Puffs as instructed every 4 hours as needed for wheezing/shortness of breath. REDDY Isabel November 22, 2023 10:41 AM documented in this encounter [facility] 10-01-2023 Telephone encounter Note See other te [facility] 10-01-2023 Miscellaneous Notes See other te documented in this encounter [facility] 09-14-2023 History of Present illness Narrative Radiology Service Progress Note PATIENT NAME: Don Rodas DATE OF SERVICE: September 14, 2023 TIME: 11:54 AM PATIENT IDENTITY VERIFICATION COMPLETED USING TWO (2) IDENTIFIERS: Name and Date of confirmed by patient verbally. FALL SCREENING: Has the patient had 2 falls in the last year or 1 fall with injury or currently using an Ambulatory Assistive Device (Walker, Cane, Wheelchair, Crutches, etc.)? No PATIENT GENDER DATA: Female. status: : No status: NO. PATIENT RELEVANT IMPLANT DATA REVIEWED: Yes PATIENT PRESENTS WITH AN IMPLANTABLE OR ATTACHED TIE TAMPER: No RADIOLOGY DEPARTMENT: General X-ray: Exam(s) Completed: Lower Extremity X-Ray(s): Knee, AP / Lat / Tunne / Merchant Left PERIPHERAL IV DATA: Not applicable SIGNED BY: RT Cristine(Bharti) September 14, 2023 11:54 AM documented in this encounter [facility] 09-14-2023 Note HNO ID: [id number] Author: LYDIA PRATT RT(R) Service: ? Author Type: Brewery Pumper Type: Progress Notes Filed: 09/14/2023 12:10 Note Text: Radiology Service Progress Note PATIENT NAME: Don Rodas DATE OF SERVICE: September 14, 2023 TIME: 11:54 AM PATIENT IDENTITY VERIFICATION COMPLETED USING TWO (2) IDENTIFIERS: Name and Date of confirmed by patient verbally. FALL SCREENING: Has the patient had 2 falls in the last year or 1 fall with injury or currently using an Ambulatory Assistive Device (Walker, Cane, Wheelchair, Crutches, etc.)? No PATIENT GENDER DATA: Female. status: : No status: NO. PATIENT RELEVANT IMPLANT DATA REVIEWED: Yes PATIENT PRESENTS WITH AN IMPLANTABLE OR ATTACHED TIE TAMPER: No RADIOLOGY DEPARTMENT: General X-ray: Exam(s) Completed: Lower Extremity X-Ray(s): Knee, AP / Lat / Tunne / Merchant Left PERIPHERAL IV DATA: Not applicable SIGNED BY: Lydia Pratt RT(R) September 14, 2023 11:54 AM [facility] 09-14-2023 Note HNO ID: [id number] Author: ARIANA BHAGAT MD Service: ? Author Type: Physician Type: Progress Notes Filed: 09/14/2023 12:52 Note Text: Patient presents with: Follow Up HPI: Patient presents today for office visit for follow up. Continues on Zepbound 5mg weekly. Day after injection complains of belching with odor like rotten eggs. Other than that tolerating med well. Has lost approx 9lbs since last visit. Denies chest pain and shortness of breath. Denies any swelling. Watching her diet. Discussed her platelets. Saw hematology remotely. Has not changed in over 10 years. Is due for repeat sleep study in lab and declined. Was diagnosed in [place] with lupus. Work up here was negative. Saw rheum. Latest Ref Rng 07/21/2023 WBC 3.70 - 11.00 k/uL 9.23 RBC 3.90 - 5.20 m/uL 5.09 Hemoglobin 11.5 - 15.5 g/dL 14.4 Hematocrit 36.0 - 46.0 % 44.0 MCV 80.0 - 100.0 fL 86.4 MCH 26.0 - 34.0 pg 28.3 MCHC 30.5 - 36.0 g/dL 32.7 RDW-CV 11.5 - 15.0 % 13.0 Platelet Count 150 - 400 k/uL 438 (H) MPV 9.0 - 12.7 fL 10.5 Neut% % 64.2 Abs Neut (ANC) 1.45 - 7.50 k/uL 5.92 Lymph% % 20.0 Abs Lymph 1.00 - 4.00 k/uL 1.85 Wood% % 7.6 Abs Wood <0.87 k/uL 0.70 Eosin% % 7.5 Abs Eosin <0.46 k/uL 0.69 (H) Baso% % 0.4 Abs Baso <0.11 k/uL 0.04 Immature Gran % % 0.3 IMMATURE GRANS (ABS) <0.10 k/uL 0.03 NRBC /100 WBC 0.0 Absolute nRBC <0.01 k/uL <0.01 DTYPE Auto Protein, Total 6.3 - 8.0 g/dL 7.0 Albumin 3.9 - 4.9 g/dL 4.1 Calcium 8.5 - 10.2 mg/dL 9.4 Bilirubin, Total 0.2 - 1.3 mg/dL 0.3 Alkaline Phosphatase 34 - 123 U/L 52 AST 13 - 35 U/L 18 ALT 7 - 38 U/L 12 Glucose 74 - 99 mg/dL 91 BUN 7 - 21 mg/dL 12 Creatinine 0.58 - 0.96 mg/dL 0.67 Sodium 136 - 144 mmol/L 139 Potassium 3.7 - 5.1 mmol/L 4.2 Chloride 98 - 107 mmol/L 106 CO2 22 - 30 mmol/L 21 (L) Anion Gap 8 - 15 mmol/L 12 eGFR >=60 mL/min/1.73m? 118 Cholesterol, Total <200 mg/dL 173 Triglyceride <150 mg/dL 86 HDL Cholesterol >39 mg/dL 49 Non HDL Cholesterol <130 mg/dL 124 Fasting Time hrs 9 VLDL Cholesterol <30 mg/dL 17 TC:HDL Ratio <5.10 3.53 LDL Cholesterol <100 mg/dL 107 (H) LDL:HDL Ratio <2.54 2.18 Vitamin D 25 Hydroxy 31.0 - 80.0 ng/mL 25.1 (L) Legend: (H) High (L) Low MEDICATIONS: Current Outpatient Medications Medication Sig tirzepatide, weight loss (ZEPBOUND) 5 mg/0.5 mL pen injector Inject 5 mg subcutaneously one time a week. tirzepatide, weight loss (ZEPBOUND) 5 mg/0.5 mL pen injector Inject 5 mg subcutaneously one time a week. benzonatate (TESSALON PERLES) 100 mg capsule Take 1 capsule by mouth three times a day as needed for cough. cyclobenzaprine (FLEXERIL) 10 mg tablet Take 1 tablet by mouth three times a day as needed for muscle spasm. fluticasone-vilanterol (BREO ELLIPTA) 200-25 mcg/dose inhaler Inhale 1 Inhalation as instructed once daily. Inhale one puff once daily. DO NOT CLICK OPEN UNTIL READY FOR DOSE EPINEPHrine (EPIPEN) 0.3 mg/0.3 mL auto-injector 0.3 ml subcutaneous as needed for severe allergic reaction/may substitute. albuterol HFA (PROVENTIL HFA, VENTOLIN HFA) 90 mcg/actuation inhaler Inhale 2 Puffs as instructed every 4 hours as needed for wheezing/shortness of breath. atorvastatin (LIPITOR) 20 mg tablet Take 1 tablet by mouth daily at bedtime. For cholesterol. albuterol (PROVENTIL) 2.5 mg /3 mL (0.083 %) nebulizer solution Use 3 mL via nebulizer every 6 hours as needed for wheezing/shortness of breath. Use over 5-15minutes. ergocalciferol 50,000 unit capsule (VITAMIN D2, DRISDOL) Take 1 capsule by mouth one time a week. clotrimazole-betamethasone (LOTRISONE) cream APPLY TO AFFECTED AREA TWICE A DAY multivitamin tablet Take 1 tablet by mouth once daily. ascorbic acid (RANDA-C ORAL) Take 2,000 mg by mouth once daily. Nebulizer 1 Each once daily. NEBULIZER FOR HOME USE. DX: asthma J 45.270 No current facility-administered medications for this visit. ALLERGIES: ALLERGIES Allergen Reactions Shellfish Derived Anaphylaxis Keflex [Cephalexin] Rash Latex Rash Prevnar 20 (Pf) [Pn* Other: See Comments Allergies. PAST MEDICAL HISTORY 09/11/2013: Allergy 09/27/2012: Asthma 08/16/2016: Excessive daytime sleepiness 09/11/2013: Fibrocystic breast disease in female 07/31/2014: Hyperlipidemia LDL goal <130 No date: Morbid obesity (HCC) 09/27/2012: Rosacea 08/04/2014: Vitamin D deficiency PAST SURGICAL HISTORY 11/28/2021: COLONOSCOPY SCREENING Comment: focal 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 11/28/2021: EGD W/O [facility] SPEC VARICIES INJ Comment: Normal No date: REMOVE TONSILS/ADENOIDS,12+ Y/O No date: TONSILLECTOMY HX FAMILY HISTORY Problem Relation Age of Onset Asthma Mother Hyperlipidemia Mother Osteoporosis Mother Diabetes Father Psoriasis Father Arthritis Father Diabetes Maternal Grandmother Heart Maternal Grandmother tachycardia Hypertension Maternal Grandmother None Maternal Grandfather Asthma Paternal Grandmo (more content not included)... [facility] 09-14-2023 History of Present illness Narrative Patient presents with: Follow Up HPI: Patient presents today for office visit for follow up. Continues on Zepbound 5mg weekly. Day after injection complains of belching with odor like rotten eggs. Other than that tolerating med well. Has lost approx 9lbs since last visit. Denies chest pain and shortness of breath. Denies any swelling. Watching her diet. Discussed her platelets. Saw hematology remotely. Has not changed in over 10 years. Is due for repeat sleep study in lab and declined. Was diagnosed in [place] with lupus. Work up here was negative. Saw rheum. Latest Ref Rng 07/21/2023 WBC 3.70 - 11.00 k/uL 9.23 RBC 3.90 - 5.20 m/uL 5.09 Hemoglobin 11.5 - 15.5 g/dL 14.4 Hematocrit 36.0 - 46.0 % 44.0 MCV 80.0 - 100.0 fL 86.4 MCH 26.0 - 34.0 pg 28.3 MCHC 30.5 - 36.0 g/dL 32.7 RDW-CV 11.5 - 15.0 % 13.0 Platelet Count 150 - 400 k/uL 438 (H) MPV 9.0 - 12.7 fL 10.5 Neut% % 64.2 Abs Neut (ANC) 1.45 - 7.50 k/uL 5.92 Lymph% % 20.0 Abs Lymph 1.00 - 4.00 k/uL 1.85 Wood% % 7.6 Abs Wood <0.87 k/uL 0.70 Eosin% % 7.5 Abs Eosin <0.46 k/uL 0.69 (H) Baso% % 0.4 Abs Baso <0.11 k/uL 0.04 Immature Gran % % 0.3 IMMATURE GRANS (ABS) <0.10 k/uL 0.03 NRBC /100 WBC 0.0 Absolute nRBC <0.01 k/uL <0.01 DTYPE Auto Protein, Total 6.3 - 8.0 g/dL 7.0 Albumin 3.9 - 4.9 g/dL 4.1 Calcium 8.5 - 10.2 mg/dL 9.4 Bilirubin, Total 0.2 - 1.3 mg/dL 0.3 Alkaline Phosphatase 34 - 123 U/L 52 AST 13 - 35 U/L 18 ALT 7 - 38 U/L 12 Glucose 74 - 99 mg/dL 91 BUN 7 - 21 mg/dL 12 Creatinine 0.58 - 0.96 mg/dL 0.67 Sodium 136 - 144 mmol/L 139 Potassium 3.7 - 5.1 mmol/L 4.2 Chloride 98 - 107 mmol/L 106 CO2 22 - 30 mmol/L 21 (L) Anion Gap 8 - 15 mmol/L 12 eGFR >=60 mL/min/1.73m 118 Cholesterol, Total <200 mg/dL 173 Triglyceride <150 mg/dL 86 HDL Cholesterol >39 mg/dL 49 Non HDL Cholesterol <130 mg/dL 124 Fasting Time hrs 9 VLDL Cholesterol <30 mg/dL 17 TC:HDL Ratio <5.10 3.53 LDL Cholesterol <100 mg/dL 107 (H) LDL:HDL Ratio <2.54 2.18 Vitamin D 25 Hydroxy 31.0 - 80.0 ng/mL 25.1 (L) Legend: (H) High (L) Low MEDICATIONS: Current Outpatient Medications Medication Sig tirzepatide, weight loss (ZEPBOUND) 5 mg/0.5 mL pen injector Inject 5 mg subcutaneously one time a week. tirzepatide, weight loss (ZEPBOUND) 5 mg/0.5 mL pen injector Inject 5 mg subcutaneously one time a week. benzonatate (TESSALON PERLES) 100 mg capsule Take 1 capsule by mouth three times a day as needed for cough. cyclobenzaprine (FLEXERIL) 10 mg tablet Take 1 tablet by mouth three times a day as needed for muscle spasm. fluticasone-vilanterol (BREO ELLIPTA) 200-25 mcg/dose inhaler Inhale 1 Inhalation as instructed once daily. Inhale one puff once daily. DO NOT CLICK OPEN UNTIL READY FOR DOSE EPINEPHrine (EPIPEN) 0.3 mg/0.3 mL auto-injector 0.3 ml subcutaneous as needed for severe allergic reaction/may substitute. albuterol HFA (PROVENTIL HFA, VENTOLIN HFA) 90 mcg/actuation inhaler Inhale 2 Puffs as instructed every 4 hours as needed for wheezing/shortness of breath. atorvastatin (LIPITOR) 20 mg tablet Take 1 tablet by mouth daily at bedtime. For cholesterol. albuterol (PROVENTIL) 2.5 mg /3 mL (0.083 %) nebulizer solution Use 3 mL via nebulizer every 6 hours as needed for wheezing/shortness of breath. Use over 5-15minutes. ergocalciferol 50,000 unit capsule (VITAMIN D2, DRISDOL) Take 1 capsule by mouth one time a week. clotrimazole-betamethasone (LOTRISONE) cream APPLY TO AFFECTED AREA TWICE A DAY multivitamin tablet Take 1 tablet by mouth once daily. ascorbic acid (RANDA-C ORAL) Take 2,000 mg by mouth once daily. Nebulizer 1 Each once daily. NEBULIZER FOR HOME USE. DX: asthma J 45.909 No current facility-administered medications for this visit. ALLERGIES: ALLERGIES Allergen Reactions Shellfish Derived Anaphylaxis Keflex [Cephalexin] Rash Latex Rash Prevnar 20 (Pf) [Pn* Other: See Comments Allergies. PAST MEDICAL HISTORY 09/11/2013: Allergy 09/27/2012: Asthma 08/16/2016: Excessive daytime sleepiness 09/11/2013: Fibrocystic breast disease in female 07/31/2014: Hyperlipidemia LDL goal <130 No date: Morbid obesity (HCC) 09/27/2012: Rosacea 08/04/2014: Vitamin D deficiency PAST SURGICAL HISTORY 11/28/2021: COLONOSCOPY SCREENING Comment: focal 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 11/28/2021: EGD W/O [facility] SPEC VARICIES INJ Comment: Normal No date: REMOVE TONSILS/ADENOIDS,12+ Y/O No date: TONSILLECTOMY HX FAMILY HISTORY Problem Relation Age of Onset Asthma Mother Hyperlipidemia Mother Osteoporosis Mother Diabetes Father Psoriasis Father Arthritis Father Diabetes Maternal Grandmother Heart Maternal Grandmother tachycardia Hypertension Maternal Grandmother None Maternal Grandfather Asthma Paternal Grandmother Stroke Paternal Grandmother Colon Cancer Maternal Uncle Social History Tobacco Use Smoking status: Never Smokeless tobacco: Never Vaping Use Vaping Use: Never used Substance Use Topics Alcohol use: No Drug use: No Reviewed current medications, allergies, past medical history, surgical history, family history and social history today. REVIEW OF SYSTEMS Had followed with [facility] for bone lesion. Last saw was a year or two and has not followed up. Has occasional back pain. No radicular pain. Has occasional pain. All other reviewed and negative other than HPI. VITALS: BP 98/60 Pulse 70 Ht 157.5 cm (5' 2) Wt 102.5 kg (225 lb 15.5 oz) LMP 04/14/2023 (Exact Date) SpO2 99% BMI 41.33 kg/m Last 4 Encounter Wt Readings: Date: Wt: 09/14/2023 102.5 kg (225 lb 15.5 oz) 07/28/2023 104.3 kg (230 lb) 07/20/2023 106.3 kg (234 lb 6.4 oz) 07/09/2023 106.8 kg (235 lb 7.2 oz) PHYSICAL EXAMINATION: General appearance: Well appearing, alert, in no acute distress, well-hydrated, well nourished. Skin: Skin color, texture, turgor normal, no suspicious rashes or lesions Head: Normocephalic, no masses, lesions, tenderness or abnormalities Neck: Supple, no adenopathy; thyroid symmetric, normal size, no bruits Back: Normal exam Lungs: Lungs clear to auscultation. No wheezing, rhonchi, rales Heart: RRR without murmur, gallop, or rubs. No ectopy Abdomen: Normal abdominal exam, Abdomen soft, non-tender. Bowel sounds normal. No masses, organomegaly Extremities: No deformities, edema, skin discoloration, clubbing or cyanosis. Good capillary refill. ASSESSMENT/PLAN: 1. Bone lesion - ICD9: 733.90, ICD10: M89.9 (primary diagnosis) - will recheck xray at her request. - XR KNEE GENERAL 4V AP BOTH/PA BOTH/LAT/MERC LEFT 2. Dermatitis - ICD9: 692.9, ICD10: L30.9 - asks for cream for itching under her skin folds. calorie - NYSTATIN 100,000 UNIT/GRAM TOPICAL CREAM 3. Hyperlipidemia LDL goal <130 - ICD9: 272.4, ICD10: E78.5 - watch diet. 4. Obesity, Class III, BMI 40-49.9 (morbid obesity) (HCC) - ICD9: 278.01, ICD10: E66.01 - continue wegovy. Benefiting from its use. Recheck in three months. 5. Vitamin D deficiency - ICD9: 268.9, ICD10: E55.9 - stay on meds. 6. Mild intermittent asthma without complication - ICD9: 493.90, ICD10: J45.20 - stable. 7. Thrombocytosis - ICD9: 238.71, ICD10: D75.839 - follow twice a year. Suggested she consider in lab sleep study. Ariana Bhagat MD documented in this encounter [facility] 09-10-2023 Telephone encounter Note PA approved Authorized from September 10, 2023 to May 07, 2024 Dixie Kraus MA [facility] 09-10-2023 Miscellaneous Notes PA approved Authorized from September 10, 2023 to May 07, 2024 Dixie Kraus MA Called and verified with [facility] insurance payer is now [facility]. Completed electronic PA Dixie Kraus MA Previously her insurance was paying for this. Prior auth will be sent once requested after pharmacy receipt. They prior auth department completes those for these type of meds if they are not asking it for diabetic info and patient is not diabetic. If that is the request, there is no need to fill out prior auth and it is a self pay med. Patient also calling in to add to previous message: Her [facility] does not have the Zepbound. a) needs script sent to [facility], pended. b) Needs prior auth completed for this. Please call patient with any updates. [phone] Thank you. [place] message sent by patient. I hope this message finds you well. I am writing to request your assistance in submitting a new prior authorization for my medication to my new insurance provider. I recently changed my insurance, and they require a new prior authorization to approve my medication. Could you please send the necessary documentation to my new insurance company tomorrow ? Please Thank you very much for your help with this matter. I appreciate your time and attention. documented in this encounter [facility] 09-10-2023 Telephone encounter Note Called and verified with l[facility]pez insurance payer is now [employer]. Completed electronic PA Dixie Kraus MA [facility] 09-10-2023 Telephone encounter Note Previously her insurance was paying for this. [facility] 09-10-2023 Telephone encounter Note Prior auth will be sent once requested after pharmacy receipt. They prior auth department completes those for these type of meds if they are not asking it for diabetic info and patient is not diabetic. If that is the request, there is no need to fill out prior auth and it is a self pay med. [facility] 09-10-2023 Telephone encounter Note Patient also calling in to add to previous message: Her [facility] does not have the Zepbound. a) needs script sent to [facility], pended. b) Needs prior auth completed for this. Please call patient with any updates. [phone] Thank you. [facility] 09-10-2023 Telephone encounter Note MyChart message sent by patient. I hope this message finds you well. I am writing to request your assistance in submitting a new prior authorization for my medication to my new insurance provider. I recently changed my insurance, and they require a new prior authorization to approve my medication. Could you please send the necessary documentation to my new insurance company tomorrow ? Please Thank you very much for your help with this matter. I appreciate your time and attention. [facility] 09-10-2023 Telephone encounter Note Phone message sent to [facility]. [facility] 09-10-2023 Miscellaneous Notes Phone message sent to [facility]. documented in this encounter [facility] 09-09-2023 Telephone encounter Note Patient calling with request for medication/refill :Zepbound Inject 5 mg subcutaneously one time a week. Medication needs prior authorization due to patient has a new insurance. [facility]: [phone]. Allergies reviewed: Yes, Medication and Dosage reviewed: Yes/No, Do you have enough medication to last until the office reopens? Yes. , and Have you contacted your pharmacy to ask for enough medication to get by until the office reopens? No. Patient denies any new or worsening symptoms of which a provider is not aware: Yes. Advised to follow up with Dr Lolita when open. [facility] 09-09-2023 Miscellaneous Notes Patient calling with request for medication/refill :Zepbound Inject 5 mg subcutaneously one time a week. Medication needs prior authorization due to patient has a new insurance. [facility]: [phone]. Allergies reviewed: Yes, Medication and Dosage reviewed: Yes/No, Do you have enough medication to last until the office reopens? Yes. , and Have you contacted your pharmacy to ask for enough medication to get by until the office reopens? No. Patient denies any new or worsening symptoms of which a provider is not aware: Yes. Advised to follow up with Dr Lolita when open. documented in this encounter [facility] 09-04-2023 Telephone encounter Note Called [facility] which advised insurance running have [employer] as payee which is old insurance. They re-activated anthem but will call patient and verify info correct so patient doesn't get a back bill Dixie Kraus MA [facility] 09-04-2023 Miscellaneous Notes Called [facility] which advised insurance running have [employer] as payee which is old insurance. They re-activated anthem but will call patient and verify info correct so patient doesn't get a back bill Dixie Kraus MA Patient returned call and given message below. Patient reports she does not want to get medication at mail away pharmacy, she wants to get it at local pharmacy, [facility]. Pharmacy informed patient she would need a PA to get the medication at local pharmacy [facility]. Patient states she is working right now and is going to hang up. States tell the nurses if they call her they need to leave a detailed message, so she doesn't have to call back, because she is working, and patient ended call. Left message for patient to call office back PA on file is approved and that was done with [facility] pharmacy payer [employer]. Patient was notified on 07/15 TE medication is approved so no PA needed but insurance will only cover 28 day supply fills so can not to mail-away. If refill es expensive would be due to probably not meeting deductible yet with plan. Dixie Kraus MA Pt calls office stating she requires PA for Zepbound. She states she switched to [employer] [employer] about a month (or so) ago. From what I can see pt is approved, but does have a copay? She said she is using [facility] for pharmacy, but looks like if she were to use mail away pharmacy may be cheaper? Please advise and I will call pt back. Aristeo Lambert LPN documented in this encounter [facility] 09-04-2023 Telephone encounter Note Patient returned call and given message below. Patient reports she does not want to get medication at mail away pharmacy, she wants to get it at local pharmacy, [facility]. Pharmacy informed patient she would need a PA to get the medication at local pharmacy [facility]. Patient states she is working right now and is going to hang up. States tell the nurses if they call her they need to leave a detailed message, so she doesn't have to call back, because she is working, and patient ended call. [facility] 09-04-2023 Telephone encounter Note Left message for patient to call office back PA on file is approved and that was done with [employer] pharmacy payer [employer]. Patient was notified on 07/15 TE medication is approved so no PA needed but insurance will only cover 28 day supply fills so can not to mail-away. If refill es expensive would be due to probably not meeting deductible yet with plan. Dixie Kraus MA [facility] 09-04-2023 Telephone encounter Note Pt calls office stating she requires PA for Zepbound. She states she switched to [employer] [employer] about a month (or so) ago. From what I can see pt is approved, but does have a copay? She said she is using [facility] for pharmacy, but looks like if she were to use mail away pharmacy may be cheaper? Please advise and I will call pt back. Aristeo Lambert LPN [facility] 07-28-2023 Telephone encounter Note Patient calling with Medication question. Patient given Prednisone taper (Deltasone) in office today and mother states patient had a reaction to another type of steroid in the past but not prednisone. Explained to mom that Prednisone was currently the prescription prescribed today .Patient denies any new or worsening symptoms of which a provider is not aware:Yes [facility] 07-28-2023 Miscellaneous Notes Patient calling with Medication question. Patient given Prednisone taper (Deltasone) in office today and mother states patient had a reaction to another type of steroid in the past but not prednisone. Explained to mom that Prednisone was currently the prescription prescribed today .Patient denies any new or worsening symptoms of which a provider is not aware:Yes documented in this encounter [facility] 07-28-2023 Note HNO ID: [id number] Author: GEORGIE HECK MD Service: ? Author Type: Physician Type: Progress Notes Filed: 07/28/2023 09:56 Note Text: Chief Complaint Patient presents with: asthma flare: Patient reporting asthma flare 2 weeks ago and treated with prednisone. Having flares this week as well tightness and difficulty breathing HPI Don Rodas is a 33 year old female who presents here today for Above Complaints. Patient here today with complaint of recurrent asthma exacerbation symptoms which started yesterday. Was treated through [facility] about 3 weeks ago with prednisone burst x5 days. States that she did feel better while on the prednisone and finished course about 2 weeks ago. Today, has symptoms of chest tightness, SOB, dry coughing, and wheezing. Compliant with Breo inhaler daily and has been using albuterol every 4 hours without complete resolution of her symptoms. States that she had 2 extra pills of prednisone which she took yesterday. Not taking anything OTC for cough. Allergies to dust and pollen will typically trigger her asthma. Admits to chronic nasal congestion. Denies fever/chills, headache, sore throat, myalgias, fatigue, sinus pain/pressure, nausea, vomiting, diarrhea, new loss of taste/smell. No recent sick contacts. Past medical history, appointments, medications, allergies reviewed. 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 EGD W/O [facility] SPEC VARICIES INJ 11/28/2021 Normal REMOVE TONSILS/ADENOIDS,12+ Y/O TONSILLECTOMY HX Family History FAMILY HISTORY Problem Relation Age of Onset Asthma Mother Hyperlipidemia Mother Osteoporosis Mother Diabetes Father Psoriasis Father Arthritis Father Diabetes Maternal Grandmother Heart Maternal Grandmother tachycardia Hypertension Maternal Grandmother None Maternal Grandfather Asthma Paternal Grandmother Stroke Paternal Grandmother Colon Cancer Maternal Uncle Patient Allergies ALLERGIES Allergen Reactions Shellfish Derived Anaphylaxis Keflex [Cephalexin] Rash Latex Rash Prevnar 20 (Pf) [Pn* Other: See Comments Allergies. Current Medications Current Outpatient Medications on File Prior to Visit Medication Sig tirzepatide, weight loss (ZEPBOUND) 5 mg/0.5 mL pen injector Inject 5 mg subcutaneously one time a week. tirzepatide, weight loss (ZEPBOUND) 5 mg/0.5 mL pen injector Inject 5 mg subcutaneously one time a week. benzonatate (TESSALON PERLES) 100 mg capsule Take 1 capsule by mouth three times a day as needed for cough. cyclobenzaprine (FLEXERIL) 10 mg tablet Take 1 tablet by mouth three times a day as needed for muscle spasm. fluticasone-vilanterol (BREO ELLIPTA) 200-25 mcg/dose inhaler Inhale 1 Inhalation as instructed once daily. Inhale one puff once daily. DO NOT CLICK OPEN UNTIL READY FOR DOSE EPINEPHrine (EPIPEN) 0.3 mg/0.3 mL auto-injector 0.3 ml subcutaneous as needed for severe allergic reaction/may substitute. albuterol HFA (PROVENTIL HFA, VENTOLIN HFA) 90 mcg/actuation inhaler Inhale 2 Puffs as instructed every 4 hours as needed for wheezing/shortness of breath. atorvastatin (LIPITOR) 20 mg tablet Take 1 tablet by mouth daily at bedtime. For cholesterol. predniSONE (DELTASONE) 10 mg tablet Take 10 mg by mouth as needed. albuterol (PROVENTIL) 2.5 mg /3 mL (0.083 %) nebulizer solution Use 3 mL via nebulizer every 6 hours as needed for wheezing/shortness of breath. Use over 5-15minutes. ergocalciferol 50,000 unit capsule (VITAMIN D2, DRISDOL) Take 1 capsule by mouth one time a week. clotrimazole-betamethasone (LOTRISONE) cream APPLY TO AFFECTED AREA TWICE A DAY polyethylene glycol 3350 (MIRALAX) 17 gram/dose powder Take 17 g by mouth once daily. Dissolve dose in 4 - 8 ounces of liquid and take as directed. multivitamin tablet Take 1 tablet by mouth once daily. ascorbic acid (RANDA-C ORAL) Take 2,000 mg by mouth once daily. Nebulizer 1 Each once daily. NEBULIZER FOR HOME USE. DX: asthma J 45.909 No current facility-administered medications on file prior to visit. Social History Social History Tobacco Use Smoking status: Never Smokeless tobacco: Never Vaping Use Vaping Use: Never used Substance Use Topics Alcohol use: No Drug use: No Review of Symptoms REVIEW OF SYSTEMS See HPI EXAM: BP 124/66 Pulse 85 Temp 37 ?C (98.6 ?F) Resp 20 Wt 104.3 kg (230 lb) LMP 04/14/2023 (Exact Date) SpO2 96% BMI 42.07 kg/m? General Appearance: Well appearing, alert, in no acute distress, well-hydrated, well (more content not included)... [facility] 07-28-2023 History of Present illness Narrative Chief Complaint Patient presents with: asthma flare: Patient reporting asthma flare 2 weeks ago and treated with prednisone. Having flares this week as well tightness and difficulty breathing HPI Don Rodas is a 33 year old female who presents here today for Above Complaints. Patient here today with complaint of recurrent asthma exacerbation symptoms which started yesterday. Was treated through [facility] about 3 weeks ago with prednisone burst x5 days. States that she did feel better while on the prednisone and finished course about 2 weeks ago. Today, has symptoms of chest tightness, SOB, dry coughing, and wheezing. Compliant with Breo inhaler daily and has been using albuterol every 4 hours without complete resolution of her symptoms. States that she had 2 extra pills of prednisone which she took yesterday. Not taking anything OTC for cough. Allergies to dust and pollen will typically trigger her asthma. Admits to chronic nasal congestion. Denies fever/chills, headache, sore throat, myalgias, fatigue, sinus pain/pressure, nausea, vomiting, diarrhea, new loss of taste/smell. No recent sick contacts. Past medical history, appointments, medications, allergies reviewed. 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 EGD W/O BRSH SPEC VARICIES INJ 11/28/2021 Normal REMOVE TONSILS/ADENOIDS,12+ Y/O TONSILLECTOMY HX Family History FAMILY HISTORY Problem Relation Age of Onset Asthma Mother Hyperlipidemia Mother Osteoporosis Mother Diabetes Father Psoriasis Father Arthritis Father Diabetes Maternal Grandmother Heart Maternal Grandmother tachycardia Hypertension Maternal Grandmother None Maternal Grandfather Asthma Paternal Grandmother Stroke Paternal Grandmother Colon Cancer Maternal Uncle Patient Allergies ALLERGIES Allergen Reactions Shellfish Derived Anaphylaxis Keflex [Cephalexin] Rash Latex Rash Prevnar 20 (Pf) [Pn* Other: See Comments Allergies. Current Medications Current Outpatient Medications on File Prior to Visit Medication Sig tirzepatide, weight loss (ZEPBOUND) 5 mg/0.5 mL pen injector Inject 5 mg subcutaneously one time a week. tirzepatide, weight loss (ZEPBOUND) 5 mg/0.5 mL pen injector Inject 5 mg subcutaneously one time a week. benzonatate (TESSALON PERLES) 100 mg capsule Take 1 capsule by mouth three times a day as needed for cough. cyclobenzaprine (FLEXERIL) 10 mg tablet Take 1 tablet by mouth three times a day as needed for muscle spasm. fluticasone-vilanterol (BREO ELLIPTA) 200-25 mcg/dose inhaler Inhale 1 Inhalation as instructed once daily. Inhale one puff once daily. DO NOT CLICK OPEN UNTIL READY FOR DOSE EPINEPHrine (EPIPEN) 0.3 mg/0.3 mL auto-injector 0.3 ml subcutaneous as needed for severe allergic reaction/may substitute. albuterol HFA (PROVENTIL HFA, VENTOLIN HFA) 90 mcg/actuation inhaler Inhale 2 Puffs as instructed every 4 hours as needed for wheezing/shortness of breath. atorvastatin (LIPITOR) 20 mg tablet Take 1 tablet by mouth daily at bedtime. For cholesterol. predniSONE (DELTASONE) 10 mg tablet Take 10 mg by mouth as needed. albuterol (PROVENTIL) 2.5 mg /3 mL (0.083 %) nebulizer solution Use 3 mL via nebulizer every 6 hours as needed for wheezing/shortness of breath. Use over 5-15minutes. ergocalciferol 50,000 unit capsule (VITAMIN D2, DRISDOL) Take 1 capsule by mouth one time a week. clotrimazole-betamethasone (LOTRISONE) cream APPLY TO AFFECTED AREA TWICE A DAY polyethylene glycol 3350 (MIRALAX) 17 gram/dose powder Take 17 g by mouth once daily. Dissolve dose in 4 - 8 ounces of liquid and take as directed. multivitamin tablet Take 1 tablet by mouth once daily. ascorbic acid (RANDA-C ORAL) Take 2,000 mg by mouth once daily. Nebulizer 1 Each once daily. NEBULIZER FOR HOME USE. DX: asthma J 45.027 No current facility-administered medications on file prior to visit. Social History Social History Tobacco Use Smoking status: Never Smokeless tobacco: Never Vaping Use Vaping Use: Never used Substance Use Topics Alcohol use: No Drug use: No Review of Symptoms REVIEW OF SYSTEMS See HPI EXAM: BP 124/66 Pulse 85 Temp 37 C (98.6 F) Resp 20 Wt 104.3 kg (230 lb) LMP 04/14/2023 (Exact Date) SpO2 96% BMI 42.07 kg/m General Appearance: Well appearing, alert, in no acute distress, well-hydrated, well nourished.. Skin: Skin color, texture, turgor normal, no suspicious rashes or lesions. Head: Normocephalic, no masses, lesions, tenderness or abnormalities. Eyes: Anicteric sclera. Pupils are equally round and reactive to light. Extraocular movements are intact. . Ears: External ears normal, canals clear. Nose/Sinuses: Nares normal, septum midline, mucosa normal, no drainage or sinus tenderness. Oropharynx: Lips, mucosa, and tongue normal, teeth and gums normal, oropharynx normal. Neck: Supple, no adenopathy; thyroid symmetric, normal size, no bruits. Lungs: mildly decreased air entry bilaterally without rales, rhonchi, wheezing or consolidation. Heart: RRR without murmur, gallop, or rubs. No ectopy. Health Maintenance List Behavioral Health Screening Never done Spirometry due on 09/08/2023 Influenza Vaccine(Season Ended) due on 10/07/2023 Annual PCP Team Chronic Disease Visit due on 07/19/2024 Cervical Cancer Screening due on 01/19/2027 DTaP,Tdap,Td Vaccine(3 - Td or Tdap) due on 08/07/2028 Hepatitis C Screening Completed HIV Screening Completed Covid-19 Vaccine Completed HPV Vaccine Aged Out Hepatitis B Vaccine Discontinued ASSESSMENT/PLAN: 1. Moderate persistent asthma with (acute) exacerbation - ICD9: 493.92, ICD10: J45.41 - Moderate persistent asthma acute excacerbation without status - Albuterol 2 puffs with spacer prn - Exacerbation treatment of prednisone taper - Avoidance of triggers recommended Red flags for re-assessment reviewed with patient in detail. F/u with PCP for PFTs. Georgie Heck MD documented in this encounter [facility] 07-23-2023 Telephone encounter Note Change of pharmacy. [facility] 07-23-2023 Miscellaneous Notes Change of pharmacy. documented in this encounter [facility] 07-20-2023 Telephone encounter Note Reason for Call: Pt is completely out of Zepbound and needs a dose this weekend. Rx was sent to mail order and she wants it changed to [facility] in [place] at [phone]. Outcome: Advised I will message provider and to call office in the morning. [facility] 07-20-2023 Miscellaneous Notes Reason for Call: Pt is completely out of Zepbound and needs a dose this weekend. Rx was sent to mail order and she wants it changed to [facility] in [place] at [phone]. Outcome: Advised I will message provider and to call office in the morning. documented in this encounter [facility] 07-20-2023 Telephone encounter Note Patient calls and states that medication was never sent to [facility]. Looks like it was done as medication update. Patient asking if provider can send to pharmacy?\ The patient has been identified by name and date of : Yes Caregiver verified no other encounters exist for this prescription request: Yes Caregiver confirmed with patient/requestor that no other refills are due, in the near future, with this provider at this time: Yes The last office visit in the department: 07/20/2023 Does the patient have a future office visit with this provider/department: Yes 09/14/2023 Requested Prescriptions Pending Prescriptions Disp Refills tirzepatide, weight loss (ZEPBOUND) 5 mg/0.5 mL pen injector 2 mL 5 Sig: Inject 5 mg subcutaneously one time a week. Deena Mclaughlin RN July 20, 2023 4:57 PM [facility] 07-20-2023 Miscellaneous Notes Patient calls and states that medication was never sent to [facility]. Looks like it was done as medication update. Patient asking if provider can send to pharmacy?\ The patient has been identified by name and date of : Yes Caregiver verified no other encounters exist for this prescription request: Yes Caregiver confirmed with patient/requestor that no other refills are due, in the near future, with this provider at this time: Yes The last office visit in the department: 07/20/2023 Does the patient have a future office visit with this provider/department: Yes 09/14/2023 Requested Prescriptions Pending Prescriptions Disp Refills tirzepatide, weight loss (ZEPBOUND) 5 mg/0.5 mL pen injector 2 mL 5 Sig: Inject 5 mg subcutaneously one time a week. Deena Mclaughlin RN July 20, 2023 4:57 PM documented in this encounter [facility] 07-20-2023 History of Present illness Narrative Patient presents with: Follow Up HPI: Patient presents today for office visit for follow up for refill on Zepbound. Reports she is tolerating well. Per insurance they will only continue to cover if dose is increased. Has not lost anymore weight. States she's gained 10 lbs. Now on zepbound. No side effects. No chest pain or shortness of breath. No edema. Stopped zepbound for a week and was on prednisone and her appetite picked up. Has a few skin areas on her right face for a few weeks. Appears benign for now. Call if symptoms worsen at all or if not better in one to two weeks Red flags for re-assessment reviewed with patient in detail. Has occasional dependent edema. Discussed elevating legs and continuing weight losss. MEDICATIONS: Current Outpatient Medications Medication Sig tirzepatide, weight loss (ZEPBOUND) 2.5 mg/0.5 mL pen injector Inject 2.5 mg subcutaneously one time a week. benzonatate (TESSALON PERLES) 100 mg capsule Take 1 capsule by mouth three times a day as needed for cough. cyclobenzaprine (FLEXERIL) 10 mg tablet Take 1 tablet by mouth three times a day as needed for muscle spasm. fluticasone-vilanterol (BREO ELLIPTA) 200-25 mcg/dose inhaler Inhale 1 Inhalation as instructed once daily. Inhale one puff once daily. DO NOT CLICK OPEN UNTIL READY FOR DOSE EPINEPHrine (EPIPEN) 0.3 mg/0.3 mL auto-injector 0.3 ml subcutaneous as needed for severe allergic reaction/may substitute. albuterol HFA (PROVENTIL HFA, VENTOLIN HFA) 90 mcg/actuation inhaler Inhale 2 Puffs as instructed every 4 hours as needed for wheezing/shortness of breath. atorvastatin (LIPITOR) 20 mg tablet Take 1 tablet by mouth daily at bedtime. For cholesterol. predniSONE (DELTASONE) 10 mg tablet Take 10 mg by mouth as needed. albuterol (PROVENTIL) 2.5 mg /3 mL (0.083 %) nebulizer solution Use 3 mL via nebulizer every 6 hours as needed for wheezing/shortness of breath. Use over 5-15minutes. ergocalciferol 50,000 unit capsule (VITAMIN D2, DRISDOL) Take 1 capsule by mouth one time a week. clotrimazole-betamethasone (LOTRISONE) cream APPLY TO AFFECTED AREA TWICE A DAY polyethylene glycol 3350 (MIRALAX) 17 gram/dose powder Take 17 g by mouth once daily. Dissolve dose in 4 - 8 ounces of liquid and take as directed. multivitamin tablet Take 1 tablet by mouth once daily. ascorbic acid (RANDA-C ORAL) Take 2,000 mg by mouth once daily. Nebulizer 1 Each once daily. NEBULIZER FOR HOME USE. DX: asthma J 45.133 No current facility-administered medications for this visit. ALLERGIES: ALLERGIES Allergen Reactions Shellfish Derived Anaphylaxis Keflex [Cephalexin] Rash Latex Rash Prevnar 20 (Pf) [Pn* Other: See Comments Allergies. PAST MEDICAL HISTORY Diagnosis Date Allergy 09/11/2013 Asthma 09/27/2012 Excessive daytime sleepiness 08/16/2016 Fibrocystic breast disease in female 09/11/2013 Hyperlipidemia LDL goal <130 07/31/2014 Morbid obesity (HCC) Rosacea 09/27/2012 Vitamin D deficiency 08/04/2014 PAST SURGICAL HISTORY Procedure Laterality Date COLONOSCOPY SCREENING 11/28/2021 focal 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 EGD W/O BRSH SPEC VARICIES INJ 11/28/2021 Normal REMOVE TONSILS/ADENOIDS,12+ Y/O TONSILLECTOMY HX FAMILY HISTORY Problem Relation Age of Onset Asthma Mother Hyperlipidemia Mother Osteoporosis Mother Diabetes Father Psoriasis Father Arthritis Father Diabetes Maternal Grandmother Heart Maternal Grandmother tachycardia Hypertension Maternal Grandmother None Maternal Grandfather Asthma Paternal Grandmother Stroke Paternal Grandmother Colon Cancer Maternal Uncle Social History Tobacco Use Smoking status: Never Smokeless tobacco: Never Vaping Use Vaping Use: Never used Substance Use Topics Alcohol use: No Drug use: No Reviewed current medications, allergies, past medical history, surgical history, family history and social history today. REVIEW OF SYSTEMS All other reviewed and negative other than HPI. HEALTH MAINTENANCE: Reviewed health maintenance issues today and recommended the following in detail. Behavioral Health Screening Never done VITALS: BP 90/64 Pulse 78 Ht 157.5 cm (5' 2) Wt 106.3 kg (234 lb 6.4 oz) LMP 04/14/2023 (Exact Date) SpO2 97% BMI 42.87 kg/m Last 4 Encounter Wt Readings: Date: Wt: 07/09/2023 106.8 kg (235 lb 7.2 oz) 05/10/2023 103 kg (227 lb 1.2 oz) 05/09/2023 102.1 kg (225 lb 1.4 oz) 05/01/2023 102.1 kg (225 lb) PHYSICAL EXAMINATION: General appearance: Well appearing, alert, in no acute distress, well-hydrated, well nourished. Skin: Skin color, texture, turgor normal, no suspicious rashes or lesions Lungs: Lungs clear to auscultation. No wheezing, rhonchi, rales Heart: RRR without murmur, gallop, or rubs. No ectopy Abdomen: Normal abdominal exam, Abdomen soft, non-tender. Bowel sounds normal. No masses, organomegaly Extremities: No deformities, edema, skin discoloration, clubbing or cyanosis. Good capillary refill. ASSESSMENT/PLAN: 1. Hyperlipidemia LDL goal <130 - ICD9: 272.4, ICD10: E78.5 (primary diagnosis) - follow labs. - COMPLETE BLOOD COUNT AND DIFFERENTIAL - COMPREHENSIVE METABOLIC PANEL - LIPID PANEL BASIC 2. Obesity, Class III, BMI 40-49.9 (morbid obesity) (HCC) - ICD9: 278.01, ICD10: E66.01 - increase dose of zepbound and call with update in one month. Follow up in two months. 3. Vitamin D deficiency - ICD9: 268.9, ICD10: E55.9 - VITAMIN D 25 HYDROXY 4. Mild intermittent asthma without complication - ICD9: 493.90, ICD10: J45.20 - stable RTO in two month or prn. documented in this encounter [facility] 07-16-2023 Telephone encounter Note Patient states that the Zepbound needs to go to [facility] and not [facility]. Appointment scheduled 07/20/2023. [facility] 07-16-2023 Miscellaneous Notes Patient states that the Zepbound needs to go to [facility] and not [facility]. Appointment scheduled 07/20/2023. documented in this encounter [facility] 07-16-2023 Miscellaneous Notes [facility] and spoke to rep to push through approval for 84 day supply. Was notified insurance plan will only cover 28 day supply only. Please re-send, patient notified and aware can not do 84 days Dixie Kraus MA Pt calls to report that [facility] needs three month supply with 3 refills for Zepbound. Pt reports they need authorization. It was hard to understand pt and if a prior authorization is needed for Zepbound or if a new rx needs sent with three months and three refills. Please review if this medication needs a prior authorization. Per pt's chart it shows prior auth was addressed but pt is still stating something is needed. Sadie Juarez LPN documented in this encounter [facility] 07-16-2023 Telephone encounter Note [facility] and spoke to rep to push through approval for 84 day supply. Was notified insurance plan will only cover 28 day supply only. Please re-send, patient notified and aware can not do 84 days Dixie Kraus MA [facility] 07-16-2023 Telephone encounter Note Pt calls to report that [facility] needs three month supply with 3 refills for Zepbound. Pt reports they need authorization. It was hard to understand pt and if a prior authorization is needed for Zepbound or if a new rx needs sent with three months and three refills. Please review if this medication needs a prior authorization. Per pt's chart it shows prior auth was addressed but pt is still stating something is needed. Sadie Juarez LPN [facility] 07-09-2023 Instructions Erica Leonard APRN.PIPELINE INTEGRITY ENGINEER - 07/09/2023 12:52 PM EDT ASSESSMENT/PLAN: 1. Mild intermittent asthma with acute exacerbation - ICD9: 493.92, ICD10: J45.21 - continue medication (prednisone) as prescribed at yesterday's virtual visit. - may use nebulizer every 6-8 hours as needed. - Follow-up with your PCP in 3-5 days if symptoms have not improved or sooner if symptoms worsen - Discussed red flags and need for immediate medical evaluation if any occur. - Discussed supportive care treatment with fluids, rest and analgesia. - Discussed expected course of illness Erica Leonard APRN.PIPELINE INTEGRITY ENGINEER documented in this encounter [facility] 07-09-2023 History of Present illness Narrative Subjective Cough Associated symptoms include shortness of breath and wheezing. Pertinent negatives include no chills, no ear pain, no sore throat and no myalgias. Don Rodas is a 33 year old female who presents with a cough, asthma exacerbation symptoms for the past 5 days. She was seen online yesterday with [facility] and prescribed prednisone 40 mg daily x 5 days. She has taken one dose of this and seems a little better today. She used her nebulizer once last night. She denies fever, chills, or fatigue. Cough is productive. Review of Systems Constitutional: Negative for chills, fever and malaise/fatigue. HENT: Negative for congestion, ear pain and sore throat. Respiratory: Positive for cough, sputum production, shortness of breath and wheezing. Cardiovascular: Negative. Musculoskeletal: Negative for myalgias. BP 112/64 Pulse 79 Temp 37.1 C (98.8 F) (Tympanic) Resp 18 Wt 106.8 kg (235 lb 7.2 oz) LMP 04/14/2023 (Exact Date) SpO2 98% BMI 42.78 kg/m PAST MEDICAL HISTORY Diagnosis Date Allergy 09/11/2013 Asthma 09/27/2012 Excessive daytime sleepiness 08/16/2016 Fibrocystic breast disease in female 09/11/2013 Hyperlipidemia LDL goal <130 07/31/2014 Morbid obesity (HCC) Rosacea 09/27/2012 Vitamin D deficiency 08/04/2014 PAST SURGICAL HISTORY Procedure Laterality Date COLONOSCOPY SCREENING 11/28/2021 focal 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 EGD W/O BRSH SPEC VARICIES INJ 11/28/2021 Normal REMOVE TONSILS/ADENOIDS,12+ Y/O TONSILLECTOMY HX ALLERGIES Shellfish Derived, Keflex [Cephalexin], Latex, and Prevnar 20 (Pf) [Pneumoc 20-Gunjan Conj-Dip Cr(Pf)] MEDICATIONS predniSONE (DELTASONE) 20 mg tablet Take 2 tablets by mouth once daily for 5 days. benzonatate (TESSALON PERLES) 100 mg capsule Take 1 capsule by mouth three times a day as needed for cough. cyclobenzaprine (FLEXERIL) 10 mg tablet Take 1 tablet by mouth three times a day as needed for muscle spasm. fluticasone-vilanterol (BREO ELLIPTA) 200-25 mcg/dose inhaler Inhale 1 Inhalation as instructed once daily. Inhale one puff once daily. DO NOT CLICK OPEN UNTIL READY FOR DOSE tirzepatide, weight loss (ZEPBOUND) 2.5 mg/0.5 mL pen injector Inject 2.5 mg subcutaneously one time a week. EPINEPHrine (EPIPEN) 0.3 mg/0.3 mL auto-injector 0.3 ml subcutaneous as needed for severe allergic reaction/may substitute. albuterol HFA (PROVENTIL HFA, VENTOLIN HFA) 90 mcg/actuation inhaler Inhale 2 Puffs as instructed every 4 hours as needed for wheezing/shortness of breath. atorvastatin (LIPITOR) 20 mg tablet Take 1 tablet by mouth daily at bedtime. For cholesterol. predniSONE (DELTASONE) 10 mg tablet Take 10 mg by mouth as needed. albuterol (PROVENTIL) 2.5 mg /3 mL (0.083 %) nebulizer solution Use 3 mL via nebulizer every 6 hours as needed for wheezing/shortness of breath. Use over 5-15minutes. ergocalciferol 50,000 unit capsule (VITAMIN D2, DRISDOL) Take 1 capsule by mouth one time a week. clotrimazole-betamethasone (LOTRISONE) cream APPLY TO AFFECTED AREA TWICE A DAY polyethylene glycol 3350 (MIRALAX) 17 gram/dose powder Take 17 g by mouth once daily. Dissolve dose in 4 - 8 ounces of liquid and take as directed. multivitamin tablet Take 1 tablet by mouth once daily. ascorbic acid (RANDA-C ORAL) Take 2,000 mg by mouth once daily. Nebulizer 1 Each once daily. NEBULIZER FOR HOME USE. DX: asthma J 45.263 FAMILY HISTORY Problem Relation Age of Onset Asthma Mother Hyperlipidemia Mother Osteoporosis Mother Diabetes Father Psoriasis Father Arthritis Father Diabetes Maternal Grandmother Heart Maternal Grandmother tachycardia Hypertension Maternal Grandmother None Maternal Grandfather Asthma Paternal Grandmother Stroke Paternal Grandmother Colon Cancer Maternal Uncle Social History Tobacco Use Smoking status: Never Smokeless tobacco: Never Vaping Use Vaping Use: Never used Substance Use Topics Alcohol use: No Drug use: No Objective Physical Exam Vitals and nursing note reviewed. Constitutional: Appearance: Normal appearance. Cardiovascular: Rate and Rhythm: Normal rate and regular rhythm. Heart sounds: Normal heart sounds. Pulmonary: Effort: Pulmonary effort is normal. No respiratory distress. Breath sounds: Wheezing (few, scattered) present. No rhonchi or rales. Skin: General: Skin is warm and dry. Neurological: Mental Status: She is alert. ASSESSMENT/PLAN: 1. Mild intermittent asthma with acute exacerbation - ICD9: 493.92, ICD10: J45.21 - continue medication (prednisone) as prescribed at yesterday's virtual visit. - may use nebulizer every 6-8 hours as needed. - Follow-up with your PCP in 3-5 days if symptoms have not improved or sooner if symptoms worsen - Discussed red flags and need for immediate medical evaluation if any occur. - Discussed supportive care treatment with fluids, rest and analgesia. - Discussed expected course of illness Erica Leonard APRN.PIPELINE INTEGRITY ENGINEER documented in this encounter [facility] 07-08-2023 Instructions Jenny Malik APRN.CNP - 07/08/2023 6:49 PM EDT [facility] PATIENT INFO COMMON COLD OVERVIEW The common cold is one of the most frequent illnesses in the [place]. Although most colds are mild and resolve within a short time period, colds cost billions of dollars per year, mostly due to lost time at work and school. COMMON COLD CAUSES The common cold is a group of symptoms caused by one of a large number of viruses. Rhinoviruses cause the greatest number of colds; there are more than 100 different varieties of rhinovirus. Most viruses cause a person to be ill only once. However, due to the large number of viruses, a person can have a cold multiple times throughout his or her lifetime. The average adult experiences two to three colds per year, while children average 8 to 12 colds per year. Colds are transmitted from fskvoc-qn-lobbla. Less often, the virus can be transmitted by touching a surface. Direct contact -- People with colds typically carry the cold virus on their hands. The virus may remain alive on the skin and capable of infecting another person for at least two hours. Thus, if a sick person shakes someone's hand and that individual then touches his eye, nose, or mouth, the virus can be transmitted and later infect that person. Infection from particles on surfaces -- Some cold viruses can live on surfaces (such as a counter top, door handle, or phone) for several hours. Inhaling viral particles -- Droplets containing viral particles can be breathed, coughed, or sneezed into the air by a person with a cold. The virus can be transmitted to others if another person is standing close (a few feet) and the droplet touches that person s eye, nose, or mouth. Covering the mouth while coughing or sneezing greatly reduces this risk. Most cold viruses are not spread by saliva. Thus, kissing itself is not likely to transmit the common cold, but close direct contact can. Colds are not caused by cold climates or being exposed to cold air. However, some types of virus cause more colds during certain seasons (eg, fall and winter versus spring). COMMON COLD SIGNS AND SYMPTOMS The common cold usually causes nasal congestion, runny nose, and sneezing. A sore throat may be present on the first day but usually resolves quickly. If a cough occurs, it generally develops on about the fourth or fifth day of symptoms, typically when congestion and runny nose are usually resolving. COMMON COLD COMPLICATIONS In most cases, colds do not cause serious illness. Most colds last for three to seven days, although many people continue to have symptoms (coughing, sneezing, congestion) for up to two weeks. Some viruses that cause the common cold can also depress the immune system or cause swelling in the lining of the nose or airways; this can, in turn, lead to a new viral infection or bacterial infection. One of the more common complications is sinusitis, which is usually caused by viruses and rarely (about 2 percent of the time) by bacteria. However, it can be difficult to distinguish bacterial sinusitis from sinusitis caused by a cold because the signs and symptoms can be similar Having thick or yellow to green-colored nasal discharge does not mean that bacterial sinusitis has developed; discolored nasal discharge is a normal phase of the common cold. Lower respiratory infections, such as pneumonia or bronchitis, may develop following a cold. Infection of the middle ear, or otitis media, can accompany or follow a cold. The influenza virus, which causes the flu, can also cause features similar to those of a cold. However, the flu usually causes other signs and symptoms (fever, body aches) and is more serious than a cold. COMMON COLD TREATMENT There is no specific treatment for the viruses that cause the common cold. Most treatments are aimed at relieving some of the symptoms of the cold, but do not shorten or cure the cold. Antibiotics are not useful for treating the common cold; antibiotics are only used to treat illnesses caused by bacteria, not viruses. The symptoms of a cold will resolve over time, even without any treatment. The following are treatments that may reduce the symptoms caused by the common cold. People with underlying medical conditions and those who use other wekq-dlq-zttravx or prescription medications should speak with their healthcare provider or pharmacist to ensure that it is safe to use these treatments. Runny nose and nasal congestion -- Runny nose and congestion may improve with the use of decongestants. Pseudoephedrine is a decongestant that can improve nasal congestion. Most drugstores in the [place] carry pseudoephedrine behind the counter, so it must be requested from the pharmacist (a prescription is not required). Antihistamines such as diphenhydramine (Benadryl ) may also help, but can cause side effects such as drowsiness and drying of the eyes, nose, and mouth. Nasal inhalers, including ipratropium bromide (Atrovent , available by prescription) may relieve runny nose and sneezing while cromolyn sodium (NasalCrom , a non-prescription medicine) may relieve runny nose, cough, and sneezing. Other nasal sprays such an oxymetazoline (Afrin and others) can also give temporary relief of nasal congestion. However, these sprays should never be used for more than two to three days; use for more than three days use can worsen congestion. Nasal irrigation and saline sprays -- Rinsing the nose with a salt-water (saline) solution is called nasal irrigation or nasal lavage. Saline is also available in a standard nasal spray, although this is not as effective as using larger amounts of water in an irrigation. Nasal irrigation is particularly useful for treating drainage down the back of the throat, sneezing, nasal dryness, and congestion. The treatment helps by rinsing out allergens and irritants from the nose. Saline rinses also clean the nasal lining and can be used before applying sprays containing medications, to get a better effect from the medication. Nasal lavage with warmed saline can be performed as needed, once per day, or twice daily for increased symptoms. Nasal lavage carries few risks when performed correctly. Saline nasal sprays and irrigation kits can be purchased clux-hha-ppvgrfr. Saline mixes can also be purchased or patients can make their own solution. A variety of devices, including bulb syringes, Neti pots, and bottle sprayers, may be used to perform nasal lavage; instructions for nasal lavage are provided in the table. At least 200 mL (about 3/4 cup) of fluid is recommended for each nostril. Sore throat and headache -- Sore throat and headache are best treated with a mild pain reliever such as acetaminophen (Tylenol ) or a non-steroidal anti-inflammatory agent such as ibuprofen or naproxen (Motrin or Aleve ). Cough -- Common cough medicine ingredients include guaifenesin and dextromethorphan; these are often combined with other medications in zjrr-nex-slazkoh cold formulas. However, the benefit of cough medicines is likely to be small to non-existent. In clinical trials, cough suppressants were no more effective in reducing the duration or severity of coughing due to cold than a placebo (a non-drug substitute). Antibiotics -- Antibiotics should not be used to treat an uncomplicated common cold. As noted above, colds are caused by viruses. Antibiotics treat bacterial, not viral infections. Alternative treatments -- Heated, humidified air can improve symptoms of nasal congestion and runny nose, and causes few to no side effects. PREVENTION Hand washing is an essential and highly effective way to prevent the spread of infection. Hands should be wet with water and plain soap, and rubbed together for 15 to 30 seconds. Special attention should be paid to the fingernails, between the fingers, and the wrists. Hands should be rinsed thoroughly, and dried with a single use towel. Alcohol-based hand rubs are a good alternative for disinfecting hands if a sink is not available. Hand rubs should be spread over the entire surface of hands, fingers, and wrists until dry, and may be used several times. These rubs can be used repeatedly without skin irritation or loss of effectiveness. Hand rubs are available as a liquid or wipe in small, portable sizes that are easy to carry in a pocket or handbag. When a sink is available, visibly soiled hands should be washed with soap and water. Hands should be washed before preparing food and eating, and after coughing, blowing the nose, or sneezing. While it is not always possible to limit contact with people who may be infected with a cold, touching the eyes, nose, or mouth after direct contact should be avoided when possible. In addition, tissues should be used to cover the mouth when sneezing or coughing. These used tissues should be disposed of promptly. Sneezing/coughing into the sleeve of one's clothing (at the inner elbow) is another means of containing sprays of saliva and secretions and does not contaminate the hands. SUMMARY The average adult experiences two to three colds per year, while children average 8 to 12 colds per year. Symptoms of the common cold usually include nasal congestion, runny nose, and sneezing. They typically last for three to seven days, although many people have symptoms (coughing, sneezing, congestion) for up to two weeks. People with colds typically carry the cold virus on their hands, where it can infect another person for at least two hours. Some cold viruses can live on surfaces (such as a counter top, door handle, or phone) for several hours. Droplets containing viral particles can be breathed, coughed, or sneezed into the air. There is no specific treatment for colds. Treatment may reduce some of the symptoms of the cold, but do not shorten or cure the cold. Antibiotics are not useful for treating the common cold. Hand washing can prevent the spread of infection. Hands should be wet with water and plain soap, and rubbed together for 15 to 30 seconds. Alcohol-based hand rubs are a good alternative for disinfecting hands if a sink is not available documented in this encounter [facility] 07-08-2023 History of Present illness Narrative Telemedicine Visit - Distance Health Virtual Visit Note Patient seen on [employer] Video Visit platform. Location of patient: [place] I have communicated my name and active licensure. The patient's identity and physical location were verified at the time of this visit. Either the patient or their legal agency service representative has been informed of the risks and benefits of -- and alternatives to -- treatment through a remote evaluation and consents to proceed with the evaluation remotely. History of Present Illness Don Rodas is a 33 year old female who presents for the past 2 days with symptoms that are:constant. C/o asthma Has a cough that is productive. Reports SOB with activity and wheezing. Tried albuterol nebulizer x 1 without relief. Had left over prednisone and took 10 mg around 1600. At home COVID negative x 2 Symptoms include: Positive for Cough, SOB, Wheezing, Nasal congestion, and Diarrhea, Negative for Fever, Chills/Sweats, Hemoptysis, PND, Face pain/pressure, Headache, Teeth pain , Otalgia, Sore throat, Nausea, Emesis, and Diarrhea Oral intake: eating and drinking Tobacco use: No Sick contacts: No Recent travel: No OTC meds/remedies that patient has tried: nebulizer; prednisone PAST MEDICAL HISTORY Diagnosis Date Allergy 09/11/2013 Asthma 09/27/2012 Excessive daytime sleepiness 08/16/2016 Fibrocystic breast disease in female 09/11/2013 Hyperlipidemia LDL goal <130 07/31/2014 Morbid obesity (HCC) Rosacea 09/27/2012 Vitamin D deficiency 08/04/2014 PAST SURGICAL HISTORY Procedure Laterality Date COLONOSCOPY SCREENING 11/28/2021 focal 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 EGD W/O BRSH SPEC VARICIES INJ 11/28/2021 Normal REMOVE TONSILS/ADENOIDS,12+ Y/O TONSILLECTOMY HX FAMILY HISTORY Problem Relation Age of Onset Asthma Mother Hyperlipidemia Mother Osteoporosis Mother Diabetes Father Psoriasis Father Arthritis Father Diabetes Maternal Grandmother Heart Maternal Grandmother tachycardia Hypertension Maternal Grandmother None Maternal Grandfather Asthma Paternal Grandmother Stroke Paternal Grandmother Colon Cancer Maternal Uncle Social History Tobacco Use Smoking status: Never Smokeless tobacco: Never Vaping Use Vaping Use: Never used Substance Use Topics Alcohol use: No Drug use: No Current Outpatient Medications Medication Sig benzonatate (TESSALON PERLES) 100 mg capsule Take 1 capsule by mouth three times a day as needed for cough. cyclobenzaprine (FLEXERIL) 10 mg tablet Take 1 tablet by mouth three times a day as needed for muscle spasm. fluticasone-vilanterol (BREO ELLIPTA) 200-25 mcg/dose inhaler Inhale 1 Inhalation as instructed once daily. Inhale one puff once daily. DO NOT CLICK OPEN UNTIL READY FOR DOSE tirzepatide, weight loss (ZEPBOUND) 2.5 mg/0.5 mL pen injector Inject 2.5 mg subcutaneously one time a week. EPINEPHrine (EPIPEN) 0.3 mg/0.3 mL auto-injector 0.3 ml subcutaneous as needed for severe allergic reaction/may substitute. albuterol HFA (PROVENTIL HFA, VENTOLIN HFA) 90 mcg/actuation inhaler Inhale 2 Puffs as instructed every 4 hours as needed for wheezing/shortness of breath. atorvastatin (LIPITOR) 20 mg tablet Take 1 tablet by mouth daily at bedtime. For cholesterol. predniSONE (DELTASONE) 10 mg tablet Take 10 mg by mouth as needed. albuterol (PROVENTIL) 2.5 mg /3 mL (0.083 %) nebulizer solution Use 3 mL via nebulizer every 6 hours as needed for wheezing/shortness of breath. Use over 5-15minutes. ergocalciferol 50,000 unit capsule (VITAMIN D2, DRISDOL) Take 1 capsule by mouth one time a week. clotrimazole-betamethasone (LOTRISONE) cream APPLY TO AFFECTED AREA TWICE A DAY polyethylene glycol 3350 (MIRALAX) 17 gram/dose powder Take 17 g by mouth once daily. Dissolve dose in 4 - 8 ounces of liquid and take as directed. multivitamin tablet Take 1 tablet by mouth once daily. ascorbic acid (RANDA-C ORAL) Take 2,000 mg by mouth once daily. Nebulizer 1 Each once daily. NEBULIZER FOR HOME USE. DX: asthma J 45.909 No current facility-administered medications for this visit. ALLERGIES Allergen Reactions Shellfish Derived Anaphylaxis Keflex [Cephalexin] Rash Latex Rash Prevnar 20 (Pf) [Pn* Other: See Comments Allergies. Video Exam (Examination performed via Video enabled technology) General appearance: Alert, oriented, pleasant, in NAD :Yes Ill appearing :No Lethargic appearing :No Eyes:Sclera clear :Yes Conjunctiva without erythema :Yes Ears:Tragus / outer ear tenderness by self palpation :No Oropharynx: not examined Frontal sinus tenderness by self palpation;No Maxillary sinus tenderness by self palpation :No Tender cervical adenopathy by self palpation :No Respiratory distress :No Coughing noted :No Audible wheezing noted :No ASSESSMENT/PLAN: 1. Mild intermittent asthma with acute exacerbation - ICD9: 493.92, ICD10: J45.21 - Factors affecting control of asthma include upper respiratory infection - Exacerbation treatment of prednisone burst - Avoidance of triggers recommended - Continue albuterol nebulizer every 6 hours as needed for SOB and wheezing - PREDNISONE 20 MG TABLET 2. Viral URI - ICD9: 465.9, ICD10: J06.9 Discussed viral etiology and rationale for treatment. - Symptomatic treatment with prn analgesia - Supportive care with fluids and rest - May also use OTC cough and cold meds as needed. - Saline spray PRN - Follow up in person if symptoms persist or sooner if worsening of symptoms - Red flags discussed for need for in person care - All questions answered Jenny Malik APRN.CNP If you let us know who your primary care provider is, we will send them a notification of today s visit through our electronic medical records system. Since not all providers have access to our notifications, we strongly encourage you to share the following record of today s visit with your primary care provider at your next visit. This will help in providing you the best care. If you do not have an established Primary Care physician and would like to continue care with a [facility] Virtual Primary Care physician, please ask your provider to place a Establish Primary Care order. Use KXEN to manage your care, wherever you are, 28/08, on your mobile device or computer. KXEN connects you to [employer] Display System so you can access all your health information in one place and also schedule and request virtual appointments with primary care providers. documented in this encounter [facility] 07-05-2023 Telephone encounter Note Called and spoke to patient that PA is good till December: Authorized from March 25, 2023 to December 20, 2023 Patient advised being charge $500 and insurance states should be $90. Advised we have no idea how much rx is but shows PA not needed. Patient aware that [facility] to may be $90 if sent mail-away Dixie Kraus MA [facility] 07-05-2023 Miscellaneous Notes Called and spoke to patient that PA is good till December: Authorized from March 25, 2023 to December 20, 2023 Patient advised being charge $500 and insurance states should be $90. Advised we have no idea how much rx is but shows PA not needed. Patient aware that [facility] may be $90 if sent mail-away Dixie Kraus MA Don is calling Ariana Bhagat MD today with concern regarding prior authorization. Patient asking for prior authorization for medication tirzepatide, weight loss (ZEPBOUND) 2.5 mg/0.5 mL pen injector Patient has been identified by name and birthdate. Duration of symptoms: N/A Person calling: self Call patient at: on [employer] [phone] (home) [phone] (cell) Was an appointment scheduled: No Closing statement: Results or non-symptom based questions: Thank you for calling [facility], your call will be returned within the next business day. Lisa Lorenzo documented in this encounter [facility] 07-05-2023 Telephone encounter Note Don is calling Ariana Bhagat MD today with concern regarding prior authorization. Patient asking for prior authorization for medication tirzepatide, weight loss (ZEPBOUND) 2.5 mg/0.5 mL pen injector Patient has been identified by name and birthdate. Duration of symptoms: N/A Person calling: self Call patient at: on [employer] [phone] (home) [phone] (cell) Was an appointment scheduled: No Closing statement: Results or non-symptom based questions: Thank you for calling [facility], your call will be returned within the next business day. Lisa Lorenzo [facility] 06-25-2023 History of Present illness Narrative Telemedicine Visit - Distance Health Virtual Visit Note Patient seen on [employer] Video Visit platform. Location of patient: [place] I have communicated my name and active licensure. The patient's identity and physical location were verified at the time of this visit. Either the patient or their legal agency service representative has been informed of the risks and benefits of -- and alternatives to -- treatment through a remote evaluation and consents to proceed with the evaluation remotely. History of Present Illness Don Rodas is a 32 year old year old female who presents for the past 1 day with symptoms that are:constant. Symptoms include: Positive for Cough, SOB, MALAVE, Wheezing, Nasal congestion, Rhinorrhea, and Otalgia, Negative for Fever, Chills/Sweats, Hemoptysis, Face pain/pressure, Headache, Teeth pain , Nausea, Emesis, and Diarrhea Oral intake: eating and drinking Tobacco use: No Second hand smoke exposure: No Recent exposure to strep:No Sick contacts: no Recent travel: no OTC meds/remedies that patient has tried: prednisone. PAST MEDICAL HISTORY Diagnosis Date Allergy 09/11/2013 Asthma 09/27/2012 Excessive daytime sleepiness 08/16/2016 Fibrocystic breast disease in female 09/11/2013 Hyperlipidemia LDL goal <130 07/31/2014 Morbid obesity (HCC) Rosacea 09/27/2012 Vitamin D deficiency 08/04/2014 PAST SURGICAL HISTORY Procedure Laterality Date COLONOSCOPY SCREENING 11/28/2021 focal 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 EGD W/O BRSH SPEC VARICIES INJ 11/28/2021 Normal REMOVE TONSILS/ADENOIDS,12+ Y/O TONSILLECTOMY HX FAMILY HISTORY Problem Relation Age of Onset Asthma Mother Hyperlipidemia Mother Osteoporosis Mother Diabetes Father Psoriasis Father Arthritis Father Diabetes Maternal Grandmother Heart Maternal Grandmother tachycardia Hypertension Maternal Grandmother None Maternal Grandfather Asthma Paternal Grandmother Stroke Paternal Grandmother Colon Cancer Maternal Uncle Social History Tobacco Use Smoking status: Never Smokeless tobacco: Never Vaping Use Vaping Use: Never used Substance Use Topics Alcohol use: No Drug use: No Current Outpatient Medications Medication Sig cyclobenzaprine (FLEXERIL) 10 mg tablet Take 1 tablet by mouth three times a day as needed for muscle spasm. fluticasone-vilanterol (BREO ELLIPTA) 200-25 mcg/dose inhaler Inhale 1 Inhalation as instructed once daily. Inhale one puff once daily. DO NOT CLICK OPEN UNTIL READY FOR DOSE tirzepatide, weight loss (ZEPBOUND) 2.5 mg/0.5 mL pen injector Inject 2.5 mg subcutaneously one time a week. EPINEPHrine (EPIPEN) 0.3 mg/0.3 mL auto-injector 0.3 ml subcutaneous as needed for severe allergic reaction/may substitute. albuterol HFA (PROVENTIL HFA, VENTOLIN HFA) 90 mcg/actuation inhaler Inhale 2 Puffs as instructed every 4 hours as needed for wheezing/shortness of breath. atorvastatin (LIPITOR) 20 mg tablet Take 1 tablet by mouth daily at bedtime. For cholesterol. predniSONE (DELTASONE) 10 mg tablet Take 10 mg by mouth as needed. albuterol (PROVENTIL) 2.5 mg /3 mL (0.083 %) nebulizer solution Use 3 mL via nebulizer every 6 hours as needed for wheezing/shortness of breath. Use over 5-15minutes. ergocalciferol 50,000 unit capsule (VITAMIN D2, DRISDOL) Take 1 capsule by mouth one time a week. clotrimazole-betamethasone (LOTRISONE) cream APPLY TO AFFECTED AREA TWICE A DAY polyethylene glycol 3350 (MIRALAX) 17 gram/dose powder Take 17 g by mouth once daily. Dissolve dose in 4 - 8 ounces of liquid and take as directed. multivitamin tablet Take 1 tablet by mouth once daily. ascorbic acid (RANDA-C ORAL) Take 2,000 mg by mouth once daily. Nebulizer 1 Each once daily. NEBULIZER FOR HOME USE. DX: asthma J 45.226 No current facility-administered medications for this visit. ALLERGIES Allergen Reactions Shellfish Derived Anaphylaxis Keflex [Cephalexin] Rash Latex Rash Prevnar 20 (Pf) [Pn* Other: See Comments Allergies. Video Exam (Examination performed via Video enabled technology) General appearance: Alert, oriented, pleasant, in NAD :Yes Ill appearing :No Lethargic appearing :No Frontal sinus tenderness by self palpation;No Maxillary sinus tenderness by self palpation :No Tender cervical adenopathy by self palpation :No Respiratory distress :No Coughing noted :No Audible wheezing noted :No ASSESSMENT/PLAN: 1. Viral syndrome - ICD9: 079.99, ICD10: B34.9 - Discussed viral etiology and rationale for treatment. - Symptomatic treatment with prn analgesia - Supportive care with fluids and rest - The patient may also use OTC cough and cold meds as needed. - Follow up in 3-5 days if symptoms persist or sooner if worsening of symptoms -Tylenol (generic acetaminophen) 500 mg-2 tabs every 8 hrs. as needed for fever and aches -Mucinex (generic is fine) 1200 mg twice daily to help with cough and to thin out mucus -[email or web address]://[email or web address] [email or web address]/. This link shares information about when antibiotics may help and when they may not. - Red flags discussed for need for in person care - All questions answered Aniya No APRN.CNP If you let us know who your primary care provider is, we will send them a notification of today s visit through our electronic medical records system. Since not all providers have access to our notifications, we strongly encourage you to share the following record of today s visit with your primary care provider at your next visit. This will help in providing you the best care. If you do not have an established Primary Care physician and would like to continue care with a [facility] Virtual Primary Care physician, please ask your provider to place a Establish Primary Care order. Use KXEN to manage your care, wherever you are, 28/08, on your mobile device or computer. [employer]EN connects you to [employer] Display System so you can access all your health information in one place and also schedule and request virtual appointments with primary care providers. documented in this encounter [facility] 05-10-2023 History of Present illness Narrative Radiology Service Progress Note PATIENT NAME: Don Rodas DATE OF SERVICE: May 10, 2023 TIME: 4:02 PM PATIENT IDENTITY VERIFICATION COMPLETED USING TWO (2) IDENTIFIERS: Name and Date of confirmed by patient verbally. FALL SCREENING: Has the patient had 2 falls in the last year or 1 fall with injury or currently using an Ambulatory Assistive Device (Walker, Cane, Wheelchair, Crutches, etc.)? No PATIENT GENDER DATA: Female. status: : No status: NO. PATIENT RELEVANT IMPLANT DATA REVIEWED: Yes PATIENT PRESENTS WITH AN IMPLANTABLE OR ATTACHED TIE TAMPER: No RADIOLOGY DEPARTMENT: General X-ray: Exam(s) Completed: Spine X-Ray(s): Cervical AP / LAT / OBL PERIPHERAL IV DATA: Not applicable SIGNED BY: RT Cristine(R) May 10, 2023 4:02 PM documented in this encounter [facility] 05-10-2023 History of Present illness Narrative This note was created using [employer] Servicer[employer]. Subjective Don Rodas is a 32 year old female. 32 year old female with PMH asthma and hyperlipidemia presents for neck pain Acute onset X 3 days Locates pain my whole neck +tenderness with touching +pain with range of motion. Of note, she was here yesterday and seen for URI sx, which she is still experiencing Her COVID and Influenza testing were negative She was started on Prednisone Denies limited or reduced ROM Denies fever or chills Denies numbness or tingling Denies skin rash or lesions. 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 No tourist information assistant was used. Neck Pain This is a new problem. The current episode started in the past 7 days. The problem occurs constantly. The problem has been unchanged. The pain is associated with an unknown factor. The pain is present in the anterior neck, left side, midline and right side. The quality of the pain is described as aching and cramping. The pain is at a severity of 4/10. The symptoms are aggravated by twisting and position. The pain is Same all the time. Pertinent negatives include no chest pain, fever, headaches, leg pain, numbness, pain with swallowing, paresis, photophobia, syncope, tingling, trouble swallowing, visual change, weakness or weight loss. Treatments tried: steroids. The treatment provided no relief. PAST MEDICAL HISTORY Diagnosis Date Allergy 09/11/2013 Asthma 09/27/2012 Excessive daytime sleepiness 08/16/2016 Fibrocystic breast disease in female 09/11/2013 Hyperlipidemia LDL goal <130 07/31/2014 Morbid obesity (HCC) Rosacea 09/27/2012 Vitamin D deficiency 08/04/2014 PAST SURGICAL HISTORY Procedure Laterality Date COLONOSCOPY SCREENING 11/28/2021 focal 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 EGD W/O BRSH SPEC VARICIES INJ 11/28/2021 Normal REMOVE TONSILS/ADENOIDS,12+ Y/O TONSILLECTOMY HX ALLERGIES Shellfish Derived, Keflex [Cephalexin], Latex, and Prevnar 20 (Pf) [Pneumoc 20-Gunjan Conj-Dip Cr(Pf)] MEDICATIONS predniSONE (DELTASONE) 20 mg tablet Take 2 tablets by mouth once daily for 5 days. fluticasone-vilanterol (BREO ELLIPTA) 200-25 mcg/dose inhaler Inhale 1 Inhalation as instructed once daily. Inhale one puff once daily. DO NOT CLICK OPEN UNTIL READY FOR DOSE tirzepatide, weight loss (ZEPBOUND) 2.5 mg/0.5 mL pen injector Inject 2.5 mg subcutaneously one time a week. EPINEPHrine (EPIPEN) 0.3 mg/0.3 mL auto-injector 0.3 ml subcutaneous as needed for severe allergic reaction/may substitute. albuterol HFA (PROVENTIL HFA, VENTOLIN HFA) 90 mcg/actuation inhaler Inhale 2 Puffs as instructed every 4 hours as needed for wheezing/shortness of breath. atorvastatin (LIPITOR) 20 mg tablet Take 1 tablet by mouth daily at bedtime. For cholesterol. predniSONE (DELTASONE) 10 mg tablet Take 10 mg by mouth as needed. albuterol (PROVENTIL) 2.5 mg /3 mL (0.083 %) nebulizer solution Use 3 mL via nebulizer every 6 hours as needed for wheezing/shortness of breath. Use over 5-15minutes. ergocalciferol 50,000 unit capsule (VITAMIN D2, DRISDOL) Take 1 capsule by mouth one time a week. clotrimazole-betamethasone (LOTRISONE) cream APPLY TO AFFECTED AREA TWICE A DAY polyethylene glycol 3350 (MIRALAX) 17 gram/dose powder Take 17 g by mouth once daily. Dissolve dose in 4 - 8 ounces of liquid and take as directed. multivitamin tablet Take 1 tablet by mouth once daily. ascorbic acid (RANDA-C ORAL) Take 2,000 mg by mouth once daily. Nebulizer 1 Each once daily. NEBULIZER FOR HOME USE. DX: asthma J 45.909 cyclobenzaprine (FLEXERIL) 10 mg tablet Take 1 tablet by mouth three times a day as needed for muscle spasm. FAMILY HISTORY Problem Relation Age of Onset Asthma Mother Hyperlipidemia Mother Osteoporosis Mother Diabetes Father Psoriasis Father Arthritis Father Diabetes Maternal Grandmother Heart Maternal Grandmother tachycardia Hypertension Maternal Grandmother None Maternal Grandfather Asthma Paternal Grandmother Stroke Paternal Grandmother Colon Cancer Maternal Uncle Social History Tobacco Use Smoking status: Never Smokeless tobacco: Never Vaping Use Vaping Use: Never used Substance Use Topics Alcohol use: No Drug use: No Review of Systems Constitutional: Negative for fever and weight loss. HENT: Negative for trouble swallowing. Eyes: Negative for photophobia. Respiratory: Negative for apnea, cough, choking and chest tightness. Cardiovascular: Negative for chest pain and syncope. Gastrointestinal: Negative for abdominal pain, constipation, diarrhea and vomiting. Musculoskeletal: Positive for neck pain. Skin: Negative for color change, pallor, rash and wound. Allergic/Immunologic: Negative for environmental allergies, food allergies and immunocompromised state. Neurological: Negative for dizziness, tingling, facial asymmetry, weakness, numbness and headaches. Hematological: Negative for adenopathy. Does not bruise/bleed easily. Psychiatric/Behavioral: Negative for agitation and behavioral problems. Objective BP 100/62 Pulse 73 Temp 36.6 C (97.8 F) Resp 21 Wt 103 kg (227 lb 1.2 oz) LMP 04/14/2023 (Exact Date) SpO2 99% BMI 41.26 kg/m Physical Exam Vitals and nursing note reviewed. Constitutional: General: She is not in acute distress. Appearance: Normal appearance. She is obese. She is not ill-appearing, toxic-appearing or diaphoretic. HENT: Head: Normocephalic and atraumatic. Right Ear: Ear canal and external ear normal. Left Ear: Ear canal and external ear normal. Nose: Nose normal. No congestion or rhinorrhea. Mouth/Throat: Mouth: Mucous membranes are moist. Pharynx: No oropharyngeal exudate or posterior oropharyngeal erythema. Eyes: General: Right eye: No discharge. Left eye: No discharge. Extraocular Movements: Extraocular movements intact. Conjunctiva/sclera: Conjunctivae normal. Pupils: Pupils are equal, round, and reactive to light. Cardiovascular: Rate and Rhythm: Normal rate and regular rhythm. Pulses: Normal pulses. Heart sounds: Normal heart sounds. No murmur heard. No friction rub. Pulmonary: Effort: Pulmonary effort is normal. No respiratory distress. Breath sounds: Normal breath sounds. No stridor. No wheezing, rhonchi or rales. Chest: Chest wall: No tenderness. Abdominal: General: Abdomen is flat. There is no distension. Palpations: Abdomen is soft. There is no mass. Tenderness: There is no abdominal tenderness. There is no right CVA tenderness, left CVA tenderness, guarding or rebound. Hernia: No hernia is present. Musculoskeletal: General: Tenderness present. No swelling, deformity or signs of injury. Normal range of motion. Cervical back: Normal range of motion and neck supple. Tenderness present. No rigidity. Right lower leg: No edema. Left lower leg: No edema. Comments: Diffuse midline and paraspinal muscle tenderness and tightness. No nuchal ridigity +neuro +active and passive ROM Lymphadenopathy: Cervical: No cervical adenopathy. Skin: General: Skin is warm and dry. Capillary Refill: Capillary refill takes less than 2 seconds. Coloration: Skin is not jaundiced or pale. Findings: No bruising, erythema, lesion or rash. Neurological: General: No focal deficit present. Mental Status: She is alert and oriented to person, place, and time. Cranial Nerves: No cranial nerve deficit. Sensory: No sensory deficit. Motor: No weakness. Coordination: Coordination normal. Gait: Gait normal. Psychiatric: Mood and Affect: Mood normal. Behavior: Behavior normal. Thought Content: Thought content normal. Judgment: Judgment normal. Assessment and Plan ASSESSMENT/PLAN: 1. Neck pain - ICD9: 723.1, ICD10: M54.2 Ongoing X 3 days No trauma or injury No red flags Diffuse pain and TTP - XR CERV OTHER 4V AP/LAT/OBL-negative for acute process Result of viral vs. Musculo She was provided steroids yesterday RX Flexeril Work note Follow up for continued sx Carolee Hernandez APRN.PIPELINE INTEGRITY ENGINEER documented in this encounter [facility] 05-09-2023 History of Present illness Narrative Subjective HPI HPI Don Rodas is a 32 year old female who presents today for CC of cough, congestion, fever, ear pain. This started 1 day ago. Has tried otc medication for relief. Symptoms are worsened by nothing. Hx of asthma. Nonsmoker. Denies possibility of being . 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 Inhale one puff once daily. DO NOT CLICK OPEN UNTIL READY FOR DOSE tirzepatide, weight loss (ZEPBOUND) 2.5 mg/0.5 mL pen injector Inject 2.5 mg subcutaneously one time a week. EPINEPHrine (EPIPEN) 0.3 mg/0.3 mL auto-injector 0.3 ml subcutaneous as needed for severe allergic reaction/may substitute. albuterol HFA (PROVENTIL HFA, VENTOLIN HFA) 90 mcg/actuation inhaler Inhale 2 Puffs as instructed every 4 hours as needed for wheezing/shortness of breath. atorvastatin (LIPITOR) 20 mg tablet Take 1 tablet by mouth daily at bedtime. For cholesterol. predniSONE (DELTASONE) 10 mg tablet Take 10 mg by mouth as needed. albuterol (PROVENTIL) 2.5 mg /3 mL (0.083 %) nebulizer solution Use 3 mL via nebulizer every 6 hours as needed for wheezing/shortness of breath. Use over 5-15minutes. ergocalciferol 50,000 unit capsule (VITAMIN D2, DRISDOL) Take 1 capsule by mouth one time a week. clotrimazole-betamethasone (LOTRISONE) cream APPLY TO AFFECTED AREA TWICE A DAY polyethylene glycol 3350 (MIRALAX) 17 gram/dose powder Take 17 g by mouth once daily. Dissolve dose in 4 - 8 ounces of liquid and take as directed. multivitamin tablet Take 1 tablet by mouth once daily. ascorbic acid (RANDA-C ORAL) Take 2,000 mg by mouth once daily. Nebulizer 1 Each once daily. NEBULIZER FOR HOME USE. DX: asthma J 45.909 predniSONE (DELTASONE) 20 mg tablet Take 2 tablets by mouth once daily for 5 days. FAMILY HISTORY Problem Relation Age of Onset Asthma Mother Hyperlipidemia Mother Osteoporosis Mother Diabetes Father Psoriasis Father Arthritis Father Diabetes Maternal Grandmother Heart Maternal Grandmother tachycardia Hypertension Maternal Grandmother None Maternal Grandfather Asthma Paternal Grandmother Stroke Paternal Grandmother Colon Cancer Maternal Uncle Social History Tobacco Use Smoking status: Never Smokeless tobacco: Never Vaping Use Vaping Use: Never used Substance Use Topics Alcohol use: No Drug use: No Review of Systems Constitutional: Positive for fever. HENT: Positive for congestion, ear pain and sore throat. Negative for ear discharge and nosebleeds. Respiratory: Positive for cough. Negative for shortness of breath and wheezing. Musculoskeletal: Negative for neck pain. Skin: Negative for itching and rash. Objective Blood pressure 110/78, pulse 77, temperature 36.5 C (97.7 F), resp. rate 18, weight 102.1 kg (225 lb 1.4 oz), last menstrual period 04/14/2023, SpO2 99%. Physical Exam Constitutional: General: She is not in acute distress. Appearance: She is not toxic-appearing or diaphoretic. HENT: Head: Normocephalic and atraumatic. Right Ear: Hearing, tympanic membrane, ear canal and external ear normal. Left Ear: Hearing, tympanic membrane, ear canal and external ear normal. Nose: Nose normal. Mouth/Throat: Pharynx: Uvula midline. No pharyngeal swelling, oropharyngeal exudate, posterior oropharyngeal erythema or uvula swelling. Eyes: General: Lids are normal. No scleral icterus. Right eye: No discharge. Left eye: No discharge. Conjunctiva/sclera: Conjunctivae normal. Pupils: Pupils are equal, round, and reactive to light. Neck: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 not share dishes, drinking glasses, cups, eating utensils, towels, or bedding with other people in your home. Wash these items thoroughly after using them with soap and water or put in the mechatronics technologist. Clean all high-touch surfaces everyday Clean and disinfect high-touch surfaces in your sick room and bathroom; wear disposable gloves. Let someone else clean and disinfect surfaces in common areas, but you should clean your bedroom and bathroom, if possible. If a caregiver or other person needs to clean and disinfect a sick person s bedroom or bathroom, they should do so on an as-needed basis. The caregiver/other person should wear a mask and disposable gloves prior to cleaning. They should wait as long as possible after the person who is sick has used the bathroom before coming in to clean and use the bathroom. High-touch surfaces include phones, remote controls, counters, tabletops, doorknobs, bathroom fixtures, toilets, keyboards, tablets, and bedside tables. Clean and disinfect areas that may have blood, stool, or body fluids on them. Use household warehouse supervisor and disinfectants. Clean the area or item with soap and water or another detergent if it is dirty. Then, use a household disinfectant. Be sure to follow the instructions on the label to ensure safe and effective use of the product. Many products recommend keeping the surface wet for several minutes to ensure germs are killed. Many also recommend precautions such as wearing gloves and making sure you have good ventilation during use of the product. Most EPA-registered household disinfectants should be effective. Updated 02.09.2021 Source: https://www.cdc.gov/coronavirus/2 019-ncov/kg-jrb-lub-sick/steps-wh en-sick.html How to Protect Yourself & Others from COVID-19 Wash your hands often Wash your hands often with soap and water for at least 20 seconds especially after you have been in a public place, or after blowing your nose, coughing, or sneezing. If soap and water are not readily available, use a hand car ferry master that contains at least 60% alcohol. Cover all surfaces of your hands and rub them together until they feel dry. Avoid touching your eyes, nose, and mouth with unwashed hands. Avoid close contact Inside your home: Avoid close contact with people who are sick. If possible, maintain 6 feet between the person who is sick and other household members. Outside your home: Put 6 feet of distance between yourself and people who don't live in your household. Cover your mouth and nose with a mask when around others Masks help prevent you from getting or spreading the virus. You could spread COVID-19 to others even if you do not feel sick. Everyone should wear a mask in public settings and when around people who don't live in your household, especially when other social distancing measures are difficult to maintain. Masks should not be placed on young children under age 2, anyone who has trouble breathing, or is unconscious, incapacitated or otherwise unable to remove the mask without assistance. Cover coughs and sneezes Always cover your mouth and nose with a tissue when you cough or sneeze or use the inside of your elbow and do not spit. Throw used tissues in the trash. Immediately wash your hands with soap and water for at least 20 seconds. Clean and disinfect Clean AND disinfect frequently touched surfaces daily. This includes tables, doorknobs, light switches, countertops, handles, desks, phones, keyboards, toilets, faucets, and sinks. Monitor Your Health Daily Be alert for symptoms. Watch for fever, cough, shortness of breath, or other symptoms of COVID-19. Especially important if you are running essential errands, going into the office or workplace, and in settings where it may be difficult to keep a physical distance of 6 feet. Take your temperature if symptoms develop. Don't take your temperature within 30 minutes of exercising or after taking medications that could lower your temperature, like acetaminophen. Travel Skip events that put you in contact with large groups of people (sporting events, concerts, theme rea, etc). Avoid unnecessary domestic and international travel, including travel through large international airports. If traveling, wipe down your airplane seat (and tray) with a disinfecting wipe. Office Visits If you have a fever, cough or shortness of breath, or are otherwise concerned you have COVID-19, we ask that you do not come to any [facility] facility without calling your primary care physician or speaking to a provider using a virtual visit using [facility] [employer]. You will be evaluated to determine if you require being seen in person or if you meet CDC guidelines for testing for COVID-19 based on symptoms, travel and exposures. If you meet criteria for testing, your [facility] provider or primary care physician will advise how to proceed with testing Immunosuppression There is no need to stop your immunosuppressive medications preemptively. If you become sick, please let your doctor know, and discuss with them prior to stopping any medications. At this point, we have no knowledge that patients on immunosuppressive medications are at higher risk of COVID-19 infection. People with weakened immune systems are at higher risk of getting severely sick from SARS-CoV-2, the virus that causes COVID-19. They may also remain infectious for a longer period of time than others with COVID-19, but we cannot confirm this until we learn more about this new virus. Steps You Can Take to Protect Your Health Continue your regular treatment plan. Don't stop any medications or treatments without talking to your doctor. Discuss any concerns about your treatment with your doctor. Keep your regularly scheduled medical appointments. Talk to your doctor about steps they are taking to reduce risk of exposure to COVID-19 in the office. Use telehealth services whenever possible if recommended by your doctor. Ensure that you are getting necessary tests prescribed by your doctor. Seek urgent medical care if you are feeling unwell. Talk to your doctor, insurer, and pharmacist about getting an emergency supply of prescription medications. Make sure you have at least 30 days of prescription medications, nxzb-sqb-sqzcpsn medicines, and supplies on hand in case you need or want to stay home for several weeks. Talk to your doctor or pharmacist about ways to receive your medications by mail. Take steps to care for your emotional health. Fear and anxiety about COVID-19 can be overwhelming and cause strong emotions. It is natural to feel concerned or stressed about COVID-19. - Learn more about stress and coping with anxiety here. Call your healthcare provider if stress gets in the way of your daily activities for several days in a row. If you are feeling overwhelmed with emotions like sadness, depression, or anxiety, or feel like you want to harm yourself or others: Call [phone] if you feel like you want to harm yourself or others Visit the Disaster Distress Helpline call , [place] [address] Visit the [employer] Domestic Violence Hotline or call and TTY Visit the National Suicide Prevention Lifeline or call and TTY or text Most importantly, don't panic. By following basic prevention measures such as hand hygiene and cover your cough, you are helping to keep yourself and others healthy. Additional information can be found on the CDC and [facility] web sites: https://www.cdc.gov/coronavirus/2 019-nCoV/index.html https://[facility].org/coron avirus Resources for Managing Anxiety During COVID Crisis https://www.[employer]anxi[employer].com https://www.cdc.gov/coronavirus/2 019-ncov/prepare/managing-stress- anxiety.html https://coronavirus.[place].gov/wps/ portal/gov/covid-19/home/resource s/vzhnqyqyu-wlm-faeopn-coping-wit h-mwy-aldls-19-pandemic www.[employer]/us/blog/francis acostauq-ywrup-ovbyacsefaux//how- nlctda-lnkgsnoehnl-svkwitc https://www.[employer]/u s/blog/fgr-jvqnp-fohrazw//1 3-ebgs-xgyriunov-calm-positivity- now https://www.[employer]/u s/blog/experimentations//7- nemxvjqxfxz-qcrmjmdfcaf-xenurirkq g-adversity How to Manage Common Symptoms Associated with COVID Fever- Fever is a temperature over 100.4 F and can occur when the body is fighting an infection. To help treat a fever: Drink plenty of fluids and stay well hydrated. Eat small amounts of easy to digest food. Rest. Your body needs rest to recover, but getting up and moving around the house frequently is a good idea. You should try to continue doing your normal daily activities (bathing, toileting, grooming, cooking), though you will probably feel tired, and need to rest often. Avoid any heavy activity or exercise, as this will increase your body temperature. Dress in light clothing and stay covered in a light sheet. Keep the room temperature cool. Take a slightly warm (not cold or cool) bath, or apply damp washcloths to the forehead and wrists. Use the following definitions to help put the level of fever into proper perspective: 100-102 F (37.8 - 38.9 C): Low-grade fevers and may help body fight infection. 102-104 F (38.9 - 40 C): Moderate-grade fevers; cause discomfort. Over 104 F (over 40 C): High fevers; cause discomfort, weakness, headache, lethargy. Over 106 F (over 41 C): The fever itself can be harmful. FEVER MEDICINES: For fever relief, take acetaminophen. Treat fevers above 101 F (38.3 C). The goal of fever therapy is to bring the fever down to a comfortable level. Remember that fever medicine usually lowers fever 2-3 F (1-1.5 C). Cough- Cough is a common symptom associated with COVID and can be bothersome. To help treat a cough: Stay well hydrated. Try warm water or tea with lemon and/or honey to help soothe the cough. Use a humidifier to add moisture to the air. Try a product with menthol, like a cough drop or a rub for your chest such as Vicks, which can help reduce cough. Try cough drops or hard candy Avoid smoking and other strong odors or perfumes. Try breathing exercises to keep your lungs open and clear. Take a big deep breath through your nose and hold for 5 seconds before slowly releasing. Repeat frequently, while you are awake. OTC COUGH DROPS: Cough drops can help a lot, especially for mild coughs. They reduce coughing by soothing your irritated throat and removing that tickle sensation in the back of the throat. Cough drops also have the advantage of portability - you can carry them with you. HOME REMEDY - HARD CANDY: Hard candy works just as well as medicine-flavored OTC cough drops. People who have diabetes should use sugar-free candy. HOME REMEDY - HONEY: This old home remedy has been shown to help decrease coughing at night. The adult dosage is 2 teaspoons (10 ml) at bedtime. Honey should not be given to infants under one year of age. HUMIDIFIER: If the air is dry, use a humidifier in the bedroom. (Reason: dry air makes coughs worse) AVOID TOBACCO SMOKE: Smoking or being exposed to smoke makes coughs much worse. Congestion- Runny nose or nasal congestion can occur with COVID. Treatment can help relieve symptoms: Try OTC nasal saline spray, or nasal saline rinse to relieve mucus congestion. Nasal strips can help keep nasal passages open, to increase airflow. Elevating your head with an extra pillow in bed can help reduce congestion. Using a humidifier can increase moisture in the air, and make breathing easier. Use Nasal Washes: -Introduction: Saline (salt water) nasal irrigation (nasal wash) is an effective and simple home remedy for treating stuffy nose and sinus congestion. The nose can be irrigated by pouring, spraying, or squirting salt water into the nose and then letting it run back out. -How it Helps: The salt water rinses out excess mucus, washes out any irritants (dust, allergens) that might be present, and moistens the nasal cavity. -Methods: There are several ways to perform nasal irrigation. You can use a saline nasal spray bottle (available ijzt-pra-dbvxbzc), a rubber ear syringe, a medical syringe without the needle, or a Neti Pot. Cqeq-Ro-Hshm Instructions: Step 1: Lean over a sink. Step 2: Gently squirt or spray warm salt water into one of your nostrils. Step 3: Some of the water may run into the back of your throat. Spit this out. If you swallow the salt water it will not hurt you. Step 4: Blow your nose to clean out the water and mucus. Step 5: Repeat steps 1-4 for the other nostril. You can do this a couple times a day if it seems to help you. How to Make Saline (Salt Water) Nasal Wash: You can make your own saline nasal wash. Put 1 cup (8 oz; 240 ml) of water in a clean container. Add 3/4 teaspoon of non-iodized salt (such as rosalinda or pickling salt) to the water. Add 1/4 teaspoon baking soda to the water. Stir well. Use bottled or boiled tap water that has cooled. Sore Throat- Another common symptom with COVID, can be managed at home by: Stay well hydrated. Gargle with salt water - mix teaspoon salt with 1 cup of warm water and gargle. This helps to loosen mucus in the back of the throat and may reduce discomfort. Try ice chips, popsicles or lozenges to soothe the throat. Nausea/Vomiting/Diarrhea- These are common symptoms, and staying hydrated is most important. If you are nauseous or vomiting, start with small sips of water every 10-15 minutes and increase as tolerated. You can try sucking an ice cube too. If tolerating, you can try pedialyte or Gatorade, or flat sprite or lisandra-kumar. Start slowly and increase as you are able to. Instead of meals, try smaller, more frequent snacks. Try eating bland foods like crackers, toast, rice, and applesauce. Avoid spicy, greasy or fried foods and dairy containing foods. Even if you aren't feeling hungry due to lack of smell or taste, it is important to try to take in some food when you are able. After drinking and eating, rest in an upright position for up to two hours as needed to help decrease nauseous feelings. Try closing your eyes, avoid moving and watching TV. Avoid strong odors that can make you feel more nauseated. When to seek emergency medical attention Look for emergency warning signs for COVID-19. If having any of these symptoms, seek emergency medical care immediately: Trouble breathing Persistent pain or pressure in the chest New confusion Inability to wake or stay awake Bluish lips or face *This list is not all possible symptoms. Please call your medical provider for any other symptoms that are severe or concerning to you. Fact Sheet for Patients And Caregivers Emergency Use Authorization (EUA) Of LAGEVRIO (molnupiravir) capsules For Coronavirus Disease 2019 (COVID-19) What is the most important information I should know about LAGEVRIO? LAGEVRIO may cause serious side effects, including: LAGEVRIO may cause harm to your unborn baby. It is not known if LAGEVRIO will harm your baby if you take LAGEVRIO during . LAGEVRIO is not recommended for use in . LAGEVRIO has not been studied in . LAGEVRIO was studied in animals only. When LAGEVRIO was given to animals, LAGEVRIO caused harm to their unborn babies. You and your healthcare provider may decide that you should take LAGEVRIO during if there are no other COVID-19 treatment options approved or authorized by the FDA that are accessible or clinically appropriate for you. If you and your healthcare provider decide that you should take LAGEVRIO during , you and your healthcare provider should discuss the known and potential benefits and the potential risks of taking LAGEVRIO during . For individuals who are able to become : You should use a reliable method of control (contraception) consistently and correctly during treatment with LAGEVRIO and for 4 days after the last dose of LAGEVRIO. Talk to your healthcare provider about reliable control methods. Before starting treatment with LAGEVRIO your healthcare provider may do a test to see if you are before starting treatment with LAGEVRIO. Tell your healthcare provider right away if you become or think you may be during treatment with LAGEVRIO. Registry: There is a registry for individuals who take LAGEVRIO during . The purpose of this program is to collect information about the health of you and your baby. If you are or become during treatment with LAGEVRIO, you are encouraged to report your use of LAGEVRIO during to this registry at https://covid-pr.Adap.tv.omelett.es or . For individuals who are sexually active with partners who are able to become : It is not known if LAGEVRIO can affect sperm. While the risk is regarded as low, animal studies to fully assess the potential for LAGEVRIO to affect the babies of males treated with LAGEVRIO have not been completed. A reliable method of control (contraception) should be used consistently and correctly during treatment with LAGEVRIO and for at least 3 months after the last dose. The risk to sperm beyond 3 months is not known. Studies to understand the risk to sperm beyond 3 months are ongoing. Talk to your healthcare provider about reliable control methods. Talk to your healthcare provider if you have questions or concerns about how LAGEVRIO may affect sperm. You are being given this fact sheet because your healthcare provider believes it is necessary to provide you with LAGEVRIO for the treatment of adults with a current diagnosis of mild-tomoderate coronavirus disease 2019 (COVID-19) who are at high risk for progression to severe COVID-19, including hospitalization or , and for whom other COVID-19 treatment options approved or authorized by the FDA are not accessible or clinically appropriate. The [place]. Food and Drug Administration (FDA) has issued an Emergency Use Authorization (EUA) to make LAGEVRIO available during the COVID-19 pandemic (for more details about an EUA please see What is an Emergency Use Authorization? at the end of this document). LAGEVRIO is not an FDA-approved medicine in the [place]. Read this Fact Sheet for information about LAGEVRIO. Talk to your healthcare provider about your options if you have any questions. It is your choice to take LAGEVRIO. What is COVID-19? COVID-19 is caused by a virus called a coronavirus. You can get COVID-19 through close contact with another person who has the virus. COVID-19 illnesses have ranged from very lwui-bg-nwioiy, including illness resulting in . While information so far suggests that most COVID-19 illness is mild, serious illness can happen and may cause some of your other medical conditions to become worse. Older people and people of all ages with severe, long lasting (chronic) medical conditions like heart disease, lung disease and diabetes, for example seem to be at higher risk of being hospitalized for COVID-19. What is LAGEVRIO? LAGEVRIO is an investigational medicine used to treat adults with a current diagnosis of mild to moderate COVID-19: who are at high risk for progression to severe COVID-19 including hospitalization or , and for whom other COVID-19 treatment options approved or authorized by the FDA are not accessible or clinically appropriate. The FDA has authorized the emergency use of LAGEVRIO for the treatment of mild-tomoderate COVID-19 in adults under an EUA. For more information on EUA, see the What is an Emergency Use Authorization (EUA)? section at the end of this Fact Sheet. LAGEVRIO is not authorized: for use in people less than 18 years of age. for prevention of COVID-19. for people needing hospitalization for COVID-19. for use for longer than 5 consecutive days. What should I tell my healthcare provider before I take LAGEVRIO? Tell your healthcare provider if you: have any allergies are or plan to breastfeed have any serious illnesses Take any medicines including prescription, jlkl-yry-piriwol medicines, vitamins, and herbal products. How do I take LAGEVRIO? Take LAGEVRIO exactly as your healthcare provider tells you to take it. Take 4 capsules of LAGEVRIO every 12 hours (for example, at 8 am and at 8 pm) Take LAGEVRIO for 5 days. It is important that you complete the full 5 days of treatment with LAGEVRIO. Do not stop taking LAGEVRIO before you complete the full 5 days of treatment, even if you feel better. Take LAGEVRIO with or without food. You should stay in isolation for as long as your healthcare provider tells you to. Talk to your healthcare provider if you are not sure about how to properly isolate while you have COVID-19. Swallow LAGEVRIO capsules whole. Do not open, break, or crush the capsules. If you cannot swallow capsules whole, tell your healthcare provider. If your healthcare provider prescribes LAGEVRIO and tells you to take or give a dose through a nasogastric (NG) or orogastric (OG) tube, follow the instructions below: How to take or give a dose of LAGEVRIO through a nasogastric (NG) or orogastric (OG) feeding tube. You must have an NG or OG that is size 12 Egyptian (FR) or larger. If you miss a dose of LAGEVRIO: If it has been less than 10 hours since the missed dose, take it as soon as you remember. If it has been more than 10 hours since the missed dose, skip the missed dose and take your dose at the next scheduled time. Do not double the dose of LAGEVRIO to make up for a missed dose. How to take or give a dose of LAGEVRIO through a nasogastric (NG) or orogastric (OG) feeding tube: Wash your hands well with soap and water. Gather the supplies you will need to take or give the prescribed dose of LAGEVRIO. 4 LAGEVRIO capsules 1 liquid measuring cup with mL markings to measure 40 mL of room temperature water 1 clean container with a lid 1 catheter tip syringe. Your healthcare provider should tell you what size catheter tip syringe you will need to take or give a dose of LAGEVRIO. Place the needed supplies on a clean work surface. Follow your healthcare provider s instructions on how to flush the NG or OG feeding tube. Flush the NG or OG feeding tube with 5 mL of water before taking or giving a dose of LAGEVRIO. Carefully open 4 LAGEVRIO capsules, one at a time, and empty the contents into a clean container. Use the liquid measuring cup to measure 40 mL of room temperature water and add to the container containing the capsule contents. Place the lid on the container. Shake to mix the capsule contents and water well for 3 minutes. The capsule contents may not dissolve completely. Remove the lid from the container and draw up all the LAGEVRIO and water mixture into a catheter tip syringe. Give all of the mixture right away through the NG or OG feeding tube. Do not keep the mixture for future use. If any capsule contents are left in the container: Add 10 mL of water to the container, and mix to loosen any capsule contents that are left in the container. Use the catheter tip syringe to draw up all of the mixture in the container. Give the mixture through the NG or OG feeding tube. Repeat this process as needed until you no longer see any capsule contents left in the container or catheter tip syringe. Use the same catheter tip syringe to flush the NG or OG feeding tube 2 times with 5 mL of water (10mL total). Rinse the container, lid and catheter tip syringe well with clean water after use. Place on a clean paper towel until next use. What are the important possible side effects of LAGEVRIO? See, What is the most important information I should know about LAGEVRIO? Allergic Reactions. Allergic reactions can happen in people taking LAGEVRIO, even after only 1 dose. Stop taking LAGEVRIO and call your healthcare provider right away if you get any of the following symptoms of an allergic reaction: hives rapid heartbeat trouble swallowing or breathing swelling of the mouth, lips, or face throat tightness hoarseness skin rash The most common side effects of LAGEVRIO are: diarrhea nausea dizziness These are not all the possible side effects of LAGEVRIO. Not many people have taken LAGEVRIO. Serious and unexpected side effects may happen. This medicine is still being studied, so it is possible that all of the risks are not known at this time. What other treatment choices are there? Veklury (remdesivir) is FDA-approved as an intravenous (IV) infusion for the treatment of mildto-moderate COVID-19 in certain adults and children. Talk with your doctor to see if Veklury is appropriate for you. Like LAGEVRIO, FDA may also allow for the emergency use of other medicines to treat people with COVID-19. Go to https://www.fda.gov/emergency-pre wlvbzutqj-iry-pprymzyz/mcm-legalr iwvawibmg-otk-cuepvi-framework/em vyrvtew-vpi-kydoahpzuvtns for more information. It is your choice to be treated or not to be treated with LAGEVRIO. Should you decide not to take it, it will not change your standard medical care. What if I am ? is not recommended during treatment with LAGEVRIO and for 4 days after the last dose of LAGEVRIO. If you are or plan to breastfeed, talk to your healthcare provider about your options and specific situation before taking LAGEVRIO. How do I report side effects with LAGEVRIO? Contact your healthcare provider if you have any side effects that bother you or do not go away. Report side effects to FDA MedWatch at www.fda.gov/medwatch or call 2-528-CNN-9534 (1403.119.3424). How should I store LAGEVRIO? Store LAGEVRIO capsules at room temperature between 68 F to 77 F (20 C to 25 C). Keep LAGEVRIO and all medicines out of the reach of children. How can I learn more about COVID-19? Ask your healthcare provider. Visit www.cdc.gov/COVID19 Contact your local or state public health department. Call [employer] at (toll free in the [place] Visit www.SocialGlimpz What Is an Emergency Use Authorization (EUA)? The [place] FDA has made LAGEVRIO available under an emergency access mechanism called an Emergency Use Authorization (EUA) The EUA is supported by a Care Director Rn of Health and Human Service ([facility]) declaration that circumstances exist to justify emergency use of drugs and biological products during the COVID-19 pandemic. LAGEVRIO for the treatment of adults with a current diagnosis of klzk-yi-mosyytqp COVID-19 who are at high risk for progression to severe COVID-19, including hospitalization or , and for whom alternative COVID-19 treatment options approved or authorized by FDA are not accessible or clinically appropriate, has not undergone the same type of review as an FDAapproved product. In issuing an EUA under the COVID-19 public health emergency, the FDA has determined, among other things, that based on the total amount of scientific evidence available including data from adequate and well-controlled clinical trials, if available, it is reasonable to believe that the product may be effective for diagnosing, treating, or preventing COVID-19, or a serious or life-threatening disease or condition caused by COVID-19; that the known and potential benefits of the product, when used to diagnose, treat, or prevent such disease or condition, outweigh the known and potential risks of such product; and that there are no adequate, approved, and available alternatives. All of these criteria must be met to allow for the product to be used in the treatment of patients during the COVID-19 pandemic. The EUA for LAGEVRIO is in effect for the duration of the COVID-19 declaration justifying emergency use of LAGEVRIO, unless terminated or revoked (after which LAGEVRIO may no longer be used under the EUA). Martha. for: [employer] [address] For patent information: www.PAX Streamline.omelett.es/research/patent Copyright [employer] [place], [place], [place] and its affiliates. All rights reserved. [id number] Revised: March 2022 documented in this encounter [facility] 12-27-2022 History of Present illness Narrative Images from the original note were not included. December 27, 2022 Don Rodas 1990 VIRTUAL VISIT PROGRESS NOTE This is a virtual visit. It required patient-provider interaction for the medical decision making as documented below. Informed verbal consent was obtained from this patient to communicate and provide care using virtual and other telecommunications tools. This patient has been explained the risks related to unauthorized disclosure or interception of personal health information and steps they can take to help protect their information. We have discussed that care provided through video or audio communication cannot replace the need for physical examination or an in person visit for some disorders or urgent problems and patient understands the need to seek urgent care in an Emergency Department as necessary. I have communicated my name and active licensure. The patient's identity and physical location were verified at the time of this visit. Either the patient or their legal agency service representative has been informed of the risks and benefits of -- and alternatives to -- treatment through a remote evaluation and consents to proceed with the evaluation remotely. Platform patient seen on: [employer] Video Visit platform Location of patient: [place] Don Rodas is a 32 year old female seen for Patient presents with: Flu Like Symptoms Flu Like Symptoms This is a new problem. Episode onset: 5 days, tested positive today. The problem occurs constantly. The problem has been gradually worsening. Associated symptoms include congestion, headaches and a sore throat (mild). Pertinent negatives include no abdominal pain, anorexia, arthralgias, change in bowel habit, chest pain, chills, coughing, diaphoresis, fatigue, fever, joint swelling, myalgias, nausea, neck pain, numbness, rash, swollen glands, urinary symptoms, vertigo, visual change, vomiting or weakness. 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 EGD W/O BRSH SPEC VARICIES INJ 11/28/2021 Normal REMOVE TONSILS/ADENOIDS,12+ Y/O TONSILLECTOMY HX FAMILY HISTORY Problem Relation Age of Onset Asthma Mother Hyperlipidemia Mother Osteoporosis Mother Diabetes Father Psoriasis Father Arthritis Father Diabetes Maternal Grandmother Heart Maternal Grandmother tachycardia Hypertension Maternal Grandmother None Maternal Grandfather Asthma Paternal Grandmother Stroke Paternal Grandmother Colon Cancer Maternal Uncle Social History Tobacco Use Smoking status: Never Smokeless tobacco: Never Vaping Use Vaping Use: Never used Substance Use Topics Alcohol use: No Drug use: No Current Outpatient Medications Medication Sig atorvastatin (LIPITOR) 20 mg tablet Take 1 tablet by mouth daily at bedtime. For cholesterol. semaglutide (OZEMPIC) 0.25 mg or 0.5 mg(2 mg/1.5 mL) pen Inject 0.25 mg subcutaneously one time a week. predniSONE (DELTASONE) 10 mg tablet Take 10 mg by mouth as needed. albuterol (PROVENTIL) 2.5 mg /3 mL (0.083 %) nebulizer solution Use 3 mL via nebulizer every 6 hours as needed for wheezing/shortness of breath. Use over 5-15minutes. albuterol HFA (VENTOLIN HFA) 90 mcg/actuation inhaler Inhale 2 Puffs as instructed every 4 hours as needed for wheezing/shortness of breath. ergocalciferol 50,000 unit capsule (VITAMIN D2, DRISDOL) Take 1 capsule by mouth one time a week. clotrimazole-betamethasone (LOTRISONE) cream APPLY TO AFFECTED AREA TWICE A DAY polyethylene glycol 3350 (MIRALAX) 17 gram/dose powder Take 17 g by mouth once daily. Dissolve dose in 4 - 8 ounces of liquid and take as directed. EPINEPHrine (EPIPEN) 0.3 mg/0.3 mL auto-injector 0.3 ml subcutaneous as needed for severe allergic reaction/may substitute. fluticasone-vilanterol (BREO ELLIPTA) 200-25 mcg/dose inhaler Inhale 1 Inhalation as instructed once daily. Inhale one puff once daily. DO NOT CLICK OPEN UNTIL READY FOR DOSE multivitamin tablet Take 1 tablet by mouth once daily. ascorbic acid (RANDA-C ORAL) Take 2,000 mg by mouth once daily. Nebulizer 1 Each once daily. NEBULIZER FOR HOME USE. DX: asthma J 45.909 molnupiravir 200 mg capsule Take 4 capsules by mouth two times a day for 5 days. No current facility-administered medications for this visit. ALLERGIES Allergen Reactions Shellfish Derived Anaphylaxis Keflex [Cephalexin] Rash Latex Rash Prevnar 20 (Pf) [Pn* Other: See Comments Allergies. REVIEW OF SYSTEMS: Review of Systems Constitutional: Negative for activity change, appetite change, chills, diaphoresis, fatigue, fever and unexpected weight change. HENT: Positive for congestion, sinus pressure and sore throat (mild). Negative for postnasal drip and rhinorrhea. Eyes: Negative for visual disturbance. Respiratory: Negative for apnea, cough, choking, chest tightness, shortness of breath, wheezing and stridor. Cardiovascular: Negative for chest pain, palpitations and leg swelling. Gastrointestinal: Negative for abdominal pain, anorexia, change in bowel habit, diarrhea, nausea and vomiting. Endocrine: Negative for cold intolerance, heat intolerance, polydipsia, polyphagia and polyuria. Musculoskeletal: Negative for arthralgias, joint swelling, myalgias and neck pain. Skin: Negative for color change, rash and wound. Neurological: Positive for headaches. Negative for vertigo, weakness and numbness. Psychiatric/Behavioral: Negative. PHYSICAL EXAMINATION: VIDEO EXAM: (performed via video enabled technology) GENERAL: alert and appropriate, in no distress, well-hydrated, well nourished, and happy, smiling, interactive SKIN: no rash noted HEAD: normocephalic, no abnormality or lesion noted EYES: no injection and visual acuity is grossly normal EARS: hearing grossly normal NOSE: external nose normal without rhinorrhea Frontal sinus tenderness by self palpation;No Maxillary sinus tenderness by self palpation :No Ethmoid sinus tenderness by self palpation: No OROPHARYNX: moist mucus membranes NECK: full ROM, no cervical LNs noted Tender cervical adenopathy by self palpation :No RESPIRATORY: breathing non-labored Respiratory distress :No Coughing noted :No Audible wheezing noted :No CHEST: equal chest rise with normal respiratory effort NEUROLOGIC: no obvious deficit ASSESSMENT: (U07.1) COVID (primary encounter diagnosis) PLAN: Encounter Diagnosis ICD-10-CM 1. COVID U07.1 molnupiravir 200 mg capsule DISCONTINUED: molnupiravir 200 mg capsule Return if symptoms worsen or fail to improve, for recheck with PCP. Patient Instructions COVID-19 Patient Instructions WHAT TO DO IF YOU ARE SICK WITH CORONAVIRUS DISEASE 2019 (COVID-19) If you are sick with COVID-19 or think you might have COVID-19, follow the steps below to care for yourself and to help protect other people in your home and community. Stay home except to get medical care Stay home. Most people with COVID-19 have mild illness and can recover at home without medical care. Do not leave your home, except to get medical care. Do not visit public areas. Take care of yourself. Get rest and stay hydrated. Take jwmv-qnt-mkjilmi medicines, such as acetaminophen, to help you feel better. Stay in touch with your doctor. Call before you get medical care. Be sure to get care if you have trouble breathing, or have any other emergency warning signs, or if you think it is an emergency. Avoid public transportation, ride-sharing, or taxis. Separate yourself from other people As much as possible, stay in a specific room and away from other people and pets in your home. If possible, you should use a separate bathroom. If you need to be around other people or animals in or outside of the home, wear a mask. Tell your close contacts that they may have been exposed to COVID-19. An infected person can spread COVID-19 starting 48 hours (or 2 days) before the person has any symptoms or tests positive. By letting your close contacts know they may have been exposed to COVID-19, you are helping to protect everyone. Additional guidance is available for those living in close quarters and shared housing. See COVID-19 and Animals if you have questions about pets. If you are diagnosed with COVID-19, someone from the health department may call you. Answer the call to slow the spread. When you can be around others after you had or likely had COVID-19 If You Test Positive for COVID-19 (Isolation) Everyone, regardless of vaccination status: Stay home for 5 days. If you have no symptoms or your symptoms are resolving after 5 days, you can leave your house. Continue to wear a mask around others for 5 additional days. If you have a fever, continue to stay home until your fever resolves, even if it is longer than 5 days. If You Were Exposed to Someone with COVID-19 (Quarantine) If you: 1. Have been boosted OR 2. Completed the primary series of Pfizer or Moderna vaccine within the last 6 months OR 3. Completed the primary series of J&J vaccine within the last 2 months THEN: 1. Wear a mask around others for 10 days. 2. Test on day 5, if possible. If you develop symptoms get a test and stay home. If You Were Exposed to Someone with COVID-19 (Quarantine) If you: 1. Completed the primary series of Pfizer or Moderna vaccine over 6 months ago and are not boosted OR 2. Completed the primary series of J&J over 2 months ago and are not boosted OR 3. Are unvaccinated THEN: 1. Stay home for 5 days. After that continue to wear a mask around others for 5 additional days. 2. If you can't quarantine you must wear a mask for 10 days. 3. Test on day 5 if possible. If you develop symptoms get a test and stay home. I had COVID-19 or I tested positive for COVID-19 and I have a weakened immune system If you have a weakened immune system (immunocompromised) due to a health condition or medication, you might need to stay home and isolate longer than 10 days. Talk to your healthcare provider for more information. Your doctor may work with an infectious disease expert at your local health department to determine when you can be around others. Monitor your symptoms Symptoms of COVID-19 include fever, cough, or other symptoms. Follow care instructions from your healthcare provider and local health department. Your local health authorities may give instructions on checking your symptoms and reporting information. When to seek emergency medical attention Look for emergency warning signs* for COVID-19. If someone is showing any of these signs, seek emergency medical care immediately: Trouble breathing Persistent pain or pressure in the chest New confusion Inability to wake or stay awake Bluish lips or face *This list is not all possible symptoms. Please call your medical provider for any other symptoms that are severe or concerning to you. Call 911 or call ahead to your local emergency facility: Notify the rig operator that you are seeking care for someone who has or may have COVID-19. Call ahead before visiting your doctor Call ahead. Many medical visits for routine care are being postponed or done by phone or telemedicine. If you have a medical appointment that cannot be postponed, call your doctor s office, and tell them you have or may have COVID-19. This will help the office protect themselves and other patients. If you are sick, wear a mask over your nose and mouth You should wear a mask over your nose and mouth if you must be around other people or animals, including pets (even at home). You don t need to wear the mask if you are alone. If you can t put on a mask (because of trouble breathing, for example), cover your coughs and sneezes in some other way. Try to stay at least 6 feet away from other people. This will help protect the people around you. Masks should not be placed on young children under age 2 years, anyone who has trouble breathing, or anyone who is not able to remove the mask without help. Note: During the COVID-19 pandemic, medical grade facemasks are reserved for healthcare workers and some first responders. Cover your coughs and sneezes Cover your mouth and nose with a tissue when you cough or sneeze. Throw away used tissues in a lined trash can. Immediately wash your hands with soap and water for at least 20 seconds. If soap and water are not available, clean your hands with an alcohol-based hand car ferry master that contains at least 60% alcohol. Clean your hands often Wash your hands often with soap and water for at least 20 seconds. This is especially important after blowing your nose, coughing, or sneezing; going to the bathroom; and before eating or preparing food. Use hand car ferry master if soap and water are not available. Use an alcohol-based hand car ferry master with at least 60% alcohol, covering all surfaces of your hands and rubbing them together until they feel dry. Soap and water are the best option, especially if hands are visibly dirty. Avoid touching your eyes, nose, and mouth with unwashed hands. Avoid sharing personal household items Do not share dishes, drinking glasses, cups, eating utensils, towels, or bedding with other people in your home. Wash these items thoroughly after using them with soap and water or put in the mechatronics technologist. Clean all high-touch surfaces everyday Clean and disinfect high-touch surfaces in your sick room and bathroom; wear disposable gloves. Let someone else clean and disinfect surfaces in common areas, but you should clean your bedroom and bathroom, if possible. If a caregiver or other person needs to clean and disinfect a sick person s bedroom or bathroom, they should do so on an as-needed basis. The caregiver/other person should wear a mask and disposable gloves prior to cleaning. They should wait as long as possible after the person who is sick has used the bathroom before coming in to clean and use the bathroom. High-touch surfaces include phones, remote controls, counters, tabletops, doorknobs, bathroom fixtures, toilets, keyboards, tablets, and bedside tables. Clean and disinfect areas that may have blood, stool, or body fluids on them. Use household warehouse supervisor and disinfectants. Clean the area or item with soap and water or another detergent if it is dirty. Then, use a household disinfectant. Be sure to follow the instructions on the label to ensure safe and effective use of the product. Many products recommend keeping the surface wet for several minutes to ensure germs are killed. Many also recommend precautions such as wearing gloves and making sure you have good ventilation during use of the product. Most EPA-registered household disinfectants should be effective. Updated 02.09.2021 Source: https://www.cdc.gov/coronavirus/2 019-ncov/hi-kmz-bkx-sick/steps-wh en-sick.html How to Protect Yourself & Others from COVID-19 Wash your hands often Wash your hands often with soap and water for at least 20 seconds especially after you have been in a public place, or after blowing your nose, coughing, or sneezing. If soap and water are not readily available, use a hand car ferry master that contains at least 60% alcohol. Cover all surfaces of your hands and rub them together until they feel dry. Avoid touching your eyes, nose, and mouth with unwashed hands. Avoid close contact Inside your home: Avoid close contact with people who are sick. If possible, maintain 6 feet between the person who is sick and other household members. Outside your home: Put 6 feet of distance between yourself and people who don't live in your household. Cover your mouth and nose with a mask when around others Masks help prevent you from getting or spreading the virus. You could spread COVID-19 to others even if you do not feel sick. Everyone should wear a mask in public settings and when around people who don't live in your household, especially when other social distancing measures are difficult to maintain. Masks should not be placed on young children under age 2, anyone who has trouble breathing, or is unconscious, incapacitated or otherwise unable to remove the mask without assistance. Cover coughs and sneezes Always cover your mouth and nose with a tissue when you cough or sneeze or use the inside of your elbow and do not spit. Throw used tissues in the trash. Immediately wash your hands with soap and water for at least 20 seconds. Clean and disinfect Clean AND disinfect frequently touched surfaces daily. This includes tables, doorknobs, light switches, countertops, handles, desks, phones, keyboards, toilets, faucets, and sinks. Monitor Your Health Daily Be alert for symptoms. Watch for fever, cough, shortness of breath, or other symptoms of COVID-19. Especially important if you are running essential errands, going into the office or workplace, and in settings where it may be difficult to keep a physical distance of 6 feet. Take your temperature if symptoms develop. Don't take your temperature within 30 minutes of exercising or after taking medications that could lower your temperature, like acetaminophen. Travel Skip events that put you in contact with large groups of people (sporting events, concerts, theme rea, etc). Avoid unnecessary domestic and international travel, including travel through large international airports. If traveling, wipe down your airplane seat (and tray) with a disinfecting wipe. Office Visits If you have a fever, cough or shortness of breath, or are otherwise concerned you have COVID-19, we ask that you do not come to any [facility] facility without calling your primary care physician or speaking to a provider using a virtual visit using [facility] [employer]. You will be evaluated to determine if you require being seen in person or if you meet CDC guidelines for testing for COVID-19 based on symptoms, travel and exposures. If you meet criteria for testing, your [facility] provider or primary care physician will advise how to proceed with testing Immunosuppression There is no need to stop your immunosuppressive medications preemptively. If you become sick, please let your doctor know, and discuss with them prior to stopping any medications. At this point, we have no knowledge that patients on immunosuppressive medications are at higher risk of COVID-19 infection. People with weakened immune systems are at higher risk of getting severely sick from SARS-CoV-2, the virus that causes COVID-19. They may also remain infectious for a longer period of time than others with COVID-19, but we cannot confirm this until we learn more about this new virus. Steps You Can Take to Protect Your Health Continue your regular treatment plan. Don't stop any medications or treatments without talking to your doctor. Discuss any concerns about your treatment with your doctor. Keep your regularly scheduled medical appointments. Talk to your doctor about steps they are taking to reduce risk of exposure to COVID-19 in the office. Use telehealth services whenever possible if recommended by your doctor. Ensure that you are getting necessary tests prescribed by your doctor. Seek urgent medical care if you are feeling unwell. Talk to your doctor, insurer, and pharmacist about getting an emergency supply of prescription medications. Make sure you have at least 30 days of prescription medications, zmpt-nky-tntdoqa medicines, and supplies on hand in case you need or want to stay home for several weeks. Talk to your doctor or pharmacist about ways to receive your medications by mail. Take steps to care for your emotional health. Fear and anxiety about COVID-19 can be overwhelming and cause strong emotions. It is natural to feel concerned or stressed about COVID-19. - Learn more about stress and coping with anxiety here. Call your healthcare provider if stress gets in the way of your daily activities for several days in a row. If you are feeling overwhelmed with emotions like sadness, depression, or anxiety, or feel like you want to harm yourself or others: Call 134 if you feel like you want to harm yourself or others Visit the Disaster Distress Helpline call , [place] [address] Visit the National Domestic Violence Hotline or call and TTY Visit the National Suicide Prevention Lifeline or call and TTY or text Most importantly, don't panic. By following basic prevention measures such as hand hygiene and cover your cough, you are helping to keep yourself and others healthy. Additional information can be found on the CDC and [facility] web sites: https://www.cdc.gov/coronavirus/2 019-nCoV/index.html https://[facility].org/coron avirus Resources for Managing Anxiety During COVID Crisis https://www.[employer] https://www.cdc.gov/coronavirus/2 019-ncov/prepare/managing-stress- anxiety.html https://coronavirus.[place].gov/wps/ portal/gov/covid-19/home/resource s/fkcwniokg-xdi-slberu-coping-wit f-lbj-qoxdo-19-pandemic www.[employer]/us/blog/t pt-mplyp-fyipdlfmwjnt//how- zhhctu-oxmhqntgapz-pfedmyg https://www[employer]/MyP[employer]ostic/blog/pmw-idyzc-lovaarl//1 6-eqhu-qcwxkenlh-calm-positivity- now https://www.[employer]/u s/blog/experimentations//7- xivfpnjqwzy-ehpqxjvbgwq-cczvbaxkd g-adversity How to Manage Common Symptoms Associated with COVID Fever- Fever is a temperature over 100.4 F and can occur when the body is fighting an infection. To help treat a fever: Drink plenty of fluids and stay well hydrated. Eat small amounts of easy to digest food. Rest. Your body needs rest to recover, but getting up and moving around the house frequently is a good idea. You should try to continue doing your normal daily activities (bathing, toileting, grooming, cooking), though you will probably feel tired, and need to rest often. Avoid any heavy activity or exercise, as this will increase your body temperature. Dress in light clothing and stay covered in a light sheet. Keep the room temperature cool. Take a slightly warm (not cold or cool) bath, or apply damp washcloths to the forehead and wrists. Use the following definitions to help put the level of fever into proper perspective: 100-102 F (37.8 - 38.9 C): Low-grade fevers and may help body fight infection. 102-104 F (38.9 - 40 C): Moderate-grade fevers; cause discomfort. Over 104 F (over 40 C): High fevers; cause discomfort, weakness, headache, lethargy. Over 106 F (over 41 C): The fever itself can be harmful. FEVER MEDICINES: For fever relief, take acetaminophen. Treat fevers above 101 F (38.3 C). The goal of fever therapy is to bring the fever down to a comfortable level. Remember that fever medicine usually lowers fever 2-3 F (1-1.5 C). Cough- Cough is a common symptom associated with COVID and can be bothersome. To help treat a cough: Stay well hydrated. Try warm water or tea with lemon and/or honey to help soothe the cough. Use a humidifier to add moisture to the air. Try a product with menthol, like a cough drop or a rub for your chest such as Vicks, which can help reduce cough. Try cough drops or hard candy Avoid smoking and other strong odors or perfumes. Try breathing exercises to keep your lungs open and clear. Take a big deep breath through your nose and hold for 5 seconds before slowly releasing. Repeat frequently, while you are awake. OTC COUGH DROPS: Cough drops can help a lot, especially for mild coughs. They reduce coughing by soothing your irritated throat and removing that tickle sensation in the back of the throat. Cough drops also have the advantage of portability - you can carry them with you. HOME REMEDY - HARD CANDY: Hard candy works just as well as medicine-flavored OTC cough drops. People who have diabetes should use sugar-free candy. HOME REMEDY - HONEY: This old home remedy has been shown to help decrease coughing at night. The adult dosage is 2 teaspoons (10 ml) at bedtime. Honey should not be given to infants under one year of age. HUMIDIFIER: If the air is dry, use a humidifier in the bedroom. (Reason: dry air makes coughs worse) AVOID TOBACCO SMOKE: Smoking or being exposed to smoke makes coughs much worse. Congestion- Runny nose or nasal congestion can occur with COVID. Treatment can help relieve symptoms: Try OTC nasal saline spray, or nasal saline rinse to relieve mucus congestion. Nasal strips can help keep nasal passages open, to increase airflow. Elevating your head with an extra pillow in bed can help reduce congestion. Using a humidifier can increase moisture in the air, and make breathing easier. Use Nasal Washes: -Introduction: Saline (salt water) nasal irrigation (nasal wash) is an effective and simple home remedy for treating stuffy nose and sinus congestion. The nose can be irrigated by pouring, spraying, or squirting salt water into the nose and then letting it run back out. -How it Helps: The salt water rinses out excess mucus, washes out any irritants (dust, allergens) that might be present, and moistens the nasal cavity. -Methods: There are several ways to perform nasal irrigation. You can use a saline nasal spray bottle (available iwbd-cvb-gmnvjbg), a rubber ear syringe, a medical syringe without the needle, or a Neti Pot. Euia-Lm-Ukce Instructions: Step 1: Lean over a sink. Step 2: Gently squirt or spray warm salt water into one of your nostrils. Step 3: Some of the water may run into the back of your throat. Spit this out. If you swallow the salt water it will not hurt you. Step 4: Blow your nose to clean out the water and mucus. Step 5: Repeat steps 1-4 for the other nostril. You can do this a couple times a day if it seems to help you. How to Make Saline (Salt Water) Nasal Wash: You can make your own saline nasal wash. Put 1 cup (8 oz; 240 ml) of water in a clean container. Add 3/4 teaspoon of non-iodized salt (such as rosalinda or pickling salt) to the water. Add 1/4 teaspoon baking soda to the water. Stir well. Use bottled or boiled tap water that has cooled. Sore Throat- Another common symptom with COVID, can be managed at home by: Stay well hydrated. Gargle with salt water - mix teaspoon salt with 1 cup of warm water and gargle. This helps to loosen mucus in the back of the throat and may reduce discomfort. Try ice chips, popsicles or lozenges to soothe the throat. Nausea/Vomiting/Diarrhea- These are common symptoms, and staying hydrated is most important. If you are nauseous or vomiting, start with small sips of water every 10-15 minutes and increase as tolerated. You can try sucking an ice cube too. If tolerating, you can try pedialyte or Gatorade, or flat sprite or lisandra-kumar. Start slowly and increase as you are able to. Instead of meals, try smaller, more frequent snacks. Try eating bland foods like crackers, toast, rice, and applesauce. Avoid spicy, greasy or fried foods and dairy containing foods. Even if you aren't feeling hungry due to lack of smell or taste, it is important to try to take in some food when you are able. After drinking and eating, rest in an upright position for up to two hours as needed to help decrease nauseous feelings. Try closing your eyes, avoid moving and watching TV. Avoid strong odors that can make you feel more nauseated. When to seek emergency medical attention Look for emergency warning signs for COVID-19. If having any of these symptoms, seek emergency medical care immediately: Trouble breathing Persistent pain or pressure in the chest New confusion Inability to wake or stay awake Bluish lips or face *This list is not all possible symptoms. Please call your medical provider for any other symptoms that are severe or concerning to you. Fact Sheet for Patients And Caregivers Emergency Use Authorization (EUA) Of LAGEVRIO (molnupiravir) capsules For Coronavirus Disease 2019 (COVID-19) What is the most important information I should know about LAGEVRIO? LAGEVRIO may cause serious side effects, including: LAGEVRIO may cause harm to your unborn baby. It is not known if LAGEVRIO will harm your baby if you take LAGEVRIO during . LAGEVRIO is not recommended for use in . LAGEVRIO has not been studied in . LAGEVRIO was studied in animals only. When LAGEVRIO was given to animals, LAGEVRIO caused harm to their unborn babies. You and your healthcare provider may decide that you should take LAGEVRIO during if there are no other COVID-19 treatment options approved or authorized by the FDA that are accessible or clinically appropriate for you. If you and your healthcare provider decide that you should take LAGEVRIO during , you and your healthcare provider should discuss the known and potential benefits and the potential risks of taking LAGEVRIO during . For individuals who are able to become : You should use a reliable method of control (contraception) consistently and correctly during treatment with LAGEVRIO and for 4 days after the last dose of LAGEVRIO. Talk to your healthcare provider about reliable control methods. Before starting treatment with LAGEVRIO your healthcare provider may do a test to see if you are before starting treatment with LAGEVRIO. Tell your healthcare provider right away if you become or think you may be during treatment with LAGEVRIO. Registry: There is a registry for individuals who take LAGEVRIO during . The purpose of this program is to collect information about the health of you and your baby. If you are or become during treatment with LAGEVRIO, you are encouraged to report your use of LAGEVRIO during to this registry at https://covid-pr.Adap.tv.omelett.es or . For individuals who are sexually active with partners who are able to become : It is not known if LAGEVRIO can affect sperm. While the risk is regarded as low, animal studies to fully assess the potential for LAGEVRIO to affect the babies of males treated with LAGEVRIO have not been completed. A reliable method of control (contraception) should be used consistently and correctly during treatment with LAGEVRIO and for at least 3 months after the last dose. The risk to sperm beyond 3 months is not known. Studies to understand the risk to sperm beyond 3 months are ongoing. Talk to your healthcare provider about reliable control methods. Talk to your healthcare provider if you have questions or concerns about how LAGEVRIO may affect sperm. You are being given this fact sheet because your healthcare provider believes it is necessary to provide you with LAGEVRIO for the treatment of adults with a current diagnosis of mild-tomoderate coronavirus disease 2019 (COVID-19) who are at high risk for progression to severe COVID-19, including hospitalization or , and for whom other COVID-19 treatment options approved or authorized by the FDA are not accessible or clinically appropriate. The [place]. Food and Drug Administration (FDA) has issued an Emergency Use Authorization (EUA) to make LAGEVRIO available during the COVID-19 pandemic (for more details about an EUA please see What is an Emergency Use Authorization? at the end of this document). LAGEVRIO is not an FDA-approved medicine in the [place]. Read this Fact Sheet for information about LAGEVRIO. Talk to your healthcare provider about your options if you have any questions. It is your choice to take LAGEVRIO. What is COVID-19? COVID-19 is caused by a virus called a coronavirus. You can get COVID-19 through close contact with another person who has the virus. COVID-19 illnesses have ranged from very jles-jp-dahqtp, including illness resulting in . While information so far suggests that most COVID-19 illness is mild, serious illness can happen and may cause some of your other medical conditions to become worse. Older people and people of all ages with severe, long lasting (chronic) medical conditions like heart disease, lung disease and diabetes, for example seem to be at higher risk of being hospitalized for COVID-19. What is LAGEVRIO? LAGEVRIO is an investigational medicine used to treat adults with a current diagnosis of mild to moderate COVID-19: who are at high risk for progression to severe COVID-19 including hospitalization or , and for whom other COVID-19 treatment options approved or authorized by the FDA are not accessible or clinically appropriate. The FDA has authorized the emergency use of LAGEVRIO for the treatment of mild-tomoderate COVID-19 in adults under an EUA. For more information on EUA, see the What is an Emergency Use Authorization (EUA)? section at the end of this Fact Sheet. LAGEVRIO is not authorized: for use in people less than 18 years of age. for prevention of COVID-19. for people needing hospitalization for COVID-19. for use for longer than 5 consecutive days. What should I tell my healthcare provider before I take LAGEVRIO? Tell your healthcare provider if you: have any allergies are or plan to breastfeed have any serious illnesses Take any medicines including prescription, lucu-hkt-llpwopz medicines, vitamins, and herbal products. How do I take LAGEVRIO? Take LAGEVRIO exactly as your healthcare provider tells you to take it. Take 4 capsules of LAGEVRIO every 12 hours (for example, at 8 am and at 8 pm) Take LAGEVRIO for 5 days. It is important that you complete the full 5 days of treatment with LAGEVRIO. Do not stop taking LAGEVRIO before you complete the full 5 days of treatment, even if you feel better. Take LAGEVRIO with or without food. You should stay in isolation for as long as your healthcare provider tells you to. Talk to your healthcare provider if you are not sure about how to properly isolate while you have COVID-19. Swallow LAGEVRIO capsules whole. Do not open, break, or crush the capsules. If you cannot swallow capsules whole, tell your healthcare provider. If your healthcare provider prescribes LAGEVRIO and tells you to take or give a dose through a nasogastric (NG) or orogastric (OG) tube, follow the instructions below: How to take or give a dose of LAGEVRIO through a nasogastric (NG) or orogastric (OG) feeding tube. You must have an NG or OG that is size 12 Egyptian (FR) or larger. If you miss a dose of LAGEVRIO: If it has been less than 10 hours since the missed dose, take it as soon as you remember. If it has been more than 10 hours since the missed dose, skip the missed dose and take your dose at the next scheduled time. Do not double the dose of LAGEVRIO to make up for a missed dose. How to take or give a dose of LAGEVRIO through a nasogastric (NG) or orogastric (OG) feeding tube: Wash your hands well with soap and water. Gather the supplies you will need to take or give the prescribed dose of LAGEVRIO. 4 LAGEVRIO capsules 1 liquid measuring cup with mL markings to measure 40 mL of room temperature water 1 clean container with a lid 1 catheter tip syringe. Your healthcare provider should tell you what size catheter tip syringe you will need to take or give a dose of LAGEVRIO. Place the needed supplies on a clean work surface. Follow your healthcare provider s instructions on how to flush the NG or OG feeding tube. Flush the NG or OG feeding tube with 5 mL of water before taking or giving a dose of LAGEVRIO. Carefully open 4 LAGEVRIO capsules, one at a time, and empty the contents into a clean container. Use the liquid measuring cup to measure 40 mL of room temperature water and add to the container containing the capsule contents. Place the lid on the container. Shake to mix the capsule contents and water well for 3 minutes. The capsule contents may not dissolve completely. Remove the lid from the container and draw up all the LAGEVRIO and water mixture into a catheter tip syringe. Give all of the mixture right away through the NG or OG feeding tube. Do not keep the mixture for future use. If any capsule contents are left in the container: Add 10 mL of water to the container, and mix to loosen any capsule contents that are left in the container. Use the catheter tip syringe to draw up all of the mixture in the container. Give the mixture through the NG or OG feeding tube. Repeat this process as needed until you no longer see any capsule contents left in the container or catheter tip syringe. Use the same catheter tip syringe to flush the NG or OG feeding tube 2 times with 5 mL of water (10mL total). Rinse the container, lid and catheter tip syringe well with clean water after use. Place on a clean paper towel until next use. What are the important possible side effects of LAGEVRIO? See, What is the most important information I should know about LAGEVRIO? Allergic Reactions. Allergic reactions can happen in people taking LAGEVRIO, even after only 1 dose. Stop taking LAGEVRIO and call your healthcare provider right away if you get any of the following symptoms of an allergic reaction: hives rapid heartbeat trouble swallowing or breathing swelling of the mouth, lips, or face throat tightness hoarseness skin rash The most common side effects of LAGEVRIO are: diarrhea nausea dizziness These are not all the possible side effects of LAGEVRIO. Not many people have taken LAGEVRIO. Serious and unexpected side effects may happen. This medicine is still being studied, so it is possible that all of the risks are not known at this time. What other treatment choices are there? Veklury (remdesivir) is FDA-approved as an intravenous (IV) infusion for the treatment of mildto-moderate COVID-19 in certain adults and children. Talk with your doctor to see if Veklury is appropriate for you. Like LAGEVRIO, FDA may also allow for the emergency use of other medicines to treat people with COVID-19. Go to https://www.fda.gov/emergency-pre cyosdsove-jxn-rixsmxqs/mcm-legalr wahrhzjzs-ycu-tkpvqn-framework/em nbsznou-roc-whlyhcuhpomrw for more information. It is your choice to be treated or not to be treated with LAGEVRIO. Should you decide not to take it, it will not change your standard medical care. What if I am ? is not recommended during treatment with LAGEVRIO and for 4 days after the last dose of LAGEVRIO. If you are or plan to breastfeed, talk to your healthcare provider about your options and specific situation before taking LAGEVRIO. How do I report side effects with LAGEVRIO? Contact your healthcare provider if you have any side effects that bother you or do not go away. Report side effects to FDA MedWatch at www.fda.gov/medwatch or call 6-073-XLK-4900 (1668.137.8245). How should I store LAGEVRIO? Store LAGEVRIO capsules at room temperature between 68 F to 77 F (20 C to 25 C). Keep LAGEVRIO and all medicines out of the reach of children. How can I learn more about COVID-19? Ask your healthcare provider. Visit www.cdc.gov/COVID19 Contact your local or state public health department. Call [employer] at (toll free in the [place] Visit www.SocialGlimpz What Is an Emergency Use Authorization (EUA)? The [place] FDA has made LAGEVRIO available under an emergency access mechanism called an Emergency Use Authorization (EUA) The EUA is supported by a Care Director Rn of Health and Human Service (HHS) declaration that circumstances exist to justify emergency use of drugs and biological products during the COVID-19 pandemic. LAGEVRIO for the treatment of adults with a current diagnosis of vibk-re-zdrlqfyb COVID-19 who are at high risk for progression to severe COVID-19, including hospitalization or , and for whom alternative COVID-19 treatment options approved or authorized by FDA are not accessible or clinically appropriate, has not undergone the same type of review as an FDAapproved product. In issuing an EUA under the COVID-19 public health emergency, the FDA has determined, among other things, that based on the total amount of scientific evidence available including data from adequate and well-controlled clinical trials, if available, it is reasonable to believe that the product may be effective for diagnosing, treating, or preventing COVID-19, or a serious or life-threatening disease or condition caused by COVID-19; that the known and potential benefits of the product, when used to diagnose, treat, or prevent such disease or condition, outweigh the known and potential risks of such product; and that there are no adequate, approved, and available alternatives. All of these criteria must be met to allow for the product to be used in the treatment of patients during the COVID-19 pandemic. The EUA for LAGEVRIO is in effect for the duration of the COVID-19 declaration justifying emergency use of LAGEVRIO, unless terminated or revoked (after which LAGEVRIO may no longer be used under the EUA). Martha. for: [employer] [address] For patent information: www.[employer]/research/patent Copyright [employer] [place], [place], [facility] and its affiliates. All rights reserved. [id number] Revised: March 2022 Medical Decision Making: Problems: Moderate: Acute illness with systemic symptoms Data: Unique test result(s) reviewed: 2 Risk: Moderate: Moderate risk from testing/treatment Medical Decision Making Level: 4 - Moderate -I have reviewed and updated with the patient: allergies, VS, current medications, Past Medical History,Past Surgical History,Past Family Medical History, Past Social History. - Patient education provided today. - Discussed with patient medications that are indicated and how to use the medications and what the potential side effects are. - Follow up with PCP in 2-3 days if symptoms progress - Warning signs of worsening condition explained to patient, Red flags discussed - Patient in stable condition after questions answered and patient verbalizes understanding - Report to ED with any worsening symptoms or life-threatening concerns Amita Borrego APRN.PIPELINE INTEGRITY ENGINEER If you let us know who your primary care provider is, we will send them a notification of today s visit through our electronic medical records system. Since not all providers have access to our notifications, we strongly encourage you to share the following record of today s visit with your primary care provider at your next visit. This will help in providing you the best care. If you do not have an established Primary Care physician and would like to continue care with a [facility] Virtual Primary Care physician, please ask your provider to place a Establish Primary Care order. Use KXEN to manage your care, wherever you are, 28/08, on your mobile device or computer. K[employer]EN connects you to [employer] Display System so you can access all your health information in one place and also schedule and request virtual appointments with primary care providers. Molnupiravir Eligibility and Patient Discussion [facility] Formulary Restriction Criteria: Adult outpatients 18 years and older with ALL of the following: [x] Patient has symptoms for 5 days or less [x] Not requiring hospitalization at any time for management of COVID-19 [x] Not requiring supplemental oxygen or a change in baseline supplemental oxygen [x] Not utilized for pre-exposure or post-exposure prophylaxis for prevention of COVID-19 [x] Patient is not or lactating [x] Meeting at least one of the criteria for high risk of progression to severe COVID-19: [x] Age over 65 years [] Cancer [] Chronic kidney disease [] Chronic liver disease [x] Chronic lung diseases, including cystic fibrosis [] Dementia or other neurological conditions [] Diabetes (type 1 or type 2) [] Disabilities, including Down syndrome and neurodevelopmental disorders [] Heart conditions [] HIV infection [] Immunocompromised state [] Mental health conditions [] Medical related technological dependence (tracheostomy, gastrostomy, or positive pressure ventilation (not related to COVID) [x] Overweight and obesity (BMI greater or equal to 25 for adults) [x] Physical inactivity [] Sickle cell disease or thalassemia [] Smoking, current or former [] Solid organ or blood stem cell transplant [] Stroke or cerebrovascular disease [] Substance use disorders [] Tuberculosis [] People from racial and ethnic minority groups Criteria above are met: Yes Date of Symptom Onset: 12/23/2022 Patient received COVID vaccine: Yes / status reviewed: Females: [x] Patient is not currently and there is no possibility the patient could be (select one of the following): [x] test does not need to be confirmed in patients who have undergone permanent sterilization, are currently using an intrauterine system or contraceptive implant, or in whom is not possible. [] Patients not meeting conditions above: assess whether the patient is based on the first day of the last menstrual period in individuals who have regular menstrual cycles, is using reliable method of contraception correctly and consistently or have had a negative test [] A test is recommended if the individual has irregular menstrual cycles, is unsure of the first day of the last menstrual period or is not using effective contraception correctly and consistently [x] Patient is not currently . is not recommended during treatment and for four days after final dose of molnupiravir. [x] Females have been advised to use a reliable method of contraception correctly and consistently for the duration of treatment and for four days after the last dose of molnupiravir Males: [] Sexually active male with partner(s) of childbearing potential has been advised to use a reliable method of contraception correctly and consistently for intercourse for the duration of treatment and for three months after the last dose of molnupiravir I have discussed the use of the investigational therapeutic, molnupiravir, for the treatment of mild to moderate COVID-19 and its use under Emergency Use Authorization with the patient. The patient was informed that molnupiravir is not an FDA approved drug and that it is authorized for use under this Emergency Use Authorization. The patient was also informed of the significant known benefits and potential risks of molnupiravir, and the extent to which such potential risks and benefits are unknown. The patient was informed that there is mandatory reporting of all medication errors and serious adverse events potentially related to molnupiravir treatment within 7 calendar days from the onset of the event and that events up to 28 days after completion of therapy need to be reported. The discussion included alternatives to receiving molnupiravir, including clinical trials, and potential the risks and benefits of those alternatives. The patient was provided electronically with the Fact Sheet for Patients, Parents and Caregivers. The patient was also instructed that in addition to the treatment with molnupiravir, he/she should continue to self-isolate and use infection control measures (e.g., wear mask, isolate, social distance, avoid sharing personal items, clean and disinfect high touch surfaces, and frequent handwashing) according to CDC guidelines. The patient stated understanding and gave verbal consent to proceeding with molnupiravir treatment. Amita Borrego APRN.CNP December 27, 2022 6:07 PM documented in this encounter [facility] 12-24-2022 History of Present illness Narrative Subjective HPI Nontoxic-appearing female presents urgent care chief complaint sore throat ear pain. Duration of symptoms 2 days. Associated symptoms sore throat ear discomfort. Patient states most bothersome symptom today is sore throat. No known sick contacts. No OTC medication use. Denies any difficulty swallowing his secretions decreased range of motion of neck. No loss of hearing ear trauma or otorrhea. Denies any fever body aches chills productive cough chest pain shortness of breath pleuritic pain hemoptysis nausea vomiting abdominal pain change in bowel or bladder habits. Past medical history prescription medication use and allergies reviewed. .Patient presents with: Sore Throat: With right side ear pain x 2 days PAST MEDICAL HISTORY Diagnosis Date Allergy 09/11/2013 Asthma 09/27/2012 Excessive daytime sleepiness 08/16/2016 Fibrocystic breast disease in female 09/11/2013 Hyperlipidemia LDL goal <130 07/31/2014 Morbid obesity (HCC) Rosacea 09/27/2012 Vitamin D deficiency 08/04/2014 PAST SURGICAL HISTORY Procedure Laterality Date COLONOSCOPY SCREENING 11/28/2021 focal 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 EGD W/O BRSH SPEC VARICIES INJ 11/28/2021 Normal REMOVE TONSILS/ADENOIDS,12+ Y/O TONSILLECTOMY HX ALLERGIES Shellfish Derived, Keflex [Cephalexin], Latex, and Prevnar 20 (Pf) [Pneumoc 20-Gunjan Conj-Dip Cr(Pf)] MEDICATIONS phenazopyridine (PYRIDIUM) 200 mg tablet Take 1 tablet by mouth three times a day as needed. atorvastatin (LIPITOR) 20 mg tablet Take 1 tablet by mouth daily at bedtime. For cholesterol. semaglutide (OZEMPIC) 0.25 mg or 0.5 mg(2 mg/1.5 mL) pen Inject 0.25 mg subcutaneously one time a week. predniSONE (DELTASONE) 10 mg tablet Take 10 mg by mouth as needed. albuterol (PROVENTIL) 2.5 mg /3 mL (0.083 %) nebulizer solution Use 3 mL via nebulizer every 6 hours as needed for wheezing/shortness of breath. Use over 5-15minutes. albuterol HFA (VENTOLIN HFA) 90 mcg/actuation inhaler Inhale 2 Puffs as instructed every 4 hours as needed for wheezing/shortness of breath. ergocalciferol 50,000 unit capsule (VITAMIN D2, DRISDOL) Take 1 capsule by mouth one time a week. clotrimazole-betamethasone (LOTRISONE) cream APPLY TO AFFECTED AREA TWICE A DAY polyethylene glycol 3350 (MIRALAX) 17 gram/dose powder Take 17 g by mouth once daily. Dissolve dose in 4 - 8 ounces of liquid and take as directed. EPINEPHrine (EPIPEN) 0.3 mg/0.3 mL auto-injector 0.3 ml subcutaneous as needed for severe allergic reaction/may substitute. fluticasone-vilanterol (BREO ELLIPTA) 200-25 mcg/dose inhaler Inhale 1 Inhalation as instructed once daily. Inhale one puff once daily. DO NOT CLICK OPEN UNTIL READY FOR DOSE multivitamin tablet Take 1 tablet by mouth once daily. ascorbic acid (RANDA-C ORAL) Take 2,000 mg by mouth once daily. Nebulizer 1 Each once daily. NEBULIZER FOR HOME USE. DX: asthma J 45.569 FAMILY HISTORY Problem Relation Age of Onset Asthma Mother Hyperlipidemia Mother Osteoporosis Mother Diabetes Father Psoriasis Father Arthritis Father Diabetes Maternal Grandmother Heart Maternal Grandmother tachycardia Hypertension Maternal Grandmother None Maternal Grandfather Asthma Paternal Grandmother Stroke Paternal Grandmother Colon Cancer Maternal Uncle Social History Tobacco Use Smoking status: Never Smokeless tobacco: Never Vaping Use Vaping Use: Never used Substance Use Topics Alcohol use: No Drug use: No BP 100/78 Pulse 67 Temp 36.9 C (98.5 F) Resp 16 Wt 97.1 kg (214 lb) LMP 12/07/2022 (Within Days) SpO2 98% BMI 39.14 kg/m Review of Systems Constitutional: Negative for chills, fever and malaise/fatigue. HENT: Positive for ear pain and sore throat. Negative for congestion, ear discharge and sinus pain. Eyes: Negative for blurred vision, pain, discharge and redness. Respiratory: Negative for cough, hemoptysis, sputum production, shortness of breath, wheezing and stridor. Cardiovascular: Negative for chest pain. Gastrointestinal: Negative for abdominal pain, diarrhea, nausea and vomiting. Musculoskeletal: Negative for myalgias. Skin: Negative for itching and rash. Neurological: Negative for dizziness and headaches. Objective Physical Exam Constitutional: General: She is not in acute distress. Appearance: She is not diaphoretic. HENT: Head: Normocephalic. Jaw: No trismus, tenderness, swelling or pain on movement. Right Ear: Tympanic membrane, ear canal and external ear normal. Left Ear: Tympanic membrane, ear canal and external ear normal. Ears: Comments: Clear fluid noted behind bilateral TMs right greater than left. Nose: Congestion present. Mouth/Throat: Mouth: Mucous membranes are moist. Pharynx: Oropharynx is clear. Uvula midline. Posterior oropharyngeal erythema present. No pharyngeal swelling, oropharyngeal exudate or uvula swelling. Eyes: Conjunctiva/sclera: Conjunctivae normal. Pupils: Pupils are equal, round, and reactive to light. Cardiovascular: Rate and Rhythm: Normal rate and regular rhythm. Heart sounds: Normal heart sounds. Pulmonary: Effort: Pulmonary effort is normal. No tachypnea, accessory muscle usage or respiratory distress. Breath sounds: Normal breath sounds. No stridor. No wheezing, rhonchi or rales. Abdominal: General: There is no distension. Palpations: Abdomen is soft. Tenderness: There is no abdominal tenderness. There is no guarding or rebound. Musculoskeletal: Cervical back: Normal range of motion and neck supple. No edema, erythema, rigidity or tenderness. No pain with movement. Normal range of motion. Lymphadenopathy: Cervical: No cervical adenopathy. Skin: General: Skin is warm and dry. Neurological: Mental Status: She is alert and oriented to person, place, and time. ASSESSMENT/PLAN: 1. Sore throat - ICD9: 462, ICD10: J02.9 - STREP A MOLECULAR (POC) Strep test negative. Diagnosed with viral illness. No evidence of bacterial infection noted on today's exam. Patient was educated on supportive therapies. Patient will follow up with primary care provider as needed. Patient was instructed to immediately proceed to emergency room for any new, worsening, or symptoms lasting longer than anticipated. The patient's clinical presentation is otherwise unremarkable at this time. Based on exam and clinical finding, the patient is stable for discharge. Plan of care was discussed with patient. Patient verbalizes understanding and agrees to plan of care. This note was generated using PackLink software. It may contain errors in wording, punctuation, or spelling. Ladarius Flores APRN.MARIO documented in this encounter [facility] 12-24-2022 History of Present illness Narrative I have communicated my name and active licensure. The patient's identity and physical location were verified at the time of this visit. Either the patient or their legal agency service representative has been informed of the risks and benefits of -- and alternatives to -- treatment through a remote evaluation and consents to proceed with the evaluation remotely. Telemedicine Visit - Distance Health Virtual Visit Note Patient seen on [employer] Video Visit platform. Location of patient: [place] Ariana Bhagat MD History of Present Illness Don Rodas is a 32 year old year old female who presents with c/o right ear pain; reports she has constant pain and pressure to ear that radiates down her jaw. States ear is tender to touch. Discussed limitations of Express Care Online and need for patient to be seen in person; appointment cancelled. Otsi Bray APRN.PIPELINE INTEGRITY ENGINEER documented in this encounter [facility] 12-17-2022 Miscellaneous Notes Patient given results and verbalized understanding of instructions given. Marge Burnham Urine culture did not grow anything specific. Specimen was contaminated with normal bacteria. If patient's symptoms are persistent patient should follow-up with primary care documented in this encounter [facility] 12-12-2022 History of Present illness Narrative BREAST LUMP HISTORY: This is a 32 year old female Presents with breast mass right Mass has been present for 2 months. Notices this comes and goes with her cycle. Pain bilaterally at times. No nipple discharge. Left breast with pink/purple discoloration on lower aspect of breast and states has just got bigger. Tenderness No Change in sizeNo Any history breast mass No No mammogram but history of left breast mass she palpated and Left breast ultrasound negative 10/03/2017 Any previous breast surgery No Any family history breast disease/ breast cancer No OB History T0 L0 SAB0 IAB0 Ectopic0 Multiple0 Live Births0 PAST MEDICAL HISTORY Diagnosis Date Allergy 09/11/2013 Asthma 09/27/2012 Excessive daytime sleepiness 08/16/2016 Fibrocystic breast disease in female 09/11/2013 Hyperlipidemia LDL goal <130 07/31/2014 Morbid obesity (HCC) Rosacea 09/27/2012 Vitamin D deficiency 08/04/2014 PAST SURGICAL HISTORY Procedure Laterality Date COLONOSCOPY SCREENING 11/28/2021 focal 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 EGD W/O BRSH SPEC VARICIES INJ 11/28/2021 Normal REMOVE TONSILS/ADENOIDS,12+ Y/O TONSILLECTOMY HX FAMILY HISTORY Problem Relation Age of Onset Asthma Mother Hyperlipidemia Mother Osteoporosis Mother Diabetes Father Psoriasis Father Arthritis Father Diabetes Maternal Grandmother Heart Maternal Grandmother tachycardia Hypertension Maternal Grandmother None Maternal Grandfather Asthma Paternal Grandmother Stroke Paternal Grandmother Colon Cancer Maternal Uncle SOCIAL HISTORY Social History Tobacco Use Smoking status: Never Smokeless tobacco: Never Vaping Use Vaping Use: Never used Substance Use Topics Alcohol use: No Drug use: No PAST SURGICAL HISTORY Procedure Laterality Date COLONOSCOPY SCREENING 11/28/2021 focal 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 EGD W/O BRSH SPEC VARICIES INJ 11/28/2021 Normal REMOVE TONSILS/ADENOIDS,12+ Y/O TONSILLECTOMY HX Current Outpatient Medications Medication Sig atorvastatin (LIPITOR) 20 mg tablet Take 1 tablet by mouth daily at bedtime. For cholesterol. semaglutide (OZEMPIC) 0.25 mg or 0.5 mg(2 mg/1.5 mL) pen Inject 0.25 mg subcutaneously one time a week. predniSONE (DELTASONE) 10 mg tablet Take 10 mg by mouth as needed. albuterol (PROVENTIL) 2.5 mg /3 mL (0.083 %) nebulizer solution Use 3 mL via nebulizer every 6 hours as needed for wheezing/shortness of breath. Use over 5-15minutes. albuterol HFA (VENTOLIN HFA) 90 mcg/actuation inhaler Inhale 2 Puffs as instructed every 4 hours as needed for wheezing/shortness of breath. ergocalciferol 50,000 unit capsule (VITAMIN D2, DRISDOL) Take 1 capsule by mouth one time a week. clotrimazole-betamethasone (LOTRISONE) cream APPLY TO AFFECTED AREA TWICE A DAY polyethylene glycol 3350 (MIRALAX) 17 gram/dose powder Take 17 g by mouth once daily. Dissolve dose in 4 - 8 ounces of liquid and take as directed. EPINEPHrine (EPIPEN) 0.3 mg/0.3 mL auto-injector 0.3 ml subcutaneous as needed for severe allergic reaction/may substitute. fluticasone-vilanterol (BREO ELLIPTA) 200-25 mcg/dose inhaler Inhale 1 Inhalation as instructed once daily. Inhale one puff once daily. DO NOT CLICK OPEN UNTIL READY FOR DOSE multivitamin tablet Take 1 tablet by mouth once daily. ascorbic acid (RANDA-C ORAL) Take 2,000 mg by mouth once daily. Nebulizer 1 Each once daily. NEBULIZER FOR HOME USE. DX: asthma J 45.909 No current facility-administered medications for this visit. Allergies As of Date: 12/12/2022 Allergen Noted Reaction SHELLFISH DERIVED 09/27/2012 Anaphylaxis KEFLEX [CEPHALEXIN] 11/22/2013 Rash LATEX 01/21/2016 Rash PREVNAR 20 (PF) [PNEUMOC 20-GUNJAN C*08/24/2022 Other: See Comments Fully Assessed 12/12/2022 EXAMINATION: There is no concerning cervical, supraclavicular, or axillary lymphadenopathy. She has no fibrocystic changes. On the bilaterally are no dominant masses, skin changes or nipple discharge. Breasts with hyperpigmentation near areola and appear to be capillary vessels IMPRESSION: 1. Breast pain - ICD9: 611.71, ICD10: N64.4 - US BREAST LTD RIGHT - CATHY DIAGNOSTIC BILATERAL - US BREAST LTD LEFT PLAN:A discussion was held with the patient and patient and mother who agrees with Imaging. Will return for results. Discussed good supportive bra. Carolee Daley APRN.CNM documented in this encounter [facility] 12-11-2022 History of Present illness Narrative Radiology Service Progress Note PATIENT NAME: Don Rodas DATE OF SERVICE: December 11, 2022 TIME: 1:21 PM PATIENT IDENTITY VERIFICATION COMPLETED USING TWO (2) IDENTIFIERS: Name and Date of confirmed by patient verbally. FALL SCREENING: Has the patient had 2 falls in the last year or 1 fall with injury or currently using an Ambulatory Assistive Device (Walker, Cane, Wheelchair, Crutches, etc.)? No PATIENT GENDER DATA: Female. status: : No status: NO. PATIENT RELEVANT IMPLANT DATA REVIEWED: Yes RADIOLOGY DEPARTMENT: General X-ray: Exam(s) Completed: Chest X-Ray PERIPHERAL IV DATA: Not applicable SIGNED BY: RT Reshma(R) December 11, 2022 1:21 PM documented in this encounter [facility] 12-11-2022 History of Present illness Narrative 12/11/2022 Patient presents with: Cough: Congestion, asthma x 1 week SUBJECTIVE: This is a 32 year old that is here today for Complaint(s) of cough and congestion 1 week. PMH asthma, using Breo everyday, and albuterol nebulizer prn-using it once a day per patient. She was seen in the ER on Sunday, given prednisone and discharged. She did not have any testing or CXR completed Still having a cough and intermittent wheezing with some SOB. Denies fever/chills, leg swelling, calf pain. PAST MEDICAL HISTORY Diagnosis Date Allergy 09/11/2013 Asthma 09/27/2012 Excessive daytime sleepiness 08/16/2016 Fibrocystic breast disease in female 09/11/2013 Hyperlipidemia LDL goal <130 07/31/2014 Morbid obesity (HCC) Rosacea 09/27/2012 Vitamin D deficiency 08/04/2014 ALLERGIES Keflex [Cephalexin], Latex, Prevnar 20 (Pf) [Pneumoc 20-Gunjan Conj-Dip Cr(Pf)], and Shellfish Derived MEDICATIONS Current Outpatient Medications Medication Sig semaglutide (OZEMPIC) 0.25 mg or 0.5 mg(2 mg/1.5 mL) pen Inject 0.25 mg subcutaneously one time a week. atorvastatin (LIPITOR) 20 mg tablet Take 1 tablet by mouth daily at bedtime. For cholesterol. albuterol (PROVENTIL) 2.5 mg /3 mL (0.083 %) nebulizer solution Use 3 mL via nebulizer every 6 hours as needed for wheezing/shortness of breath. Use over 5-15minutes. albuterol HFA (VENTOLIN HFA) 90 mcg/actuation inhaler Inhale 2 Puffs as instructed every 4 hours as needed for wheezing/shortness of breath. ergocalciferol 50,000 unit capsule (VITAMIN D2, DRISDOL) Take 1 capsule by mouth one time a week. clotrimazole-betamethasone (LOTRISONE) cream APPLY TO AFFECTED AREA TWICE A DAY polyethylene glycol 3350 (MIRALAX) 17 gram/dose powder Take 17 g by mouth once daily. Dissolve dose in 4 - 8 ounces of liquid and take as directed. EPINEPHrine (EPIPEN) 0.3 mg/0.3 mL auto-injector 0.3 ml subcutaneous as needed for severe allergic reaction/may substitute. fluticasone-vilanterol (BREO ELLIPTA) 200-25 mcg/dose inhaler Inhale 1 Inhalation as instructed once daily. Inhale one puff once daily. DO NOT CLICK OPEN UNTIL READY FOR DOSE multivitamin tablet Take 1 tablet by mouth once daily. ascorbic acid (RANDA-C ORAL) Take 2,000 mg by mouth once daily. Nebulizer 1 Each once daily. NEBULIZER FOR HOME USE. DX: asthma J 45.909 predniSONE (DELTASONE) 10 mg tablet Take 10 mg by mouth as needed. (Patient not taking: Reported on 12/11/2022) No current facility-administered medications for this visit. SOCIAL HISTORY Social History Tobacco Use Smoking status: Never Smokeless tobacco: Never Vaping Use Vaping Use: Never used Substance Use Topics Alcohol use: No Drug use: No REVIEW OF SYSTEMS See HPI OBJECTIVE: BP 96/62 Pulse 75 Temp 36.4 C (97.6 F) Resp 21 Wt 97.9 kg (215 lb 12.8 oz) LMP 12/23/2021 (Approximate) SpO2 100% BMI 39.47 kg/m APPEARANCE Well appearing, alert, in no acute distress, well-hydrated, well nourished. EYES PERRLA, conjunctiva and sclera normal. EARS External ears normal, canals clear. TMs normal NILA NOSE/SINUS Nares normal. Septum midline. Mucosa normal. No drainage or sinus tenderness. THROAT normal, no erythema NECK Supple, no adenopathy; HEART RRR with normal S1 and S2 LUNG few scattered expiratory wheezes, no rhonchi/rales. No accessory muscle use. Speaking in complete sentences. EXTREMITIES Extremities normal, No deformities, No skin discoloration, No edema, and Normal pulses bilaterally. ASSESSMENT/PLAN: 1. Acute cough - ICD9: 786.2, ICD10: R05.1 (primary diagnosis) Supportive care with fluids, rest, OTC cough/cold meds - XR CHEST 2V FRONTAL/LAT-unremarkable Continue prednisone and albuterol prn - COVID & INFLUENZA A/B & RSV NAAT, ROUTINE - COVID NAAT, UPPER RESPIRATORY, ROUTINE - ROUTINE FLU A/B + RSV 2. Hyperlipidemia LDL goal <130 - ICD9: 272.4, ICD10: E78.5 Requests refill to a new pharmacy - ATORVASTATIN 20 MG TABLET The patient indicates understanding of these issues and agrees with the plan. Reviewed red flags and when to seek care sooner. Katy Craig PA-C documented in this encounter [facility] 12-09-2022 Discharge summary Note Date/Time December 09, 2022 9:17pm [facility] Medical Records Department [address] [place] [address] Emergency Department Summary 12/09/22 MR#: [id number] Acct: [id number] Name: DON RODAS Rep #:[id number] : 1990 32 From: Jorge Mehta DO PCP: Dr. Ariana Bhagat MD Status:REG E R Location: ED HPI History of Present Illness Chief Complaint: Asthma Detail of Chief Complaint: Cough and mild shortness of breath Informant: patient Narrative Narrative: Patient presents with cough and some mild shortness of breath. She had a cough for 3 days. She denies fever. Cough nonproductive. Her mother works with children that have RSV. Patient denies chest pain. Patient has history of asthma and has been using her inhaler which does help somewhat. No recent travel or surgery. [facility] Medical History (Updated 12/09/22 @ 21:[address] Jorge Mehta DO) Asthma Home Medications cholecalciferol (vitamin D3) 1,250 mcg (50,000 unit) capsule See Rx Instructions.Route .COMPLEX #12 caps 06/10/19 [Rx Last Taken Unknown] epinephrine 0.3 mg/0.3 mL injection, auto-injector 0.3 ml IM ONCE PRN anaphylaxis #1 ea 10/21/19 [Rx Last Taken Unknown] fluticasone furoate 200 mcg-vilanterol 25 mcg/dose inhalation powder (Breo Ellipta) 1 inh inhalation DAILY #90 ea 10/21/19 [Rx Last Taken Unknown] albuterol sulfate 0.63 mg/3 mL solution for nebulization 0.63 mg (3 mL) inhalation Q4H PRN shortness of breath or wheezing #90 mL 12/31/19 [Rx Last Taken Unknown] albuterol sulfate 90 mcg/actuation aerosol inhaler 2 puff inhalation Q6H PRN shortness of breath or wheezing #8.5 grams 07/14/20 [Rx Last Taken Unknown] atorvastatin 20 mg tablet 20 mg PO DAILY 07/23/22 [History Last Taken Unknown] semaglutide 0.25 mg or 0.5 mg (2 mg/3 mL) subcutaneous pen injector (Ozempic) 0.25 mg subcut QWEEK 07/23/22 [History Last Taken Unknown] prednisone 20 mg tablet 20 mg PO BID #10 tabs 12/09/22 [Rx Last Taken Unknown] Allergy/AdvReac Type Severity Reaction Status Date / Time Fish Containing Products Allergy Severe Anaphylaxis Verified 08/21/22 06:49 shellfish derived Allergy Severe Anaphylaxis Verified 08/21/22 06:49 azithromycin Allergy Mild Rash Verified 08/21/22 06:49 cephalexin monohydrate Allergy Rash Verified 08/21/22 06:49 [From Keflex] iodine Allergy Anaphylaxis Verified 08/21/22 06:49 latex Allergy Unknown Verified 08/21/22 06:49 Family History Other Arthritis Asthma Hyperlipemia Osteoporosis Thyroid disorder Surgical History History of tonsillectomy Social History Smoking Status: Never smoker alcohol intake: never substance use type: does not use caffeine: Yes what type of physical activity do you participate in: none and walking seatbelt use: always do you feel safe at home: Yes additional social history: Single-works at [employer] ROS ROS ED Review of Systems ROS Unobtainable: other Constitutional Constitutional ED: Reports lethargy; Denies chills, fever(s), sweats or weight loss Eyes Eyes: Denies blurry vision, change in vision or diplopia ENT ENT ED: Denies rhinorrhea or sore throat Cardiovascular Cardiovascular: Denies chest pain, orthopnea or racing heartbeat Respiratory/Chest Respiratory/Chest: Reports cough and dyspnea; Denies dyspnea on exertion, orthopnea or sputum Gastrointestinal Gastrointestinal: Denies abdominal pain, diarrhea, nausea or vomiting Genitourinary Genitourinary ED: Denies dysuria, hematuria or urinary frequency Musculoskeletal Musculoskeletal: Denies arthralgias, back pain, myalgias or neck pain Integumentary Denies abscess, Abrasions or rash Neurologic Neurologic: Denies headache(s) or weakness Psychiatric Psychiatric: Denies anxiety, depression or suicidal thoughts Endocrine Endocrinology: Denies polydipsia, polyphagia or polyuria Hematologic/Lymphatic Hematologic/Lymphatic: Denies easy bleeding, easy bruising or lymphadenopathy Allergic/Immunologic Allergic/Immunologic ED: Denies mouth swelling, tongue swelling or urticaria EXAM Physical Exam Const Vital Signs: 12/09/22 20:58 12/09/22 21:01 12/09/22 21:08 Temperature 97.6 F L 97.6 F L Temperature Source Temporal Temporal Pulse Rate 78 78 Respiratory Rate 16 16 Respiratory Effort Short of Breath Labored Blood Pressure 112/70 112/70 Blood Pressure Mean 84 84 Pulse Ox 100 100 Positive well nourished and well developed General Appearance ED: well developed and NAD HEENT Reports TM's clear and moist mucous membranes normocephalic and atraumatic; Negative for trauma or tenderness Tympanic Membrane ED: Yes TM's clear Eyes PERRL and EOMs intact bilaterally General Eye ED: Negative for pale conjunctiva or scleral icterus Neck no lymphadenopathy, supple and no JVD General: Negative for tenderness Chest Wall inspection of chest normal and palpation of chest normal Chest: Negative for tenderness Resp normal respiratory effort Resp Narrative: Faint mild expiratory wheezes bilaterally. No tachypnea. No accessory muscle use or retractions. No conversational dyspnea. Effort and Inspection: Negative for respiratory distress or pain with movement Auscultation: wheezes; Negative for rhonchi or diminished lung sounds Cardio regular rate, regular rhythm, S1 normal heart sound, S2 normal heart sound and no murmurs Peripheral Pulses: pulses 2+ throughout GI normal to inspection, nondistended, normoactive bowel sounds, soft to palpation,non-tender, non-distended and no masses Back/Spine no CVA tenderness and no thoracic nor lumbar tenderness Extremity normal to inspection General Extremety ED: Negative for edema General Extremity: Negative for edema Neuro oriented x3, CN's II-XII intact bilaterally, no sensory deficits noted and gait normal Sensorium / Orientation: awake, alert, oriented to person, oriented to place andoriented to time Motor Exam: strength 5/5 throughout and strength abnormal Psych mental status grossly normal Skin no rashes or lesions noted and no wounds MDM MDM MDM Narrative Medical decision making narrative: Patient presents with 3-day history of cough and history of asthma. Clinically she looks well. I do not feel imaging is indicated. I did offer testing for COVID or influenza however she states that she has had both vaccines and does not want to have the testing. Clinically I do not feel this changes treatment. Suspect likely of viral asthmatic bronchitis. We will give a DuoNeb aerosol andwill dispense an albuterol MDI for home. Will start on prednisone. Advised to follow-up with primary care physician within next 3 to 5 days. Advised to return if increasing shortness of breath or condition should worsen anyway. Discharge Plan Triage Chief Complaint: Asthma ED Provider: Jorge Mehta Dx/Rx/DC Orders Clinical Impression: Bronchitis, asthmatic Instructions: ED Bronchitis with Wheezing (Adult), ED Inhaler Use Prescriptions: New prednisone 20 mg tablet 20 mg PO BID Qty: 10 0RF No Action atorvastatin 20 mg tablet 20 mg PO DAILY Patient Comments: TAKE 1 TABLET BY MOUTH DAILY AT BEDTIME. FOR CHOLESTEROL Ozempic 0.25 mg or 0.5 mg (2 mg/3 mL) pen injector 0.25 mg SUBCUT QWEEK Patient Comments: inject 0.25 mg SUBCUTANEOUSLY one time per week cholecalciferol (vitamin D3) 1,250 mcg (50,000 unit) capsule See Rx Instructions .ROUTE .COMPLEX Qty: 12 1RF Dose Instruction: TAKE 1 CAPSULE BY MOUTH EVERY WEEK Rx Instructions: TAKE 1 CAPSULE BY MOUTH EVERY WEEK epinephrine 0.3 mg/0.3 mL auto-injector 0.3 ml IM ONCE PRN (Reason: anaphylaxis) Qty: 1 0RF Breo Ellipta 200-25 mcg/dose blister with device 1 inh INHALATION DAILY Qty: 90 3RF albuterol sulfate 0.63 mg/3 mL solution for nebulization 0.63 mg INHALATION Q4H PRN (Reason: shortness of breath or wheezing) Qty: 90 2RF albuterol sulfate 90 mcg/actuation HFA aerosol inhaler 2 puff inhalation Q6H PRN (Reason: shortness of breath or wheezing) Qty: 8.5 1RF Rx Instructions: INHALE 2 PUFFS EVERY 6 HOURS NEEDED FOR SHORTNESS OF BREATH OR WHEEZING Primary Care Provider: Ariana Bhagat Referrals: Ariana Bhagat MD [Primary Care Provider] - 3-5 Days What to do if you have Problems For any increased pain, shortness of breath, bleeding, nausea or vomiting, chestpain, or any unexpected problems, contact your Primary Care Provider. Call [facility] ([phone]) or report to the closest Emergency Room. Call 911 if necessary. 12/09/222117 <Electronically signed by Jorge Mehta DO> Cosigner Signature (if applicable): CC: Dr. Ariana Bhagat MD ~ Signed [facility] Work Phone: [phone]) 548-625610-09-2023 Miscellaneous Notes* Telephone Encounter - Ilya Abraham PA-C - 11/13/2022 4:52 PM EDT The following approved medication requests have been transmitted electronically. Requested Prescriptions Signed Prescriptions Disp Refills semaglutide (OZEMPIC) 0.25 mg or 0.5 mg(2 mg/1.5 mL) pen 1 mL 3 Sig: Inject 0.25 mg subcutaneously one time a week. Ilya Abraham PA-C * Telephone Encounter - Raven Luevano LPN - 11/13/2022 8:35 AM EDT Patient has been identified by name and date of : Yes Requested Prescriptions Pending Prescriptions Disp Refills semaglutide (OZEMPIC) 0.25 mg or 0.5 mg(2 mg/1.5 mL) pen 1 mL 3 Sig: Inject 0.25 mg subcutaneously one time a week. RX INSTRUCTIONS: Patient aware RX will be sent to pharmacy. No need to notify patient. [place] 06/08/22 Raven Luevano LPN [facility] Miscellaneous Notes* Telephone Encounter - Kim Russell Ma - 09/08/2022 2:46 PM EDT Patient and mother notified * Telephone Encounter - Ariana Bhagat MD - 09/08/2022 2:23 PM EDT Right before bed. * Telephone Encounter - Bel Anderson RN - 09/08/2022 2:18 PM EDT Patient returned call and provider's message was reviewed with verbalized understanding. Patient asking Dr. Bhagat: She is to take the Paxlovid twice a day and if she takes 1st dose this afternoon, can she take the second dose tonight before going to bed, and if so what time? Thank you. * Telephone Encounter - Marlene Dickinson RN - 09/08/2022 12:53 PM EDT Mother (Christoph) returns call. Continues to be upset. Informed her that message remained the same as previously recommended by Dr. Bhagat. Christoph will inform patient who is currently at work and patient will call back if any questions. Marlene Dickinson RN * Telephone Encounter - Ilya Benson RN - 09/08/2022 12:39 PM EDT Left vm for patient to return call to nurse for provider's message. * Telephone Encounter - Ariana Bhagat MD - 09/08/2022 12:23 PM EDT See below. Same thing I already told them. Stop the atorvastatin and breo only. Rest are ok. Agree with paxlovid * Telephone Encounter - Renetta Garcia - 09/08/2022 11:35 AM EDT Called and spoke with patient in which her mother took the phone and started getting upset. Mother is very scared that patient is COVID POS. She wants to know if Dr. Bhagat agrees with course of treatment of Paxlovid Rx'd by online provider? Wants to know which medications Don needs to stop while on Paxlovid and for how long? Supposedly was advised by online provider to hold Breo and Atorvastatin. Mother also inquiring about Ozempic. Mother wants Dr. Bhagat's opinion on everything first because he knows Don's history. Renetta Garcia * Telephone Encounter - Ariana Bhagat MD - 09/08/2022 8:44 AM EDT Agree. Let her know in the future, there is no urgency to do the virtual visit, I would have just called it in without an additional visit and saw it on arrival in the office this am. She should hold the meds they mentioned. * Telephone Encounter - Ilya Benson RN - 09/08/2022 8:20 AM EDT Patient phoned to report she is covid+. Reports she had a VV with online provider and that providersent Rx for [facility]id to [facility]. Patient has not picked it up yet as online provider instructed her to ask pcp if it would interfere with any of her current medications. Online provider instructed her not to take her Breo or cholesterol medication. Patient asking pcp to advise. Given provider's message below with verbalized understanding. Patient had scheduled a VV for this morning but was unable to cancel since too soon to appt time. Patient asking if she will be charged for this. * Telephone Encounter - Ariana Bhagat MD - 09/08/2022 8:04 AM EDT Let her know her covid came back positive. I believe her symptoms only started a few days ago. Is she willing to try an antiviral med to help shorten the course? Let me know Call if more short of breath or high fever. In quarantine for five days from onset of symptoms and in mask around anyone for 10 days. [facility] Miscellaneous Notes* Telephone Encounter - Ariana Bhagat MD - 09/08/2022 8:18 AM EDT See te * Telephone Encounter - Aristeo Lambert LPN - 09/08/2022 8:11 AM EDT See pt MC message- pt was seen yesterday. Aristeo Lambert LPN [facility] History of Present illness Narrative* Georgie Heck MD - 09/08/2022 8:14 AM EDT Appointment cancelled after it appeared patient signed on. documented [facility] History of Present illness Narrative* Humera Byrne - 09/07/2022 10:24 PM EDT null (CCF:Not available AMW:[id number]) Visit Summary for Don Rodas - Gender: Female - Date of : 1990 ( ) Date: - Duration: 9 minutes Patient: Don Rodas Provider: Alden Woodward Patient Contact Information Address [address] [place] [phone] Visit Topics Covid [Added By: Self - 2022-09-08] Triage Questions REQUIRED: Do you have Medicare or Medicaid Insurance?Answer [Medical Insuranse] Do you have a cough, shortness of breath, difficulty breathing, fever, chills, headache, sore throat, muscles aches, acute change in smell or taste?Answer [Headache] Have you been in contact with anyone confirmed with COVID 19 or suspected of having COVID 19 within the past 14 days?Answer [No] Do you have any vulnerable family members in the home (infant, , weak immune system, lung disease, active cancer, elderly)?Answer [No] Do you have any of the following: weak immune system, asthma or chronic lung disease, kidney problems and on dialysis, active cancer, diabetes or heart disease or high blood pressure , HIV or organ transplant?Answer [No] Are you currently working in a healthcare facility?Answer [No] What is the address where you are currently located? This is important in case of a medical emergency.Answer [[address] [place] [phone]] Please enter a number I can contact you in the event we are disconnected.Answer [[phone]] Conversation Transcripts [Notification] You are connected with Alden Woodward, Family Physician.[Notification] Don Rodas is located in [place].[Notification] Don Rodas has shared health history...[Notification] Alden Woodward has issued a sick slip.[Notification] Alden Woodward has added a diagnosis/procedure code.[Notification] Alden Woodward has added a diagnosis/procedure code.[Notification] Alden Woodward has added a prescription. Diagnosis COVID-19 Value: U07.1 Code: ICD-10-CM Procedures Value: [id number] Code: CPT-4 OL DIG E/M SVC 11-20 MIN Medications Prescribed Paxlovid (EUA) Strength : 150 mg x 2- 100 mg Frequency : Patient Instructions : 300 mg nirmatrelvir (two 150-mg tablets) with 100 mg ritonavir (one 100-mg tablet) with all 3 tablets taken together orally BID x 5 days Refills : 0 Instructions to the Pharmacist : Hold any medicines that interact with paxlovid while taking paxlovid. Alden Woodward MD JENNIFER, , . Please do not call or fax refill requests. Substitutions allowed ProAir HFA Frequency : Breo Ellipta Frequency : Provider Notes Over the past few days pt developed URI sxs, scratchy throat, has been feverish, no exudate, no c/oadenopathy, some rhinitis, has cough, achy and tired. No documented exposure to strep. No audible wheeze/stridor or labored breathing. Visually is not toxic, not in distress, not in extremis.covid test positiveday 3 sxsDoes not sound toxic, in distress, or in extremis. Phonation normal, speech normal, pt is interactive and answers questions appropriately.Gen: Alert, no acute distress, appears stated age. Not in distress, not in extremis. Appears comfortable at rest. HEENT: Sclera clear, no nasal discharge, hearing grossly intactNeck: Trachea appears midline, no gross thyromegalyPulmonary: Breathing unlabored, breathing comfortably on room air, no audible wheeze or stridor, no cyanosisMusculoskeletal: No gross abnormality, no asymmetry or weakness observed Neuro: Awake, alert, answering questions appropriatelyPsych: normal speech and content, affect and mood appropriateVisually is not toxic, not in distress, not in extremis.PMH: Covid vaccinated 5'2 224# bmi 41.0 asthma Hyperlipidemia, unspecifiedAttention-deficit hyperactivity disorder, unspecified typeUnspecified asthma, uncomplicatedAllergy, unspecifiedlast liver/kidney labs normal PSH: tonsils meds: ProAir HFABreo Ellipta (interacts with paxlovid)ozempic (not diabetic)atorvastatin (hold while on paxlovid)Allergic to Keflex SH: no tob A: covid, antiviral requested, Rx indicated based on PMH and/or BMI consistent with CDC treatment guidelines P: Discussed options. Recommend supportive treatment and/or symptom relief rx as below. Fluids, rest, tylenol. Follow up if worsening in 5-7 days and follow up by secure message with any questions or concerns. Discussed precautions.Please see your regular doctor at least once a year for an interval check.If you do not have a primary care doctor please find one at your earliest convenience as telemedicine is not a substitute for primary care.Secure messaging is not to be used in an emergency as it can take several days for a reply.-Please print a copy of this note and send itto your regular doctor, or take it to your next visit so it may be included in your medical record.Go to the nearest hospital emergency room if your symptoms worsen or dramatically change in nature or if you feel like you have developed an emergency condition.If a prescription was sent this visit and the pharmacy says they did not receive the prescription(s) in 2 hours then you can send me a secure message and I will call them.If I am not online you can also call the Pharmacy help line: [phone] Electronically signed by: Alden Woodward( ) documented in this encounterTrinity [facility]08-03-2023 History of Present illness Narrative* Ariana Bhagat MD - 09/07/2022 8:34 AM EDT Patient presents with: Follow Up HPI: Patient presents today for office visit for follow up for refill on her Ozempic. Reports that is tolerating well. Is losing weight. Has lost a significant amount of weight. Is counting calories. Feeling well. She is very pleased. Discussed risks and benefits of meds. She is extremely well. Feeling ok with ozempic. She wants to stay on current dose and not change it. Has went down from a size 22 to 14! She is doing quite well with regimen. We will do labs. No chest pain or shortness of breath. No edema. No myalgias. No dizziness. Has a mild stuffy nose and itchy watery eyes. No fever or chills. Mild scratchy throat. No sore throat. No issues with taste or smell. No gi issues. MEDICATIONS: Current Outpatient Medications Medication Sig predniSONE (DELTASONE) 10 mg tablet Take 10 mg by mouth as needed. ergocalciferol 50,000 unit capsule (VITAMIN D2, DRISDOL) Take 1 capsule by mouth one time a week. clotrimazole-betamethasone (LOTRISONE) cream APPLY TO AFFECTED AREA TWICE A DAY polyethylene glycol 3350 (MIRALAX) 17 gram/dose powder Take 17 g by mouth once daily. Dissolve dosein 4 - 8 ounces of liquid and take as directed. semaglutide (OZEMPIC) 0.25 mg or 0.5 mg(2 mg/1.5 mL) pen Inject 0.25 mg subcutaneously one time a week. EPINEPHrine (EPIPEN) 0.3 mg/0.3 mL auto-injector 0.3 ml subcutaneous as needed for severe allergic reaction/may substitute. fluticasone-vilanterol (BREO ELLIPTA) 200-25 mcg/dose inhaler Inhale 1 Inhalation as instructed once daily. Inhale one puff once daily. DO NOT CLICK OPEN UNTIL READY FOR DOSE multivitamin tablet Take 1 tablet by mouth once daily. ascorbic acid (RANDA-C ORAL) Take 2,000 mg by mouth once daily. albuterol HFA (VENTOLIN HFA) 90 mcg/actuation inhaler Inhale 2 Puffs as instructed every 4 hours asneeded for wheezing/shortness of breath. atorvastatin (LIPITOR) 20 mg tablet Take 1 tablet by mouth daily at bedtime. For cholesterol. albuterol (PROVENTIL) 2.5 mg /3 mL (0.083 %) nebulizer solution Use 3 mL via nebulizer every 6 hours as needed for wheezing/shortness of breath. Use over 5-15minutes. Nebulizer 1 Each once daily. NEBULIZER FOR HOME USE. DX: asthma J 45.079 No current facility-administered medications for this visit. ALLERGIES: ALLERGIES Allergen Reactions Keflex [Cephalexin] Rash Latex Rash Prevnar 20 (Pf) [Pn* Other: See Comments Allergies. Shellfish Derived Anaphylaxis PAST MEDICAL HISTORY Diagnosis Date Allergy 09/11/2013 Asthma 09/27/2012 Excessive daytime sleepiness 08/16/2016 Fibrocystic breast disease in female 09/11/2013 Hyperlipidemia LDL goal <130 07/31/2014 Morbid obesity (HCC) Rosacea 09/27/2012 Vitamin D deficiency 08/04/2014 PAST SURGICAL HISTORY Procedure Laterality Date COLONOSCOPY SCREENING 11/28/2021 focal 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 EGD W/O BRSH SPEC VARICIES INJ 11/28/2021 Normal REMOVE TONSILS/ADENOIDS,12+ Y/O TONSILLECTOMY HX FAMILY HISTORY Problem Relation Age of Onset Asthma Mother Hyperlipidemia Mother Osteoporosis Mother Diabetes Father Psoriasis Father Arthritis Father Diabetes Maternal Grandmother Heart Maternal Grandmother tachycardia Hypertension Maternal Grandmother None Maternal Grandfather Asthma Paternal Grandmother Stroke Paternal Grandmother Colon Cancer Maternal Uncle Social History Tobacco Use Smoking status: Never Smokeless tobacco: Never Vaping Use Vaping Use: Never used Substance Use Topics Alcohol use: No Drug use: No Reviewed current medications, allergies, past medical history, surgical history, family history andsocial history today. REVIEW OF SYSTEMS All other reviewed and negative other than HPI. HEALTH MAINTENANCE: Reviewed health maintenance issues today and recommended the following in detail. HEPATITIS B(1 of 3 - 3-dose series) was done. SPIROMETRY Never done HEPATITIS C SCREENING Never done HIV SCREENING Never done DEPRESSION ASSESSMENT Never done VITALS: BP 88/58 Pulse 60 Ht 157.5 cm (5' 2) Wt 101.8 kg (224 lb 6.4 oz) LMP 12/23/2021 (Approximate) SpO2 96% BMI 41.04 kg/m Last 4 Encounter Wt Readings: Date: Wt: 06/08/2022 113.9 kg (251 lb) 05/09/2022 122 kg (269 lb) 01/19/2022 114.8 kg (253 lb) 09/20/2021 112 kg (247 lb) PHYSICAL EXAMINATION: General appearance: Well appearing, alert, in no acute distress, well-hydrated, well nourished. Skin: Skin color, texture, turgor normal, no suspicious rashes or lesions Head: Normocephalic, no masses, lesions, tenderness or abnormalities Eyes: Anicteric sclera. Pupils are equally round and reactive to light. Extraocular movements are intact. Ears: External ears normal, canals clear Nose/Sinuses: Nares normal, septum midline, mucosa normal, no drainage or sinus tenderness Oropharynx: Lips, mucosa, and tongue normal, teeth and gums normal, oropharynx normal Neck: Supple, no adenopath Lungs: Lungs clear to auscultation. No wheezing, rhonchi, rales Heart: RRR without murmur, gallop, or rubs. No ectopy Abdomen: Normal abdominal exam, Abdomen soft, non-tender. Bowel sounds normal. No masses, organomegaly Extremities: No deformities, edema, skin discoloration, clubbing or cyanosis. Good capillary refill. ASSESSMENT/PLAN: 1. Vitamin D deficiency - ICD9: 268.9, ICD10: E55.9 (primary diagnosis) - stable. - VITAMIN D 25 HYDROXY 2. Obesity, Class III, BMI 40-49.9 (morbid obesity) (HCC) - ICD9: 278.01, ICD10: E66.01 Weight decreasing She is doing well. - OZEMPIC 0.25 MG OR 0.5 MG (2 MG/1.5 ML) SUBCUTANEOUS PEN INJECTOR 3. Hyperlipidemia LDL goal <130 - ICD9: 272.4, ICD10: E78.5 - Control undetermined, due for labs - Continue current medications - ATORVASTATIN 20 MG TABLET - CBC + DIFF - COMP METABOLIC PANEL - LIPID PANEL BASIC 4. Mild intermittent asthma without complication - ICD9: 493.90, ICD10: J45.20 - ALBUTEROL SULFATE HFA 90 MCG/ACTUATION AEROSOL INHALER 5. Congestion of upper airway - ICD9: 519.8, ICD10: J98.8 - check covid. Discussed risks and benefits of new medication with the patient. Advised them to call if any side effects or questions. Red flags for re-assessment reviewed with patient in detail. Call if symptoms worsen at all or if not better in one to two weeks Reviewed diagnosis and treatment options in detail. Questions were answered. Patient expressed understanding of treatment plan. - COVID WITH FLUA+B, ROUTINE 6. Need for hepatitis C screening test - ICD9: V73.89, ICD10: Z11.59 - HEPATITIS C ANTIBODY IA WITH CONFIRMATION 7. Screening for HIV (human immunodeficiency virus) - ICD9: V73.89, ICD10: Z11.4 - HIV 1 2 COMBO(AG/AB),WITH REFLEX TO DIFFERENTIATION Ariana Bhagat MD documented in this encounterTr[facility]07-20-2023 History of Present illness Narrative* Ariana Bhagat MD - 08/24/2022 3:05 PM EDT Patient presents with: Follow Up HPI:This Team Access Model visit is a virtual encounter. It required patient- provider interaction for the medical decision making as documented below. Patient has elected to have a visit through distance medicine I have communicated my name and active licensure. The patient's identity and physical location wereverified at the time of this visit. Either the patient or their legal agency service representative has been informed of the risks and benefits of -- and alternatives to -- treatment through a remote evaluation andconsents to proceed with the evaluation remotely. Got pneumovax on the . Started noticing issues on the and . [facility] and given prednisone. Got some palpitations from it and it stopped it. Was swollen and red and hot. Arm is doing well. Has lost 42 lbs by calorie counting. Saw telemed on 08/20 Given triamcinolone cream History of Present Illness Don Rodas is a 32 year old year old female who presents for the past today day(s) with symptoms that are: Worsening . Pt. Received the Prevnar 20 vaccine at a [facility] on 08/16/22. Had a slight redness which has expanded in the past 24 hours. Pt. With redness, swelling, pain to touch. Pt. Deniesfever. MEDICATIONS: Current Outpatient Medications Medication Sig ergocalciferol 50,000 unit capsule (VITAMIN D2, DRISDOL) Take 1 capsule by mouth one time a week. clotrimazole-betamethasone (LOTRISONE) cream APPLY TO AFFECTED AREA TWICE A DAY triamcinolone acetonide (KENALOG) 0.1 % cream Apply 1 application to affected area twice daily for 14 days. polyethylene glycol 3350 (MIRALAX) 17 gram/dose powder Take 17 g by mouth once daily. Dissolve dosein 4 - 8 ounces of liquid and take as directed. semaglutide (OZEMPIC) 0.25 mg or 0.5 mg(2 mg/1.5 mL) pen Inject 0.25 mg subcutaneously one time a week. EPINEPHrine (EPIPEN) 0.3 mg/0.3 mL auto-injector 0.3 ml subcutaneous as needed for severe allergic reaction/may substitute. fluticasone-vilanterol (BREO ELLIPTA) 200-25 mcg/dose inhaler Inhale 1 Inhalation as instructed once daily. Inhale one puff once daily. DO NOT CLICK OPEN UNTIL READY FOR DOSE multivitamin tablet Take 1 tablet by mouth once daily. pedi multivit no.205/fluoride (HEZEY-ATH-LOKI ORAL) Take by mouth. (Patient not taking: Reported on05/09/2022) ascorbic acid (RANDA-C ORAL) Take 2,000 mg by mouth once daily. albuterol HFA (VENTOLIN HFA) 90 mcg/actuation inhaler Inhale 2 Puffs as instructed every 4 hours asneeded for wheezing/shortness of breath. atorvastatin (LIPITOR) 20 mg tablet Take 1 tablet by mouth daily at bedtime. For cholesterol. albuterol (PROVENTIL) 2.5 mg /3 mL (0.083 %) nebulizer solution Use 3 mL via nebulizer every 6 hours as needed for wheezing/shortness of breath. Use over 5-15minutes. Nebulizer 1 Each once daily. NEBULIZER FOR HOME USE. DX: asthma J 45.909 No current facility-administered medications for this visit. ALLERGIES: ALLERGIES Allergen Reactions Keflex [Cephalexin] Rash Latex Rash Shellfish Derived Anaphylaxis PAST MEDICAL HISTORY Diagnosis Date Allergy 09/11/2013 Asthma 09/27/2012 Excessive daytime sleepiness 08/16/2016 Fibrocystic breast disease in female 09/11/2013 Hyperlipidemia LDL goal <130 07/31/2014 Morbid obesity (HCC) Rosacea 09/27/2012 Vitamin D deficiency 08/04/2014 PAST SURGICAL HISTORY Procedure Laterality Date COLONOSCOPY SCREENING 11/28/2021 focal 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 EGD W/O BRSH SPEC VARICIES INJ 11/28/2021 Normal REMOVE TONSILS/ADENOIDS,12+ Y/O TONSILLECTOMY HX FAMILY HISTORY Problem Relation Age of Onset Asthma Mother Hyperlipidemia Mother Osteoporosis Mother Diabetes Father Psoriasis Father Arthritis Father Diabetes Maternal Grandmother Heart Maternal Grandmother tachycardia Hypertension Maternal Grandmother None Maternal Grandfather Asthma Paternal Grandmother Stroke Paternal Grandmother Colon Cancer Maternal Uncle Social History Tobacco Use Smoking status: Never Smokeless tobacco: Never Vaping Use Vaping Use: Never used Substance Use Topics Alcohol use: No Drug use: No Reviewed current medications, allergies, past medical history, surgical history, family history andsocial history today. REVIEW OF SYSTEMS All other reviewed and negative other than HPI. VITALS: LMP 12/23/2021 (Approximate) Last 4 Encounter Wt Readings: Date: Wt: 06/08/2022 113.9 kg (251 lb) 05/09/2022 122 kg (269 lb) 01/19/2022 114.8 kg (253 lb) 09/20/2021 112 kg (247 lb) PHYSICAL EXAMINATION: Patient is alert and oriented during visit. Answers appropriately. Arm is normal. ASSESSMENT/PLAN: 1. Adverse effect of drug, subsequent encounter - ICD9: V58.89, ICD10: T50.905D Doing better. Avoid prevnar 20 in the future. Ariana Bhagat MD documented in this encounterTrinity [facility]07-20-2023 Miscellaneous Notes* Telephone Encounter - Caroline Lockett OCCA - 08/24/2022 8:33 AM EDT Patient has been identified by name and date of : Yes Patient phones for refill(s): Requested Prescriptions Pending Prescriptions Disp Refills ergocalciferol 50,000 unit capsule (VITAMIN D2, DRISDOL) 12 capsule 3 Sig: Take 1 capsule by mouth one time a week. Date of last office visit in primary care: [facility] ([facility]) 08/07/22 NOV 09/06/22 Last 2 Encounter Wt Readings: Date: Wt: 06/08/2022 113.9 kg (251 lb) 05/09/2022 122 kg (269 lb) Please advise. Thank you. REDDY Isabel documented in this encounterTrinity [facility]07-19-2023 Miscellaneous Notes* Telephone Encounter - Doris Chaves LPN - 08/23/2022 3:55 PM EDT See pharmacy generated refill request. Please advise. Doris Chaves LPN documented in this encounterTrinity Health [facility]07-03-2023 History of Present illness Narrative* Ariana Bhagat MD - 08/07/2022 8:38 AM EDT Patient presents with: Follow Up HPI:This Team Access Model visit is a virtual encounter. It required patient- provider interaction for the medical decision making as documented below. Patient has elected to have a visit through distance medicine I have communicated my name and active licensure. The patient's identity and physical location wereverified at the time of this visit. Either the patient or their legal agency service representative has been informed of the risks and benefits of -- and alternatives to -- treatment through a remote evaluation andconsents to proceed with the evaluation remotely. Was instructed to get senna. Is somewhat better. No current blood in stools. Has changed diet consistently and now is down to 230! Has lost nearly 40 lbs. Has been limiting calories. Is watching everything she eats. She is counting her calories aggressively Occasional cramping. Discussed adding more fiber Discussed pneumovax She is following with ortho. Seen at urgent care in June. Don Rodas is a 31 year old year old female who presents for the past 2 day(s) with symptoms of no bm in 2 days, lower abdominal cramping that comes and goes, and intermittent nausea that arestable Symptoms include:Negative for Emesis, Diarrhea - Number and description: , Blood in Stool, Abdominal Pain, Fever , Chills/Sweats, Headache, Irritability, Dizziness, Fatigue, Lethargy, Urinary Symptoms, Arthralgias, Myalgias, Cough, and SOB / Wheezing No history of gastrointestinal disease. No known risk factors for parasitic or bacterial infection. Oral intake: adequate Sick contacts: no Recent travel: no Recent Antibiotic use: no Recent Hospitalization: no Number and description of stool: NA OTC meds/remedies that patient has tried: one dose of miralax yesterday in the morning Had same symptoms before and was told her gallbladder caused her constipation. She still has her gallbladder. States she typically has daily bms. No diet change. Able to eat and drink without difficulty. + flatus. No excessive belching or flatus. MEDICATIONS: Current Outpatient Medications Medication Sig semaglutide (OZEMPIC) 0.25 mg or 0.5 mg(2 mg/1.5 mL) pen Inject 0.25 mg subcutaneously one time a week. EPINEPHrine (EPIPEN) 0.3 mg/0.3 mL auto-injector 0.3 ml subcutaneous as needed for severe allergic reaction/may substitute. fluticasone-vilanterol (BREO ELLIPTA) 200-25 mcg/dose inhaler Inhale 1 Inhalation as instructed once daily. Inhale one puff once daily. DO NOT CLICK OPEN UNTIL READY FOR DOSE clotrimazole-betamethasone (LOTRISONE) cream Apply 1 application to affected area twice daily. multivitamin tablet Take 1 tablet by mouth once daily. pedi multivit no.205/fluoride (OYPCJ-IOO-QGWY ORAL) Take by mouth. (Patient not taking: Reported on05/09/2022) ascorbic acid (RANDA-C ORAL) Take 2,000 mg by mouth once daily. ergocalciferol 50,000 unit capsule (VITAMIN D2, DRISDOL) Take 1 capsule by mouth one time a week. albuterol HFA (VENTOLIN HFA) 90 mcg/actuation inhaler Inhale 2 Puffs as instructed every 4 hours asneeded for wheezing/shortness of breath. atorvastatin (LIPITOR) 20 mg tablet Take 1 tablet by mouth daily at bedtime. For cholesterol. albuterol (PROVENTIL) 2.5 mg /3 mL (0.083 %) nebulizer solution Use 3 mL via nebulizer every 6 hours as needed for wheezing/shortness of breath. Use over 5-15minutes. Nebulizer 1 Each once daily. NEBULIZER FOR HOME USE. DX: asthma J 45.099 No current facility-administered medications for this visit. ALLERGIES: ALLERGIES Allergen Reactions Keflex [Cephalexin] Rash Latex Rash Shellfish Derived Anaphylaxis PAST MEDICAL HISTORY Diagnosis Date Allergy 09/11/2013 Asthma 09/27/2012 Excessive daytime sleepiness 08/16/2016 Fibrocystic breast disease in female 09/11/2013 Hyperlipidemia LDL goal <130 07/31/2014 Morbid obesity (HCC) Rosacea 09/27/2012 Vitamin D deficiency 08/04/2014 PAST SURGICAL HISTORY Procedure Laterality Date COLONOSCOPY SCREENING 11/28/2021 focal 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 EGD W/O BRSH SPEC VARICIES INJ 11/28/2021 Normal REMOVE TONSILS/ADENOIDS,12+ Y/O TONSILLECTOMY HX FAMILY HISTORY Problem Relation Age of Onset Asthma Mother Hyperlipidemia Mother Osteoporosis Mother Diabetes Father Psoriasis Father Arthritis Father Diabetes Maternal Grandmother Heart Maternal Grandmother tachycardia Hypertension Maternal Grandmother None Maternal Grandfather Asthma Paternal Grandmother Stroke Paternal Grandmother Colon Cancer Maternal Uncle Social History Tobacco Use Smoking status: Never Smokeless tobacco: Never Vaping Use Vaping Use: Never used Substance Use Topics Alcohol use: No Drug use: No Reviewed current medications, allergies, past medical history, surgical history, family history andsocial history today. REVIEW OF SYSTEMS All other reviewed and negative other than HPI. VITALS: LMP 12/23/2021 (Approximate) Last 4 Encounter Wt Readings: Date: Wt: 06/08/2022 113.9 kg (251 lb) 05/09/2022 122 kg (269 lb) 01/19/2022 114.8 kg (253 lb) 09/20/2021 112 kg (247 lb) PHYSICAL EXAMINATION: Patient is alert and oriented during visit. Answers appropriately. ASSESSMENT/PLAN: 1. Acute constipation - ICD9: 564.00, ICD10: K59.00 (primary diagnosis) - I am thinking it is related to her weight loss and dietary changes. Consider gi if continues. Discussed risks and benefits of new medication with the patient. Advised them to call if any side effects or questions. Red flags for re-assessment reviewed with patient in detail. Call if symptoms worsen at all or if not better in one to two weeks Reviewed diagnosis and treatment options in detail. Questions were answered. Patient expressed understanding of treatment plan. - check ifobt. Wants to continue ozempic. Keep next appt or prn - POLYETHYLENE GLYCOL 3350 17 GRAM/DOSE ORAL POWDER 2. Obesity, Class III, BMI 40-49.9 (morbid obesity) (HCC) - ICD9: 278.01, ICD10: E66.01 - FECAL OCCULT BLOOD TEST Ariana Bhagat MD documented in this encounterTrinity [facility]06-22-2023 Miscellaneous Notes* Telephone Encounter - Ilya Abraham PA-C - 07/27/2022 1:11 PM EDT The following approved medication requests have been transmitted electronically. Requested Prescriptions Signed Prescriptions Disp Refills semaglutide (OZEMPIC) 0.25 mg or 0.5 mg(2 mg/1.5 mL) pen 4 Each 2 Sig: Inject 0.25 mg subcutaneously one time a week. Authorizing Provider: Ilya ABRAHAM PA-C * Telephone Encounter - Edyta Covarrubias LPN - 07/27/2022 11:34 AM EDT Patient has been identified by name and date of : Yes, Provider Dr. Bhagat Date 07/27/22 Time 11:35 am Patient phones for refill(s): Requested Prescriptions Pending Prescriptions Disp Refills semaglutide (OZEMPIC) 0.25 mg or 0.5 mg(2 mg/1.5 mL) pen 3 mL 2 Sig: Inject 0.25 mg subcutaneously one time a week. Date of last office visit in 06/08/22 next apt 08/03/22 primary care: 11:36 pm Last 2 Encounter Wt Readings: Date: Wt: 06/08/2022 113.9 kg (251 lb) 05/09/2022 122 kg (269 lb) Previous labs/tests for medication: Not applicable Thank you. Edyta Covarrubias LPN documented in this encounterTrinity [facility]05-23-2023 History of Present illness Narrative* Iftikhar Lindsay APRN.[employer]TEGRITY ENGINEER - 06/27/2022 4:05 PM EDT Telemedicine Visit - Digital Health Virtual Visit Note Patient seen on [employer] [facility] Online platform. Location of patient: [place] Ariana Bhagat MD History of Present Illness Don Rodas is a 31 year old year old female who presents for the past 2 day(s) with symptoms of no bm in 2 days, lower abdominal cramping that comes and goes, and intermittent nausea that arestable Symptoms include:Negative for Emesis, Diarrhea - Number and description: , Blood in Stool, Abdominal Pain, Fever , Chills/Sweats, Headache, Irritability, Dizziness, Fatigue, Lethargy, Urinary Symptoms, Arthralgias, Myalgias, Cough, and SOB / Wheezing No history of gastrointestinal disease. No known risk factors for parasitic or bacterial infection. Oral intake: adequate Sick contacts: no Recent travel: no Recent Antibiotic use: no Recent Hospitalization: no Number and description of stool: NA OTC meds/remedies that patient has tried: one dose of miralax yesterday in the morning Had same symptoms before and was told her gallbladder caused her constipation. She still has her gallbladder. States she typically has daily bms. No diet change. Able to eat and drink without difficulty. + flatus. No excessive belching or flatus. PAST MEDICAL HISTORY Diagnosis Date Allergy 09/11/2013 Asthma 09/27/2012 Excessive daytime sleepiness 08/16/2016 Fibrocystic breast disease in female 09/11/2013 Hyperlipidemia LDL goal <130 07/31/2014 Morbid obesity (HCC) Rosacea 09/27/2012 Vitamin D deficiency 08/04/2014 PAST SURGICAL HISTORY Procedure Laterality Date COLONOSCOPY SCREENING 11/28/2021 focal 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 EGD W/O BRSH SPEC VARICIES INJ 11/28/2021 Normal REMOVE TONSILS/ADENOIDS,12+ Y/O TONSILLECTOMY HX FAMILY HISTORY Problem Relation Age of Onset Asthma Mother Hyperlipidemia Mother Osteoporosis Mother Diabetes Father Psoriasis Father Arthritis Father Diabetes Maternal Grandmother Heart Maternal Grandmother tachycardia Hypertension Maternal Grandmother None Maternal Grandfather Asthma Paternal Grandmother Stroke Paternal Grandmother Colon Cancer Maternal Uncle Social History Tobacco Use Smoking status: Never Smokeless tobacco: Never Vaping Use Vaping Use: Never used Substance Use Topics Alcohol use: No Drug use: No Current Outpatient Medications Medication Sig senna (SENNA LAX) 8.6 mg tab Take 1 tablet by mouth twice daily for 3 days. EPINEPHrine (EPIPEN) 0.3 mg/0.3 mL auto-injector 0.3 ml subcutaneous as needed for severe allergic reaction/may substitute. fluticasone-vilanterol (BREO ELLIPTA) 200-25 mcg/dose inhaler Inhale 1 Inhalation as instructed once daily. Inhale one puff once daily. DO NOT CLICK OPEN UNTIL READY FOR DOSE semaglutide (OZEMPIC) 0.25 mg or 0.5 mg(2 mg/1.5 mL) pen Inject 0.25 mg subcutaneously one time a week. clotrimazole-betamethasone (LOTRISONE) cream Apply 1 application to affected area twice daily. multivitamin tablet Take 1 tablet by mouth once daily. pedi multivit no.205/fluoride (OSIVR-PPK-MKDV ORAL) Take by mouth. (Patient not taking: Reported on05/09/2022) ascorbic acid (RANDA-C ORAL) Take 2,000 mg by mouth once daily. ergocalciferol 50,000 unit capsule (VITAMIN D2, DRISDOL) Take 1 capsule by mouth one time a week. albuterol HFA (VENTOLIN HFA) 90 mcg/actuation inhaler Inhale 2 Puffs as instructed every 4 hours asneeded for wheezing/shortness of breath. atorvastatin (LIPITOR) 20 mg tablet Take 1 tablet by mouth daily at bedtime. For cholesterol. albuterol (PROVENTIL) 2.5 mg /3 mL (0.083 %) nebulizer solution Use 3 mL via nebulizer every 6 hours as needed for wheezing/shortness of breath. Use over 5-15minutes. Nebulizer 1 Each once daily. NEBULIZER FOR HOME USE. DX: asthma J 45.909 No current facility-administered medications for this visit. ALLERGIES Allergen Reactions Keflex [Cephalexin] Rash Latex Rash Shellfish Derived Anaphylaxis Video Exam (Examination performed via Video enabled technology) General appearance: Alert, oriented, pleasant, in NAD :Yes Ill appearing :No Lethargic appearing :No Hydration: Appears Hydrated Oropharynx:Mucus membranes appears moist Skin: Turgor <3 seconds Respiratory distress :No Abdomen inspection: unable to distinguish for distention due to habitus.mild tenderness with deep palpation ASSESSMENT Acute constipation (primary encounter diagnosis) PLAN: Rx: senna- advised every 12 hours until bm produced - Increase fluids - Choose healthy dietary fiber through daily intake of whole grains, fruit, vegetables, nuts - Increase daily activity - Recheck prn persistence, worsening, appearance of new symptoms. If continues for 2-3 days, recommend in person evaluation with PCP or UC - Red flags discussed for need for in person care - All questions answered Iftikhar Lindsay APRN.CNP If you let us know who your primary care provider is, we will send them a notification of today's visit through our electronic medical records system. Since not all providers have access to our notifications, we strongly encourage you to share the following record of today's visit with your primarycare provider at your next visit. This will help in providing you the best care. If you do not have an established Primary Care physician and would like to continue care with a [facility] Virtual Primary Care physician, please ask your provider to place a Establish PrimaryCare order. Use K[employer]EN to manage your care, wherever you are, 28/08, on your mobile device or computer. K[employer]EN connects you to [employer] Display System so you can access all your health information in one place and also schedule and request virtual appointments with primary care providers. documented in this encounterTrinity [facility]05-04-2023 History of Present illness Narrative* Ariana Bhagat MD - 06/08/2022 8:06 AM EDT Patient presents with: Follow Up: 1 month follow up ozempic HPI: Patient presents today for office visit for follow up. Follow up starting ozempic today. Reports that is tolerating well. Is losing weight. Has lost a significant amount of weight. Is counting calories. Feeling well. She is very pleased. Discussed risks and benefits of meds. Asking to have thyroid today. Mother with history of thyroid nodules. Levels were checked in Feb but this prior to starting ozempic. No history of thyroid cancer just nodules. Discussed that there isno worries at this point. No chest pain or shortness of breath. Had mild dyspepsia. Was eating pickles. MEDICATIONS: Current Outpatient Medications Medication Sig semaglutide (OZEMPIC) 0.25 mg or 0.5 mg(2 mg/1.5 mL) pen Inject 0.25 mg subcutaneously one time a week. clotrimazole-betamethasone (LOTRISONE) cream Apply 1 application to affected area twice daily. multivitamin tablet Take 1 tablet by mouth once daily. ascorbic acid (RANDA-C ORAL) Take 2,000 mg by mouth once daily. ergocalciferol 50,000 unit capsule (VITAMIN D2, DRISDOL) Take 1 capsule by mouth one time a week. fluticasone-vilanterol (BREO ELLIPTA) 200-25 mcg/dose inhaler Inhale 1 Inhalation as instructed once daily. Inhale one puff once daily. DO NOT CLICK OPEN UNTIL READY FOR DOSE albuterol HFA (VENTOLIN HFA) 90 mcg/actuation inhaler Inhale 2 Puffs as instructed every 4 hours asneeded for wheezing/shortness of breath. atorvastatin (LIPITOR) 20 mg tablet Take 1 tablet by mouth daily at bedtime. For cholesterol. albuterol (PROVENTIL) 2.5 mg /3 mL (0.083 %) nebulizer solution Use 3 mL via nebulizer every 6 hours as needed for wheezing/shortness of breath. Use over 5-15minutes. EPINEPHrine (EPIPEN) 0.3 mg/0.3 mL auto-injector 0.3 ml subcutaneous as needed for severe allergic reaction/may substitute. pedi multivit no.205/fluoride (AVCOW-AKS-PYNU ORAL) Take by mouth. (Patient not taking: Reported on05/09/2022) Nebulizer 1 Each once daily. NEBULIZER FOR HOME USE. DX: asthma J 45.909 No current facility-administered medications for this visit. ALLERGIES: ALLERGIES Allergen Reactions Keflex [Cephalexin] Rash Latex Rash Shellfish Derived Anaphylaxis PAST MEDICAL HISTORY Diagnosis Date Allergy 09/11/2013 Asthma 09/27/2012 Excessive daytime sleepiness 08/16/2016 Fibrocystic breast disease in female 09/11/2013 Hyperlipidemia LDL goal <130 07/31/2014 Morbid obesity (HCC) Rosacea 09/27/2012 Vitamin D deficiency 08/04/2014 PAST SURGICAL HISTORY Procedure Laterality Date COLONOSCOPY SCREENING 11/28/2021 focal 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 EGD W/O BRSH SPEC VARICIES INJ 11/28/2021 Normal REMOVE TONSILS/ADENOIDS,12+ Y/O TONSILLECTOMY HX FAMILY HISTORY Problem Relation Age of Onset Asthma Mother Hyperlipidemia Mother Osteoporosis Mother Diabetes Father Psoriasis Father Arthritis Father Diabetes Maternal Grandmother Heart Maternal Grandmother tachycardia Hypertension Maternal Grandmother None Maternal Grandfather Asthma Paternal Grandmother Stroke Paternal Grandmother Colon Cancer Maternal Uncle Social History Tobacco Use Smoking status: Never Smokeless tobacco: Never Vaping Use Vaping Use: Never used Substance Use Topics Alcohol use: No Drug use: No Reviewed current medications, allergies, past medical history, surgical history, family history andsocial history today. REVIEW OF SYSTEMS Did have some pain near her triceps on the right. No swelling or deformity All other reviewed and negative other than HPI. VITALS: BP 102/64 Pulse 80 Wt 113.9 kg (251 lb) LMP 12/23/2021 (Approximate) SpO2 98% BMI 45.91 kg/m Last 4 Encounter Wt Readings: Date: Wt: 05/09/2022 122 kg (269 lb) 01/19/2022 114.8 kg (253 lb) 09/20/2021 112 kg (247 lb) 09/05/2021 112 kg (247 lb) PHYSICAL EXAMINATION: General appearance: Well appearing, alert, in no acute distress, well-hydrated, well nourished. Skin: Skin color, texture, turgor normal, no suspicious rashes or lesions Head: Normocephalic, no masses, lesions, tenderness or abnormalities Lungs: Lungs clear to auscultation. No wheezing, rhonchi, rales Heart: RRR without murmur, gallop, or rubs. No ectopy Abdomen: Normal abdominal exam, Abdomen soft, non-tender. Bowel sounds normal. No masses, organomegaly Arm: exam benign. Red flags for re-assessment reviewed with patient in detail. Appears to have beenmusculoskeletal. ASSESSMENT/PLAN: 1. Shellfish allergy - ICD9: V15.04, ICD10: Z91.013 (primary diagnosis) - refilled epi pen - EPINEPHRINE 0.3 MG/0.3 ML INJECTION, AUTO-INJECTOR 2. Class 3 severe obesity with body mass index (BMI) of 45.0 to 49.9 in adult, unspecified obesity type, unspecified whether serious comorbidity present (HCC) - ICD9: 278.01, V85.42, ICD10: E66.01, Z68.42 - elects to continue med for one more month and wants to come back. Call if any issues. Ariana Bhagat RTO in one month and prn. documented in this encounterTrinity [facility]04-13-2023 Miscellaneous Notes* Telephone Encounter - Renetta Garcia - 05/18/2022 4:24 PM EDT Spoke with patient and she verbalized understanding. Renetta Garcia * Telephone Encounter - Ariana Bhagat MD - 05/18/2022 4:19 PM EDT Weight loss and side sleeping will help. * Telephone Encounter - Sanna Reeves RN - 05/18/2022 3:17 PM EDT Pt called and is notified of providers results and instructions. Pt voices understanding, but states she does not want to do an in lab sleep test to confirm. She states she is afraid of the Covid risk and the people doing the study not wearing masks. She is asking if there is anything else she could do. Please call and advise. Sanna Reeves RN * Telephone Encounter - Ariana Bhagat MD - 05/18/2022 3:00 PM EDT Her sleep study was inconclusive. Ask her if willing to do an in lab test to confirm. documented in this encounterTrinity [facility]04-10-2023 History of Present illness Narrative* Ja Tobin - 05/15/2022 1:07 PM EDT Sleep Study Check-In Documentation Date: May 15, 2022 Name: Don Mehta Rodas Comments: HST was returned in working order with all sleep questionnaires Ja Tobin * Ja Tobin - 05/11/2022 10:25 AM EDT Nomad# [id number] , date shipped out 05/11/22 Tracking mailout: [id number] Tracking return: [id number] * Adeel Mullins III, PhD - 04/21/2022 1:51 PM EDT April 21, 2022 Standing PSG Orders signed in the last 90 days None Future PSG Orders signed in the last 90 days Ordered Auth. provider HOME SLEEP APNEA TEST (HSAT) [[id number]] 04/18/22 Misty Willams APRN.[employer] INTEGRITY ENGINEER Assoc. diagnoses: Obesity, Class III, BMI 40-49.9 (morbid obesity) (HCC) [E66.01], Fatigue, unspecified type [R53.83] Q: Indications: A: Obstructive sleep apnea Q: STOP-BANG conditions - Select All That Apply: A: BMI > 35 kg/m2 A2: SNORING that is loud or disruptive A3: TIREDNESS, fatigue or sleepiness during the day Q: Current use of supplemental oxygen during sleep period?: A: No All Prior Sleep Studies (past 365 days) Some values may be hidden. Unless noted otherwise, only the newest values recorded on each date aredisplayed. Sleep Studies HOME SLEEP APNEA TEST (HSAT) Future Expected: Expires: 04/18/23 BMI Readings from Last 2 Encounters: 01/19/22 : 46.27 kg/m 09/20/21 : 45.18 kg/m PAST MEDICAL HISTORY Diagnosis Date Allergy 09/11/2013 Asthma 09/27/2012 Excessive daytime sleepiness 08/16/2016 Fibrocystic breast disease in female 09/11/2013 Hyperlipidemia LDL goal <130 07/31/2014 Morbid obesity (HCC) Rosacea 09/27/2012 Vitamin D deficiency 08/04/2014 The medical record was reviewed to determine if the proposed sleep study conforms to the [facility] Practice Parameters for the Indications for Polysomnography and Related Procedures, or if the sleep studyis indicated for other reasons. Indications for study: LILLIANA suspected with comorbid medical or sleep disorders: Morbid obesity (BMI>40 kg/m2) Sleep study to be performed: Home Sleep Apnea Test (HSAT) Special instructions: None-follow laboratory protocol [facility] Staff Note: I have read the above protocol, edited as needed, and agree to the plan. Adeel Mullins III, PhD 4:49 PM, 04/21/2022 * Linda Canseco - 04/19/2022 10:18 AM EDT April 19, 2022 An order has been received for Home Sleep Apnea Test (HSAT) from jonathan Ruffin. [facility] Staff. Visit prep complete. Comments :No The sleep study is scheduled for 05/12. Insurance: Payor: ANTHEM / Plan: [email or web address] ACCESS PPO / Product Type: PPO / Payer/Plan Subscr Sex Relation Sub. Ins. ID Effective Group Num 1. ANTHEM - BLUE* DON RODAS* 1990 Female Self [id number] 09/12/20 [id number] Linda Canseco documented in this encounterTrinity Health [facility]04-08-2023 Miscellaneous Notes* Telephone Encounter - Ariana Bhagat MD - 05/13/2022 10:09 AM EDT Agree. I have already explained to her at length that none of these classes of meds will be coveredby her insurance and are totally self pay. * Telephone Encounter - Aristeo Lambert LPN - 05/13/2022 10:03 AM EDT Pt called office requesting rx for Trulicity. She states pharmacy told her to contact providers office to switch ozempic rx to Trulicity because it is a preferred alternative. Advised pt that we havetried to prior auth Trulicity, Ozempic, Mounjaro and Orilistat in the past and all of these medications have been denied by insurance for weight loss. These medications are only approved for DM. Pt was even in advised in last office visit with PCP that she will be given an rx for Ozempic, but she will have to pay out of pocket d/t insurance will not cover. Pt states she will call the pharmacy back. Aristeo Lambert LPN documented in this encounterTrinity [facility]04-06-2023 Miscellaneous Notes* Telephone Encounter - Kiersten Sandra RN - 05/11/2022 4:37 PM EDT Spoke with patient. Given message from provider's office. Patient verbalizes understanding. Kiersten Sandra RN * Telephone Encounter - Sanna Reeves RN - 05/11/2022 3:59 PM EDT Called and left a voicemail for the Patient to call back and ask for a nurse to receive the providers message. Sanna Reeves RN * Telephone Encounter - Ariana Bhagat MD - 05/11/2022 3:49 PM EDT That is what the oral antibiotic is for and is better. * Telephone Encounter - Bel Anderson RN - 05/11/2022 3:38 PM EDT Patient returned call and states she would like to have an antibiotic ear medication (ear drops) ordered if possible. Uses [facility]. Thank you. * Telephone Encounter - Raven Luevano LPN - 05/11/2022 2:51 PM EDT Left message to call office and speak with nurse. * Telephone Encounter - Ariana Bhagat MD - 05/11/2022 1:59 PM EDT May still very well be viral. If that is the case, there is no treatment other than rest. If now getting drainage from the ear, we can add an antibiotic but ear needs rechecked in one week or sooner if worsens. * Telephone Encounter - Kiersten Sandra RN - 05/11/2022 1:39 PM EDT Patient calling to say she was seen in office for right ear pain on 05/09. She says the ear pain isworse, radiates down to her jaw and she thinks she has a little bit of drainage from her ear. No bloody drainage. No other new symptoms. Kiersten Sandra RN documented in this encounterTrinity Health [facility]04-04-2023 Miscellaneous Notes* Telephone Encounter - Lucia Ayala RN - 05/09/2022 4:45 PM EDT Patient request for medication is as follows: Requested Prescriptions Pending Prescriptions Disp Refills clotrimazole-betamethasone (LOTRISONE) cream 15 g 0 Sig: Apply 1 application to affected area twice daily. Last annual exam: 01/19/22 Please approve the above prescription(s) to electronically send to pharmacy. Lucia Ayala RN documented in this encounterTrinity Health [facility]04-04-2023 Miscellaneous Notes* Telephone Encounter - Sadie Juarez LPN - 05/09/2022 4:15 PM EDT Pt notified of results and provider message. Sadie Juarez LPN * Telephone Encounter - Rosa Rose MA - 05/09/2022 3:41 PM EDT Unable to reach patient. Left VM to return call to office. Please read below and advise. Rosa Rose MA * Telephone Encounter - Ariana Bhagat MD - 05/09/2022 3:32 PM EDT Let her know her ultrasound was ok. documented in this encounterTrinity Health [facility]04-04-2023 History of Present illness Narrative* Ariana Bhagat MD - 05/09/2022 1:09 PM EDT Patient presents with: Ear Pain HPI: Patient presents today for office visit accompanied with mother for right ear pain. On going for two days. Pain is intermittent. Refers to the pain feeling like pressure. No drainage from ear. Denies fever. States she's had some nasal congestion with it. No cough or chest congestion. No fever.Did do a covid test at home. Mom concerned about B/L ankle swelling X 1 wk. Denied chest pain or shortness of breath. Hx of asthma. Pos for pitting edema. Ankles are more swollen than usual Does eat a salty diet per Her Mother. Does spend most of her days with her legs in dependent position. No hx of dvt No paroxymal nocturnal dyspnea. Wants to retry ozempic. She is aware it will not be covered but is willing to pay out of pocket forit. Discussed calorie restriction. MEDICATIONS: Current Outpatient Medications Medication Sig orlistat (XENICAL) 120 mg capsule Take 1 capsule by mouth three times daily with meals. clotrimazole-betamethasone (LOTRISONE) cream Apply 1 application to affected area twice daily. EPINEPHrine (EPIPEN) 0.3 mg/0.3 mL auto-injector 0.3 ml subcutaneous as needed for severe allergic reaction/may substitute. multivitamin tablet Take 1 tablet by mouth once daily. pedi multivit no.205/fluoride (DKUSA-CKH-SWCK ORAL) Take by mouth. ascorbic acid (RANDA-C ORAL) Take 2,000 mg by mouth once daily. ergocalciferol 50,000 unit capsule (VITAMIN D2, DRISDOL) Take 1 capsule by mouth one time a week. fluticasone-vilanterol (BREO ELLIPTA) 200-25 mcg/dose inhaler Inhale 1 Inhalation as instructed once daily. Inhale one puff once daily. DO NOT CLICK OPEN UNTIL READY FOR DOSE albuterol HFA (VENTOLIN HFA) 90 mcg/actuation inhaler Inhale 2 Puffs as instructed every 4 hours asneeded for wheezing/shortness of breath. atorvastatin (LIPITOR) 20 mg tablet Take 1 tablet by mouth daily at bedtime. For cholesterol. albuterol (PROVENTIL) 2.5 mg /3 mL (0.083 %) nebulizer solution Use 3 mL via nebulizer every 6 hours as needed for wheezing/shortness of breath. Use over 5-15minutes. Nebulizer 1 Each once daily. NEBULIZER FOR HOME USE. DX: asthma J 45.909 No current facility-administered medications for this visit. ALLERGIES: ALLERGIES Allergen Reactions Keflex [Cephalexin] Rash Latex Rash Shellfish Derived Anaphylaxis PAST MEDICAL HISTORY Diagnosis Date Allergy 09/11/2013 Asthma 09/27/2012 Excessive daytime sleepiness 08/16/2016 Fibrocystic breast disease in female 09/11/2013 Hyperlipidemia LDL goal <130 07/31/2014 Morbid obesity (HCC) Rosacea 09/27/2012 Vitamin D deficiency 08/04/2014 PAST SURGICAL HISTORY Procedure Laterality Date COLONOSCOPY SCREENING 11/28/2021 focal 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 EGD W/O BRSH SPEC VARICIES INJ 11/28/2021 Normal REMOVE TONSILS/ADENOIDS,12+ Y/O TONSILLECTOMY HX FAMILY HISTORY Problem Relation Age of Onset Asthma Mother Hyperlipidemia Mother Osteoporosis Mother Diabetes Father Psoriasis Father Arthritis Father Diabetes Maternal Grandmother Heart Maternal Grandmother tachycardia Hypertension Maternal Grandmother None Maternal Grandfather Asthma Paternal Grandmother Stroke Paternal Grandmother Colon Cancer Maternal Uncle Social History Tobacco Use Smoking status: Never Smokeless tobacco: Never Vaping Use Vaping Use: Never used Substance Use Topics Alcohol use: No Drug use: No Reviewed current medications, allergies, past medical history, surgical history, family history andsocial history today. REVIEW OF SYSTEMS All other reviewed and negative other than HPI. VITALS: BP 102/72 Pulse 94 Ht 157.5 cm (5' 2) Wt 122 kg (269 lb) LMP 12/23/2021 (Approximate) SpO2 98% BMI 49.20 kg/m Last 4 Encounter Wt Readings: Date: Wt: 01/19/2022 114.8 kg (253 lb) 09/20/2021 112 kg (247 lb) 09/05/2021 112 kg (247 lb) 03/10/2019 110.2 kg (243 lb) PHYSICAL EXAMINATION: General appearance: Well appearing, alert, in no acute distress, well-hydrated, well nourished. Skin: Skin color, texture, turgor normal, no suspicious rashes or lesions Head: Normocephalic, no masses, lesions, tenderness or abnormalities TMs clear. Lungs: Lungs clear to auscultation. No wheezing, rhonchi, rales Heart: RRR without murmur, gallop, or rubs. No ectopy Abdomen: Normal abdominal exam, Abdomen soft, non-tender. Bowel sounds normal. No masses, organomegaly Extremities: No deformities, , skin discoloration, clubbing or cyanosis. Good capillary refill. Oneplus edema. No redness or warmth. Musculoskeletal: No joint swelling, deformity, or tenderness Peripheral pulses: Normal ASSESSMENT/PLAN: 1. Right ear pain - ICD9: 388.70, ICD10: H92.01 (primary diagnosis) - use mucinex prn. 2. Obesity, Class III, BMI 40-49.9 (morbid obesity) (HCC) - ICD9: 278.01, ICD10: E66.01 - Discussed risks and benefits of new medication with the patient. Advised them to call if any sideeffects or questions. - aware it WILL NOT be covered by insurance. Would not do a prior auth. Return to office in [facility]. - OZEMPIC 0.25 MG OR 0.5 MG (2 MG/1.5 ML) SUBCUTANEOUS PEN INJECTOR 3. Edema, unspecified type - ICD9: 782.3, ICD10: R60.9 - elevate legs. Suspect it is dependent edema. Wear support stocking. Do stat duplex. - COMP METABOLIC PANEL - CBC + DIFF Ariana Bhagat MD documented in this encounterTrinity Health [facility]04-03-2023 History of Present illness Narrative* Jenny Malik APRN.PIPELINE INTEGRITY ENGINEER - 05/08/2022 6:40 PM EDT Seen on [employer] [facility] Located in [place] C/o ear pain, right. D/t limitations online, referred for in person evaluation to r/o AOM.To be seen by PCP and/or walk in clinic. Pt agreeable to plan and denies further questions and/or concerns. Visit cancelled. Jenny Malik APRN.CNP documented in this encounterTrinity Health [facility]03-16-2023 Miscellaneous Notes* Telephone Encounter - Ana Dixon LPN - 04/20/2022 9:53 AM EDT Patient read [employer] message: Last read by Don Rodas at 9:42 AM on 04/20/2022. Ana Dixon LPN * Telephone Encounter - Ana Dixon LPN - 04/20/2022 9:10 AM EDT I left a VM asking that patient contact the office to schedule. [employer] message also sent. Ana Dixon LPN * Telephone Encounter - Bel Gotti Pss - 04/20/2022 8:53 AM EDT Called patient to schedule CBC and Iron studies with Office visit to Dr Lopez and patient is declining to schedule as she states a nurse told her 3-4 days ago this appointment is not needed. Explained to patient I was calling from Dr Lopez to arrange this appointment and she still declined to schedule * Telephone Encounter - Misty Willams APRN.CNP - 04/18/2022 11:57 AM EDT Can please let patient know that upon looking at her chart after her visit, it looks like Dr. Morrisiwanted her to follow-up in 12 weeks, but it doesn't look like this was done. Please schedule follow-up. documented in this encounterTrinity Health [facility]03-14-2023 History of Present illness Narrative* Misty Willams APRN.CNP - 04/18/2022 8:42 AM EDT Chief Complaint Patient presents with: Telemedicine Patient was offered a virtual/telemedicine appointment in lieu of an office visit due to recommendations to reduce patient exposure to COVID-19. Video was used for evaluation of this patient. Patient is aware of limitations of performing the visit without a face to face visit in the office setting and agrees. Patient agrees to the visit: Yes Patient Location: [facility] Don Rodas is a 31 year old female who is contacted today for a virtual visit This is an established patient of Dr. Ariana Bhagat MD Reports: wants to follow-up on labs. Recent labs reviewed with patient. Hx of being iron deficient. Discussed that most recent blood count was normal. She had seen hematology previously. Was evaluated by SEM MANAGER and had EGD colonoscopy. Did not have follow-up with hematology. + Fatigue Reports that she sleeps well. Does snore. Has never had a sleep study. Father has sleep apnea. Interested in weight loss. She prepares her own food and reports that she eats healthy. She reports that she has seen nutrition in the past. Insurance will not cover trulicity or mounjaro. She eats 1-2 times daily. She reports that she exercises daily for 30-45 minutes on the treadmill at a rate of 3. She does not get winded with exercise. She is specifically asking about an NG tube as she has heard that people lose weight with this. Past medical history, appointments, medications, allergies reviewed 04/18/2022 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 EGD W/O BRSH SPEC VARICIES INJ 11/28/2021 Normal REMOVE TONSILS/ADENOIDS,12+ Y/O TONSILLECTOMY HX Family History FAMILY HISTORY Problem Relation Age of Onset Asthma Mother Hyperlipidemia Mother Osteoporosis Mother Diabetes Father Psoriasis Father Arthritis Father Diabetes Maternal Grandmother Heart Maternal Grandmother tachycardia Hypertension Maternal Grandmother None Maternal Grandfather Asthma Paternal Grandmother Stroke Paternal Grandmother Colon Cancer Maternal Uncle Patient Allergies ALLERGIES Allergen Reactions Keflex [Cephalexin] Rash Latex Rash Shellfish Derived Anaphylaxis Current Medications Current Outpatient Medications on File Prior to Visit Medication Sig tirzepatide (MOUNJARO) 2.5 mg/0.5 mL pen injector Inject 2.5 mg subcutaneously one time a week. clotrimazole-betamethasone (LOTRISONE) cream Apply 1 application to affected area twice daily. EPINEPHrine (EPIPEN) 0.3 mg/0.3 mL auto-injector 0.3 ml subcutaneous as needed for severe allergic reaction/may substitute. multivitamin tablet Take 1 tablet by mouth once daily. pedi multivit no.205/fluoride ([id number] ORAL) Take by mouth. ascorbic acid (RANDA-C ORAL) Take 2,000 mg by mouth once daily. ergocalciferol 50,000 unit capsule (VITAMIN D2, DRISDOL) Take 1 capsule by mouth one time a week. fluticasone-vilanterol (BREO ELLIPTA) 200-25 mcg/dose inhaler Inhale 1 Inhalation as instructed once daily. Inhale one puff once daily. DO NOT CLICK OPEN UNTIL READY FOR DOSE albuterol HFA (VENTOLIN HFA) 90 mcg/actuation inhaler Inhale 2 Puffs as instructed every 4 hours asneeded for wheezing/shortness of breath. atorvastatin (LIPITOR) 20 mg tablet Take 1 tablet by mouth daily at bedtime. For cholesterol. albuterol (PROVENTIL) 2.5 mg /3 mL (0.083 %) nebulizer solution Use 3 mL via nebulizer every 6 hours as needed for wheezing/shortness of breath. Use over 5-15minutes. Nebulizer 1 Each once daily. NEBULIZER FOR HOME USE. DX: asthma J 45.909 No current facility-administered medications on file prior to visit. Social History Social History Tobacco Use Smoking status: Never Smokeless tobacco: Never Vaping Use Vaping Use: Never used Substance Use Topics Alcohol use: No Drug use: No EXAM: LMP 12/23/2021 (Approximate) Limited exam as visit was completed over the virtual platform. Virtual visit completed using video, limited exam completed. Patient sounds or appears ill: No General Appearance: Well appearing, alert, in no acute distress, well-hydrated, well nourished. Skin: Skin color normal Head: Normocephalic. No facial swelling or redness. EENT: Eyes nonreddened. No discharge. External ears nonreddened and no swelling. Neck: No mass or lesions. No swelling. FROM Patient is unable to speak in complete sentences: No Patient has labored breathing: No. Patient is audibly coughing: No Psych: Attitude - cooperative, easily engaged in conversation Affect - Euthymic, normal mood Mental status: Alert. Speech is clear and fluent with good repetition, comprehension Appearance - Normal hygiene and grooming appropriate Coordination: No abnormal or extraneous movements. Gait/Stance: Posture is normal. Health Maintenance List HEPATITIS B(1 of 3 - 3-dose series) Never done SPIROMETRY Never done HEPATITIS C SCREENING Never done HIV SCREENING Never done PNEUMOCOCCAL(2 - PCV) due on 11/25/2016 DEPRESSION ASSESSMENT Never done ANNUAL PCP TEAM CHRONIC DISEASE VISIT due on 03/20/2023 PAP TESTING due on 01/19/2027 HPV TESTING due on 01/19/2027 DTAP,TDAP,TD(3 - Td or Tdap) due on 08/07/2028 INFLUENZA Completed COVID-19 VACCINE Completed Data reviewed Last 5 Encounter BP Readings: Date: BP: 01/19/2022 122/64 11/28/2021 128/65 09/20/2021 109/64 09/05/2021 106/72 10/22/2018 120/84 BMI Readings from Last 5 Encounters: 01/19/22 : 46.27 kg/m 09/20/21 : 45.18 kg/m 09/05/21 : 45.18 kg/m 03/10/19 : 44.45 kg/m 12/02/18 : 44.59 kg/m Last 5 Encounter Wt Readings: Date: Wt: 01/19/2022 114.8 kg (253 lb) 09/20/2021 112 kg (247 lb) 09/05/2021 112 kg (247 lb) 03/10/2019 110.2 kg (243 lb) 12/02/2018 110.6 kg (243 lb 12.8 oz) Medication and allergy list reviewed, reconciled and updated 04/18/2022 ASSESSMENT/PLAN: 1. Fatigue, unspecified type - ICD9: 780.79, ICD10: R53.83 (primary diagnosis) Agreeable to a home sleep test. - HOME SLEEP APNEA TEST (HSAT) 2. Obesity, Class III, BMI 40-49.9 (morbid obesity) (HCC) - ICD9: 278.01, ICD10: E66.01 She is interested in weight loss medications or a balloon in her stomach to help. - [facility] - HOME SLEEP APNEA TEST (HSAT) Discussed with patient re: logging foods and increasing the intensity of her work-outs. 3. Thrombocytosis - ICD9: 238.71, ICD10: D75.839 Does not look like she had the follow-up with hematology (recommended to f/u in 12 weeks). Discussed treatment plan and patient voices understanding. Patient's questions answered appropriately. Medications and potential side effects were discussed and patient voices understanding. Return to the office as scheduled or as needed for worsening/no improvement. Misty Willams APRN.MARIO documented in this encounterTr[facility]03-13-2023 Miscellaneous Notes* Telephone Encounter - Misty Willams APRN.CNP - 04/17/2022 12:14 PM EDT noted * Telephone Encounter - Ruba Valenzuela MA - 04/17/2022 11:30 AM EDT Pt appointment is to discuss lab results from patient's request for type 1 DM per 04/12/22 [employer] message. Patient has been encouraged for in person visit in March and again from Dr. hBagat on 04/12/22 to discuss her nausea, increased urination, increased appetite, irritability/mood changes, and weakness complaints. Spoke with patient regarding above. Pt reports that she is unable to come into office d/t no transportation, afraid of covid with weight and asthma, does not want to wear a mask. Pt declined rescheduling to another day that transportation would be available to her. Pt reports that she is worried of lab results being marked as abnormal - again, encouraged pt to come in for office visit to discuss in further detail, patient declined. Ruba Valenzuela MA * Telephone Encounter - Ceci Webb LPN - 04/17/2022 11:06 AM EDT Patient returned call and went over notes below and patient said it is her day off and her mother works, so she can not come in for appt. Patient said she wanted to go over lab results, iron deficiency. * Telephone Encounter - Ruba Valenzuela MA - 04/17/2022 8:44 AM EDT Pt scheduled for video visit with Misty on 04/18/22 - pt would best be suited for in person visit. LM for patient to call office to change to in person visit. Ruba Valenzuela MA documented in this encounterTr[facility]03-13-2023 Miscellaneous Notes* Telephone Encounter - Ruba Valenzuela MA - 04/17/2022 11:34 AM EDT Spoke with Client Services, HGB A1C added. Ruba Valenzuela MA * Telephone Encounter - Ariana Bhagat MD - 04/17/2022 8:39 AM EDT Are we able to add a hba1c to these labs. documented in this encounterTrinity [facility]03-08-2023 Miscellaneous Notes* Telephone Encounter - Aristeo Lambert LPN - 04/12/2022 3:57 PM EST Last CMP 08/19/21- glucose was 82. No A1c. Pt has upcoming appt with ORIGINATION SPECIALIST on 04/18. (FYI- Pt has been trying to get Mounjaro and Trulicity for weight loss but has been getting denied d/t she does not have a DM dx.) Aristeo Lambert LPN documented in this encounterTrinity Health [facility]02-21-2023 Miscellaneous Notes* Telephone Encounter - Dixie Kraus Ma - 03/28/2022 11:24 AM EST PA denied not covered for weight loss. Patient was notified We reviewed the information you provided in support of a request to obtain Mounjaro 2.5 mg/0.5 PEN INJCTR under your patient s plan. We are unable to approve this request for the following reason(s): ? Coverage is provided for type 2 diabetes mellitus. Coverage cannot be authorized at this time. We based this decision on the prior authorization criteria for: 12310 Diabetes - Mounjaro Prior Authorization Policy RY[employer] Standard Dixie Kraus Ma * Telephone Encounter - Dixie Kraus Ma - 03/23/2022 12:31 PM EST Prior Authorization has been completed online at [email or web address] for mounjaro, will await response. [id number] Please keep encounter open until final decision has been received and documented from insurance company. Dixie Kraus MA documented in this encounterTrinity [facility]02-13-2023 Miscellaneous Notes* Telephone Encounter - Colleen Singh MA - 03/20/2022 10:20 AM EST Prescription was filed today. May need PA. Colleen Singh MA documented in this encounterTrinity Health [facility]02-13-2023 History of Present illness Narrative* Misty Willams APRN.PIPELINE INTEGRITY ENGINEER - 03/20/2022 9:37 AM EST Chief Complaint Patient presents with: Telemedicine Patient was offered a virtual/telemedicine appointment in lieu of an office visit due to recommendations to reduce patient exposure to COVID-19. Video was used for evaluation of this patient. Patient is aware of limitations of performing the visit without a face to face visit in the office setting and agrees. Patient agrees to the visit: Yes Patient Location: [facility] Don Rodas is a 31 year old female who is contacted today for a virtual visit This is an established patient of Dr. Ariana Bhagat MD Patient was scheduled for virtual visit today. Patient was able to connect, however her audio and video were not working. Converted to a phone visit. Reports: that she would like an order for mounjaro. Has heard that this can help lose weight. She was previously prescribed trulicity; however, reports not covered by her insurance. Discussed with patient that if trulicity was not covered, that the mounjaro likely would not be covered, as well. She reports that she has been having more back pain. Also reports that she was in the ER for abdominal pain Discussed with patient that she would need an in-office follow-up visit so that we can assess abdominal and back pain. Past medical history, appointments, medications, allergies reviewed 03/20/2022 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 EGD W/O BRSH SPEC VARICIES INJ 11/28/2021 Normal REMOVE TONSILS/ADENOIDS,12+ Y/O TONSILLECTOMY HX Family History FAMILY HISTORY Problem Relation Age of Onset Asthma Mother Hyperlipidemia Mother Osteoporosis Mother Diabetes Father Psoriasis Father Arthritis Father Diabetes Maternal Grandmother Heart Maternal Grandmother tachycardia Hypertension Maternal Grandmother None Maternal Grandfather Asthma Paternal Grandmother Stroke Paternal Grandmother Colon Cancer Maternal Uncle Patient Allergies ALLERGIES Allergen Reactions Keflex [Cephalexin] Rash Latex Rash Shellfish Derived Anaphylaxis Current Medications Current Outpatient Medications on File Prior to Visit Medication Sig clotrimazole-betamethasone (LOTRISONE) cream Apply 1 application to affected area twice daily. dulaglutide (TRULICITY) 0.75 mg/0.5 mL pen injector Inject 0.75 mg subcutaneously one time a week. Inject dose once per week. Discard Pen After EPINEPHrine (EPIPEN) 0.3 mg/0.3 mL auto-injector 0.3 ml subcutaneous as needed for severe allergic reaction/may substitute. multivitamin tablet Take 1 tablet by mouth once daily. pedi multivit no.205/fluoride ([id number] ORAL) Take by mouth. ascorbic acid (RANDA-C ORAL) Take 2,000 mg by mouth once daily. ergocalciferol 50,000 unit capsule (VITAMIN D2, DRISDOL) Take 1 capsule by mouth one time a week. fluticasone-vilanterol (BREO ELLIPTA) 200-25 mcg/dose inhaler Inhale 1 Inhalation as instructed once daily. Inhale one puff once daily. DO NOT CLICK OPEN UNTIL READY FOR DOSE albuterol HFA (VENTOLIN HFA) 90 mcg/actuation inhaler Inhale 2 Puffs as instructed every 4 hours asneeded for wheezing/shortness of breath. atorvastatin (LIPITOR) 20 mg tablet Take 1 tablet by mouth daily at bedtime. For cholesterol. albuterol (PROVENTIL) 2.5 mg /3 mL (0.083 %) nebulizer solution Use 3 mL via nebulizer every 6 hours as needed for wheezing/shortness of breath. Use over 5-15minutes. Nebulizer 1 Each once daily. NEBULIZER FOR HOME USE. DX: asthma J 45.909 No current facility-administered medications on file prior to visit. Social History Social History Tobacco Use Smoking status: Never Smokeless tobacco: Never Vaping Use Vaping Use: Never used Substance Use Topics Alcohol use: No Drug use: No EXAM: LMP 12/23/2021 (Approximate) Limited exam as visit was completed over the phone platform. Patient sounds or appears ill: No Patient is unable to speak in complete sentences: No Patient has labored breathing: No. Patient is audibly coughing: No Psych: Attitude - cooperative, easily engaged in conversation Health Maintenance List HEPATITIS B(1 of 3 - 3-dose series) Never done SPIROMETRY Never done HEPATITIS C SCREENING Never done HIV SCREENING Never done PNEUMOCOCCAL(2 - PCV) due on 11/25/2016 DEPRESSION ASSESSMENT Never done ANNUAL PCP TEAM CHRONIC DISEASE VISIT due on 12/20/2022 PAP TESTING due on 01/19/2027 HPV TESTING due on 01/19/2027 DTAP,TDAP,TD(3 - Td or Tdap) due on 08/07/2028 INFLUENZA Completed COVID-19 VACCINE Completed Data reviewed Last 5 Encounter BP Readings: Date: BP: 01/19/2022 122/64 11/28/2021 128/65 09/20/2021 109/64 09/05/2021 106/72 10/22/2018 120/84 BMI Readings from Last 5 Encounters: 01/19/22 : 46.27 kg/m 09/20/21 : 45.18 kg/m 09/05/21 : 45.18 kg/m 03/10/19 : 44.45 kg/m 12/02/18 : 44.59 kg/m Last 5 Encounter Wt Readings: Date: Wt: 01/19/2022 114.8 kg (253 lb) 09/20/2021 112 kg (247 lb) 09/05/2021 112 kg (247 lb) 03/10/2019 110.2 kg (243 lb) 12/02/2018 110.6 kg (243 lb 12.8 oz) Medication and allergy list reviewed, reconciled and updated 03/20/2022 ASSESSMENT/PLAN: 1. Obesity, Class III, BMI 40-49.9 (morbid obesity) (HCC) - ICD9: 278.01, ICD10: E66.01 - TIRZEPATIDE 2.5 MG/0.5 ML SUBCUTANEOUS PEN INJECTOR Discussed with patient that if Trulicity was not covered, likely Mounjaro is not can be covered either. Discussed that we could send her to bariatric/endocrine for further evaluation management If Mounjaro is not covered, could also consider getting semaglutide via mail order/compounding pharmacy if she is willing to pay [id number]. She is encouraged to schedule follow-up in office visit for her abdominal pain and her back pain. Discussed treatment plan and patient voices understanding. Patient's questions answered appropriately. Medications and potential side effects were discussed and patient voices understanding. Return to the office as scheduled or as needed for worsening/no improvement. Total appointment time on phone with patient = 11-20 minutes documented in this encounterTrinity [facility]12-15-2022 History of Present illness Narrative* Claudia Solis MD - 01/19/2022 9:18 AM EST Don is a 31 year old who presents for an annual gynecologic exam without complaints. ? Noticed right breast lump yesterday in shower. Was on trulicity for weight loss but can't afford it lost about 6lbs. Was gaining weight without changes in diet/exercise habits. Menses: cycles every 28 days and 7 days of flow. Heavy flow changes pads every 2 hrs. Contraception: none HPV vaccine: No Last Pap: 01/28/2016 normal HPV: N/A History of abnormal pap: No Last mammogram: never Sexually active: never History of STDS: None Exercise: walking on treadmill Diet: improving OB History T0 L0 SAB0 IAB0 Ectopic0 Multiple0 Live Births0 Community Engagement Specialist History LMP: 12/23/2021 (Approximate), Having periods Age at Menarche: Age at First : Age at Menopause: Community Engagement Specialist History Comments: Sexual Activity: Not Currently; No partner data on record Contraception: No contraception data on record PAST MEDICAL HISTORY Diagnosis Date Allergy 09/11/2013 Asthma 09/27/2012 Excessive daytime sleepiness 08/16/2016 Fibrocystic breast disease in female 09/11/2013 Hyperlipidemia LDL goal <130 07/31/2014 Morbid obesity (HCC) Rosacea 09/27/2012 Vitamin D deficiency 08/04/2014 PAST SURGICAL HISTORY Procedure Laterality Date COLONOSCOPY SCREENING 11/28/2021 focal 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 EGD W/O BRSH SPEC VARICIES INJ 11/28/2021 Normal REMOVE TONSILS/ADENOIDS,12+ Y/O TONSILLECTOMY HX FAMILY HISTORY Problem Relation Age of Onset Asthma Mother Hyperlipidemia Mother Osteoporosis Mother Diabetes Father Psoriasis Father Arthritis Father Diabetes Maternal Grandmother Heart Maternal Grandmother tachycardia Hypertension Maternal Grandmother None Maternal Grandfather Asthma Paternal Grandmother Stroke Paternal Grandmother Colon Cancer Maternal Uncle SOCIAL HISTORY Social History Tobacco Use Smoking status: Never Smokeless tobacco: Never Vaping Use Vaping Use: Never used Substance Use Topics Alcohol use: No Drug use: No REVIEW OF SYSTEMS Abdomen: No abdominal pain, nausea, vomiting, diarrhea, or constipation. No bloating, early satiety, indigestion, or increased flatulence. Bladder: No dysuria, gross hematuria, urinary frequency, urinary urgency, or incontinence. Breast: No nipple d/c, overlying skin changes, redness or skin retraction. Has rash in armpits- stinging sensation Allergies and current medication updated:Yes EXAM: BP 122/64 Ht 5' 2 (1.58m) Wt 253 lb (114.8kg) LMP 12/23/2021 BMI 46.26 kg/(m^2). GENERAL: pleasant, female in no apparent distress HEENT: Normocephalic, atraumatic, mucus membranes moist, and no lesions NECK: Supple, full range of motion, no adenopathy, and thyroid normal DERMATOLOGY: Normal, without lesions, non-icteric, and non-hirsute BREAST: soft, non-tender, symmetric, no dominant mass, normal nipple-areolar complex, no lymphadenopathy, no nipple discharge, and bilateral axillary with erythematous rash likely c/w yeast dermatitis ABDOMEN: soft, non-tender, and no masses PELVIC: external genitalia normal, normal Bartholin's glands, urethra, Nazareth's glands, no vulvar lesions, good vaginal support, physiologic discharge present, normal appearing perineal body and perianal region, unable to see cervix - blind pap done BIMANUAL: uterus normal size, shape and consistency, no adnexal masses, and non-tender RECTOVAGINAL: deferred. NEURO: alert and oriented x3,exam grossly non-focal EXTREMITIES: normal ASSESSMENT/PLAN: 1) Health maintenance: Pap done with HPV. Mammogram starting age 40. No masses appreciated today- advised to continue to do monthly SBE- return if concerns Nutrition, exercise and routine health maintenance exams reviewed. Calcium/Vitamin D supplementation information provided. 2) Contraception: none. Contraceptive options reviewed and information provided. 3) STD screening: Declined STD check. 4) Follow up one year or sooner as needed 5) declines Hormones or other mgmt for menses- reports heavy and painful menses 6) would like to shey castro to discuss weight mgmt in more detail Claudia Vuong MD * Dalila Flowers Ma - 01/19/2022 8:52 AM EST Sfdc Technical Architect offered: Patient declines. documented in this encounterTrinity [facility]11-18-2022 Miscellaneous Notes* Telephone Encounter - Lucila Grier APRN.CNP - 12/23/2021 12:59 PM EST Noted - I have explained to patient multiple times as to why this was ordered. No further work-up at this time - per patient's decision Lucila Grier APRN.CNP * Telephone Encounter - Ron Jerome MA - 12/23/2021 11:17 AM EST Spoke with patient and told her that CT needs to be done due to negative stool testing. Explained that the CT is a back up to the stool testing to check for inflammation. Patient refusing to get CT done since she already cancelled appointment to have it done. * Telephone Encounter - Lucila Grier APRN.CNP - 12/23/2021 10:15 AM EST Please call patient - stool study is negative. However, but she is anemic and I recommend CT enterography to look for inflammation that could be the cause of the anemia. Thanks Lucila Grier APRN.CNP * Telephone Encounter - Nasreen Sauceda - 12/22/2021 11:56 AM EST Patient states her stool test was negative and was told she may or may not need a CT scan. Please call patient for follow up instructions. Thank you. documented in this encounterTrinity Health [facility]11-16-2022 Miscellaneous Notes* Telephone Encounter - LISA Isabel - 12/21/2021 4:20 PM EST Patient has been identified by name and date of : Yes Patient phones for refill(s): Requested Prescriptions Pending Prescriptions Disp Refills EPINEPHrine (EPIPEN) 0.3 mg/0.3 mL auto-injector 2 Each 3 Si.3 ml subcutaneous as needed for severe allergic reaction/may substitute. Date of last office visit in primary care: BRONSON (JERRY) 12/20/21 with No appointment scheduled Last 2 Encounter Wt Readings: Date: Wt: 09/20/2021 112 kg (247 lb) 09/05/2021 112 kg (247 lb) Please advise. Thank you. LISA Isabel documented in this encounterTrinity Health [facility]11-15-2022 History of Present illness Narrative* Misty Willams APRN.PIPELINE INTEGRITY ENGINEER - 12/20/2021 8:09 AM EST Chief Complaint Patient presents with: Telemedicine Patient was offered a virtual/telemedicine appointment in lieu of an office visit due to recommendations to reduce patient exposure to COVID-19. Video was used for evaluation of this patient. Patient is aware of limitations of performing the visit without a face to face visit in the office setting and agrees. Patient agrees to the visit: Yes Patient Location: [facility] Don Rodas is a 31 year old female who is contacted today for a virtual visit This is an established patient of Dr. Ariana Bhagat MD Reports: Pt presents today virtually with several concerns. Took her first trulicity injection. Feels like she had a low sugar afterwards. Checked her glucose and it was in the 80s. She had some temporary itching for 2-3 minutes at the injection site after the injection. (No rash). Concerned about the cost of the medication. Refers that she found a voucher for the the fist month, but after that, it will not be covered. Past medical history, appointments, medications, allergies reviewed 12/20/2021 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 EGD W/O BRSH SPEC VARICIES INJ 11/28/2021 Normal REMOVE TONSILS/ADENOIDS,12+ Y/O TONSILLECTOMY HX Family History FAMILY HISTORY Problem Relation Age of Onset Asthma Mother Hyperlipidemia Mother Osteoporosis Mother Diabetes Father Psoriasis Father Arthritis Father Diabetes Maternal Grandmother Heart Maternal Grandmother tachycardia Hypertension Maternal Grandmother None Maternal Grandfather Asthma Paternal Grandmother Stroke Paternal Grandmother Colon Cancer Maternal Uncle Patient Allergies ALLERGIES Allergen Reactions Keflex [Cephalexin] Rash Latex Rash Shellfish Derived Anaphylaxis Current Medications Current Outpatient Medications on File Prior to Visit Medication Sig omeprazole (PRILOSEC) 20 mg capsule Take 1 capsule by mouth once daily. multivitamin tablet Take 1 tablet by mouth once daily. dulaglutide (TRULICITY) 0.75 mg/0.5 mL pen injector Inject 0.75 mg subcutaneously one time a week. Inject dose once per week. Discard Pen After pedi multivit no.205/fluoride ([id number] ORAL) Take by mouth. ascorbic acid (RANDA-C ORAL) Take 2,000 mg by mouth once daily. ergocalciferol 50,000 unit capsule (VITAMIN D2, DRISDOL) Take 1 capsule by mouth one time a week. fluticasone-vilanterol (BREO ELLIPTA) 200-25 mcg/dose inhaler Inhale 1 Inhalation as instructed once daily. Inhale one puff once daily. DO NOT CLICK OPEN UNTIL READY FOR DOSE albuterol HFA (VENTOLIN HFA) 90 mcg/actuation inhaler Inhale 2 Puffs as instructed every 4 hours asneeded for wheezing/shortness of breath. atorvastatin (LIPITOR) 20 mg tablet Take 1 tablet by mouth daily at bedtime. For cholesterol. EPINEPHrine (EPIPEN) 0.3 mg/0.3 mL auto-injector 0.3 ml subcutaneous as needed for severe allergic reaction/may substitute. albuterol (PROVENTIL) 2.5 mg /3 mL (0.083 %) nebulizer solution Use 3 mL via nebulizer every 6 hours as needed for wheezing/shortness of breath. Use over 5-15minutes. Nebulizer 1 Each once daily. NEBULIZER FOR HOME USE. DX: asthma J 45.909 No current facility-administered medications on file prior to visit. Social History Social History Tobacco Use Smoking status: Never Smokeless tobacco: Never Substance Use Topics Alcohol use: No Drug use: No EXAM: LMP 11/30/2017 (Approximate) Limited exam as visit was completed over the virtual platform. Virtual visit completed using video, limited exam completed. Patient sounds or appears ill: No General Appearance: Well appearing, alert, in no acute distress, well-hydrated, well nourished. Skin: Skin color normal Head: Normocephalic. No facial swelling or redness. EENT: Eyes nonreddened. No discharge. External ears nonreddened and no swelling. Neck: No mass or lesions. No swelling. FROM Patient is unable to speak in complete sentences: No Patient has labored breathing: No. Patient is audibly coughing: No Psych: Attitude - cooperative, easily engaged in conversation Affect - Euthymic, normal mood Mental status: Alert. Speech is clear and fluent with good repetition, comprehension Appearance - Normal hygiene and grooming appropriate Coordination: No abnormal or extraneous movements. Gait/Stance: Posture is normal. Health Maintenance List HEPATITIS B(1 of 3 - 3-dose series) Never done SPIROMETRY Never done HEPATITIS C SCREENING Never done HIV SCREENING Never done PNEUMOCOCCAL(2 - PCV) due on 11/25/2016 HPV TESTING Never done PAP TESTING due on 01/20/2021 DEPRESSION ASSESSMENT Never done ANNUAL PCP TEAM CHRONIC DISEASE VISIT due on 09/05/2022 DTAP,TDAP,TD(3 - Td or Tdap) due on 08/07/2028 INFLUENZA Completed COVID-19 VACCINE Completed Data reviewed Last 5 Encounter BP Readings: Date: BP: 11/28/2021 128/65 09/20/2021 109/64 09/05/2021 106/72 10/22/2018 120/84 12/29/2017 104/60 BMI Readings from Last 5 Encounters: 09/20/21 : 45.18 kg/m 09/05/21 : 45.18 kg/m 03/10/19 : 44.45 kg/m 12/02/18 : 44.59 kg/m 10/22/18 : 43.90 kg/m Last 5 Encounter Wt Readings: Date: Wt: 09/20/2021 112 kg (247 lb) 09/05/2021 112 kg (247 lb) 03/10/2019 110.2 kg (243 lb) 12/02/2018 110.6 kg (243 lb 12.8 oz) 10/22/2018 108.9 kg (240 lb) Medication and allergy list reviewed, reconciled and updated 12/20/2021 ASSESSMENT/PLAN: 1. Obesity, Class III, BMI 40-49.9 (morbid obesity) (HCC) - ICD9: 278.01, ICD10: E66.01 Pt is interested in continuing GLP 1. She has only used one trulicity injection. Encouraged to continue to monitor for side effects. Discussed eating regularly, although small portions to maintain blood sugar. Discussed possible using a compounding pharmacy, which patient is interested in. Will try to get additional information. Discussed treatment plan and patient voices understanding. Patient's questions answered appropriately. Medications and potential side effects were discussed and patient voices understanding. Return to the office as scheduled or as needed for worsening/no improvement. Misty Willams APRN.CNP documented in this encounterTr[facility]22 History of Present illness Narrative* Lucila Grier APRN.CNP - 12/06/2021 8:27 AM EDT VIRTUAL VISIT FOLLOW UP I had a virtual visit with Ms. Rodas today for follow up of EGD and colonoscopy . (Patient's mother is also listening on virtual appointment today Impression: - Non-bleeding internal hemorrhoids. - The examined portion of the ileum was normal. Biopsied. - The examination was otherwise normal. Impression: - Z-line regular, 38 cm from the incisors. No specimens collected. - Normal stomach. Biopsied. - Normal examined duodenum. Biopsied. FINAL DIAGNOSIS A. Duodenum, biopsy: - Small bowel mucosa with no diagnostic alteration. - No evidence of celiac sprue. B. Stomach, biopsy: - Antral and fundic mucosa with mild chronic inactive gastritis. - See comment. C. Terminal ileum, biopsy: - Focal active ileitis. - Negative for dysplasia or granulomas. UPDATED HISTORY: Patient is being seen today via virtual visit. Patient also requested to call mother to listen in on the visit today. Patient is being seen today anemia follow up. Patient had a EGD and colonoscopy - EGD inactive gastritis - taking omeprazole - colonoscopy findings of ileitis- Discussed with patient will need to further evlauate with calprotectin and CT enterography. Based on the results will talk about treatment Patient reports today no upper symptoms or lower Gi symptoms. Patient denies loose stools, blood in stools black stools, abdominal pain. Patient denies a family history of IBD. PAtient reports the week before the colonoscopy she was taking ibuprofen 400mg once daily for sciatic pain PAST MEDICAL HISTORY Diagnosis Date Allergy 09/11/2013 Asthma 09/27/2012 Excessive daytime sleepiness 08/16/2016 Fibrocystic breast disease in female 09/11/2013 Hyperlipidemia LDL goal <130 07/31/2014 Morbid obesity (HCC) Rosacea 09/27/2012 Vitamin D deficiency 08/04/2014 PAST SURGICAL HISTORY Procedure Laterality Date COLONOSCOPY SCREENING 11/28/2021 focal 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 EGD W/O BRSH SPEC VARICIES INJ 11/28/2021 Normal REMOVE TONSILS/ADENOIDS,12+ Y/O TONSILLECTOMY HX FAMILY HISTORY Problem Relation Age of Onset Asthma Mother Hyperlipidemia Mother Osteoporosis Mother Diabetes Father Psoriasis Father Arthritis Father Diabetes Maternal Grandmother Heart Maternal Grandmother tachycardia Hypertension Maternal Grandmother None Maternal Grandfather Asthma Paternal Grandmother Stroke Paternal Grandmother Colon Cancer Maternal Uncle Social History Tobacco Use Smoking status: Never Smokeless tobacco: Never Substance Use Topics Alcohol use: No Drug use: No Current Outpatient Medications Medication Sig Dispense Refill iv contrast (will be provided with radiology test) CT Enterography W Inject, intravenously, once for 1 dose.No IV access, insert saline lock prior to the beginning of sedation, infusion, injection ofimaging exam. Discontinue saline lock post exam. If Pt. has a central line or IVAD, may access for administration according to line specific nursing protocol. Once exam is complete flush line and de-access according to line specific nursing protocol in the CT contrast administration guidelines link. 1 Each 0 enteric contrast (will be provided with radiology test) For CT ENTEROGRAPHY W IVCON order Administer, As Directed One Time Only, via Oral, Rectal, both Oral and Rectal, Enteric Tube, Stoma or Indwelling Catheter, Enteric Contrast as designated per enteric contrast guidelines. 1 Each 0 omeprazole (PRILOSEC) 20 mg capsule Take 1 capsule by mouth once daily. 30 capsule 1 multivitamin tablet Take 1 tablet by mouth once daily. dulaglutide (TRULICITY) 0.75 mg/0.5 mL pen injector Inject 0.75 mg subcutaneously one time a week. Inject dose once per week. Discard Pen After 4 Each 3 pedi multivit no.205/fluoride ([id number] ORAL) Take by mouth. ascorbic acid (RANDA-C ORAL) Take 2,000 mg by mouth once daily. ergocalciferol 50,000 unit capsule (VITAMIN D2, DRISDOL) Take 1 capsule by mouth one time a week. 12 capsule 3 fluticasone-vilanterol (BREO ELLIPTA) 200-25 mcg/dose inhaler Inhale 1 Inhalation as instructed once daily. Inhale one puff once daily. DO NOT CLICK OPEN UNTIL READY FOR DOSE 60 Each 11 albuterol HFA (VENTOLIN HFA) 90 mcg/actuation inhaler Inhale 2 Puffs as instructed every 4 hours asneeded for wheezing/shortness of breath. 3 Inhaler 3 atorvastatin (LIPITOR) 20 mg tablet Take 1 tablet by mouth daily at bedtime. For cholesterol. 30 tablet 11 EPINEPHrine (EPIPEN) 0.3 mg/0.3 mL auto-injector 0.3 ml subcutaneous as needed for severe allergic reaction/may substitute. 2 Each 3 albuterol (PROVENTIL) 2.5 mg /3 mL (0.083 %) nebulizer solution Use 3 mL via nebulizer every 6 hours as needed for wheezing/shortness of breath. Use over 5- 15minutes. 20 mL 6 Nebulizer 1 Each once daily. NEBULIZER FOR HOME USE. DX: asthma J 45.372 1 Device 0 No current facility-administered medications for this visit. ALLERGIES Allergen Reactions Keflex [Cephalexin] Rash Latex Rash Shellfish Derived Anaphylaxis PHYSICAL FINDINGS OF NOTE: General - Normal, healthy, cooperative, in no acute distress Able to interact verbally by video conference Psych - ORIENTATION: normal to time place, person and situation Mood/Affect: AFFECT AND MOOD: Normal Head/Neuro - Normal size and shape Facial appearance normal Pulmonary - respiratory effort normal Abdominal - Not performed Skin - abnormal lesions not visualized Motor - patient seen sitting with Normal appearing strength and coordination IMPRESSION (K50.019) Terminal ileitis with complication (HCC) (primary encounter diagnosis) Assessment/Plan (K50.019) Terminal ileitis with complication (HCC) (primary encounter diagnosis) 1. Terminal ileitis with complication (HCC) Patient is being seen today anemia follow up. Patient had a EGD and colonoscopy - EGD inactive gastritis - taking omeprazole - colonoscopy findings of ileitis- Discussed with patient will need to further evlauate with calprotectin and CT enterography. Based on the results will talk about treatment - - CALPROTECTIN,FECAL - CT ENTEROGRAPHY W IVCON; Future - iv contrast (will be provided with radiology test); CT Enterography W Inject, intravenously, oncefor 1 dose.No IV access, insert saline lock prior to the beginning of sedation, infusion, injectionof imaging exam. Discontinue saline lock post exam. If Pt. has a central line or IVAD, may access for administration according to line specific nursing protocol. Once exam is complete flush line and de-access according to line specific nursing protocol in the CT contrast administration guidelines link. Dispense: 1 Each; Refill: 0 - enteric contrast (will be provided with radiology test); For CT ENTEROGRAPHY W IVCON order Administer, As Directed One Time Only, via Oral, Rectal, both Oral and Rectal, Enteric Tube, Stoma or Indwelling Catheter, Enteric Contrast as designated per enteric contrast guidelines. Dispense: 1 Each; Refill: 0 Follow up in office 3 months/PRN. Recommended to please call office/go to ER if fever, chills, chest pain, SOB, diarrhea, nausea, emesis, worsening abdominal pain, dehydration occurs I spent a total of 30 minutes on the date of the service which included preparing to see the patient, [id number] patient care, completing clinical documentation, obtaining and/or reviewing separately obtained history, performing a medically appropriate examination, counseling and educating the pat ient/family/caregiver, ordering medications, tests, or procedures, communicating with other HCPs (not separately reported), independently interpreting results (not separately reported), communicatingresults to the patient/family/caregiver, and care coordination (not separately reported). Lucila Grier APRN.MARIO December 07, 2021 2:07 PM documented in this encounterTr[facility]10-24-2022 Nurse Note* Eufemia Pickering RN - 11/28/2021 9:03 AM EDT Passed gas rectally. No complaints. Sitting up having snack. Mother at bedside. Eufemia Pickering RN * Eufemia Pickering RN - 11/28/2021 8:41 AM EDT Pt received in PACU. Pt very drowsy, but arouses slightly. Appears comfortable. Abd soft and appears non distended. Difficult due to body habitus. Eufemia Pickering RN documented in this encounterTr[facility]10-24-2022 History and physical note * John Maharaj MD - 11/28/2021 8:15 AM EDT CHIEF COMPLAINT: No chief complaint on file. This consult was requested by Ariana Bhagat MD for an opinion regarding anemia. My final recommendations will be communicated to the requesting health care provider by way of the shared medical record for internal providers or letter via the [employer] for external providers. Don Rodas is a 31 year old female allergy, asthma, fibrocystic breast disease, hyperlipidemia, obesity, rosacea, vitamin D deficiency. Who presents for anemia. Patient reports family historyof maternal uncle HPI: Over the past years patient has had a mild increase in her platelets. Patient here today to r/o iron deficiency from the GI standpoint. Patient has generalized fatigued. Reports of heavy menses Patient reports abdominal pain at times if she eats to much. She reports spicy food will cause abdominal pain like a burning sensation. She reports feeling full fast and most of the times eating onceduring the day. Patient reports a lot of bloating. She reports a of belching and gas. She reports of nausea at times random times. 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 The patient denies change in bowel habits, denies black stools. Now she is taking iron and this hasdarken stools denies rectal bleeding or abdominal pain. Having a bowel movement daily usually everymorning and at times in the afternoon. Denies Record Review: [facility] / Outside records reviewed. Component Latest Ref Rng & Units 08/19/2021 09/05/2021 09/20/2021 WBC 3.70 - 11.00 k/uL 10.48 10.96 RBC 3.90 - 5.20 m/uL 4.93 4.89 Hemoglobin 11.5 - 15.5 g/dL 13.6 13.5 Hematocrit 36.0 - 46.0 % 42.6 41.0 MCV 80.0 - 100.0 fL 86.4 83.8 MCH 26.0 - 34.0 pg 27.6 27.6 MCHC 30.5 - 36.0 g/dL 31.9 32.9 RDW-CV 11.5 - 15.0 % 12.9 13.2 Platelet Count 150 - 400 k/uL 509 (H) 482 (H) 496 (H) MPV 9.0 - 12.7 fL 10.3 9.4 Neut% % 63.1 62.5 Abs Neut (ANC) 1.45 - 7.50 k/uL 6.62 6.84 Lymph% % 24.1 23.8 Abs Lymph 1.00 - 4.00 k/uL 2.53 2.61 Wood% % 6.9 6.8 Abs Wood <0.87 k/uL 0.72 0.75 Eosin% % 4.9 6.0 Abs Eosin <0.46 k/uL 0.51 (H) 0.66 (H) Baso% % 0.6 0.5 Abs Baso <0.11 k/uL 0.06 0.06 Immature Gran % % 0.4 0.4 IMMATURE GRANS (ABS) <0.10 k/uL 0.04 0.04 NRBC /100 WBC 0.0 0.0 Absolute nRBC <0.01 k/uL <0.01 <0.01 DTYPE Auto Auto Cholesterol, Total <200 mg/dL 165 Triglyceride <150 mg/dL 113 HDL Cholesterol >39 mg/dL 44 Non HDL Cholesterol <130 mg/dL 121 Fasting Time hrs 12 VLDL Cholesterol <30 mg/dL 23 TC:HDL Ratio <5.10 3.75 LDL Cholesterol <100 mg/dL 98 LDL:HDL Ratio <2.54 2.23 Albumin 3.9 - 4.9 g/dL 4.3 Bilirubin, Total 0.2 - 1.3 mg/dL 0.4 Bilirubin, Conjug <0.2 mg/dL <0.2 Alkaline Phosphatase 34 - 123 U/L 64 AST 13 - 35 U/L 20 ALT 7 - 38 U/L 9 Protein, Total 6.3 - 8.0 g/dL 7.4 Iron 41 - 186 ug/dL 46 TIBC 232 - 386 ug/dL 309 Transferrin Saturation 15.0 - 57.0 % 14.9 (L) Vitamin D 25 Hydroxy 31.0 - 80.0 ng/mL 56.1 WSR 0 - 20 mm/hr 17 CRP <0.9 mg/dL <0.3 Ferritin 14.7 - 205.1 ng/mL 57.5 PAST MEDICAL HISTORY PAST MEDICAL HISTORY Diagnosis Date Allergy 09/11/2013 Asthma 09/27/2012 Excessive daytime sleepiness 08/16/2016 Fibrocystic breast disease in female 09/11/2013 Hyperlipidemia LDL goal <130 07/31/2014 Morbid obesity (HCC) Rosacea 09/27/2012 Vitamin D deficiency 08/04/2014 PAST SURGICAL HISTORY PAST SURGICAL HISTORY Procedure Laterality Date REMOVE TONSILS/ADENOIDS,12+ Y/O Allergies: ALLERGIES ALLERGIES Allergen Reactions Keflex [Cephalexin] Rash Latex Rash Shellfish Derived Anaphylaxis Medications: CURRENT MEDICATIONS omeprazole (PRILOSEC) 20 mg capsule Take 1 capsule by mouth once daily. multivitamin tablet Take 1 tablet by mouth once daily. dulaglutide (TRULICITY) 0.75 mg/0.5 mL pen injector Inject 0.75 mg subcutaneously one time a week. Inject dose once per week. Discard Pen After pedi multivit no.205/fluoride ([id number] ORAL) Take by mouth. ascorbic acid (RANDA-C ORAL) Take 2,000 mg by mouth once daily. ergocalciferol 50,000 unit capsule (VITAMIN D2, DRISDOL) Take 1 capsule by mouth one time a week. fluticasone-vilanterol (BREO ELLIPTA) 200-25 mcg/dose inhaler Inhale 1 Inhalation as instructed once daily. Inhale one puff once daily. DO NOT CLICK OPEN UNTIL READY FOR DOSE albuterol HFA (VENTOLIN HFA) 90 mcg/actuation inhaler Inhale 2 Puffs as instructed every 4 hours asneeded for wheezing/shortness of breath. atorvastatin (LIPITOR) 20 mg tablet Take 1 tablet by mouth daily at bedtime. For cholesterol. EPINEPHrine (EPIPEN) 0.3 mg/0.3 mL auto-injector 0.3 ml subcutaneous as needed for severe allergic reaction/may substitute. albuterol (PROVENTIL) 2.5 mg /3 mL (0.083 %) nebulizer solution Use 3 mL via nebulizer every 6 hours as needed for wheezing/shortness of breath. Use over 5-15minutes. Nebulizer 1 Each once daily. NEBULIZER FOR HOME USE. DX: asthma J 45.909 FAMILY HISTORY FAMILY HISTORY Problem Relation Age of Onset Asthma Mother Hyperlipidemia Mother Osteoporosis Mother Diabetes Father Psoriasis Father Arthritis Father Diabetes Maternal Grandmother Heart Maternal Grandmother tachycardia Hypertension Maternal Grandmother None Maternal Grandfather Asthma Paternal Grandmother Stroke Paternal Grandmother Colon Cancer Maternal Uncle OCCUPATION & MARITAL STATUS Employer And Job Title: [employer]) Years Of Education Completed: 12 years Marital Status: Single SOCIAL HISTORY Social History Tobacco Use Smoking status: Never Smokeless tobacco: Never Substance Use Topics Alcohol use: No Drug use: No Review of Systems: Review of Systems Are you taking any blood thinners? No Physical Examination: [facility] 11/30/2017 No vitals or PE since telemedicine Alert and pleasant, No apparent distress. Easy respirations. Able to speak in complete sentences. Good judgement. Appropriate answers. PLAN: Assessment/Plan (D75.839) Thrombocytosis (primary encounter diagnosis) (E61.1) Iron deficiency (D50.9) Iron deficiency anemia, unspecified iron deficiency anemia type 1. Thrombocytosis - EGD DIAGNOSTIC; Future - COLONOSCOPY DIAGNOSTIC; Future - H PYLORI IGG AB; Future - CELIAC SCREEN WITH REFLEX; Future 2. Iron deficiency - EGD DIAGNOSTIC; Future - COLONOSCOPY DIAGNOSTIC; Future - H PYLORI IGG AB; Future - CELIAC SCREEN WITH REFLEX; Future 3. Iron deficiency anemia, unspecified iron deficiency anemia type - EGD DIAGNOSTIC; Future - COLONOSCOPY DIAGNOSTIC; Future - CONSULT TO GENERAL SURGERY - H PYLORI IGG AB; Future - CELIAC SCREEN WITH REFLEX; Future Follow up in office 3 months/PRN. Recommended to please call office/go to ER if fever, chills, chest pain, SOB, diarrhea, nausea, emesis, worsening abdominal pain, dehydration occurs I spent a total of 30 minutes on the date of the service which included preparing to see the patient, [id number] patient care, completing clinical documentation, obtaining and/or reviewing separately obtained history, performing a medically appropriate examination, counseling and educating the pat ient/family/caregiver, ordering medications, tests, or procedures, communicating with other HCPs (not separately reported), independently interpreting results (not separately reported), communicatingresults to the patient/family/caregiver, and care coordination (not separately reported). Lucila Grier APRN.PIPELINE INTEGRITY ENGINEER UPDATED HISTORY AND PHYSICAL EXAMINATION SERVICE DATE: 11/28/2021 SERVICE TIME: 8:07 AM PHYSICAL EXAM MUST BE COMPLETED ON ADMISSION The History and Physical (completed in the past 30 days) has been reviewed and the patient has beenexamined. The contents accurately reflect the patient's condition with the following additions or revisions since the H&P was completed. Examination indicates no changes. This H&P can be found in the attached. SIGNATURE: John Maharaj III, MD PATIENT NAME: Don Rodas DATE: November 28, 2021 TIME: 8:07 AM documented in this encounterTr[facility]10-10-2022 Miscellaneous Notes* Telephone Encounter - Renetta Garcia - 11/14/2021 2:27 PM EDT My chart message sent. Renetta Garcia * Telephone Encounter - Aristeo Lambert LPN - 11/08/2021 11:46 AM EDT Left message to return call to office. Aristeo Lambert LPN * Telephone Encounter - Raven Luevano LPN - 11/03/2021 11:30 AM EDT Left message for patient to call office. * Telephone Encounter - Ariana Bhagat MD - 11/03/2021 10:26 AM EDT Insurance does not typically cover weight loss meds unfortunately. * Telephone Encounter - Irene Florentino LPN - 11/03/2021 9:38 AM EDT Patient called back asking since insurance will not cover Trulicity is there something else to try to help her loose weight? documented in this encounterTr[facility]09-12-2022 Miscellaneous Notes* Telephone Encounter - Cory Salas Ma - 10/17/2021 12:52 PM EDT TC to patient - spoke with her mother. States that patient is working and she will have her call back. Mother states that patient does not take trulicity. * Telephone Encounter - Ariana Bhagat MD - 10/17/2021 12:30 PM EDT This was just refilled for four months at last ov last month. ? Why need. * Telephone Encounter - Aristeo Lambert LPN - 10/17/2021 11:09 AM EDT Patient phones requesting refills as follows: Requested Prescriptions Pending Prescriptions Disp Refills TRULICITY 0.75 mg/0.5 mL pen injector [Pharmacy Med Name: TRULICITY 0.75 MG/0.5 ML PEN] 3 Sig: INJECT 0.75 MG SUBCUTANEOUSLY ONE TIME A WEEK. INJECT DOSE ONCE PER WEEK. DISCARD PEN AFTER BRONSON 8/1/22 NOV no upcoming appt Please review and advise. Aristeo Lambert LPN documented in this encounterTrinity [facility]09-09-2022 History of Present illness Narrative* Lucila Grier APRN.PIPELINE INTEGRITY ENGINEER - 10/14/2021 8:30 AM EDT CHIEF COMPLAINT: No chief complaint on file. This consult was requested by Ariana Bhagat MD for an opinion regarding anemia. My final recommendations will be communicated to the requesting health care provider by way of the shared medical record for internal providers or letter via the [employer] for external providers. Don Rodas is a 31 year old female allergy, asthma, fibrocystic breast disease, hyperlipidemia, obesity, rosacea, vitamin D deficiency. Who presents for anemia. Patient reports family historyof maternal uncle HPI: Over the past years patient has had a mild increase in her platelets. Patient here today to r/o iron deficiency from the GI standpoint. Patient has generalized fatigued. Reports of heavy menses Patient reports abdominal pain at times if she eats to much. She reports spicy food will cause abdominal pain like a burning sensation. She reports feeling full fast and most of the times eating onceduring the day. Patient reports a lot of bloating. She reports a of belching and gas. She reports of nausea at times random times. 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 The patient denies change in bowel habits, denies black stools. Now she is taking iron and this hasdarken stools denies rectal bleeding or abdominal pain. Having a bowel movement daily usually everymorning and at times in the afternoon. Denies Record Review: [facility] / Outside records reviewed. Component Latest Ref Rng & Units 08/19/2021 09/05/2021 09/20/2021 WBC 3.70 - 11.00 k/uL 10.48 10.96 RBC 3.90 - 5.20 m/uL 4.93 4.89 Hemoglobin 11.5 - 15.5 g/dL 13.6 13.5 Hematocrit 36.0 - 46.0 % 42.6 41.0 MCV 80.0 - 100.0 fL 86.4 83.8 MCH 26.0 - 34.0 pg 27.6 27.6 MCHC 30.5 - 36.0 g/dL 31.9 32.9 RDW-CV 11.5 - 15.0 % 12.9 13.2 Platelet Count 150 - 400 k/uL 509 (H) 482 (H) 496 (H) MPV 9.0 - 12.7 fL 10.3 9.4 Neut% % 63.1 62.5 Abs Neut (ANC) 1.45 - 7.50 k/uL 6.62 6.84 Lymph% % 24.1 23.8 Abs Lymph 1.00 - 4.00 k/uL 2.53 2.61 Wood% % 6.9 6.8 Abs Wood <0.87 k/uL 0.72 0.75 Eosin% % 4.9 6.0 Abs Eosin <0.46 k/uL 0.51 (H) 0.66 (H) Baso% % 0.6 0.5 Abs Baso <0.11 k/uL 0.06 0.06 Immature Gran % % 0.4 0.4 IMMATURE GRANS (ABS) <0.10 k/uL 0.04 0.04 NRBC /100 WBC 0.0 0.0 Absolute nRBC <0.01 k/uL <0.01 <0.01 DTYPE Auto Auto Cholesterol, Total <200 mg/dL 165 Triglyceride <150 mg/dL 113 HDL Cholesterol >39 mg/dL 44 Non HDL Cholesterol <130 mg/dL 121 Fasting Time hrs 12 VLDL Cholesterol <30 mg/dL 23 TC:HDL Ratio <5.10 3.75 LDL Cholesterol <100 mg/dL 98 LDL:HDL Ratio <2.54 2.23 Albumin 3.9 - 4.9 g/dL 4.3 Bilirubin, Total 0.2 - 1.3 mg/dL 0.4 Bilirubin, Conjug <0.2 mg/dL <0.2 Alkaline Phosphatase 34 - 123 U/L 64 AST 13 - 35 U/L 20 ALT 7 - 38 U/L 9 Protein, Total 6.3 - 8.0 g/dL 7.4 Iron 41 - 186 ug/dL 46 TIBC 232 - 386 ug/dL 309 Transferrin Saturation 15.0 - 57.0 % 14.9 (L) Vitamin D 25 Hydroxy 31.0 - 80.0 ng/mL 56.1 WSR 0 - 20 mm/hr 17 CRP <0.9 mg/dL <0.3 Ferritin 14.7 - 205.1 ng/mL 57.5 PAST MEDICAL HISTORY Diagnosis Date Allergy 09/11/2013 Asthma 09/27/2012 Excessive daytime sleepiness 08/16/2016 Fibrocystic breast disease in female 09/11/2013 Hyperlipidemia LDL goal <130 07/31/2014 Morbid obesity (HCC) Rosacea 09/27/2012 Vitamin D deficiency 08/04/2014 PAST SURGICAL HISTORY Procedure Laterality Date REMOVE TONSILS/ADENOIDS,12+ Y/O Allergies: ALLERGIES Allergen Reactions Keflex [Cephalexin] Rash Latex Rash Shellfish Derived Anaphylaxis Medications: omeprazole (PRILOSEC) 20 mg capsule Take 1 capsule by mouth once daily. multivitamin tablet Take 1 tablet by mouth once daily. dulaglutide (TRULICITY) 0.75 mg/0.5 mL pen injector Inject 0.75 mg subcutaneously one time a week. Inject dose once per week. Discard Pen After pedi multivit no.205/fluoride (MUHMV-AYV-LRGB ORAL) Take by mouth. ascorbic acid (RANDA-C ORAL) Take 2,000 mg by mouth once daily. ergocalciferol 50,000 unit capsule (VITAMIN D2, DRISDOL) Take 1 capsule by mouth one time a week. fluticasone-vilanterol (BREO ELLIPTA) 200-25 mcg/dose inhaler Inhale 1 Inhalation as instructed once daily. Inhale one puff once daily. DO NOT CLICK OPEN UNTIL READY FOR DOSE albuterol HFA (VENTOLIN HFA) 90 mcg/actuation inhaler Inhale 2 Puffs as instructed every 4 hours asneeded for wheezing/shortness of breath. atorvastatin (LIPITOR) 20 mg tablet Take 1 tablet by mouth daily at bedtime. For cholesterol. EPINEPHrine (EPIPEN) 0.3 mg/0.3 mL auto-injector 0.3 ml subcutaneous as needed for severe allergic reaction/may substitute. albuterol (PROVENTIL) 2.5 mg /3 mL (0.083 %) nebulizer solution Use 3 mL via nebulizer every 6 hours as needed for wheezing/shortness of breath. Use over 5-15minutes. Nebulizer 1 Each once daily. NEBULIZER FOR HOME USE. DX: asthma J 45.209 FAMILY HISTORY Problem Relation Age of Onset Asthma Mother Hyperlipidemia Mother Osteoporosis Mother Diabetes Father Psoriasis Father Arthritis Father Diabetes Maternal Grandmother Heart Maternal Grandmother tachycardia Hypertension Maternal Grandmother None Maternal Grandfather Asthma Paternal Grandmother Stroke Paternal Grandmother Colon Cancer Maternal Uncle Employer And Job Title: [employer]) Years Of Education Completed: 12 years Marital Status: Single Social History Tobacco Use Smoking status: Never Smokeless tobacco: Never Substance Use Topics Alcohol use: No Drug use: No Review of Systems: Review of Systems Are you taking any blood thinners? No Physical Examination: LMP 11/30/2017 No vitals or PE since telemedicine Alert and pleasant, No apparent distress. Easy respirations. Able to speak in complete sentences. Good judgement. Appropriate answers. PLAN: Assessment/Plan (D75.839) Thrombocytosis (primary encounter diagnosis) (E61.1) Iron deficiency (D50.9) Iron deficiency anemia, unspecified iron deficiency anemia type 1. Thrombocytosis - EGD DIAGNOSTIC; Future - COLONOSCOPY DIAGNOSTIC; Future - H PYLORI IGG AB; Future - CELIAC SCREEN WITH REFLEX; Future 2. Iron deficiency - EGD DIAGNOSTIC; Future - COLONOSCOPY DIAGNOSTIC; Future - H PYLORI IGG AB; Future - CELIAC SCREEN WITH REFLEX; Future 3. Iron deficiency anemia, unspecified iron deficiency anemia type - EGD DIAGNOSTIC; Future - COLONOSCOPY DIAGNOSTIC; Future - CONSULT TO GENERAL SURGERY - H PYLORI IGG AB; Future - CELIAC SCREEN WITH REFLEX; Future Follow up in office 3 months/PRN. Recommended to please call office/go to ER if fever, chills, chest pain, SOB, diarrhea, nausea, emesis, worsening abdominal pain, dehydration occurs I spent a total of 30 minutes on the date of the service which included preparing to see the patient, [id number] patient care, completing clinical documentation, obtaining and/or reviewing separately obtained history, performing a medically appropriate examination, counseling and educating the pat ient/family/caregiver, ordering medications, tests, or procedures, communicating with other HCPs (not separately reported), independently interpreting results (not separately reported), communicatingresults to the patient/family/caregiver, and care coordination (not separately reported). Lucila Grier APRN.CNP October 14, 2021 10:18 AM documented in this encounterCleveland [id number] Instructions* Patient Instructions* Lucila Grier APRN.PIPELINE INTEGRITY ENGINEER - 10/14/2021 7:38 AM EDT Images from the original note were not included. Bowel Preparation Instructions for: Golytely, Nulytely, Trilyte or Colyte (polyethylene glycol 3350and electrolytes) IF YOU DO NOT FOLLOW THESE DIRECTIONS, YOUR COLONOSCOPY WILL BE CANCELLED. Klein Instructions: Your bowel must be empty so that your doctor can clearly view your colon. Follow all of the instructions in this handout EXACTLY as they are written. Do NOT eat any solid food the ENTIRE day before your colonoscopy. Drink only clear liquids. Buy your bowel preparation at least 5 days before your colonoscopy. TRANSPORTATION on the Day of Your Exam A responsible person MUST be present with you at Check In prior to your colonoscopy and REMAIN in the endoscopy area until you are discharged. You are NOT ALLOWED to drive, take a taxi or bus, or leave the Endoscopy Center ALONE. If you do not have a responsible catshovel driver (family member or friend) with you to take you home, your exam cannot be done with sedation and will be cancelled. Please bring a list of all of your current medications, including any Over-the Counter medications with you. Medications If you take insulin, diabetic medications or blood thinners such as Coumadin (warfarin), Plavix (clopidogrel), Ticlid (ticlopidine hydrochloride), Agrylin (anagrelide), Xarelto (Rivaroxaban), Pradaxa(Dabigatran), Eliquis (Apixaban), and Effient (Prasugrel). You MUST call the doctors who orders those medicines for instructions on altering the dosage before your colonoscopy. All other medications should be taken the day of the exam with a sip of water including ASPIRIN. Five (5) Days Before Your Colonoscopy Do NOT take medicines that stop diarrhea - such as Imodium, Kaopectate, or Pepto Bismol. Do NOT take fiber supplements - such as Metamucil, Citrucel, or Perdiem. Do NOT take products that contain iron - such as multi-vitamins (the label lists what is in the products). Do NOT take Vitamin E. Buy the prescription bowel preparation solution at your local pharmacy or drugstore pharmacy. 1 01/2019 Bowel Preparation Instructions for: Golytely, Nulytely, Trilyte or Colyte (polyethylene glycol 3350and electrolytes) Three (3) Days Before Your Colonoscopy Do NOT eat high-fiber foods - such as popcorn, beans, seeds (flax, sunflower, quinoa), multigrain bread, nuts, salad/vegetables, or fresh and dried fruit. One (1) Day Before Your Colonoscopy Only drink clear liquids the ENTIRE DAY before your colonoscopy. Do NOT eat any solid foods. Drink at least 8 ounces of clear liquids every hour after waking up. The clear liquids you can drink include: Clear Liquid (NO RED LIQUIDS) DO NOT DRINK Gatorade, Pedialyte or Powerade Clear broth or bouillon Coffee or tea (no milk or non-dairy creamer) Carbonated and non-carbonated soft drinks Yves-Aid or other fruit flavored drinks Strained fruit juices (no pulp) Jell-O, popsicles, hard candy Water Alcohol Milk or non-dairy creamers Noodles or vegetables in soup Juice with pulp Liquid you cannot see through Do not use tobacco/vaping products The bowel preparation solution will be consumed in two parts. Mix the solution the evening before your colonoscopy and refrigerate before drinking. You may add the flavor pack that came with the bowel preparation. Do NOT add ice, sugar or any other flavorings to the solution. Part 1 At 6:00 PM - Evening before your colonoscopy Drink an 8-oz glass of bowel preparation every 10 minutes for a total of 8 glasses. You may continue to drink clear liquids until midnight. Part 2 On the day of your colonoscopy you may drink clear liquids up to (three) 3 hours before your procedure. 4 1/2 hours before your colonoscopy Drink an 8-oz glass of bowel preparation every 10 minutes for a total of 8 glasses. Fifteen (15) minutes later, drink an 8-oz glass of clear liquids every 15 minutes for a total of 2 glasses. You may continue to drink clear liquids up to (three) 3 hours before your exam. 2 01/2019 Bowel Preparation Instructions for: Miralax-Gatorade Preparations IF YOU DO NOT FOLLOW THESE DIRECTIONS, YOUR COLONOSCOPY WILL BE CANCELLED. Klein Instructions: Your bowel must be empty so that your doctor can clearly view your colon. Follow all of the instructions in this handout EXACTLY as they are written. Do NOT eat any solid food the ENTIRE day before your colonoscopy. Buy your bowel preparation at least 5 days before your colonoscopy. Four (4) Dulcolax laxative tablets containing 5mg of bisacodyl each (NOT Dulcolax stool softener) One (1) 8.3oz. bottle Miralax (238 grams) or generic equivalent 2 x 32oz. Bottles of Gatorade (NOT RED) Diabetic Patients: Use G2 (Gatorade 2) TRANSPORTATION on the Day of Your Exam A responsible adult MUST be present with you at Check In prior to your colonoscopy and REMAIN in the endoscopy area until you are discharged. You are NOT ALLOWED to drive, take a taxi or bus, or leave the Endoscopy Center ALONE. If you do not have a responsible catshovel driver (family member or friend) withyou to take you home, your exam cannot be done with sedation and will be cancelled. Please bring a list of all of your current medications, including any Jtyo-wva-Tblzewq medications with you. Medications If you take insulin, diabetic medications or blood thinners such as Coumadin (warfarin), Plavix (clopidogrel), Ticlid (ticlopidine hydrochloride), Agrylin (anagrelide), Xarelto (Rivaroxaban), Pradaxa(Dabigatran), Eliquis (Apixaban), and Effient (Prasugrel). You MUST call the doctors who orders those medicines for instructions on altering the dosage before your colonoscopy. All other medications should be taken the day of the exam with a sip of water including ASPIRIN. Five (5) Days Before Your Colonoscopy Do NOT take medicines that stop diarrhea - such as Imodium, Kaopectate, or Pepto Bismol. Do NOT take fiber supplements - such as Metamucil, Citrucel, or Perdiem. Do NOT take products that contain iron - such as multi-vitamins (the label lists what is in the products). Three (3) Days Before Your Colonoscopy Do NOT eat high-fiber foods - such as popcorn, beans, seeds (flax, sunflower, quinoa), multigrain bread, nuts, salad/vegetables, or fresh and dried fruit. 1 Bowel Preparation Instructions for: Miralax-Gatorade Preparations One (1) Day Before Your Colonoscopy Only drink clear liquids the ENTIRE DAY before your colonoscopy. Do NOT eat any solid foods. Drink at least 8 ounces of clear liquids every hour after waking up. The clear liquids you can drink include: Clear Liquid (NO RED LIQUIDS) DO NOT DRINK Gatorade, Pedialyte or Powerade Clear broth or bouillon Coffee or tea (no milk or non-dairy creamer) Carbonated and non-carbonated soft drinks Yves-Aid or other fruit flavored drinks Strained fruit juices (no pulp) Jell-O, popsicles, hard candy Water Alcohol Milk or non-dairy creamers Noodles or vegetables in soup Juice with pulp Liquid you cannot see through Do not use tobacco/vaping products Mix 1/2 of Miralax bottle (119 grams) in each 32 ounces of Gatorade bottle until dissolved. Keep cool in the refrigerator. DO NOT ADD ICE. The bowel preparation solution will be consumed in two parts. Part 1 5:00 PM - Evening before your colonoscopy Take 4 Dulcolax tablets. 6 PM - Evening before your colonoscopy Drink 32 oz. of the mixed solution. Drink an 8 oz. glass of bowel preparation every 15 minutes for a total of 4 glasses. Fifteen (15) minutes later, drink an 8 oz. glass of of clear liquids every 15 minutes for a total of 2 glasses. You may continue to drink clear liquids till midnight. Part 2 On the day of your colonoscopy you may drink clear liquids up to (three) 3 hours prior to procedure. 4 1/2 hours before your colonoscopy Take another 32 oz. bottle of mixed solution. Drink an 8 oz. glass of bowel prep every 15 minutes for a total of 4 glasses. Fifteen (15) minutes later, drink an 8 oz. glass of clear liquids every 15 minutes for a total of 2glasses. You may continue to drink clear liquids up to (three) 3 hours before your exam. 2 01/2019 [facility]Tr[facility]22 Miscellaneous Notes* Telephone Encounter - Noemy Martino RN - 09/26/2021 3:27 PM EDT Called patient. There was a lot of noise in the background and it was difficult to speak to patient. The call was disconnected. Per Dr. Lopez, patient should follow-up with her PCP. This nurse calledpatient back and informed her to contact her PCP regarding symptoms. Patient stated understanding. Noemy Martino, RN documented in this encounterTrinity [facility]08-18-2022 Miscellaneous Notes* Telephone Encounter - Irene Florentino LPN - 09/22/2021 9:38 AM EDT PATIENT NOTIFIED OF SAME. Call transferred to [facility] to scheduled appointments. * Telephone Encounter - Ariana Bhagat MD - 09/21/2021 11:26 PM EDT She would not necessarily see blood in her stools. Many people can have blood in their digestive tract and not see it. He recommended she see a dr to look at that as well as hand endband cutter. Referrals placed for both * Telephone Encounter - Ceci Webb LPN - 09/21/2021 12:45 PM EDT Patient calling Dr Lopez had told her that she needs to contact Dr Bhagat to get order for colonoscopy. Patient said she has iron deficiency. Patient was asking why does she need to have colonoscopy done? Patient said she has not had blood in her stools. Not sure which colonoscopy order to pend for this patient. Please advise documented in this encounterTr[facility]08-12-2022 Miscellaneous Notes* Telephone Encounter - Misty Willams APRN.CNP - 09/16/2021 4:46 PM EDT I tried sending trulicity to the pharmacy. Let us know if problems. Misty Willams APRN.MARIO * Telephone Encounter - Ceci Webb LPN - 09/16/2021 4:12 PM EDT Patient returned call and went over notes below. Patient asking to have medication changed to something else if possible. * Telephone Encounter - Aristeo Lambert LPN - 09/16/2021 3:58 PM EDT Note from [facility] pharmacy states Weyadi is on back order, pharmacy recommends changing to something else or pt to find another pharmacy. TC to pt, to see what she would like to do, no answer, left message to return call to office. Aristeo Lambert LPN documented in this encounterTrinity [facility]08-05-2022 History of Present illness Narrative* RT Sonam(R) - 09/09/2021 7:45 AM EDT Radiology Service Progress Note PATIENT NAME: Don Rodas DATE OF SERVICE: September 09, 2021 TIME: 9:40 AM PATIENT IDENTITY VERIFICATION COMPLETED USING TWO (2) IDENTIFIERS: Name and Date of confirmedby patient verbally. FALL SCREENING: Has the patient had 2 falls in the last year or 1 fall with injury or currently using an Ambulatory Assistive Device (Walker, Cane, Wheelchair, Crutches, etc.)? No PATIENT GENDER DATA: Female. status: : No status: NO. PATIENT RELEVANT IMPLANT DATA REVIEWED: Not Applicable RADIOLOGY DEPARTMENT: Ultrasound PERIPHERAL IV DATA: Not applicable SIGNED BY: RT Sonam(R) September 09, 2021 9:40 AM documented in this encounterTrinity [facility]08-05-2022 History of Present illness Narrative* RT Sonam(R) - 09/09/2021 7:00 AM EDT Radiology Service Progress Note PATIENT NAME: Don Rodas DATE OF SERVICE: September 09, 2021 TIME: 9:37 AM PATIENT IDENTITY VERIFICATION COMPLETED USING TWO (2) IDENTIFIERS: Name and Date of confirmedby patient verbally. FALL SCREENING: Has the patient had 2 falls in the last year or 1 fall with injury or currently using an Ambulatory Assistive Device (Walker, Cane, Wheelchair, Crutches, etc.)? No PATIENT GENDER DATA: Female. status: : No status: NO. PATIENT RELEVANT IMPLANT DATA REVIEWED: Not Applicable RADIOLOGY DEPARTMENT: Ultrasound PERIPHERAL IV DATA: Not applicable Patients mother accompanied pt during exam. Mother and patient gave verbal permission to do the transvaginal ultrasound. SIGNED BY: RT Sonam(R) September 09, 2021 9:37 AM documented in this encounterTr[facility]08-01-2022 Miscellaneous Notes* Addendum Note - Ariana Bhagat MD - 09/05/2021 5:35 PM EDT Addended by: ARIANA BHAGAT on: 09/05/2021 05:35 PM Modules accepted: Orders * Telephone Encounter - Ariana Bhagat MD - 09/05/2021 5:[address] it * Telephone Encounter - AVERY Kenyon - 09/05/2021 5:21 PM EDT Patient called in hoping to see hematology sooner, she stated that she has had this problem for a long time and would like a consult placed. Please review and advise * Telephone Encounter - Kim Russell Ma - 09/05/2021 5:15 PM EDT Patient was made aware of the results. Patient verbalizes understanding. Kim Russell Ma * Telephone Encounter - Ariana Bhagat MD - 09/05/2021 4:53 PM EDT Platelets are decreased from previous. Recheck in for to six weeks. If remains up,, may have hematology see her. documented in this encounterTr[facility]08-01-2022 History of Present illness Narrative* Misty Willams APRN.PIPELINE INTEGRITY ENGINEER - 09/05/2021 8:19 AM EDT This is a 31 year old female who presents today with: Patient presents with: Follow Up: labs and meds HISTORY OF PRESENT ILLNESS: Don Rodas is a 31 year old female. Patient presents with: Follow Up: labs and meds Pt presents today for follow-up on medication/labs. Had recent ER visit. Refers that she had a stomach ache and constipation. She reports adequate water and fiber. CT in the emergency room showed contracted thick-walled gallbladder without calcified stones. Nonspecific ileus with diffuse fecal retention in the colon. Bilateral ovarian cysts. She reports monthly periods, with a little irregularity lasting 7 days. Asthma: Uses breo daily. Rare use of rescue inhaler. HYPERLIPIDEMIA: Patient is taking medications: No. Patient is watching diet: Yes. Patient denies myalgias: Yes. Patient denies gi upset: Yes Obesity She is interested in starting weight loss medication wegovy. She reports that she has been watching diet. Vitamin D deficiency Has been taking 50,000 units weekly. Requesting refill of this. Last vitamin D level therapeutic on this dose. PAST MEDICAL HISTORY: PAST MEDICAL HISTORY Diagnosis Date Allergy 09/11/2013 Asthma 09/27/2012 Excessive daytime sleepiness 08/16/2016 Fibrocystic breast disease in female 09/11/2013 Hyperlipidemia LDL goal <130 07/31/2014 Morbid obesity (HCC) Rosacea 09/27/2012 Vitamin D deficiency 08/04/2014 PAST SURGICAL HISTORY Procedure Laterality Date REMOVE TONSILS/ADENOIDS,12+ Y/O ALLERGIES Keflex [Cephalexin], Latex, and Shellfish Derived MEDICATIONS Current Outpatient Medications Medication Sig pedi multivit no.205/fluoride (EMCWU-INJ-IBMW ORAL) Take by mouth. ascorbic acid (RANDA-C ORAL) Take 2,000 mg by mouth. EPINEPHrine (EPIPEN) 0.3 mg/0.3 mL auto-injector 0.3 ml subcutaneous as needed for severe allergic reaction/may substitute. albuterol HFA (VENTOLIN HFA) 90 mcg/actuation inhaler Inhale 2 Puffs as instructed every 4 hours asneeded for wheezing/shortness of breath. fluticasone-vilanterol (BREO ELLIPTA) 200-25 mcg/dose inhaler Inhale 1 Inhalation as instructed once daily. Inhale one puff once daily. DO NOT CLICK OPEN UNTIL READY FOR DOSE atorvastatin (LIPITOR) 20 mg tablet Take 1 tablet by mouth daily at bedtime. For cholesterol. albuterol (PROVENTIL) 2.5 mg /3 mL (0.083 %) nebulizer solution Use 3 mL via nebulizer every 6 hours as needed for wheezing/shortness of breath. Use over 5-15minutes. cholecalciferol (VITAMIN D-3) 50 mcg (2,000 unit) tablet Take 1 tablet by mouth once daily. Nebulizer 1 Each once daily. NEBULIZER FOR HOME USE. DX: asthma J 45.909 No current facility-administered medications for this visit. FAMILY HISTORY Problem Relation Age of Onset Asthma Mother None Father Heart Maternal Grandmother tachycardia other (Lupus) Maternal Grandmother None Maternal Grandfather Asthma Paternal Grandmother Stroke Paternal Grandmother None Paternal Grandfather Social History Tobacco Use Smoking status: Never Smoker Smokeless tobacco: Never Used Substance Use Topics Alcohol use: No Drug use: No EXAM: BP 106/72 Pulse 74 Resp 20 Wt 112 kg (247 lb) LMP 11/30/2017 (Approximate) SpO2 97% BMI45.18 kg/m PHYSICAL EXAM: General Appearance: Well appearing, alert, in no acute distress, well-hydrated, well nourished.. Skin: Skin color, texture, turgor normal, no suspicious rashes or lesions. Head: Normocephalic, no masses, lesions, tenderness or abnormalities. Eyes: Anicteric sclera. Pupils are equally round and reactive to light. Extraocular movements are intact. . Ears: External ears normal, canals clear, Normal TMs bilaterally. Neck: Supple, no adenopathy; thyroid symmetric, normal size, no bruits. Lungs: Lungs clear to auscultation. No wheezing, rhonchi, rales.. Heart: RRR without murmur, gallop, or rubs. No ectopy. Abdomen: Normal abdominal exam, Abdomen soft, non-tender. Bowel sounds normal. No masses, organomegaly. Extremities: No deformities, edema, skin discoloration, clubbing or cyanosis. Good capillary refill. Neurologic: Gait normal. Reflexes normal and symmetric. Sensation grossly intact.. ASSESSMENT/PLAN: 1. Hyperlipidemia LDL goal <130 - ICD9: 272.4, ICD10: E78.5 (primary diagnosis) - good control - Continue current medication. - ATORVASTATIN 20 MG TABLET 2. Vitamin D deficiency - ICD9: 268.9, ICD10: E55.9 Continue same dose. - ERGOCALCIFEROL (VITAMIN D2) 1,250 MCG (50,000 UNIT) CAPSULE 3. Ovarian cyst, bilateral - ICD9: 620.2, ICD10: N83.201, N83.202 Bilateral ovarian cyst noted on recent CT in the emergency room. We will go ahead and get ultrasound. Question possible polycystic ovarian syndrome. - US FEMALE PELVIS TRANSABD LTD 4. Generalized abdominal pain - ICD9: 789.07, ICD10: R10.[address] in the emergency room, she was noted to have gallbladder wall thickening. We will go ahead and get ultrasound of the gallbladder. - US ABD RT UPPER QUADRANT 5. Mild intermittent asthma without complication - ICD9: 493.90, ICD10: J45.20 Mild intermittent Asthma stable - Continue current meds - Avoidance of triggers recommended - FLUTICASONE FUROATE 200 MCG-VILANTEROL 25 MCG/DOSE INHALATION POWDER - ALBUTEROL SULFATE HFA 90 MCG/ACTUATION AEROSOL INHALER 6. Obesity, Class III, BMI 40-49.9 (morbid obesity) (HCC) - ICD9: 278.01, ICD10: E66.01 Weight increasing - Pharmacological intervention She is interested in the Wegovy. Aware that this may not be covered by insurance. We will go ahead and send in. Discussed potential side effects of ordered medications. Patient voices understanding. - SEMAGLUTIDE (WEIGHT LOSS) 0.25 MG/0.5 ML SUBCUTANEOUS PEN INJECTOR Plan to recheck in 1 month. Discussed treatment plan and patient voices understanding. Patient's questions answered appropriately. Medications and potential side effects were discussed and patient voices understanding. Return to the office as scheduled or as needed for worsening/no improvement. Misty Willams APRN.MARIO This note was partially generated using [employer] voice recognition system. Note was reviewed for accuracy. There may be minor misspellings or grammar miscues with [employer] voice recognition. documented in this encounterTr[facility]07-22-2022 Miscellaneous Notes* Telephone Encounter - Dixie Kraus Ma - 08/26/2021 9:19 AM EDT Patient was notified and scheduled for medication f/u Dixie Kraus Ma * Telephone Encounter - Ariana Bhagat MD - 08/20/2021 8:09 AM EDT Labs are all stable. Only issue is platelets are minimally up. Can go up as a results of any stressin the body. Often not significant but will follow Recheck platelets in two weeks. Also needs a check in office, has not been seen in office since 2018 and I have only seen her once over a year ago virtually. documented in this encounterTrinity [facility]07-16-2022 Miscellaneous Notes* Telephone Encounter - Ariana Bhagat MD - 08/20/2021 8:11 AM EDT See te documented in this encounterTrinity [facility]06-28-2022 Miscellaneous Notes* Telephone Encounter - Livia Tabor LPN - 08/02/2021 10:31 AM EDT Patient made aware. * Telephone Encounter - Ariana Bhagat MD - 08/02/2021 10:04 AM EDT placed * Telephone Encounter - Livia Tabor LPN - 08/02/2021 9:52 AM EDT Patient made aware. Patient requesting annual blood work orders be put in. Declines set up of annual office visit at this time. * Telephone Encounter - Ariana Bhagat MD - 08/02/2021 9:44 AM EDT Ok, please let patient know * Telephone Encounter - Dixie Kraus Ma - 08/02/2021 8:52 AM EDT Rx needs [facility] to [facility] mother is aware is generic but needs to update insurance information on our end as well as pharmacy so it can be processed correctly Dixie Kraus Ma * Telephone Encounter - Ariana Bhagat MD - 08/01/2021 5:25 PM EDT It was a generic sent to them already. Not really sure what they are talking about I resent and wrote may substitute on it to try and push through. * Telephone Encounter - Edyta Covarrubias LPN - 08/01/2021 4:55 PM EDT Mother called for pt and states pt spoke with the pharmacy and was told she needs to have the generic for the Epic pen sent to them. Please review and advise. Edyta Covarrubias LPN * Telephone Encounter - Rosey Mandel LPN - 07/28/2021 12:22 PM EDT Reached out to covermymeds and they faxed PA general form. * Telephone Encounter - Rosey Mandel LPN - 07/28/2021 10:59 AM EDT I DO NOT EVEN KNOW WHAT TO DO HERE. I will work on this. * Telephone Encounter - Rosey Mandel LPN - 07/28/2021 10:57 AM EDT per [employer]. don rodas Klein: [id number] Need help? Call us at Outcome Additional Information Required [facility] [employer] does not manage prior authorizations for this patient. Please resubmit the ePA request to [facility]. DrugEPINEPHrine 0.3MG/0.3ML auto-injectors FormExpress Scripts Electronic PA Form (2016 [facility]) * Telephone Encounter - Rosey Mandel LPN - 07/28/2021 9:53 AM EDT I will follow up in this. Called the pt yesterday she notes she has [place]. Per her mother ID# is [id number]. pharmacy again. They report they are running rx under anthem. They have ID number [id number]. Phone number to call is [phone]. BIN # is [id number]. Called and PA is needed. They will start this via covermymeds. KLEIN is [id number]. Fax is coming for this. * Telephone Encounter - Ariana Bhagat MD - 07/27/2021 5:30 PM EDT So, does she really need an authorization. Does she want us to send it to another pharmacy. Does her pharmacy have the correct insurance? * Telephone Encounter - Rosey Mandel LPN - 07/27/2021 4:46 PM EDT Called [facility] and they report they have 2 different epipens they offer. pts insurance is not covered with either. [facility] have the epipen covered with [employer]. Called pt to review. She reports she does not have [employer]. She has [employer] cross. * Telephone Encounter - Rosey Mandel LPN - 07/27/2021 4:10 PM EDT Normally no PA is needed for this. Did request an electronic PA for review. * Telephone Encounter - Sanna Reeves RN - 07/27/2021 4:00 PM EDT Pt reports she is out of Epipens and if we could push this through as fast as we can she would be grateful. [facility] said they will call the insurance company as well and hope we can figure something out in the the middle. Prior Authorization Documentation Prior authorization requested for the following medication: Medication: Epipen Provider: Dr Ariana Bhagat Insurance Company Name: [employer] Company Phone number: Patient ID number: [id number] Pharmacy Name: [place], [place] Pharmacy Telephone number: [phone] documented in this encounterTrinity [facility]05-16-2022 Miscellaneous Notes* Telephone Encounter - Eufemia Soto LPN - 06/20/2021 10:16 AM EDT Patient phones requesting refills as follows: Pending Prescriptions Disp Refills ALBUTEROL SULFATE HFA 90 MCG/ACTUATION AEROSOL INHALER 3 Inhaler 3 Sig: Inhale 2 Puffs as instructed every 4 hours as needed for wheezing/shortness of breath. GONZALES: No BREO ELLIPTA 200 MCG-25 MCG/DOSE POWDER FOR INHALATION 60 Each 11 Sig: Inhale 1 Inhalation as instructed once daily. Inhale one puff once daily. DO NOT CLICK OPEN UNTIL READY FOR DOSE GONZALES: No BRONSON-08/19/20 Labs-08/25/20 NOV-none Please review and advise. Eufemia Soto LPN documented in this encounterTrinity Health [facility] Campus04-26-2022 Miscellaneous Notes* Telephone Encounter - Glen Mejia - 05/31/2021 8:18 AM EDT Patient notified via [employer] message. * Telephone Encounter - Misty Willams APRN.CNP - 05/30/2021 8:13 PM EDT Orders in. Misty Willams APRN.MARIO * Telephone Encounter - Lucia Hernandez - 05/30/2021 12:40 PM EDT Pt would like to get labs done before next appt. The lab orders need to be updated. Lab system doesnot use (for remote [facility] use) orders with the new system. documented in this encounterTrinity Health [facility] Campus04-06-2022 Miscellaneous Notes* Telephone Encounter - Raven Luevano LPN - 05/11/2021 2:27 PM EDT Explained to patient and she states that she is going to ask another doctor and hangs up. * Telephone Encounter - Ariana Bhagat MD - 05/11/2021 2:07 PM EDT The lupus designation does if she is on things like plaquenil or methotrexate, chronic prednisone etc. The weight does not meet requirements unless the pharmacy or place she is utilizing to get the vaccine is willing. I am happy to write a letter if I have something to go on however I have not had any place that administers the vaccine ask for a letter since the pandemic began. They usually do not require that. * Telephone Encounter - Ilya Benson RN - 05/11/2021 2:01 PM EDT Patient returned call and given provider's message below. Patient reports she is obese, and has tested + for lupus. Reports her parents expose her to covid constantly (mother is a teacher, and fatherworks with people) and she does not want to catch covid. Asking if lupus qualifies her to get the 4th covid booster. * Telephone Encounter - Sanna Reeves RN - 05/10/2021 4:20 PM EDT Called and left a voicemail for the Patient to call back and ask for a nurse to receive the providers message. Sanna Reeves RN * Telephone Encounter - Ariana Bhagat MD - 05/10/2021 4:07 PM EDT Unfortunately, the current recommendations are only for people between 19 and 50 who are immunocompromised-for instance cancer patients on chemotherapy etc. If they change the indications she would be able to consider later on. * Telephone Encounter - Sadie Juarez LPN - 05/10/2021 2:42 PM EDT Pt calls to ask if pcp can write a letter for her to get fourth Covid booster. Pt reports she has asthma and is obese. Pt request letter be sent through . Call pt with any problems. 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 Please call pt when this is ready. Pt is aware that this will be picked up at the [facility]. Pt gave mom the ok to pick it up for pt. Thank you, Ruba Love documented in this encounterTrinity Health [facility]07-16-2021 Miscellaneous Notes* Telephone Encounter - Anjana Gee LPN - 08/20/2020 2:34 PM EDT Prior Authorization has been completed online at [email or web address] for Epi pen, will await response. KLEIN- [id number] Please keep encounter open until final decision has been received and documented from insurance company. Mari Gee LPN documented in this encounterTrinity Health [facility] Campus01-27-2015 History of Past illness Narrative* Problem Noted Date Resolved Date Sprain of neck 03/03/2014 07/31/2014 Sprain of thoracic region 03/03/20142014 Low back pain 11/19/2012 08/16/2016 documented as of this encounter (statuses as of 05/11/2021) [facility] History of Past illness Narrative* Problem Noted Date Resolved Date Sprain of neck 03/03/2014 07/31/2014 Sprain of thoracic region 03/03/20142014 Low back pain 11/19/2012 08/16/2016 documented as of this encounter (statuses as of 05/31/2021) [address] History of Past illness Narrative* Problem Noted Date Resolved Date Sprain of neck 03/03/2014 07/31/2014 Sprain of thoracic region 03/03/20142014 Low back pain 11/19/2012 08/16/2016 documented as of this encounter (statuses as of 06/07/2021) [address] History of Past illness Narrative* Problem Noted Date Resolved Date Sprain of neck 03/03/2014 07/31/2014 Sprain of thoracic region 03/03/20142014 Low back pain 11/19/2012 08/16/2016 documented as of this encounter (statuses as of 06/20/2021) [address] History of Past illness Narrative* Problem Noted Date Resolved Date Sprain of neck 03/03/2014 07/31/2014 Sprain of thoracic region 03/03/20142014 Low back pain 11/19/2012 08/16/2016 documented as of this encounter (statuses as of 07/07/2021) [address]27-2015 History of Past illness Narrative* Problem Noted Date Resolved Date Sprain of neck 03/03/2014 07/31/2014 Sprain of thoracic region 03/03/20142014 Low back pain 11/19/2012 08/16/2016 documented as of this encounter (statuses as of 07/12/2021) [address]27-2015 History of Past illness Narrative* Problem Noted Date Resolved Date Sprain of neck 03/03/2014 07/31/2014 Sprain of thoracic region 03/03/20142014 Low back pain 11/19/2012 08/16/2016 documented as of this encounter (statuses as of 08/02/2021) [address]27-2015 History of Past illness Narrative* Problem Noted Date Resolved Date Sprain of neck 03/03/2014 07/31/2014 Sprain of thoracic region 03/03/20142014 Low back pain 11/19/2012 08/16/2016 documented as of this encounter (statuses as of 08/20/2021) [address] History of Past illness Narrative* Problem Noted Date Resolved Date Sprain of neck 03/03/2014 07/31/2014 Sprain of thoracic region 03/03/20142014 Low back pain 11/19/2012 08/16/2016 documented as of this encounter (statuses as of 08/26/2021) [address]2015 History of Past illness Narrative* Problem Noted Date Resolved Date Sprain of neck 03/03/2014 07/31/2014 Sprain of thoracic region 03/03/20142014 Low back pain 11/19/2012 08/16/2016 documented as of this encounter (statuses as of 09/05/2021) [address] History of Past illness Narrative* Problem Noted Date Resolved Date Sprain of neck 03/03/2014 07/31/2014 Sprain of thoracic region 03/03/20142014 Low back pain 11/19/2012 08/16/2016 documented as of this encounter (statuses as of 09/05/2021) [address]2015 History of Past illness Narrative* Problem Noted Date Resolved Date Sprain of neck 03/03/2014 07/31/2014 Sprain of thoracic region 03/03/20142014 Low back pain 11/19/2012 08/16/2016 documented as of this encounter (statuses as of 09/10/2021) [address]2015 History of Past illness Narrative* Problem Noted Date Resolved Date Sprain of neck 03/03/2014 07/31/2014 Sprain of thoracic region 03/03/20142014 Low back pain 11/19/2012 08/16/2016 documented as of this encounter (statuses as of 09/10/2021) [address]2015 History of Past illness Narrative* Problem Noted Date Resolved Date Sprain of neck 03/03/2014 07/31/2014 Sprain of thoracic region 03/03/20142014 Low back pain 11/19/2012 08/16/2016 documented as of this encounter (statuses as of 09/19/2021) [address]2015 History of Past illness Narrative* Problem Noted Date Resolved Date Sprain of neck 03/03/2014 07/31/2014 Sprain of thoracic region 03/03/20142014 Low back pain 11/19/2012 08/16/2016 documented as of this encounter (statuses as of 09/22/2021) [address] History of Past illness Narrative* Problem Noted Date Resolved Date Sprain of neck 03/03/2014 07/31/2014 Sprain of thoracic region 03/03/20142014 Low back pain 11/19/2012 08/16/2016 documented as of this encounter (statuses as of 09/26/2021) [address]2015 History of Past illness Narrative* Problem Noted Date Resolved Date Sprain of neck 03/03/2014 07/31/2014 Sprain of thoracic region 03/03/20142014 Low back pain 11/19/2012 08/16/2016 documented as of this encounter (statuses as of 10/14/2021) [address] History of Past illness Narrative* Problem Noted Date Resolved Date Sprain of neck 03/03/2014 07/31/2014 Sprain of thoracic region 03/03/20142014 Low back pain 11/19/2012 08/16/2016 documented as of this encounter (statuses as of 10/18/2021) [address]2015 History of Past illness Narrative* Problem Noted Date Resolved Date Sprain of neck 03/03/2014 07/31/2014 Sprain of thoracic region 03/03/20142014 Low back pain 11/19/2012 08/16/2016 documented as of this encounter (statuses as of 10/19/2021) [address]2015 History of Past illness Narrative* Problem Noted Date Resolved Date Sprain of neck 03/03/2014 07/31/2014 Sprain of thoracic region 03/03/20142014 Low back pain 11/19/2012 08/16/2016 documented as of this encounter (statuses as of 10/20/2021) [address]2015 History of Past illness Narrative* Problem Noted Date Resolved Date Sprain of neck 03/03/2014 07/31/2014 Sprain of thoracic region 03/03/20142014 Low back pain 11/19/2012 08/16/2016 documented as of this encounter (statuses as of 11/14/2021) [address]2015 History of Past illness Narrative* Problem Noted Date Resolved Date Sprain of neck 03/03/2014 07/31/2014 Sprain of thoracic region 03/03/20142014 Low back pain 11/19/2012 08/16/2016 documented as of this encounter (statuses as of 11/22/2021) [address]2015 History of Past illness Narrative* Problem Noted Date Resolved Date Sprain of neck 03/03/2014 07/31/2014 Sprain of thoracic region 03/03/20142014 Low back pain 11/19/2012 08/16/2016 documented as of this encounter (statuses as of 12/07/2021) [address]-2015 History of Past illness Narrative* Problem Noted Date Resolved Date Sprain of neck 03/03/2014 07/31/2014 Sprain of thoracic region 03/03/20142014 Low back pain 11/19/2012 08/16/2016 documented as of this encounter (statuses as of 12/21/2021) [address]-2015 History of Past illness Narrative* Problem Noted Date Resolved Date Sprain of neck 03/03/2014 07/31/2014 Sprain of thoracic region 03/03/20142014 Low back pain 11/19/2012 08/16/2016 documented as of this encounter (statuses as of 12/22/2021) [address]-2015 History of Past illness Narrative* Problem Noted Date Resolved Date Sprain of neck 03/03/2014 07/31/2014 Sprain of thoracic region 03/03/20142014 Low back pain 11/19/2012 08/16/2016 documented as of this encounter (statuses as of 12/23/2021) [address]2015 History of Past illness Narrative* Problem Noted Date Resolved Date Sprain of neck 03/03/2014 07/31/2014 Sprain of thoracic region 03/03/20142014 Low back pain 11/19/2012 08/16/2016 documented as of this encounter (statuses as of 01/06/2022) [address]27-2015 History of Past illness Narrative* Problem Noted Date Resolved Date Sprain of neck 03/03/2014 07/31/2014 Sprain of thoracic region 03/03/20142014 Low back pain 11/19/2012 08/16/2016 documented as of this encounter (statuses as of 01/19/2022) [address]-2015 History of Past illness Narrative* Problem Noted Date Resolved Date Sprain of neck 03/03/2014 07/31/2014 Sprain of thoracic region 03/03/20142014 Low back pain 11/19/2012 08/16/2016 documented as of this encounter (statuses as of 01/25/2022) [address]27-2015 History of Past illness Narrative* Problem Noted Date Resolved Date Sprain of neck 03/03/2014 07/31/2014 Sprain of thoracic region 03/03/20142014 Low back pain 11/19/2012 08/16/2016 documented as of this encounter (statuses as of 03/21/2022) [address]27-2015 History of Past illness Narrative* Problem Noted Date Resolved Date Sprain of neck 03/03/2014 07/31/2014 Sprain of thoracic region 03/03/20142014 Low back pain 11/19/2012 08/16/2016 documented as of this encounter (statuses as of 03/23/2022) [address]-2015 History of Past illness Narrative* Problem Noted Date Resolved Date Sprain of neck 03/03/2014 07/31/2014 Sprain of thoracic region 03/03/20142014 Low back pain 11/19/2012 08/16/2016 documented as of this encounter (statuses as of 03/28/2022) [address]27-2015 History of Past illness Narrative* Problem Noted Date Resolved Date Sprain of neck 03/03/2014 07/31/2014 Sprain of thoracic region 03/03/20142014 Low back pain 11/19/2012 08/16/2016 documented as of this encounter (statuses as of 03/31/2022) [address]27-2015 History of Past illness Narrative* Problem Noted Date Resolved Date Sprain of neck 03/03/2014 07/31/2014 Sprain of thoracic region 03/03/20142014 Low back pain 11/19/2012 08/16/2016 documented as of this encounter (statuses as of 04/13/2022) [address] History of Past illness Narrative* Problem Noted Date Resolved Date Sprain of neck 03/03/2014 07/31/2014 Sprain of thoracic region 03/03/20142014 Low back pain 11/19/2012 08/16/2016 documented as of this encounter (statuses as of 04/17/2022) [address]27[address]2015 History of Past illness Narrative* Problem Noted Date Resolved Date Sprain of neck 03/03/2014 07/31/2014 Sprain of thoracic region 03/03/20142014 Low back pain 11/19/2012 08/16/2016 documented as of this encounter (statuses as of 04/18/2022) [address]27-2015 History of Past illness Narrative* Problem Noted Date Resolved Date Sprain of neck 03/03/2014 07/31/2014 Sprain of thoracic region 03/03/20142014 Low back pain 11/19/2012 08/16/2016 documented as of this encounter (statuses as of 04/19/2022) [address]27-2015 History of Past illness Narrative* Problem Noted Date Resolved Date Sprain of neck 03/03/2014 07/31/2014 Sprain of thoracic region 03/03/20142014 Low back pain 11/19/2012 08/16/2016 documented as of this encounter (statuses as of 04/20/2022) [address]27-2015 History of Past illness Narrative* Problem Noted Date Resolved Date Sprain of neck 03/03/2014 07/31/2014 Sprain of thoracic region 03/03/20142014 Low back pain 11/19/2012 08/16/2016 documented as of this encounter (statuses as of 04/26/2022) [address]27-2015 History of Past illness Narrative* Problem Noted Date Resolved Date Sprain of neck 03/03/2014 07/31/2014 Sprain of thoracic region 03/03/20142014 Low back pain 11/19/2012 08/16/2016 documented as of this encounter (statuses as of 05/09/2022) [address] History of Past illness Narrative* Problem Noted Date Resolved Date Sprain of neck 03/03/2014 07/31/2014 Sprain of thoracic region 03/03/20142014 Low back pain 11/19/2012 08/16/2016 documented as of this encounter (statuses as of 05/09/2022) [address] History of Past illness Narrative* Problem Noted Date Resolved Date Sprain of neck 03/03/2014 07/31/2014 Sprain of thoracic region 03/03/20142014 Low back pain 11/19/2012 08/16/2016 documented as of this encounter (statuses as of 05/10/2022) [address] History of Past illness Narrative* Problem Noted Date Resolved Date Sprain of neck 03/03/2014 07/31/2014 Sprain of thoracic region 03/03/20142014 Low back pain 11/19/2012 08/16/2016 documented as of this encounter (statuses as of 05/10/2022) [address] History of Past illness Narrative* Problem Noted Date Resolved Date Sprain of neck 03/03/2014 07/31/2014 Sprain of thoracic region 03/03/20142014 Low back pain 11/19/2012 08/16/2016 documented as of this encounter (statuses as of 05/12/2022) [address]27-2015 History of Past illness Narrative* Problem Noted Date Resolved Date Sprain of neck 03/03/2014 07/31/2014 Sprain of thoracic region 03/03/20142014 Low back pain 11/19/2012 08/16/2016 documented as of this encounter (statuses as of 05/13/2022) [address]27-2015 History of Past illness Narrative* Problem Noted Date Resolved Date Sprain of neck 03/03/2014 07/31/2014 Sprain of thoracic region 03/03/20142014 Low back pain 11/19/2012 08/16/2016 documented as of this encounter (statuses as of 05/15/2022) [address]27[address]2015 History of Past illness Narrative* Problem Noted Date Resolved Date Sprain of neck 03/03/2014 07/31/2014 Sprain of thoracic region 03/03/20142014 Low back pain 11/19/2012 08/16/2016 documented as of this encounter (statuses as of 05/19/2022) [address] History of Past illness Narrative* Problem Noted Date Resolved Date Sprain of neck 03/03/2014 07/31/2014 Sprain of thoracic region 03/03/20142014 Low back pain 11/19/2012 08/16/2016 documented as of this encounter (statuses as of 06/08/2022) [address]27[address]2015 History of Past illness Narrative* Problem Noted Date Resolved Date Sprain of neck 03/03/2014 07/31/2014 Sprain of thoracic region 03/03/20142014 Low back pain 11/19/2012 08/16/2016 documented as of this encounter (statuses as of 06/28/2022) [address]2015 History of Past illness Narrative* Problem Noted Date Resolved Date Sprain of neck 03/03/2014 07/31/2014 Sprain of thoracic region 03/03/20142014 Low back pain 11/19/2012 08/16/2016 documented as of this encounter (statuses as of 07/27/2022) [address]27[address]2015 History of Past illness Narrative* Problem Noted Date Resolved Date Sprain of neck 03/03/2014 07/31/2014 Sprain of thoracic region 03/03/20142014 Low back pain 11/19/2012 08/16/2016 documented as of this encounter (statuses as of 08/03/2022) [address]27[address]2015 History of Past illness Narrative* Problem Noted Date Resolved Date Sprain of neck 03/03/2014 07/31/2014 Sprain of thoracic region 03/03/20142014 Low back pain 11/19/2012 08/16/2016 documented as of this encounter (statuses as of 08/07/2022) [address]2015 History of Past illness Narrative* Problem Noted Date Diagnosed Date Resolved Date Sprain of neck 03/03/2014 07/31/2014 Sprain of thoracic region 03/03/2014 Low back pain 11/19/2012 08/16/2016 documented as of this encounter (statuses as of 08/20/2022) [address] History of Past illness Narrative* Problem Noted Date Diagnosed Date Resolved Date Sprain of neck 03/03/2014 07/31/2014 Sprain of thoracic region 03/03/2014 Low back pain 11/19/2012 08/16/2016 documented as of this encounter (statuses as of 08/24/2022) [address] History of Past illness Narrative* Problem Noted Date Diagnosed Date Resolved Date Sprain of neck 03/03/2014 07/31/2014 Sprain of thoracic region 03/03/2014 Low back pain 11/19/2012 08/16/2016 documented as of this encounter (statuses as of 08/24/2022) [address] History of Past illness Narrative* Problem Noted Date Diagnosed Date Resolved Date Sprain of neck 03/03/2014 07/31/2014 Sprain of thoracic region 03/03/2014 Low back pain 11/19/2012 08/16/2016 documented as of this encounter (statuses as of 08/25/2022) [address]27-2015 History of Past illness Narrative* Problem Noted Date Diagnosed Date Resolved Date Sprain of neck 03/03/2014 07/31/2014 Sprain of thoracic region 03/03/2014 Low back pain 11/19/2012 08/16/2016 documented as of this encounter (statuses as of 09/04/2022) [address]27-2015 History of Past illness Narrative* Problem Noted Date Diagnosed Date Resolved Date Sprain of neck 03/03/2014 07/31/2014 Sprain of thoracic region 03/03/2014 Low back pain 11/19/2012 08/16/2016 documented as of this encounter (statuses as of 09/07/2022) [address]27-2015 History of Past illness Narrative* Problem Noted Date Diagnosed Date Resolved Date Sprain of neck 03/03/2014 07/31/2014 Sprain of thoracic region 03/03/2014 Low back pain 11/19/2012 08/16/2016 documented as of this encounter (statuses as of 09/08/2022) [address]-2015 History of Past illness Narrative* Problem Noted Date Diagnosed Date Resolved Date Sprain of neck 03/03/2014 07/31/2014 Sprain of thoracic region 03/03/2014 Low back pain 11/19/2012 08/16/2016 documented as of this encounter (statuses as of 09/08/2022) [address]-2015 History of Past illness Narrative* Problem Noted Date Diagnosed Date Resolved Date Sprain of neck 03/03/2014 07/31/2014 Sprain of thoracic region 03/03/2014 Low back pain 11/19/2012 08/16/2016 documented as of this encounter (statuses as of 09/08/2022) [address]-2015 History of Past illness Narrative* Problem Noted Date Diagnosed Date Resolved Date Sprain of neck 03/03/2014 07/31/2014 Sprain of thoracic region 03/03/2014 Low back pain 11/19/2012 08/16/2016 documented as of this encounter (statuses as of 11/14/2022) [address]-2015 History of Past illness Narrative* Problem Noted Date Diagnosed Date Resolved Date Sprain of neck 03/03/2014 07/31/2014 Sprain of thoracic region 03/03/2014 Low back pain 11/19/2012 08/16/2016 documented as of this encounter (statuses as of 12/11/2022) [address]-2015 History of Past illness Narrative* Problem Noted Date Diagnosed Date Resolved Date Sprain of neck 03/03/2014 07/31/2014 Sprain of thoracic region 03/03/2014 Low back pain 11/19/2012 08/16/2016 documented as of this encounter (statuses as of 12/12/2022) [address]-2015 History of Past illness Narrative* Problem Noted Date Diagnosed Date Resolved Date Sprain of neck 03/03/2014 07/31/2014 Sprain of thoracic region 03/03/2014 Low back pain 11/19/2012 08/16/2016 documented as of this encounter (statuses as of 12/17/2022) [address]-2015 History of Past illness Narrative* Problem Noted Date Diagnosed Date Resolved Date Sprain of neck 03/03/2014 07/31/2014 Sprain of thoracic region 03/03/2014 Low back pain 11/19/2012 08/16/2016 documented as of this encounter (statuses as of 12/17/2022) [address]-2015 History of Past illness Narrative* Problem Noted Date Diagnosed Date Resolved Date Sprain of neck 03/03/2014 07/31/2014 Sprain of thoracic region 03/03/2014 Low back pain 11/19/2012 08/16/2016 documented as of this encounter (statuses as of 12/24/2022) [address]-2015 History of Past illness Narrative* Problem Noted Date Diagnosed Date Resolved Date Sprain of neck 03/03/2014 07/31/2014 Sprain of thoracic region 03/03/2014 Low back pain 11/19/2012 08/16/2016 documented as of this encounter (statuses as of 12/24/2022) [address]-2015 History of Past illness Narrative* Problem Noted Date Diagnosed Date Resolved Date Sprain of neck 03/03/2014 07/31/2014 Sprain of thoracic region 03/03/2014 Low back pain 11/19/2012 08/16/2016 documented as of this encounter (statuses as of 12/28/2022) [address]-2015 History of Past illness Narrative* Problem Noted Date Diagnosed Date Resolved Date Sprain of neck 03/03/2014 07/31/2014 Sprain of thoracic region 03/03/2014 Low back pain 11/19/2012 08/16/2016 documented as of this encounter (statuses as of 01/08/2023) [address]-2015 History of Past illness Narrative* Problem Noted Date Diagnosed Date Resolved Date Sprain of neck 03/03/2014 07/31/2014 Sprain of thoracic region 03/03/2014 Low back pain 11/19/2012 08/16/2016 documented as of this encounter (statuses as of 01/09/2023) [address]-2015 History of Past illness Narrative* Problem Noted Date Diagnosed Date Resolved Date Sprain of neck 03/03/2014 07/31/2014 Sprain of thoracic region 03/03/2014 Low back pain 11/19/2012 08/16/2016 documented as of this encounter (statuses as of 01/10/2023) [address] History of Past illness Narrative* Problem Noted Date Diagnosed Date Resolved Date Sprain of neck 03/03/2014 07/31/2014 Sprain of thoracic region 03/03/2014 Low back pain 11/19/2012 08/16/2016 documented as of this encounter (statuses as of 04/09/2023) [address] History of Past illness Narrative* Problem Noted Date Diagnosed Date Resolved Date Sprain of neck 03/03/2014 07/31/2014 Sprain of thoracic region 03/03/2014 Low back pain 11/19/2012 08/16/2016 documented as of this encounter (statuses as of 04/24/2023) [address] History of Past illness Narrative* Problem Noted Date Diagnosed Date Resolved Date Sprain of neck 03/03/2014 07/31/2014 Sprain of thoracic region 03/03/2014 Low back pain 11/19/2012 08/16/2016 documented as of this encounter (statuses as of 04/24/2023) [address] History of Past illness Narrative* Problem Noted Date Diagnosed Date Resolved Date Sprain of neck 03/03/2014 07/31/2014 Sprain of thoracic region 03/03/2014 Low back pain 11/19/2012 08/16/2016 documented as of this encounter (statuses as of 05/01/2023) [address] History of Past illness Narrative* Problem Noted Date Diagnosed Date Resolved Date Sprain of neck 03/03/2014 07/31/2014 Sprain of thoracic region 03/03/2014 Low back pain 11/19/2012 08/16/2016 documented as of this encounter (statuses as of 05/07/2023) [address] History of Past illness Narrative* Problem Noted Date Diagnosed Date Resolved Date Sprain of neck 03/03/2014 07/31/2014 Sprain of thoracic region 03/03/2014 Low back pain 11/19/2012 08/16/2016 documented as of this encounter (statuses as of 05/09/2023) [facility]01-27-2015 History of Past illness Narrative* Problem Noted Date Diagnosed Date Resolved Date Sprain of neck 03/03/2014 07/31/2014 Sprain of thoracic region 03/03/2014 Low back pain 11/19/2012 08/16/2016 documented as of this encounter (statuses as of 05/11/2023) [facility] Diagnosis Hyperlipidemia LDL goal <130- Primary Other and unspecified hyperlipidemia [facility]* Diagnosis Mild intermittent asthma without complication Unspecified asthma [facility]* Diagnosis Shellfish allergy Allergy to seafood [facility]* Diagnosis Vitamin D deficiency- Primary Unspecified vitamin D deficiency Shellfish allergy Allergy to seafood Hyperlipidemia LDL goal <130 Other and unspecified hyperlipidemia [facility] noteNo assessment information availableWTriHealth [facility] Work Phone: Evaluation note* Diagnosis Thrombocytosis- Primary Essential thrombocythemia [facility]* Diagnosis Hyperlipidemia LDL goal <130- Primary Other and unspecified hyperlipidemia Vitamin D deficiency Unspecified vitamin D deficiency Ovarian cyst, bilateral Other and unspecified ovarian cyst Generalized abdominal pain Abdominal pain, generalized Mild intermittent asthma without complication Unspecified asthma Obesity, Class III, BMI 40-49.9 (morbid obesity) (HCC) Morbid obesity [facility]* Diagnosis Thrombocytosis- Primary Essential thrombocythemia [facility]* Diagnosis Generalized abdominal pain Abdominal pain, generalized [facility]* Diagnosis Ovarian cyst, bilateral Other and unspecified ovarian cyst [facility]* Diagnosis Obesity, Class III, BMI 40-49.9 (morbid obesity) (HCC) Morbid obesity [facility] Diagnosis Abnormal menses- Primary Unspecified disorder of menstruation and other abnormal bleeding from female genital tract Iron deficiency anemia, unspecified iron deficiency anemia type [facility]* Diagnosis Thrombocytosis- Primary Essential thrombocythemia Iron deficiency Iron deficiency anemia, unspecified Iron deficiency anemia, unspecified iron deficiency anemia type [facility]* Diagnosis Obesity, Class III, BMI 40-49.9 (morbid obesity) (HCC) Morbid obesity documented in this encounter [facility] note* Diagnosis Obesity, Class III, BMI 40-49.9 (morbid obesity) (HCC) Morbid obesity [facility]* Diagnosis Mild intermittent asthma without complication Unspecified asthma documented in this encounter [facility] note* Diagnosis Terminal ileitis with complication (HCC)- Primary [facility]* Diagnosis Obesity, Class III, BMI 40-49.9 (morbid obesity) (HCC)- Primary Morbid obesity [facility]* Diagnosis Shellfish allergy Allergy to seafood [facility]* Diagnosis Encounter for gynecological examination (general) (routine) without abnormal findings- Primary Screening for cervical cancer Screening for malignant neoplasm of the cervix Encounter for screening for human papillomavirus (HPV) Special screening examination for human papillomavirus (HPV) Screening for thyroid disorder Unintended weight gain Abnormal weight gain [facility]* Diagnosis Obesity, Class III, BMI 40-49.9 (morbid obesity) (HCC)- Primary Morbid obesity [facility]* Diagnosis Obesity, Class III, BMI 40-49.9 (morbid obesity) (HCC) Morbid obesity [facility]* Diagnosis Polyuria- Primary Vision changes Unspecified visual disturbance [facility]* Diagnosis Fatigue, unspecified type- Primary Obesity, Class III, BMI 40-49.9 (morbid obesity) (HCC) Morbid obesity Thrombocytosis Essential thrombocythemia [facility]* Diagnosis Screening for diabetes mellitus (DM)- Primary Screening for diabetes mellitus [facility]* Diagnosis Treatment not available- Primary Procedure not carried out for other reasons [facility]* Diagnosis Right ear pain- Primary Otalgia, unspecified Obesity, Class III, BMI 40-49.9 (morbid obesity) (HCC) Morbid obesity Edema, unspecified type [facility] Diagnosis Shellfish allergy- Primary Allergy to seafood Class 3 severe obesity with body mass index (BMI) of 45.0 to 49.9 in adult, unspecified obesity type, unspecified whether serious comorbidity present (HCC) Mild intermittent asthma without complication Unspecified asthma [facility]* Diagnosis Acute constipation- Primary Unspecified constipation [facility]* Diagnosis Obesity, Class III, BMI 40-49.9 (morbid obesity) (HCC) Morbid obesity [facility]* Diagnosis Acute constipation- Primary Unspecified constipation Obesity, Class III, BMI 40-49.9 (morbid obesity) (HCC) Morbid obesity [facility]* Diagnosis Vitamin D deficiency Unspecified vitamin D deficiency [facility]* Diagnosis Adverse effect of drug, subsequent encounter- Primary [facility]* Diagnosis Vitamin D deficiency- Primary Unspecified vitamin D deficiency Obesity, Class III, BMI 40-49.9 (morbid obesity) (HCC) Morbid obesity Hyperlipidemia LDL goal <130 Other and unspecified hyperlipidemia Mild intermittent asthma without complication Unspecified asthma Congestion of upper airway Other diseases of respiratory system, not elsewhere classified Need for hepatitis C screening test Special screening examination for other specified viral diseases Screening for HIV (human immunodeficiency virus) Special screening examination for other specified viral diseases [facility]* Diagnosis OPENED IN ERROR- Primary To allow closing an encounter opened in error (used in Smart[employer]) [facility]* Diagnosis Obesity, Class III, BMI 40-49.9 (morbid obesity) (HCC) Morbid obesity [facility]* Diagnosis Onset Date Resolution Status Adverse reaction to pneumococcal vaccine acute [facility] Work Phone: Evaluation note* Diagnosis Encounter for screening for malignant neoplasm of colon- Primary Special screening for malignant neoplasms, colon Thrombocytosis Essential thrombocythemia Iron deficiency Iron deficiency anemia, unspecified Iron deficiency anemia, unspecified iron deficiency anemia type [facility]* Diagnosis Acute cough- Primary Hyperlipidemia LDL goal <130 Other and unspecified hyperlipidemia [facility]* Diagnosis Breast pain- Primary Mastodynia documented in this encounter [facility] note* Diagnosis Treatment not available- Primary Procedure not carried out for other reasons documented in this encounter [facility] note* Diagnosis Sore throat- Primary Acute pharyngitis Viral illness Unspecified viral infection, in conditions classified elsewhere and of unspecified site documented in this encounter [facility] note* Diagnosis COVID- Primary documented in this encounter [facility] note* Diagnosis Hemorrhoids, unspecified hemorrhoid type- Primary documented in this encounter [facility] note* Diagnosis Burn- Primary Burn of unspecified site, unspecified degree Mouth sore Other and unspecified diseases of the oral soft tissues documented in this encounter [facility] note* Diagnosis Class 2 obesity with body mass index (BMI) of 39.0 to 39.9 in adult, unspecified obesity type, unspecified whether serious comorbidity present- Primary documented in this encounter [facility] note* Diagnosis Ovarian cyst, right- Primary Other and unspecified ovarian cyst Right lower quadrant abdominal pain Abdominal pain, right lower quadrant Infertility counseling Other procreative management counseling and advice Encounter for preconception consultation Other procreative management counseling and advice documented in this encounter [facility] note* Diagnosis Mild intermittent asthma without complication Unspecified asthma documented in this encounter [facility] note* Diagnosis URI, acute- Primary Acute upper respiratory infections of unspecified site documented in this encounter [facility] note* Diagnosis Neck pain- Primary Cervicalgia documented in this encounter [facility] note* Diagnosis Viral syndrome- Primary Unspecified viral infection, in conditions classified elsewhere and of unspecified site documented in this encounter [facility] note* Diagnosis Mild intermittent asthma with acute exacerbation- Primary Unspecified asthma, with exacerbation Viral URI Acute upper respiratory infections of unspecified site documented in this encounter [facility] note* Diagnosis Mild intermittent asthma with acute exacerbation- Primary Unspecified asthma, with exacerbation documented in this encounter [facility] note* Diagnosis Hyperlipidemia LDL goal <130- Primary Other and unspecified hyperlipidemia Obesity, Class III, BMI 40-49.9 (morbid obesity) (HCC) Morbid obesity Vitamin D deficiency Unspecified vitamin D deficiency Mild intermittent asthma without complication Unspecified asthma documented in this encounter [facility] note* Diagnosis Moderate persistent asthma with (acute) exacerbation- Primary documented in this encounter [facility] note* Diagnosis Obesity, Class III, BMI 40-49.9 (morbid obesity) (HCC)- Primary Morbid obesity [facility]* Diagnosis Bone lesion- Primary Disorder of bone and cartilage, unspecified Dermatitis Contact dermatitis and other eczema, due to unspecified cause Hyperlipidemia LDL goal <130 Other and unspecified hyperlipidemia Obesity, Class III, BMI 40-49.9 (morbid obesity) (HCC) Morbid obesity Vitamin D deficiency Unspecified vitamin D deficiency Mild intermittent asthma without complication Unspecified asthma Thrombocytosis Essential thrombocythemia [facility]* Diagnosis Bone lesion Disorder of bone and cartilage, unspecified [facility]* Diagnosis Acute strain of neck muscle, initial encounter [facility]* Diagnosis Acute cough [facility]* Diagnosis RUQ pain- Primary Abdominal pain, right upper quadrant Hyperlipidemia LDL goal <130 Other and unspecified hyperlipidemia Screening for depression Mild intermittent asthma without complication Unspecified asthma Obesity, Class III, BMI 40-49.9 (morbid obesity) (HCC) Morbid obesity Flank pain Abdominal pain, unspecified site [facility]* Diagnosis Flank pain- Primary Abdominal pain, unspecified site Microscopic hematuria [facility]* Diagnosis Right-sided low back pain with right-sided sciatica, unspecified chronicity- Primary Flank pain Abdominal pain, unspecified site [facility]* Diagnosis Flank pain Abdominal pain, unspecified site Right-sided low back pain with right-sided sciatica, unspecified chronicity [facility]* Diagnosis RUQ pain Abdominal pain, right upper quadrant Flank pain Abdominal pain, unspecified site [facility]* Diagnosis Flank pain Abdominal pain, unspecified site Microscopic hematuria [facility]* Diagnosis Pharyngitis, unspecified etiology- Primary URI, acute Acute upper respiratory infections of unspecified site Microscopic hematuria Adnexal cyst Other specified symptom associated with female genital organs [facility]* Diagnosis Adnexal cyst- Primary Other specified symptom associated with female genital organs [facility]* Diagnosis Adnexal cyst Other specified symptom associated with female genital organs [facility] Acute cough- Primary Mild intermittent asthma with acute exacerbation Unspecified asthma, with exacerbation Folliculitis Other specified disease of hair and hair follicles Acute cough [facility]* Diagnosis Acute cough [facility]* Diagnosis Other intra-abdominal and pelvic swelling, mass and lump- Primary documented in this encounter [facility] note* Diagnosis Pelvic mass- Primary Abdominal or pelvic swelling, mass or lump, unspecified site [facility]* Diagnosis Other intra-abdominal and pelvic swelling, mass and lump [facility]* Diagnosis Endometriosis of ovary- Primary Pelvic pain Preop examination Preoperative examination, unspecified [facility]* Diagnosis Preoperative examination- Primary Preoperative examination, unspecified Endometriosis of ovary [facility]* Diagnosis Pre-operative examination- Primary Preoperative examination, unspecified Excessive daytime sleepiness Hyperlipidemia LDL goal <130 Other and unspecified hyperlipidemia Mild intermittent asthma, uncomplicated (HCC) Unspecified asthma Acute upper respiratory infection Acute upper respiratory infections of unspecified site Thrombocytosis Essential thrombocythemia Obesity, Class III, BMI 40-49.9 (morbid obesity) Morbid obesity Endometriosis of ovary * Assessment & Plan Note - Brittany Ramirez APRN.CNP - 06/19/2024 8:48 AM EDT Associated Problem(s): Obesity, Class III, BMI 40-49.9 (morbid obesity) Assessment: Body mass index is 44.96 kg/m . * Assessment & Plan Note - Brittany Ramirez APRN.CNP - 06/19/2024 8:47 AM EDT Associated Problem(s): Thrombocytosis Assessment: hx, seen hematology in the past, dates back at least 10 years Platelet Count Date Value Ref Range Status 12/22/2023 495 (H) 150 - 400 k/uL Final * Assessment & Plan Note - rBittany Ramirez APRN.CNP - 06/19/2024 8:47 AM EDT Associated Problem(s): Acute upper respiratory infection Assessment: recent URI 2-3 days, nasal congestion/drainage, ear fullness, reviewed supportive care,and to notify surgeon's office if no improvement and follow up with PCP's office * Assessment & Plan Note - Brittany Ramirez APRN.CNP - 06/19/2024 8:46 AM EDT Associated Problem(s): Mild intermittent asthma, uncomplicated (HCC) Assessment: controlled on rx and as needed * Assessment & Plan Note - Brittany Ramirez APRN.CNP - 06/19/2024 8:46 AM EDT Associated Problem(s): Hyperlipidemia LDL goal <130 Assessment: c/w statin * Assessment & Plan Note - Brittany Ramirez APRN.CNP - 06/19/2024 8:46 AM EDT Associated Problem(s): Excessive daytime sleepiness Assessment: +snoring, obesity, denies [place] but suspected [facility] Diagnosis Acute post-operative pain- Primary Endometriosis of ovary Post-operative state Other postprocedural status Pre-operative examination- Primary Preoperative examination, unspecified Excessive daytime sleepiness Hyperlipidemia LDL goal <130 Other and unspecified hyperlipidemia Mild intermittent asthma, uncomplicated (HCC) Unspecified asthma Acute upper respiratory infection Acute upper respiratory infections of unspecified site Thrombocytosis Essential thrombocythemia Obesity, Class III, BMI 40-49.9 (morbid obesity) (HCC) Morbid obesity Cellulitis of left leg- Primary Cellulitis and abscess of leg, except foot documented [facility] encounter [facility]* Diagnosis Acute post-operative pain- Primary Endometriosis of ovary Post-operative state Other postprocedural status Pre-operative examination- Primary Preoperative examination, unspecified Excessive daytime sleepiness Hyperlipidemia LDL goal <130 Other and unspecified hyperlipidemia Mild intermittent asthma, uncomplicated (HCC) Unspecified asthma Acute upper respiratory infection Acute upper respiratory infections of unspecified site Thrombocytosis Essential thrombocythemia Obesity, Class III, BMI 40-49.9 (morbid obesity) (HCC) Morbid obesity Cellulitis of left leg- Primary Cellulitis and abscess of leg, except foot Status post hysterectomy Acquired absence of both cervix and uterus documented in this encounter [facility]* Diagnosis Acute post-operative pain- Primary Endometriosis of ovary Post-operative state Other postprocedural status Pre-operative examination- Primary Preoperative examination, unspecified Excessive daytime sleepiness Hyperlipidemia LDL goal <130 Other and unspecified hyperlipidemia Mild intermittent asthma, uncomplicated (HCC) Unspecified asthma Acute upper respiratory infection Acute upper respiratory infections of unspecified site Thrombocytosis Essential thrombocythemia Obesity, Class III, BMI 40-49.9 (morbid obesity) (HCC) Morbid obesity Class 3 severe obesity with body mass index (BMI) of 45.0 to 49.9 in adult, unspecified obesity type, unspecified whether serious comorbidity present ([facility])- Primary Breast pain Mastodynia Endometriosis Endometriosis, site unspecified documented in this encounter [facility]* Diagnosis Acute post-operative pain- Primary Endometriosis of ovary Post-operative state Other postprocedural status Pre-operative examination- Primary Preoperative examination, unspecified Excessive daytime sleepiness Hyperlipidemia LDL goal <130 Other and unspecified hyperlipidemia Mild intermittent asthma, uncomplicated (HCC) Unspecified asthma Acute upper respiratory infection Acute upper respiratory infections of unspecified site Thrombocytosis Essential thrombocythemia Obesity, Class III, BMI 40-49.9 (morbid obesity) (HCC) Morbid obesity Postoperative state- Primary Other postprocedural status S/P SHANDA (total abdominal hysterectomy) 06/2024 (age 34) for endometriosis with Dr. George Childs ([facility]) Acquired absence of both cervix and uterus S/P left oophorectomy 06/2024 (age 34) for endometriosis with Dr. George Childs ([facility]) Acquired absence of organ, genital organs * Assessment & Plan Note - Sarina Stewart APRN.PIPELINE INTEGRITY ENGINEER - 07/16/2024 10:11 AM EDT Associated Problem(s): S/P SHANDA (total abdominal hysterectomy) 06/2024 (age 33) for endometriosis with Dr. George Childs ([facility]) * Assessment & Plan Note - Sarina Stewart APRN.CNP - 07/16/2024 10:11 AM EDT Associated Problem(s): S/P left oophorectomy 06/2024 (age 33) for endometriosis with Dr. George Childs ([facility]) documented in this encounter [facility]* Diagnosis Acute post-operative pain- Primary Endometriosis of ovary Post-operative state Other postprocedural status Pre-operative examination- Primary Preoperative examination, unspecified Excessive daytime sleepiness Hyperlipidemia LDL goal <130 Other and unspecified hyperlipidemia Mild intermittent asthma, uncomplicated (HCC) Unspecified asthma Acute upper respiratory infection Acute upper respiratory infections of unspecified site Thrombocytosis Essential thrombocythemia Obesity, Class III, BMI 40-49.9 (morbid obesity) (HCC) Morbid obesity Postoperative state- Primary Other postprocedural status S/P SHANDA (total abdominal hysterectomy) 06/2024 (age 34) for endometriosis with Dr. George Childs ([facility]) Acquired absence of both cervix and uterus S/P left oophorectomy 06/2024 (age 34) for endometriosis with Dr. George Childs ([facility]) Acquired absence of organ, genital organs Class 3 severe obesity with body mass index (BMI) of 45.0 to 49.9 in adult, unspecified obesity type, unspecified whether serious comorbidity present (HCC)- Primary documented in this encounter [facility]* Diagnosis Acute post-operative pain- Primary Endometriosis of ovary Post-operative state Other postprocedural status Pre-operative examination- Primary Preoperative examination, unspecified Excessive daytime sleepiness Hyperlipidemia LDL goal <130 Other and unspecified hyperlipidemia Mild intermittent asthma, uncomplicated (HCC) Unspecified asthma Acute upper respiratory infection Acute upper respiratory infections of unspecified site Thrombocytosis Essential thrombocythemia Obesity, Class III, BMI 40-49.9 (morbid obesity) Morbid obesity Nausea- Primary Nausea alone documented in this encounter [facility] for referral (narrative)* Diagnostic Procedure Only (Routine) - Closed Specialty Diagnoses / Procedures Referred By Contac t Referred To Contact US IMAGING Diagnoses Generalized abdominal pain Procedures US ABD RT UPPER QUADRANT US ABDOMINAL REAL TIME W/IMAGE LIMITED Misty Willams APRN.PIPELINE INTEGRITY ENGINEER [address] [place] [address] Us Imaging Referral ID Status Reason Start Date Expiration Date V isits Requested Visits Authorized [id number] Closed Auto-Generate d Referral 09/05/2021 10/05/2022 1 1 [facility] for referral (narrative)* Diagnostic Procedure Only (Routine) - Closed Specialty Diagnoses / Procedures Referred By Contac t Referred To Contact US IMAGING Diagnoses Ovarian cyst, bilateral Procedures US FEMALE PELVIS TRANSVAG US TRANSVAGINAL Misty Willams APRN.PIPELINE INTEGRITY ENGINEER [address] [place] [address] Us Imaging Referral ID Status Reason Start Date Expiration Date V isits Requested Visits Authorized [id number] Closed Auto-Generate d Referral 09/09/2021 02/04/2022 1 1 * Diagnostic Procedure Only (Routine) - Closed Specialty Diagnoses / Procedures Referred By Contac t Referred To Contact US IMAGING Diagnoses Ovarian cyst, bilateral Procedures US FEMALE PELVIS TRANSABD LTD US PELVIC NONOBSTETRIC IMAGE DCMTN LIMITED/F/U Misty Willams APRN.PIPELINE INTEGRITY ENGINEER [address] [place] [address] Us Imaging Referral ID Status Reason Start Date Expiration Date V isits Requested Visits Authorized [id number] Closed Auto-Generate d Referral 09/05/2021 10/05/2022 1 1 [facility] for referral (narrative)* Outpatient Procedure (Routine) - Pending Review Specialty Diagnoses / Procedures Referred By Contac t Referred To Contact [facility] Diagnoses Thrombocytosis Iron deficiency Iron deficiency anemia, unspecified iron deficiency anemia type Procedures COLONOSCOPY DIAGNOSTIC COLONOSCOPY FLX DX W/COLLJ SPEC WHEN PFRMD Lucila Greir APRN.PIPELINE INTEGRITY ENGINEER [address] [facility] [place] [address] [id number] [place] [address] Referral ID Status Reason Start Date Expiration Date Visits Requested Visits Authorized [id number] Pending Review Auto-Generat ed Referral 10/14/2021 10/14/2022 1 1 * Outpatient Procedure (Routine) - Pending Review Specialty Diagnoses / Procedures Referred By Contac t Referred To Contact [facility] Diagnoses Thrombocytosis Iron deficiency Iron deficiency anemia, unspecified iron deficiency anemia type Procedures EGD DIAGNOSTIC ESOPHAGOGASTRODUODENOSC OPY TRANSORAL DIAGNOSTIC Lucila Grier APRN.PIPELINE INTEGRITY ENGINEER [address] [facility] [place] [address] [id number] [place] [address] Referral ID Status Reason Start Date Expiration Date Visits Requested Visits Authorized [id number] Pending Review Auto-Generat ed Referral 10/14/2021 10/14/2022 1 1 [facility] for referral (narrative)* Diagnostic Procedure Only (Routine) - Pending Review Specialty Diagnoses / Procedures Referred By Contac t Referred To Contact [facility] [place] Diagnoses Obesity, Class III, BMI 40-49.9 (morbid obesity) (HCC) Fatigue, unspecified type Procedures HOME SLEEP APNEA TEST (HSAT) SLEEP STD AIRFLOW HRT RATE&O2 SAT EFFORT Misty Marin APRN.PIPELINE INTEGRITY ENGINEER [address] [place] [address] Neurological [place] [id number] Referral ID Status Reason Start Date Expiration Date Visits Requested Visits Authorized [id number] Pending Review Auto-Generat ed Referral 04/18/2022 04/18/2023 1 1 * Consult, Test, Treat (Routine) - Authorized Specialty Diagnoses / Procedures Referred By Contac t Referred To Contact Diagnoses Obesity, Class III, BMI 40-49.9 (morbid obesity) ([facility]) Procedures CONSULT [facility] OFFICE/OUTPATIENT [facility] 60-74 MINUTES Misty Willams APRN.CNP [address] [place] [address] Referral ID Status Reason Start Date Expiration Date Visits Requested Visits Authorized [id number] Authorized PCP Requested Referral 04/18/2022 04/18/2023 1 1 [facility] for referral (narrative)* Outpatient Procedure (Urgent) - Closed Specialty Diagnoses / Procedures Referred By Contac t Referred To Contact [facility] Diagnoses Edema, unspecified type Procedures US LEG VEIN DVT NILA VAS LAB DUP-SCAN XTR VEINS COMPLETE BILATERAL STUDY Ariana Bhagat MD [address] [place] [address] [facility] [address] [place] [address] Referral ID Status Reason Start Date Expiration Date V isits Requested Visits Authorized [id number] Closed Auto-Generate d Referral 05/09/2022 05/09/2023 1 1 * Medication Prior Authorization - Pending Review Specialty Diagnoses / Procedures Referred By Contac t Referred To Contact Diagnoses Obesity, Class III, BMI 40-49.9 (morbid obesity) (HCC) Ariana Bhagat MD [address] [place] [address] Referral ID Status Reason Start Date Expiration Date V isits Requested Visits Authorized [id number] Pending Review 1 1 [facility] for referral (narrative)* Outpatient Procedure (Routine) - Closed Specialty Diagnoses / Procedures [facility] [place] Diagnoses Thrombocytosis Iron deficiency Iron deficiency anemia, unspecified iron deficiency anemia type Procedures COLONOSCOPY DIAGNOSTIC COLONOSCOPY FLX DX W/COLLJ SPEC WHEN PFRMD Lucila Grier APRN.PIPELINE INTEGRITY ENGINEER [address] [place] [address] [facility] [address] [place] [address] Referral ID Status Reason Start Date Expiration Date V isits Requested Visits Authorized [id number] Closed Auto-Generate d Referral 10/14/2021 10/14/2022 1 1 * Outpatient Procedure (Routine) - Closed Specialty Diagnoses / Procedures Referred By Angel Luis blanco Referred To Contact [facility] Diagnoses Thrombocytosis Iron deficiency Iron deficiency anemia, unspecified iron deficiency anemia type Procedures EGD DIAGNOSTIC ESOPHAGOGASTRODUODENOSC OPY TRANSORAL DIAGNOSTIC Lucila Grier APRN.PIPELINE INTEGRITY ENGINEER [address] [facility] [place] [address] [facility] [address] [place] [address] Referral ID Status Reason Start Date Expiration Date V isits Requested Visits Authorized [id number] Closed Auto-Generate d Referral 10/14/2021 10/14/2022 1 1 [facility] for referral (narrative)* Diagnostic Procedure Only (Routine) - Authorized Specialty Diagnoses / Procedures [facility] Referred To Contact [facility] Diagnoses Breast pain Procedures US BREAST LTD LEFT US BREAST UNI REAL TIME WITH IMAGE LIMITED Carolee Daley APRN.CNIlya [address] [place] [address] [facility] [address] [place] [address] Referral ID Status Reason Start Date Expiration Date Visits Requested Visits Authorized [id number] Authorized Auto-Generat ed Referral 12/12/2022 01/11/2024 1 1 * Diagnostic Procedure Only (Routine) - Authorized Specialty Diagnoses / Procedures Referred By Contac t Referred To Contact [facility] Diagnoses Breast pain Procedures CATHY DIAGNOSTIC BILATERAL DIAGNOSTIC MAMMOGRAPHY COMPUTER-AIDED DETCJ BI Carolee Daley APRN.CN [address] [place] [address] [facility] [address] [place] [address] Referral ID Status Reason Start Date Expiration Date Visits Requested Visits Authorized [id number] Authorized Auto-Generat ed Referral 12/12/2022 01/11/2024 1 1 * Diagnostic Procedure Only (Routine) - Authorized Specialty Diagnoses / Procedures Referred By Contac t Referred To Contact BR IM[facility] Diagnoses Breast pain Procedures US BREAST LTD RIGHT US BREAST UNI REAL TIME WITH IMAGE LIMITED Carolee Daley APRN.CNM [address] [place] [address] [facility] [address] [place] [address] Referral ID Status Reason Start Date Expiration Date Visits Requested Visits Authorized [id number] Authorized Auto-Generat ed Referral 12/12/2022 01/11/2024 1 1 [facility] Diagnostic Procedure Only (Urgent) - Closed Specialty Diagnoses / Procedures Referred By Contac t Referred To Contact XR IMAGING Diagnoses Neck pain Procedures XR CERV OTHER 4V AP/LAT/OBL RADEX SPINE CERVICAL 4 OR 5 VIEWS Carolee Hernandez APRN.PIPELINE INTEGRITY ENGINEER [address] [place] [address] [place] [address] Referral ID Status Reason Start Date Expiration Date V isits Requested Visits Authorized [id number] Closed Auto-Generate d Referral 05/10/2023 06/08/2024 1 1 [facility] for referral (narrative)* Diagnostic Procedure Only (Routine) - Closed Specialty Diagnoses / Procedures Referred By Contac t Referred To Contact XR IMAGING Diagnoses Bone lesion Procedures XR KNEE GENERAL 4V AP BOTH/PA BOTH/LAT/MERC LEFT RADIOLOGIC EXAM KNEE COMPLETE 4/MORE VIEWS Ariana Bhagat MD [id number] [place] [address] Referral ID Status Reason Start Date Expiration Date V isits Requested Visits Authorized [id number] Closed Auto-Generate d Referral 09/14/2023 10/13/2024 1 1 [facility] for referral (narrative)* Diagnostic Procedure Only (Routine) - Closed Specialty Diagnoses / Procedures Referred By Contac t Referred To Contact XR IMAGING Diagnoses Bone lesion Procedures XR KNEE GENERAL 4V AP BOTH/PA BOTH/LAT/MERC LEFT RADIOLOGIC EXAM KNEE COMPLETE 4/MORE VIEWS Ariana Bhagat MD [address] [place] [address] [place] [address] Referral ID Status Reason Start Date Expiration Date V isits Requested Visits Authorized [id number] Closed Auto-Generate d Referral 09/14/2023 10/13/2024 1 1 [facility] for referral (narrative)* Diagnostic Procedure Only (Urgent) - Closed Specialty Diagnoses / Procedures Referred By Contac t Referred To Contact XR IMAGING Diagnoses Neck pain Procedures XR CERV OTHER 4V AP/LAT/OBL RADEX SPINE CERVICAL 4 OR 5 VIEWS Carolee Hernandez, JAYDEN [address] [place] [address] [place] [address] Referral ID Status Reason Start Date Expiration Date V isits Requested Visits Authorized [id number] Closed Auto-Generate d Referral 05/10/2023 06/08/2024 1 1 [facility] for referral (narrative)* Diagnostic Procedure Only (Routine) - Authorized Specialty Diagnoses / Procedures Referred By Contac t Referred To Contact US IMAGING Diagnoses RUQ pain Flank pain Procedures US ABD RIGHT UPPER QUADRANT US ABDOMINAL REAL TIME W/IMAGE LIMITED Ariana Bhagat MD [address] [place] [address] [place] [address] Referral ID Status Reason Start Date Expiration Date Visits Requested Visits Authorized [id number] Authorized Auto-Generat ed Referral 4 01/20/2025 1 1 [facility] for referral (narrative)* Diagnostic Procedure Only (Routine) - New Request Specialty Diagnoses / Procedures Referred By Contac t Referred To Contact XR IMAGING Diagnoses Flank pain Right-sided low back pain with right-sided sciatica, unspecified chronicity Procedures XR LUMBAR GENERAL 3V AP/LAT/L5-S1 RADEX SPINE LUMBOSACRAL 2/3 VIEWS Misty Willams APRN.PIPELINE INTEGRITY ENGINEER [address] [place] [address] [place] [address] Referral ID Status Reason Start Date Expiration Date Visits Requested Visits Authorized [id number] New Request Auto-Generat ed Referral 4 01/26/2025 1 1 * Diagnostic Procedure Only (Routine) - New Request Specialty Diagnoses / Procedures Referred By Contac t Referred To Contact XR IMAGING Diagnoses Flank pain Procedures XR THORACIC GENERAL 3V AP/LAT/[place] RADEX SPINE THORACIC 3 VIEWS Misty Willams APRN.PIPELINE INTEGRITY ENGINEER [address] [place] [address] [place] [address] Referral ID Status Reason Start Date Expiration Date Visits Requested Visits Authorized [id number] New Request Auto-Generat ed Referral 4 01/26/2025 1 1 [facility] for referral (narrative)* Diagnostic Procedure Only (Routine) - Closed Specialty Diagnoses / Procedures Referred By Contac t Referred To Contact US IMAGING Diagnoses RUQ pain Flank pain Procedures US ABD RIGHT UPPER QUADRANT US ABDOMINAL REAL TIME W/IMAGE LIMITED Ariana Bhagat MD [address] [place] [address] [place] [address] Referral ID Status Reason Start Date Expiration Date V isits Requested Visits Authorized [id number] Closed Auto-Generate d Referral 12/22/2023 01/20/2025 1 1 [facility] for referral (narrative)* Diagnostic Procedure Only (Routine) - Authorized Specialty Diagnoses / Procedures Referred By Angel Luis t Referred To Contact US IMAGING Diagnoses Adnexal cyst Procedures US FEMALE PELVIS TRANSVAG US TRANSVAGINAL Ariana Bhagat MD [address] [place] [address] [place] [address] Referral ID Status Reason Start Date Expiration Date Visits Requested Visits Authorized [id number] Authorized Auto-Generat ed Referral 02/16/2025 1 1 [facility] for visit Narrative* Outpatient Procedure (Routine) - Closed Specialty Diagnoses / Procedures [facility] Diagnoses Thrombocytosis Iron deficiency Iron deficiency anemia, unspecified iron deficiency anemia type Procedures COLONOSCOPY DIAGNOSTIC COLONOSCOPY FLX DX W/COLLJ SPEC WHEN PFRMD Lucila Grier APRN.PIPELINE INTEGRITY ENGINEER [address] [facility] [place] [address] [facility] [place] [address] [place] [address] Referral ID Status Reason Start Date Expiration Date V isits Requested Visits Authorized [id number] Closed Auto-Generate d Referral 10/14/2021 10/14/2022 1 1 [facility] for visit Narrative* Diagnostic Procedure Only (Routine) - Closed Specialty Diagnoses / Procedures Referred By Contac t Referred To Contact XR IMAGING Diagnoses Bone lesion Procedures XR KNEE GENERAL 4V AP BOTH/PA BOTH/LAT/MERC LEFT RADIOLOGIC EXAM KNEE COMPLETE 4/MORE VIEWS Ariana Bhagat MD [address] [place] [address] [place] [address] Referral ID Status Reason Start Date Expiration Date V isits Requested Visits Authorized [id number] Closed Auto-Generate d Referral 09/14/2023 10/13/2024 1 1 [facility] for visit Narrative* Diagnostic Procedure Only (Urgent) - Closed Specialty Diagnoses / Procedures Referred By Contac t Referred To Contact XR IMAGING Diagnoses Neck pain Procedures XR CERV OTHER 4V AP/LAT/OBL RADEX SPINE CERVICAL 4 OR 5 VIEWS Carolee Hernandez, RESIDENTIAL PROGRAM COORDINATOR.PIPELINE INTEGRITY ENGINEER [address] [place] [address] [place] [address] Referral ID Status Reason Start Date Expiration Date V isits Requested Visits Authorized [id number] Closed Auto-Generate d Referral 05/10/2023 06/08/2024 1 1 [facility] for visit Narrative* Diagnostic Procedure Only (Routine) - Closed Specialty Diagnoses / Procedures Referred By Contac t Referred To Contact XR IMAGING Diagnoses Flank pain Right-sided low back pain with right-sided sciatica, unspecified chronicity Procedures XR LUMBAR GENERAL 3V AP/LAT/L5-S1 RADEX SPINE LUMBOSACRAL 2/3 VIEWS Misty Willams, RESIDENTIAL PROGRAM COORDINATOR.PIPELINE INTEGRITY ENGINEER [address] [place] [address] [place] [address] Referral ID Status Reason Start Date Expiration Date V isits Requested Visits Authorized [id number] Closed Auto-Generate d Referral 12/28/2023 01/26/2025 1 1 [facility] Summary Purpose Family History Relationship Condition Age at Onset Recorded Date/T dikc Not Specified Osteoporosis Unknown Arthritis Unknown Hyperlipidemia Unknown Disorder of thyroid Unknown Asthma Unknown Advance Directives Advance Directive Response Recorded Date/ Time Living Will No August 23, 2021 6:14pm Power of Lighter Captain No August 23 6:14pm Advance Directive Response Recorded Date/ Time Living Will No July 23, 2022 7:44pm Power of Lighter Captain No July 23 7:44pm Advance Directive Response Recorded Date/ Time Living Will No December 09 8:58pm Power of Lighter Captain No December 09, 2022 8:58pm Chief Complaint and Reason for Visit Chief Complaint ABD PAIN Chief Complaint abd pain Chief Complaint CONCERN FOR ALLERGIC REACTION ASTHMA Reason for Visit Adverse reaction to pneumococcal vaccine Reason for Referral Specialty Diagnoses / Procedures Referred By Contac t Referred To Contact Diagnoses Obesity, Class III, BMI 40-49.9 (morbid obesity) ([facility]) Misty Willams, RESIDENTIAL PROGRAM COORDINATOR.PIPELINE INTEGRITY ENGINEER [address] [place] [address] Referral ID Status Reason Start Date Expiration Date V isits Requested Visits Authorized [id number] Authorized 08/06/2021 04/03/2022 1 1 Specialty Diagnoses / Procedures Referred By Contac t Referred To Contact US IMAGING Diagnoses Ovarian cyst, bilateral Procedures US FEMALE PELVIS TRANSABD LTD US PELVIC NONOBSTETRIC IMAGE DCMTN LIMITED/F/U Misty Willams, RESIDENTIAL PROGRAM COORDINATOR.PIPELINE INTEGRITY ENGINEER [address] [place] [address] Us Imaging Referral ID Status Reason Start Date Expiration Date Visits Requested Visits Authorized [id number] Authorized Auto-Generat ed Referral 09/05/2021 10/05/2022 1 1 Specialty Diagnoses / Procedures Referred By Contac t Referred To Contact US IMAGING Diagnoses Generalized abdominal pain Procedures US ABD RT UPPER QUADRANT US ABDOMINAL REAL TIME W/IMAGE LIMITED Misty Willams, RESIDENTIAL PROGRAM COORDINATOR.PIPELINE INTEGRITY ENGINEER [address] [place] [address] Us Imaging Referral ID Status Reason Start Date Expiration Date Visits Requested Visits Authorized [id number] Authorized Auto-Generat ed Referral 09/05/2021 10/05/2022 1 1 Specialty Diagnoses / Procedures Referred By Contac t Referred To Contact Hematology Diagnoses Thrombocytosis Procedures CONSULT TO HEMATOLOGY OFFICE/OUTPATIENT [facility] MDM 60-74 MINUTES Ariana Bhagat MD [address] [place] [address] Referral ID Status Reason Start Date Expiration Date Visits Requested Visits Authorized [id number] Authorized PCP Requested Referral 09/05/2021 09/05/2022 1 1 Specialty Diagnoses / Procedures Referred By Contac t Referred To Contact Gynecology Diagnoses Abnormal menses Iron deficiency anemia, unspecified iron deficiency anemia type Procedures CONSULT TO GYNECOLOGY OFFICE/OUTPATIENT [facility] 60-74 MINUTES Ariana Bhagat MD [address] [place] [address] Referral ID Status Reason Start Date Expiration Date Visits Requested Visits Authorized [id number] Authorized PCP Requested Referral Auto-Generate d Referral 09/21/2021 09/21/2022 1 1 Specialty Diagnoses / Procedures Referred By Contac t Referred To Contact General Surgery Diagnoses Iron deficiency anemia, unspecified iron deficiency anemia type Procedures CONSULT TO GENERAL SURGERY OFFICE/OUTPATIENT [facility] 60-74 MINUTES Ariana Bhagat MD [address] [place] [address] Referral ID Status Reason Start Date Expiration Date Visits Requested Visits Authorized [id number] Authorized PCP Requested Referral 09/21/2021 09/21/2022 1 1 Specialty Diagnoses / Procedures Referred By Contac t Referred To Contact CT IMAGING Diagnoses Terminal ileitis with complication (HCC) Procedures CT ENTEROGRAPHY W IVCON CT ABD & PELVIS W/CONTRAST Lucila Grier, RESIDENTIAL PROGRAM COORDINATOR.PIPELINE INTEGRITY ENGINEER [address] [place] [address] Ct Imaging Referral ID Status Reason Start Date Expiration Date Visits Requested Visits Authorized [id number] Additional Clinical Info Needed Auto-Generat ed Referral 12/06/2021 01/05/2023 1 1 Specialty Diagnoses / Procedures Referred By Contac t Referred To Contact Diagnoses Mild intermittent asthma without complication Ariana Bhagat MD [address] [place] [address] Referral ID Status Reason Start Date Expiration Date V isits Requested Visits Authorized [id number] Pending Review 1 1 Specialty Diagnoses / Procedures Referred By Contac t Referred To Contact General Surgery Diagnoses Hemorrhoids, unspecified hemorrhoid type Procedures CONSULT TO GENERAL SURGERY OFFICE/OUTPATIENT [facility] 60-74 MINUTES Precious Singh, RESIDENTIAL PROGRAM COORDINATOR.PIPELINE INTEGRITY ENGINEER [address] [place] [address] Referral ID Status Reason Start Date Expiration Date Visits Requested Visits Authorized [id number] Authorized PCP Requested Referral 01/08/2023 01/08/2024 1 1 Specialty Diagnoses / Procedures Referred By Contac t Referred To Contact Ariana Bhagat MD [address] [place] [address] Referral ID Status Reason Start Date Expiration Date V isits Requested Visits Authorized [id number] Authorized 03/25/2023 12/20/2023 1 1 Specialty Diagnoses / Procedures Referred By Contac t Referred To Contact Diagnoses Infertility counseling Encounter for preconception consultation Procedures CONSULT TO INFERTILITY CLINIC OFFICE/OUTPATIENT [facility] 60 MINUTES Claudia Langston MD [address] [place] [address] Referral ID Status Reason Start Date Expiration Date Visits Requested Visits Authorized [id number] Authorized PCP Requested Referral Auto-Generate d Referral 05/01/2023 04/30/2024 1 1 Specialty Diagnoses / Procedures Referred By Contac t Referred To Contact [facility] Diagnoses Ovarian cyst, right Right lower quadrant abdominal pain Procedures PELVIC US WHI US PELVIC NONOBSTETRIC REAL-TIME IMAGE COMPLETE Claudia Langston MD [address] [place] [address] [facility] [address] [place] [address] Referral ID Status Reason Start Date Expiration Date Visits Requested Visits Authorized [id number] Pending Review Auto-Generat ed Referral 05/01/2023 04/30/2024 1 1 Specialty Diagnoses / Procedures Referred By Contac t Referred To Contact [facility] Diagnoses Ovarian cyst, right Right lower quadrant abdominal pain Procedures US FEMALE PELVIS TRANSVAG US TRANSVAGINAL Claudia Langston MD [address] [place] [address] [place] [address] Referral ID Status Reason Start Date Expiration Date Visits Requested Visits Authorized [id number] Pending Review Auto-Generat ed Referral 05/01/2023 05/30/2024 1 1 Referral ID Status Reason Start Date Expiration Date V isits Requested Visits Authorized [id number] Authorized 1 1 Referral ID Status Reason Start Date Expiration Date V isits Requested Visits Authorized [id number] Pending Review 1 1 Specialty Diagnoses / Procedures Referred By Contac t Referred To Contact Diagnoses Obesity, Class III, BMI 40-49.9 (morbid obesity) (HCC) Ariana Bhagat MD [address] [place] [address] Referral ID Status Reason Start Date Expiration Date V isits Requested Visits Authorized [id number] Authorized 09/10/2023 05/07/2024 1 1 Specialty Diagnoses / Procedures Referred By Contac t Referred To Contact CT IMAGING Diagnoses Flank pain Microscopic hematuria Procedures CT UROGRAM WO/W IVCON CT ABD & PELVIS W/WO CONTRST 1+ BODY REGNS Ariana Bhagat MD [address] [place] [address] [place] [address] Referral ID Status Reason Start Date Expiration Date Visits Requested Visits Authorized [id number] Authorized Auto-Generat ed Referral 01/17/2024 1 1 Referral ID Status Reason Start Date Expiration Date V isits Requested Visits Authorized [id number] Closed Auto-Generate d Referral 01/17/2024 01/17/2024 1 1 Specialty Diagnoses / Procedures Referred By Contac t Referred To Contact [facility] Diagnoses Other intra-abdominal and pelvic swelling, mass and lump Procedures MRI FEMALE PELVIS WO/W IVCON MRI PELVIS W/O & W/CONTRAST MATERIAL Ariana Bhagat MD [address] [place] [address] [place] [address] Referral ID Status Reason Start Date Expiration Date Visits Requested Visits Authorized [id number] New Request Auto-Generat ed Referral 02/07/2024 03/08/2025 1 1 Specialty Diagnoses / Procedures Referred By Contac t Referred To Contact Diagnoses Pelvic mass Procedures CONSULT TO GYNECOLOGIC/ONCOLOGY OFFICE/OUTPATIENT NEW HIGH MDM 60 MINUTES Ariana Bhagat MD [address] [place] [address] Referral ID Status Reason Start Date Expiration Date Visits Requested Visits Authorized [id number] Authorized PCP Requested Referral Auto-Generate d Referral 02/07/2024 02/06/2025 1 1 Health Concerns Infection Onset Date Last Indicated Resolved Time COVID-19 Confirmed 09/07/2022 09/07/2022 Medications Administered Section Inactive Administered Medications - up to 3 most recent administrations Medication Order MAR Action Action Date Dose Rate Site benzocaine 20% 1 Golden (TOPEX) 1 Golden, TOPICAL, DIRECTED, Starting on Sun11/28/21 at 0830, Until Sun11/28/21 at 1229, DOSING DIRECTED BY PHYSICIAN FOR PROCEDURAL SEDATION ONLY - Pharmaceutical Waste: Aerosol -, Intraprocedure Given 11/28/2021 8:13 AM EDT 1 Golden diphenhydrAMINE 12.5-50 mg injection (BENADRYL) 12.5-50 mg, INTRAVENOUS, DIRECTED, Starting on Sun11/28/21 at 0830, Until Sun11/28/21 at 1229, DOSING DIRECTED BY PHYSICIAN FOR PROCEDURAL SEDATION ONLY, Intraprocedure Given 11/28/2021 8:16 AM EDT 50 mg fentaNYL 50 mcg/mL 25-100 mcg injection (SUBLIMAZE) 25-100 mcg, INTRAVENOUS, DIRECTED, Starting on Sun11/28/21 at 0830, Until Sun11/28/21 at 1229, DOSING DIRECTED BY PHYSICIAN FOR PROCEDURAL SEDATION ONLY, Intraprocedure Given 11/28/2021 8:26 AM EDT 50 mcg Given 11/28/2021 8:14 AM EDT 50 mcg lactated ringers iv infusion 30 mL/hr, INTRAVENOUS, CONTINUOUS, Starting on Sun11/28/21 at 0800, Until Sun11/28/21 at 0842, Preprocedure New Bag/Syringe/Bottle 11/28/2021 7:45 AM EDT 30 mL/hr 30 mL/hr midazolam (PF) 1-5 mg injection (VERSED) 1-5 mg, INTRAVENOUS, DIRECTED, Starting on Sun11/28/21 at 0830, Until Sun11/28/21 at 1229, DOSING DIRECTED BY PHYSICIAN FOR PROCEDURAL SEDATION ONLY, Intraprocedure Given 11/28/2021 8:18 AM EDT 1 mg Given 11/28/2021 8:14 AM EDT 4 mg Additional Source Comments INFORMATION SOURCE (unrecogn ized section and content) DATE CREATED AUTHOR 03/10/2019 [facility] DATE CREATED AUTHOR AUTHOR'S ORGANIZ ATION 03/01/2024 [facility] DATE CREATED AUTHOR AUTHOR'S ORGANIZ ATION 05/10/2024 [facility] DATE CREATED AUTHOR AUTHOR'S ORGANIZ ATION 07/21/2024 [facility] Source Comments (unrecognize d section and content) In the event this informatio n is protected by the Federal Confidentiality of Alcohol and Drug Abuse Patient Records regulations: The Federal rules restrict any use of the information to criminally investigate or prosecute any alcohol or drug abuse patient.[facility] the event this information is protected by the Federal Confidentiality of Alcohol and Drug Abuse Patient Records regulations: The Federal rules restrict any use of the information to criminally investigate or prosecute any alcohol or drug abuse patient.[facility] CampusIn the event this information is protected by the Federal Confidentiality of Alcohol and Drug Abuse Patient Records regulations: The Federal rules restrict any use of the information to criminally investigate or prosecute any alcohol or drug abuse patient.[facility] CampusIn the event this information is protected by the Federal Confidentiality of Alcohol and Drug Abuse Patient Records regulations: The Federal rules restrict any use of the information to criminally investigate or prosecute any alcohol or drug abuse patient.[facility] CampusIn the event this information is protected by the Federal Confidentiality of Alcohol and Drug Abuse Patient Records regulations: The Federal rules restrict any use of the information to criminally investigate or prosecute any alcohol or drug abuse patient.[facility] CampusIn the event this information is protected by the Federal Confidentiality of Alcohol and Drug Abuse Patient Records regulations: The Federal rules restrict any use of the information to criminally investigate or prosecute any alcohol or drug abuse patient.[facility] CampusIn the event this information is protected by the Federal Confidentiality of Alcohol and Drug Abuse Patient Records regulations: The Federal rules restrict any use of the information to criminally investigate or prosecute any alcohol or drug abuse patient.[facility] CampusIn the event this information is protected by the Federal Confidentiality of Alcohol and Drug Abuse Patient Records regulations: The Federal rules restrict any use of the information to criminally investigate or prosecute any alcohol or drug abuse patient.[facility] CampusIn the event this information is protected by the Federal Confidentiality of Alcohol and Drug Abuse Patient Records regulations: The Federal rules restrict any use of the information to criminally investigate or prosecute any alcohol or drug abuse patient.[facility] CampusIn the event this information is protected by the Federal Confidentiality of Alcohol and Drug Abuse Patient Records regulations: The Federal rules restrict any use of the information to criminally investigate or prosecute any alcohol or drug abuse patient.[facility] CampusIn the event this information is protected by the Federal Confidentiality of Alcohol and Drug Abuse Patient Records regulations: The Federal rules restrict any use of the information to criminally investigate or prosecute any alcohol or drug abuse patient.[facility] CampusIn the event this information is protected by the Federal Confidentiality of Alcohol and Drug Abuse Patient Records regulations: The Federal rules restrict any use of the information to criminally investigate or prosecute any alcohol or drug abuse patient.[facility] CampusIn the event this information is protected by the Federal Confidentiality of Alcohol and Drug Abuse Patient Records regulations: The Federal rules restrict any use of the information to criminally investigate or prosecute any alcohol or drug abuse patient.[facility] CampusIn the event this information is protected by the Federal Confidentiality of Alcohol and Drug Abuse Patient Records regulations: The Federal rules restrict any use of the information to criminally investigate or prosecute any alcohol or drug abuse patient.[facility] CampusIn the event this information is protected by the Federal Confidentiality of Alcohol and Drug Abuse Patient Records regulations: The Federal rules restrict any use of the information to criminally investigate or prosecute any alcohol or drug abuse patient.[facility] CampusIn the event this information is protected by the Federal Confidentiality of Alcohol and Drug Abuse Patient Records regulations: The Federal rules restrict any use of the information to criminally investigate or prosecute any alcohol or drug abuse patient.[facility] CampusIn the event this information is protected by the Federal Confidentiality of Alcohol and Drug Abuse Patient Records regulations: The Federal rules restrict any use of the information to criminally investigate or prosecute any alcohol or drug abuse patient.[facility] CampusIn the event this information is protected by the Federal Confidentiality of Alcohol and Drug Abuse Patient Records regulations: The Federal rules restrict any use of the information to criminally investigate or prosecute any alcohol or drug abuse patient.[facility] CampusIn the event this information is protected by the Federal Confidentiality of Alcohol and Drug Abuse Patient Records regulations: The Federal rules restrict any use of the information to criminally investigate or prosecute any alcohol or drug abuse patient.[facility] CampusIn the event this information is protected by the Federal Confidentiality of Alcohol and Drug Abuse Patient Records regulations: The Federal rules restrict any use of the information to criminally investigate or prosecute any alcohol or drug abuse patient.[facility] CampusIn the event this information is protected by the Federal Confidentiality of Alcohol and Drug Abuse Patient Records regulations: The Federal rules restrict any use of the information to criminally investigate or prosecute any alcohol or drug abuse patient.[facility] CampusIn the event this information is protected by the Federal Confidentiality of Alcohol and Drug Abuse Patient Records regulations: The Federal rules restrict any use of the information to criminally investigate or prosecute any alcohol or drug abuse patient.[facility] CampusIn the event this information is protected by the Federal Confidentiality of Alcohol and Drug Abuse Patient Records regulations: The Federal rules restrict any use of the information to criminally investigate or prosecute any alcohol or drug abuse patient.[facility] CampusIn the event this information is protected by the Federal Confidentiality of Alcohol and Drug Abuse Patient Records regulations: The Federal rules restrict any use of the information to criminally investigate or prosecute any alcohol or drug abuse patient.[facility] CampusIn the event this information is protected by the Federal Confidentiality of Alcohol and Drug Abuse Patient Records regulations: The Federal rules restrict any use of the information to criminally investigate or prosecute any alcohol or drug abuse patient.[facility] CampusIn the event this information is protected by the Federal Confidentiality of Alcohol and Drug Abuse Patient Records regulations: The Federal rules restrict any use of the information to criminally investigate or prosecute any alcohol or drug abuse patient.[facility] CampusIn the event this information is protected by the Federal Confidentiality of Alcohol and Drug Abuse Patient Records regulations: The Federal rules restrict any use of the information to criminally investigate or prosecute any alcohol or drug abuse patient.[facility] CampusIn the event this information is protected by the Federal Confidentiality of Alcohol and Drug Abuse Patient Records regulations: The Federal rules restrict any use of the information to criminally investigate or prosecute any alcohol or drug abuse patient.[facility] CampusIn the event this information is protected by the Federal Confidentiality of Alcohol and Drug Abuse Patient Records regulations: The Federal rules restrict any use of the information to criminally investigate or prosecute any alcohol or drug abuse patient.[facility] CampusIn the event this information is protected by the Federal Confidentiality of Alcohol and Drug Abuse Patient Records regulations: The Federal rules restrict any use of the information to criminally investigate or prosecute any alcohol or drug abuse patient.[facility] CampusIn the event this information is protected by the Federal Confidentiality of Alcohol and Drug Abuse Patient Records regulations: The Federal rules restrict any use of the information to criminally investigate or prosecute any alcohol or drug abuse patient.[facility] CampusIn the event this information is protected by the Federal Confidentiality of Alcohol and Drug Abuse Patient Records regulations: The Federal rules restrict any use of the information to criminally investigate or prosecute any alcohol or drug abuse patient.[facility] CampusIn the event this information is protected by the Federal Confidentiality of Alcohol and Drug Abuse Patient Records regulations: The Federal rules restrict any use of the information to criminally investigate or prosecute any alcohol or drug abuse patient.[facility] CampusIn the event this information is protected by the Federal Confidentiality of Alcohol and Drug Abuse Patient Records regulations: The Federal rules restrict any use of the information to criminally investigate or prosecute any alcohol or drug abuse patient.[facility] CampusIn the event this information is protected by the Federal Confidentiality of Alcohol and Drug Abuse Patient Records regulations: The Federal rules restrict any use of the information to criminally investigate or prosecute any alcohol or drug abuse patient.[facility] CampusIn the event this information is protected by the Federal Confidentiality of Alcohol and Drug Abuse Patient Records regulations: The Federal rules restrict any use of the information to criminally investigate or prosecute any alcohol or drug abuse patient.[facility] CampusIn the event this information is protected by the Federal Confidentiality of Alcohol and Drug Abuse Patient Records regulations: The Federal rules restrict any use of the information to criminally investigate or prosecute any alcohol or drug abuse patient.[facility] CampusIn the event this information is protected by the Federal Confidentiality of Alcohol and Drug Abuse Patient Records regulations: The Federal rules restrict any use of the information to criminally investigate or prosecute any alcohol or drug abuse patient.[facility] CampusIn the event this information is protected by the Federal Confidentiality of Alcohol and Drug Abuse Patient Records regulations: The Federal rules restrict any use of the information to criminally investigate or prosecute any alcohol or drug abuse patient.[facility] CampusIn the event this information is protected by the Federal Confidentiality of Alcohol and Drug Abuse Patient Records regulations: The Federal rules restrict any use of the information to criminally investigate or prosecute any alcohol or drug abuse patient.[facility] CampusIn the event this information is protected by the Federal Confidentiality of Alcohol and Drug Abuse Patient Records regulations: The Federal rules restrict any use of the information to criminally investigate or prosecute any alcohol or drug abuse patient.[facility] CampusIn the event this information is protected by the Federal Confidentiality of Alcohol and Drug Abuse Patient Records regulations: The Federal rules restrict any use of the information to criminally investigate or prosecute any alcohol or drug abuse patient.[facility] CampusIn the event this information is protected by the Federal Confidentiality of Alcohol and Drug Abuse Patient Records regulations: The Federal rules restrict any use of the information to criminally investigate or prosecute any alcohol or drug abuse patient.[facility] CampusIn the event this information is protected by the Federal Confidentiality of Alcohol and Drug Abuse Patient Records regulations: The Federal rules restrict any use of the information to criminally investigate or prosecute any alcohol or drug abuse patient.[facility] CampusIn the event this information is protected by the Federal Confidentiality of Alcohol and Drug Abuse Patient Records regulations: The Federal rules restrict any use of the information to criminally investigate or prosecute any alcohol or drug abuse patient.[facility] CampusIn the event this information is protected by the Federal Confidentiality of Alcohol and Drug Abuse Patient Records regulations: The Federal rules restrict any use of the information to criminally investigate or prosecute any alcohol or drug abuse patient.[facility] CampusIn the event this information is protected by the Federal Confidentiality of Alcohol and Drug Abuse Patient Records regulations: The Federal rules restrict any use of the information to criminally investigate or prosecute any alcohol or drug abuse patient.[facility] CampusIn the event this information is protected by the Federal Confidentiality of Alcohol and Drug Abuse Patient Records regulations: The Federal rules restrict any use of the information to criminally investigate or prosecute any alcohol or drug abuse patient.[facility] CampusIn the event this information is protected by the Federal Confidentiality of Alcohol and Drug Abuse Patient Records regulations: The Federal rules restrict any use of the information to criminally investigate or prosecute any alcohol or drug abuse patient.[facility] CampusIn the event this information is protected by the Federal Confidentiality of Alcohol and Drug Abuse Patient Records regulations: The Federal rules restrict any use of the information to criminally investigate or prosecute any alcohol or drug abuse patient.[facility] CampusIn the event this information is protected by the Federal Confidentiality of Alcohol and Drug Abuse Patient Records regulations: The Federal rules restrict any use of the information to criminally investigate or prosecute any alcohol or drug abuse patient.[facility] CampusIn the event this information is protected by the Federal Confidentiality of Alcohol and Drug Abuse Patient Records regulations: The Federal rules restrict any use of the information to criminally investigate or prosecute any alcohol or drug abuse patient.[facility] CampusIn the event this information is protected by the Federal Confidentiality of Alcohol and Drug Abuse Patient Records regulations: The Federal rules restrict any use of the information to criminally investigate or prosecute any alcohol or drug abuse patient.[facility] CampusIn the event this information is protected by the Federal Confidentiality of Alcohol and Drug Abuse Patient Records regulations: The Federal rules restrict any use of the information to criminally investigate or prosecute any alcohol or drug abuse patient.[facility] CampusIn the event this information is protected by the Federal Confidentiality of Alcohol and Drug Abuse Patient Records regulations: The Federal rules restrict any use of the information to criminally investigate or prosecute any alcohol or drug abuse patient.[facility] CampusIn the event this information is protected by the Federal Confidentiality of Alcohol and Drug Abuse Patient Records regulations: The Federal rules restrict any use of the information to criminally investigate or prosecute any alcohol or drug abuse patient.[facility] CampusIn the event this information is protected by the Federal Confidentiality of Alcohol and Drug Abuse Patient Records regulations: The Federal rules restrict any use of the information to criminally investigate or prosecute any alcohol or drug abuse patient.[facility] CampusIn the event this information is protected by the Federal Confidentiality of Alcohol and Drug Abuse Patient Records regulations: The Federal rules restrict any use of the information to criminally investigate or prosecute any alcohol or drug abuse patient.[facility] CampusIn the event this information is protected by the Federal Confidentiality of Alcohol and Drug Abuse Patient Records regulations: The Federal rules restrict any use of the information to criminally investigate or prosecute any alcohol or drug abuse patient.[facility] CampusIn the event this information is protected by the Federal Confidentiality of Alcohol and Drug Abuse Patient Records regulations: The Federal rules restrict any use of the information to criminally investigate or prosecute any alcohol or drug abuse patient.[facility]In the event this information is protected by the Federal Confidentiality of Alcohol and Drug Abuse Patient Records regulations: The Federal rules restrict any use of the information to criminally investigate or prosecute any alcohol or drug abuse patient.[facility] CampusIn the event this information is protected by the Federal Confidentiality of Alcohol and Drug Abuse Patient Records regulations: The Federal rules restrict any use of the information to criminally investigate or prosecute any alcohol or drug abuse patient.[facility] CampusIn the event this information is protected by the Federal Confidentiality of Alcohol and Drug Abuse Patient Records regulations: The Federal rules restrict any use of the information to criminally investigate or prosecute any alcohol or drug abuse patient.[facility] CampusIn the event this information is protected by the Federal Confidentiality of Alcohol and Drug Abuse Patient Records regulations: The Federal rules restrict any use of the information to criminally investigate or prosecute any alcohol or drug abuse patient.[facility] CampusIn the event this information is protected by the Federal Confidentiality of Alcohol and Drug Abuse Patient Records regulations: The Federal rules restrict any use of the information to criminally investigate or prosecute any alcohol or drug abuse patient.[facility] CampusIn the event this information is protected by the Federal Confidentiality of Alcohol and Drug Abuse Patient Records regulations: The Federal rules restrict any use of the information to criminally investigate or prosecute any alcohol or drug abuse patient.[facility] CampusIn the event this information is protected by the Federal Confidentiality of Alcohol and Drug Abuse Patient Records regulations: The Federal rules restrict any use of the information to criminally investigate or prosecute any alcohol or drug abuse patient.[facility] CampusIn the event this information is protected by the Federal Confidentiality of Alcohol and Drug Abuse Patient Records regulations: The Federal rules restrict any use of the information to criminally investigate or prosecute any alcohol or drug abuse patient.[facility] CampusIn the event this information is protected by the Federal Confidentiality of Alcohol and Drug Abuse Patient Records regulations: The Federal rules restrict any use of the information to criminally investigate or prosecute any alcohol or drug abuse patient.[facility] CampusIn the event this information is protected by the Federal Confidentiality of Alcohol and Drug Abuse Patient Records regulations: The Federal rules restrict any use of the information to criminally investigate or prosecute any alcohol or drug abuse patient.[facility] CampusIn the event this information is protected by the Federal Confidentiality of Alcohol and Drug Abuse Patient Records regulations: The Federal rules restrict any use of the information to criminally investigate or prosecute any alcohol or drug abuse patient.[facility] CampusIn the event this information is protected by the Federal Confidentiality of Alcohol and Drug Abuse Patient Records regulations: The Federal rules restrict any use of the information to criminally investigate or prosecute any alcohol or drug abuse patient.[facility] CampusIn the event this information is protected by the Federal Confidentiality of Alcohol and Drug Abuse Patient Records regulations: The Federal rules restrict any use of the information to criminally investigate or prosecute any alcohol or drug abuse patient.[facility] CampusIn the event this information is protected by the Federal Confidentiality of Alcohol and Drug Abuse Patient Records regulations: The Federal rules restrict any use of the information to criminally investigate or prosecute any alcohol or drug abuse patient.[facility] CampusIn the event this information is protected by the Federal Confidentiality of Alcohol and Drug Abuse Patient Records regulations: The Federal rules restrict any use of the information to criminally investigate or prosecute any alcohol or drug abuse patient.[facility] CampusIn the event this information is protected by the Federal Confidentiality of Alcohol and Drug Abuse Patient Records regulations: The Federal rules restrict any use of the information to criminally investigate or prosecute any alcohol or drug abuse patient.[facility] CampusIn the event this information is protected by the Federal Confidentiality of Alcohol and Drug Abuse Patient Records regulations: The Federal rules restrict any use of the information to criminally investigate or prosecute any alcohol or drug abuse patient.[facility] CampusIn the event this information is protected by the Federal Confidentiality of Alcohol and Drug Abuse Patient Records regulations: The Federal rules restrict any use of the information to criminally investigate or prosecute any alcohol or drug abuse patient.[facility] CampusIn the event this information is protected by the Federal Confidentiality of Alcohol and Drug Abuse Patient Records regulations: The Federal rules restrict any use of the information to criminally investigate or prosecute any alcohol or drug abuse patient.[facility] CampusIn the event this information is protected by the Federal Confidentiality of Alcohol and Drug Abuse Patient Records regulations: The Federal rules restrict any use of the information to criminally investigate or prosecute any alcohol or drug abuse patient.[facility] CampusIn the event this information is protected by the Federal Confidentiality of Alcohol and Drug Abuse Patient Records regulations: The Federal rules restrict any use of the information to criminally investigate or prosecute any alcohol or drug abuse patient.[facility] CampusIn the event this information is protected by the Federal Confidentiality of Alcohol and Drug Abuse Patient Records regulations: The Federal rules restrict any use of the information to criminally investigate or prosecute any alcohol or drug abuse patient.[facility] CampusIn the event this information is protected by the Federal Confidentiality of Alcohol and Drug Abuse Patient Records regulations: The Federal rules restrict any use of the information to criminally investigate or prosecute any alcohol or drug abuse patient.[facility] CampusIn the event this information is protected by the Federal Confidentiality of Alcohol and Drug Abuse Patient Records regulations: The Federal rules restrict any use of the information to criminally investigate or prosecute any alcohol or drug abuse patient.[facility] CampusIn the event this information is protected by the Federal Confidentiality of Alcohol and Drug Abuse Patient Records regulations: The Federal rules restrict any use of the information to criminally investigate or prosecute any alcohol or drug abuse patient.[facility] CampusIn the event this information is protected by the Federal Confidentiality of Alcohol and Drug Abuse Patient Records regulations: The Federal rules restrict any use of the information to criminally investigate or prosecute any alcohol or drug abuse patient.[facility] CampusIn the event this information is protected by the Federal Confidentiality of Alcohol and Drug Abuse Patient Records regulations: The Federal rules restrict any use of the information to criminally investigate or prosecute any alcohol or drug abuse patient.[facility] CampusIn the event this information is protected by the Federal Confidentiality of Alcohol and Drug Abuse Patient Records regulations: The Federal rules restrict any use of the information to criminally investigate or prosecute any alcohol or drug abuse patient.[facility] CampusIn the event this information is protected by the Federal Confidentiality of Alcohol and Drug Abuse Patient Records regulations: The Federal rules restrict any use of the information to criminally investigate or prosecute any alcohol or drug abuse patient.[facility] CampusIn the event this information is protected by the Federal Confidentiality of Alcohol and Drug Abuse Patient Records regulations: The Federal rules restrict any use of the information to criminally investigate or prosecute any alcohol or drug abuse patient.[facility] CampusIn the event this information is protected by the Federal Confidentiality of Alcohol and Drug Abuse Patient Records regulations: The Federal rules restrict any use of the information to criminally investigate or prosecute any alcohol or drug abuse patient.[facility] CampusIn the event this information is protected by the Federal Confidentiality of Alcohol and Drug Abuse Patient Records regulations: The Federal rules restrict any use of the information to criminally investigate or prosecute any alcohol or drug abuse patient.[facility] CampusIn the event this information is protected by the Federal Confidentiality of Alcohol and Drug Abuse Patient Records regulations: The Federal rules restrict any use of the information to criminally investigate or prosecute any alcohol or drug abuse patient.[facility] CampusIn the event this information is protected by the Federal Confidentiality of Alcohol and Drug Abuse Patient Records regulations: The Federal rules restrict any use of the information to criminally investigate or prosecute any alcohol or drug abuse patient.[facility] CampusIn the event this information is protected by the Federal Confidentiality of Alcohol and Drug Abuse Patient Records regulations: The Federal rules restrict any use of the information to criminally investigate or prosecute any alcohol or drug abuse patient.[facility] CampusIn the event this information is protected by the Federal Confidentiality of Alcohol and Drug Abuse Patient Records regulations: The Federal rules restrict any use of the information to criminally investigate or prosecute any alcohol or drug abuse patient.[facility] CampusIn the event this information is protected by the Federal Confidentiality of Alcohol and Drug Abuse Patient Records regulations: The Federal rules restrict any use of the information to criminally investigate or prosecute any alcohol or drug abuse patient.[facility] CampusIn the event this information is protected by the Federal Confidentiality of Alcohol and Drug Abuse Patient Records regulations: The Federal rules restrict any use of the information to criminally investigate or prosecute any alcohol or drug abuse patient.[facility] CampusIn the event this information is protected by the Federal Confidentiality of Alcohol and Drug Abuse Patient Records regulations: The Federal rules restrict any use of the information to criminally investigate or prosecute any alcohol or drug abuse patient.[facility] CampusIn the event this information is protected by the Federal Confidentiality of Alcohol and Drug Abuse Patient Records regulations: The Federal rules restrict any use of the information to criminally investigate or prosecute any alcohol or drug abuse patient.[facility] CampusIn the event this information is protected by the Federal Confidentiality of Alcohol and Drug Abuse Patient Records regulations: The Federal rules restrict any use of the information to criminally investigate or prosecute any alcohol or drug abuse patient.[facility] CampusIn the event this information is protected by the Federal Confidentiality of Alcohol and Drug Abuse Patient Records regulations: The Federal rules restrict any use of the information to criminally investigate or prosecute any alcohol or drug abuse patient.[facility] CampusIn the event this information is protected by the Federal Confidentiality of Alcohol and Drug Abuse Patient Records regulations: The Federal rules restrict any use of the information to criminally investigate or prosecute any alcohol or drug abuse patient.[facility] CampusIn the event this information is protected by the Federal Confidentiality of Alcohol and Drug Abuse Patient Records regulations: The Federal rules restrict any use of the information to criminally investigate or prosecute any alcohol or drug abuse patient.[facility] CampusIn the event this information is protected by the Federal Confidentiality of Alcohol and Drug Abuse Patient Records regulations: The Federal rules restrict any use of the information to criminally investigate or prosecute any alcohol or drug abuse patient.[facility] CampusIn the event this information is protected by the Federal Confidentiality of Alcohol and Drug Abuse Patient Records regulations: The Federal rules restrict any use of the information to criminally investigate or prosecute any alcohol or drug abuse patient.[facility] CampusIn the event this information is protected by the Federal Confidentiality of Alcohol and Drug Abuse Patient Records regulations: The Federal rules restrict any use of the information to criminally investigate or prosecute any alcohol or drug abuse patient.[facility] CampusIn the event this information is protected by the Federal Confidentiality of Alcohol and Drug Abuse Patient Records regulations: The Federal rules restrict any use of the information to criminally investigate or prosecute any alcohol or drug abuse patient.[facility] CampusIn the event this information is protected by the Federal Confidentiality of Alcohol and Drug Abuse Patient Records regulations: The Federal rules restrict any use of the information to criminally investigate or prosecute any alcohol or drug abuse patient.[facility] CampusIn the event this information is protected by the Federal Confidentiality of Alcohol and Drug Abuse Patient Records regulations: The Federal rules restrict any use of the information to criminally investigate or prosecute any alcohol or drug abuse patient.[facility] CampusIn the event this information is protected by the Federal Confidentiality of Alcohol and Drug Abuse Patient Records regulations: The Federal rules restrict any use of the information to criminally investigate or prosecute any alcohol or drug abuse patient.[facility] CampusIn the event this information is protected by the Federal Confidentiality of Alcohol and Drug Abuse Patient Records regulations: The Federal rules restrict any use of the information to criminally investigate or prosecute any alcohol or drug abuse patient.[facility] CampusIn the event this information is protected by the Federal Confidentiality of Alcohol and Drug Abuse Patient Records regulations: The Federal rules restrict any use of the information to criminally investigate or prosecute any alcohol or drug abuse patient.[facility] CampusIn the event this information is protected by the Federal Confidentiality of Alcohol and Drug Abuse Patient Records regulations: The Federal rules restrict any use of the information to criminally investigate or prosecute any alcohol or drug abuse patient.[facility] CampusIn the event this information is protected by the Federal Confidentiality of Alcohol and Drug Abuse Patient Records regulations: The Federal rules restrict any use of the information to criminally investigate or prosecute any alcohol or drug abuse patient.[facility] CampusIn the event this information is protected by the Federal Confidentiality of Alcohol and Drug Abuse Patient Records regulations: The Federal rules restrict any use of the information to criminally investigate or prosecute any alcohol or drug abuse patient.[facility] CampusIn the event this information is protected by the Federal Confidentiality of Alcohol and Drug Abuse Patient Records regulations: The Federal rules restrict any use of the information to criminally investigate or prosecute any alcohol or drug abuse patient.[facility] CampusIn the event this information is protected by the Federal Confidentiality of Alcohol and Drug Abuse Patient Records regulations: The Federal rules restrict any use of the information to criminally investigate or prosecute any alcohol or drug abuse patient.[facility] CampusIn the event this information is protected by the Federal Confidentiality of Alcohol and Drug Abuse Patient Records regulations: The Federal rules restrict any use of the information to criminally investigate or prosecute any alcohol or drug abuse patient.[facility] CampusIn the event this information is protected by the Federal Confidentiality of Alcohol and Drug Abuse Patient Records regulations: The Federal rules restrict any use of the information to criminally investigate or prosecute any alcohol or drug abuse patient.[facility] CampusIn the event this information is protected by the Federal Confidentiality of Alcohol and Drug Abuse Patient Records regulations: The Federal rules restrict any use of the information to criminally investigate or prosecute any alcohol or drug abuse patient.[facility] CampusIn the event this information is protected by the Federal Confidentiality of Alcohol and Drug Abuse Patient Records regulations: The Federal rules restrict any use of the information to criminally investigate or prosecute any alcohol or drug abuse patient.[facility] CampusIn the event this information is protected by the Federal Confidentiality of Alcohol and Drug Abuse Patient Records regulations: The Federal rules restrict any use of the information to criminally investigate or prosecute any alcohol or drug abuse patient.[facility] CampusIn the event this information is protected by the Federal Confidentiality of Alcohol and Drug Abuse Patient Records regulations: The Federal rules restrict any use of the information to criminally investigate or prosecute any alcohol or drug abuse patient.[facility] CampusIn the event this information is protected by the Federal Confidentiality of Alcohol and Drug Abuse Patient Records regulations: The Federal rules restrict any use of the information to criminally investigate or prosecute any alcohol or drug abuse patient.[facility] CampusIn the event this information is protected by the Federal Confidentiality of Alcohol and Drug Abuse Patient Records regulations: The Federal rules restrict any use of the information to criminally investigate or prosecute any alcohol or drug abuse patient.[facility] CampusIn the event this information is protected by the Federal Confidentiality of Alcohol and Drug Abuse Patient Records regulations: The Federal rules restrict any use of the information to criminally investigate or prosecute any alcohol or drug abuse patient.[facility] CampusIn the event this information is protected by the Federal Confidentiality of Alcohol and Drug Abuse Patient Records regulations: The Federal rules restrict any use of the information to criminally investigate or prosecute any alcohol or drug abuse patient.[facility] CampusIn the event this information is protected by the Federal Confidentiality of Alcohol and Drug Abuse Patient Records regulations: The Federal rules restrict any use of the information to criminally investigate or prosecute any alcohol or drug abuse patient.[facility] CampusIn the event this information is protected by the Federal Confidentiality of Alcohol and Drug Abuse Patient Records regulations: The Federal rules restrict any use of the information to criminally investigate or prosecute any alcohol or drug abuse patient.[facility] CampusIn the event this information is protected by the Federal Confidentiality of Alcohol and Drug Abuse Patient Records regulations: The Federal rules restrict any use of the information to criminally investigate or prosecute any alcohol or drug abuse patient.[facility] CampusIn the event this information is protected by the Federal Confidentiality of Alcohol and Drug Abuse Patient Records regulations: The Federal rules restrict any use of the information to criminally investigate or prosecute any alcohol or drug abuse patient.[facility] CampusIn the event this information is protected by the Federal Confidentiality of Alcohol and Drug Abuse Patient Records regulations: The Federal rules restrict any use of the information to criminally investigate or prosecute any alcohol or drug abuse patient.[facility] CampusIn the event this information is protected by the Federal Confidentiality of Alcohol and Drug Abuse Patient Records regulations: The Federal rules restrict any use of the information to criminally investigate or prosecute any alcohol or drug abuse patient.[facility] CampusIn the event this information is protected by the Federal Confidentiality of Alcohol and Drug Abuse Patient Records regulations: The Federal rules restrict any use of the information to criminally investigate or prosecute any alcohol or drug abuse patient.[facility] CampusIn the event this information is protected by the Federal Confidentiality of Alcohol and Drug Abuse Patient Records regulations: The Federal rules restrict any use of the information to criminally investigate or prosecute any alcohol or drug abuse patient.[facility] CampusIn the event this information is protected by the Federal Confidentiality of Alcohol and Drug Abuse Patient Records regulations: The Federal rules restrict any use of the information to criminally investigate or prosecute any alcohol or drug abuse patient.[facility] CampusIn the event this information is protected by the Federal Confidentiality of Alcohol and Drug Abuse Patient Records regulations: The Federal rules restrict any use of the information to criminally investigate or prosecute any alcohol or drug abuse patient.[facility] CampusIn the event this information is protected by the Federal Confidentiality of Alcohol and Drug Abuse Patient Records regulations: The Federal rules restrict any use of the information to criminally investigate or prosecute any alcohol or drug abuse patient.[facility] CampusIn the event this information is protected by the Federal Confidentiality of Alcohol and Drug Abuse Patient Records regulations: The Federal rules restrict any use of the information to criminally investigate or prosecute any alcohol or drug abuse patient.[facility] CampusIn the event this information is protected by the Federal Confidentiality of Alcohol and Drug Abuse Patient Records regulations: The Federal rules restrict any use of the information to criminally investigate or prosecute any alcohol or drug abuse patient.[facility] CampusIn the event this information is protected by the Federal Confidentiality of Alcohol and Drug Abuse Patient Records regulations: The Federal rules restrict any use of the information to criminally investigate or prosecute any alcohol or drug abuse patient.[facility] CampusIn the event this information is protected by the Federal Confidentiality of Alcohol and Drug Abuse Patient Records regulations: The Federal rules restrict any use of the information to criminally investigate or prosecute any alcohol or drug abuse patient.[facility] CampusIn the event this information is protected by the Federal Confidentiality of Alcohol and Drug Abuse Patient Records regulations: The Federal rules restrict any use of the information to criminally investigate or prosecute any alcohol or drug abuse patient.[facility] CampusIn the event this information is protected by the Federal Confidentiality of Alcohol and Drug Abuse Patient Records regulations: The Federal rules restrict any use of the information to criminally investigate or prosecute any alcohol or drug abuse patient.[facility] CampusIn the event this information is protected by the Federal Confidentiality of Alcohol and Drug Abuse Patient Records regulations: The Federal rules restrict any use of the information to criminally investigate or prosecute any alcohol or drug abuse patient.[facility] CampusIn the event this information is protected by the Federal Confidentiality of Alcohol and Drug Abuse Patient Records regulations: The Federal rules restrict any use of the information to criminally investigate or prosecute any alcohol or drug abuse patient.[facility] CampusIn the event this information is protected by the Federal Confidentiality of Alcohol and Drug Abuse Patient Records regulations: The Federal rules restrict any use of the information to criminally investigate or prosecute any alcohol or drug abuse patient.[facility] CampusIn the event this information is protected by the Federal Confidentiality of Alcohol and Drug Abuse Patient Records regulations: The Federal rules restrict any use of the information to criminally investigate or prosecute any alcohol or drug abuse patient.[facility] CampusIn the event this information is protected by the Federal Confidentiality of Alcohol and Drug Abuse Patient Records regulations: The Federal rules restrict any use of the information to criminally investigate or prosecute any alcohol or drug abuse patient.[facility] CampusIn the event this information is protected by the Federal Confidentiality of Alcohol and Drug Abuse Patient Records regulations: The Federal rules restrict any use of the information to criminally investigate or prosecute any alcohol or drug abuse patient.[facility] CampusIn the event this information is protected by the Federal Confidentiality of Alcohol and Drug Abuse Patient Records regulations: The Federal rules restrict any use of the information to criminally investigate or prosecute any alcohol or drug abuse patient.[facility] CampusIn the event this information is protected by the Federal Confidentiality of Alcohol and Drug Abuse Patient Records regulations: The Federal rules restrict any use of the information to criminally investigate or prosecute any alcohol or drug abuse patient.[facility] CampusIn the event this information is protected by the Federal Confidentiality of Alcohol and Drug Abuse Patient Records regulations: The Federal rules restrict any use of the information to criminally investigate or prosecute any alcohol or drug abuse patient.[facility] CampusIn the event this information is protected by the Federal Confidentiality of Alcohol and Drug Abuse Patient Records regulations: The Federal rules restrict any use of the information to criminally investigate or prosecute any alcohol or drug abuse patient.[facility] CampusIn the event this information is protected by the Federal Confidentiality of Alcohol and Drug Abuse Patient Records regulations: The Federal rules restrict any use of the information to criminally investigate or prosecute any alcohol or drug abuse patient.[facility] CampusIn the event this information is protected by the Federal Confidentiality of Alcohol and Drug Abuse Patient Records regulations: The Federal rules restrict any use of the information to criminally investigate or prosecute any alcohol or drug abuse patient.[facility] CampusIn the event this information is protected by the Federal Confidentiality of Alcohol and Drug Abuse Patient Records regulations: The Federal rules restrict any use of the information to criminally investigate or prosecute any alcohol or drug abuse patient.[facility] CampusIn the event this information is protected by the Federal Confidentiality of Alcohol and Drug Abuse Patient Records regulations: The Federal rules restrict any use of the information to criminally investigate or prosecute any alcohol or drug abuse patient.[facility] Reason for Visit (unrecogniz ed section and content) Reason Comments Letter Reason Comments Lab Orders Reason Comments Insurance Authorization Epi pen Reason Onset Date Comments Refill Request 06/18/2021 Reason Onset Date Comments Refill Request 07/07/2021 Reason Comments RADIOLOGY DISC Reason Comments Insurance Authorization Medication Problem Reason Comments Results Reason Comments Follow Up labs and meds Reason Comments Results Reason Comments Radiology US Specialty Diagnoses / Procedures Referred By Contac t Referred To Contact US IMAGING Diagnoses Generalized abdominal pain Procedures US ABD RT UPPER QUADRANT US ABDOMINAL REAL TIME W/IMAGE LIMITED Misty Willams, JESSICA.PIPELINE INTEGRITY ENGINEER [address] [place] [address] Us Imaging Referral ID Status Reason Start Date Expiration Date V isits Requested Visits Authorized [id number] Closed Auto-Generate d Referral 09/05/2021 10/05/2022 1 1 Reason Comments Radiology US Specialty Diagnoses / Procedures Referred By Contac t Referred To Contact US IMAGING Diagnoses Ovarian cyst, bilateral Procedures US FEMALE PELVIS TRANSABD LTD US PELVIC NONOBSTETRIC IMAGE DCMTN LIMITED/F/U Misty Willams APRN.PIPELINE INTEGRITY ENGINEER [address] [place] [address] Us Imaging Referral ID Status Reason Start Date Expiration Date V isits Requested Visits Authorized [id number] Closed Auto-Generate d Referral 09/05/2021 10/05/2022 1 1 Reason Comments Med Change Request Reason Comments Orders Results Reason Comments Anemia Specialty Diagnoses / Procedures Referred By Contac t Referred To Contact General Surgery Diagnoses Iron deficiency anemia, unspecified iron deficiency anemia type Procedures CONSULT TO GENERAL SURGERY OFFICE/OUTPATIENT [facility] 60-74 MINUTES Ariana Bhagat MD [address] [place] [address] Referral ID Status Reason Start Date Expiration Date V isits Requested Visits Authorized [id number] Closed PCP Requested Referral 09/21/2021 09/21/2022 1 1 Reason Comments Medication Problem Reason Comments focal colitis Reason Comments Telemedicine Reason Onset Date Comments Refill Request 12/21/2021 Reason Comments Patient Question Reason Comments Refill Request Reason Comments Yearly Exam Reason Comments Insurance Authorization [employer] Reason Comments Appointment Reason Comments Telemedicine Reason Comments Ear Problem Reason Comments Ear Pain Reason Onset Date Comments Refill Request 05/09/2022 Reason Comments Patient Update Reason Onset Date Comments Refill Request 05/11/2022 Reason Comments FYI-No Action Needed Reason Comments HSAT Check In (Adult) Reason Comments Follow Up 1 month follow up oz empic Reason Comments Constipation Reason Onset Date Comments Refill Request 07/26/2022 Reason Comments Follow Up Reason Onset Date Comments Refill Request 08/24/2022 Reason Comments Covid19 Concern Reason Comments Cough Congestion, asthma x 1 week Reason Comments Breast Problem Right breast lump Reason Comments Sore Throat With right side ear pain x 2 days Reason Comments Flu Like Symptoms Reason Comments Hemorrhoids Reason Comments Rectal Problem Hemorrhoids thrombos ed Reason Comments Orders Reason Comments Other Reason Comments Insurance Authorization Reason Comments Ovarian Cyst Reason Onset Date Comments Refill Request 05/07/2023 Reason Comments Ear Problem Bilateral ear pain, cough, fever x 1 day Reason Comments Pain Shoulder and neck pa in x 3 days Reason Comments Cough Reason Comments prior authorization Reason Comments Asthma Reason Comments Cough Cough, congestion x 5 days Reason Onset Date Comments Refill Request 07/16/2023 Reason Onset Date Comments Refill Request 07/20/2023 Reason Comments asthma flare Patient reporting as thma flare 2 weeks ago and treated with prednisone. Having flares this week as well tightness and difficulty breathing Reason Comments Medication Question Reason Comments Zepbound PA Reason Comments Insurance Authorization Zepbound Reason Comments Follow Up Reason Onset Date Comments Refill Request 11/21/2023 Reason Comments Recheck 1 week follow up Specialty Diagnoses / Procedures Referred By Contac t Referred To Contact US IMAGING Diagnoses RUQ pain Flank pain Procedures US ABD RIGHT UPPER QUADRANT US ABDOMINAL REAL TIME W/IMAGE LIMITED Ariana Bhagat MD [address] [place] [address] [place] [address] Referral ID Status Reason Start Date Expiration Date V isits Requested Visits Authorized [id number] Closed Auto-Generate d Referral 12/22/2023 01/20/2025 1 1 Specialty Diagnoses / Procedures Referred By Contac t Referred To Contact CT IMAGING Diagnoses Flank pain Microscopic hematuria Procedures CT UROGRAM WO/W IVCON CT ABD & PELVIS W/WO CONTRST 1+ [place] [address] [place] [address] [place] [address] Referral ID Status Reason Start Date Expiration Date V isits Requested Visits Authorized [id number] Closed Auto-Generate d Referral 01/17/2024 01/17/2024 1 1 Reason Comments Radiology US Specialty Diagnoses / Procedures Referred By Contac t Referred To Contact US IMAGING Diagnoses Adnexal cyst Procedures US FEMALE PELVIS TRANSVAG US TRANSVAGINAL Ariana Bhagat MD [address] [place] [address] [place] [address] Referral ID Status Reason Start Date Expiration Date V isits Requested Visits Authorized [id number] Closed Auto-Generate d Referral 01/18/2024 02/16/2025 1 1 Reason Comments Chest Congestion SOB, Wheeze, headach e, cough, chest pressure x 4 days Derm Problem Inner left thigh, darlyn il in skin, painful Reason Comments Recheck Discuss us results. Specialty Diagnoses / Procedures Referred By Angel Luis t Referred To Contact MR IMAGING Diagnoses Other intra-abdominal and pelvic swelling, mass and lump Procedures MRI FEMALE PELVIS WO/W IVCON MRI PELVIS W/O & W/CONTRAST MATERIAL Ariana Bhagat MD [address] [place] [address] [place] [address] Referral ID Status Reason Start Date Expiration Date V isits Requested Visits Authorized [id number] Closed Auto-Generat ed Referral Patient Cleared - Admin/Chairm an/Director advise to proceed or did not respond 02/08/2024 02/04/2025 1 1 Reason Comments Appointment Cancelled Reason Comments Endometriosis Reason Comments Schedule Surgery RESCHEDULE SURGERY Reason Comments Consult surgery on 07/01/24 a t MAin Reason Comments Surgery Problems Reason Comments Patient Question Patient Update Reason Comments Acute Visit Left thigh red spot warm to touch noticed today Reason Comments Recheck Cellulitis follow up Reason Comments Appointment Video appointment Reason Comments Follow Up Wanting to go back o n Ozempic Reason Comments Post-Op Visit Reason Comments Medication Request Reason Comments Patient Update Patient Question Care Teams (unrecognized sec tion and content) Drum Operator Relationship Specialty Start Date End Date Ariana Bhagat MD [address] [place], [place] [id number] PCP - General Family Practice 08/19/20 Drum Operator Relationship Specialty Start Date End Date Ariana Bhagat MD [address] [place], [place] [id number] PCP - General Family Practice 08/19/20 Drum Operator Relationship Specialty Start Date End Date Ariana Bhagat MD [address] [place], [place] [id number] PCP - General Family Practice 08/19/20 Drum Operator Relationship Specialty Start Date End Date Ariana Bhagat MD [address] [place], [place] [id number] PCP - General Family Practice 08/19/20 Drum Operator Relationship Specialty Start Date End Date Ariana Bhagat MD [address] [place] [address] PCP - General Family Practice 08/19/20 Drum Operator Relationship Specialty Start Date End Date Ariana Bhagat MD [address] [place] [address] PCP - General Family Practice 08/19/20 Drum Operator Relationship Specialty Start Date End Date Ariana Bhagat MD [address] [place] [address] PCP - General Family Practice 08/19/20 Drum Operator Relationship Specialty Start Date End Date Ariana Bhagat MD [address] [place] [address] PCP - General Family Practice 08/19/20 Drum Operator Relationship Specialty Start Date End Date Ariana Bhagat MD [address] [place] [address] PCP - General Family Practice 08/19/20 Drum Operator Relationship Specialty Start Date End Date Ariana Bhagat MD [address] [place] [address] PCP - General Family Practice 08/19/20 Drum Operator Relationship Specialty Start Date End Date Ariana Bhagat MD [address] [place] [address] PCP - General Family Practice 08/19/20 Drum Operator Relationship Specialty Start Date End Date Ariana Bhagat MD [address] [place] [address] PCP - General Family Practice 08/19/20 Drum Operator Relationship Specialty Start Date End Date Ariana Bhagat MD [address] [place] [address] PCP - General Family Practice 08/19/20 Drum Operator Relationship Specialty Start Date End Date Ariana Bhagat MD [address] [place] [address] PCP - General Family Practice 08/19/20 Drum Operator Relationship Specialty Start Date End Date Ariana Bhagat MD [address] [place] [address] PCP - General Family Practice 08/19/20 Drum Operator Relationship Specialty Start Date End Date Ariana Bhagat MD [address] [place] [address] PCP - General Family Practice 08/19/20 Drum Operator Relationship Specialty Start Date End Date Ariana Bhagat MD [address] [place] [address] PCP - General Family Practice 08/19/20 Drum Operator Relationship Specialty Start Date End Date Ariana Bhagat MD [address] [place] [address] PCP - General Family Practice 08/19/20 Drum Operator Relationship Specialty Start Date End Date Ariana Bhagat MD [address] [place] [address] PCP - General Family Medicine 08/19/20 Drum Operator Relationship Specialty Start Date End Date Ariana Bhagat MD [address] [place] [address] PCP - General Family Medicine 08/19/20 Drum Operator Relationship Specialty Start Date End Date Ariana Bhagat MD [address] [place] [address] PCP - General Family Medicine 08/19/20 Drum Operator Relationship Specialty Start Date End Date Ariana Bhagat MD [address] [place] [address] PCP - General Family Medicine 08/19/20 Drum Operator Relationship Specialty Start Date End Date Ariana Bhagat MD [address] [place] [address] PCP - General Family Medicine 08/19/20 Drum Operator Relationship Specialty Start Date End Date Ariana Bhagat MD [address] [place] [address] PCP - General Family Medicine 08/19/20 Drum Operator Relationship Specialty Start Date End Date Ariana Bhagat MD [address] [place] [address] PCP - General Family Medicine 08/19/20 Drum Operator Relationship Specialty Start Date End Date Ariana Bhagat MD [address] [place] [address] PCP - General Family Medicine 08/19/20 Drum Operator Relationship Specialty Start Date End Date Ariana Bhagat MD [address] [place] [address] PCP - General Family Medicine 08/19/20 Drum Operator Relationship Specialty Start Date End Date Ariana Bhagat MD [address] [place] [address] PCP - General Family Medicine 08/19/20 Drum Operator Relationship Specialty Start Date End Date Ariana Bhagat MD [address] [place] [address] PCP - General Family Medicine 08/19/20 Drum Operator Relationship Specialty Start Date End Date Ariana Bhagat MD [address] [place] [address] PCP - General Family Medicine 08/19/20 Drum Operator Relationship Specialty Start Date End Date Ariana Bhagat MD [address] [place] [address] PCP - General Family Medicine 08/19/20 Drum Operator Relationship Specialty Start Date End Date Ariana Bhagat MD [address] [facility], [place] [address] PCP - General Family Medicine 08/19/20 Team Status: Active Member Role Status Dates Dr. Melonie Newman MD Family Provider Active Dr. Ariana Bhagat MD Primary Care Provider Active Team Status: Inactive Member Role Status Dates Dr. Ariana Bhagat MD Primary Care Provider Active Dr. Lucia Troncoso MD Emergency Provider Active Drum Operator Relationship Specialty Start Date End Date Ariana Bhagat MD [address] [facility], [place] [address] PCP - General Family Medicine 08/19/20 Drum Operator Relationship Specialty Start Date End Date Ariana Bhagat MD [address] [place], [place] [address] PCP - General Family Medicine 08/19/20 Drum Operator Relationship Specialty Start Date End Date Ariana Bhagat MD [address] [place], [place] [address] PCP - General Family Medicine 08/19/20 Drum Operator Relationship Specialty Start Date End Date Ariana Bhagat MD [address] [place], [place] [address] PCP - General Family Medicine 08/19/20 Drum Operator Relationship Specialty Start Date End Date Ariana Bhagat MD [address] [facility], [place] [address] PCP - General Family Medicine 08/19/20 Drum Operator Relationship Specialty Start Date End Date Ariana Bhagat MD [address] [place], [place] [address] PCP - General Family Medicine 08/19/20 Drum Operator Relationship Specialty Start Date End Date Ariana Bhagat MD [address] [place], [place] [address] PCP - General Family Medicine 08/19/20 Drum Operator Relationship Specialty Start Date End Date Ariana Bhagat MD [address] [place], [place] [address] PCP - General Family Medicine 08/19/20 Drum Operator Relationship Specialty Start Date End Date Ariana Bhagat MD [address] [place], [place] [address] PCP - General Family Medicine 08/19/20 Drum Operator Relationship Specialty Start Date End Date Ariana Bhagat MD [address] [place], [place] [address] PCP - General Family Medicine 08/19/20 Team Status: Inactive Member Role Status Dates Dr. Ariana Bhagat MD Primary Care Provider, Referring Provider Active Evan HIGHTOWER, PA Attending Provider Active Team Status: Inactive Member Role Status Dates Dr. Ariana Bhagat MD Primary Care Provider Active Dr. Jorge Mehta DO Emergency Provider Active Drum Operator Relationship Specialty Start Date End Date Ariana Bhagat MD [address] [place], [place] [address] PCP - General Family Medicine 08/19/20 Drum Operator Relationship Specialty Start Date End Date Ariana Bhagat MD [address] [place], [place] [id number] PCP - General Family Medicine 08/19/20 Drum Operator Relationship Specialty Start Date End Date Ariana Bhagat MD [address] [place], [place] [address] PCP - General Family Medicine 08/19/20 Drum Operator Relationship Specialty Start Date End Date Ariana Bhagat MD [address] [place], [place] [address] PCP - General Family Medicine 08/19/20 Drum Operator Relationship Specialty Start Date End Date Ariana Bhagat MD [address] [place] [address] PCP - General Family Medicine 08/19/20 Drum Operator Relationship Specialty Start Date End Date Ariana Bhagat MD [address] [place] [address] PCP - General Family Medicine 08/19/20 Drum Operator Relationship Specialty Start Date End Date Ariana Bhagat MD [address] [place] [address] PCP - General Family Medicine 08/19/20 Drum Operator Relationship Specialty Start Date End Date Ariana Bhagat MD [address] [place] [address] PCP - General Family Medicine 08/19/20 Drum Operator Relationship Specialty Start Date End Date Ariana Bhagat MD [address] [place] [address] PCP - General Family Medicine 08/19/20 Drum Operator Relationship Specialty Start Date End Date Ariana Bhagat MD [address] [place], [place] [address] PCP - General Family Medicine 08/19/20 Drum Operator Relationship Specialty Start Date End Date Ariana Bhagat MD [address] [place] [address] PCP - General Family Medicine 08/19/20 Drum Operator Relationship Specialty Start Date End Date Ariana Bhagat MD [address] [place] [address] PCP - General Family Medicine 08/19/20 Drum Operator Relationship Specialty Start Date End Date Ariana Bhagat MD [address] [place] [address] PCP - General Family Medicine 08/19/20 Drum Operator Relationship Specialty Start Date End Date Ariana Bhagat MD [address] [place] [address] PCP - General Family Medicine 08/19/20 Drum Operator Relationship Specialty Start Date End Date Ariana Bhagat MD [address] [place] [address] PCP - General Family Medicine 08/19/20 Drum Operator Relationship Specialty Start Date End Date Ariana Bhagat MD [address] [place] [address] PCP - General Family Medicine 08/19/20 Drum Operator Relationship Specialty Start Date End Date Ariana Bhagat MD [address] [place] [address] PCP - General Family Medicine 08/19/20 Drum Operator Relationship Specialty Start Date End Date Ariana Bhagat MD [address] [place] [address] PCP - General Family Medicine 08/19/20 Drum Operator Relationship Specialty Start Date End Date Ariana Bhagat MD [address] [place] [address] PCP - General Family Medicine 08/19/20 Drum Operator Relationship Specialty Start Date End Date Ariana Bhagat MD [address] [place] [address] PCP - General Family Medicine 08/19/20 Drum Operator Relationship Specialty Start Date End Date Ariana Bhagat MD [address] [place] [address] PCP - General Family Medicine 08/19/20 Misty Willams APRN.PIPELINE INTEGRITY ENGINEER [address] [place] [address] [facility] 01/14/24 Jerilyn Dai RESIDENTIAL PROGRAM COORDINATOR.PIPELINE INTEGRITY ENGINEER [address] [place] [address] [facility] 01/14/24 Drum Operator Relationship Specialty Start Date End Date Ariana Bhagat MD [address] [place] [address] PCP - General Family Medicine 08/19/20 Misty Willams, RESIDENTIAL PROGRAM COORDINATOR.PIPELINE INTEGRITY ENGINEER [address] [place] [address] [facility] 01/14/24 Jerilyn Dai RESIDENTIAL PROGRAM COORDINATOR.PIPELINE INTEGRITY ENGINEER [address] [place] [address] [facility] 01/14/24 Drum Operator Relationship Specialty Start Date End Date Ariana Bhagat MD [address] [place] [address] PCP - General Family Medicine 08/19/20 Misty Willams APRN.PIPELINE INTEGRITY ENGINEER [address] [place] [address] [facility] 01/14/24 Jerilyn Dai APRN.PIPELINE INTEGRITY ENGINEER [address] [place] [address] [facility] 01/14/24 Drum Operator Relationship Specialty Start Date End Date Ariana Bhagat MD [address] [place] [address] PCP - General Family Medicine 08/19/20 Misty Willams APRN.PIPELINE INTEGRITY ENGINEER [address] [place] [address] [facility] 01/14/24 Jerilyn Dai RESIDENTIAL PROGRAM COORDINATOR.PIPELINE INTEGRITY ENGINEER [address] [place] [address] [facility] Drum Operator Relationship Specialty Start Date End Date Ariana Bhagat MD [address] [place] [address] PCP - General Family Medicine 08/19/20 Misty Willams RESIDENTIAL PROGRAM COORDINATOR.PIPELINE INTEGRITY ENGINEER [address] [place] [address] [facility] 01/14/24 Jerilyn Dai RESIDENTIAL PROGRAM COORDINATOR.PIPELINE INTEGRITY ENGINEER [address] [place] [address] [facility] 01/14/24 Drum Operator Relationship Specialty Start Date End Date Ariana Bhagat MD [address] [facility] [place] [address] PCP - General Family Medicine 08/19/20 Misty Willams APRN.PIPELINE INTEGRITY ENGINEER [address] [facility] [place] [address] [facility] 01/14/24 Jerilyn Dai APRN.PIPELINE INTEGRITY ENGINEER [address] [facility] [place] [address] [facility] 01/14/24 Drum Operator Relationship Specialty Start Date End Date Ariana Bhagat MD [address] [facility] [place] [address] PCP - General Family Medicine 08/19/20 Misty Willams APRN.PIPELINE INTEGRITY ENGINEER [address] [facility] [place] [address] [facility] 01/14/24 Jerilyn Dai APRN.PIPELINE INTEGRITY ENGINEER [address] [facility] [place] [address] [facility] 01/14/24 Drum Operator Relationship Specialty Start Date End Date Ariana Bhagat MD [address] [place] [address] PCP - General Family Medicine 08/19/20 Misty Willams APRN.PIPELINE INTEGRITY ENGINEER [address] [facility] [place] [address] [facility] 01/14/24 Jerilyn Dai APRN.PIPELINE INTEGRITY ENGINEER [address] [place] [address] [facility] 01/14/24 Drum Operator Relationship Specialty Start Date End Date Ariana Bhagat MD [address] [place] [address] PCP - General Family Medicine 08/19/20 Misty Willams APRN.PIPELINE INTEGRITY ENGINEER [address] [facility] [place] [address] [facility] 01/14/24 Jerilyn Dai APRN.PIPELINE INTEGRITY ENGINEER [address] [place] [address] [facility] 01/14/24 Drum Operator Relationship Specialty Start Date End Date Ariana Bhagat MD [address] [place] [address] PCP - General Family Medicine 08/19/20 Misty Willams RESIDENTIAL PROGRAM COORDINATOR.PIPELINE INTEGRITY ENGINEER [address] [facility] [place] [address] [facility] 01/14/24 Jerilyn Dai RESIDENTIAL PROGRAM COORDINATOR.PIPELINE INTEGRITY ENGINEER [address] [place] [address] [facility] 01/14/24 Drum Operator Relationship Specialty Start Date End Date Ariana Bhagat MD [address] [place] [address] PCP - General Family Medicine 08/19/20 Misty Willams RESIDENTIAL PROGRAM COORDINATOR.PIPELINE INTEGRITY ENGINEER [address] [facility] [place] [address] [facility] 01/14/24 Jerilyn Dai APRN.PIPELINE INTEGRITY ENGINEER [address] [facility] [place] [address] [facility] 01/14/24 Drum Operator Relationship Specialty Start Date End Date Ariana Bhagat MD [address] [facility] [place] [address] PCP - General Family Medicine 08/19/20 Misty Willams APRN.PIPELINE INTEGRITY ENGINEER [address] [facility] [place] [address] [facility] 01/14/24 Jerilyn Dai RESIDENTIAL PROGRAM COORDINATOR.PIPELINE INTEGRITY ENGINEER [address] [place] [address] [facility] 01/14/24 Drum Operator Relationship Specialty Start Date End Date Ariana Bhagat MD [address] [facility] [place] [address] PCP - General Family Medicine 08/19/20 Misty Willams RESIDENTIAL PROGRAM COORDINATOR.PIPELINE INTEGRITY ENGINEER [address] [facility] [place] [address] [facility] 01/14/24 Jerilyn Dai RESIDENTIAL PROGRAM COORDINATOR.PIPELINE INTEGRITY ENGINEER [address] [facility] [place] [address] [facility] 01/14/24 Drum Operator Relationship Specialty Start Date End Date Ariana Bhagat MD [address] [place] [address] PCP - General Family Medicine 08/19/20 Misty Willams RESIDENTIAL PROGRAM COORDINATOR.PIPELINE INTEGRITY ENGINEER [address] [facility] [place] [address] [facility] 01/14/24 Jerilyn Dai RESIDENTIAL PROGRAM COORDINATOR.PIPELINE INTEGRITY ENGINEER [address] [place] [address] [facility] 01/14/24 Drum Operator Relationship Specialty Start Date End Date Ariana Bhagat MD [address] [place] [address] PCP - General Family Medicine 08/19/20 Misty Willams RESIDENTIAL PROGRAM COORDINATOR.PIPELINE INTEGRITY ENGINEER [address] [place] [address] [facility] 01/14/24 Jerilyn Dai RESIDENTIAL PROGRAM COORDINATOR.PIPELINE INTEGRITY ENGINEER [address] [place] [address] [facility] 01/14/24 Drum Operator Relationship Specialty Start Date End Date Ariana Bhagat MD [address] [place] [address] PCP - General Family Medicine 08/19/20 Misty Willams RESIDENTIAL PROGRAM COORDINATOR.PIPELINE INTEGRITY ENGINEER [address] [place] [address] [facility] 01/14/24 Jerilyn Dai RESIDENTIAL PROGRAM COORDINATOR.PIPELINE INTEGRITY ENGINEER [address] [place] [address] [facility] 01/14/24 Drum Operator Relationship Specialty Start Date End Date Ariana Bhagat MD [address] [place] [address] PCP - General Family Medicine 08/19/20 Misty Willams APRN.PIPELINE INTEGRITY ENGINEER [address] [facility] [place] [address] [facility] 01/14/24 Jerilyn Dai APRN.PIPELINE INTEGRITY ENGINEER [address] [place] [address] [facility] 01/14/24 Drum Operator Relationship Specialty Start Date End Date Ariana Bhagat MD [address] [place] [address] PCP - General Family Medicine 08/19/20 Misty Willams RESIDENTIAL PROGRAM COORDINATOR.PIPELINE INTEGRITY ENGINEER [address] [facility] [place] [address] [facility] 01/14/24 Jerilyn Dai RESIDENTIAL PROGRAM COORDINATOR.PIPELINE INTEGRITY ENGINEER [address] [facility] [place] [address] [facility] 01/14/24 Drum Operator Relationship Specialty Start Date End Date Ariana Bhagat MD [address] [place] [address] PCP - General Family Medicine 08/19/20 Misty Willams APRN.PIPELINE INTEGRITY ENGINEER [address] [facility] [place] [address] [facility] 01/14/24 Jerilyn Dai APRN.PIPELINE INTEGRITY ENGINEER [address] [place] [address] [facility] 01/14/24 Drum Operator Relationship Specialty Start Date End Date Ariana Bhagat MD [address] [place] [address] PCP - General Family Medicine 08/19/20 Misty Willams, RESIDENTIAL PROGRAM COORDINATOR.PIPELINE INTEGRITY ENGINEER [address] [place] [address] [facility] 01/14/24 Jerilyn Dai RESIDENTIAL PROGRAM COORDINATOR.PIPELINE INTEGRITY ENGINEER [address] [place] [address] [facility] 01/14/24 Drum Operator Relationship Specialty Start Date End Date Ariana Bhagat MD [address] [place] [address] PCP - General Family Medicine 08/19/20 Misty Willams, RESIDENTIAL PROGRAM COORDINATOR.PIPELINE INTEGRITY ENGINEER [address] [place] [address] [facility] 01/14/24 Jerilyn Dai RESIDENTIAL PROGRAM COORDINATOR.PIPELINE INTEGRITY ENGINEER [address] [place] [address] [facility] 01/14/24 Drum Operator Relationship Specialty Start Date End Date Ariana Bhagat MD [address] [place] [address] PCP - General Family Medicine 08/19/20 Misty Willams, RESIDENTIAL PROGRAM COORDINATOR.PIPELINE INTEGRITY ENGINEER [address] [place] [address] [facility] 01/14/24 Jerilyn Dai RESIDENTIAL PROGRAM COORDINATOR.PIPELINE INTEGRITY ENGINEER [address] [facility] [place] [address] [facility] 01/14/24 Drum Operator Relationship Specialty Start Date End Date Ariana Bhagat MD [address] [place], [place] [address] [phone] PCP - General Family Medicine 08/19/20 Misty Willams RESIDENTIAL PROGRAM COORDINATOR.PIPELINE INTEGRITY ENGINEER [address] [place] [address] [facility] 01/14/24 Jerilyn Dai RESIDENTIAL PROGRAM COORDINATOR.PIPELINE INTEGRITY ENGINEER [address] [place] [address] [facility] 01/14/24 Drum Operator Relationship Specialty Start Date End Date Ariana Bhagat MD [address] [place] [address] PCP - General Family Medicine 08/19/20 Misty Willams, RESIDENTIAL PROGRAM COORDINATOR.PIPELINE INTEGRITY ENGINEER [address] [place] [address] [facility] 01/14/24 Jerilyn Dai RESIDENTIAL PROGRAM COORDINATOR.PIPELINE INTEGRITY ENGINEER [address] [place] [address] [facility] 01/14/24 Drum Operator Relationship Specialty Start Date End Date Ariana Bhagat MD [address] [place], [place] [address] [phone] PCP - General Family Medicine 08/19/20 Misty Willams RESIDENTIAL PROGRAM COORDINATOR.PIPELINE INTEGRITY ENGINEER [address] [facility] [place] [address] [facility] 01/14/24 Jerilyn Dai APRN.PIPELINE INTEGRITY ENGINEER [address] [facility] [place] [address] [facility] 01/14/24 Drum Operator Relationship Specialty Start Date End Date Ariana Bhagat MD [address] [place] [address] PCP - General Family Medicine 08/19/20 Misty Willams APRN.PIPELINE INTEGRITY ENGINEER [address] [facility] [place] [address] [facility] 01/14/24 Jerilyn Dai RESIDENTIAL PROGRAM COORDINATOR.PIPELINE INTEGRITY ENGINEER [address] [place] [address] [facility] 01/14/24 Drum Operator Relationship Specialty Start Date End Date Ariana Bhagat MD [address] [facility] [place] [address] PCP - General Family Medicine 08/19/20 Misty Willams RESIDENTIAL PROGRAM COORDINATOR.PIPELINE INTEGRITY ENGINEER [address] [facility] [place] [address] [facility] 01/14/24 Jerilyn Dai RESIDENTIAL PROGRAM COORDINATOR.PIPELINE INTEGRITY ENGINEER [address] [facility] [place] [address] [facility] 01/14/24 Drum Operator Relationship Specialty Start Date End Date Ariana Bhagat MD [address] [facility], [place] [address] PCP - General [facility] 08/19/20 Misty Willams APRN.PIPELINE INTEGRITY ENGINEER [address] [facility], [place] [address] [facility] 01/14/24 Jerilyn Dai APRN.PIPELINE INTEGRITY ENGINEER [address] [facility], [place] [address] [facility] 01/14/24 Drum Operator Relationship Specialty Start Date End Date Ariana Bhagat MD [address] [facility], [place] [address] PCP - [facility] Medicine 08/19/20 Misty Willams APRN.PIPELINE INTEGRITY ENGINEER [address] [facility], [place] [address] [facility] 01/14/24 Jerilyn Dai APRN.PIPELINE INTEGRITY ENGINEER [address] [facility], [place] [address] [facility] 01/14/24 Goals (unrecognized section and content) Goals may be documented in a n alternate sectionGoals may be documented in an alternate sectionGoals may be documented in an alternate section FOR RECORDS PERTAINING TO PATIENTS WHO ARE OR HAVE BEEN ENROLLED IN A CHEMICAL DEPENDENCY/SUBSTANCEABUSE PROGRAM, SOME INFORMATION MAY BE OMITTED. This clinical summary was aggregated from multiple sources. Caution should be exercised in using it in the provision of clinical care. This summary normalizes information from multiple sources, and as a consequence, information in this document may materially change the coding, format and clinical context of patient data. In addition, data may be omitted in some cases. CLINICAL DECISIONS SHOULD BE BASED ON THE PRIMARY CLINICAL RECORDS. [facility] [employer]. provides no warranty or guarantee of the accuracy or completeness of information in this document.
[2024-07-26 23:51] LABS: Color, Urine Yellow (Yellow); Glucose, Dipstick Normal (Normal); Ketone-Dipstick Negative (Negative); Leukocyte Esterase-Dipstick Negative /ul (Negative); Nitrite-Dipstick Negative (Negative); Occult Blood-Urine Negative /ul (Negative); Protein-Dipstick Negative (Negative); Urine Bilirubin Dipstick Negative (Negative); Urine Clarity Clear (Clear); Urine Urobilinogen Normal (Normal)
[2024-07-26 23:52] LABS: Bacteria 1+ /hpf (None Seen); Squamous Epithelial Cells - UA 5-10 SEEN /hpf (5-10); Yeast-Urine RARE /hpf (None Seen)
[2024-07-26 23:54] LABS: ALB/GLOB Ratio 1.2 RATIO (0.9-2.4); AST(SGOT) 17 U/L (<=31); Alanine Aminotransfer ALT/SGPT 7 U/L (<=34); Albumin, Serum 4.2 g/dL (3.5-5.0); Alkaline Phosphatase 75 U/L (35-104); Anion Gap 11 (5-15); BUN 20 mg/dL (4-19); BUN/Creat Ratio 31.5 RATIO (10-20); Calcium,Total 9.2 mg/dL (7.6-11.0); Chloride 103 mmol/L (98-108); Creatinine, Serum 0.64 mg/dL (0.70-1.20); EST Glomerular Filtration Rate 118 (>60); Globulin 3.4 g/dL (2.2-4.2); Glucose 88 mg/dL (70-99); Potassium 4.3 mmol/L (3.3-5.1); Protein, Total 7.5 g/dL (5.9-8.4); Sodium Level 137 mmol/L (133-145); Total Bilirubin 0.27 mg/dL (0.00-1.30)
[2024-07-27 00:30] VITALS: BP 131/78; PULSE 69; RESP 18; O2SAT 100
[2024-07-27 01:02] VITALS: BP 130/64; PULSE 81; RESP 18; TEMP 36.9; O2SAT 99
== END 2024-07-27 01:04 | disposition home or self-care (01) ==
PROVIDERS: Emergency Provider Emergency Medicine; PCP Family Medicine; Visit Provider Emergency Medicine
DX: R10.31 Right lower quadrant pain (principal); N32.89 Other specified disorders of bladder; Z90.710 Acquired absence of both cervix and uterus; J45.909 Unspecified asthma, uncomplicated
CPT/HCPCS: 74177; 80053; 81001; 85025; 96374; 99283; Q9967; A4216; J2405